=== PATIENT | male | born 1950 | race Hispanic/Latino ===

== ENCOUNTER 2017-01-13 08:40 | Day surgery (SDC) | payer MEDICARE ==
[2015-01-21 13:24] VITALS: PULSE 58
[2017-01-05 10:38] VITALS: BMI 31.0
[2017-01-13] MEDS ORDERED: Flumazenil 0.1 mg/ml Inj (5ml) IVP ONE (12:52)
[2017-01-13] MEDS ORDERED: Metoprolol 1 mg/ml Inj IVP ONE ×2 (12:52→13:17)
[2017-01-13] MEDS ORDERED: Naloxone 0.4 mg/ml Inj (Adult) ONE (12:52)
[2017-01-13] MEDS ORDERED: Midazolam 2 MG/2 ML VIAL ONE (12:52)
[2017-01-13] MEDS ORDERED: Midazolam 2 MG/2 ML VIAL IV ONE ×5 (12:59→13:14)
[2017-01-13] MEDS ORDERED: Sodium Chloride 0.9% 1,000 ML IV SCH (13:45)
--- NOTE | 2017-01-13 13:56 | CARD ---
APPROVED REPORT EKG Measurement Heart [id number] OR 168P-3 [id number] <Conclusion> Sinus rhythm with marked sinus arrhythmia RBBB LAD/LAHB PRWP NSSTW changes Prolonged QTc
[2017-01-13 14:52] VITALS: BP 118/57; PULSE 52; RESP 20; TEMP 97.8; O2SAT 98
--- NOTE | 2017-01-13 19:13 | CARD ---
APPROVED REPORT EXAM: Transesophageal echocardiogram with color flow Doppler and Synchronized Cardioversion. INDICATION Atrial Fibrillation 2D DIMENSIONS Left Atrium (2D)5.0 (1.6-4.0cm) Aortic Valve AoV Peak Edpjyett611.0cm/Jc Peak GR.10mmHg Mitral Valve E/A ratio0.0 TDI E/Lateral E'0.0E/Medial E'0.0 Reason For Test : SURAJ before cardioversion PROCEDURE After obtaining informed consent, patient underwent transesophageal echo in the Echo Lab. Type of Sedation : Conscious Sedation Sedation was administered by . Sedation was achieved with Versed and , Fentanyl 4 mg and 150mcg intravenously. Transesophageal probe was inserted and advanced into esophagus without difficulty. Echo enhancement indication: R/O Septal defect. Echo enhancement agent administered: Agitated Saline The SURAJ was performed without complications. Synchronized Cardioversion attempted: Successful Synchronized Cardioversion acheived with 200 Joules after first attempt(s). Rhythm following Synchronized Cardioversion: Normal Sinus Rhythm Throughout the procedure, the blood pressure, pulse oximetry, cardiac rhythm, and rate were monitored. The patient tolerated the procedure without adverse effects. Recovery from conscious sedation was uneventful and vital signs were stable. LEFT VENTRICLE The left ventricle is normal size. There is mild to moderate concentric left ventricular hypertrophy. The left ventricular function is normal.EF-60-65% There is normal LV segmental wall motion. A fib No left ventricle thrombus noted on this study. There is no ventricular septal defect visualized. There is no left ventricular aneurysm. There is no mass noted in the left ventricle. RIGHT VENTRICLE The right ventricle is mildly dilated. There is normal right ventricular wall thickness. The right ventricular systolic function is normal. ATRIA The left atrium is mildly dilated. The right atrium is moderately dilated. The interatrial septum is intact with no evidence for an atrial septal defect. AORTIC VALVE The aortic valve is normal in structure. There is trace aortic regurgitation. There is no aortic valvular stenosis. There is no aortic valvular vegetation. MITRAL VALVE The mitral valve leaflets are thickened. There is no evidence of mitral valve prolapse. There is no mitral valve stenosis. Mitral regurgitation is moderate. TRICUSPID VALVE The tricuspid valve leaflets display thickening. There is trace tricuspid regurgitation. There is no tricuspid valve prolapse or vegetation. There is no tricuspid valve stenosis. PULMONIC VALVE The pulmonary valve is normal in structure. There is trace pulmonic valvular regurgitation. There is no pulmonic valvular stenosis. GREAT VESSELS The aortic root is normal in size. The ascending aorta is normal in size. The pulmonary artery is normal. The IVC is normal in size and collapses >50% with inspiration. PERICARDIAL EFFUSION There is a trace pericardial effusion. There is no pleural effusion. <Conclusion> The left ventricle is normal size. There is mild to moderate concentric left ventricular hypertrophy. The left ventricular function is normal.EF-60-65%. Plaque in descending aorta. Intact intra atrial septum by color flow and bubble study. Velocity in RAÚL >0.4 m/s 200 Joules Synchronized Cardioversion done, pt converted to NSR. cc;Dr. Payne.
== END 2017-01-13 15:34 | disposition home or self-care (01) ==
LOC: TEE 08:40 → EDSTATUS 10:00 → TEE 15:34
PROVIDERS: ATTEND Internal Medicine Cardiovascular Disease
DX: I48.91 Unspecified atrial fibrillation (principal); I11.0 Hypertensive heart disease with heart failure; I50.9 Heart failure, unspecified; I25.10 Atherosclerotic heart disease of native coronary artery without angina pectoris
CPT/HCPCS: 92960; 93005; 93312; J2250; J3010; J7040

== ENCOUNTER 2017-04-04 13:13 | Inpatient (IN) | payer MEDICARE ==
[2017-04-04 13:14] VITALS: BMI 31.0
[2017-04-04] MEDS ORDERED: Sodium Chloride 0.9% 1,000 ML IV STA (14:14)
[2017-04-04] MEDS ORDERED: Iohexol 240 (50 ml) ONE (14:18)
--- NOTE | 2017-04-04 14:19 | ED PDOC ---
Arrival/HPI - General Chief Complaint: GI Problem Time Seen by Provider: 04/04/17 14:00 Historian: Patient - History of Present Illness Narrative History of Present Illness (Text): 04/04/17 14:10 Blanco Russell is a 66 year old male, whose past medical history includes, COPD and A fib, who presents to the emergency department complaining of constipaiton in which he has bowel movements every 4 days. Patient states that whenever he eats, he feels that his food gets stuck. Patient says he tried drinking prune juice, apple juice, or laxatives which brought some relief but their effects did not last. Patient denies any nausea, vomiting, or any other complaint at this time. Time/Duration: < month Symptom Onset: Gradual Symptom Course: Intermittent Activities at Onset: Rest Context: Home Past Medical History - Provider Review Nursing Documentation Reviewed: Yes - Infectious Disease Hx of Infectious Diseases: None - Tetanus Immunization Tetanus Immunization: Unknown - Cardiac Hx Atrial Fibrillation: Yes Hx Pacemaker: No - Pulmonary Hx Respiratory Disorders: Yes Hx Bronchitis: Yes Hx Chronic Obstructive Pulmonary Disease (COPD): Yes Hx Pneumonia: Yes - Neurological Hx Paralysis: No - HEENT Hx HEENT Disorder: No - Renal Hx Renal Disorder: No - Endocrine/Metabolic Hx Endocrine Disorders: No - Hematological/Oncological Hx Blood Transfusions: No - Musculoskeletal/Rheumatological Hx Musculoskeletal Disorders: Yes (RA) Hx Arthritis: Yes Hx Rheumatoid Arthritis: Yes - Gastrointestinal Hx Gastrointestinal Disorders: No - Genitourinary/Gynecological Hx Genitourinary Disorders: No - Psychiatric Hx Emotional Abuse: No Hx Physical Abuse: No Hx Substance Use: No - Surgical History Other/Comment: 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 SURAJ. R foot surgery - Anesthesia Hx Anesthesia: Yes Hx Anesthesia Reactions: No Hx Malignant Hyperthermia: No - Suicidal Assessment Feels Threatened In Home Enviroment: No Family/Social History - Physician Review Nursing Documentation Reviewed: Yes Family/Social History: No Known Family HX Smoking Status: Heavy Smoker > 10 Cigarettes Daily Hx Alcohol Use: Yes Frequency of alcohol use: Socially Hx Substance Use: No Allergies/Home Meds Allergies/Adverse Reactions: Allergies No Known Allergies Allergy (Verified 01/20/15 15:42) Home Medications: Home Meds Medication Instructions Recorded Confirmed Atenolol [Tenormin] 25 mg PO DAILY 01/21/15 04/04/17 Digoxin 0.125 mg PO DAILY 01/21/15 04/04/17 Ezetimibe [Zetia] 10 mg PO DAILY 01/21/15 04/04/17 Furosemide [Lasix] 40 mg PO DAILY 01/21/15 04/04/17 Isosorbide Mononitrate [Imdur] 30 mg PO DAILY 01/21/15 04/04/17 Rosuvastatin Calcium [Crestor] 20 mg PO DAILY 01/21/15 04/04/17 amLODIPine [Norvasc] 10 mg PO DAILY 01/21/15 04/04/17 ALPRAZolam [Xanax] 0.25 mg PO DAILY PRN 01/31/15 04/04/17 Omeprazole [Prilosec] 40 mg PO DAILY 01/31/15 04/04/17 Potassium Chloride [Klor-Con 10] 10 meq PO DAILY 02/28/15 04/04/17 Aspirin [Aspirin EC] 325 mg PO DAILY 01/05/17 04/04/17 Folic Acid 1 mg PO DAILY 01/05/17 04/04/17 Methotrexate 15 mg PO WED 01/05/17 04/04/17 Multivit-Min/FA/Lycopen/Lutein 1 tab PO DAILY 01/05/17 04/04/17 [Centrum Silver Tablet] traMADol [Ultram] 50 mg PO QID PRN 01/05/17 04/04/17 Clopidogrel [Plavix] 1 tab PO DAILY 04/04/17 04/04/17 Digoxin [Lanoxin] 1 tab PO DAILY 04/04/17 04/04/17 Review of Systems - Physician Review All systems were reviewed & negative as marked: Yes - Review of Systems Constitutional: absent: Fevers, Night Sweats Eyes: absent: Vision Changes ENT: absent: Hearing Changes Respiratory: absent: SOB, Cough Cardiovascular: absent: Chest Pain Gastrointestinal: Constipation (bowel movement every four days). absent: Abdominal Pain Genitourinary Male: absent: Dysuria Musculoskeletal: absent: Arthralgias Skin: absent: Rash Neurological: absent: Headache, Dizziness Endocrine: absent: Diaphoresis Hemo/Lymphatic: absent: Adenopathy Physical Exam Vital Signs Reviewed: Yes Vital Signs Temp Pulse Resp BP Pulse Ox 04/04/17 17:32 64 18 125/64 98 04/04/17 16:16 69 18 128/68 98 04/04/17 15:14 75 18 130/70 98 04/04/17 13:56 97.8 F 77 18 131/68 98 Temperature: Afebrile Blood Pressure: Normal Pulse: Regular Respiratory Rate: Normal Appearance: Positive for: Well-Appearing, Non-Toxic, Comfortable Pain Distress: None Mental Status: Positive for: Alert and Oriented X 3 - Systems Exam Head: Present: Atraumatic, Normocephalic Pupils: Present: PERRL Extroacular Muscles: Present: EOMI Conjunctiva: Present: Normal Mouth: Present: Moist Mucous Membranes Neck: Present: Normal Range of Motion Respiratory/Chest: Present: Clear to Auscultation, Good Air Exchange. No: Respiratory Distress, Accessory Muscle Use Cardiovascular: Present: Regular Rate and Rhythm, Normal S1, S2. No: Murmurs Abdomen: Present: Tenderness (tender upper abdominal area) Back: Present: Normal Inspection Upper Extremity: Present: Normal Inspection. No: Cyanosis, Edema Lower Extremity: Present: Normal Inspection. No: Edema Neurological: Present: GCS=15, CN II-XII Intact, Speech Normal Skin: Present: Warm, Dry, Normal Color. No: Rashes Psychiatric: Present: Alert, Oriented x 3, Normal Insight, Normal Concentration Medical Decision Making - RAD Interpretation Radiology Orders: 04/04/17 14:14 ABD PELVIS PO & IV CONTRAST [CT] Stat - Medication Orders Current Medication Orders: Sodium Chloride (Sodium Chloride 0.9%) 1,000 mls @ 100 mls/hr IV .Q10H STA Stop: 04/05/17 00:13 Last Admin: 04/04/17 15:00 Dose: 100 mls/hr Sodium Chloride (Sodium Chloride 0.9%) 1,000 mls @ 100 mls/hr IV .Q10H OLMAN Discontinued Medications Famotidine (Pepcid) 20 mg IVP STAT STA Stop: 04/04/17 14:15 Last Admin: 04/04/17 15:10 Dose: 20 mg Iohexol (Omnipaque 240 (50 Ml)) Confirm Administered Dose 50 ml .ROUTE .STK-MED ONE Stop: 04/04/17 14:19 Iohexol (Omnipaque 350 100 Ml) Confirm Administered Dose 350 mg .ROUTE .STK-MED ONE Stop: 04/04/17 16:59 ED OBSERVATION Date of observation admission: 04/04/17 Time of observation admission: 14:00 - Observation admission statement Patient is being placed in observation because:: Impression: 66 year old male complaining of constipation in which he has a bowel movement every four days. Differential Diagnosis included but are not limited to: R/o obstruction vs. gastritis vs. constipation - Goals of Observation Goals of observation are:: Plan: -- Abdomen and Pelvis CT with contrast -- Labs -- Pepcid and IV fluids -- Reassess and disposition 8:28:17 - Patient has pancreatitis. CT shows pancreatitis and gallstones. No cholecytitis. I discussed case with Dr. Barroso and will admit to med/surg for pancreatitis. US ordered and Dr. Barroso will f/u. - Scribe Statement The provider has reviewed the documentation as recorded by the Albino Sousa Provider Scribe Attestation: All medical record entries made by the Scribe were at my direction and personally dictated by me. I have reviewed the chart and agree that the record accurately reflects my personal performance of the history, physical exam, medical decision making, and the department course for this patient. I have also personally directed, reviewed, and agree with the discharge instructions and disposition. Disposition/Present on Arrival - Present on Arrival Any Indicators Present on Arrival: No History of DVT/PE: No History of Uncontrolled Diabetes: No Urinary Catheter: No History of Decub. Ulcer: No History Surgical Site Infection Following: None - Disposition Have Diagnosis and Disposition been Completed?: Yes Diagnosis: Pancreatitis Disposition Time: 17:45 Patient Plan: Admission Condition: FAIR
[2017-04-04 15:29] LABS: BASO # 0.05 K/mm3 (0.0-2.0); BASO % 0.3 % (0.0-3.0); EOS # 0.3 (0.0-0.7); EOS % 2.1 % (1.5-5.0); GRAN # 11.21 (1.4-6.5); GRAN % 72.3 % (50.0-68.0); HEMATOCRIT 44.7 % (42.0-52.0); LYMPH # 2.6 (1.2-3.4); LYMPH % 16.5 % (22.0-35.0); MEAN CELL VOLUME 90.1 fl (80.0-105.0); MEAN CORPUSCULAR HEMOGLOBIN 33.1 pg (25.0-35.0); MEAN CORPUSCULAR HGB CONC 36.7 g/dl (31.0-37.0); MEAN PLATELET VOLUME 10.9 fl (7.0-11.0); MONO # 1.4 (0.1-0.6); MONO % 8.8 % (1.0-6.0); RED CELL DISTRIBUTION WIDTH 14.1 % (11.5-14.5); WHITE BLOOD COUNT 15.5 10^3/ul (4.5-11.0)
[2017-04-04 15:36] LABS: INR 1.11 (0.93-1.08); PARTIAL THROMBOPLASTIN TIME 27.1 Seconds (23.7-30.8)
[2017-04-04 16:17] LABS: ALB/GLOB RATIO 1.5 (1.1-1.8); ALKALINE PHOSPHATASE 70 U/L (38-133); ALT/SGPT 50 U/L (7-56); AST/SGOT 41 U/L (15-59); BILIRUBIN,TOTAL 0.9 mg/dL (0.2-1.3); BLOOD UREA NITROGEN 11 mg/dL (7-21); CALCIUM 9.3 mg/dL (8.4-10.5); CARBON DIOXIDE 26 mmol/L (21-33); CHLORIDE 100 mmol/L (98-107); GFR AFRICAN-AMERICAN > 60; GLUCOSE,RANDOM 117 mg/dL (70-110); POTASSIUM 3.6 mmol/L (3.6-5.0); SODIUM 137 mmol/L (132-148); TOTAL PROTEIN 7.4 g/dL (5.8-8.3)
[2017-04-04 16:26] LABS: LIPASE 2531 U/L (23-300)
[2017-04-04] MEDS ORDERED: Iohexol 350 MG/100 ML VIAL ONE (16:58)
[2017-04-04] MEDS ORDERED: Sodium Chloride 0.9% 1,000 ML IV SCH (17:00)
--- NOTE | 2017-04-04 17:35 | CT ---
PROCEDURE: CT Abdomen and Pelvis with contrast HISTORY: abd pain, constipation r/o obstruction COMPARISON: None. TECHNIQUE: Contrast dose: 92 mL of Omnipaque 350. Axial and reformatted coronal and sagittal CT images of the abdomen and pelvis were obtained after IV contrast and oral contrast administration. Radiation dose: Total exam DLP = 749.3 mGy-cm. This CT exam was performed using one or more of the following dose reduction techniques: Automated exposure control, adjustment of the mA and/or kV according to patient size, and/or use of iterative reconstruction technique. FINDINGS: LOWER THORAX: There are small cystic formation seen at the right lower lobe right middle lobe and to a less degree at the left lower lobe has a shape of honey cramping suggestive of mild lung fibrosis likely UIP. LIVER: Unremarkable. No gross lesion or ductal dilatation. GALLBLADDER AND BILE DUCTS: The gallbladder is mildly to moderately distended likely contains small stones and sludge. No evidence of acute cholecystitis. PANCREAS: There are mild inflammatory changes and fat stranding surrounding the pancreatic body and tail suspicious for pancreatitis. There are scattered small foci of calcification in the pancreas suggestive of chronic pancreatitis. The main pancreatic duct is not dilated. SPLEEN: Unremarkable. ADRENALS: Unremarkable. No mass. KIDNEYS AND URETERS: The kidneys enhance symmetrically without evidence of hydronephrosis. There are cystic lesions seen in both kidneys larger and more on the right. VASCULATURE: Unremarkable. No aortic aneurysm. BOWEL: [id number] constipation more prominent at the right colon. O evidence of high-grade bowel obstruction. Scattered colonic diverticulosis are seen without CT evidence of diverticulitis. APPENDIX: There is no evidence of appendicitis. PERITONEUM: Unremarkable. No free fluid. No free air. LYMPH NODES: Unremarkable. No enlarged lymph nodes. BLADDER: Mild urinary bladder wall thickening. REPRODUCTIVE: Moderately enlarged prostate. BONES: No acute fractureMild compression deformity of L1 noted with the age is indeterminate in this exam. Mild osteoarthritic changes. . OTHER FINDINGS: There is moderate-size fat containing left inguinal hernia. The sigmoid colon is slightly protruded inside the right inguinal hernia. IMPRESSION: No evidence of bowel obstruction. Moderate constipation more prominent at the right colon. Fat stranding and inflammatory changes surrounding the pancreas suspicious for pancreatitis. Punctate calcification in the pancreas suggestive of chronic pancreatitis. Distended gallbladder likely contains small stones or sludge without evidence of acute cholecystitis. Mild hepatic steatosis. Age indeterminate mild compression deformity of L1.
--- NOTE | 2017-04-04 18:19 | CP.PCM.HP ---
<Vanna Rodríguez - Last Filed: 04/05/17 00:07> History of Present Illness - History of Present Illness History of Present Illness: CC: Epigastric pain and constipation Patient is a 66 y/o M with PMH of COPD, h/o Afib with h/o SURAJ/cardioversion, CAD with 15 stents, chronic constipation, RA and OA presenting with epigastric pain, and inability to empty his bowel completely for 10 days. Patient states he has been suffering from constipation for few weeks now, has tried prune juice , Colace, and miralax but still feels like food is stuck in his belly. Last time patient had bowel movement was 4 days ago, and the stool was hard. Patient denies radiation of the pain. Patient uses tramadol RA induced LE pain. Patient otherwise denies cp, sob, nausea, vomiting or diarrhea, denies chills, fever, denies dysurea, increased frequency, hematochezia, brbpr, denies dizziness or lightheadedness. Cardiology: Dr Payne. PMH: COPD, h/o Afib with h/o SURAJ/cardioversion, CAD with 15 stents, chronic constipation, RA and OA PSH: PCI, SURAJ, wrist surgery 2nd to RA. FMH: Non contributory Social: smokes cigar for 15 years, smoked tobacco prior to that, denies alcohol or illicit drug use. Lives with . Home meds: please see emr for full list. Present on Admission - Present on Admission Any Indicators Present on Admission: No History of DVT/PE: No History of Uncontrolled Diabetes: No Urinary Catheter: No Decubitus Ulcer Present: No Review of Systems - Review of Systems All systems: reviewed and no additional remarkable complaints except Review of Systems: As per HPI. Past Patient History - Infectious Disease Hx of Infectious Diseases: None - Tetanus Immunizations Tetanus Immunization: Unknown - Past Social History Smoking Status: Heavy Smoker > 10 Cigarettes Daily Cigar Use: Yes (For 15 years. ) Alcohol: None Drugs: Denies Home Situation {Lives}: With Family - CARDIAC Hx Atrial Fibrillation: Yes Hx Pacemaker: No - PULMONARY Hx Respiratory Disorders: Yes Hx Bronchitis: Yes Hx Chronic Obstructive Pulmonary Disease (COPD): Yes Hx Pneumonia: Yes - NEUROLOGICAL Hx Paralysis: No - HEENT Hx HEENT Problems: No - RENAL Hx Chronic Kidney Disease: No - ENDOCRINE/METABOLIC Hx Endocrine Disorders: No - HEMATOLOGICAL/ONCOLOGICAL Hx Blood Transfusions: No - MUSCULOSKELETAL/RHEUMATOLOGICAL Hx Musculoskeletal Disorders: Yes (RA) Hx Arthritis: Yes Hx Rheumatoid Arthritis: Yes - GASTROINTESTINAL Hx Gastrointestinal Disorders: No - GENITOURINARY/GYNECOLOGICAL Hx Genitourinary Disorders: No - PSYCHIATRIC Hx Emotional Abuse: No Hx Physical Abuse: No Hx Substance Use: No - SURGICAL HISTORY Other/Comment: 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 SURAJ. R foot surgery - ANESTHESIA Hx Anesthesia: Yes Hx Anesthesia Reactions: No Hx Malignant Hyperthermia: No Meds Allergies/Adverse Reactions: Allergies Allergy/AdvReac Type Severity Reaction Status Date / Time No Known Allergies Allergy Verified 01/20/15 15:42 Physical Exam - Constitutional Appears: No Acute Distress - Head Exam Head Exam: ATRAUMATIC, NORMAL INSPECTION, NORMOCEPHALIC - Eye Exam Eye Exam: EOMI, Normal appearance, PERRL. absent: Scleral icterus Pupil Exam: NORMAL ACCOMODATION, PERRL - ENT Exam ENT Exam: Mucous Membranes Moist, Normal Exam - Neck Exam Neck exam: Positive for: Normal Inspection. Negative for: Full Rom - Respiratory Exam Respiratory Exam: Clear to Auscultation Bilateral, NORMAL BREATHING PATTERN. absent: Rales, Rhonchi, Wheezes, Respiratory Distress, Stridor - Cardiovascular Exam Cardiovascular Exam: REGULAR RHYTHM, RRR, +S1, +S2. absent: Bradycardia, Tachycardia, Gallop, JVD, Rubs, Systolic Murmur - GI/Abdominal Exam GI & Abdominal Exam: Normal Bowel Sounds, Soft. absent: Distended, Firm, Guarding, Rigid, Tenderness - Extremities Exam Extremities exam: Positive for: normal inspection. Negative for: pedal edema, tenderness - Back Exam Back exam: NORMAL INSPECTION - Neurological Exam Neurological exam: Alert, Oriented x3, Reflexes Normal - Psychiatric Exam Psychiatric exam: Normal Affect, Normal Mood - Skin Skin Exam: Dry, Intact, Normal Color, Warm Results - Vital Signs Recent Vital Signs: Last Vital Signs Temp 97.8 F 04/04/17 13:56 Pulse 64 04/04/17 17:32 Resp 18 04/04/17 17:32 BP 125/64 04/04/17 17:32 Pulse Ox 98 04/04/17 17:32 - Labs Result Diagrams: 04/04/17 15:10 04/04/17 15:40 Labs: Laboratory Results - last 24 hr 04/04/17 04/04/17 04/04/17 15:10 15:10 15:40 WBC 15.5 H D RBC 4.96 Hgb 16.4 Hct 44.7 MCV 90.1 MCH 33.1 MCHC 36.7 RDW 14.1 Plt Count 210 MPV 10.9 Gran % 72.3 H Lymph % (Auto) 16.5 L [place] % (Auto) 8.8 H Eos % (Auto) 2.1 Baso % (Auto) 0.3 Gran # 11.21 H Lymph # 2.6 [place] # 1.4 H Eos # 0.3 Baso # 0.05 PT 12.0 H INR 1.11 H APTT 27.1 Sodium 137 Potassium 3.6 Chloride 100 Carbon Dioxide 26 Anion Gap 15 BUN 11 Creatinine 0.7 Est GFR ( Amer) > 60 Est GFR (Non-Af Amer) > 60 Random Glucose 117 H Calcium 9.3 Total Bilirubin 0.9 AST 41 ALT 50 Alkaline Phosphatase 70 Total Protein 7.4 Albumin 4.4 Globulin 3.0 Albumin/Globulin Ratio 1.5 Lipase 2531 H Assessment & Plan - Assessment and Plan (Free Text) Assessment: 66 y/o M with PMH of COPD, h/o Afib with h/o SURAJ/cardioversion, Anxiety, CAD with 15 stents, chronic constipation, RA and OA presenting with epigastric pain and constipation. Patient was found to have elevated lipase and pancreatitis on CT. Plan: 1) Epigastric pain likely 2nd to pancreatitis induced by cholelithiasis - Consider trygliceridemia - r/o cholangitis, r/o intestinal ischemia - Lipase was 2531 - LRTs are normal. - CT with pancreatitis and stone versus sludge. - Will obtain abdominal u/s to evaluate the biliary system - Surgery consult - NPO except meds. - NS@125 cc/hr. 2) Leukocytosis- with no tachycardia, afebrile, - Likely reactive -Will hold off antibiotics and reevaluate. 2) Chronic constipation - Will consider suppository 3) CAD with stents - will continue with plavix, - Will continue with atenolol - Will continue imdur for stable angina. 4) HLD- Will continue zetia and lipitor 5) HTN- Will continue with Norvasc 6) h/o Afib with h/o SURAJ and cardioversion - will continue with digoxin 7) Rheumatoid arthritis - will continue methotrexate - continue with folic acid. 8) OA- will hold tramadol 2nd to constipation 9) Tobacco abuse- will start nicotine patch 10) Gi prophyalxis: Pepcid, DVT prophylaxis: SCDs. 11) Anxiety- will continue home dose of xanax, prn. Patient see, examined and case discussed with Dr Barroso. - Date & Time Date: 04/05/17 Time: 16:35 <Gracia Barroso MD - Last Filed: 04/05/17 15:11> Results - Vital Signs Recent Vital Signs: Last Vital Signs Temp 97.9 F 04/05/17 09:14 Pulse 88 04/05/17 09:14 Resp 20 04/05/17 09:14 BP 144/80 04/05/17 11:01 Pulse Ox 97 04/05/17 09:14 - Labs Result Diagrams: 04/05/17 06:45 04/05/17 06:45 Labs: Laboratory Results - last 24 hr 04/05/17 04/05/17 04/05/17 06:30 06:45 06:45 WBC 14.4 H RBC 4.70 Hgb 15.1 Hct 41.9 L MCV 89.1 MCH 32.1 MCHC 36.0 RDW 13.8 Plt Count 179 MPV 10.6 Gran % 76.3 H Lymph % (Auto) 12.6 L [place] % (Auto) 8.4 H Eos % (Auto) 2.5 Baso % (Auto) 0.2 Gran # 11.01 H Lymph # 1.8 [place] # 1.2 H Eos # 0.4 Baso # 0.03 Sodium 137 Potassium 3.5 L Chloride 103 Carbon Dioxide 25 Anion Gap 13 BUN 8 Creatinine 0.6 Est GFR ( Amer) > 60 Est GFR (Non-Af Amer) > 60 Random Glucose 114 H Calcium 8.8 Magnesium 1.6 L Triglycerides 161 H Amylase 163 H Lipase 1531 H Attending/Attestation - Attestation I have personally seen and examined this patient.: Yes I have fully participated in the care of the patient.: Yes I have reviewed all pertinent clinical information: Yes Notes (Text): 04/05/17 15:04 Patient was seen and examined . Agreed with resident assessment and plan. 66 Yrs old male with PMH of CAD, SP multiple cardiac stent.AF SP cardioversion, not on any oral anticoagulation,HTN , Hyperlipidemia is admitted with acute Pancreatitis, has poosble gall stone on CT.CBD is normal.We will get right upper quadrant USG.We will also get GI and surgery consult.We will keep patient NPO , will hydrate and monitor.Patient cardiac status is stable at this time.We will continue current medications for CAD. Management plan was discussed in detail with patient Education was provided. 04/05/17 15:08
[2017-04-04] MEDS ORDERED: Digoxin 125 mcg (0.125 mg) Tab PO STA (18:23)
--- NOTE | 2017-04-04 19:04 | US ---
HISTORY: abd pain r/o cholecytitis COMPARISON: CT abdomen and pelvis with contrast performed 04/04/17 TECHNIQUE: Sonographic evaluation of the abdomen. FINDINGS: LIVER: Measures 14.3 cm in sagittal dimension and appears within normal limits of size, shape, and echotexture. No focal hepatic mass identified. The main portal vein appears patent with normal directional flow. No intrahepatic bile duct dilatation. GALLBLADDER: Suspected gallstones demonstrated on CT are not well appreciated on the submitted views. No gallbladder wall thickening. Negative sonographic Lyons's sign as assessed by the facialist. COMMON BILE DUCT: Measures 6 mm. PANCREAS: Not well visualized. RIGHT KIDNEY: Measures 10.9 x 6.0 x 6.2 cm. 1.0 x 0.7 x 1.2 cm right renal cyst. No hydronephrosis or obstructing calculus identified. LEFT KIDNEY: Measures 11.6 x 6.5 x 6.2 cm. 1.3 x 0.7 x 1.1 cm parapelvic cyst. No obstructing calculus or hydronephrosis identified. SPLEEN: Measures approximately 11 cm. AORTA: Limited views appear unremarkable. IVC: Limited views appear unremarkable. OTHER FINDINGS: None. IMPRESSION: Echogenic liver may be seen in setting of hepatic parenchymal disease or fatty infiltration. Bilateral renal cysts. Suspected gallstones demonstrated on CT are not well appreciated on the submitted views. No gallbladder wall thickening. Negative sonographic Lyons's sign as assessed by the facialist.
--- NOTE | 2017-04-04 19:48 | CP.PCM.CON ---
History of Present Illness - History of Present Illness History of Present Illness: General Surgery Dr. Duarte 66 y/o M w/ PMHx of CAD, [place], Afib, HTN, HLD, COPD presents to the ED c/o abd pain and constipation [id number]. Pt states pain started in RUQ/epigastric 10 days ago concurrently w/ constipation. Pt states pain resolves after BM for which pt requires laxatives and stool softeners. Pt admits to taking daily Tramadol for RA pain. Pt reports last BM was 4days ago. Pain non-radiating, diffuse abd pain. PO intake makes pain worse. Pt reports decreased appetite, early satiety, weight loss, and frequent urination. Pt reports improved chronic pitting edema. 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, SURAJ, R foot surgery, R hand surgery SHx: (+) tobacco use, social EtOH, denies drug use FHx: noncontributory Review of Systems - Review of Systems All systems: reviewed and no additional remarkable complaints except (see HPI) Past Patient History - Infectious Disease Hx of Infectious Diseases: None - Tetanus Immunizations Tetanus Immunization: Unknown - Past Social History Smoking Status: Heavy Smoker > 10 Cigarettes Daily - CARDIAC Hx Atrial Fibrillation: Yes Hx Pacemaker: No - PULMONARY Hx Respiratory Disorders: Yes Hx Bronchitis: Yes Hx Chronic Obstructive Pulmonary Disease (COPD): Yes Hx Pneumonia: Yes - NEUROLOGICAL Hx Paralysis: No - HEENT Hx HEENT Problems: No - RENAL Hx Chronic Kidney Disease: No - ENDOCRINE/METABOLIC Hx Endocrine Disorders: No - HEMATOLOGICAL/ONCOLOGICAL Hx Blood Transfusions: No - MUSCULOSKELETAL/RHEUMATOLOGICAL Hx Musculoskeletal Disorders: Yes (RA) Hx Arthritis: Yes Hx Rheumatoid Arthritis: Yes - GASTROINTESTINAL Hx Gastrointestinal Disorders: No - GENITOURINARY/GYNECOLOGICAL Hx Genitourinary Disorders: No - PSYCHIATRIC Hx Emotional Abuse: No Hx Physical Abuse: No Hx Substance Use: No - SURGICAL HISTORY Other/Comment: 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 SURAJ. R foot surgery - ANESTHESIA Hx Anesthesia: Yes Hx Anesthesia Reactions: No Hx Malignant Hyperthermia: No Meds Allergies/Adverse Reactions: Allergies Allergy/AdvReac Type Severity Reaction Status Date / Time No Known Allergies Allergy Verified 01/20/15 15:42 - Medications Medications: Current Medications Alprazolam (Xanax) 0.25 mg PO DAILY PRN; Protocol PRN Reason: Anxiety Stop: 04/11/17 18:10 Amlodipine Besylate (Norvasc) 10 mg PO DAILY [facility] Atenolol (Tenormin) 25 mg PO DAILY [facility] Atorvastatin Calcium (Lipitor) 40 mg PO DIN [facility] Last Admin: 04/04/17 19:31 Dose: Not Given Clopidogrel Bisulfate (Plavix) 75 mg PO DAILY [facility] Digoxin (Lanoxin) 0.125 mg PO 1400 [facility] Ezetimibe (Zetia) 10 mg PO DAILY [facility] Famotidine (Pepcid) 40 mg PO HS [facility] Folic Acid (Folic Acid) 1 mg PO DAILY [facility] Sodium Chloride (Sodium Chloride 0.9%) 1,000 mls @ 100 mls/hr IV .Q10H STA Stop: 04/05/17 00:13 Last Admin: 04/04/17 15:00 Dose: 100 mls/hr Sodium Chloride (Sodium Chloride 0.9%) 1,000 mls @ 150 mls/hr IV .Q6H40M [facility] Isosorbide Mononitrate (Imdur) 30 mg PO DAILY [facility] Physical Exam - Constitutional Appears: Non-toxic, No Acute Distress - Head Exam Head Exam: NORMAL INSPECTION - Eye Exam Eye Exam: Normal appearance. absent: Scleral icterus - ENT Exam ENT Exam: Mucous Membranes Moist - Respiratory Exam Respiratory Exam: NORMAL BREATHING PATTERN. absent: Accessory Muscle Use, Respiratory Distress - Cardiovascular Exam Cardiovascular Exam: absent: Bradycardia, Tachycardia - GI/Abdominal Exam GI & Abdominal Exam: Soft, Tenderness (minimal TTP RUQ). absent: Distended, Guarding, Rebound Additional comments: negative Lyons's sign - Extremities Exam Extremities exam: Positive for: normal inspection - Neurological Exam Neurological exam: Alert, Oriented x3 - Psychiatric Exam Psychiatric exam: Normal Affect, Normal Mood - Skin Skin Exam: Dry, Intact, Normal Color, Warm Results - Vital Signs Recent Vital Signs: Last Vital Signs Temp 97.8 F 04/04/17 13:56 Pulse 64 04/04/17 17:32 Resp 18 04/04/17 17:32 BP 125/64 04/04/17 17:32 Pulse Ox 98 04/04/17 17:32 - Labs Result Diagrams: 04/04/17 15:10 04/04/17 15:40 - Imaging and Cardiology CT scan - abdomen Status: Image reviewed by me, Report reviewed by me US - abdomen Status: Image reviewed by me, Report reviewed by me Assessment & Plan - Assessment and Plan (Free Text) Assessment: 66 y/o M w/ abd pain 2/2 acute vs chronic pancreatitis w/ possible cholelithiasis - IVF @150mls/hr - recommend MRCP - recommend GI consult - pain management - stool softeners - NPO - GI PPx Pt discussed w/ Dr. Gerald Jean DO PGY2
[2017-04-04] MEDS: Sodium Chloride 0.9% 1,000 ML IV SCH (20:03)
[2017-04-05] MEDS: Sodium Chloride 0.9% 1,000 ML IV SCH ×3 (03:17→21:51)
[2017-04-05 07:30] LABS: BASO # 0.03 K/mm3 (0.0-2.0); BASO % 0.2 % (0.0-3.0); EOS # 0.4 (0.0-0.7); EOS % 2.5 % (1.5-5.0); GRAN # 11.01 (1.4-6.5); GRAN % 76.3 % (50.0-68.0); HEMATOCRIT 41.9 % (42.0-52.0); LYMPH # 1.8 (1.2-3.4); LYMPH % 12.6 % (22.0-35.0); MEAN CELL VOLUME 89.1 fl (80.0-105.0); MEAN CORPUSCULAR HEMOGLOBIN 32.1 pg (25.0-35.0); MEAN PLATELET VOLUME 10.6 fl (7.0-11.0); MONO # 1.2 (0.1-0.6); MONO % 8.4 % (1.0-6.0); RED CELL DISTRIBUTION WIDTH 13.8 % (11.5-14.5); WHITE BLOOD COUNT 14.4 10^3/ul (4.5-11.0)
[2017-04-05 07:42] LABS: BLOOD UREA NITROGEN 8 mg/dL (7-21); CALCIUM 8.8 mg/dL (8.4-10.5); CARBON DIOXIDE 25 mmol/L (21-33); CHLORIDE 103 mmol/L (95-110); GFR AFRICAN-AMERICAN > 60; GLUCOSE,RANDOM 114 mg/dL (70-110); LIPASE 1531 U/L (23-300); POTASSIUM 3.5 mmol/L (3.6-5.0); SODIUM 137 mmol/L (132-148)
[2017-04-05] MEDS ORDERED: Gadodiamide 287 MG/ML VIAL (15ML) IV ONE (07:54)
--- NOTE | 2017-04-05 08:32 | CP.PCM.PN ---
Subjective - Date & Time of Evaluation Date of Evaluation: 04/05/17 Time of Evaluation: 08:28 - Subjective Subjective: General Surgery Progress note for DR. Duarte PT S&E at bedside. Patient states he's tolerating pain well. JESUS. PAtient is scheduled for MRCP this morning. Patient finished procedure at 08:20 Patient denies F/C, N/V, Abdominal pain, Diarrhea. Objective - Vital Signs/Intake and Output Vital Signs (last 24 hours): Temp Pulse Resp BP Pulse Ox 98.1 F 60 18 135/74 98 04/04/17 23:00 04/04/17 23:00 04/04/17 23:00 04/04/17 23:00 04/04/17 23:00 - Medications Medications: Current Medications Alprazolam (Xanax) 0.25 mg PO DAILY PRN; Protocol PRN Reason: Anxiety Stop: 04/11/17 18:10 Last Admin: 04/04/17 23:16 Dose: 0.25 mg Amlodipine Besylate (Norvasc) 10 mg PO DAILY [facility] Atenolol (Tenormin) 25 mg PO DAILY [facility] Atorvastatin Calcium (Lipitor) 40 mg PO DIN [facility] Last Admin: 04/04/17 19:31 Dose: Not Given Clopidogrel Bisulfate (Plavix) 75 mg PO DAILY [facility] Digoxin (Lanoxin) 0.125 mg PO 1400 [facility] Docusate Sodium (Colace) 100 mg PO BID [facility] Ezetimibe (Zetia) 10 mg PO DAILY [facility] Famotidine (Pepcid) 40 mg PO HS [facility] Last Admin: 04/04/17 21:50 Dose: 40 mg Folic Acid (Folic Acid) 1 mg PO DAILY [facility] Sodium Chloride (Sodium Chloride 0.9%) 1,000 mls @ 150 mls/hr IV .Q6H40M [facility] Last Admin: 04/05/17 03:17 Dose: 150 mls/hr Potassium Chloride (Potassium Chloride 20 Meq/100 Ml) 20 meq in 100 mls @ 50 mls/hr IVPB ONCE ONE Stop: 04/05/17 10:23 Isosorbide Mononitrate (Imdur) 30 mg PO DAILY [facility] Nicotine (Nicoderm Cq) 1 patch TD DAILY [facility] Polyethylene Glycol (Miralax) 17 gm PO DAILY [facility] - Labs Labs: 04/05/17 06:45 04/05/17 06:45 PT 12.0 Seconds (9.9-11.8) H 04/04/17 15:10 INR 1.11 (0.93-1.08) H 04/04/17 15:10 APTT 27.1 Seconds (23.7-30.8) 04/04/17 15:10 - Constitutional Appears: No Acute Distress - Head Exam Head Exam: NORMAL INSPECTION - Eye Exam Eye Exam: EOMI, Normal appearance - ENT Exam ENT Exam: Mucous Membranes Moist - Neck Exam Neck Exam: Full ROM, Normal Inspection - Respiratory Exam Respiratory Exam: Clear to Ausculation Bilateral, NORMAL BREATHING PATTERN - Cardiovascular Exam Cardiovascular Exam: REGULAR RHYTHM. absent: Bradycardia, Tachycardia - GI/Abdominal Exam GI & Abdominal Exam: Soft, Normal Bowel Sounds. absent: Distended, Firm, Guarding, Rigid, Tenderness, Rebound - Extremities Exam Extremities Exam: Full ROM, Normal Capillary Refill, Normal Inspection. absent : Pedal Edema - Neurological Exam Neurological Exam: Alert, Awake, Normal Gait, Oriented x3 - Psychiatric Exam Psychiatric exam: Flat Affect, Normal Mood - Skin Skin Exam: Dry, Intact, Normal Color, Warm Assessment and Plan - Assessment and Plan (Free Text) Assessment: 66 y/o M w/ abd pain 2/2 acute vs chronic pancreatitis w/ possible cholelithiasis Plan: IVF @150mls/hr f/u MRCP final read f/u GI consult recommendations c/w pain management c/w stool softeners Diet: NPO GI PPx F/u Lipase, F/u lipid panel, elevated TG Pt discussed w/ Dr. Duarte
[2017-04-05 09:20] LABS: MAGNESIUM 1.6 mg/dL (1.7-2.2)
[2017-04-05] MEDS ORDERED: Magnesium Sulfate 1 gm in D5W 1 GM/100 ML BAG IVPB ONE (09:26)
[2017-04-05] MEDS ORDERED: Digoxin 125 mcg (0.125 mg) Tab PO SCH (10:00)
[2017-04-05] MEDS ORDERED: POLYETHYLENE GLYCOL 3350 17 GM/Dose PACKET PO SCH (10:00)
--- NOTE | 2017-04-05 10:25 | MRI ---
PROCEDURE: MRI Abdomen with and without contrast with MRCP imaging HISTORY: Pancreatitis, cholelithiasis COMPARISON: CT of the abdomen 04/04/2017. TECHNIQUE: Multisequence, multiplanar MR images of the abdomen with and without gadolinium contrast enhancement. FINDINGS: LIVER: There is no evidence of intrahepatic ductal dilatation. The hepatic in common duct are normal in caliber. There is a 2 cm gap in the common duct within the pancreas. It is unlikely that this represents a fixed stenosis in the absence of intrahepatic ductal dilatation. The finding could be transient. There is no obvious stone. This finding is seen on image 18 series 8 and image 3 series 1402. There is no evidence of a pancreatic mass. GALLBLADDER: Small stones are layered in the gallbladder fundus. SPLEEN: Unremarkable. PANCREAS: Several small cysts are seen adjacent to the pancreatic duct. This could be related to previous pancreatitis. The CT scan shows calcifications consistent with chronic pancreatitis. Alternatively the findings could be secondary to IPMN, intraductal papillary mucinous neoplasm. ADRENALS: Unremarkable. KIDNEYS: Unremarkable. AORTA: No aneurysm. ASCITES: None. PERITONEUM: Unremarkable. LYMPH NODES: Unremarkable. OTHER FINDINGS: None. IMPRESSION: Multiple small gallstones layered in the gallbladder fundus. No evidence of intrahepatic ductal dilatation. There is a 2 cm segment of nonvisualization of the common duct which could be due to intermittent spasm. A fixed stenosis is unlikely in the absence of intrahepatic dilatation. There are small cysts seen along the pancreatic duct which could be related to previous pancreatitis. IPMN cannot be excluded and followup is recommended
[2017-04-05] MEDS: Digoxin 125 mcg (0.125 mg) Tab PO SCH (13:22)
--- NOTE | 2017-04-05 15:25 | CP.PCM.PN ---
<AprilLeoran - Last Filed: 04/05/17 17:42> Subjective - Date & Time of Evaluation Date of Evaluation: 04/05/17 Time of Evaluation: 09:22 - Subjective Subjective: This is a 66 yr old male who was seen at bedside in no acute distress. The patient rates the pain a 2/10 in severity. The patient reports having a bowel movement this morning that was non-bloody. The patient denies any nausea, vomiting, chest pain, shortness of breath, lightheadedness, dizziness, or any other complaints. Objective - Vital Signs/Intake and Output Vital Signs (last 24 hours): Temp Pulse Resp BP Pulse Ox 97.9 F 88 20 144/80 97 04/05/17 09:14 04/05/17 09:14 04/05/17 09:14 04/05/17 11:01 04/05/17 09:14 - Medications Medications: Current Medications Alprazolam (Xanax) 0.25 mg PO DAILY PRN; Protocol PRN Reason: Anxiety Stop: 04/11/17 18:10 Last Admin: 04/04/17 23:16 Dose: 0.25 mg Amlodipine Besylate (Norvasc) 10 mg PO DAILY [facility] Last Admin: 04/05/17 11:01 Dose: 10 mg Atenolol (Tenormin) 25 mg PO DAILY [facility] Last Admin: 04/05/17 11:01 Dose: 25 mg Atorvastatin Calcium (Lipitor) 40 mg PO DIN [facility] Last Admin: 04/04/17 19:31 Dose: Not Given Clopidogrel Bisulfate (Plavix) 75 mg PO DAILY [facility] Last Admin: 04/05/17 11:01 Dose: 75 mg Digoxin (Lanoxin) 0.125 mg PO 1400 [facility] Last Admin: 04/05/17 13:22 Dose: 0.125 mg Docusate Sodium (Colace) 100 mg PO BID [facility] Last Admin: 04/05/17 12:24 Dose: 100 mg Ezetimibe (Zetia) 10 mg PO DAILY [facility] Last Admin: 04/05/17 11:01 Dose: 10 mg Famotidine (Pepcid) 40 mg PO HS [facility] Last Admin: 04/04/17 21:50 Dose: 40 mg Folic Acid (Folic Acid) 1 mg PO DAILY [facility] Last Admin: 04/05/17 11:01 Dose: 1 mg Sodium Chloride (Sodium Chloride 0.9%) 1,000 mls @ 150 mls/hr IV .Q6H40M [facility] Last Admin: 04/05/17 11:02 Dose: 150 mls/hr Isosorbide Mononitrate (Imdur) 30 mg PO DAILY [facility] Last Admin: 04/05/17 11:01 Dose: 30 mg Nicotine (Nicoderm Cq) 1 patch TD DAILY [facility] Last Admin: 04/05/17 11:01 Dose: 1 patch - Labs Labs: 04/05/17 06:45 04/05/17 06:45 PT 12.0 Seconds (9.9-11.8) H 04/04/17 15:10 INR 1.11 (0.93-1.08) H 04/04/17 15:10 APTT 27.1 Seconds (23.7-30.8) 04/04/17 15:10 - Constitutional Appears: Well, Non-toxic - Head Exam Head Exam: NORMOCEPHALIC - Eye Exam Eye Exam: EOMI, Normal appearance, PERRL Pupil Exam: NORMAL ACCOMODATION, PERRL - ENT Exam ENT Exam: Mucous Membranes Moist, Normal Exam - Neck Exam Neck Exam: Normal Inspection - Respiratory Exam Respiratory Exam: Clear to Ausculation Bilateral, NORMAL BREATHING PATTERN. absent: Wheezes, Respiratory Distress - Cardiovascular Exam Cardiovascular Exam: REGULAR RHYTHM, +S1, +S2. absent: Tachycardia - GI/Abdominal Exam GI & Abdominal Exam: Soft, Normal Bowel Sounds. absent: Distended, Tenderness - Extremities Exam Extremities Exam: Full ROM - Neurological Exam Neurological Exam: Alert, Awake, CN II-XII Intact - Skin Skin Exam: Dry, Intact, Normal Color. absent: Pallor Assessment and Plan (1) Constipation Assessment & Plan: Colace for the constipation. Re-evaluate in the morning. Status: Acute (2) Pancreatitis Assessment & Plan: Surgery consult appreciated. MRCP showed small gall stones on gallbladder fundus, no evidence of intrahepatic ductal dilation, and small cysts along pancreatic duct. Will advance diet to clear liquid as tolerated. Spoke with Dr. Diane from GI and discussed the patient with him. Patient will be monitored for the present time. Will re-draw Lipase level in the morning and re-evaluate. Status: Acute - Assessment and Plan (Free Text) Assessment: CAD - c/w plavix and atenolol HLD -c/w Zetia and lipitor HTN -c/w Norvasc <Chio WINSTON,Gracia - Last Filed: 04/09/17 10:56> Objective - Vital Signs/Intake and Output Vital Signs (last 24 hours): Temp Pulse Resp BP Pulse Ox 97.3 F L 57 L 20 125/73 98 04/06/17 16:00 04/06/17 16:00 04/06/17 16:00 04/06/17 16:00 04/06/17 16:00 - Labs Labs: 04/06/17 06:30 04/06/17 06:30 PT 12.0 Seconds (9.9-11.8) H 04/04/17 15:10 INR 1.11 (0.93-1.08) H 04/04/17 15:10 APTT 27.1 Seconds (23.7-30.8) 04/04/17 15:10 Attending/Attestation - Attestation I have personally seen and examined this patient.: Yes I have fully participated in the care of the patient.: Yes I have reviewed all pertinent clinical information, including history, physical exam and plan: Yes Notes (Text): 04/09/17 10:54 Patient was seen and examined with forensic medical examiner. Agreed with resident assessment and plan. 66 Yrs old male with PMH of CAD, SP multiple cardiac stent., proxysmal AF SP cardioversion, not on any oral anticoagulation,HTN , Hyperlipidemia is admitted with acute Pancreatitis, MRCP questionable Pancreatic defect, will follow up GI recommendation.Patient is tolerating clear liquid diet Management plan was discussed in detail with patient Education was provided.
--- NOTE | 2017-04-05 19:09 | CP.PCM.CON ---
<Rakel Amaro - Last Filed: 04/05/17 18:53> History of Present Illness - History of Present Illness History of Present Illness: Seen and examined at the bedside this afternoon, chart was reviewed Request for GI consult: Gallstone pancreatitis. HPI: This is a 66-year-old male, with a past medical history of COPD, atrial fibrillation, coronary artery disease with 15 stents, and chronic constipation, came to the emergency room complaining of epigastric pain and severe constipation. The patien has not had a bowel movement for 10 days. Patient states that he was taking MiraLAX, Colace as well as prune juice. He did say that he had a bowel movement 4 days ago, the stool was hard, denies any melena or bright red blood. His abdominal pain is in the right upper quadrant. He denies any shortness of breath ,chest pain, nausea, vomiting, fever, or chills. On admission he had a CAT scan of the abdomen and pelvis and IV contrast, this revealed moderate constipation with no evidence of bowel obstruction, inflammation in the pancreas suspicious for pancreatitis as well as calcifications in the pancreas suggestive of chronic pancreatitis, as well as distended containing small stones or sludge without evidence of acute cholecystitis. Patient was sent , revealed common bile duct except millimeters no dilatation, suspected gallston was not appreciated films, no gallbladder wall thickening. He was also sent with and without co and this revealed small gallstones la There is a 2 cm s Again it reveals small cyst along the pancreatic The patient denies alcohol use, he denies having EGD or colonoscopy. Denies weight loss or anorexia. PMH: COPD, atrial fibrillation, coronary artery dis 15 stent, rheumatoid arthritis PSH: SURAJ with cardioversion,multiple cardiac stent, wrist sx secondary to RA Family history: Denies any known family history of cancer Social history: Smokes cigars, used to smoke tobacc Meds: Significant for Plavix, MAR reviewed Allergies: No known allergies ROS: systems reviewed, see HPI Past Patient History - Infectious Disease Hx of Infectious Diseases: None - Tetanus Immunizations Tetanus Immunization: Unknown - Past Social History Smoking Status: Heavy Smoker > 10 Cigarettes Daily - CARDIAC Hx Atrial Fibrillation: Yes Hx Pacemaker: No - PULMONARY Hx Respiratory Disorders: Yes Hx Bronchitis: Yes Hx Chronic Obstructive Pulmonary Disease (COPD): Yes Hx Pneumonia: Yes - NEUROLOGICAL Hx Paralysis: No - HEENT Hx HEENT Problems: No - RENAL Hx Chronic Kidney Disease: No - ENDOCRINE/METABOLIC Hx Endocrine Disorders: No - HEMATOLOGICAL/ONCOLOGICAL Hx Blood Transfusions: No - MUSCULOSKELETAL/RHEUMATOLOGICAL Hx Musculoskeletal Disorders: Yes (RA) Hx Arthritis: Yes Hx Rheumatoid Arthritis: Yes - GASTROINTESTINAL Hx Gastrointestinal Disorders: No - GENITOURINARY/GYNECOLOGICAL Hx Genitourinary Disorders: No - PSYCHIATRIC Hx Emotional Abuse: No Hx Physical Abuse: No Hx Substance Use: No - SURGICAL HISTORY Other/Comment: 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 SURAJ. R foot surgery - ANESTHESIA Hx Anesthesia: Yes Hx Anesthesia Reactions: No Hx Malignant Hyperthermia: No Meds Allergies/Adverse Reactions: Allergies Allergy/AdvReac Type Severity Reaction Status Date / Time No Known Allergies Allergy Verified 01/20/15 15:42 - Medications Medications: Current Medications Alprazolam (Xanax) 0.25 mg PO DAILY PRN; Protocol PRN Reason: Anxiety Stop: 04/11/17 18:10 Last Admin: 04/04/17 23:16 Dose: 0.25 mg Amlodipine Besylate (Norvasc) 10 mg PO DAILY [facility] Last Admin: 04/05/17 11:01 Dose: 10 mg Atenolol (Tenormin) 25 mg PO DAILY [facility] Last Admin: 04/05/17 11:01 Dose: 25 mg Atorvastatin Calcium (Lipitor) 40 mg PO DIN [facility] Last Admin: 04/05/17 17:08 Dose: 40 mg Clopidogrel Bisulfate (Plavix) 75 mg PO DAILY [facility] Last Admin: 04/05/17 11:01 Dose: 75 mg Digoxin (Lanoxin) 0.125 mg PO 1400 [facility] Last Admin: 04/05/17 13:22 Dose: 0.125 mg Docusate Sodium (Colace) 100 mg PO BID [facility] Last Admin: 04/05/17 17:08 Dose: 100 mg Ezetimibe (Zetia) 10 mg PO DAILY [facility] Last Admin: 04/05/17 11:01 Dose: 10 mg Famotidine (Pepcid) 40 mg PO HS [facility] Last Admin: 04/04/17 21:50 Dose: 40 mg Folic Acid (Folic Acid) 1 mg PO DAILY [facility] Last Admin: 04/05/17 11:01 Dose: 1 mg Sodium Chloride (Sodium Chloride 0.9%) 1,000 mls @ 150 mls/hr IV .Q6H40M [facility] Last Admin: 04/05/17 11:02 Dose: 150 mls/hr Isosorbide Mononitrate (Imdur) 30 mg PO DAILY [facility] Last Admin: 04/05/17 11:01 Dose: 30 mg Nicotine (Nicoderm Cq) 1 patch TD DAILY [facility] Last Admin: 04/05/17 11:01 Dose: 1 patch Physical Exam - Constitutional Appears: No Acute Distress - Head Exam Head Exam: NORMOCEPHALIC - Eye Exam Eye Exam: Normal appearance. absent: Scleral icterus - ENT Exam ENT Exam: Mucous Membranes Moist - Neck Exam Neck exam: Positive for: Normal Inspection - Respiratory Exam Respiratory Exam: Clear to Auscultation Bilateral. absent: Respiratory Distress , NORMAL BREATHING PATTERN - Cardiovascular Exam Cardiovascular Exam: +S1, +S2 - GI/Abdominal Exam GI & Abdominal Exam: Normal Bowel Sounds, Soft. absent: Guarding, Organomegaly , Rebound, Tenderness - Extremities Exam Extremities exam: Positive for: pedal pulses present. Negative for: calf tenderness, pedal edema - Neurological Exam Neurological exam: Alert, Oriented x3 - Skin Skin Exam: Dry, Warm Results - Vital Signs Recent Vital Signs: Last Vital Signs Temp 98.4 F 04/05/17 16:00 Pulse 58 L 04/05/17 16:00 Resp 18 04/05/17 16:00 BP 120/74 04/05/17 16:00 Pulse Ox 99 04/05/17 16:00 - Labs Result Diagrams: 04/05/17 06:45 04/05/17 06:45 Labs: Laboratory Results - last 24 hr 04/05/17 04/05/17 04/05/17 06:30 06:45 06:45 WBC 14.4 H RBC 4.70 Hgb 15.1 Hct 41.9 L MCV 89.1 MCH 32.1 MCHC 36.0 RDW 13.8 Plt Count 179 MPV 10.6 Gran % 76.3 H Lymph % (Auto) 12.6 L [place] % (Auto) 8.4 H Eos % (Auto) 2.5 Baso % (Auto) 0.2 Gran # 11.01 H Lymph # 1.8 [place] # 1.2 H Eos # 0.4 Baso # 0.03 Sodium 137 Potassium 3.5 L Chloride 103 Carbon Dioxide 25 Anion Gap 13 BUN 8 Creatinine 0.6 Est GFR ( Amer) > 60 Est GFR (Non-Af Amer) > 60 Random Glucose 114 H Calcium 8.8 Magnesium 1.6 L Triglycerides 161 H Amylase 163 H Lipase 1531 H Assessment & Plan - Assessment and Plan (Free Text) Assessment: Assessment: Abdominal pain may be secondary to gallstone pancreatitis ? Chronic pancreatitis, MRCP/CT scan show pancreatic calcifications and pancreatic cysts,? IPMN Moderate constipation Leukocytosis History of atrial fibrillation Coronary artery disease with history of multiple stents Plan: Nothing by mouth, continue IV fluids for hydration, Continue Pepcid continue colace, add Miralax Bid On Plavix trend lipase Patient would benefit from EUS when optimal for further evaluation of pancreas surgical FU Thank you for this consult and for allowing us to participate in your patient's care, will make further recommendations based upon clinical course. Seen and discussed with Dr. Martino. <Evelin Martino V - Last Filed: 04/05/17 22:58> Meds - Medications Medications: Current Medications Alprazolam (Xanax) 0.25 mg PO DAILY PRN; Protocol PRN Reason: Anxiety Stop: 04/11/17 18:10 Last Admin: 04/04/17 23:16 Dose: 0.25 mg Amlodipine Besylate (Norvasc) 10 mg PO DAILY [facility] Last Admin: 04/05/17 11:01 Dose: 10 mg Atenolol (Tenormin) 25 mg PO DAILY [facility] Last Admin: 04/05/17 11:01 Dose: 25 mg Atorvastatin Calcium (Lipitor) 40 mg PO DIN [facility] Last Admin: 04/05/17 17:08 Dose: 40 mg Clopidogrel Bisulfate (Plavix) 75 mg PO DAILY [facility] Last Admin: 04/05/17 11:01 Dose: 75 mg Digoxin (Lanoxin) 0.125 mg PO 1400 [facility] Last Admin: 04/05/17 13:22 Dose: 0.125 mg Docusate Sodium (Colace) 100 mg PO BID [facility] Last Admin: 04/05/17 17:08 Dose: 100 mg Ezetimibe (Zetia) 10 mg PO DAILY [facility] Last Admin: 04/05/17 11:01 Dose: 10 mg Famotidine (Pepcid) 40 mg PO HS [facility] Last Admin: 04/05/17 21:16 Dose: 40 mg Folic Acid (Folic Acid) 1 mg PO DAILY [facility] Last Admin: 04/05/17 11:01 Dose: 1 mg Sodium Chloride (Sodium Chloride 0.9%) 1,000 mls @ 150 mls/hr IV .Q6H40M [facility] Last Admin: 04/05/17 21:51 Dose: 150 mls/hr Isosorbide Mononitrate (Imdur) 30 mg PO DAILY [facility] Last Admin: 04/05/17 11:01 Dose: 30 mg Nicotine (Nicoderm Cq) 1 patch TD DAILY [facility] Last Admin: 04/05/17 11:01 Dose: 1 patch Polyethylene Glycol (Miralax) 17 gm PO BID [facility] Results - Vital Signs Recent Vital Signs: Last Vital Signs Temp 98.4 F 04/05/17 16:00 Pulse 58 L 04/05/17 16:00 Resp 18 04/05/17 16:00 BP 120/74 04/05/17 16:00 Pulse Ox 99 04/05/17 16:00 - Labs Result Diagrams: 04/05/17 06:45 04/05/17 06:45 Labs: Laboratory Results - last 24 hr 04/05/17 04/05/17 04/05/17 06:30 06:45 06:45 WBC 14.4 H RBC 4.70 Hgb 15.1 Hct 41.9 L MCV 89.1 MCH 32.1 MCHC 36.0 RDW 13.8 Plt Count 179 MPV 10.6 Gran % 76.3 H Lymph % (Auto) 12.6 L [place] % (Auto) 8.4 H Eos % (Auto) 2.5 Baso % (Auto) 0.2 Gran # 11.01 H Lymph # 1.8 [place] # 1.2 H Eos # 0.4 Baso # 0.03 Sodium 137 Potassium 3.5 L Chloride 103 Carbon Dioxide 25 Anion Gap 13 BUN 8 Creatinine 0.6 Est GFR ( Amer) > 60 Est GFR (Non-Af Amer) > 60 Random Glucose 114 H Calcium 8.8 Magnesium 1.6 L Triglycerides 161 H Amylase 163 H Lipase 1531 H Attending/Attestation - Attestation I have personally seen and examined this patient.: Yes I have fully participated in the care of the patient.: Yes I have reviewed all pertinent clinical information: Yes Notes (Text): 04/05/17 22:24 This is an addendum to the GI consult report by Rakel Amaro APN This 66-year-old patient with past medical history of significant coronary artery disease with the multiple stents on Plavix, history of rheumatoid arthritis presented with abdominal pain and constipation. Patient was found to have elevated pancreatic enzymes . Patient had multiple studies done including CT and sonogram and MRI. CT scan showed questionable inflammatory changes in the body and tail area. CT also revealed multiple pancreatic calcifications CT did not reveal any dilated pancreatic duct. However close view of the MRI revealed small cysts in the pancreas. The concerning MR finding is the 2cm discontinuty of the common bile duct in the imaging. Sonogram, MRI and CT all revealed a sludge/small stones in the fundus of the gallbladder The common bile duct however is nondilated and measured only 6 mm . Physical examination his abdomen was soft only minimal tenderness on deep palpation otherwise unremarkable. Pancreatic enzymes showing downward trend Recommendations 1. Start the patient on clear liquid diet 2. Agree with the MiraLAX to treat constipation 3. Patient is on Plavix would benefit from initial diagnostic EUS evaluation particularly to evaluate the common bile duct discontinunity noticed in the MRI imaging. No obvious mass noticed in the pancreas however the sensitivity of endoscopic ultrasound is much higher than MRI in identifying pancreatic lesions 4. Surgical follow-up. I reviewed the surgical follow-up note and I agree with differing cholecystectomy at the present time until the issue of common bile duct is resolved 5. The pancreatic cystic lesions appeared to be small. EUS can be helpful to evaluating this cysts. The main pancreatic duct appears nondilated. Typically in the multicystic pancreatic lesions of IPMN, PD can be prominent. This patient with immunocompromised status because of the methotrexate the IPMN , if it is present could be a real concern.The progression IPMN can be rapid. 6. Other differential diagnosis for elevated pancreatic enzymes could be due to intestinal ischemia, in view of patient has significant atherosclerotic disease coronary artery disease with multiple stents. However CT and MR imaging does not show any bowel thickening and also patient is clinically as inpatient is not typical for ischemia. Thank you very much for allowing us to participate in the care of the patient.The patient was already seen and evaluated by Dr. Rosario. We will discuss with the medical team regarding the continuity of GI followup.
--- NOTE | 2017-04-05 20:19 | CON ---
DATE: 04/05/2017 HISTORY OF PRESENT ILLNESS: I saw the patient this morning. He is a 66-year-old male with past history of COPD, AFib, recent cardioversion, coronary artery disease with multiple stents, and periodic constipation. He related that prior to admission, he had an issue with constipation for roughly about a week and half. He indicates his last bowel movement was several days ago. There is no hematemesis or rectal bleeding. Consult was called for issues related to pancreatitis and gallstone disease. The patient notes at the bedside this morning that the pain is roughly about 3-4/10. His abdomen is not distended and he has no complaints of nausea. PHYSICAL EXAMINATION: VITAL SIGNS: I reviewed this patient's vital signs. HEENT: Noncontributory. LUNGS: Decreased breath sounds at the bases. HEART: Irregular rhythm. ABDOMEN: Soft, no tenderness in the right lower quadrant and left lower quadrant, and also no tenderness in the periumbilical area. There is fullness in the area above the umbilicus on to the upper left. There is some mild fullness also on the area of the left paraumbilical. There is some mild epigastric discomfort. LABORATORY DATA: I reviewed this patient's laboratory data, White count on admission 15.5, normal INR with chemistry noncontributory. Lipase on admission was 25 to 31. Note that the transaminase, alkaline phosphatase, and bilirubin are all within normal limits. Abdominal ultrasound findings indicate that the common bile duct was within normal limits. Gallbladder shows no gallbladder wall thickening or surrounding fluid; however, gallstones suspected. Note that the abdominal pelvic CT scan indicate gallbladder is moderately distended, subcutaneous small stones and sludge. No evidence of acute cholecystitis based on CT criteria. There is mild inflammatory changes without stranding on the pancreatic body and tail. There is also pancreatic calcifications noted. No dilatation of pancreatic duct noted. Note that the CT indicated a moderate amount of stool. Evaluation of the CAT scan images indicate pancreatic calcifications. There does not appear to be significant avulsion of the pancreas. Gallbladder wall seems to be exaggerated. There is an excessive amount of stool noted in the area of the ascending colon extending from cecum through the proximal transverse colon. ASSESSMENT AND PLAN: This is a 66-year-old white male admitted with complaints of abdominal pain, which had decreased after medication, currently at the level of 3-4/10. His lipase level was elevated on admission. There is some moderate x-ray evidence of pancreatitis noted on CT scan including pancreatic stranding. Note that he does not have typical pain at presentation of acute pancreatitis. Discomfort elicited over the pancreas on exam is minimal. Does have evidence of substantial amount of stool in the proximal ascending colon. I think in order to pass this, the patient eventually will need some degree of colon prep for example half of GoLYTELY or something similar. Before this is given, however, the patient will be seen by surgeons and there is apparently a consideration of MRCP and possible cholecystectomy for this patient. Patient will be followed up by his attending physician, Dr. Alonzo this morning. Ben Diane DO, PhD [email or web address]
[2017-04-05] MEDS ORDERED: Docusate-Senna 50 mg-8.6 mg Tab PO SCH (22:00)
[2017-04-06 05:46] VITALS: RESP 20
[2017-04-06 07:00] LABS: BASO # 0.03 K/mm3 (0.0-2.0); BASO % 0.3 % (0.0-3.0); EOS # 0.5 (0.0-0.7); EOS % 5.1 % (1.5-5.0); GRAN # 6.46 (1.4-6.5); GRAN % 65.1 % (50.0-68.0); HEMATOCRIT 42.6 % (42.0-52.0); LYMPH % 20.1 % (22.0-35.0); MEAN CELL VOLUME 90.1 fl (80.0-105.0); MEAN CORPUSCULAR HEMOGLOBIN 31.3 pg (25.0-35.0); MEAN CORPUSCULAR HGB CONC 34.7 g/dl (31.0-37.0); MEAN PLATELET VOLUME 10.7 fl (7.0-11.0); MONO # 0.9 (0.1-0.6); MONO % 9.4 % (1.0-6.0); RED CELL DISTRIBUTION WIDTH 13.8 % (11.5-14.5); WHITE BLOOD COUNT 9.9 10^3/ul (4.5-11.0)
[2017-04-06 07:37] LABS: AMYLASE 113 U/L (35-125); BLOOD UREA NITROGEN 7 mg/dL (7-21); CALCIUM 8.8 mg/dL (8.4-10.5); CARBON DIOXIDE 25 mmol/L (21-33); CHLORIDE 107 mmol/L (98-107); GFR AFRICAN-AMERICAN > 60; GLUCOSE,RANDOM 102 mg/dL (70-110); LIPASE 1071 U/L (23-300); POTASSIUM 3.9 mmol/L (3.6-5.0); SODIUM 141 mmol/L (132-148)
[2017-04-06 08:57] LABS: ALB/GLOB RATIO 1.3 (1.1-1.8); BILIRUBIN,DIRECT 0.4 mg/dL (0.0-0.4); BILIRUBIN,TOTAL 0.9 mg/dL (0.2-1.3)
[2017-04-06] MEDS ORDERED: POLYETHYLENE GLYCOL 3350 17 GM/Dose PACKET PO SCH ×2 (10:00→14:00)
[2017-04-06] MEDS ORDERED: Magnesium Citrate Oral SOL (300 ml) PO ONE (10:36)
[2017-04-06] MEDS: Digoxin 125 mcg (0.125 mg) Tab PO SCH (15:37)
[2017-04-06 15:42] VITALS: PULSE 67
--- NOTE | 2017-04-06 16:35 | CP.PCM.PN ---
Subjective - Date & Time of Evaluation Date of Evaluation: 04/06/17 Time of Evaluation: 10:40 - Subjective Subjective: Seen and examined at the bedside earlier today., The chart was reviewed. Patient denies nausea, vomiting, fever or chills. His abdominal pain has improved and he tolerated the clear liquid diet. He hasn't had any further bowel movements since yesterday which she reports was a formed stool no reports of any bleeding. No acute overnight events reported. Objective - Vital Signs/Intake and Output Vital Signs (last 24 hours): Temp Pulse Resp BP Pulse Ox 98 F 61 20 147/83 96 04/06/17 07:00 04/06/17 07:00 04/06/17 07:00 04/06/17 10:37 04/06/17 07:00 Intake and Output: 04/06/17 04/06/17 06:59 18:59 Intake Total 2640 960 Balance 2640 960 - Medications Medications: Current Medications Alprazolam (Xanax) 0.25 mg PO DAILY PRN; Protocol PRN Reason: Anxiety Stop: 04/11/17 18:10 Last Admin: 04/05/17 22:31 Dose: 0.25 mg Amlodipine Besylate (Norvasc) 10 mg PO DAILY [facility] Last Admin: 04/06/17 10:37 Dose: 10 mg Atenolol (Tenormin) 25 mg PO DAILY [facility] Last Admin: 04/06/17 10:37 Dose: 25 mg Atorvastatin Calcium (Lipitor) 40 mg PO DIN [facility] Last Admin: 04/05/17 17:08 Dose: 40 mg Clopidogrel Bisulfate (Plavix) 75 mg PO DAILY [facility] Last Admin: 04/06/17 10:37 Dose: 75 mg Digoxin (Lanoxin) 0.125 mg PO 1400 [facility] Last Admin: 04/06/17 15:37 Dose: 0.125 mg Docusate Sodium (Colace) 100 mg PO BID [facility] Last Admin: 04/06/17 10:36 Dose: 100 mg Ezetimibe (Zetia) 10 mg PO DAILY [facility] Last Admin: 04/06/17 10:37 Dose: 10 mg Famotidine (Pepcid) 40 mg PO HS [facility] Last Admin: 04/05/17 21:16 Dose: 40 mg Folic Acid (Folic Acid) 1 mg PO DAILY [facility] Last Admin: 04/06/17 10:39 Dose: 1 mg Sodium Chloride (Sodium Chloride 0.9%) 1,000 mls @ 150 mls/hr IV .Q6H40M [facility] Last Admin: 04/05/17 21:51 Dose: 150 mls/hr Isosorbide Mononitrate (Imdur) 30 mg PO DAILY [facility] Last Admin: 04/06/17 10:37 Dose: 30 mg Nicotine (Nicoderm Cq) 1 patch TD DAILY [facility] Last Admin: 04/06/17 10:38 Dose: 1 patch Polyethylene Glycol (Miralax) 17 gm PO TID [facility] Last Admin: 04/06/17 15:23 Dose: Not Given - Labs Labs: 04/06/17 06:30 04/06/17 06:30 PT 12.0 Seconds (9.9-11.8) H 04/04/17 15:10 INR 1.11 (0.93-1.08) H 04/04/17 15:10 APTT 27.1 Seconds (23.7-30.8) 04/04/17 15:10 - Constitutional Appears: No Acute Distress - Head Exam Head Exam: NORMOCEPHALIC - Eye Exam Eye Exam: Normal appearance. absent: Scleral icterus - ENT Exam ENT Exam: Mucous Membranes Moist - Neck Exam Neck Exam: Normal Inspection - Respiratory Exam Respiratory Exam: NORMAL BREATHING PATTERN. absent: Respiratory Distress - Cardiovascular Exam Cardiovascular Exam: +S1, +S2 - GI/Abdominal Exam GI & Abdominal Exam: Soft, Normal Bowel Sounds. absent: Guarding, Tenderness, Organomegaly, Rebound - Extremities Exam Extremities Exam: Normal Capillary Refill. absent: Calf Tenderness, Pedal Edema - Neurological Exam Neurological Exam: Alert, Awake, Oriented x3 - Skin Skin Exam: Dry, Warm Assessment and Plan - Assessment and Plan (Free Text) Assessment: Assessment: Abdominal pain may be secondary to gallstone pancreatitis Abnormal MRCP/CT scan show pancreatic calcifications and pancreatic cysts,? IPMN,the concerning MR finding is the 2cm discontinuty of the common bile duct in the imaging.CPD 6 mm, not dilated Moderate constipation Leukocytosis History of atrial fibrillation Coronary artery disease with history of multiple stents Plan: continue clear liquids and advance as tolerated continue IV fluids for hydration Continue Pepcid continue colace Increase MiraLAX to 3 times a day On Plavix trend lipase discussed with Dr. Chen and patient that would benefit from EUS when optimal for further evaluation of pancreas,can do elective outpatient , patient is currently on Plavix discussed with the medical team patient will need cardiac clearance and will need to stop Plavix but will need cardiac recommendation and must follow up with PCP, Dr. Juan prior to this being arranged. surgical FU Discussed with Dr. Martino.
[2017-04-06 17:04] VITALS: BP 125/73; PULSE 57; TEMP 97.3; O2SAT 98
--- NOTE | 2017-04-06 17:39 | CP.PCM.DIS ---
<AprilLeoran - Last Filed: 04/06/17 18:45> Provider - Provider Date of Admission: 04/04/17 17:38 Attending physician: Gracia Barroso MD Primary care physician: Leandro Alonzo MD Time Spent in preparation of Discharge (in minutes): 60 Diagnosis - Discharge Diagnosis (1) Constipation Status: Acute (2) Pancreatitis Status: Acute Hospital Course - Lab Results Lab Results: Most Recent Lab Values WBC 9.9 10^3/ul (4.5-11.0) D 04/06/17 06:30 RBC 4.73 10^6/uL (3.5-6.1) 04/06/17 06:30 Hgb 14.8 g/dL (14.0-18.0) 04/06/17 06:30 Hct 42.6 % (42.0-52.0) 04/06/17 06:30 MCV 90.1 fl (80.0-105.0) 04/06/17 06:30 MCH 31.3 pg (25.0-35.0) 04/06/17 06:30 MCHC 34.7 g/dl (31.0-37.0) 04/06/17 06:30 RDW 13.8 % (11.5-14.5) 04/06/17 06:30 Plt Count 201 10^3/uL (120.0-450.0) 04/06/17 06:30 MPV 10.7 fl (7.0-11.0) 04/06/17 06:30 Gran % 65.1 % (50.0-68.0) 04/06/17 06:30 Lymph % (Auto) 20.1 % (22.0-35.0) L 04/06/17 06:30 [place] % (Auto) 9.4 % (1.0-6.0) H 04/06/17 06:30 Eos % (Auto) 5.1 % (1.5-5.0) H 04/06/17 06:30 Baso % (Auto) 0.3 % (0.0-3.0) 04/06/17 06:30 Gran # 6.46 (1.4-6.5) 04/06/17 06:30 Lymph # 2.0 (1.2-3.4) 04/06/17 06:30 [place] # 0.9 (0.1-0.6) H 04/06/17 06:30 Eos # 0.5 (0.0-0.7) 04/06/17 06:30 Baso # 0.03 K/mm3 (0.0-2.0) 04/06/17 06:30 PT 12.0 Seconds (9.9-11.8) H 04/04/17 15:10 INR 1.11 (0.93-1.08) H 04/04/17 15:10 APTT 27.1 Seconds (23.7-30.8) 04/04/17 15:10 Sodium 141 mmol/L (132-148) 04/06/17 06:30 Potassium 3.9 mmol/L (3.6-5.0) 04/06/17 06:30 Chloride 107 mmol/L (98-107) 04/06/17 06:30 Carbon Dioxide 25 mmol/L (21-33) 04/06/17 06:30 Anion Gap 13 (10-20) 04/06/17 06:30 BUN 7 mg/dL (7-21) 04/06/17 06:30 Creatinine 0.6 mg/dL (0.5-1.4) 04/06/17 06:30 Est GFR ( Amer) > 60 04/06/17 06:30 Est GFR (Non-Af Amer) > 60 04/06/17 06:30 Random Glucose 102 mg/dL (70-110) 04/06/17 06:30 Calcium 8.8 mg/dL (8.4-10.5) 04/06/17 06:30 Magnesium 1.6 mg/dL (1.7-2.2) L 04/05/17 06:30 Total Bilirubin 0.9 mg/dL (0.2-1.3) 04/06/17 08:23 Direct Bilirubin 0.4 mg/dL (0.0-0.4) 04/06/17 08:23 AST 44 U/L (15-59) 04/06/17 08:23 ALT 44 U/L (7-56) 04/06/17 08:23 Alkaline Phosphatase 68 U/L (38-133) 04/06/17 08:23 Total Protein 7.0 g/dL (5.8-8.3) 04/06/17 08:23 Albumin 4.0 g/dL (3.0-4.8) 04/06/17 08:23 Globulin 3.0 gm/dL 04/06/17 08:23 Albumin/Globulin Ratio 1.3 (1.1-1.8) 04/06/17 08:23 Triglycerides 161 mg/dL (35-160) H 04/05/17 06:45 Amylase 113 U/L (35-125) 04/06/17 06:30 Lipase 1071 U/L (23-300) H 04/06/17 06:30 - Hospital Course Hospital Course: This is a 66 yr old male with epigastric pain and constipation. Patient was found to have elevated lipase and pancreatitis on CT and patient was admitted. On 04/05 he had a MRCP done that showed small gall stones on GB fundus, no evidence of intraehpatic ductal dilation, and small cysts along pancreatic duct. Also seen by surgery who recommended a GI consult and outpatient f/u colonoscopy. Seen by Dr. Diane who recommended to continue NPO, IV fluids, and colace. Patient seen on 04/06 doing better. Spoke with GI and decided before doing an Endoscopy U/S that we discharge him today and let him follow up with his PMD, GI, Inspector Penetrant and Cardiology before further workup. - Date & Time of H&P Date of H&P: 04/04/17 Time of H&P: 18:19 Discharge Exam - Head Exam Head Exam: NORMOCEPHALIC - Eye Exam Eye Exam: EOMI, Normal appearance, PERRL. absent: Periorbital tenderness Pupil Exam: NORMAL ACCOMODATION, PERRL. absent: Miosis - ENT Exam ENT Exam: Mucous Membranes Moist. absent: Mucous Membranes Dry - Respiratory Exam Respiratory Exam: Clear to PA & Lateral, NORMAL BREATHING PATTERN, UNREMARKABLE. absent: Accessory Muscle Use, Chest Wall Tenderness - Cardiovascular Exam Cardiovascular Exam: REGULAR RHYTHM, RRR, +S1, +S2. absent: Rubs - GI/Abdominal Exam GI & Abdominal Exam: Normal Bowel Sounds, Soft, Tenderness (Slight tenderness in the midepigastrium area). absent: Rebound, Rigid - Extremities Exam Extremities exam: normal inspection - Back Exam Back exam: NORMAL INSPECTION. absent: paraspinal tenderness - Neurological Exam Neurological exam: Alert, CN II-XII Intact, Oriented x3 - Psychiatric Exam Psychiatric exam: Normal Affect, Normal Mood - Skin Skin Exam: Dry, Intact, Normal Color Discharge Plan - Follow Up Plan Condition: GOOD Disposition: HOME/ ROUTINE Instructions: Cholecystitis (DC), Pancreatitis (DC), Constipation (DC), Magnetic Resonance Cholangiopancreatography (DC) Additional Instructions: Patient instructed to maintain soft diet for the next 2 to 3 three days and slowly advance as tolerated. Patient instructed to follow up with Cardiology, PMD, and GI within the next week. Patient instructed to return to ED for any new or worsening symptoms. Referrals: Manjeet Delaney MD [Staff Provider] - Leandro Alonzo MD [Primary Care Provider] - Gracia Payne MD [Staff Provider] - <Chio WINSTON,Gracia - Last Filed: 04/09/17 10:59> Provider - Provider Date of Admission: 04/04/17 17:38 Attending physician: Gracia Barroso MD Primary care physician: Leandro Alonzo MD Hospital Course - Lab Results Lab Results: Most Recent Lab Values WBC 9.9 10^3/ul (4.5-11.0) D 04/06/17 06:30 RBC 4.73 10^6/uL (3.5-6.1) 04/06/17 06:30 Hgb 14.8 g/dL (14.0-18.0) 04/06/17 06:30 Hct 42.6 % (42.0-52.0) 04/06/17 06:30 MCV 90.1 fl (80.0-105.0) 04/06/17 06:30 MCH 31.3 pg (25.0-35.0) 04/06/17 06:30 MCHC 34.7 g/dl (31.0-37.0) 04/06/17 06:30 RDW 13.8 % (11.5-14.5) 04/06/17 06:30 Plt Count 201 10^3/uL (120.0-450.0) 04/06/17 06:30 MPV 10.7 fl (7.0-11.0) 04/06/17 06:30 Gran % 65.1 % (50.0-68.0) 04/06/17 06:30 Lymph % (Auto) 20.1 % (22.0-35.0) L 04/06/17 06:30 [place] % (Auto) 9.4 % (1.0-6.0) H 04/06/17 06:30 Eos % (Auto) 5.1 % (1.5-5.0) H 04/06/17 06:30 Baso % (Auto) 0.3 % (0.0-3.0) 04/06/17 06:30 Gran # 6.46 (1.4-6.5) 04/06/17 06:30 Lymph # 2.0 (1.2-3.4) 04/06/17 06:30 [place] # 0.9 (0.1-0.6) H 04/06/17 06:30 Eos # 0.5 (0.0-0.7) 04/06/17 06:30 Baso # 0.03 K/mm3 (0.0-2.0) 04/06/17 06:30 PT 12.0 Seconds (9.9-11.8) H 04/04/17 15:10 INR 1.11 (0.93-1.08) H 04/04/17 15:10 APTT 27.1 Seconds (23.7-30.8) 04/04/17 15:10 Sodium 141 mmol/L (132-148) 04/06/17 06:30 Potassium 3.9 mmol/L (3.6-5.0) 04/06/17 06:30 Chloride 107 mmol/L (98-107) 04/06/17 06:30 Carbon Dioxide 25 mmol/L (21-33) 04/06/17 06:30 Anion Gap 13 (10-20) 04/06/17 06:30 BUN 7 mg/dL (7-21) 04/06/17 06:30 Creatinine 0.6 mg/dL (0.5-1.4) 04/06/17 06:30 Est GFR ( Amer) > 60 04/06/17 06:30 Est GFR (Non-Af Amer) > 60 04/06/17 06:30 Random Glucose 102 mg/dL (70-110) 04/06/17 06:30 Calcium 8.8 mg/dL (8.4-10.5) 04/06/17 06:30 Magnesium 1.6 mg/dL (1.7-2.2) L 04/05/17 06:30 Total Bilirubin 0.9 mg/dL (0.2-1.3) 04/06/17 08:23 Direct Bilirubin 0.4 mg/dL (0.0-0.4) 04/06/17 08:23 AST 44 U/L (15-59) 04/06/17 08:23 ALT 44 U/L (7-56) 04/06/17 08:23 Alkaline Phosphatase 68 U/L (38-133) 04/06/17 08:23 Total Protein 7.0 g/dL (5.8-8.3) 04/06/17 08:23 Albumin 4.0 g/dL (3.0-4.8) 04/06/17 08:23 Globulin 3.0 gm/dL 04/06/17 08:23 Albumin/Globulin Ratio 1.3 (1.1-1.8) 04/06/17 08:23 Triglycerides 161 mg/dL (35-160) H 04/05/17 06:45 Amylase 113 U/L (35-125) 04/06/17 06:30 Lipase 1071 U/L (23-300) H 04/06/17 06:30 Attending/Attestation - Attestation I have personally seen and examined this patient.: Yes I have fully participated in the care of the patient.: Yes I have reviewed all pertinent clinical information, including history, physical exam and plan: Yes Notes (Text): 04/09/17 10:56 Patient was seen and examined with medical authorization specialist. Agreed with resident assessment and plan. 66 Yrs old male with PMH of CAD, SP multiple cardiac stent., proxysmal AF SP cardioversion, not on any oral anticoagulation,HTN , Hyperlipidemia is admitted with acute Pancreatitis, MRCP questionable Pancreatic defect, .Patient case was discussed with GI , who is planning for out patient EUS. Patient is tolerating soft diet.He has been advised to stay on soft diet and advance gradually. Patient case was also discussed with his PCP over the phone. Management plan was discussed in detail with patient Education was provided.
[2017-04-07] MEDS ORDERED: Pantoprazole 40 mg EC Tab PO SCH (10:00)
[2017-04-07] MEDS ORDERED: Multivitamin Therapeutic Tab PO SCH (10:00)
== END 2017-04-06 19:50 | disposition home or self-care (01) | DRG 440 ==
LOC: ED 13:13 → EROBSV 14:15 → OBSVTOIN 17:38 → ERH 17:38 → 5RSO 20:57
PROVIDERS: ADMIT Internal Medicine; ATTEND Internal Medicine
DX: K85.90 Acute pancreatitis without necrosis or infection, unspecified (principal); I48.91 Unspecified atrial fibrillation; J44.9 Chronic obstructive pulmonary disease, unspecified; K80.20 Calculus of gallbladder without cholecystitis without obstruction; I25.10 Atherosclerotic heart disease of native coronary artery without angina pectoris; K59.09 Other constipation; M06.9 Rheumatoid arthritis, unspecified; E78.5 Hyperlipidemia, unspecified; I10 Essential (primary) hypertension; F17.290 Nicotine dependence, other tobacco product, uncomplicated; Z95.5 Presence of coronary angioplasty implant and graft

== ENCOUNTER 2017-05-04 12:47 | Inpatient (IN) | payer MEDICARE ==
[2017-05-04 12:47] VITALS: BMI 31.0
[2017-05-04] MEDS ORDERED: Sodium Chloride 0.9% 1,000 ML IV STA (13:20)
[2017-05-04] MEDS ORDERED: Morphine 4 mg/ml ISec IVP STA ×2 (13:20→17:08)
--- NOTE | 2017-05-04 13:34 | ED PDOC ---
Arrival/HPI - General Chief Complaint: Abdominal Pain Time Seen by Provider: 05/04/17 13:11 Historian: Patient - History of Present Illness Narrative History of Present Illness (Text): 05/04/17 13:15 Blanco Russell is a 66 year old male, whose past medical history includes hypertension, pancreatitis, COPD, and hypercholestrolemia, presents to the emergency department complaining of epigastric abdominal pain since this morning at around 02:00. Patient reports he has felt nauseous and has had three episodes of vomiting. He also includes that the pain radiates to his back. Patient denies any fever, diarrhea, shortness of breath, chest pain, headache, or other complaints. PMD: Dr. Deleon Time/Duration: Other (02:00 this morning ) Symptom Onset: Gradual Symptom Course: Unchanged Associated Symptoms (Text): nausea and vomiting Past Medical History - Provider Review Nursing Documentation Reviewed: Yes - Infectious Disease Hx of Infectious Diseases: None - Tetanus Immunization Tetanus Immunization: Unknown - Reproductive Currently : No - Cardiac Hx Cardiac Disorders: Yes Hx Atrial Fibrillation: Yes Hx Hypertension: Yes Hx Pacemaker: No - Pulmonary Hx Respiratory Disorders: Yes Hx Bronchitis: Yes Hx Chronic Obstructive Pulmonary Disease (COPD): Yes Hx Pneumonia: Yes - Neurological Hx Paralysis: No - HEENT Hx HEENT Disorder: No - Renal Hx Renal Disorder: No - Endocrine/Metabolic Hx Endocrine Disorders: No - Hematological/Oncological Hx Blood Transfusions: No - Musculoskeletal/Rheumatological Hx Musculoskeletal Disorders: Yes (RA) Hx Arthritis: Yes Hx Rheumatoid Arthritis: Yes - Gastrointestinal Hx Gastrointestinal Disorders: Yes Hx Pancreatitis: Yes Other/Comment: gallstones - Genitourinary/Gynecological Hx Genitourinary Disorders: No - Psychiatric Hx Psychophysiologic Disorder: Yes Hx Anxiety: Yes Hx Emotional Abuse: No Hx Physical Abuse: No Hx Substance Use: No - Surgical History Other/Comment: 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 SURAJ. R foot surgery. R hand surgery - Anesthesia Hx Anesthesia: Yes Hx Anesthesia Reactions: No Hx Malignant Hyperthermia: No - Suicidal Assessment Feels Threatened In Home Enviroment: No Family/Social History - Physician Review Nursing Documentation Reviewed: Yes Family/Social History: Unknown Family HX Smoking Status: Heavy Smoker > 10 Cigarettes Daily Hx Alcohol Use: No Hx Substance Use: No Allergies/Home Meds Allergies/Adverse Reactions: Allergies No Known Allergies Allergy (Verified 05/04/17 13:00) Home Medications: Home Meds Medication Instructions Recorded Confirmed Atenolol [Tenormin] 25 mg PO DAILY 01/21/15 05/04/17 Digoxin 0.125 mg PO DAILY 01/21/15 05/04/17 Ezetimibe [Zetia] 10 mg PO DAILY 01/21/15 05/04/17 Furosemide [Lasix] 40 mg PO DAILY 01/21/15 05/04/17 Isosorbide Mononitrate ER [Imdur 30 mg PO DAILY 01/21/15 05/04/17 ER] Rosuvastatin Calcium [Crestor] 20 mg PO DAILY 01/21/15 05/04/17 amLODIPine [Norvasc] 10 mg PO DAILY 01/21/15 05/04/17 ALPRAZolam [Xanax] 0.25 mg PO DAILY PRN 01/31/15 05/04/17 Omeprazole [Prilosec] 40 mg PO DAILY 01/31/15 05/04/17 Potassium Chloride [Klor-Con 10] 10 meq PO DAILY 02/28/15 05/04/17 Aspirin [Aspirin EC] 325 mg PO DAILY 01/05/17 05/04/17 Folic Acid 1 mg PO DAILY 01/05/17 05/04/17 Methotrexate 15 mg PO WED 01/05/17 05/04/17 Multivit-Min/FA/Lycopen/Lutein 1 tab PO DAILY 01/05/17 05/04/17 [Centrum Silver Tablet] traMADol [Ultram] 50 mg PO QID PRN 01/05/17 05/04/17 Clopidogrel [Plavix] 1 tab PO DAILY 04/04/17 05/04/17 Review of Systems - Review of Systems Constitutional: absent: Fevers Respiratory: absent: SOB Cardiovascular: absent: Chest Pain Gastrointestinal: Abdominal Pain (epigastric), Nausea, Vomiting (3 times). absent: Diarrhea, Food Intolerance Genitourinary Male: absent: Dysuria Musculoskeletal: Back Pain Neurological: absent: Headache Physical Exam Vital Signs Reviewed: Yes Vital Signs Temp Pulse Resp BP Pulse Ox 05/04/17 17:23 97.6 F 88 18 160/81 H 95 05/04/17 15:01 79 18 158/80 H 96 05/04/17 13:05 97.5 F L 79 18 127/82 96 Temperature: Afebrile Blood Pressure: Normal Pulse: Regular Respiratory Rate: Normal Appearance: Positive for: Well-Appearing, Non-Toxic, Comfortable Pain Distress: None Mental Status: Positive for: Alert and Oriented X 3 - Systems Exam Head: Present: Atraumatic, Normocephalic Pupils: Present: PERRL Extroacular Muscles: Present: EOMI Conjunctiva: Present: Normal Mouth: Present: Moist Mucous Membranes Respiratory/Chest: Present: Clear to Auscultation, Good Air Exchange. No: Respiratory Distress, Accessory Muscle Use Cardiovascular: Present: Regular Rate and Rhythm, Normal S1, S2. No: Murmurs Abdomen: Present: Tenderness (epigastric tenderness and RUQ tenderness), Normal Bowel Sounds, Other ((+) Lyons's sign ). No: Distention, Peritoneal Signs Back: Present: Normal Inspection Upper Extremity: Present: Normal Inspection. No: Cyanosis, Edema Lower Extremity: Present: Normal Inspection. No: Edema Neurological: Present: GCS=15, CN II-XII Intact, Speech Normal Skin: Present: Warm, Dry, Normal Color. No: Rashes Psychiatric: Present: Alert, Oriented x 3, Normal Insight, Normal Concentration Medical Decision Making ED Course and Treatment: 05/04/17 Impression: 66 year old male with epigastric and RUQ tenderness. Positive (+) for Lyons's sign. Differential Diagnosis included but are not limited to: pancreatitis vs. cholecystitis vs biliary colic Plan: -- Ultrasound -- Labs -- Morphine, Pepcid, Zofran, and Sodium Chloride -- Reassess and disposition Progress Notes: 05/04/17 15:26 Patient's show elevated WBC 19. Treated with Zosyn IV. Continue IVF hydration. Patient had an ultrasound with a positive cholecystitis. I discussed case with Dr. Duarte who had evaluated patient on last admission. He recommended we also get GI Dr. Martino on board. I discussed the case with Dr. Martino who requested and MRCP and he will evaluate patient. I discussed the case with Dr. 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 - Lab Interpretations Lab Results: 05/04/17 13:35 05/04/17 13:35 Lab Results 05/04/17 15:01: pO2 50, VBG pH 7.38, VBG pCO2 42.0, VBG HCO3 24.8, VBG Total CO2 26.1, VBG O2 Sat (Calc) 93.0 H, VBG Base Excess -0.4 L, VBG Potassium 3.4 L , Glucose 191 H, Lactate 2.4 H, FiO2 21.0, Sodium 138.0, Chloride 103.0, Venous Blood Potassium 3.4 L 05/04/17 13:35: Blood Type A POSITIVE, Antibody Screen Negative, BBK History Checked Patient has bt 05/04/17 13:35: Sodium 139, Potassium 3.8, Chloride 99, Carbon Dioxide 26, Anion Gap 18, BUN 11, Creatinine 0.6, Est GFR ( Amer) > 60, Est GFR (Non- Af Amer) > 60, Random Glucose 202 H, Calcium 9.3, Total Bilirubin 1.1, AST 80 H , ALT 100 H, Alkaline Phosphatase 78, Total Protein 7.6, Albumin 4.6, Globulin 3.0, Albumin/Globulin Ratio 1.5, Lipase 70 05/04/17 13:35: PT 12.4 H, INR 1.15 H, APTT 28.5 05/04/17 13:35: WBC 19.9 H D, RBC 4.86, Hgb 15.6, Hct 42.8, MCV 88.1, MCH 32.1, MCHC 36.4, RDW 13.5, Plt Count 188, MPV 10.8, Gran % 91.0 H, Lymph % (Auto) 4.8 L, Adams % (Auto) 4.0, Eos % (Auto) 0.1 L, Baso % (Auto) 0.1, Gran # 18.12 H, Lymph # 1.0 L, Adams # 0.8 H, Eos # 0.0, Baso # 0.02, Neutrophils % (Manual) 95 H , Lymphocytes % (Manual) 3 L, Monocytes % (Manual) 2, Platelet Evaluation Normal I have reviewed the lab results: Yes Interpretation: Abnormal lab values (WBC 19) - RAD Interpretation Radiology Orders: 05/04/17 13:20 ABDOMEN COMPLETE [US] Stat Head Of Ethics And Compliance: Radiologist - Medication Orders Current Medication Orders: Acetaminophen (Tylenol 325mg Tab) 650 mg PO Q6H PRN PRN Reason: Fever >100.4 F Alprazolam (Xanax) 0.25 mg PO DAILY PRN; Protocol PRN Reason: Anxiety Stop: 05/11/17 16:31 Amlodipine Besylate (Norvasc) 10 mg PO DAILY [facility] Last Admin: 05/05/17 09:04 Dose: 10 mg MAR Blood Pressure Document 05/05/17 09:04 TW (Rec: 05/05/17 09:05 TW [id number]) Blood Pressure Blood Pressure (100/60-150/90) 143/76 Atenolol (Tenormin) 25 mg PO DAILY [facility] Last Admin: 05/05/17 09:05 Dose: 25 mg MAR Pulse and Blood Pressure Document 05/05/17 09:05 TW (Rec: 05/05/17 09:05 TW [id number]) Pulse Pulse Rate (60-90) 100 Blood Pressure Blood Pressure (100/60-150/90) 143/76 Digoxin (Lanoxin) 0.125 mg PO 1400 [facility] Last Admin: 05/05/17 14:42 Dose: Famotidine (Pepcid) 20 mg IVP DAILY [facility] Last Admin: 05/05/17 09:05 Dose: 20 mg IVP Administration Document 05/05/17 09:05 TW (Rec: 05/05/17 09:05 TW [id number]) Charges for Administration # of IVP Administrations 1 Heparin Sodium (Porcine) (Heparin) 5,000 units SC Q12 [facility] PRN Reason: Protocol Hydromorphone HCl (Dilaudid) 0.5 mg IVP Q3H PRN PRN Reason: Pain, moderate (4-7) Last Admin: 05/06/17 04:13 Dose: 0.5 mg [facility] Pain Assessment Document 05/06/17 04:13 (Rec: 05/06/17 04:13 [id number] Pain Reassessment Is this a pain reassessment? No Sleep Is patient sleeping during reassessment? No Presence of Pain Presence of Pain Yes Location Pain Location Body Site Abdomen Description Description Intermittent Intensity of Pain at present 7 Acceptable Level of Pain 2 IVP Administration Document 05/06/17 04:13 (Rec: 05/06/17 04:13 [id number]) Charges for Administration # of IVP Administrations 1 Re-Assess: [facility] Pain Assessment Document 05/06/17 05:13 (Rec: 05/06/17 07:59 [id number]) Pain Reassessment Is this a pain reassessment? Yes Sleep Is patient sleeping during reassessment? Yes Meropenem 1g/NS 100mL IVPB (Meropenem 1g/Ns 100ml Ivpb) 1 gm in 100 mls @ 100 mls/hr IVPB Q8 OLMAN PRN Reason: Protocol Stop: 05/12/17 09:31 Last Admin: 05/06/17 05:04 Dose: 100 mls/hr eMAR Start Stop Document 05/06/17 05:04 KP (Rec: 05/06/17 05:04 KP [id number] Intravenous Solution Start Date 05/06/17 Start Time 05:04 Isosorbide Mononitrate (Imdur Er) 30 mg PO DAILY [facility] Last Admin: 05/05/17 09:05 Dose: 30 mg Nicotine (Nicoderm Cq) 1 patch TD DAILY [facility] Last Admin: 05/05/17 18:31 Dose: 1 patch MAR Transdermal Patch Site Document 05/05/17 18:31 TW (Rec: 05/05/17 18:34 TW [id number]) Transdermal Patch Site Transdermal Patch Site Left Outer Upper Arm Re-Assess: MAR Transdermal Patch Removal Document 05/06/17 06:31 KP (Rec: 05/06/17 07:59 KP [id number]) Transdermal Patch Removal Removal of Transdermal Patch done? No Ondansetron HCl (Zofran Inj) 4 mg IVP Q4H PRN PRN Reason: Nausea/Vomiting Ondansetron HCl (Zofran Inj) 4 mg IVP ONCE PRN PRN Reason: Nausea/Vomiting Discontinued Medications Famotidine (Pepcid) 20 mg IVP STAT STA Stop: 05/04/17 13:21 Last Admin: 05/04/17 13:39 Dose: 20 mg IVP Administration Document 05/04/17 13:39 SRE (Rec: 05/04/17 13:39 SRE [id number]) Charges for Administration # of IVP Administrations 1 Hydromorphone HCl (Dilaudid) 0.5 mg IVP Q15M PRN PRN Reason: Pain, moderate (4-7) Stop: 05/05/17 17:52 Sodium Chloride (Sodium Chloride 0.9%) 1,000 mls @ 100 mls/hr IV .Q10H STA Stop: 05/04/17 23:19 Last Admin: 05/04/17 13:41 Dose: 100 mls/hr eMAR Start Stop Document 05/04/17 13:41 SRE (Rec: 05/04/17 13:41 SRE [id number]) Intravenous Solution Start Date 05/04/17 Start Time 13:41 End Date 05/04/17 End time 14:45 Total Infusion Time 64 Piperacillin Sod/Tazobactam Sod (Zosyn 4.5 Gm In Ns 100ml) 4.5 gm in 100 mls @ 200 mls/hr IVPB STAT STA PRN Reason: Protocol Stop: 05/04/17 15:03 Last Admin: 05/04/17 15:00 Dose: 200 mls/hr eMAR Start Stop Document 05/04/17 15:00 AD (Rec: 05/04/17 15:02 AD [id number]) Intravenous Solution Start Date 05/04/17 Start Time 15:01 Metronidazole (Flagyl) 500 mg in 100 mls @ 100 mls/hr IVPB Q8 OLMAN PRN Reason: Protocol Last Admin: 05/05/17 05:33 Dose: 100 mls/hr eMAR Start Stop Document 05/05/17 05:33 SPINNING MACHINE OPERATOR (Rec: 05/05/17 05:33 SPINNING MACHINE OPERATOR [id number]) Intravenous Solution Start Date 05/05/17 Start Time 05:33 End Date 05/05/17 End time 06:33 Total Infusion Time 60 Magnesium Sulfate 2 gm/ Sodium (Chloride) 104 mls @ 102 mls/hr IVPB ONCE ONE Stop: 05/05/17 08:01 Last Admin: 05/05/17 09:05 Dose: 102 mls/hr eMAR Start Stop Document 05/05/17 09:05 TW (Rec: 05/05/17 09:05 TW [id number]) Intravenous Solution Start Date 05/05/17 Start Time 09:05 End Date 05/05/17 Vancomycin HCl (Vancomycin 1gm) 1 gm in 250 mls @ 167 mls/hr IVPB STAT STA PRN Reason: Protocol Stop: 05/05/17 10:59 Last Admin: 05/05/17 11:15 Dose: 167 mls/hr eMAR Start Stop Document 05/05/17 11:15 TW (Rec: 05/05/17 11:15 TW [id number]) Intravenous Solution Start Date 05/05/17 Start Time 11:15 End Date 05/05/17 End time 12:45 Total Infusion Time 90 Lactated Ringer's (Lactated Ringer's) 1,000 mls @ 75 mls/hr IV .[id number] OLMAN Stop: 05/05/17 18:01 Last Admin: 05/05/17 17:17 Dose: Not Given Non-Admin Reason: Patient in OR/Vascular Morphine Sulfate (Morphine) 4 mg IVP STAT STA Stop: 05/04/17 13:21 Last Admin: 05/04/17 13:39 Dose: 4 mg MAR Pain Assessment Document 05/04/17 13:39 SRE (Rec: 05/04/17 13:40 SRE [id number]) Pain Reassessment Is this a pain reassessment? Yes Sleep Is patient sleeping during reassessment? No Presence of Pain Presence of Pain Yes Pain Scale Used Pain Scale Used Numeric Location Pain Location Body Site Abdomen Description Description Constant IVP Administration Document 05/04/17 13:39 SRE (Rec: 05/04/17 13:40 SRE [id number]) Charges for Administration # of IVP Administrations 1 Re-Assess: MAR Pain Assessment Document 05/04/17 14:39 SRE (Rec: 05/04/17 17:11 SRE [id number]) Pain Reassessment Is this a pain reassessment? Yes Sleep Is patient sleeping during reassessment? Yes Pain Scale Used Pain Scale Used Numeric Location Pain Location Body Site Abdomen Morphine Sulfate (Morphine) 4 mg IVP Q4H PRN PRN Reason: Pain, severe (8-10) Last Admin: 05/05/17 09:04 Dose: 4 mg MAR Pain Assessment Document 05/05/17 09:04 TW (Rec: 05/05/17 09:04 TW [id number]) Pain Reassessment Is this a pain reassessment? No Presence of Pain Presence of Pain Yes Pain Scale Used Pain Scale Used Numeric Location Pain Location Body Site Abdomen Description Description Constant Intensity of Pain at present 7 IVP Administration Document 05/05/17 09:04 TW (Rec: 05/05/17 09:04 TW [id number]) Charges for Administration # of IVP Administrations 1 Morphine Sulfate (Morphine) 4 mg IVP STAT STA Stop: 05/04/17 17:09 Last Admin: 05/04/17 17:20 Dose: 4 mg MAR Pain Assessment Document 05/04/17 17:20 SRE (Rec: 05/04/17 17:20 SRE [id number]) Pain Reassessment Is this a pain reassessment? Yes Sleep Is patient sleeping during reassessment? No Presence of Pain Presence of Pain Yes Pain Scale Used Pain Scale Used Numeric Location Pain Location Body Site Abdomen Description Description Intermittent IVP Administration Document 05/04/17 17:20 SRE (Rec: 05/04/17 17:20 SRE [id number]) Charges for Administration # of IVP Administrations 1 Nicotine (Nicoderm Cq) 1 patch TD STAT STA Stop: 05/04/17 17:09 Last Admin: 05/04/17 17:20 Dose: 1 patch MAR Transdermal Patch Site Document 05/04/17 17:20 SRE (Rec: 05/04/17 17:21 SRE [id number]) Transdermal Patch Site Transdermal Patch Site Right Outer Upper Arm Ondansetron HCl (Zofran Inj) 4 mg IVP STAT STA Stop: 05/04/17 13:21 Last Admin: 05/04/17 13:39 Dose: 4 mg IVP Administration Document 05/04/17 13:39 SRE (Rec: 05/04/17 13:39 SRE [id number]) Charges for Administration # of IVP Administrations 1 Pneumococcal Polyvalent Vaccine (Pneumovax 23 Vaccine) 0.5 ml IM .ONCE ONE Stop: 05/04/17 22:34 - Scribe Statement The provider has reviewed the documentation as recorded by the Albino Mcelroy Provider Scribe Attestation: All medical record entries made by the Scribe were at my direction and personally dictated by me. I have reviewed the chart and agree that the record accurately reflects my personal performance of the history, physical exam, medical decision making, and the department course for this patient. I have also personally directed, reviewed, and agree with the discharge instructions and disposition. Disposition/Present on Arrival - Present on Arrival Any Indicators Present on Arrival: No History of DVT/PE: No History of Uncontrolled Diabetes: No Urinary Catheter: No History of Decub. Ulcer: No History Surgical Site Infection Following: None - Disposition Have Diagnosis and Disposition been Completed?: Yes Diagnosis: Cholecystitis Disposition: HOSPITALIZED Disposition Time: 15:26 Patient Plan: Admission Condition: GUARDED
[2017-05-04 13:48] LABS: BASO # 0.02 K/mm3 (0.0-2.0); BASO % 0.1 % (0.0-3.0); EOS % 0.1 % (1.5-5.0); GRAN # 18.12 (1.4-6.5); HEMATOCRIT 42.8 % (42.0-52.0); LYMPH % 4.8 % (22.0-35.0); MEAN CELL VOLUME 88.1 fl (80.0-105.0); MEAN CORPUSCULAR HEMOGLOBIN 32.1 pg (25.0-35.0); MEAN CORPUSCULAR HGB CONC 36.4 g/dl (31.0-37.0); MEAN PLATELET VOLUME 10.8 fl (7.0-11.0); MONO # 0.8 (0.1-0.6); PLATELET COUNT 188 10^3/uL (120.0-450.0); RED CELL DISTRIBUTION WIDTH 13.5 % (11.5-14.5); WHITE BLOOD COUNT 19.9 10^3/ul (4.5-11.0)
[2017-05-04 13:59] LABS: ALB/GLOB RATIO 1.5 (1.1-1.8); ALKALINE PHOSPHATASE 78 U/L (38-126); ALT/SGPT 100 U/L (7-56); AST/SGOT 80 U/L (17-59); BILIRUBIN,TOTAL 1.1 mg/dL (0.2-1.3); BLOOD UREA NITROGEN 11 mg/dL (7-21); CALCIUM 9.3 mg/dL (8.4-10.5); CARBON DIOXIDE 26 mmol/L (21-33); CHLORIDE 99 mmol/L (98-107); GFR AFRICAN-AMERICAN > 60; GLUCOSE,RANDOM 202 mg/dL (70-110); LIPASE 70 U/L (23-300); POTASSIUM 3.8 mmol/L (3.6-5.0); SODIUM 139 mmol/L (132-148); TOTAL PROTEIN 7.6 g/dL (5.8-8.3)
[2017-05-04 14:00] LABS: INR 1.15 (0.93-1.08); PARTIAL THROMBOPLASTIN TIME 28.5 Seconds (23.7-30.8)
[2017-05-04 14:20] LABS: NEUTROPHIL 95 % (50.0-70.0); PLATELET ESTIMATE NORMAL (NORMAL)
[2017-05-04] MEDS ORDERED: Piperacill/Tazo 4.5gm in NS 4.5 GM/100 ML BAG IVPB STA (14:34)
[2017-05-04 15:12] LABS: VENOUS BLOOD GAS BASE EXCESS -0.4 mmol/L (0.0-2.0); VENOUS BLOOD PH 7.38 (7.32-7.43)
--- NOTE | 2017-05-04 15:19 | US ---
HISTORY: RUQ abd pain r/o Choleycytitis COMPARISON: None. TECHNIQUE: Sonographic evaluation of the abdomen. FINDINGS: LIVER: Measures 19.4 x 18.6 cm - -hepatomegaly. . Diffuse increased echogenicity of the liver parenchyma. No mass. No intrahepatic bile duct dilatation. GALLBLADDER: Distended with multiple tiny non shadowing gallstones. And/or sludge balls. Gallbladder wall tiny Rolotansky-Aschoff sinuses - consistent with tiny gallbladder wall diverticuli. These may be associated with gallbladder adenomyomatosis and can be associated with cholecystitis. Asymmetrical gallbladder wall trace edema/trace thickening possible. Based on these images the gallbladder wall thickness appears slightly exaggerated at 4.2 mm. Technologist has referenceda positive sonographic Lyons sign . Patient is apparently also on morphine now COMMON BILE DUCT: Measures 5.7 mm. No stones. No dilatation. PANCREAS: Unremarkable as visualized. No mass. No ductal dilatation. RIGHT KIDNEY: Measures 10.1 x 5.2 x 6.7cm. Normal echogenicity. No calculus, solid mass, or hydronephrosis. . An anterior midpole cortical cyst measuring up to 1.5 cm is noted LEFT KIDNEY: Measures 10.7 x 7.5 x 5.8cm. Normal echogenicity. No calculus, s mass, or hydronephrosis. SPLEEN: Normal in size and contour. No mass. AORTA: No aneurysmal dilatation. IVC: Unremarkable. OTHER FINDINGS: None. IMPRESSION: Distended gallbladder withgallbladder wall tiny Rolotansky-Aschoff sinuses - tiny gallbladder wall diverticuli. Known associations with gallbladder adenomyomatosis systemic can be associated with cholecystitis. Asymmetrical gallbladder wall trace edema/trace thickening possible. Based on these images the gallbladder wall thickness appears slightly exaggerated at 4.2 mm. Technologist has referenceda positive sonographic Lyons sign . Continued close follow-up recommended Non shadowing gallstones versus coalescent sludge balls . No dilated ducts Hepatomegaly with diffuse increased echogenicity- hepatic steatosis most likely. Right renal cyst 1.5 cm. No hydronephrosis
[2017-05-04] MEDS ORDERED: Gadodiamide 287 MG/ML VIAL (20ML) IV ONE (16:13)
--- NOTE | 2017-05-04 16:14 | CP.PCM.CON ---
History of Present Illness - History of Present Illness History of Present Illness: 66M with a PMHx of Atrial Fibrillation, HTN, Rheumatoid Arthritis, Hypercholesterolemia, COPD cholelithiasis, pancreatitis. Patient presented to the ED w/ complaints of RUQ abdominal pain that woke him up at 2 am this morning. He describes this pain as colicky in nature and associated with night sweats, anorexia, nausea and non-bloody, non-bilious vomiting x 3. Denies any fevers or chills, chest pain, shortness of breathing and changes in bowel habits.Patient initially presented to the ED 04/04/17 w/ similar symptoms. 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 Patient was advised to follow up with GI as an outpatient for EUS and FNA. However, patient states he did not get a chance to follow up with GI to set up an appointment for EUS and FNA. PMH: Cholelithiasis, Pancreatitis, Rheumatoid Arthritis, Atrial Fibrillation, HTN, Hypercholesterolemia, COPD PSH: Cardiac stent x 15, Left ACL repair, Left 4th toe amputation Allergies: NKDA Meds: Plavix, ASA, Actemra, Tramadol Review of Systems - Constitutional Constitutional: As Per HPI, Night Sweats. absent: Fever, Headache - Cardiovascular Cardiovascular: absent: Chest Pain - Gastrointestinal Gastrointestinal: Nausea, Vomiting. absent: Change in Bowel Habits, Constipation, Diarrhea - Musculoskeletal Musculoskeletal: Arthralgias Past Patient History - Infectious Disease Hx of Infectious Diseases: None - Tetanus Immunizations Tetanus Immunization: Unknown - Past Social History Smoking Status: Heavy Smoker > 10 Cigarettes Daily - CARDIAC Hx Cardiac Disorders: Yes Hx Atrial Fibrillation: Yes Hx Hypertension: Yes Hx Pacemaker: No - PULMONARY Hx Respiratory Disorders: Yes Hx Bronchitis: Yes Hx Chronic Obstructive Pulmonary Disease (COPD): Yes Hx Pneumonia: Yes - NEUROLOGICAL Hx Paralysis: No - HEENT Hx HEENT Problems: No - RENAL Hx Chronic Kidney Disease: No - ENDOCRINE/METABOLIC Hx Endocrine Disorders: No - HEMATOLOGICAL/ONCOLOGICAL Hx Blood Transfusions: No - MUSCULOSKELETAL/RHEUMATOLOGICAL Hx Musculoskeletal Disorders: Yes (RA) Hx Arthritis: Yes Hx Rheumatoid Arthritis: Yes - GASTROINTESTINAL Hx Gastrointestinal Disorders: Yes Hx Pancreatitis: Yes Other/Comment: gallstones - GENITOURINARY/GYNECOLOGICAL Hx Genitourinary Disorders: No - PSYCHIATRIC Hx Psychophysiologic Disorder: Yes Hx Anxiety: Yes Hx Emotional Abuse: No Hx Physical Abuse: No Hx Substance Use: No - SURGICAL HISTORY Other/Comment: 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 SURAJ. R foot surgery. R hand surgery - ANESTHESIA Hx Anesthesia: Yes Hx Anesthesia Reactions: No Hx Malignant Hyperthermia: No Meds Allergies/Adverse Reactions: Allergies Allergy/AdvReac Type Severity Reaction Status Date / Time No Known Allergies Allergy Verified 05/04/17 13:00 - Medications Medications: Current Medications Sodium Chloride (Sodium Chloride 0.9%) 1,000 mls @ 100 mls/hr IV .Q10H STA Stop: 05/04/17 23:19 Last Admin: 05/04/17 13:41 Dose: 100 mls/hr Physical Exam - Constitutional Appears: Non-toxic, No Acute Distress - Head Exam Head Exam: ATRAUMATIC, NORMOCEPHALIC - Eye Exam Eye Exam: EOMI. absent: Conjunctival injection - Respiratory Exam Respiratory Exam: NORMAL BREATHING PATTERN. absent: Accessory Muscle Use - Cardiovascular Exam Cardiovascular Exam: +S1, +S2 - GI/Abdominal Exam GI & Abdominal Exam: Soft, Tenderness. absent: Distended, Firm, Guarding, Rigid Additional comments: Soft, ND, TTP of RUQ. Positive Lyons's Sign. No rebound tenderness or rigidity. - Neurological Exam Neurological exam: Alert, Oriented x3 - Psychiatric Exam Psychiatric exam: Normal Affect, Normal Mood - Skin Skin Exam: Dry, Normal Color, Warm Results - Vital Signs Recent Vital Signs: Last Vital Signs Temp 97.5 F L 05/04/17 13:05 Pulse 79 05/04/17 15:01 Resp 18 05/04/17 15:01 BP 158/80 H 05/04/17 15:01 Pulse Ox 96 05/04/17 15:01 - Labs Result Diagrams: 05/05/17 06:00 05/04/17 18:20 Assessment & Plan - Assessment and Plan (Free Text) Assessment: 66M with hx of cholelithiasis and pancreatitis presents with acute cholecystitis. Plan: -NPO at [place] -IVF -Abx - F/u MRCP - F/u labs -Awaiting GI recommendations. -No acute surgical intervention at this present time. Will await GI recs on EUS and FNA. - Await cardiac clearance - Pt reports he is on Actemra for RA requiring 5 weeks off medication prior to any surgery, his last dose was 3 weeks ago. -Patient will be taken for surgery for laparoscopic cholecystectomy, his probability of developing infection may be increased due to Actemra, Dr. Sheriff aware, agrees with surgical intervention. Further recs from Dr. Gerald Mosher PGY-2
--- NOTE | 2017-05-04 16:30 | CP.PCM.HP ---
History of Present Illness - History of Present Illness History of Present Illness: Patient is a 66 year old male with past medical hx of HTN, afib with hx of SURAJ/ cardioversion, rheumatoid arthritis, COPD, hypercholesterolemia, recently admitted for pancreatitis presents to the ED for epigastric pain that started this morning. Patient states that epigastric pain radiates to the back, constant in nature and rated it 8/10. Patient took tramadol at home with no relief. Pain is associated with nausea and 3 episodes of vomiting (brownish- yellow). Patient was recently admitted for gallstone pancreatitis. Admits to fevers and chills. Denies headaches, dizziness, cp, palpitations, sob, urinary symptoms, diarrhea, constipation. Patient states that he started IV infusion treatment (Actemra) for rheumatoid arthritis, was advised to complete 5 weeks of treatment before removing gallbladder, reports that currently 3 weeks in. Allergies: NKDA Medications: Please see MAR for medication list Medical Hx: HTN, RA, COPD, Hypercholesterolemia, pancreatitis, Hx of multiple cardiac stents (15), last one placed [address] Arias Surgical Hx: Toe amputation, ACL repair, wrist surgery for RA Social Hx: smokes cigars for past 50 years, social drinker, denies drug use; , at the bedside Family Hx: Mother - heart disease; Father - heart disease Present on Admission - Present on Admission Any Indicators Present on Admission: No Review of Systems - Constitutional Constitutional: Chills, Fever - EENT Eyes: absent: Blurred Vision Ears: absent: Decreased Hearing, Dizziness Nose/Mouth/Throat: absent: Nasal Congestion - Cardiovascular Cardiovascular: absent: Chest Pain, Dyspnea, Palpitations - Respiratory Respiratory: absent: Cough, Dyspnea, Wheezing - Gastrointestinal Gastrointestinal: Abdominal Pain, Nausea, Vomiting. absent: Bloating, Constipation, Diarrhea - Genitourinary Genitourinary: absent: Difficulty Urinating, Dysuria, Urinary Frequency - Musculoskeletal Musculoskeletal: absent: Abnormal Gait, Numbness, Tingling - Neurological Neurological: absent: Dizziness, Numbness, Headaches, Tingling, Weakness - Psychiatric Psychiatric: absent: Anxiety, Depression Past Patient History - Infectious Disease Hx of Infectious Diseases: None - Tetanus Immunizations Tetanus Immunization: Unknown - Past Social History Smoking Status: Heavy Smoker > 10 Cigarettes Daily - CARDIAC Hx Cardiac Disorders: Yes Hx Atrial Fibrillation: Yes Hx Hypertension: Yes Hx Pacemaker: No - PULMONARY Hx Respiratory Disorders: Yes Hx Bronchitis: Yes Hx Chronic Obstructive Pulmonary Disease (COPD): Yes Hx Pneumonia: Yes - NEUROLOGICAL Hx Paralysis: No - HEENT Hx HEENT Problems: No - RENAL Hx Chronic Kidney Disease: No - ENDOCRINE/METABOLIC Hx Endocrine Disorders: No - HEMATOLOGICAL/ONCOLOGICAL Hx Blood Transfusions: No - MUSCULOSKELETAL/RHEUMATOLOGICAL Hx Musculoskeletal Disorders: Yes (RA) Hx Arthritis: Yes Hx Rheumatoid Arthritis: Yes - GASTROINTESTINAL Hx Gastrointestinal Disorders: Yes Hx Pancreatitis: Yes Other/Comment: gallstones - GENITOURINARY/GYNECOLOGICAL Hx Genitourinary Disorders: No - PSYCHIATRIC Hx Psychophysiologic Disorder: Yes Hx Anxiety: Yes Hx Emotional Abuse: No Hx Physical Abuse: No Hx Substance Use: No - SURGICAL HISTORY Other/Comment: 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 SURAJ. R foot surgery. R hand surgery - ANESTHESIA Hx Anesthesia: Yes Hx Anesthesia Reactions: No Hx Malignant Hyperthermia: No Meds Allergies/Adverse Reactions: Allergies Allergy/AdvReac Type Severity Reaction Status Date / Time No Known Allergies Allergy Verified 05/04/17 13:00 Physical Exam - Constitutional Appears: Non-toxic, No Acute Distress - Head Exam Head Exam: ATRAUMATIC, NORMAL INSPECTION - Eye Exam Eye Exam: EOMI, Normal appearance Pupil Exam: NORMAL ACCOMODATION - ENT Exam ENT Exam: Mucous Membranes Moist - Neck Exam Neck exam: Positive for: Full Rom - Respiratory Exam Respiratory Exam: Clear to Auscultation Bilateral, NORMAL BREATHING PATTERN. absent: Rales, Rhonchi, Wheezes - Cardiovascular Exam Cardiovascular Exam: REGULAR RHYTHM, +S1, +S2 - GI/Abdominal Exam GI & Abdominal Exam: Soft, Tenderness. absent: Distended, Firm Additional comments: + [place] - Extremities Exam Extremities exam: Positive for: normal inspection, pedal pulses present. Negative for: calf tenderness, tenderness - Back Exam Back exam: NORMAL INSPECTION - Neurological Exam Neurological exam: Alert, CN II-XII Intact, Oriented x3 - Psychiatric Exam Psychiatric exam: Normal Affect, Normal Mood - Skin Skin Exam: Dry, Normal Color, Warm Results - Vital Signs Recent Vital Signs: Last Vital Signs Temp 97.5 F L 05/04/17 13:05 Pulse 79 05/04/17 15:01 Resp 18 05/04/17 15:01 BP 158/80 H 05/04/17 15:01 Pulse Ox 96 05/04/17 15:01 - Labs Result Diagrams: 05/04/17 13:35 05/04/17 13:35 Labs: Laboratory Results - last 24 hr 05/04/17 05/04/17 05/04/17 13:35 13:35 13:35 WBC 19.9 H D RBC 4.86 Hgb 15.6 Hct 42.8 MCV 88.1 MCH 32.1 MCHC 36.4 RDW 13.5 Plt Count 188 MPV 10.8 Gran % 91.0 H Lymph % (Auto) 4.8 L [place] % (Auto) 4.0 Eos % (Auto) 0.1 L Baso % (Auto) 0.1 Gran # 18.12 H Lymph # 1.0 L [place] # 0.8 H Eos # 0.0 Baso # 0.02 Neutrophils % (Manual) 95 H Lymphocytes % (Manual) 3 L Monocytes % (Manual) 2 Platelet Evaluation Normal PT 12.4 H INR 1.15 H APTT 28.5 pO2 VBG pH VBG pCO2 VBG HCO3 VBG Total CO2 VBG O2 Sat (Calc) VBG Base Excess VBG Potassium Glucose Lactate FiO2 Sodium 139 Potassium 3.8 Chloride 99 Carbon Dioxide 26 Anion Gap 18 BUN 11 Creatinine 0.6 Est GFR ( Amer) > 60 Est GFR (Non-Af Amer) > 60 Random Glucose 202 H Calcium 9.3 Total Bilirubin 1.1 AST 80 H ALT 100 H Alkaline Phosphatase 78 Total Protein 7.6 Albumin 4.6 Globulin 3.0 Albumin/Globulin Ratio 1.5 Lipase 70 Venous Blood Potassium Blood Type Antibody Screen BBK History Checked 05/04/17 05/04/17 13:35 15:01 WBC RBC Hgb Hct MCV MCH MCHC RDW Plt Count MPV Gran % Lymph % (Auto) [place] % (Auto) Eos % (Auto) Baso % (Auto) Gran # Lymph # [place] # Eos # Baso # Neutrophils % (Manual) Lymphocytes % (Manual) Monocytes % (Manual) Platelet Evaluation PT INR APTT pO2 50 VBG pH 7.38 VBG pCO2 42.0 VBG HCO3 24.8 VBG Total CO2 26.1 VBG O2 Sat (Calc) 93.0 H VBG Base Excess -0.4 L VBG Potassium 3.4 L Glucose 191 H Lactate 2.4 H FiO2 21.0 Sodium 138.0 Potassium Chloride 103.0 Carbon Dioxide Anion Gap BUN Creatinine Est GFR ( Amer) Est GFR (Non-Af Amer) Random Glucose Calcium Total Bilirubin AST ALT Alkaline Phosphatase Total Protein Albumin Globulin Albumin/Globulin Ratio Lipase Venous Blood Potassium 3.4 L Blood Type A POSITIVE Antibody Screen Negative BBK History Checked Patient has bt Assessment & Plan - Assessment and Plan (Free Text) Assessment: 66 year old male with past medical history of HTN, rheumatoid arthritis, COPD, hypercholesterolemia, recently admitted for pancreatitis presents to the ED for epigastric pain that started this morning. Abdominal US showed distended gallbladder, multiple gallstones/sludge balls, thickened gallbladder wall, gallbladder diverticuli, no CBD dilation. Plan: 1. Acute Cholecystitis -VSS, afebrile -Leukocytosis WBC 19.9 on admission -Abx: Rocephin 1 gm daily, Flagyl 500mg Q8H -Pain: control Morphine 4mg Q4H prn -Zofran prn nausea -MRCP ordered, f/u results -Diet NPO -IVF hydration -CXR, Blood cx, urine cx, UA ordered -Will hold ASA and plavix at this time -Cardiology consulted for cardiac risk modification for surgery -General surgery on consult, f/u recommendations -GI on consult, f/u recommendations 2. Hypertension -Continue Norvasc and Atenolol -Will hold Lasix 3. Transaminitis -Avoid hepatotoxic agents -Holding crestor -Continue to monitor 4. Hx of Afib; Hx of SURAJ/cardioversion -EKG on admission - NSR with LAFB -Last echo 01/2017 showing EF of 60% -Continue digoxin -Cardiology on consult 5. Hx of Rheumatoid arthritis -On Actmera IV infusion therapy currently -Will hold methotrexate at this time -Continue folic acid 6. Hx of CAD, s/p 15 cardiac stents -Will hold ASA and Plavix -Continue Imdur -Cardiology consulted, f/u recommendations GI/DVT ppx -Pepcid 20mg IV daily -SCDs
[2017-05-04 18:41] LABS: VENOUS BLOOD GAS BASE EXCESS 1.4 mmol/L (0.0-2.0); VENOUS BLOOD PH 7.38 (7.32-7.43)
[2017-05-04 18:51] LABS: ALB/GLOB RATIO 1.4 (1.1-1.8); ALKALINE PHOSPHATASE 68 U/L (38-126); ALT/SGPT 93 U/L (7-56); AST/SGOT 74 U/L (17-59); BILIRUBIN,TOTAL 1.1 mg/dL (0.2-1.3); BLOOD UREA NITROGEN 10 mg/dL (7-21); CALCIUM 9.2 mg/dL (8.4-10.5); CARBON DIOXIDE 25 mmol/L (21-33); CHLORIDE 101 mmol/L (98-107); GFR AFRICAN-AMERICAN > 60; GLUCOSE,RANDOM 155 mg/dL (70-110); MAGNESIUM 1.4 mg/dL (1.7-2.2); PHOSPHOROUS 3.1 mg/dL (2.5-4.5); POTASSIUM 4.2 mmol/L (3.6-5.0); SODIUM 139 mmol/L (132-148); TOTAL PROTEIN 7.7 g/dL (5.8-8.3)
--- NOTE | 2017-05-04 20:29 | MRI ---
EXAM: MR Abdomen Without and With Intravenous Contrast, MRCP Protocol EXAM DATE/TIME: 05/04/2017 3:33 PM CLINICAL HISTORY: 66 years old, male; Pain; Abdominal pain; Acute; Patient HX: ? Gall stone; Additional info: Attention liver pancreas with mrcp R/O cbd lesion TECHNIQUE: Multiplanar magnetic resonance images of the abdomen without and with intravenous contrast using MRCP protocol. CONTRAST: 15 mL of omniscan administered intravenously. COMPARISON: Prior MRCP of 04/05/2017 FINDINGS: BILE DUCTS: Common bile duct appears nondilated. No common bile duct stones are visualized. GALLBLADDER: Appears mildly dilated. Multiple tiny gallstones seen in the gallbladder fundus. There is a small amount of pericholecystic fluid, a new finding. LIVER: No acute abnormality of the liver identified. No focal lesions are seen. PANCREAS: Stable appearance of a tiny, round 5 mm fluid signal intensity/cystic lesion in the pancreatic body, with well-defined margins. Recommend a single follow-up abdominal MRI in 1 year. A limited T2-weighted MRI can be performed for routine follow-up. No CT evidence of acute pancreatitis. No evidence of significant pancreatic ductal dilatation. SPLEEN: No acute abnormality of the spleen identified. KIDNEYS AND URETERS: Multiple fluid signal intensity lesions seen in the kidneys bilaterally, most small in size, most likely representing multiple, bilateral renal cysts. Also suspect small peripelvic cysts in the left kidney. STOMACH AND BOWEL: No evidence of bowel obstruction. INTRAPERITONEAL SPACE: Small amount of free fluid in the right abdomen. This abuts the liver. IMPRESSION: - Gallstones, associated with a small amount of pericholecystic fluid. - Small amount of perihepatic free fluid. - Otherwise, no evidence of significant acute process. No evidence of significant biliary ductal dilatation. - Stable appearance of a 5 mm cystic lesion in the pancreas. See recommendations above. - See above for remaining findings.
[2017-05-04] MEDS: metroNIDAZOLE IV 500 mg/100 ml 500 MG/100 ML BAG IVPB SCH (21:15)
[2017-05-04] MEDS: Morphine 4 mg/ml ISec IVP PRN (21:19)
[2017-05-04] MEDS ORDERED: Pneumococcal 23-Valent Vaccine IM ONE (22:33)
[2017-05-05] MEDS: Morphine 4 mg/ml ISec IVP PRN ×2 (03:00→09:04)
[2017-05-05 03:35] LABS: URINE BILIRUBIN NEGATIVE (NEGATIVE); URINE BLOOD NEGATIVE (NEGATIVE); URINE GLUCOSE (UA) NEGATIVE (NEGATIVE); URINE KETONE TRACE mg/dL (NEGATIVE); URINE LEUKOCYTE ESTERASE NEGATIVE Leu/uL (NEGATIVE); URINE PROTEIN TRACE mg/dL (<30 mg/dL); URINE UROBILINOGEN 0.2 E.U./dL (<1 E.U./dL)
[2017-05-05 03:56] LABS: URINE COLOR YELLOW (YELLOW)
[2017-05-05 03:57] LABS: URINE APPEARANCE CLEAR (CLEAR)
[2017-05-05 04:14] LABS: URINE EPITHELIAL CELLS 0 - 2 /hpf (0-5); URINE RBC 0 - 2 /hpf (0-2); URINE WBC 0 - 2 /hpf (0-6)
[2017-05-05] MEDS: metroNIDAZOLE IV 500 mg/100 ml 500 MG/100 ML BAG IVPB SCH (05:33)
[2017-05-05 06:22] LABS: BASO # 0.01 K/mm3 (0.0-2.0); BASO % 0.1 % (0.0-3.0); EOS % 0.1 % (1.5-5.0); GRAN # 18.51 (1.4-6.5); GRAN % 94.2 % (50.0-68.0); LYMPH # 0.7 (1.2-3.4); LYMPH % 3.6 % (22.0-35.0); MEAN CELL VOLUME 89.7 fl (80.0-105.0); MEAN CORPUSCULAR HEMOGLOBIN 31.5 pg (25.0-35.0); MEAN CORPUSCULAR HGB CONC 35.1 g/dl (31.0-37.0); MEAN PLATELET VOLUME 10.7 fl (7.0-11.0); MONO # 0.4 (0.1-0.6); RED CELL DISTRIBUTION WIDTH 14.2 % (11.5-14.5)
[2017-05-05] MEDS ORDERED: Magnesium Sulfate 2 GM in Sodium Chloride 0.9% 100 ML IVPB ONE (07:00)
[2017-05-05 07:09] LABS: WHITE BLOOD COUNT 19.6 10^3/ul (4.5-11.0)
--- NOTE | 2017-05-05 07:34 | RAD ---
HISTORY: Leukocytosis COMPARISON: Portable chest 01/20/2015. TECHNIQUE: Chest PA and lateral FINDINGS: LUNGS: The reticular markings appears somewhat accentuated. This may reflect chronic underlying interstitial process of acute component is not excluded. No alveolar process identified throughout. PLEURA: No significant pleural effusion identified. No pneumothorax apparent. CARDIOVASCULAR: Normal. OSSEOUS STRUCTURES: No significant abnormalities. VISUALIZED UPPER ABDOMEN: Normal. OTHER FINDINGS: None. IMPRESSION: Questionable chronic interstitial pulmonary changes though underlying acute component is not excluded. No airspace disease appreciated. No pleural effusion bilaterally. Cardiac size appears stable.
--- NOTE | 2017-05-05 08:25 | CARD ---
APPROVED REPORT EKG Measurement Heart [id number] PA [id number] [id number] <Conclusion> Normal sinus rhythm Incomplete right bundle branch block Left anterior fascicular block No change
[2017-05-05] MEDS ORDERED: Vancomycin 1gm in NS 250ml 1 GM/250 ML BAG IVPB STA (09:30)
[2017-05-05] MEDS ORDERED: cefTRIAXone 1 gm 1 GM/100 ML BAG IVPB SCH (10:00)
[2017-05-05] MEDS: Meropenem 1g/NS 100mL IVPB 1 GM/100 ML PIGGYBACK IVPB SCH ×3 (10:22→21:19)
[2017-05-05] MEDS ORDERED: Piperacill/Tazo 4.5gm in NS 4.5 GM/100 ML BAG IVPB STA (11:17)
--- NOTE | 2017-05-05 11:40 | CP.PCM.PN ---
Subjective - Date & Time of Evaluation Date of Evaluation: 05/05/17 Time of Evaluation: 07:00 - Subjective Subjective: Hospitalist Service Progress Note: Patient seen and examined at bedside. Per nursing no acute events overnight. Patient is having more epigatsric/RUQ abdominal pain. Currently NPO for Lap Rachana today. Awaiting cardiac evaluation. Denies fevers, chills, sp, palpitations, cp, sob, urinary symptoms. Objective - Vital Signs/Intake and Output Vital Signs (last 24 hours): Temp Pulse Resp BP Pulse Ox 98 F 100 H 20 143/76 94 L 05/05/17 08:26 05/05/17 09:05 05/05/17 08:26 05/05/17 09:05 05/05/17 08:26 Intake and Output: 05/05/17 05/05/17 06:59 18:59 Intake Total 1200 Balance 1200 - Medications Medications: Current Medications Alprazolam (Xanax) 0.25 mg PO DAILY PRN; Protocol PRN Reason: Anxiety Stop: 05/11/17 16:31 Amlodipine Besylate (Norvasc) 10 mg PO DAILY [facility] Last Admin: 05/05/17 09:04 Dose: 10 mg Atenolol (Tenormin) 25 mg PO DAILY [facility] Last Admin: 05/05/17 09:05 Dose: 25 mg Digoxin (Lanoxin) 0.125 mg PO 1400 [facility] Famotidine (Pepcid) 20 mg IVP DAILY [facility] Last Admin: 05/05/17 09:05 Dose: 20 mg Meropenem 1g/NS 100mL IVPB (Meropenem 1g/Ns 100ml Ivpb) 1 gm in 100 mls @ 100 mls/hr IVPB Q8 [facility] PRN Reason: Protocol Stop: 05/12/17 09:31 Last Admin: 05/05/17 10:22 Dose: 100 mls/hr Isosorbide Mononitrate (Imdur Er) 30 mg PO DAILY [facility] Last Admin: 05/05/17 09:05 Dose: 30 mg Morphine Sulfate (Morphine) 4 mg IVP Q4H PRN PRN Reason: Pain, severe (8-10) Last Admin: 05/05/17 09:04 Dose: 4 mg Ondansetron HCl (Zofran Inj) 4 mg IVP Q4H PRN PRN Reason: Nausea/Vomiting - Labs Labs: 05/05/17 06:00 05/04/17 18:20 PT 12.4 Seconds (9.9-11.8) H 05/04/17 13:35 INR 1.15 (0.93-1.08) H 05/04/17 13:35 APTT 28.5 Seconds (23.7-30.8) 05/04/17 13:35 - Constitutional Appears: Well, Non-toxic - Head Exam Head Exam: ATRAUMATIC, NORMAL INSPECTION - Eye Exam Eye Exam: EOMI, Normal appearance Pupil Exam: NORMAL ACCOMODATION - ENT Exam ENT Exam: Mucous Membranes Moist - Neck Exam Neck Exam: Full ROM - Respiratory Exam Respiratory Exam: Clear to Ausculation Bilateral, NORMAL BREATHING PATTERN. absent: Rales, Rhonchi, Wheezes - Cardiovascular Exam Cardiovascular Exam: REGULAR RHYTHM, +S1, +S2 - GI/Abdominal Exam GI & Abdominal Exam: Guarding, Soft, Tenderness. absent: Rigid Additional comments: +Lyons's +RUQ and epigastric tenderness - Extremities Exam Extremities Exam: Full ROM, Normal Inspection. absent: Calf Tenderness - Back Exam Back Exam: NORMAL INSPECTION - Neurological Exam Neurological Exam: Alert, Awake, Normal Gait, Oriented x3 - Psychiatric Exam Psychiatric exam: Normal Affect, Normal Mood - Skin Skin Exam: Normal Color, Warm Assessment and Plan - Assessment and Plan (Free Text) Assessment: 66 year old male with past medical history of HTN, rheumatoid arthritis, COPD, hypercholesterolemia, recently admitted for pancreatitis presents to the ED for epigastric pain that started this morning. Abdominal US showed distended gallbladder, multiple gallstones/sludge balls, thickened gallbladder wall, gallbladder diverticuli, no CBD dilation. Plan: 1. Acute Cholecystitis -VSS, afebrile -Leukocytosis WBC 19.9 -> 19.6 -Abx: Merrem -Pain: control Morphine 4mg Q4H prn -Zofran prn nausea -Diet NPO for lap cholecystectomy -IVF hydration: Lactated Ringers -F/U Blood cx, urine cx -Cardiology risk stratified the patient- moderate to high risk for surgery -ID on consult f/u recommendations -General surgery on consult, f/u recommendations -GI on consult, f/u recommendations 2. Hypertension -Continue Norvasc and Atenolol -Will hold Lasix 3. Transaminitis -Avoid hepatotoxic agents -Holding crestor -Continue to monitor 4. Hx of Afib; Hx of SURAJ/cardioversion -EKG on admission - NSR with LAFB -Last echo 01/2017 showing EF of 60% -Continue digoxin -Cardiology on consult 5. Hx of Rheumatoid arthritis -On Actmera IV infusion therapy currently -Will hold methotrexate at this time -Continue folic acid 6. Hx of CAD, s/p 15 cardiac stents -Will hold ASA and Plavix -Continue Imdur -Cardiology consulted, f/u recommendations GI/DVT ppx -Pepcid 20mg IV daily -SCDs
--- NOTE | 2017-05-05 13:21 | CP.PCM.PN ---
<Rakel Amaro - Last Filed: 05/05/17 13:21> Subjective - Date & Time of Evaluation Date of Evaluation: 05/05/17 Time of Evaluation: 09:40 - Subjective Subjective: S&E at bedside, abdominal pain still present, 02/14 , on admission, 10. No fever or chills. No N/V , sob or CP. No acute overnight events reported. NPO. Objective - Vital Signs/Intake and Output Vital Signs (last 24 hours): Temp Pulse Resp BP Pulse Ox 99.2 F 85 20 100/53 L 92 L 05/05/17 12:20 05/05/17 12:20 05/05/17 12:20 05/05/17 12:20 05/05/17 12:20 Intake and Output: 05/05/17 05/05/17 06:59 18:59 Intake Total 1200 Balance 1200 - Medications Medications: Current Medications Alprazolam (Xanax) 0.25 mg PO DAILY PRN; Protocol PRN Reason: Anxiety Stop: 05/11/17 16:31 Amlodipine Besylate (Norvasc) 10 mg PO DAILY [facility] Last Admin: 05/05/17 09:04 Dose: 10 mg Atenolol (Tenormin) 25 mg PO DAILY [facility] Last Admin: 05/05/17 09:05 Dose: 25 mg Digoxin (Lanoxin) 0.125 mg PO 1400 [facility] Famotidine (Pepcid) 20 mg IVP DAILY [facility] Last Admin: 05/05/17 09:05 Dose: 20 mg Meropenem 1g/NS 100mL IVPB (Meropenem 1g/Ns 100ml Ivpb) 1 gm in 100 mls @ 100 mls/hr IVPB Q8 [facility] PRN Reason: Protocol Stop: 05/12/17 09:31 Last Admin: 05/05/17 10:22 Dose: 100 mls/hr Isosorbide Mononitrate (Imdur Er) 30 mg PO DAILY [facility] Last Admin: 05/05/17 09:05 Dose: 30 mg Morphine Sulfate (Morphine) 4 mg IVP Q4H PRN PRN Reason: Pain, severe (8-10) Last Admin: 05/05/17 09:04 Dose: 4 mg Ondansetron HCl (Zofran Inj) 4 mg IVP Q4H PRN PRN Reason: Nausea/Vomiting - Labs Labs: 05/05/17 06:00 05/04/17 18:20 PT 12.4 Seconds (9.9-11.8) H 05/04/17 13:35 INR 1.15 (0.93-1.08) H 05/04/17 13:35 APTT 28.5 Seconds (23.7-30.8) 05/04/17 13:35 - Constitutional Appears: No Acute Distress - Eye Exam Eye Exam: Normal appearance. absent: Scleral icterus - ENT Exam ENT Exam: Mucous Membranes Moist - Neck Exam Neck Exam: Normal Inspection - Respiratory Exam Respiratory Exam: Clear to Ausculation Bilateral, NORMAL BREATHING PATTERN. absent: Respiratory Distress - Cardiovascular Exam Cardiovascular Exam: +S1, +S2 - GI/Abdominal Exam GI & Abdominal Exam: Soft, Tenderness (epiagstric/RUQ), Normal Bowel Sounds. absent: Guarding, Organomegaly, Rebound - Extremities Exam Extremities Exam: Normal Capillary Refill. absent: Pedal Edema - Neurological Exam Neurological Exam: Alert, Awake, Oriented x3 - Skin Skin Exam: Dry, Warm Assessment and Plan - Assessment and Plan (Free Text) Assessment: ASSESSMENT: Acute cholecytisits Cholelithiasis Stable 5mm Pancreatic cystic lesion Leukocytosis Elevated LFT CAD w/ multiple stents(15) RA on Actemia treatment COPD PLAN: nothing by mouth, continue IV for hydration Continue Pepcid IV antibiotics as per ID trend LFT DVT prophylaxsis Cardiology FU Detailed discussion with residential collections, Dr. Mosher. From GI point of view recommend cholecystectomy with IOC. MRCP was reviewed, stable appearance of 5 mm cystic lesion in the pancreas, noted to have cholelithiasis with positive pericholecystic fluid. CBD is not dilated and no CBD stones are noted.Pancreatic cyst stable, which can be followed up as outpatient, discuss with surgery resident Nomi recommend to discuss w/ patient's architectural engineer as patient is was receiving Actemia treatment. Spoke to medical team as well. Seen and discussed w/ Dr. Martino. <Evelin Martino V - Last Filed: 05/06/17 00:01> Objective - Vital Signs/Intake and Output Vital Signs (last 24 hours): Temp Pulse Resp BP Pulse Ox 98.1 F 69 18 106/56 L 95 05/05/17 17:36 05/05/17 17:36 05/05/17 17:36 05/05/17 17:36 05/05/17 17:36 Intake and Output: 05/05/17 05/06/17 18:59 06:59 Intake Total 0 240 Balance 0 240 - Medications Medications: Current Medications Acetaminophen (Tylenol 325mg Tab) 650 mg PO Q6H PRN PRN Reason: Fever >100.4 F Alprazolam (Xanax) 0.25 mg PO DAILY PRN; Protocol PRN Reason: Anxiety Stop: 05/11/17 16:31 Amlodipine Besylate (Norvasc) 10 mg PO DAILY [facility] Last Admin: 05/05/17 09:04 Dose: 10 mg Atenolol (Tenormin) 25 mg PO DAILY [facility] Last Admin: 05/05/17 09:05 Dose: 25 mg Digoxin (Lanoxin) 0.125 mg PO 1400 [facility] Last Admin: 05/05/17 14:42 Dose: Not Given Famotidine (Pepcid) 20 mg IVP DAILY [facility] Last Admin: 05/05/17 09:05 Dose: 20 mg Heparin Sodium (Porcine) (Heparin) 5,000 units SC Q12 [facility] PRN Reason: Protocol Hydromorphone HCl (Dilaudid) 0.5 mg IVP Q3H PRN PRN Reason: Pain, moderate (4-7) Last Admin: 05/05/17 22:42 Dose: 0.5 mg Meropenem 1g/NS 100mL IVPB (Meropenem 1g/Ns 100ml Ivpb) 1 gm in 100 mls @ 100 mls/hr IVPB Q8 [facility] PRN Reason: Protocol Stop: 05/12/17 09:31 Last Admin: 05/05/17 21:19 Dose: 100 mls/hr Isosorbide Mononitrate (Imdur Er) 30 mg PO DAILY [facility] Last Admin: 05/05/17 09:05 Dose: 30 mg Nicotine (Nicoderm Cq) 1 patch TD DAILY [facility] Last Admin: 05/05/17 18:31 Dose: 1 patch Ondansetron HCl (Zofran Inj) 4 mg IVP Q4H PRN PRN Reason: Nausea/Vomiting Ondansetron HCl (Zofran Inj) 4 mg IVP ONCE PRN PRN Reason: Nausea/Vomiting - Labs Labs: 05/05/17 06:00 05/04/17 18:20 PT 12.4 Seconds (9.9-11.8) H 05/04/17 13:35 INR 1.15 (0.93-1.08) H 05/04/17 13:35 APTT 28.5 Seconds (23.7-30.8) 05/04/17 13:35 Attending/Attestation - Attestation I have personally seen and examined this patient.: Yes I have fully participated in the care of the patient.: Yes I have reviewed all pertinent clinical information, including history, physical exam and plan: Yes
[2017-05-05] MEDS ORDERED: Midazolam 2 MG/2 ML VIAL ONE (13:34)
[2017-05-05] MEDS ORDERED: Propofol 10 mg/ml Inj (20 ML) ONE ×2 (13:34→16:03)
[2017-05-05] MEDS ORDERED: Succinylcholine 200 mg/10 ml Inj IV ONE (13:34)
[2017-05-05] MEDS ORDERED: Rocuronium 10 mg/ml (5 ml) ONE (13:34)
[2017-05-05] MEDS ORDERED: Bupivacaine 0.5% Inj(30mL) ONE (13:42)
[2017-05-05] MEDS ORDERED: Iohexol 240 (50 ml) ONE (13:42)
[2017-05-05] MEDS ORDERED: Desflurane Inhalation Anesthetic Liq (240 ml) ONE (14:40)
[2017-05-05] MEDS: Digoxin 125 mcg (0.125 mg) Tab PO SCH (14:42)
--- NOTE | 2017-05-05 15:09 | CP.PCM.CON ---
History of Present Illness - History of Present Illness History of Present Illness: 66 year old male with PMH of HTN, atrial fibrillation with history of cardioversion, rheumatoid arthritis, COPD, dyslipidemia, history of pancreatitis , S/P left ACL repair, CAD S/P PCI, S/P left toe amputation came in to [facility] complaining of sudden onset right upper quadrant pain, which was colicky in nature. He was also having night sweats and subjective fever and chills at the time. He was recently in [facility] about a month ago for the same symptoms and MRCP at the time was suspicious. On discharge, he was told to follow up for EUS and biopsy but was not able to. He had some nausea and an episode of vomiting this time, no headache or dizziness, no chest pain, no SOB, no cough or rhinorrhea, no dysphagia, no diarrhea, no dysuria. Infectious Diseases consult is requested to further evaluate and manage. Review of Systems - Review of Systems All systems: reviewed and no additional remarkable complaints except (as per HPI ) Past Patient History - Infectious Disease Hx of Infectious Diseases: None - Tetanus Immunizations Tetanus Immunization: Unknown - Past Social History Smoking Status: cigars - CARDIAC Hx Cardiac Disorders: Yes Hx Cardia Arrhythmia: Yes (afib) Hx Hypercholesterolemia: Yes Hx Hypertension: Yes Hx Pacemaker: No - PULMONARY Hx Respiratory Disorders: Yes Hx Bronchitis: Yes Hx Chronic Obstructive Pulmonary Disease (COPD): Yes Hx Pneumonia: Yes - NEUROLOGICAL Hx Neurological Disorder: No - HEENT Hx HEENT Problems: No - RENAL Hx Chronic Kidney Disease: No - ENDOCRINE/METABOLIC Hx Endocrine Disorders: No - HEMATOLOGICAL/ONCOLOGICAL Hx Blood Disorders: No - MUSCULOSKELETAL/RHEUMATOLOGICAL Hx Musculoskeletal Disorders: Yes (rheumatoid arthritis) Hx Arthritis: Yes (knees) Hx Falls: No Hx Osteoarthritis: Yes (knees) Hx Unsteady Gait: Yes Other/Comment: pt need b/l knee replacements, arthritic nodules, left thumb dislocated - GASTROINTESTINAL Hx Gastrointestinal Disorders: Yes Hx Gall Bladder Disease: Yes (gallstones) Hx Pancreatitis: Yes - GENITOURINARY/GYNECOLOGICAL Hx Genitourinary Disorders: No - PSYCHIATRIC Hx Psychophysiologic Disorder: Yes Hx Anxiety: (pt denies) Hx Emotional Abuse: No Hx Physical Abuse: No - SURGICAL HISTORY Hx Surgeries: Yes - ANESTHESIA Hx Anesthesia: Yes Hx Anesthesia Reactions: No Hx Malignant Hyperthermia: No Meds Allergies/Adverse Reactions: Allergies Allergy/AdvReac Type Severity Reaction Status Date / Time No Known Allergies Allergy Verified 05/04/17 13:00 - Medications Medications: Current Medications Alprazolam (Xanax) 0.25 mg PO DAILY PRN; Protocol PRN Reason: Anxiety Stop: 05/11/17 16:31 Amlodipine Besylate (Norvasc) 10 mg PO DAILY [facility] Last Admin: 05/05/17 09:04 Dose: 10 mg Atenolol (Tenormin) 25 mg PO DAILY [facility] Last Admin: 05/05/17 09:05 Dose: 25 mg Digoxin (Lanoxin) 0.125 mg PO 1400 [facility] Famotidine (Pepcid) 20 mg IVP DAILY [facility] Last Admin: 05/05/17 09:05 Dose: 20 mg Metronidazole (Flagyl) 500 mg in 100 mls @ 100 mls/hr IVPB Q8 [facility] PRN Reason: Protocol Last Admin: 05/05/17 05:33 Dose: 100 mls/hr Ceftriaxone Sodium (Rocephin 1 Gram Ivpb) 1 gm in 100 mls @ 100 mls/hr IVPB DAILY [facility] PRN Reason: Protocol Isosorbide Mononitrate (Imdur Er) 30 mg PO DAILY [facility] Last Admin: 05/05/17 09:05 Dose: 30 mg Morphine Sulfate (Morphine) 4 mg IVP Q4H PRN PRN Reason: Pain, severe (8-10) Last Admin: 05/05/17 09:04 Dose: 4 mg Ondansetron HCl (Zofran Inj) 4 mg IVP Q4H PRN PRN Reason: Nausea/Vomiting Physical Exam - Constitutional Appears: Non-toxic, No Acute Distress - Head Exam Head Exam: NORMAL INSPECTION - ENT Exam ENT Exam: Mucous Membranes Moist - Neck Exam Neck exam: Negative for: Lymphadenopathy, Meningismus - Respiratory Exam Respiratory Exam: Decreased Breath Sounds - Cardiovascular Exam Cardiovascular Exam: +S1, +S2 - GI/Abdominal Exam GI & Abdominal Exam: Soft. absent: Tenderness Results - Vital Signs Recent Vital Signs: Last Vital Signs Temp 98 F 05/05/17 08:26 Pulse 100 H 05/05/17 09:05 Resp 20 05/05/17 08:26 BP 143/76 05/05/17 09:05 Pulse Ox 94 L 05/05/17 08:26 - Labs Result Diagrams: 05/05/17 06:00 05/04/17 18:20 Labs: Laboratory Results - last 24 hr 05/04/17 05/04/17 05/04/17 18:20 18:20 18:20 WBC RBC Hgb Hct MCV MCH MCHC RDW Plt Count MPV Gran % Lymph % (Auto) Charlton % (Auto) Eos % (Auto) Baso % (Auto) Gran # Lymph # Charlton # Eos # Baso # pO2 26 L VBG pH 7.38 VBG pCO2 46.0 VBG HCO3 27.2 VBG Total CO2 28.6 H VBG O2 Sat (Calc) 57.7 VBG Base Excess 1.4 VBG Potassium 3.9 Sodium 139 136.0 Chloride 101 102.0 Glucose 158 H Lactate 3.0 H FiO2 21.0 Potassium 4.2 Carbon Dioxide 25 Anion Gap 17 BUN 10 Creatinine 0.6 Est GFR ( Amer) > 60 Est GFR (Non-Af Amer) > 60 Random Glucose 155 H Calcium 9.2 Phosphorus 3.1 Magnesium 1.4 L Total Bilirubin 1.1 AST 74 H ALT 93 H Alkaline Phosphatase 68 Total Protein 7.7 Albumin 4.5 Globulin 3.2 Albumin/Globulin Ratio 1.4 Venous Blood Potassium 3.9 Urine Color Urine Appearance Urine pH Ur Specific Boyce Urine Protein Urine Glucose (UA) Urine Ketones Urine Blood Urine Nitrate Urine Bilirubin Urine Urobilinogen Ur Leukocyte Esterase Urine RBC Urine WBC Ur Epithelial Cells Hepatitis A IgM Ab Negative Hep Bs Antigen Negative Hep B Core IgM Ab Negative Hepatitis C Antibody Negative 05/05/17 05/05/17 03:06 06:00 WBC 19.6 H RBC 4.57 Hgb 14.4 Hct 41.0 L MCV 89.7 MCH 31.5 MCHC 35.1 RDW 14.2 Plt Count 158 MPV 10.7 Gran % 94.2 H Lymph % (Auto) 3.6 L Charlton % (Auto) 2.0 Eos % (Auto) 0.1 L Baso % (Auto) 0.1 Gran # 18.51 H Lymph # 0.7 L Charlton # 0.4 Eos # 0.0 Baso # 0.01 pO2 VBG pH VBG pCO2 VBG HCO3 VBG Total CO2 VBG O2 Sat (Calc) VBG Base Excess VBG Potassium Sodium Chloride Glucose Lactate FiO2 Potassium Carbon Dioxide Anion Gap BUN Creatinine Est GFR ( Amer) Est GFR (Non-Af Amer) Random Glucose Calcium Phosphorus Magnesium Total Bilirubin AST ALT Alkaline Phosphatase Total Protein Albumin Globulin Albumin/Globulin Ratio Venous Blood Potassium Urine Color Yellow Urine Appearance Clear Urine pH 6.0 Ur Specific Boyce 1.025 Urine Protein Trace H Urine Glucose (UA) Negative Urine Ketones Trace H Urine Blood Negative Urine Nitrate Negative Urine Bilirubin Negative Urine Urobilinogen 0.2 Ur Leukocyte Esterase Negative Urine RBC 0 - 2 Urine WBC 0 - 2 Ur Epithelial Cells 0 - 2 Hepatitis A IgM Ab Hep Bs Antigen Hep B Core IgM Ab Hepatitis C Antibody Assessment & Plan - Assessment and Plan (Free Text) Plan: Assessment Consider sepsis due to acute cholecystitis HTN atrial fibrillation with history of cardioversion rheumatoid arthritis COPD dyslipidemia history of pancreatitis S/P left ACL repair CAD S/P PCI S/P left toe amputation Plan Started patient on a dose of IV Vancomycin and Merrem pending blood cx, OR cx and pathology follow up results of the planned surgery will monitor clinically
[2017-05-05] MEDS ORDERED: HYDROmorphone 0.5 mg/0.5 ml ISec IVP PRN (15:52)
[2017-05-05] MEDS ORDERED: Lactated Ringer's 1,000 ML IV SCH (16:00)
[2017-05-05] MEDS ORDERED: Neostigmine Methylsulfate 3mg/3ml Syringe IV ONE (16:09)
--- NOTE | 2017-05-05 16:35 | PCM.SURG1 ---
Surgeon's Initial Post Op Note - Surgeon's Notes Surgeon: Dr. Duarte Parachute Marker: Dr. Ferrari PGY-4, Dr. Mosher PGY-2, Dr. Orosco PGY-1 Type of Anesthesia: General Endo Pre-Operative Diagnosis: acute cholecystitis Operative Findings: acute cholecystitis Post-Operative Diagnosis: same Operation Performed: laparoscopic cholecystectomy Specimen/Specimens Removed: gallbladder Estimated Blood Loss: EBL {In ML}: 50 Blood Products Given: N/A Drains Used: Raghavendra Post-Op Condition: Good Date of Surgery/Procedure: 05/05/17 Time of Surgery/Procedure: 16:34
[2017-05-05] MEDS: HYDROmorphone 0.5 mg/0.5 ml ISec IVP PRN ×2 (18:04→22:42)
[2017-05-06] MEDS: HYDROmorphone 0.5 mg/0.5 ml ISec IVP PRN ×3 (04:13→19:51)
[2017-05-06] MEDS: Meropenem 1g/NS 100mL IVPB 1 GM/100 ML PIGGYBACK IVPB SCH ×3 (05:04→21:29)
[2017-05-06 06:29] LABS: MEAN CELL VOLUME 90.5 fl (80.0-105.0); MEAN CORPUSCULAR HEMOGLOBIN 31.1 pg (25.0-35.0); MEAN CORPUSCULAR HGB CONC 34.3 g/dl (31.0-37.0); RED CELL DISTRIBUTION WIDTH 14.7 % (11.5-14.5); WHITE BLOOD COUNT 20.6 10^3/ul (4.5-11.0)
[2017-05-06 06:57] LABS: ALB/GLOB RATIO 1.3 (1.1-1.8); ALKALINE PHOSPHATASE 120 U/L (38-126); ALT/SGPT 266 U/L (7-56); AST/SGOT 240 U/L (17-59); BILIRUBIN,TOTAL 3.1 mg/dL (0.2-1.3); BLOOD UREA NITROGEN 19 mg/dL (7-21); CALCIUM 8.5 mg/dL (8.4-10.5); CARBON DIOXIDE 25 mmol/L (21-33); CHLORIDE 104 mmol/L (98-107); GFR AFRICAN-AMERICAN > 60; GLUCOSE,RANDOM 145 mg/dL (70-110); MAGNESIUM 1.9 mg/dL (1.7-2.2); PHOSPHOROUS 1.8 mg/dL (2.5-4.5); POTASSIUM 3.8 mmol/L (3.6-5.0); SODIUM 139 mmol/L (132-148); TOTAL PROTEIN 6.2 g/dL (5.8-8.3)
--- NOTE | 2017-05-06 08:02 | CONS ---
DATE: 05/05/2017 REASON FOR CONSULTATION: Follow up preop evaluation, risk stratification for cholecystectomy, possible acute cholecystitis. BRIEF CLINICAL HISTORY: This is a 66-year-old male with past medical history significant for rheumatoid arthritis, COPD, hypercholesterolemia, AFib, status post SURAJ cardioversion, history of coronary artery disease, status post PTCA 2 years ago, multiple stents, last stent 2 years ago, admitted with abdominal pain and they are going to OR for possible cholecystectomy. He denies any chest pain, shortness of breath, any palpitation. HISTORY OF PRESENT ILLNESS: Significant for coronary artery disease, history of multiple stents, last stent 2 years ago, history of hyperlipidemia, hypertension, and rheumatoid arthritis. History of most recent intervention 02/21/2017, for PTCA of RCA. At that time, the cardiac catheterization revealed patent previous site, successful PTCA of proximal and mid RCA for in-stent restenosis . Recommendation with complete cessation of smoking and complete compliance with the medication, dated 03/03/2015. Previous cardiac workup as follows; most recent cardiac catheterization on 03/03/2015, showed right dominant system, left mid essential for significant disease, LAD has a 50% mid in-stent stenosis, mid circumflex totally occluded after having a large OM #1 and patent stent in OM #1. Right coronary artery with 80-90% stenosis where the PTCA was done dated 03/03/2015. Most recent echocardiography done on 01/13/2017, that showed ejection fraction 55%, plaque in the descending aorta, where the patient underwent SURAJ cardioversion, [id number] concentric LVH, intact intraatrial septum, 200 synchronized cardioversion done. The patient converted to normal sinus. [id number] mitral regurgitation noted, trace tricuspid regurgitation, dated 01/13/2017. PAST SURGICAL HISTORY: Significant for toe amputation, anterior cruciate ligament repair, wrist surgery of the right arm. SOCIAL HISTORY: Smoked cigar 50 years ago. Socially, he drinks. He denies any history of substance abuse. REVIEW OF SYSTEMS: As per HPI. PHYSICAL EXAMINATION: As follows; VITAL SIGNS: Temperature afebrile, heart rate 100, blood pressure 143/76. HEENT: PERRLA. Intact. NECK: Supple. No carotid bruit. No thyromegaly. CHEST: Clear to auscultation. HEART: S1 and S2 regular. ABDOMEN: Soft. EXTREMITIES: Clubbing and cyanosis negative. LABORATORY DATA: EKG shows normal sinus and incomplete right bundle-branch block. IMPRESSION: Acute cholecystitis and needs to go to the OR, history of coronary artery disease with multiple stents, last stent 02/11/2015. He is status post transesophageal echocardiography cardioversion in February, since the patient is in normal sinus. History of rheumatoid arthritis, obesity, multiple stents, admitted with acute cholecystitis, going to go to the operating room. The patient with [id number] risk because of underlying comorbidity, but no evidence of acute ischemia, no evidence of acute arrhythmia or congestive heart failure, so no absolute contraindication for surgery. The patient okay to go for the transesophageal echocardiography in [id number] risk. We will hold aspirin and Plavix. Once surgery is done, after 24 to 48 hours, if stable, we will restart aspirin and Plavix. For now continue preoperative digoxin or beta-adali. We will follow with you. CURRENT MEDICATIONS: The patient taking at home, aspirin, Crestor, digoxin, Lasix, methotrexate, Plavix, atenolol, and tramadol. We will follow with you. Thank you Dr. Ramos for providing me the opportunity in taking care of the patient, Blanco Russell. Gracia Arias MD [email or web address]
--- NOTE | 2017-05-06 08:44 | CP.PCM.PN ---
Subjective - Date & Time of Evaluation Date of Evaluation: 05/06/17 Time of Evaluation: 08:40 - Subjective Subjective: PGY1 Note for Dr. Duarte HPI: Patient seen and examined at bedside. Doing well. Complaining of mild pain around incision sites/drain site. No episodes of N/V/D. Denies fever. Wants to go home. Objective - Vital Signs/Intake and Output Vital Signs (last 24 hours): Temp Pulse Resp BP Pulse Ox 98.2 F 80 20 118/72 98 05/06/17 07:43 05/06/17 07:43 05/06/17 07:43 05/06/17 07:43 05/06/17 07:43 Intake and Output: 05/06/17 05/06/17 06:59 18:59 Intake Total 480 Balance 480 - Medications Medications: Current Medications Acetaminophen (Tylenol 325mg Tab) 650 mg PO Q6H PRN PRN Reason: Fever >100.4 F Alprazolam (Xanax) 0.25 mg PO DAILY PRN; Protocol PRN Reason: Anxiety Stop: 05/11/17 16:31 Amlodipine Besylate (Norvasc) 10 mg PO DAILY [facility] Last Admin: 05/05/17 09:04 Dose: 10 mg Atenolol (Tenormin) 25 mg PO DAILY [facility] Last Admin: 05/05/17 09:05 Dose: 25 mg Digoxin (Lanoxin) 0.125 mg PO 1400 [facility] Last Admin: 05/05/17 14:42 Dose: Not Given Famotidine (Pepcid) 20 mg IVP DAILY [facility] Last Admin: 05/05/17 09:05 Dose: 20 mg Heparin Sodium (Porcine) (Heparin) 5,000 units SC Q12 [facility] PRN Reason: Protocol Hydromorphone HCl (Dilaudid) 0.5 mg IVP Q3H PRN PRN Reason: Pain, moderate (4-7) Last Admin: 05/06/17 04:13 Dose: 0.5 mg Meropenem 1g/NS 100mL IVPB (Meropenem 1g/Ns 100ml Ivpb) 1 gm in 100 mls @ 100 mls/hr IVPB Q8 [facility] PRN Reason: Protocol Stop: 05/12/17 09:31 Last Admin: 05/06/17 05:04 Dose: 100 mls/hr Isosorbide Mononitrate (Imdur Er) 30 mg PO DAILY [facility] Last Admin: 05/05/17 09:05 Dose: 30 mg Nicotine (Nicoderm Cq) 1 patch TD DAILY [facility] Last Admin: 05/05/17 18:31 Dose: 1 patch Ondansetron HCl (Zofran Inj) 4 mg IVP Q4H PRN PRN Reason: Nausea/Vomiting Ondansetron HCl (Zofran Inj) 4 mg IVP ONCE PRN PRN Reason: Nausea/Vomiting - Labs Labs: 05/06/17 06:00 05/06/17 06:00 PT 12.4 Seconds (9.9-11.8) H 05/04/17 13:35 INR 1.15 (0.93-1.08) H 05/04/17 13:35 APTT 28.5 Seconds (23.7-30.8) 05/04/17 13:35 - Constitutional Appears: Well, Non-toxic, No Acute Distress - Head Exam Head Exam: ATRAUMATIC, NORMAL INSPECTION, NORMOCEPHALIC - Eye Exam Eye Exam: EOMI - ENT Exam ENT Exam: Mucous Membranes Moist - Respiratory Exam Respiratory Exam: Clear to Ausculation Bilateral, NORMAL BREATHING PATTERN - Cardiovascular Exam Cardiovascular Exam: REGULAR RHYTHM - GI/Abdominal Exam GI & Abdominal Exam: Soft, Tenderness (mild tenderness around sincision sites. Incision C/D/I. 100 serosanginous fluid JERRI drain output over night. 20ml out this morning. ), Normal Bowel Sounds. absent: Distended - Extremities Exam Extremities Exam: absent: Joint Swelling, Tenderness - Back Exam Back Exam: absent: CVA tenderness (L), CVA tenderness (R) - Neurological Exam Neurological Exam: Alert, Awake, Oriented x3 - Psychiatric Exam Psychiatric exam: Normal Affect, Normal Mood - Skin Skin Exam: Dry, Intact, Normal Color, Warm Assessment and Plan - Assessment and Plan (Free Text) Assessment: 66 Y/o POD#1 Lap dustin for acute cholecystitis Plan: * Monitor drain output * Pain control: Dilaudid 0.5 IV Q3 * Abx: Merem 1 IV Q8 * Heart Healthy Diet Danyel Orosco DO PGY1
--- NOTE | 2017-05-06 11:35 | PN ---
DATE: 05/06/2017 LOCATION: The patient is in room 570, bed 2. REASON FOR CONSULTATION: Followup with coronary artery disease, status post cholecystectomy, atrial fibrillation status post SURAJ cardioversion to sinus rhythm. SUBJECTIVE: The patient sitting in bed without any chest pain, shortness of breath, or palpitation. The patient is complaining of pain in the site of surgery. He still has drain. PHYSICAL EXAMINATION: VITAL SIGNS: Blood pressure 118/72, respirations 20, pulse of 80, and temperature 98.2. HEENT: Head is normocephalic. Eyes; pupils are normal. Conjunctivae normal. Nose and throat normal. NECK: JVP low. Carotid equal. THORAX: AP diameter normal. LUNGS: Clear. CARDIOVASCULAR: S1 and S2. ABDOMEN: Abdominal surgery as mentioned. Still has drain. PERIPHERY: No clubbing. No cyanosis. LABORATORY DATA: WBC 20.6, hemoglobin 12.7, hematocrit 37.0, and platelet 129. Sodium 139, potassium 3.8, BUN 19, creatinine 0.7, random glucose 145, phosphorus 1.8, and magnesium 1.9. AST 240, ALT 266, and alkaline phosphatase 120. DIAGNOSES: Status post cholecystectomy, history of coronary artery disease, the patient had multiple stents in the past, last stent was 2 years prior, but latest stent was 02/21/2017. This patient had percutaneous transluminal coronary angioplasty of right coronary artery, also at that time the patient previous successful percutaneous transluminal coronary angioplasty of proximal right coronary artery for in-stent restenosis was done, hypercholesterolemia, chronic obstructive pulmonary disease, rheumatoid arthritis, status post cholecystectomy, status post atrial fibrillation, and transesophageal echocardiography cardioversion to sinus rhythm. PLAN: The patient will have heparin 5000 units subcutaneous q.12 hours, isosorbide mononitrate 30 daily, digoxin 0.125 daily, meropenem 1 g IV q.8 hours, amlodipine 10 mg daily, and atenolol 25 mg daily. Clinically, cardiac status is stable. We will continue present . Gracia Payne MD
--- NOTE | 2017-05-06 12:15 | CP.PCM.PN ---
Subjective - Date & Time of Evaluation Date of Evaluation: 05/06/17 Time of Evaluation: 11:20 - Subjective Subjective: Tolerated cholecystectomy yesterday, doing well, not much abdominal pain, no fevers, not in distress. Objective - Vital Signs/Intake and Output Vital Signs (last 24 hours): Temp Pulse Resp BP Pulse Ox 98.2 F 80 20 118/72 98 05/06/17 07:43 05/06/17 07:43 05/06/17 07:43 05/06/17 07:43 05/06/17 07:43 Intake and Output: 05/06/17 05/06/17 06:59 18:59 Intake Total 480 Balance 480 - Medications Medications: Current Medications Acetaminophen (Tylenol 325mg Tab) 650 mg PO Q6H PRN PRN Reason: Fever >100.4 F Alprazolam (Xanax) 0.25 mg PO DAILY PRN; Protocol PRN Reason: Anxiety Stop: 05/11/17 16:31 Amlodipine Besylate (Norvasc) 10 mg PO DAILY [facility] Last Admin: 05/05/17 09:04 Dose: 10 mg Atenolol (Tenormin) 25 mg PO DAILY [facility] Last Admin: 05/05/17 09:05 Dose: 25 mg Digoxin (Lanoxin) 0.125 mg PO 1400 [facility] Last Admin: 05/05/17 14:42 Dose: Not Given Famotidine (Pepcid) 20 mg IVP DAILY [facility] Last Admin: 05/05/17 09:05 Dose: 20 mg Heparin Sodium (Porcine) (Heparin) 5,000 units SC Q12 [facility] PRN Reason: Protocol Hydromorphone HCl (Dilaudid) 0.5 mg IVP Q3H PRN PRN Reason: Pain, moderate (4-7) Last Admin: 05/06/17 04:13 Dose: 0.5 mg Meropenem 1g/NS 100mL IVPB (Meropenem 1g/Ns 100ml Ivpb) 1 gm in 100 mls @ 100 mls/hr IVPB Q8 [facility] PRN Reason: Protocol Stop: 05/12/17 09:31 Last Admin: 05/06/17 05:04 Dose: 100 mls/hr Isosorbide Mononitrate (Imdur Er) 30 mg PO DAILY [facility] Last Admin: 05/05/17 09:05 Dose: 30 mg Nicotine (Nicoderm Cq) 1 patch TD DAILY [facility] Last Admin: 05/05/17 18:31 Dose: 1 patch Ondansetron HCl (Zofran Inj) 4 mg IVP Q4H PRN PRN Reason: Nausea/Vomiting Ondansetron HCl (Zofran Inj) 4 mg IVP ONCE PRN PRN Reason: Nausea/Vomiting - Labs Labs: 05/06/17 06:00 05/06/17 06:00 PT 12.4 Seconds (9.9-11.8) H 05/04/17 13:35 INR 1.15 (0.93-1.08) H 05/04/17 13:35 APTT 28.5 Seconds (23.7-30.8) 05/04/17 13:35 - Constitutional Appears: Non-toxic, No Acute Distress - Head Exam Head Exam: NORMAL INSPECTION - ENT Exam ENT Exam: Mucous Membranes Moist - Neck Exam Neck Exam: absent: Meningismus - Respiratory Exam Respiratory Exam: Decreased Breath Sounds - Cardiovascular Exam Cardiovascular Exam: +S1, +S2 - GI/Abdominal Exam GI & Abdominal Exam: Soft. absent: Tenderness Assessment and Plan - Assessment and Plan (Free Text) Plan: Assessment Consider sepsis due to acute cholecystitis, S/P laparoscopic cholecystectomy POD #1 HTN atrial fibrillation with history of cardioversion rheumatoid arthritis COPD dyslipidemia history of pancreatitis S/P left ACL repair CAD S/P PCI S/P left toe amputation Plan continue Merrem pending blood cx, OR cx and pathology follow up results of the planned surgery will continue to monitor clinically and trend fever curve
--- NOTE | 2017-05-06 12:57 | CP.PCM.PN ---
<Rakel Amaro - Last Filed: 05/06/17 13:03> Subjective - Date & Time of Evaluation Date of Evaluation: 05/06/17 Time of Evaluation: 09:40 - Subjective Subjective: S&E at bedside, earlier today, s/p lap dustin w/ IOC, patient decrease abdominal pain, 12/15, No N/V, sob or CP. No BM but belching. No fever or chills, no acute overnight events. Objective - Vital Signs/Intake and Output Vital Signs (last 24 hours): Temp Pulse Resp BP Pulse Ox 98.2 F 80 20 118/72 98 05/06/17 07:43 05/06/17 07:43 05/06/17 07:43 05/06/17 07:43 05/06/17 07:43 Intake and Output: 05/06/17 05/06/17 06:59 18:59 Intake Total 480 Balance 480 - Medications Medications: Current Medications Acetaminophen (Tylenol 325mg Tab) 650 mg PO Q6H PRN PRN Reason: Fever >100.4 F Alprazolam (Xanax) 0.25 mg PO DAILY PRN; Protocol PRN Reason: Anxiety Stop: 05/11/17 16:31 Amlodipine Besylate (Norvasc) 10 mg PO DAILY [facility] Last Admin: 05/05/17 09:04 Dose: 10 mg Atenolol (Tenormin) 25 mg PO DAILY [facility] Last Admin: 05/05/17 09:05 Dose: 25 mg Digoxin (Lanoxin) 0.125 mg PO 1400 [facility] Last Admin: 05/05/17 14:42 Dose: Not Given Famotidine (Pepcid) 20 mg IVP DAILY [facility] Last Admin: 05/05/17 09:05 Dose: 20 mg Heparin Sodium (Porcine) (Heparin) 5,000 units SC Q12 [facility] PRN Reason: Protocol Last Admin: 05/06/17 10:49 Dose: 5,000 units Hydromorphone HCl (Dilaudid) 0.5 mg IVP Q3H PRN PRN Reason: Pain, moderate (4-7) Last Admin: 05/06/17 04:13 Dose: 0.5 mg Meropenem 1g/NS 100mL IVPB (Meropenem 1g/Ns 100ml Ivpb) 1 gm in 100 mls @ 100 mls/hr IVPB Q8 [facility] PRN Reason: Protocol Stop: 05/12/17 09:31 Last Admin: 05/06/17 05:04 Dose: 100 mls/hr Isosorbide Mononitrate (Imdur Er) 30 mg PO DAILY [facility] Last Admin: 05/05/17 09:05 Dose: 30 mg Nicotine (Nicoderm Cq) 1 patch TD DAILY [facility] Last Admin: 05/06/17 10:51 Dose: 1 patch Ondansetron HCl (Zofran Inj) 4 mg IVP Q4H PRN PRN Reason: Nausea/Vomiting Ondansetron HCl (Zofran Inj) 4 mg IVP ONCE PRN PRN Reason: Nausea/Vomiting - Labs Labs: 05/06/17 06:00 05/06/17 06:00 PT 12.4 Seconds (9.9-11.8) H 05/04/17 13:35 INR 1.15 (0.93-1.08) H 05/04/17 13:35 APTT 28.5 Seconds (23.7-30.8) 05/04/17 13:35 - Constitutional Appears: No Acute Distress - Eye Exam Eye Exam: Scleral icterus - ENT Exam ENT Exam: Mucous Membranes Moist - Neck Exam Neck Exam: Normal Inspection - Respiratory Exam Respiratory Exam: NORMAL BREATHING PATTERN. absent: Respiratory Distress - Cardiovascular Exam Cardiovascular Exam: +S1, +S2 - GI/Abdominal Exam GI & Abdominal Exam: Soft, Tenderness, Normal Bowel Sounds. absent: Guarding, Rebound Additional comments: lap sites w/ clear glue, dry and intact, JERRI drain w/ serosanguenous. - Extremities Exam Extremities Exam: Normal Capillary Refill, Pedal Edema (trace). absent: Calf Tenderness - Neurological Exam Neurological Exam: Alert, Awake, Oriented x3 - Skin Skin Exam: Dry, Warm Assessment and Plan - Assessment and Plan (Free Text) Assessment: ASSESSMENT: Acute cholecytisits, s/p lap cholecystitis w/attempted IOC, found to have gangernous gallbladder POD #1 Cholelithiasis Stable 5mm Pancreatic cystic lesion Leukocytosis Elevated LFT, increase today,differential, congestion, medication induced CAD w/ multiple stents(15) RA on Actemia treatment COPD PLAN: change diet to clear liquid Continue Pepcid IV antibiotics as per ID, on Merpenum trend LFT, check ggtp, direct bilirubin DVT prophylaxsis Cardiology, surgical FU Seen and discussed w/ Dr. Martino. <Evelin Martino V - Last Filed: 05/06/17 23:47> Objective - Vital Signs/Intake and Output Vital Signs (last 24 hours): Temp Pulse Resp BP Pulse Ox 97.5 F L 89 18 124/72 96 05/06/17 16:00 05/06/17 16:00 05/06/17 16:00 05/06/17 16:00 05/06/17 16:00 Intake and Output: 05/06/17 05/07/17 18:59 06:59 Intake Total 300 Balance 300 - Medications Medications: Current Medications Acetaminophen (Tylenol 325mg Tab) 650 mg PO Q6H PRN PRN Reason: Fever >100.4 F Alprazolam (Xanax) 0.25 mg PO DAILY PRN; Protocol PRN Reason: Anxiety Stop: 05/11/17 16:31 Amlodipine Besylate (Norvasc) 10 mg PO DAILY [facility] Last Admin: 05/05/17 09:04 Dose: 10 mg Atenolol (Tenormin) 25 mg PO DAILY [facility] Last Admin: 05/05/17 09:05 Dose: 25 mg Digoxin (Lanoxin) 0.125 mg PO 1400 [facility] Last Admin: 05/06/17 14:20 Dose: 0.125 mg Famotidine (Pepcid) 20 mg PO 1000 [facility] Heparin Sodium (Porcine) (Heparin) 5,000 units SC Q12 [facility] PRN Reason: Protocol Last Admin: 05/06/17 21:30 Dose: 5,000 units Hydromorphone HCl (Dilaudid) 0.5 mg IVP Q3H PRN PRN Reason: Pain, moderate (4-7) Last Admin: 05/06/17 19:51 Dose: 0.5 mg Meropenem 1g/NS 100mL IVPB (Meropenem 1g/Ns 100ml Ivpb) 1 gm in 100 mls @ 100 mls/hr IVPB Q8 [facility] PRN Reason: Protocol Stop: 05/12/17 09:31 Last Admin: 05/06/17 21:29 Dose: 100 mls/hr Isosorbide Mononitrate (Imdur Er) 30 mg PO DAILY [facility] Last Admin: 05/05/17 09:05 Dose: 30 mg Nicotine (Nicoderm Cq) 1 patch TD DAILY [facility] Last Admin: 05/06/17 10:51 Dose: 1 patch Ondansetron HCl (Zofran Inj) 4 mg IVP Q4H PRN PRN Reason: Nausea/Vomiting Ondansetron HCl (Zofran Inj) 4 mg IVP ONCE PRN PRN Reason: Nausea/Vomiting - Labs Labs: 05/06/17 06:00 05/06/17 13:39 PT 12.4 Seconds (9.9-11.8) H 05/04/17 13:35 INR 1.15 (0.93-1.08) H 05/04/17 13:35 APTT 28.5 Seconds (23.7-30.8) 05/04/17 13:35 Attending/Attestation - Attestation I have personally seen and examined this patient.: Yes I have fully participated in the care of the patient.: Yes I have reviewed all pertinent clinical information, including history, physical exam and plan: Yes Notes (Text): p 05/06/17 23:46
[2017-05-06 14:00] LABS: ALB/GLOB RATIO 1.3 (1.1-1.8); ALKALINE PHOSPHATASE 110 U/L (38-126); ALT/SGPT 232 U/L (7-56); AST/SGOT 166 U/L (17-59); BILIRUBIN,DIRECT 1.1 mg/dL (0.0-0.4); BILIRUBIN,TOTAL 1.9 mg/dL (0.2-1.3); BLOOD UREA NITROGEN 21 mg/dL (7-21); CALCIUM 8.7 mg/dL (8.4-10.5); CARBON DIOXIDE 28 mmol/L (21-33); CHLORIDE 101 mmol/L (98-107); GFR AFRICAN-AMERICAN > 60; GLUCOSE,RANDOM 171 mg/dL (70-110); POTASSIUM 3.5 mmol/L (3.6-5.0); SODIUM 137 mmol/L (132-148)
[2017-05-06] MEDS: Digoxin 125 mcg (0.125 mg) Tab PO SCH (14:20)
--- NOTE | 2017-05-06 16:05 | CP.PCM.PN ---
Subjective - Date & Time of Evaluation Date of Evaluation: 05/06/17 Time of Evaluation: 08:05 - Subjective Subjective: Hospitalist Service Progress Note: Patient seen and examined at bedside. Per nursing no acute events overnight. Patient is doing well, having some pain at drain site. Ambulating. ISS at the bedside. Denies passing flatus or BM. Denies headaches, dizziness, cp, palpitations, sob, urinary symptoms. Objective - Vital Signs/Intake and Output Vital Signs (last 24 hours): Temp Pulse Resp BP Pulse Ox 98.2 F 80 20 118/72 98 05/06/17 07:43 05/06/17 07:43 05/06/17 07:43 05/06/17 07:43 05/06/17 07:43 Intake and Output: 05/06/17 05/06/17 06:59 18:59 Intake Total 480 Balance 480 - Medications Medications: Current Medications Acetaminophen (Tylenol 325mg Tab) 650 mg PO Q6H PRN PRN Reason: Fever >100.4 F Alprazolam (Xanax) 0.25 mg PO DAILY PRN; Protocol PRN Reason: Anxiety Stop: 05/11/17 16:31 Amlodipine Besylate (Norvasc) 10 mg PO DAILY [facility] Last Admin: 05/05/17 09:04 Dose: 10 mg Atenolol (Tenormin) 25 mg PO DAILY [facility] Last Admin: 05/05/17 09:05 Dose: 25 mg Digoxin (Lanoxin) 0.125 mg PO 1400 [facility] Last Admin: 05/06/17 14:20 Dose: 0.125 mg Famotidine (Pepcid) 20 mg IVP DAILY [facility] Last Admin: 05/05/17 09:05 Dose: 20 mg Heparin Sodium (Porcine) (Heparin) 5,000 units SC Q12 [facility] PRN Reason: Protocol Last Admin: 05/06/17 10:49 Dose: 5,000 units Hydromorphone HCl (Dilaudid) 0.5 mg IVP Q3H PRN PRN Reason: Pain, moderate (4-7) Last Admin: 05/06/17 14:26 Dose: 0.5 mg Meropenem 1g/NS 100mL IVPB (Meropenem 1g/Ns 100ml Ivpb) 1 gm in 100 mls @ 100 mls/hr IVPB Q8 [facility] PRN Reason: Protocol Stop: 05/12/17 09:31 Last Admin: 05/06/17 14:19 Dose: 100 mls/hr Isosorbide Mononitrate (Imdur Er) 30 mg PO DAILY [facility] Last Admin: 05/05/17 09:05 Dose: 30 mg Nicotine (Nicoderm Cq) 1 patch TD DAILY [facility] Last Admin: 05/06/17 10:51 Dose: 1 patch Ondansetron HCl (Zofran Inj) 4 mg IVP Q4H PRN PRN Reason: Nausea/Vomiting Ondansetron HCl (Zofran Inj) 4 mg IVP ONCE PRN PRN Reason: Nausea/Vomiting - Labs Labs: 05/06/17 06:00 05/06/17 13:39 PT 12.4 Seconds (9.9-11.8) H 05/04/17 13:35 INR 1.15 (0.93-1.08) H 05/04/17 13:35 APTT 28.5 Seconds (23.7-30.8) 05/04/17 13:35 - Constitutional Appears: Non-toxic, No Acute Distress - Head Exam Head Exam: ATRAUMATIC, NORMAL INSPECTION - Eye Exam Eye Exam: EOMI, Scleral icterus Pupil Exam: PERRL - ENT Exam ENT Exam: Mucous Membranes Moist - Neck Exam Neck Exam: Full ROM - Respiratory Exam Respiratory Exam: Clear to Ausculation Bilateral, NORMAL BREATHING PATTERN. absent: Rales, Rhonchi, Wheezes - Cardiovascular Exam Cardiovascular Exam: REGULAR RHYTHM, +S1, +S2 - GI/Abdominal Exam GI & Abdominal Exam: Soft, Tenderness. absent: Guarding Additional comments: +JERRI drain with serosanguinous fluid - Extremities Exam Extremities Exam: Full ROM, Normal Inspection. absent: Calf Tenderness - Back Exam Back Exam: NORMAL INSPECTION - Neurological Exam Neurological Exam: Alert, Awake, Normal Gait, Oriented x3 - Psychiatric Exam Psychiatric exam: Normal Affect, Normal Mood - Skin Skin Exam: Normal Color, Warm Assessment and Plan - Assessment and Plan (Free Text) Assessment: 66 year old male with past medical history of HTN, rheumatoid arthritis, COPD, hypercholesterolemia, recently admitted for pancreatitis presents to the ED for epigastric pain that started this morning. Abdominal US showed distended gallbladder, multiple gallstones/sludge balls, thickened gallbladder wall, gallbladder diverticuli, no CBD dilation. S/P Laparoscopic Cholecystectomy POD#1 Plan: 1. Acute Cholecystitis -VSS, afebrile -Leukocytosis WBC 20.6 -Abx: Merrem (day 2) -Pain control prn, Zofran prn nausea -Advance diet as tolerated -F/U OR cx and pathology -Encourage ambulation and ISS -ID on consult f/u recommendations -General surgery on consult, f/u recommendations -GI on consult, f/u recommendations 2. Hypertension -Continue Norvasc and Atenolol -Will hold Lasix 3. Transaminitis -LFTs and T bili increased likely 2/2 post surgical, will continue to monitor -Avoid hepatotoxic agents -Holding crestor -Continue to monitor 4. Hx of Afib; Hx of SURAJ/cardioversion -EKG on admission - NSR with LAFB -Last echo 01/2017 showing EF of 60% -Continue digoxin -Cardiology on consult 5. Hx of Rheumatoid arthritis -On Actmera IV infusion therapy currently -Will hold methotrexate at this time -Continue folic acid 6. Hx of CAD, s/p 15 cardiac stents -Will hold ASA and Plavix -Continue Imdur -Cardiology consulted, f/u recommendations GI/DVT ppx -Pepcid 20mg PO daily -SCDs
[2017-05-06] MEDS ORDERED: Potassium Chloride 20 mEq ER Tab PO ONE (16:09)
[2017-05-07] MEDS: Meropenem 1g/NS 100mL IVPB 1 GM/100 ML PIGGYBACK IVPB SCH ×3 (06:24→22:29)
[2017-05-07] MEDS: HYDROmorphone 0.5 mg/0.5 ml ISec IVP PRN ×3 (06:28→22:34)
[2017-05-07 08:40] LABS: MEAN CELL VOLUME 90.7 fl (80.0-105.0); MEAN CORPUSCULAR HEMOGLOBIN 31.4 pg (25.0-35.0); MEAN CORPUSCULAR HGB CONC 34.6 g/dl (31.0-37.0); MEAN PLATELET VOLUME 11.4 fl (7.0-11.0); RED CELL DISTRIBUTION WIDTH 14.4 % (11.5-14.5)
--- NOTE | 2017-05-07 09:08 | CP.PCM.PN ---
Subjective - Date & Time of Evaluation Date of Evaluation: 05/07/17 Time of Evaluation: 09:01 - Subjective Subjective: General Surgery Progress Note for Dr. Duarte Patient seen and examined at bedside. Patient resting in bed comfortably. Patient reports pain at incision and drain site. He is tolerating clear liquid diet. Patient has no other complaints at this time. Elisa drain 75 cc of output overnight. Objective - Vital Signs/Intake and Output Vital Signs (last 24 hours): Temp Pulse Resp BP Pulse Ox 97.4 F L 80 20 149/84 96 05/07/17 08:00 05/07/17 08:00 05/07/17 08:00 05/07/17 08:00 05/07/17 08:00 Intake and Output: 05/07/17 05/07/17 06:59 18:59 Intake Total 840 Output Total 165 Balance 675 - Medications Medications: Current Medications Acetaminophen (Tylenol 325mg Tab) 650 mg PO Q6H PRN PRN Reason: Fever >100.4 F Alprazolam (Xanax) 0.25 mg PO DAILY PRN; Protocol PRN Reason: Anxiety Stop: 05/11/17 16:31 Amlodipine Besylate (Norvasc) 10 mg PO DAILY [facility] Last Admin: 05/05/17 09:04 Dose: 10 mg Atenolol (Tenormin) 25 mg PO DAILY [facility] Last Admin: 05/05/17 09:05 Dose: 25 mg Digoxin (Lanoxin) 0.125 mg PO 1400 [facility] Last Admin: 05/06/17 14:20 Dose: 0.125 mg Famotidine (Pepcid) 20 mg PO 1000 [facility] Heparin Sodium (Porcine) (Heparin) 5,000 units SC Q12 [facility] PRN Reason: Protocol Last Admin: 05/06/17 21:30 Dose: 5,000 units Hydromorphone HCl (Dilaudid) 0.5 mg IVP Q3H PRN PRN Reason: Pain, moderate (4-7) Last Admin: 05/07/17 06:28 Dose: 0.5 mg Meropenem 1g/NS 100mL IVPB (Meropenem 1g/Ns 100ml Ivpb) 1 gm in 100 mls @ 100 mls/hr IVPB Q8 [facility] PRN Reason: Protocol Stop: 05/12/17 09:31 Last Admin: 05/07/17 06:24 Dose: 100 mls/hr Isosorbide Mononitrate (Imdur Er) 30 mg PO DAILY [facility] Last Admin: 05/05/17 09:05 Dose: 30 mg Nicotine (Nicoderm Cq) 1 patch TD DAILY [facility] Last Admin: 05/06/17 10:51 Dose: 1 patch Ondansetron HCl (Zofran Inj) 4 mg IVP Q4H PRN PRN Reason: Nausea/Vomiting Ondansetron HCl (Zofran Inj) 4 mg IVP ONCE PRN PRN Reason: Nausea/Vomiting Tramadol HCl (Ultram) 25 mg PO TID PRN PRN Reason: Pain, moderate (4-7) - Labs Labs: 05/07/17 08:20 05/06/17 13:39 PT 12.4 Seconds (9.9-11.8) H 05/04/17 13:35 INR 1.15 (0.93-1.08) H 05/04/17 13:35 APTT 28.5 Seconds (23.7-30.8) 05/04/17 13:35 - Constitutional Appears: No Acute Distress - Head Exam Head Exam: ATRAUMATIC, NORMOCEPHALIC - Eye Exam Eye Exam: Normal appearance - ENT Exam ENT Exam: Mucous Membranes Moist - Respiratory Exam Respiratory Exam: NORMAL BREATHING PATTERN - Cardiovascular Exam Cardiovascular Exam: REGULAR RHYTHM - GI/Abdominal Exam GI & Abdominal Exam: Soft, Tenderness (incision sites). absent: Distended, Firm , Guarding, Rigid, Rebound Additional comments: 75 cc of serosanginous output from elisa drain dressings clean, dry and intact - Neurological Exam Neurological Exam: Alert, Awake, Oriented x3 - Psychiatric Exam Psychiatric exam: Normal Affect, Normal Mood - Skin Skin Exam: Dry, Intact, Normal Color, Warm Assessment and Plan - Assessment and Plan (Free Text) Plan: 66 M s/p laparoscopic cholecystectomy POD#2 for acute cholecystitis -Monitor drain output -ADAT -Monitor LFTs -Continue IV antibiotics -Analgesics -Will DW Dr. Gerald Larkin PGY1
[2017-05-07 10:22] LABS: ALB/GLOB RATIO 1.3 (1.1-1.8); ALKALINE PHOSPHATASE 147 U/L (38-126); ALT/SGPT 188 U/L (7-56); AST/SGOT 102 U/L (17-59); BILIRUBIN,DIRECT 0.9 mg/dL (0.0-0.4); BILIRUBIN,TOTAL 1.6 mg/dL (0.2-1.3); BLOOD UREA NITROGEN 13 mg/dL (7-21); CALCIUM 8.6 mg/dL (8.4-10.5); CARBON DIOXIDE 25 mmol/L (21-33); CHLORIDE 102 mmol/L (98-107); GFR AFRICAN-AMERICAN > 60; GLUCOSE,RANDOM 148 mg/dL (70-110); MAGNESIUM 1.6 mg/dL (1.7-2.2); POTASSIUM 3.3 mmol/L (3.6-5.0); SODIUM 137 mmol/L (132-148); TOTAL PROTEIN 6.2 g/dL (5.8-8.3)
[2017-05-07] MEDS ORDERED: Magnesium Oxide 400 mg Tab UD PO STA (10:38)
[2017-05-07] MEDS ORDERED: Potassium Chloride 20 mEq ER Tab PO STA (10:38)
[2017-05-07] MEDS: Digoxin 125 mcg (0.125 mg) Tab PO SCH (13:49)
[2017-05-07 13:56] VITALS: PULSE 80
[2017-05-07] MEDS ORDERED: Potassium & Sodium Phosphate PO SCH (14:00)
--- NOTE | 2017-05-07 15:04 | CP.PCM.PN ---
Subjective - Date & Time of Evaluation Date of Evaluation: 05/07/17 Time of Evaluation: 15:01 - Subjective Subjective: Medicine Progress Note: Pt seen and examined at bedside. Pt denies any acute overnight events. Pt states denies BM, but is passing flatus. Pt is OOB and ambulating. Pt tolerating diet. Pt denies CP, SOB, n/v/d, chills, fevers, abdominal pain, dysuria, fatigue, and dizziness. Objective - Vital Signs/Intake and Output Vital Signs (last 24 hours): Temp Pulse Resp BP Pulse Ox 97.4 F L 80 20 149/84 96 05/07/17 08:00 05/07/17 09:20 05/07/17 08:00 05/07/17 09:20 05/07/17 08:00 Intake and Output: 05/07/17 05/07/17 06:59 18:59 Intake Total 840 400 Output Total 165 90 Balance 675 310 - Medications Medications: Current Medications Acetaminophen (Tylenol 325mg Tab) 650 mg PO Q6H PRN PRN Reason: Fever >100.4 F Alprazolam (Xanax) 0.25 mg PO DAILY PRN; Protocol PRN Reason: Anxiety Stop: 05/11/17 16:31 Amlodipine Besylate (Norvasc) 10 mg PO DAILY [facility] Last Admin: 05/07/17 09:19 Dose: 10 mg Atenolol (Tenormin) 25 mg PO DAILY [facility] Last Admin: 05/07/17 09:20 Dose: 25 mg Digoxin (Lanoxin) 0.125 mg PO 1400 [facility] Last Admin: 05/07/17 13:49 Dose: 0.125 mg Famotidine (Pepcid) 20 mg PO 1000 [facility] Last Admin: 05/07/17 09:20 Dose: 20 mg Heparin Sodium (Porcine) (Heparin) 5,000 units SC Q12 [facility] PRN Reason: Protocol Last Admin: 05/07/17 09:19 Dose: 5,000 units Hydromorphone HCl (Dilaudid) 0.5 mg IVP Q3H PRN PRN Reason: Pain, moderate (4-7) Last Admin: 05/07/17 06:28 Dose: 0.5 mg Meropenem 1g/NS 100mL IVPB (Meropenem 1g/Ns 100ml Ivpb) 1 gm in 100 mls @ 100 mls/hr IVPB Q8 [facility] PRN Reason: Protocol Stop: 05/12/17 09:31 Last Admin: 05/07/17 13:49 Dose: 100 mls/hr Isosorbide Mononitrate (Imdur Er) 30 mg PO DAILY [facility] Last Admin: 05/07/17 09:19 Dose: 30 mg Nicotine (Nicoderm Cq) 1 patch TD DAILY [facility] Last Admin: 05/07/17 09:20 Dose: 1 patch Ondansetron HCl (Zofran Inj) 4 mg IVP Q4H PRN PRN Reason: Nausea/Vomiting Ondansetron HCl (Zofran Inj) 4 mg IVP ONCE PRN PRN Reason: Nausea/Vomiting Potassium Phos/Sodium Phos (Neutra-Phos) 1 pkt PO TID [facility] Stop: 05/07/17 23:59 Tramadol HCl (Ultram) 25 mg PO TID PRN PRN Reason: Pain, moderate (4-7) - Labs Labs: 05/07/17 08:20 05/07/17 08:20 PT 12.4 Seconds (9.9-11.8) H 05/04/17 13:35 INR 1.15 (0.93-1.08) H 05/04/17 13:35 APTT 28.5 Seconds (23.7-30.8) 05/04/17 13:35 - Constitutional Appears: No Acute Distress - Head Exam Head Exam: ATRAUMATIC, NORMOCEPHALIC - Eye Exam Eye Exam: EOMI, PERRL - ENT Exam ENT Exam: Mucous Membranes Moist - Neck Exam Neck Exam: Full ROM. absent: Lymphadenopathy, Tenderness, Thyromegaly - Respiratory Exam Respiratory Exam: Clear to Ausculation Bilateral. absent: Rales, Rhonchi, Wheezes - Cardiovascular Exam Cardiovascular Exam: RRR. absent: Diastolic murmur, Gallop, Rubs, Murmur - GI/Abdominal Exam GI & Abdominal Exam: Soft. absent: Distended, Tenderness, Mass, Rebound Additional comments: JERRI drain RLQ draining serosanguineous fluid, incision sites clean dry and intact consistent with laparoscopic cholecystectomy - Extremities Exam Extremities Exam: Normal Inspection - Neurological Exam Neurological Exam: Alert, Awake, Oriented x3 - Psychiatric Exam Psychiatric exam: Normal Affect, Normal Mood - Skin Skin Exam: Dry, Intact, Normal Color, Warm Assessment and Plan - Assessment and Plan (Free Text) Assessment: 66 year old male with past medical history of HTN, rheumatoid arthritis, COPD, hypercholesterolemia, recently admitted for pancreatitis presents to the ED for epigastric pain that started this morning. Abdominal US showed distended gallbladder, multiple gallstones/sludge balls, thickened gallbladder wall, gallbladder diverticuli, no CBD dilation. S/P Laparoscopic Cholecystectomy POD#2 Plan: 1. Acute Cholecystitis -VSS, afebrile -Leukocytosis WBC 14 -Abx: Merrem (day 3) -Pain control prn, Zofran prn nausea -Currently tolerating heart healthy diet -F/U OR cx and pathology -Encourage ambulation and ISS -ID on consult f/u recommendations -General surgery on consult, f/u recommendations -GI on consult, f/u recommendations Cont IV abx, monitor LFT's, possible dc on tuesday 2. Hypertension -Continue Norvasc and Atenolol -Will hold Lasix 3. Transaminitis -LFTs and T bili increased likely 2/2 post surgical, improved today, will continue to monitor -Avoid hepatotoxic agents -Holding crestor -Continue to monitor 4. Hx of Afib; Hx of SURAJ/cardioversion -EKG on admission - NSR with LAFB -Last echo 01/2017 showing EF of 60% -Continue digoxin -Cardiology on consult 5. Hx of Rheumatoid arthritis -On Actmera IV infusion therapy currently -Will hold methotrexate at this time -Continue folic acid 6. Hx of CAD, s/p 15 cardiac stents -Will hold ASA and Plavix -Continue Imdur -Cardiology consulted, f/u recommendations GI/DVT ppx -Pepcid 20mg PO daily -SCDs Pt discussed in detail with attending. Bill Gay, PGY1
--- NOTE | 2017-05-07 17:20 | PN ---
DATE: 05/07/2017 SUBJECTIVE: The patient is in bed, in no acute distress, nontoxic. PHYSICAL EXAMINATION VITAL SIGNS: Temperature is 97, blood pressure is 140/80, respiratory rate of 20, heart rate of 89. HEENT: Unremarkable. NECK: Supple. LUNGS: Decreased breath sounds. HEART: Normal S1 and S2. ABDOMEN: Soft, nontender. LABORATORY DATA: Reveals a white count of 14,000, hemoglobin of 13, platelets of 138, BUN of 13, creatinine of 0.5. LFTs are noted and urinalysis is noted. Serology is negative. Microbiology reveals the blood cultures are negative, urine cultures are negative and the bile cultures are pending. Review of medications reveals the patient to be on meropenem. ASSESSMENT AND PLAN: A 66-year-old male with sepsis due to acute cholecystitis and status post laparoscopic cholecystectomy post procedure day #2. History of hypertension, atrial fibrillation, dyslipidemia, history of pancreatitis with improving leukocytosis, currently on meropenem. We will follow with you. Azael Lara MD
--- NOTE | 2017-05-08 04:28 | CP.PCM.PN ---
Subjective - Date & Time of Evaluation Date of Evaluation: 05/08/17 Time of Evaluation: 04:24 - Subjective Subjective: PGY1 Note for Dr. Duarte HPI: Patient seen and examined at bedside. Doing well with no complaints at this time. Tolerating diet without difficulty. +flatus, +BM. Denies Chest pain, SOB, Fever, Chills, Nausea, Vomiting, Diarrhea. Objective - Vital Signs/Intake and Output Vital Signs (last 24 hours): Temp Pulse Resp BP Pulse Ox 98.5 F 66 18 125/75 97 05/08/17 00:00 05/08/17 00:00 05/08/17 00:00 05/08/17 00:00 05/08/17 00:00 Intake and Output: 05/07/17 05/08/17 18:59 06:59 Intake Total 400 Output Total 90 Balance 310 - Medications Medications: Current Medications Acetaminophen (Tylenol 325mg Tab) 650 mg PO Q6H PRN PRN Reason: Fever >100.4 F Alprazolam (Xanax) 0.25 mg PO DAILY PRN; Protocol PRN Reason: Anxiety Stop: 05/11/17 16:31 Amlodipine Besylate (Norvasc) 10 mg PO DAILY [facility] Last Admin: 05/07/17 09:19 Dose: 10 mg Atenolol (Tenormin) 25 mg PO DAILY [facility] Last Admin: 05/07/17 09:20 Dose: 25 mg Digoxin (Lanoxin) 0.125 mg PO 1400 [facility] Last Admin: 05/07/17 13:49 Dose: 0.125 mg Famotidine (Pepcid) 20 mg PO 1000 [facility] Last Admin: 05/07/17 09:20 Dose: 20 mg Heparin Sodium (Porcine) (Heparin) 5,000 units SC Q12 [facility] PRN Reason: Protocol Last Admin: 05/07/17 22:29 Dose: 5,000 units Hydromorphone HCl (Dilaudid) 0.5 mg IVP Q3H PRN PRN Reason: Pain, moderate (4-7) Last Admin: 05/07/17 22:34 Dose: 0.5 mg Meropenem 1g/NS 100mL IVPB (Meropenem 1g/Ns 100ml Ivpb) 1 gm in 100 mls @ 100 mls/hr IVPB Q8 [facility] PRN Reason: Protocol Stop: 05/12/17 09:31 Last Admin: 05/07/17 22:29 Dose: 100 mls/hr Isosorbide Mononitrate (Imdur Er) 30 mg PO DAILY [facility] Last Admin: 05/07/17 09:19 Dose: 30 mg Nicotine (Nicoderm Cq) 1 patch TD DAILY [facility] Last Admin: 05/07/17 09:20 Dose: 1 patch Ondansetron HCl (Zofran Inj) 4 mg IVP Q4H PRN PRN Reason: Nausea/Vomiting Ondansetron HCl (Zofran Inj) 4 mg IVP ONCE PRN PRN Reason: Nausea/Vomiting Tramadol HCl (Ultram) 25 mg PO TID PRN PRN Reason: Pain, moderate (4-7) - Labs Labs: 05/07/17 08:20 05/07/17 08:20 PT 12.4 Seconds (9.9-11.8) H 05/04/17 13:35 INR 1.15 (0.93-1.08) H 05/04/17 13:35 APTT 28.5 Seconds (23.7-30.8) 05/04/17 13:35 - Constitutional Appears: Well, Non-toxic, No Acute Distress - Head Exam Head Exam: ATRAUMATIC, NORMAL INSPECTION, NORMOCEPHALIC - Eye Exam Eye Exam: EOMI - ENT Exam ENT Exam: Mucous Membranes Moist - Respiratory Exam Respiratory Exam: Clear to Ausculation Bilateral, NORMAL BREATHING PATTERN - Cardiovascular Exam Cardiovascular Exam: REGULAR RHYTHM - GI/Abdominal Exam GI & Abdominal Exam: Soft, Tenderness (mild tenderness around incision sites. Dressing C/D/I), Normal Bowel Sounds. absent: Distended - Extremities Exam Extremities Exam: absent: Joint Swelling, Tenderness - Back Exam Back Exam: absent: CVA tenderness (L), CVA tenderness (R) - Neurological Exam Neurological Exam: Alert, Awake, Oriented x3 - Psychiatric Exam Psychiatric exam: Normal Affect, Normal Mood - Skin Skin Exam: Dry, Intact, Normal Color, Warm Assessment and Plan - Assessment and Plan (Free Text) Assessment: 66 y/o WM POD 3 S/p Lap dustin Plan: * Patient doing well, tolerating diet * Ok for D/c from surgical standpoint * Follow up in Dr. Duarte's office in 7-10 days
[2017-05-08] MEDS: Meropenem 1g/NS 100mL IVPB 1 GM/100 ML PIGGYBACK IVPB SCH ×3 (06:16→21:05)
[2017-05-08] MEDS: HYDROmorphone 0.5 mg/0.5 ml ISec IVP PRN ×3 (06:20→21:05)
[2017-05-08 07:23] LABS: ALB/GLOB RATIO 1.3 (1.1-1.8); BILIRUBIN,DIRECT 0.6 mg/dL (0.0-0.4); BILIRUBIN,TOTAL 1.2 mg/dL (0.2-1.3); TOTAL PROTEIN 6.1 g/dL (5.8-8.3)
[2017-05-08 08:55] LABS: BLOOD UREA NITROGEN 14 mg/dL (7-21); CALCIUM 8.9 mg/dL (8.4-10.5); CARBON DIOXIDE 26 mmol/L (21-33); CHLORIDE 101 mmol/L (98-107); GFR AFRICAN-AMERICAN > 60; GLUCOSE,RANDOM 166 mg/dL (70-110); SODIUM 135 mmol/L (132-148)
[2017-05-08 09:00] LABS: HEMATOCRIT 38.8 % (42.0-52.0); MEAN CELL VOLUME 90.9 fl (80.0-105.0); MEAN CORPUSCULAR HEMOGLOBIN 30.9 pg (25.0-35.0); MEAN PLATELET VOLUME 11.3 fl (7.0-11.0); RED CELL DISTRIBUTION WIDTH 14.6 % (11.5-14.5); WHITE BLOOD COUNT 13.1 10^3/ul (4.5-11.0)
[2017-05-08] MEDS: Digoxin 125 mcg (0.125 mg) Tab PO SCH (13:36)
--- NOTE | 2017-05-08 13:58 | CP.PCM.DIS ---
Provider - Provider Date of Admission: 05/04/17 15:26 Attending physician: Eunice Ramos MD Primary care physician: Leandro Alonzo MD Consults: GI: Gunner Surg: Duarte Cardio: Hugo ID: [email or web address] Time Spent in preparation of Discharge (in minutes): 45 Hospital Course - Lab Results Lab Results: Micro Results 05/04/17 18:20 Blood Blood Culture - Preliminary NO GROWTH AFTER 3 DAYS 05/04/17 18:00 Blood Blood Culture - Preliminary NO GROWTH AFTER 3 DAYS 05/05/17 15:02 Bile Gram Stain - Final 05/05/17 03:06 Urine Urine Culture - Final No Growth (<1,000 CFU/ML) Most Recent Lab Values WBC 13.1 10^3/ul (4.5-11.0) H 05/08/17 08:20 RBC 4.27 10^6/uL (3.5-6.1) 05/08/17 08:20 Hgb 13.2 g/dL (14.0-18.0) L 05/08/17 08:20 Hct 38.8 % (42.0-52.0) L 05/08/17 08:20 MCV 90.9 fl (80.0-105.0) 05/08/17 08:20 MCH 30.9 pg (25.0-35.0) 05/08/17 08:20 MCHC 34.0 g/dl (31.0-37.0) 05/08/17 08:20 RDW 14.6 % (11.5-14.5) H 05/08/17 08:20 Plt Count 159 10^3/uL (120.0-450.0) 05/08/17 08:20 MPV 11.3 fl (7.0-11.0) H 05/08/17 08:20 Gran % 94.2 % (50.0-68.0) H 05/05/17 06:00 Lymph % (Auto) 3.6 % (22.0-35.0) L 05/05/17 06:00 [place] % (Auto) 2.0 % (1.0-6.0) 05/05/17 06:00 Eos % (Auto) 0.1 % (1.5-5.0) L 05/05/17 06:00 Baso % (Auto) 0.1 % (0.0-3.0) 05/05/17 06:00 Gran # 18.51 (1.4-6.5) H 05/05/17 06:00 Lymph # 0.7 (1.2-3.4) L 05/05/17 06:00 [place] # 0.4 (0.1-0.6) 05/05/17 06:00 Eos # 0.0 (0.0-0.7) 05/05/17 06:00 Baso # 0.01 K/mm3 (0.0-2.0) 05/05/17 06:00 Neutrophils % (Manual) 95 % (50.0-70.0) H 05/04/17 13:35 Lymphocytes % (Manual) 3 % (22.0-35.0) L 05/04/17 13:35 Monocytes % (Manual) 2 % (1.0-6.0) 05/04/17 13:35 Platelet Evaluation Normal (NORMAL) 05/04/17 13:35 PT 12.4 Seconds (9.9-11.8) H 05/04/17 13:35 INR 1.15 (0.93-1.08) H 05/04/17 13:35 APTT 28.5 Seconds (23.7-30.8) 05/04/17 13:35 pO2 26 mm/Hg (30-55) L 05/04/17 18:20 VBG pH 7.38 (7.32-7.43) 05/04/17 18:20 VBG pCO2 46.0 (40-60) 05/04/17 18:20 VBG HCO3 27.2 mmol/l (21-28) 05/04/17 18:20 VBG Total CO2 28.6 mmol.L (22-28) H 05/04/17 18:20 VBG O2 Sat (Calc) 57.7 % (40-65) 05/04/17 18:20 VBG Base Excess 1.4 mmol/L (0.0-2.0) 05/04/17 18:20 VBG Potassium 3.9 mmol/L (3.6-5.2) 05/04/17 18:20 Sodium 136.0 mmol/L (132-148) 05/04/17 18:20 Chloride 102.0 mmol/L (98-107) 05/04/17 18:20 Glucose 158 mg/dl (75-110) H 05/04/17 18:20 Lactate 3.0 mmol/L (0.7-2.1) H 05/04/17 18:20 FiO2 21.0 % 05/04/17 18:20 Sodium 135 mmol/L (132-148) 05/08/17 08:46 Potassium 4.0 mmol/L (3.6-5.0) 05/08/17 08:46 Chloride 101 mmol/L (98-107) 05/08/17 08:46 Carbon Dioxide 26 mmol/L (21-33) 05/08/17 08:46 Anion Gap 12 (10-20) 05/08/17 08:46 BUN 14 mg/dL (7-21) 05/08/17 08:46 Creatinine 0.6 mg/dL (0.5-1.4) 05/08/17 08:46 Est GFR ( Amer) > 60 05/08/17 08:46 Est GFR (Non-Af Amer) > 60 05/08/17 08:46 Random Glucose 166 mg/dL (70-110) H 05/08/17 08:46 Calcium 8.9 mg/dL (8.4-10.5) 05/08/17 08:46 Phosphorus 2.0 mg/dL (2.5-4.5) L 05/07/17 08:20 Magnesium 1.6 mg/dL (1.7-2.2) L 05/07/17 08:20 Total Bilirubin 1.2 mg/dL (0.2-1.3) 05/08/17 06:00 Direct Bilirubin 0.6 mg/dL (0.0-0.4) H 05/08/17 06:00 GGT 753 U/L (8-78) H 05/06/17 13:39 AST 65 U/L (17-59) H D 05/08/17 06:00 ALT 140 U/L (7-56) H 05/08/17 06:00 Alkaline Phosphatase 131 U/L (38-126) H 05/08/17 06:00 Total Protein 6.1 g/dL (5.8-8.3) 05/08/17 06:00 Albumin 3.4 g/dL (3.0-4.8) 05/08/17 06:00 Globulin 2.7 gm/dL 05/08/17 06:00 Albumin/Globulin Ratio 1.3 (1.1-1.8) 05/08/17 06:00 Lipase 70 U/L (23-300) 05/04/17 13:35 Venous Blood Potassium 3.9 mmol/L (3.6-5.2) 05/04/17 18:20 Urine Color Yellow (YELLOW) 05/05/17 03:06 Urine Appearance Clear (CLEAR) 05/05/17 03:06 Urine pH 6.0 (4.7-8.0) 05/05/17 03:06 Ur Specific [place] 1.025 (1.005-1.035) 05/05/17 03:06 Urine Protein Trace mg/dL (<30 mg/dL) H 05/05/17 03:06 Urine Glucose (UA) Negative mg/dL (NEGATIVE) 05/05/17 03:06 Urine Ketones Trace mg/dL (NEGATIVE) H 05/05/17 03:06 Urine Blood Negative (NEGATIVE) 05/05/17 03:06 Urine Nitrate Negative (NEGATIVE) 05/05/17 03:06 Urine Bilirubin Negative (NEGATIVE) 05/05/17 03:06 Urine Urobilinogen 0.2 E.U./dL (<1 E.U./dL) 05/05/17 03:06 Ur Leukocyte Esterase Negative Barbi/uL (NEGATIVE) 05/05/17 03:06 Urine RBC 0 - 2 /hpf (0-2) 05/05/17 03:06 Urine WBC 0 - 2 /hpf (0-6) 05/05/17 03:06 Ur Epithelial Cells 0 - 2 /hpf (0-5) 05/05/17 03:06 Hepatitis A IgM Ab Negative (NEGATIVE) 05/04/17 18:20 Hep Bs Antigen Negative (NEGATIVE) 05/04/17 18:20 Hep B Core IgM Ab Negative (NEGATIVE) 05/04/17 18:20 Hepatitis C Antibody Negative (NEGATIVE) 05/04/17 18:20 Blood Type A POSITIVE 05/04/17 13:35 Antibody Screen Negative 05/04/17 13:35 BBK History Checked Patient has bt 05/04/17 13:35 - Hospital Course Hospital Course: 66 year old male with past medical hx of HTN, afib with hx of SURAJ/cardioversion , rheumatoid arthritis, COPD, hypercholesterolemia, recently admitted for pancreatitis presents to the ED for epigastric pain that started this morning. Patient stated that epigastric pain radiated to the back, constant in nature and rated it 8/10. Patient took tramadol at home with no relief. Pain is associated with nausea and 3 episodes of vomiting (brownish-yellow). Patient was recently admitted for gallstone pancreatitis. Admits to fevers and chills. Denies headaches, dizziness, cp, palpitations, sob, urinary symptoms, diarrhea, constipation. Patient states that he started IV infusion treatment (Actemra) for rheumatoid arthritis, was advised to complete 5 weeks of treatment before removing gallbladder, reports that currently 3 weeks in. In the ED, labs and imaging were obtained. Labs were significant for leukocytosis, elevated LFTs, and elevated bilirubin. Abdominal US showed distended gallbladder with tiny Rolotansky-Aschoff sinuses and diverticuli that could be associated with cholecystitis, gallstones, and sludge. MRCP showed gallstones, pericholecystic fluid, perihepatic fluid, and cystic pancreatic lesion. CXR was relatively negative. Pt was admitted for evaluation and treatment of acute cholecystitis. GI was consulted, who recommedned cholecystectomy with IOC. ID was consulted for IV abx recommendations. Surgery was consulted for cholecystectomy with IOC. Cardiology was consulted for cardiac clearance. On 05/05/17, pt went for cholecystectomy. Surgery was successful, GB was sent to pathology, and Raghavendra drain was placed. Post-operatively patient was continued on IV abx, with a daily decrease in WBC and LFTs. Pt was continued on his home medications for HTN , a-fib, rheumatoid arthritis, and CAD. On post op day 2, Raghavendra drain was removed as serosanguineous fluid was minimal. Today, patient was seen and examined at bedside. Pt states that pain is being well controlled. Pt has not had BM, but reports passing flatus. Pt tolerates diet well. Pt is OOB and ambulating well. Since WBC and LFT's were downtrending and patient was clinically stable, the decision was made to discharge the patient. Pt was given PO Augmentin for 7 days as well as pain medication as needed. Pt was instructed to resume his home medications and to follow up as an outpatient. Discharge Exam - Head Exam Head Exam: ATRAUMATIC, NORMAL INSPECTION, NORMOCEPHALIC - Eye Exam Eye Exam: EOMI, PERRL - ENT Exam ENT Exam: Mucous Membranes Moist - Neck Exam Neck exam: Full Rom - Respiratory Exam Respiratory Exam: Clear to PA & Lateral. absent: Rales, Rhonchi, Wheezes, Respiratory Distress - Cardiovascular Exam Cardiovascular Exam: RRR, +S1, +S2. absent: Diastolic murmur, Gallop, Rubs, Systolic Murmur - GI/Abdominal Exam GI & Abdominal Exam: Soft. absent: Distended, Guarding, Rebound, Rigid, Tenderness Additional comments: Raghavendra drain removed. Incisions clean, dry, and intact. - Extremities Exam Extremities exam: normal inspection - Neurological Exam Neurological exam: Alert, Oriented x3 - Psychiatric Exam Psychiatric exam: Normal Affect, Normal Mood - Skin Skin Exam: Dry, Intact, Normal Color, Warm Discharge Plan - Discharge Medications Prescriptions: Amoxicillin/Clavulanate [Augmentin 875 MG-125 MG] 1 tab PO BID #7 tab - Follow Up Plan Condition: GUARDED Disposition: HOME/ ROUTINE Instructions: Cholecystitis (DC), Cholecystitis (GEN) Additional Instructions: 1. Follow up with PMD within 1 week 2. Follow up with surgery within 1 week 3. Follow up with GI within 1 week for colonoscopy and EUS 4. Complete course of oral antibiotics 5. Resume medications as prescribed 6. Return to ED if symptoms worsen Referrals: Leandro Alonzo MD [Primary Care Provider] - Sotero Duarte MD [Staff Provider] - Evelin Martino MD [Medical Doctor] - Gracia Arias MD [Staff Provider] - Azael Lara MD [Staff Provider] -
--- NOTE | 2017-05-08 14:36 | PN ---
DATE: 05/08/2017 SUBJECTIVE: The patient is in bed, in no acute distress, nontoxic. PHYSICAL EXAMINATION: VITAL SIGNS: Temperature is 97, blood pressure is 120/80, respiratory rate of 18. HEENT: Unremarkable. NECK: Supple. LUNGS: Decreased breath sounds. HEART: Normal S1 and S2. ABDOMEN: Soft. LABORATORY DATA: Reveals a white count of 13,000, hemoglobin of 13, and platelets of 159. Chemistries reveals a BUN of 14 and creatinine of 0.6. Urinalysis is noted and serology is negative. Microbiology reveals the blood cultures are negative. Bile cultures are pending. ASSESSMENT AND PLAN: This is a [id number], who was seen earlier today in [facility], bed 2, doing well, had gas, initially admitted with sepsis due to acute cholecystitis, status post laparoscopic cholecystectomy, post-procedure day #3 in a patient with history of hypertension, atrial fibrillation, dyslipidemia, history of pancreatitis, currently on meropenem, white count improving. We will check on the pathology, which is pending. Azael Lara MD
[2017-05-08 18:50] VITALS: BP 129/86; PULSE 77; RESP 20; TEMP 97.8; O2SAT 96
== END 2017-05-08 22:33 | disposition home or self-care (01) | DRG 419 ==
LOC: ED 12:47 → ERH 15:26 → 5RSO 17:48
PROVIDERS: ADMIT Internal Medicine; ATTEND Hospitalist
PROC: 0FT44ZZ Resection of Gallbladder, Percutaneous Endoscopic Approach (ICD-10-PCS; principal; 2017-05-05 13:30)
DX: K80.00 Calculus of gallbladder with acute cholecystitis without obstruction (principal); I48.91 Unspecified atrial fibrillation; J44.9 Chronic obstructive pulmonary disease, unspecified; I10 Essential (primary) hypertension; E78.00 Pure hypercholesterolemia, unspecified; M06.9 Rheumatoid arthritis, unspecified; I25.10 Atherosclerotic heart disease of native coronary artery without angina pectoris; F17.290 Nicotine dependence, other tobacco product, uncomplicated; Z79.82 Long term (current) use of aspirin; Z79.02 Long term (current) use of antithrombotics/antiplatelets; Z95.5 Presence of coronary angioplasty implant and graft; Z89.422 Acquired absence of other left toe(s)

== ENCOUNTER 2017-07-22 07:26 | Day surgery (SDC) | payer MEDICARE ==
[2017-07-22 08:09] LABS: BASO # 0.04 K/mm3 (0.0-2.0); BASO % 0.2 % (0.0-3.0); EOS # 0.2 (0.0-0.7); EOS % 1.2 % (1.5-5.0); GRAN # 11.89 (1.4-6.5); GRAN % 72.9 % (50.0-68.0); HEMATOCRIT 39.2 % (42.0-52.0); LYMPH # 2.7 (1.2-3.4); LYMPH % 16.8 % (22.0-35.0); MEAN CELL VOLUME 91.6 fl (80.0-105.0); MEAN CORPUSCULAR HEMOGLOBIN 31.5 pg (25.0-35.0); MEAN CORPUSCULAR HGB CONC 34.4 g/dl (31.0-37.0); MONO # 1.5 (0.1-0.6); MONO % 8.9 % (1.0-6.0); RED CELL DISTRIBUTION WIDTH 13.9 % (11.5-14.5); WHITE BLOOD COUNT 16.3 10^3/ul (4.5-11.0)
[2017-07-22 08:20] LABS: ALB/GLOB RATIO 1.1 (1.1-1.8); ALKALINE PHOSPHATASE 90 U/L (38-126); ALT/SGPT 48 U/L (7-56); AMYLASE 34 U/L (35-125); AST/SGOT 32 U/L (17-59); BILIRUBIN,TOTAL 1.1 mg/dL (0.2-1.3); BLOOD UREA NITROGEN 15 mg/dL (7-21); CALCIUM 9.4 mg/dL (8.4-10.5); CARBON DIOXIDE 24 mmol/L (21-33); CHLORIDE 100 mmol/L (98-107); GFR AFRICAN-AMERICAN > 60; GLUCOSE,RANDOM 140 mg/dL (70-110); LIPASE 32 U/L (23-300); POTASSIUM 3.9 mmol/L (3.6-5.0); SODIUM 136 mmol/L (132-148)
[2017-07-22 08:23] LABS: INR 1.36 (0.93-1.08)
[2017-07-22] MEDS ORDERED: Lidocaine 1% Inj (20ml) ONE ×2 (09:05→10:17)
[2017-07-22] MEDS ORDERED: Midazolam 2 MG/2 ML VIAL ONE (09:05)
[2017-07-22] MEDS ORDERED: Etomidate 20 mg/10ml Inj IV ONE ×2 (09:05→10:06)
[2017-07-22] MEDS ORDERED: Propofol 10 mg/ml Inj (20 ML) ONE ×2 (09:06→10:22)
[2017-07-22] MEDS ORDERED: ePHEDrine 50 mg/ml Inj ONE (09:48)
[2017-07-22] MEDS ORDERED: Sodium Chloride 0.9% 1,000 ML IV SCH (11:30)
[2017-07-22 14:03] VITALS: BP 91/37; PULSE 68; RESP 16; TEMP 97.5; O2SAT 99
== END 2017-07-22 13:08 | disposition home or self-care (01) ==
LOC: ENDO 07:26
PROVIDERS: ATTEND Internal Medicine Gastroenterology
DX: K86.2 Cyst of pancreas (principal); K31.7 Polyp of stomach and duodenum; K44.9 Diaphragmatic hernia without obstruction or gangrene; K86.1 Other chronic pancreatitis; K21.9 Gastro-esophageal reflux disease without esophagitis; K83.8 Other specified diseases of biliary tract; K57.30 Diverticulosis of large intestine without perforation or abscess without bleeding; K64.8 Other hemorrhoids; D12.0 Benign neoplasm of cecum; D12.2 Benign neoplasm of ascending colon; D12.4 Benign neoplasm of descending colon
CPT/HCPCS: 36415; 43239; 43259; 45385; 80053; 82150; 82977; 83690; 85025; 85610; 85730; 88305; 88312; 88342; J2250; J2405; J2704; J3010; J7040 ×2

== ENCOUNTER 2017-09-05 21:07 | Inpatient (IN) | payer MEDICARE ==
[2017-09-05 21:08] VITALS: BMI 31.0
--- NOTE | 2017-09-05 22:26 | ED PDOC ---
Arrival/HPI - General Chief Complaint: Fever Time Seen by Provider: 09/05/17 21:36 Historian: Patient, EMS - History of Present Illness Narrative History of Present Illness (Text): 09/05/17 22:26 Blanco Russell is a 67 year old male, whose past medical history includes hypertension, rheumatoid arthritis, COPD, hyperlipidemia, pancreatitis, CAD with multiple coronary stents, and cholecystectomy, who presents to the Emergency department for generalized weakness and chills. Patient states tonight while at work he began feeling weak with associated subjective fever and chills. Patient was given Tylenol and EMS was notified. Patient nottes while en route to the hospital he had 3 episodes of vomiting and felt diaphoretic. Patient denies any shortness of breath, diarrhea, urinary symptoms , back pain, neck pain, headache, dizziness, or any other complaints. Time/Duration: Other (tonight) Symptom Onset: Gradual Symptom Course: Unchanged Activities at Onset: Light Context: Work Past Medical History - Provider Review Nursing Documentation Reviewed: Yes - Infectious Disease Hx of Infectious Diseases: None - Tetanus Immunization Tetanus Immunization: Unknown - Cardiac Hx Cardiac Disorders: Yes Hx Cardiac Arrhythmia: Yes (afib) Hx Hypertension: Yes Hx Pacemaker: No - Pulmonary Hx Respiratory Disorders: Yes Hx Bronchitis: Yes Hx Chronic Obstructive Pulmonary Disease (COPD): Yes Hx Pneumonia: Yes - Neurological Hx Neurological Disorder: No - HEENT Hx HEENT Disorder: No - Renal Hx Renal Disorder: No - Endocrine/Metabolic Hx Endocrine Disorders: No - Hematological/Oncological Hx Blood Disorders: No - Musculoskeletal/Rheumatological Hx Musculoskeletal Disorders: Yes (RA) Hx Arthritis: Yes - Gastrointestinal Hx Gastrointestinal Disorders: Yes Hx Gall Bladder Disease: Yes (gallstones) Hx Pancreatitis: Yes - Genitourinary/Gynecological Hx Genitourinary Disorders: No - Psychiatric Hx Anxiety: Yes Hx Substance Use: No - Surgical History Other/Comment: 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 SURAJ. R foot surgery. R hand surgery - Anesthesia Hx Anesthesia: Yes Hx Anesthesia Reactions: No Hx Malignant Hyperthermia: No - Suicidal Assessment Feels Threatened In Home Enviroment: No Family/Social History - Physician Review Nursing Documentation Reviewed: Yes Family/Social History: Unknown Family HX Smoking Status: Heavy Smoker > 10 Cigarettes Daily Hx Alcohol Use: No Hx Substance Use: No Allergies/Home Meds Allergies/Adverse Reactions: Allergies No Known Allergies Allergy (Verified 05/04/17 13:00) Home Medications: Home Meds Medication Instructions Recorded Confirmed Atenolol [Tenormin] 25 mg PO DAILY 01/21/15 09/05/17 Digoxin 0.125 mg PO DAILY 01/21/15 09/05/17 Ezetimibe [Zetia] 10 mg PO DAILY 01/21/15 09/05/17 Furosemide [Lasix] 40 mg PO DAILY 01/21/15 09/05/17 Isosorbide Mononitrate ER [Imdur 30 mg PO DAILY 01/21/15 09/05/17 ER] Rosuvastatin Calcium [Crestor] 20 mg PO DAILY 01/21/15 09/05/17 amLODIPine [Norvasc] 10 mg PO DAILY 01/21/15 09/05/17 ALPRAZolam [Xanax] 0.25 mg PO DAILY PRN 01/31/15 09/05/17 Omeprazole [Prilosec] 40 mg PO DAILY 01/31/15 09/05/17 Potassium Chloride [Klor-Con 10] 10 meq PO DAILY 02/28/15 09/05/17 Aspirin [Aspirin EC] 81 mg PO DAILY 01/05/17 09/06/17 Folic Acid 1 mg PO DAILY 01/05/17 09/05/17 Methotrexate 15 mg PO WED 01/05/17 09/05/17 Multivit-Min/FA/Lycopen/Lutein 1 tab PO DAILY 01/05/17 09/05/17 [Centrum Silver Tablet] traMADol [Ultram] 50 mg PO QID PRN 01/05/17 09/05/17 metFORMIN [glucOPHAGE] 500 mg PO DAILY 06/17/17 09/05/17 Apixaban [Eliquis] 5 mg PO BID 09/06/17 09/06/17 Review of Systems - Physician Review All systems were reviewed & negative as marked: Yes - Review of Systems Constitutional: Fevers (+subjective fever), Other (+generalized weakness) Eyes: Normal ENT: Normal Respiratory: Normal. absent: SOB, Cough Cardiovascular: Normal. absent: Chest Pain Gastrointestinal: Vomiting Genitourinary Male: Normal. absent: Dysuria, Frequency, Hematuria, Urinary Output Changes Musculoskeletal: Normal. absent: Back Pain, Neck Pain Skin: Normal Neurological: Normal. absent: Headache, Dizziness Endocrine: Diaphoresis Hemo/Lymphatic: Normal Psychiatric: Normal Physical Exam Vital Signs Reviewed: Yes Vital Signs Temp Pulse Resp BP Pulse Ox 09/06/17 00:18 97.3 F L 75 23 95/61 L 94 L 09/05/17 23:43 97.5 F L 77 20 107/61 94 L 09/05/17 21:28 97.5 F L 82 18 125/52 L 94 L Temperature: Afebrile Blood Pressure: Normal Pulse: Regular Respiratory Rate: Normal Appearance: Positive for: Well-Appearing, Non-Toxic, Comfortable Pain Distress: None Mental Status: Positive for: Alert and Oriented X 3 Finger Stick Blood Glucose: 127 - Systems Exam Head: Present: Atraumatic, Normocephalic Pupils: Present: PERRL Extroacular Muscles: Present: EOMI Conjunctiva: Present: Normal Mouth: Present: Moist Mucous Membranes Neck: Present: Normal Range of Motion Respiratory/Chest: Present: Clear to Auscultation, Good Air Exchange. No: Respiratory Distress, Accessory Muscle Use Cardiovascular: Present: Regular Rate and Rhythm, Normal S1, S2. No: Murmurs Abdomen: Present: Normal Bowel Sounds. No: Tenderness, Distention, Peritoneal Signs Back: Present: Normal Inspection Upper Extremity: Present: Normal Inspection. No: Cyanosis, Edema Lower Extremity: Present: Normal Inspection. No: Edema Neurological: Present: GCS=15, CN II-XII Intact, Speech Normal Skin: Present: Warm, Dry, Normal Color. No: Rashes Psychiatric: Present: Alert, Oriented x 3, Normal Insight, Normal Concentration Medical Decision Making ED Course and Treatment: 09/05/17 22:26 Impression: 67 year old male complaining of generalized weakness, subjective fever, chills , vomiting, and diaphoresis tonight. Plan: -- EKG -- Chest X-ray -- Labs, VBG, blood cultures -- Urinalysis, urine cultures -- IV fluids -- Reassess and disposition Prior Visits: Notes and results from previous visits were reviewed. Progress Notes: Reviewed EKG, NSR at 81. PAC. Incomplete RBBB. Non-specific ST/T wave changes. 09/05/17 22:56 Pt states he is now experiencing chest pain radiating to his left arm. Repeat EKG performed, NSR at 70 bpm. Incomplete RBBB. LAHB. Non-specific ST/T wave changes. Unchanged from EKG performed earlier. 09/05/17 23:15 Chest X-ray reviewed, slightly increased interstitial markings. 09/06/17 00:06 Case discussed with medical staff coordinator semiconductor packages leak tester, who is aware and agrees with plan. 09/06/17 00:[address] Jimenez, who is aware and agrees with plan. Accepts pt in to hospital for further evaluation. Pt will go to Telemetry observation for chest pain, UTI, and sepsis. - Lab Interpretations Lab Results: 09/05/17 21:45 09/05/17 21:45 Lab Results 09/05/17 23:05: pO2 45, VBG pH 7.46 H, VBG pCO2 33.0 L, VBG HCO3 23.5, VBG Total CO2 24.5, VBG O2 Sat (Calc) 90.7 H, VBG Base Excess 0.3, VBG Potassium 3.5 L, Glucose 148 H, Lactate 4.3 H*, FiO2 21.0, Sodium 139.0, Chloride 102.0, Venous Blood Potassium 3.5 L 09/05/17 23:00: Urine Color Yellow, Urine Appearance Sl cloudy, Urine pH 6.0, Ur Specific [place] 1.025, Urine Protein Trace H, Urine Glucose (UA) Negative, Urine Ketones Negative, Urine Blood Negative, Urine Nitrate Positive H, Urine Bilirubin Negative, Urine Urobilinogen 0.2, Ur Leukocyte Esterase Small H, Urine RBC 0 - 2, Urine WBC 10 - 15, Ur Epithelial Cells 0 - 2, Urine Bacteria Many 09/05/17 21:45: WBC 9.8 D, RBC 4.51, Hgb 13.7 L, Hct 41.1 L, MCV 91.1, MCH 30.4 , MCHC 33.3, RDW 14.4, Plt Count 243, MPV 10.3 09/05/17 21:45: Sodium 137, Potassium 3.9, Chloride 102, Carbon Dioxide 20 L, Anion Gap 20, BUN 16, Creatinine 1.0, Est GFR ( Amer) > 60, Est GFR (Non- Af Amer) > 60, Random Glucose 121 H, Calcium 9.9, Total Bilirubin 0.5, AST 82 H D, ALT 74 H, Alkaline Phosphatase 119, Lactate Dehydrogenase 816 H, Total Creatine Kinase 71, Troponin I 0.01 D, Total Protein 7.5, Albumin 4.1, Globulin 3.4, Albumin/Globulin Ratio 1.2, Lipase 48 09/05/17 21:45: PT 17.1 H, INR 1.49 H, APTT 29.9 - RAD Interpretation Radiology Orders: 09/05/17 22:26 CHEST PORTABLE [RAD] Stat - EKG Interpretation Interpreted by ED Physician: Yes Type: 12 lead EKG - Medication Orders Current Medication Orders: Atorvastatin Calcium (Lipitor) 80 mg PO DIN OLMAN Digoxin (Lanoxin) 0.125 mg PO 1400 OLMAN Folic Acid (Folic Acid) 1 mg PO DAILY OLMAN Sodium Chloride (Sodium Chloride 0.9%) 1,000 mls @ 150 mls/hr IV .Q6H40M OLMAN Last Admin: 09/05/17 23:03 Dose: 150 mls/hr eMAR Start Stop Document 09/05/17 23:03 SF (Rec: 09/05/17 23:03 SF [id number]) Intravenous Solution Start Date 09/05/17 Start Time 23:03 Nitroglycerin/Dextrose (Nitroglycerin 50 Mg/250 Ml D5w) 50 mg in 250 mls @ 6 mls/hr IV .Q24H PRN; Protocol; 20 MCG/MIN PRN Reason: Titrate per protocol Sodium Chloride (Sodium Chloride 0.9%) 500 mls @ 500 mls/hr IV .Q1H STA Stop: 09/06/17 00:50 Last Admin: 09/05/17 23:56 Dose: 500 mls/hr eMAR Start Stop Document 09/05/17 23:56 ERENDIRA (Rec: 09/05/17 23:57 [place]ENDIRA [facility] [id number] Intravenous Solution Start Date 09/05/17 Start Time 23:56 Sodium Chloride (Sodium Chloride 0.9%) 1,000 mls @ 999 mls/hr IV .Q1H1M STA Stop: 09/06/17 00:52 Ceftriaxone Sodium (Rocephin 1 Gram Ivpb) 1 gm in 100 mls @ 200 mls/hr IV ONCE STA PRN Reason: Protocol Stop: 09/06/17 00:50 Nitroglycerin (Nitro-Bid 2% Oint) 1 ea TOP ONCE STA Stop: 09/06/17 00:42 Ondansetron HCl (Zofran Inj) 4 mg IVP Q6H PRN PRN Reason: Nausea/Vomiting Pantoprazole Sodium (Protonix Ec Tab) 40 mg PO ACB OLMAN - Scribe Statement The provider has reviewed the documentation as recorded by the Scribe Jess Miller All medical record entries made by the Scribe were at my direction and personally dictated by me. I have reviewed the chart and agree that the record accurately reflects my personal performance of the history, physical exam, medical decision making, and the department course for this patient. I have also personally directed, reviewed, and agree with the discharge instructions and disposition. Disposition/Present on Arrival - Present on Arrival Any Indicators Present on Arrival: No History of DVT/PE: No History of Uncontrolled Diabetes: No Urinary Catheter: No History of Decub. Ulcer: No History Surgical Site Infection Following: None - Disposition Have Diagnosis and Disposition been Completed?: Yes Diagnosis: Chest pain, UTI (urinary tract infection), Sepsis Disposition: HOSPITALIZED Disposition Time: 00:45 Patient Plan: Observation Condition: STABLE Discharge Instructions (ExitCare): Chest Pain (ED), Sepsis (ED) Referrals: Irina Omer, [Primary Care Provider] - Follow up with primary Forms: [employer] (Turkish)
[2017-09-05] MEDS ORDERED: Sodium Chloride 0.9% 1,000 ML IV SCH (22:30)
[2017-09-05 22:36] LABS: HEMOGLOBIN 13.7 g/dL (14.0-18.0); MEAN CELL VOLUME 91.1 fl (80.0-105.0); MEAN CORPUSCULAR HEMOGLOBIN 30.4 pg (25.0-35.0); MEAN CORPUSCULAR HGB CONC 33.3 g/dl (31.0-37.0); MEAN PLATELET VOLUME 10.3 fl (7.0-11.0); RBC 4.51 10^6/uL (3.5-6.1); RED CELL DISTRIBUTION WIDTH 14.4 % (11.5-14.5); WHITE BLOOD COUNT 9.8 10^3/ul (4.5-11.0)
[2017-09-05 22:47] LABS: INR 1.49 (0.93-1.08); PARTIAL THROMBOPLASTIN TIME 29.9 Seconds (25.1-36.5); PROTHROMBIN TIME 17.1 SECONDS (9.4-12.5)
[2017-09-05 23:00] LABS: ALB/GLOB RATIO 1.2 (1.1-1.8); ALBUMIN 4.1 g/dL (3.0-4.8); ALT/SGPT 74 U/L (7-56); AST/SGOT 82 U/L (17-59); BLOOD UREA NITROGEN 16 mg/dL (7-21); CALCIUM 9.9 mg/dL (8.4-10.5); GFR AFRICAN-AMERICAN > 60; GFR NON-AFRICAN AMERICAN > 60; LIPASE 48 U/L (23-300)
[2017-09-05 23:08] LABS: TROPONIN I 0.01 ng/mL
[2017-09-05 23:25] LABS: VENOUS BLOOD GAS BASE EXCESS 0.3 mmol/L (0.0-2.0); VENOUS BLOOD GAS PO2 45 mm/Hg (30-55); VENOUS BLOOD PH 7.46 (7.32-7.43)
[2017-09-05 23:36] LABS: URINE BILIRUBIN NEGATIVE (NEGATIVE); URINE BLOOD NEGATIVE (NEGATIVE); URINE GLUCOSE (UA) NEGATIVE (NEGATIVE); URINE LEUKOCYTE ESTERASE SMALL Leu/uL (NEGATIVE); URINE NITRATE POSITIVE (NEGATIVE); URINE PROTEIN TRACE mg/dL (<30 mg/dL); URINE UROBILINOGEN 0.2 E.U./dL (<1 E.U./dL)
[2017-09-05] MEDS ORDERED: Nitroglycerin 50mg in D5W 50 MG/250 ML BOTTLE IV PRN (23:48)
[2017-09-05 23:49] LABS: URINE APPEARANCE SL CLOUDY (CLEAR); URINE COLOR YELLOW (YELLOW)
[2017-09-05] MEDS: Sodium Chloride 0.9% 500 ML IV STA (23:56)
[2017-09-05 23:57] LABS: URINE BACTERIA MANY (NEG); URINE EPITHELIAL CELLS 0 - 2 /hpf (0-5); URINE RBC 0 - 2 /hpf (0-2)
[2017-09-06] MEDS: cefTRIAXone 1 gm 1 GM/100 ML BAG IV STA ×3 (00:42→03:58)
--- NOTE | 2017-09-06 00:53 | CP.PCM.HP ---
History of Present Illness - History of Present Illness History of Present Illness: H&P for HospitalistBilly PGY2 This is a 67yo male with PMH of CAD s/p 15 stents, COPD, GERD, NIDDM, rheumatoid arthritis who came to ED for chills and vomiting x 1 day. Patient reports he was at work when he suddenly began to feel "severe chills". He says that he usually feels this way when he is getting a cold. He took 2 Tylenol and he did not feel better so he decided to come to the ED. On the way to the hospital he became nauseous and vomited 5x. The emesis was described as non- bilious and non-bloody. The nausea has now resolved after that episode. While being evaluated in the ED, patient reports having some chest pain that is located on the L chest and radiates to his arm. EKG showed sinus rhythm with PACs and troponin was 0.01. He was also noted to be hypotensive with elevated lactate. Code sepsis was called. CXR was negative and patient was found to have UTI. He denies shortness of breath, fever, numbness/tingling, dysuria/hematuria , headache, vision changes or dizziness. Past medical history: CAD s/p 15 stents, COPD, GERD, NIDDM, rheumatoid arthritis Past surgical history: multiple PCI, cholecystectomy, Toe amputation, ACL repair Home meds: As per MAR Allergies: NKDA Social history: Smokes 1 pack of cigars x 50yrs, denies EtOH or drug use. 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 Payne/Hugo Present on Admission - Present on Admission Any Indicators Present on Admission: No Review of Systems - Review of Systems All systems: reviewed and no additional remarkable complaints except Review of Systems: 12 Point ROS reviewed as per HPI. Positive for chest pain, nausea, and chills. Past Patient History - Infectious Disease Hx of Infectious Diseases: None - Tetanus Immunizations Tetanus Immunization: Unknown - Past Social History Smoking Status: Heavy Smoker > 10 Cigarettes Daily Alcohol: None Drugs: Denies - CARDIAC Hx Cardiac Disorders: Yes Hx Cardia Arrhythmia: Yes (afib) Hx Hypertension: Yes Hx Pacemaker: No - PULMONARY Hx Respiratory Disorders: Yes Hx Bronchitis: Yes Hx Chronic Obstructive Pulmonary Disease (COPD): Yes Hx Pneumonia: Yes - NEUROLOGICAL Hx Neurological Disorder: No - HEENT Hx HEENT Problems: No - RENAL Hx Chronic Kidney Disease: No - ENDOCRINE/METABOLIC Hx Endocrine Disorders: No - HEMATOLOGICAL/ONCOLOGICAL Hx Blood Disorders: No - MUSCULOSKELETAL/RHEUMATOLOGICAL Hx Musculoskeletal Disorders: Yes (RA) Hx Arthritis: Yes - GASTROINTESTINAL Hx Gastrointestinal Disorders: Yes Hx Gall Bladder Disease: Yes (gallstones) Hx Pancreatitis: Yes - GENITOURINARY/GYNECOLOGICAL Hx Genitourinary Disorders: No - PSYCHIATRIC Hx Anxiety: Yes Hx Substance Use: No - SURGICAL HISTORY Other/Comment: 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 SURAJ. R foot surgery. R hand surgery - ANESTHESIA Hx Anesthesia: Yes Hx Anesthesia Reactions: No Hx Malignant Hyperthermia: No Meds Allergies/Adverse Reactions: Allergies Allergy/AdvReac Type Severity Reaction Status Date / Time No Known Allergies Allergy Verified 05/04/17 13:00 Physical Exam - Constitutional Appears: No Acute Distress - Head Exam Head Exam: ATRAUMATIC, NORMAL INSPECTION, NORMOCEPHALIC - Eye Exam Eye Exam: Normal appearance, PERRL Pupil Exam: NORMAL ACCOMODATION, PERRL - ENT Exam ENT Exam: Mucous Membranes Dry - Respiratory Exam Respiratory Exam: Clear to Auscultation Bilateral, NORMAL BREATHING PATTERN. absent: Rhonchi, Wheezes, Respiratory Distress, Stridor - Cardiovascular Exam Cardiovascular Exam: REGULAR RHYTHM, +S1, +S2. absent: Gallop, Rubs, Systolic Murmur - GI/Abdominal Exam GI & Abdominal Exam: Normal Bowel Sounds, Soft. absent: Firm, Mass, Tenderness - Extremities Exam Extremities exam: Positive for: normal inspection. Negative for: calf tenderness, pedal edema - Neurological Exam Neurological exam: Alert, CN II-XII Intact, Oriented x3 - Psychiatric Exam Psychiatric exam: Normal Affect, Normal Mood - Skin Skin Exam: Dry, Intact, Normal Color, Warm Results - Vital Signs Recent Vital Signs: Last Vital Signs Temp 97.3 F L 09/06/17 00:18 Pulse 75 09/06/17 00:18 Resp 23 09/06/17 00:18 BP 95/61 L 09/06/17 00:18 Pulse Ox 94 L 09/06/17 00:18 - Labs Result Diagrams: 09/05/17 21:45 09/05/17 21:45 Labs: Laboratory Results - last 24 hr 0109/05/17 09/05/17 21:45 21:45 21:45 WBC 9.8 D RBC 4.51 Hgb 13.7 L Hct 41.1 L MCV 91.1 MCH 30.4 MCHC 33.3 RDW 14.4 Plt Count 243 MPV 10.3 PT 17.1 H INR 1.49 H APTT 29.9 pO2 VBG pH VBG pCO2 VBG HCO3 VBG Total CO2 VBG O2 Sat (Calc) VBG Base Excess VBG Potassium Glucose Lactate FiO2 Sodium 137 Potassium 3.9 Chloride 102 Carbon Dioxide 20 L Anion Gap 20 BUN 16 Creatinine 1.0 Est GFR ( Amer) > 60 Est GFR (Non-Af Amer) > 60 Random Glucose 121 H Calcium 9.9 Total Bilirubin 0.5 AST 82 H D ALT 74 H Alkaline Phosphatase 119 Lactate Dehydrogenase 816 H Total Creatine Kinase 71 Troponin I 0.01 D Total Protein 7.5 Albumin 4.1 Globulin 3.4 Albumin/Globulin Ratio 1.2 Lipase 48 Venous Blood Potassium Urine Color Urine Appearance Urine pH Ur Specific [place] Urine Protein Urine Glucose (UA) Urine Ketones Urine Blood Urine Nitrate Urine Bilirubin Urine Urobilinogen Ur Leukocyte Esterase Urine RBC Urine WBC Ur Epithelial Cells Urine Bacteria 09/05/17 09/05/17 23:00 23:05 WBC RBC Hgb Hct MCV MCH MCHC RDW Plt Count MPV PT INR APTT pO2 45 VBG pH 7.46 H VBG pCO2 33.0 L VBG HCO3 23.5 VBG Total CO2 24.5 VBG O2 Sat (Calc) 90.7 H VBG Base Excess 0.3 VBG Potassium 3.5 L Glucose 148 H Lactate 4.3 H* FiO2 21.0 Sodium 139.0 Potassium Chloride 102.0 Carbon Dioxide Anion Gap BUN Creatinine Est GFR ( Amer) Est GFR (Non-Af Amer) Random Glucose Calcium Total Bilirubin AST ALT Alkaline Phosphatase Lactate Dehydrogenase Total Creatine Kinase Troponin I Total Protein Albumin Globulin Albumin/Globulin Ratio Lipase Venous Blood Potassium 3.5 L Urine Color Yellow Urine Appearance Sl cloudy Urine pH 6.0 Ur Specific [place] 1.025 Urine Protein Trace H Urine Glucose (UA) Negative Urine Ketones Negative Urine Blood Negative Urine Nitrate Positive H Urine Bilirubin Negative Urine Urobilinogen 0.2 Ur Leukocyte Esterase Small H Urine RBC 0 - 2 Urine WBC 10 - 15 Ur Epithelial Cells 0 - 2 Urine Bacteria Many Assessment & Plan - Assessment and Plan (Free Text) Assessment: This is a 67yo male with PMH of CAD s/p 15 stents, COPD, GERD, NIDDM, rheumatoid arthritis who was found to have UTI and lactic acidosis. Code sepsis called. Patient also complaining of chest pain r/o ACS. Plan: 1. Chest pain r/o ACS - Hx of CAD, HTN - EKG showed sinus rhythm - Trop 0.01 will trend - Cardio consulted - Will hold BP meds for hypotension - Continue home meds: Digoxin, ASA, Eliquis, Zetia, Crestor - Will check Dig level 2. Sepsis - secondary to UTI r/o influenza - Afebrile, no leukocytosis, but slightly tachycardic and hypotensive - Lactate: 4.3- will check serum lactate and rapid flu - U/A positive for UTI - Urine culture pending, septic work up pending - Rocephin - IV fluids 3. Hx of DM - Hold Metformin - ISS, BGM ACHS 4. Hx of HTN - Hypotensive on admission - Hold BP meds for now- reevaluate in AM GI ppx: Protonix DVT ppx: SCDs, pt also on eliquis Case seen, discussed and reviewed with attending. Billy Li PGY2 - Date & Time Date: 09/06/17 Time: 01:05
[2017-09-06] MEDS: Nitroglycerin 2% Ointment Foilpak UD TOP STA ×2 (01:27→03:58)
[2017-09-06] MEDS: Sodium Chloride 0.9% 500 ML IV STA ×2 (01:35→03:59)
[2017-09-06] MEDS: Sodium Chloride 0.9% 1,000 ML IV STA ×2 (01:35→03:59)
[2017-09-06] MEDS: Sodium Chloride 0.9% 1,000 ML IV SCH ×2 (01:40→03:59)
[2017-09-06 07:23] LABS: VENOUS BLOOD GAS BASE EXCESS -4.9 mmol/L (0.0-2.0); VENOUS BLOOD GAS PO2 25 mm/Hg (30-55); VENOUS BLOOD PH 7.33 (7.32-7.43)
[2017-09-06] MEDS ORDERED: Pantoprazole 40 mg EC Tab PO SCH (07:30)
[2017-09-06] MEDS: Insulin Reg-MEDIUM-Coverage SC SCH ×5 (08:18→22:36)
--- NOTE | 2017-09-06 08:39 | RAD ---
HISTORY: fever COMPARISON: 05/04/2017 FINDINGS: LUNGS: No active pulmonary disease. PLEURA: No significant pleural effusion identified, no pneumothorax apparent. CARDIOVASCULAR: Normal. OSSEOUS STRUCTURES: No significant abnormalities. VISUALIZED UPPER ABDOMEN: Normal. OTHER FINDINGS: None. IMPRESSION: No active disease.
[2017-09-06 08:58] LABS: BASO # 0.01 K/mm3 (0.0-2.0); GRAN # 24.55 (1.4-6.5); GRAN % 94.4 % (50.0-68.0); HEMOGLOBIN 12.2 g/dL (14.0-18.0); LYMPH # 0.8 (1.2-3.4); LYMPH % 3.1 % (22.0-35.0); MEAN CORPUSCULAR HEMOGLOBIN 30.3 pg (25.0-35.0); MEAN PLATELET VOLUME 10.8 fl (7.0-11.0); MONO # 0.7 (0.1-0.6); MONO % 2.5 % (1.0-6.0); PLATELET COUNT 209 10^3/uL (120.0-450.0); RBC 4.02 10^6/uL (3.5-6.1); RED CELL DISTRIBUTION WIDTH 14.8 % (11.5-14.5)
[2017-09-06 09:10] LABS: LDL CHOLESTEROL 69 mg/dL (0-129)
[2017-09-06 09:15] LABS: ALB/GLOB RATIO 1.2 (1.1-1.8); ALBUMIN 3.6 g/dL (3.0-4.8); ALT/SGPT 126 U/L (7-56); AST/SGOT 628 U/L (17-59); BLOOD UREA NITROGEN 22 mg/dL (7-21); CALCIUM 8.7 mg/dL (8.4-10.5); GFR AFRICAN-AMERICAN > 60; GFR NON-AFRICAN AMERICAN > 60; HDL CHOLESTEROL 31 mg/dL (29-60)
[2017-09-06 10:45] LABS: VENOUS BLOOD GAS BASE EXCESS -8.5 mmol/L (0.0-2.0); VENOUS BLOOD GAS PO2 31 mm/Hg (30-55); VENOUS BLOOD PH 7.25 (7.32-7.43)
--- NOTE | 2017-09-06 10:57 | CARD ---
APPROVED REPORT EKG Measurement Heart [id number] <Conclusion> Poor data quality, interpretation may be adversely affected Sinus rhythm with short [place] Incomplete right bundle branch block Left anterior fascicular block Minimal voltage criteria for LVH, may be normal variant Possible Anterior infarct, age undetermined Abnormal ECG
[2017-09-06] MEDS ORDERED: SODIUM CHLORIDE 0.9% IV STA (11:47)
--- NOTE | 2017-09-06 11:50 | CON ---
DATE: 09/06/2017 CONSULT SERVICE: Cardiology. REASON FOR CONSULTATION AND FOLLOWUP: Cardiac evaluation, history of coronary artery disease, admitted with fever, chills, sepsis, and chest pain. BRIEF CLINICAL HISTORY: This is a 67-year-old male with past medical history significant for rheumatoid arthritis, history of coronary artery, status post multiple stents, COPD, non-insulin dependent diabetes, rheumatoid arthritis, history of atrial fibrillation status post SURAJ, cardioversion reverted back to AFib, on Eliquis and aspirin, came in with complaint of fever, chills yesterday. The patient was on the truck at work, started feeling fever and chills around 6:15, then it got an hour to get better, then again around 8 o'clock, the patient had bout of fever and chills. He called his boss to give some Tylenol and Motrin, though the patient was turned on hitting on the truck, but the boss called the ambulance and brought here. While the patient on way to here, he had a 5 episodes of vomiting and then hip and wrist pain and some chest discomfort. Denies any pain in jaw. Denies any radiation of the pain. PAST MEDICAL HISTORY: Significant for coronary artery disease, history of multiple stents, history of AFib status post SURAJ cardioversion failed, diabetes, hypertension, hyperlipidemia, history of rheumatoid arthritis. PAST SURGICAL HISTORY: Significant for multiple PTCA, history of cholecystectomy 2 months ago, history of amputation, history of ACL repair. PREVIOUS CARDIAC WORKUP: As follows: Most recently, the patient had a cardiac catheterization on 03/03/2015 that shows dominant right coronary artery, left main essentially free of significant disease. LAD has a 50% in-stent stenosis, mid circumflex totally occluded after giving a large patent OM1 branch, right coronary artery 80% to 90% stenosis with PTCA was done dated 03/03/2015. Most recent echocardiography on 01/13/2017 shows ejection fraction 55%, plaque in the descending aorta with the patient's ejection fraction 55%. At that time, SURAJ cardioversion was done, [id number] concentric LVH, [id number] mitral regurgitation noted. Trace tricuspid regurgitation noted dated 02/02/2017. As mentioned, past surgical history significant for toe amputation, anterior cruciate ligament repair, wrist surgery of the hand. SOCIAL HISTORY: Smoked cigars 50 years ago. Socially, he drinks. He denies any history of substance abuse. CURRENT MEDICATIONS: The patient is taking at home tramadol, Glucophage, amlodipine, lovastatin, Prilosec, multivitamin, methotrexate, isosorbide dinitrate, folic acid, digoxin, atenolol, aspirin, Apixaban. REVIEW OF SYSTEMS: As per HPI. PHYSICAL EXAMINATION: VITAL SIGNS: Temperature afebrile, heart rate 72, blood pressure 96/67. HEENT: PERRLA. Extraocular muscles intact. NECK: Supple. No carotid bruits. No thyromegaly. CHEST: Clear to auscultation. HEART: S1 and S2. Regular. ABDOMEN: Soft. EXTREMITIES: Clubbing and cyanosis negative. LABORATORY DATA: Blood workup as follows; WBC 9.8, hemoglobin 13.1, hematocrit 41.1 and platelet count 243. Chemistry shows sodium 130, potassium 4.1, chloride 102, carbon dioxide 19, anion gap of 20, BUN 22, creatinine 1.2, troponin 0.1. EKG shows normal sinus , short MS interval, incomplete right bundle left anterior hemiblock, rate of 70. IMPRESSION: Sepsis, diabetes, hypertension, hyperlipidemia, coronary artery disease status post multiple stents last stent in right coronary artery on 02/2015, possible urinary tract infection because the patient's urine is positive for nitrite. RECOMMENDATIONS: Broad-spectrum antibiotics. Follow up serial CPK, troponin. If the troponin is positive, we will consider cardiac catheterization. We will start add on second troponin. Further recommendation after cardiac catheterization. The patient is on Eliquis. Depending upon troponin, if the troponin trend up or positive, we will consider cardiac cath, discussed with the patient. We will follow with you. Continue IV fluid. Thank you for providing us the opportunity in taking care of the patient, Blanco Russell. Gracia Arias MD
[2017-09-06 11:51] LABS: BAND 5 % (0-2); LYMPHOCYTE 3 % (22.0-35.0); MONOCYTE 1 % (1.0-6.0); NEUTROPHIL 91 % (50.0-70.0); PLATELET ESTIMATE NORMAL (NORMAL)
[2017-09-06] MEDS: Vancomycin 1gm in NS 250ml 1 GM/250 ML BAG IVPB SCH (11:51)
[2017-09-06 11:58] LABS: CK MB% 3.7 % (2.5-3.0)
[2017-09-06] MEDS ORDERED: Piperacill/Tazo 4.5gm in NS 4.5 GM/100 ML BAG IVPB SCH (12:00)
[2017-09-06] MEDS ORDERED: Digoxin 125 mcg (0.125 mg) Tab PO SCH (14:00)
--- NOTE | 2017-09-06 16:10 | CT ---
PROCEDURE: CT Chest, Abdomen and Pelvis without intravenous contrast HISTORY: chest pain wbc 26k COMPARISON: 06/16/2017 ct TECHNIQUE: Radiation dose: Total exam DLP = 1474 mGy-cm. This CT exam was performed using one or more of the following dose reduction techniques: Automated exposure control, adjustment of the mA and/or kV according to patient size, and/or use of iterative reconstruction technique. FINDINGS: CT CHEST WITHOUT CONTRAST: LUNGS: New alveolar and interstitial infiltrates are seen in both lower lobes as well as the right upper lobe. This is superimposed upon chronic emphysematous changes MEDIASTINUM: Unremarkable. Normal caliber aorta and pulmonary arterial trunk. Normal size heart. The coronary artery stents are seen LYMPH NODES: Mildly enlarged mediastinal lymph nodes are seen. These are unchanged PLEURA: Unremarkable. No pneumothorax. No pleural fluid. BONES: Unremarkable. OTHER FINDINGS: None. CT ABDOMEN AND PELVIS: LIVER: Unremarkable. No gross lesion or ductal dilatation. GALLBLADDER AND BILE DUCTS: Unremarkable. PANCREAS: Calcifications are seen in the body and tail of the pancreas SPLEEN: Unremarkable. ADRENALS: Unremarkable. No mass. KIDNEYS AND URETERS: Unremarkable. No hydronephrosis. No solid mass. VASCULATURE: Unremarkable. No aortic aneurysm. BOWEL: There is a 5 cm diameter left inguinal hernia that contains a portion of the sigmoid colon. There is no obstruction APPENDIX: Normal appendix. PERITONEUM: Unremarkable. No free fluid. No free air. LYMPH NODES: Unremarkable. No enlarged lymph nodes. BLADDER: Unremarkable. REPRODUCTIVE: Unremarkable. BONES: Multilevel disc degeneration is seen in the upper lumbar and lower thoracic spine OTHER FINDINGS: None. IMPRESSION: New alveolar and interstitial infiltrates are seen in both lower lobes as well as the right upper lobe. This is superimposed upon chronic emphysematous changes There is a 5 cm diameter left inguinal hernia that contains a portion of the sigmoid colon. There is no obstruction
[2017-09-06] MEDS: Meropenem IV 1 gm in NS 50 ML IVPB SCH (16:47)
[2017-09-06] MEDS: Heparin25000 units/250ml 1/2NS 25,000 UNITS/250 ML BAG IV SCH (18:14)
[2017-09-06] MEDS: Albuterol-Ipratrop 3 mg / 0.5 (3 ml) UD IH PRN (20:42)
--- NOTE | 2017-09-06 23:15 | CP.PCM.CON ---
Past Patient History - Infectious Disease Hx of Infectious Diseases: None - Tetanus Immunizations Tetanus Immunization: Unknown - Past Social History Smoking Status: Heavy Smoker > 10 Cigarettes Daily - CARDIAC Hx Cardiac Disorders: Yes Hx Cardia Arrhythmia: Yes (afib) Hx Hypercholesterolemia: Yes Hx Hypertension: Yes - PULMONARY Hx Respiratory Disorders: Yes Hx Bronchitis: Yes Hx Chronic Obstructive Pulmonary Disease (COPD): Yes Hx Pneumonia: Yes - NEUROLOGICAL Hx Neurological Disorder: No - HEENT Hx HEENT Problems: Yes (wears glasses) - RENAL Hx Chronic Kidney Disease: No - ENDOCRINE/METABOLIC Hx Endocrine Disorders: No - HEMATOLOGICAL/ONCOLOGICAL Hx Blood Disorders: No - INTEGUMENTARY Hx Dermatological Problems: No - MUSCULOSKELETAL/RHEUMATOLOGICAL Hx Musculoskeletal Disorders: Yes Hx Arthritis: Yes (RA) Hx Falls: No Hx Unsteady Gait: No - GASTROINTESTINAL Hx Gastrointestinal Disorders: Yes Hx Gall Bladder Disease: Yes (gallstones) Hx Pancreatitis: Yes - GENITOURINARY/GYNECOLOGICAL Hx Genitourinary Disorders: No - PSYCHIATRIC Hx Psychophysiologic Disorder: Yes Hx Anxiety: Yes Hx Substance Use: No - SURGICAL HISTORY Hx Surgeries: Yes (right hand knucle replacement) Hx Amputation: Yes (left 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) Hx Cholecystectomy: Yes Hx Coronary Stent: Yes (x 15) Other/Comment: Bilateral knees: ACL repair - ANESTHESIA Hx Anesthesia: Yes Hx Anesthesia Reactions: No Hx Malignant Hyperthermia: No Meds Allergies/Adverse Reactions: Allergies Allergy/AdvReac Type Severity Reaction Status Date / Time No Known Allergies Allergy Verified 05/04/17 13:00 - Medications Medications: Current Medications Albuterol/Ipratropium (Duoneb 3 Mg/0.5 Mg (3 Ml) Ud) 3 ml IH Q2H PRN PRN Reason: Shortness of Breath Last Admin: 09/06/17 20:42 Dose: 3 ml Aspirin (Aspirin Chewable) 81 mg PO DAILY [facility] Last Admin: 09/06/17 09:55 Dose: 81 mg Digoxin (Lanoxin) 0.125 mg PO 1400 [facility] Last Admin: 09/06/17 13:01 Dose: 0.125 mg Ezetimibe (Zetia) 10 mg PO DAILY [facility] Last Admin: 09/06/17 09:55 Dose: 10 mg Folic Acid (Folic Acid) 1 mg PO DAILY [facility] Last Admin: 09/06/17 09:55 Dose: 1 mg Vancomycin HCl (Vancomycin 1gm) 1 gm in 250 mls @ 167 mls/hr IVPB Q12H [facility]MAN PRN Reason: Protocol Last Admin: 09/06/17 11:51 Dose: 167 mls/hr Meropenem (Merrem Iv 1 Gm Premix) 50 mls @ 100 mls/hr IVPB Q8 [facility] PRN Reason: Protocol Stop: 09/15/17 14:01 Last Admin: 09/06/17 16:47 Dose: 100 mls/hr Heparin Sodium/Sodium Chloride (Heparin 41963 Units/250ml 1/2 Normal Saline) 25 ,000 units in 250 mls @ 11.485 mls/hr IV .[id number] OLMAN; 12 UNITS/KG/HR PRN Reason: Protocol Last Admin: 09/06/17 18:14 Dose: 12 units/kg/hr, 11.485 mls/hr Insulin Human Regular (Humulin R Med) 0 units SC ACHS [facility]MAN PRN Reason: Protocol Last Admin: 09/06/17 22:36 Dose: Not Given Nicotine (Nicoderm Cq) 1 patch TD DAILY [facility] Last Admin: 09/06/17 09:55 Dose: 1 patch Ondansetron HCl (Zofran Inj) 4 mg IVP Q6H PRN PRN Reason: Nausea/Vomiting Pantoprazole Sodium (Protonix Ec Tab) 40 mg PO ACB [facility] Last Admin: 09/06/17 08:18 Dose: 40 mg Results - Vital Signs Recent Vital Signs: Last Vital Signs Temp 98 F 09/06/17 18:00 Pulse 75 09/06/17 18:00 Resp 22 09/06/17 18:00 BP 148/73 09/06/17 21:30 Pulse Ox 91 L 09/06/17 14:40 - Labs Result Diagrams: 09/06/17 06:45 09/06/17 08:30 Labs: Laboratory Results - last 24 hr 09/06/17 09/06/17 09/06/17 01:50 02:40 06:45 WBC RBC Hgb Hct MCV MCH MCHC RDW Plt Count MPV Gran % Lymph % (Auto) [place] % (Auto) Eos % (Auto) Baso % (Auto) Gran # Lymph # [place] # Eos # Baso # Neutrophils % (Manual) Band Neutrophils % Lymphocytes % (Manual) Monocytes % (Manual) Platelet Evaluation pO2 VBG pH VBG pCO2 VBG HCO3 VBG Total CO2 VBG O2 Sat (Calc) VBG Base Excess VBG Potassium Sodium Chloride Glucose Lactate FiO2 Potassium Carbon Dioxide Anion Gap BUN Creatinine Est GFR ( Amer) Est GFR (Non-Af Amer) POC Glucose (mg/dL) Random Glucose Hemoglobin A1c Lactic Acid 5.3 H* Calcium Total Bilirubin AST ALT Alkaline Phosphatase Lactate Dehydrogenase 2467 H Total Creatine Kinase 5482 H CK-MB (CK-2) 205.0 H CK-MB (CK-2) % 3.7 H Troponin I 159.00 H* D Total Protein Albumin Globulin Albumin/Globulin Ratio NT-Pro-B Natriuret Pep Triglycerides Cholesterol LDL Cholesterol Direct HDL Cholesterol TSH 3rd Generation Procalcitonin Venous Blood Potassium Influenza Typ A,B (EIA) Negative for flu a/b 09/06/17 09/06/17 09/06/17 06:45 06:45 06:45 WBC 26.0 H* D RBC 4.02 Hgb 12.2 L Hct 37.0 L MCV 92.0 MCH 30.3 MCHC 33.0 RDW 14.8 H Plt Count 209 MPV 10.8 Gran % 94.4 H Lymph % (Auto) 3.1 L [place] % (Auto) 2.5 Eos % (Auto) 0.0 L Baso % (Auto) 0.0 Gran # 24.55 H Lymph # 0.8 L [place] # 0.7 H Eos # 0.0 Baso # 0.01 Neutrophils % (Manual) 91 H Band Neutrophils % 5 H Lymphocytes % (Manual) 3 L Monocytes % (Manual) 1 Platelet Evaluation Normal pO2 25 L VBG pH 7.33 VBG pCO2 39.0 L VBG HCO3 20.6 L VBG Total CO2 21.8 L VBG O2 Sat (Calc) 58.2 VBG Base Excess -4.9 L VBG Potassium 4.4 Sodium 137.0 Chloride 102.0 Glucose 203 H Lactate 5.6 H* FiO2 21.0 Potassium Carbon Dioxide Anion Gap BUN Creatinine Est GFR ( Amer) Est GFR (Non-Af Amer) POC Glucose (mg/dL) Random Glucose Hemoglobin A1c 6.9 H Lactic Acid Calcium Total Bilirubin AST ALT Alkaline Phosphatase Lactate Dehydrogenase Total Creatine Kinase CK-MB (CK-2) CK-MB (CK-2) % Troponin I Total Protein Albumin Globulin Albumin/Globulin Ratio NT-Pro-B Natriuret Pep Triglycerides Cholesterol LDL Cholesterol Direct HDL Cholesterol TSH 3rd Generation Procalcitonin Venous Blood Potassium 4.4 Influenza Typ A,B (EIA) 09/06/17 09/06/17 09/06/17 06:45 07:52 08:30 WBC RBC Hgb Hct MCV MCH MCHC RDW Plt Count MPV Gran % Lymph % (Auto) [place] % (Auto) Eos % (Auto) Baso % (Auto) Gran # Lymph # [place] # Eos # Baso # Neutrophils % (Manual) Band Neutrophils % Lymphocytes % (Manual) Monocytes % (Manual) Platelet Evaluation pO2 VBG pH VBG pCO2 VBG HCO3 VBG Total CO2 VBG O2 Sat (Calc) VBG Base Excess VBG Potassium Sodium 138 Chloride 102 Glucose Lactate FiO2 Potassium 4.1 Carbon Dioxide 19 L Anion Gap 20 BUN 22 H Creatinine 1.2 Est GFR ( Amer) > 60 Est GFR (Non-Af Amer) > 60 POC Glucose (mg/dL) 182 H Random Glucose 213 H Hemoglobin A1c Lactic Acid Calcium 8.7 Total Bilirubin 0.5 AST 628 H D ALT 126 H Alkaline Phosphatase 59 Lactate Dehydrogenase Total Creatine Kinase CK-MB (CK-2) CK-MB (CK-2) % Troponin I Total Protein 6.6 Albumin 3.6 Globulin 3.0 Albumin/Globulin Ratio 1.2 NT-Pro-B Natriuret Pep Triglycerides 143 Cholesterol 124 L LDL Cholesterol Direct 69 HDL Cholesterol 31 TSH 3rd Generation 1.15 Procalcitonin Venous Blood Potassium Influenza Typ A,B (EIA) 09/06/17 09/06/17 09/06/17 08:30 10:40 11:30 WBC RBC Hgb Hct MCV MCH MCHC RDW Plt Count MPV Gran % Lymph % (Auto) [place] % (Auto) Eos % (Auto) Baso % (Auto) Gran # Lymph # [place] # Eos # Baso # Neutrophils % (Manual) Band Neutrophils % Lymphocytes % (Manual) Monocytes % (Manual) Platelet Evaluation pO2 31 VBG pH 7.25 L VBG pCO2 42.0 VBG HCO3 18.4 L VBG Total CO2 19.7 L VBG O2 Sat (Calc) 62.7 VBG Base Excess -8.5 L VBG Potassium 5.0 Sodium 137.0 Chloride 100.0 Glucose 260 H Lactate 6.7 H* FiO2 21.0 Potassium Carbon Dioxide Anion Gap BUN Creatinine Est GFR ( Amer) Est GFR (Non-Af Amer) POC Glucose (mg/dL) Random Glucose Hemoglobin A1c Lactic Acid Calcium Total Bilirubin AST ALT Alkaline Phosphatase Lactate Dehydrogenase 3375 H Total Creatine Kinase 6588 H CK-MB (CK-2) 261.0 H CK-MB (CK-2) % 4.0 H Troponin I 182.00 H* Total Protein Albumin Globulin Albumin/Globulin Ratio NT-Pro-B Natriuret Pep 2600 H Triglycerides Cholesterol LDL Cholesterol Direct HDL Cholesterol TSH 3rd Generation Procalcitonin Venous Blood Potassium 5.0 Influenza Typ A,B (EIA) 09/06/17 09/06/17 09/06/17 12:08 12:10 16:05 WBC RBC Hgb Hct MCV MCH MCHC RDW Plt Count MPV Gran % Lymph % (Auto) [place] % (Auto) Eos % (Auto) Baso % (Auto) Gran # Lymph # [place] # Eos # Baso # Neutrophils % (Manual) Band Neutrophils % Lymphocytes % (Manual) Monocytes % (Manual) Platelet Evaluation pO2 VBG pH VBG pCO2 VBG HCO3 VBG Total CO2 VBG O2 Sat (Calc) VBG Base Excess VBG Potassium Sodium Chloride Glucose Lactate FiO2 Potassium Carbon Dioxide Anion Gap BUN Creatinine Est GFR ( Amer) Est GFR (Non-Af Amer) POC Glucose (mg/dL) 196 H 155 H Random Glucose Hemoglobin A1c Lactic Acid Calcium Total Bilirubin AST ALT Alkaline Phosphatase Lactate Dehydrogenase Total Creatine Kinase CK-MB (CK-2) CK-MB (CK-2) % Troponin I Total Protein Albumin Globulin Albumin/Globulin Ratio NT-Pro-B Natriuret Pep Triglycerides Cholesterol LDL Cholesterol Direct HDL Cholesterol TSH 3rd Generation Procalcitonin 49.80 H Venous Blood Potassium Influenza Typ A,B (EIA) 09/06/17 09/06/17 20:26 21:19 WBC RBC Hgb Hct MCV MCH MCHC RDW Plt Count MPV Gran % Lymph % (Auto) [place] % (Auto) Eos % (Auto) Baso % (Auto) Gran # Lymph # [place] # Eos # Baso # Neutrophils % (Manual) Band Neutrophils % Lymphocytes % (Manual) Monocytes % (Manual) Platelet Evaluation pO2 VBG pH VBG pCO2 VBG HCO3 VBG Total CO2 VBG O2 Sat (Calc) VBG Base Excess VBG Potassium Sodium Chloride Glucose Lactate FiO2 Potassium Carbon Dioxide Anion Gap BUN Creatinine Est GFR ( Amer) Est GFR (Non-Af Amer) POC Glucose (mg/dL) 184 H 201 H Random Glucose Hemoglobin A1c Lactic Acid Calcium Total Bilirubin AST ALT Alkaline Phosphatase Lactate Dehydrogenase Total Creatine Kinase CK-MB (CK-2) CK-MB (CK-2) % Troponin I Total Protein Albumin Globulin Albumin/Globulin Ratio NT-Pro-B Natriuret Pep Triglycerides Cholesterol LDL Cholesterol Direct HDL Cholesterol TSH 3rd Generation Procalcitonin Venous Blood Potassium Influenza Typ A,B (EIA)
[2017-09-07] MEDS: Meropenem IV 1 gm in NS 50 ML IVPB SCH ×4 (00:07→22:51)
--- NOTE | 2017-09-07 00:21 | CON ---
DATE: 09/06/2017 Patient was seen in room 373, bed 3. CHIEF COMPLAINT: Fevers and chills times several days. HISTORY OF PRESENT ILLNESS: This is a 67-year-old male with history of obesity with a BMI of 31, who has a history of hypertension, atrial fibrillation resulting in a cardioversion in the past, history of pancreatitis resulting in a laparoscopic cholecystectomy in 04/2017, history of dyslipidemia, rheumatoid arthritis, chronic obstructive lung disease, coronary artery disease, history of colonoscopy, polypectomy with a tubular adenoma. On this admission, the patient is admitted with fevers, chills and chest pain. The chest pain is in epigastric area. He denies any abdominal pain, diarrhea, or constipation. He states that he did not have chest pain when he came in. He developed the chest pain in the hospital. The reason for coming to the hospital was the fevers and the chills, which have not subsided. PAST MEDICAL HISTORY: Significant for hypertension, atrial fibrillation, cardioversion, rheumatoid arthritis, chronic obstructive lung disease and tubular adenoma, obesity, dyslipidemia, and pancreatitis. PAST SURGICAL HISTORY: Significant for left ACL repair. The patient had a cardiac cath with stent placement PCI. The patient had a left toe amputation and a laparoscopic cholecystectomy in 04/2017. ALLERGIES: THE PATIENT HAS NO KNOWN ALLERGIES TO ANY ANTIBIOTICS. REVIEW OF SYSTEMS: Reveals no diarrhea or constipation. No dysuria or frequency. No headaches. No blurred vision. No neck pain or joint pain. No rash. MEDICATIONS: At home include the patient to be on Eliquis, tramadol, metformin, amlodipine, rosuvastatin, omeprazole, methotrexate, isosorbide, furosemide, folic, Zetia, digoxin, and atenolol. PHYSICAL EXAMINATION GENERAL: On exam, the patient is in bed, in no acute distress with a temperature of 97, respiratory rate; the patient was breathing up to 26 to 28, its down to 20, and the patient's heart rate was up to 82 and blood pressure 97/59. HEENT: Unremarkable. NECK: Supple. LUNGS: Decreased breath sounds. HEART: Normal S1 and S2. ABDOMEN: Soft and nontender. No organomegaly. No rebound. No guarding. LABORATORY DATA: Reveals a white count of 9.8, this morning it is 26,000, hemoglobin of 12 with platelets 209 and patient has a 94% granulocytosis, 5% bandemia, coagulation is noted, and blood gases are reviewed. Chemistries reveals a BUN of 22, creatinine of 1.2. AST is 628, ALT of 126. The patient has an LDH of 3,375. Totals creatine kinase is 6,000 and patient's troponin is 182. Cholesterol is elevated. Urinalysis reveals 10 to 15 wbc's, many bacteria, positive nitrites, and toxicology is noted. Serology for influenza is negative. The patient had a chest x-ray, which revealed to be negative and an EKG with a QTc of 406, with a left anterior fascicular block. ASSESSMENT: This is a 67-year-old male with hypertension, atrial fibrillation with cardioversion, history of pancreatitis resulting in a laparoscopic cholecystectomy in 04/2017, history of obesity with BMI of 31, coronary artery disease, the patient had cardiac cath and percutaneous coronary intervention, and history of rheumatoid arthritis, chronic obstructive lung disease. He had a colonoscopy with a polypectomy. Pathology showed tubular adenoma. Now with fevers and chills, dyspnea and leukocytosis 26,000. Positive urinalysis. 1. Sepsis with urine as a source, must rule out underlying prostate disease. The chest pain has not been explained at this point. As per Cardiology, we will order a CAT scan of the chest to rule out infiltrates. If the chest x-rays is negative, we will treat the patient with vancomycin, meropenem, and p.o. doxycycline. Pending panculture results. CAT scan of the abdomen and pelvic, CAT scan of the chest, and we will follow closely with you. We will also check on a procalcitonin in addition to pancultures. We will follow with you. Azael Lara MD
--- NOTE | 2017-09-07 00:58 | CP.PCM.PN ---
Subjective - Date & Time of Evaluation Date of Evaluation: 09/07/17 Time of Evaluation: 21:10 - Subjective Subjective: Called from nurser, patient was desaturating to the 80s on 6 litters nasal cannulla. Went evaluate patient. Patient is a 67 y/o with pmh including afib, CAD with 15 stents who initially presented with chest pain, now with upward trending trop , rhabdomyolisis, pulm infiltration and emphysematous changes on CT chest in respiratory distress. Patient had borderline hypotention earlier today, was giving a litter of IVF bolus. Patient became short of breath after. Currently patient c/o sob, worst when he tries to lie down. Denies cp. Reviewed wood grainer note, patient going for cardiac cath. On antibiotics Currently SBP of 115. No wheezing on auscultation, + rales at the bases after nebulizer treatment. Plan: Will give 20 mg IVP of Lasix Strict I&O Will place on bipap Will consider ICU eval if hypoxia doesn't improve with bipap. Objective - Vital Signs/Intake and Output Vital Signs (last 24 hours): Temp Pulse Resp BP Pulse Ox 98 F 87 22 148/73 91 L 09/06/17 18:00 09/06/17 23:16 09/06/17 18:00 09/06/17 21:30 09/06/17 14:40 Intake and Output: 09/06/17 09/07/17 18:59 06:59 Intake Total 960 1650 Balance 960 1650 - Medications Medications: Current Medications Albuterol/Ipratropium (Duoneb 3 Mg/0.5 Mg (3 Ml) Ud) 3 ml IH Q2H PRN PRN Reason: Shortness of Breath Last Admin: 09/06/17 20:42 Dose: 3 ml Aspirin (Aspirin Chewable) 81 mg PO DAILY [facility] Last Admin: 09/06/17 09:55 Dose: 81 mg Digoxin (Lanoxin) 0.125 mg PO 1400 [facility] Last Admin: 09/06/17 13:01 Dose: 0.125 mg Ezetimibe (Zetia) 10 mg PO DAILY [facility] Last Admin: 09/06/17 09:55 Dose: 10 mg Folic Acid (Folic Acid) 1 mg PO DAILY [facility] Last Admin: 09/06/17 09:55 Dose: 1 mg Vancomycin HCl (Vancomycin 1gm) 1 gm in 250 mls @ 167 mls/hr IVPB Q12H [facility] PRN Reason: Protocol Last Admin: 09/06/17 11:51 Dose: 167 mls/hr Meropenem (Merrem Iv 1 Gm Premix) 50 mls @ 100 mls/hr IVPB Q8 [facility] PRN Reason: Protocol Stop: 09/15/17 14:01 Last Admin: 09/07/17 00:07 Dose: 100 mls/hr Heparin Sodium/Sodium Chloride (Heparin 06083 Units/250ml 1/2 Normal Saline) 25 ,000 units in 250 mls @ 11.485 mls/hr IV .[id number] [facility]MAN; 12 UNITS/KG/HR PRN Reason: Protocol Last Admin: 09/06/17 18:14 Dose: 12 units/kg/hr, 11.485 mls/hr Insulin Human Regular (Humulin R Med) 0 units SC ACHS [facility] PRN Reason: Protocol Last Admin: 09/06/17 22:36 Dose: Not Given Nicotine (Nicoderm Cq) 1 patch TD DAILY [facility] Last Admin: 09/06/17 09:55 Dose: 1 patch Ondansetron HCl (Zofran Inj) 4 mg IVP Q6H PRN PRN Reason: Nausea/Vomiting Pantoprazole Sodium (Protonix Ec Tab) 40 mg PO ACB [facility] Last Admin: 09/06/17 08:18 Dose: 40 mg - Labs Labs: 09/06/17 06:45 09/06/17 08:30 PT 17.1 SECONDS (9.4-12.5) H 09/05/17 21:45 INR 1.49 (0.93-1.08) H 09/05/17 21:45 APTT 29.9 Seconds (25.1-36.5) 09/05/17 21:45
[2017-09-07] MEDS: Albuterol-Ipratrop 3 mg / 0.5 (3 ml) UD IH SCH ×4 (01:10→20:16)
[2017-09-07] MEDS: Vancomycin 1gm in NS 250ml 1 GM/250 ML BAG IVPB SCH ×3 (01:31→23:40)
--- NOTE | 2017-09-07 04:21 | CP.PCM.CON ---
History of Present Illness - History of Present Illness History of Present Illness: ICU consult note for Dr Jimenez Reason for consult: Respiratory ditress. Patient is a 67 y/o make with PMHx of CAD s/p 15 stents, COPD and NIDDM who initially presented with substernal chest pain, was found to have upward trending troponin, with rhadomyolisis. Patient also had CT chest revealing pulmonary infiltration and emphysematous changes. Overnight patient became short of breath, up on evaluating patient, he appeared hypoxic, thus patient was giving 20 mg ivp of Lasix and was placed on bipap. Patient's saturation initially improved from 70s to 96% on the bipap. However, this morning SPANISH TRANSLATOR was called due to tachypnea RR in the 40s, and drop in oxygen saturation despite on bipap. ICU is called to evaluate. Past medical history: CAD s/p 15 stents, COPD, GERD, NIDDM, rheumatoid arthritis , Afib s/p DC cardioversion in january 2017. Past surgical history: multiple PCI, cholecystectomy, Toe amputation, ACL repair Home meds: As per MAR Allergies: NKDA Social history: Smokes 1 pack of cigars x 50yrs, denies EtOH or drug use. 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 [employer] Family History: Mother - heart disease; Father - heart disease Review of Systems - Review of Systems Systems not reviewed;Unavailable: Respiratory Distress Past Patient History - Infectious Disease Hx of Infectious Diseases: None - Tetanus Immunizations Tetanus Immunization: Unknown - Past Social History Smoking Status: Heavy Smoker > 10 Cigarettes Daily Alcohol: None Drugs: Denies Home Situation {Lives}: With Family - CARDIAC Hx Cardiac Disorders: Yes Hx Cardia Arrhythmia: Yes (afib) Hx Hypercholesterolemia: Yes Hx Hypertension: Yes - PULMONARY Hx Respiratory Disorders: Yes Hx Bronchitis: Yes Hx Chronic Obstructive Pulmonary Disease (COPD): Yes Hx Pneumonia: Yes - NEUROLOGICAL Hx Neurological Disorder: No - HEENT Hx HEENT Problems: Yes (wears glasses) - RENAL Hx Chronic Kidney Disease: No - ENDOCRINE/METABOLIC Hx Endocrine Disorders: No - HEMATOLOGICAL/ONCOLOGICAL Hx Blood Disorders: No - INTEGUMENTARY Hx Dermatological Problems: No - MUSCULOSKELETAL/RHEUMATOLOGICAL Hx Musculoskeletal Disorders: Yes Hx Arthritis: Yes (RA) Hx Falls: No Hx Unsteady Gait: No - GASTROINTESTINAL Hx Gastrointestinal Disorders: Yes Hx Gall Bladder Disease: Yes (gallstones) Hx Pancreatitis: Yes - GENITOURINARY/GYNECOLOGICAL Hx Genitourinary Disorders: No - PSYCHIATRIC Hx Psychophysiologic Disorder: Yes Hx Anxiety: Yes Hx Substance Use: No - SURGICAL HISTORY Hx Surgeries: Yes (right hand knucle replacement) Hx Amputation: Yes (left 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) Hx Cholecystectomy: Yes Hx Coronary Stent: Yes (x 15) Other/Comment: Bilateral knees: ACL repair - ANESTHESIA Hx Anesthesia: Yes Hx Anesthesia Reactions: No Hx Malignant Hyperthermia: No Meds Allergies/Adverse Reactions: Allergies Allergy/AdvReac Type Severity Reaction Status Date / Time No Known Allergies Allergy Verified 05/04/17 13:00 - Medications Medications: Current Medications Albuterol/Ipratropium (Duoneb 3 Mg/0.5 Mg (3 Ml) Ud) 3 ml IH Q2H PRN PRN Reason: Shortness of Breath Last Admin: 09/06/17 20:42 Dose: 3 ml Albuterol/Ipratropium (Duoneb 3 Mg/0.5 Mg (3 Ml) Ud) 3 ml IH [id number] [facility] Last Admin: 09/07/17 01:10 Dose: 3 ml Aspirin (Aspirin Chewable) 81 mg PO DAILY [facility] Last Admin: 09/06/17 09:55 Dose: 81 mg Digoxin (Lanoxin) 0.125 mg PO 1400 [facility] Last Admin: 09/06/17 13:01 Dose: 0.125 mg Ezetimibe (Zetia) 10 mg PO DAILY [facility] Last Admin: 09/06/17 09:55 Dose: 10 mg Folic Acid (Folic Acid) 1 mg PO DAILY [facility] Last Admin: 09/06/17 09:55 Dose: 1 mg Vancomycin HCl (Vancomycin 1gm) 1 gm in 250 mls @ 167 mls/hr IVPB Q12H [facility] PRN Reason: Protocol Last Admin: 09/07/17 01:31 Dose: 167 mls/hr Meropenem (Merrem Iv 1 Gm Premix) 50 mls @ 100 mls/hr IVPB Q8 [facility] PRN Reason: Protocol Stop: 09/15/17 14:01 Last Admin: 09/07/17 00:07 Dose: 100 mls/hr Heparin Sodium/Sodium Chloride (Heparin 05515 Units/250ml 1/2 Normal Saline) 25 ,000 units in 250 mls @ 11.485 mls/hr IV .[id number] [facility]; 12 UNITS/KG/HR PRN Reason: Protocol Last Admin: 09/06/17 18:14 Dose: 12 units/kg/hr, 11.485 mls/hr Insulin Human Regular (Humulin R Med) 0 units SC ACHS [facility] PRN Reason: Protocol Last Admin: 09/06/17 22:36 Dose: Not Given Nicotine (Nicoderm Cq) 1 patch TD DAILY [facility] Last Admin: 09/06/17 09:55 Dose: 1 patch Ondansetron HCl (Zofran Inj) 4 mg IVP Q6H PRN PRN Reason: Nausea/Vomiting Pantoprazole Sodium (Protonix Ec Tab) 40 mg PO ACB [facility] Last Admin: 09/06/17 08:18 Dose: 40 mg Physical Exam - Constitutional Appears: No Acute Distress, Older Than Stated Age, Chronically Ill - Head Exam Head Exam: ATRAUMATIC, NORMAL INSPECTION, NORMOCEPHALIC - Eye Exam Eye Exam: Normal appearance - ENT Exam ENT Exam: Mucous Membranes Moist - Neck Exam Neck exam: Positive for: Normal Inspection - Respiratory Exam Respiratory Exam: Decreased Breath Sounds (at the lower lobes.), Rales, Wheezes , Respiratory Distress. absent: Accessory Muscle Use, Chest Wall Tenderness, Prolonged Expiratory Phase, Rhonchi, Stridor - Cardiovascular Exam Cardiovascular Exam: Tachycardia, RRR, +S1, +S2. absent: Diastolic murmur, Gallop, JVD, Rubs - GI/Abdominal Exam GI & Abdominal Exam: Normal Bowel Sounds, Soft. absent: Distended, Firm, Guarding, Rigid, Tenderness - Extremities Exam Extremities exam: Positive for: normal inspection. Negative for: pedal edema - Back Exam Back exam: NORMAL INSPECTION - Neurological Exam Neurological exam: Alert - Psychiatric Exam Psychiatric exam: Normal Affect, Normal Mood - Skin Skin Exam: Dry, Intact, Warm Results - Vital Signs Recent Vital Signs: Last Vital Signs Temp 98 F 09/06/17 18:00 Pulse 87 09/06/17 23:16 Resp 22 09/06/17 18:00 BP 148/73 09/06/17 21:30 Pulse Ox 91 L 09/06/17 14:40 - Labs Result Diagrams: 09/06/17 06:45 09/06/17 08:30 Labs: Laboratory Results - last 24 hr 09/06/17 09/06/17 09/06/17 06:45 06:45 06:45 WBC 26.0 H* D RBC 4.02 Hgb 12.2 L Hct 37.0 L MCV 92.0 MCH 30.3 MCHC 33.0 RDW 14.8 H Plt Count 209 MPV 10.8 Gran % 94.4 H Lymph % (Auto) 3.1 L [place] % (Auto) 2.5 Eos % (Auto) 0.0 L Baso % (Auto) 0.0 Gran # 24.55 H Lymph # 0.8 L [place] # 0.7 H Eos # 0.0 Baso # 0.01 Neutrophils % (Manual) 91 H Band Neutrophils % 5 H Lymphocytes % (Manual) 3 L Monocytes % (Manual) 1 Platelet Evaluation Normal APTT pO2 25 L VBG pH 7.33 VBG pCO2 39.0 L VBG HCO3 20.6 L VBG Total CO2 21.8 L VBG O2 Sat (Calc) 58.2 VBG Base Excess -4.9 L VBG Potassium 4.4 Sodium 137.0 Chloride 102.0 Glucose 203 H Lactate 5.6 H* FiO2 21.0 Potassium Carbon Dioxide Anion Gap BUN Creatinine Est GFR ( Amer) Est GFR (Non-Af Amer) POC Glucose (mg/dL) Random Glucose Hemoglobin A1c Calcium Total Bilirubin AST ALT Alkaline Phosphatase Lactate Dehydrogenase 2467 H Total Creatine Kinase 5482 H CK-MB (CK-2) 205.0 H CK-MB (CK-2) % 3.7 H Troponin I 159.00 H* D Total Protein Albumin Globulin Albumin/Globulin Ratio NT-Pro-B Natriuret Pep Triglycerides Cholesterol LDL Cholesterol Direct HDL Cholesterol TSH 3rd Generation Procalcitonin Venous Blood Potassium 4.4 09/06/17 09/06/17 09/06/17 06:45 06:45 07:52 WBC RBC Hgb Hct MCV MCH MCHC RDW Plt Count MPV Gran % Lymph % (Auto) [place] % (Auto) Eos % (Auto) Baso % (Auto) Gran # Lymph # [place] # Eos # Baso # Neutrophils % (Manual) Band Neutrophils % Lymphocytes % (Manual) Monocytes % (Manual) Platelet Evaluation APTT pO2 VBG pH VBG pCO2 VBG HCO3 VBG Total CO2 VBG O2 Sat (Calc) VBG Base Excess VBG Potassium Sodium Chloride Glucose Lactate FiO2 Potassium Carbon Dioxide Anion Gap BUN Creatinine Est GFR ( Amer) Est GFR (Non-Af Amer) POC Glucose (mg/dL) 182 H Random Glucose Hemoglobin A1c 6.9 H Calcium Total Bilirubin AST ALT Alkaline Phosphatase Lactate Dehydrogenase Total Creatine Kinase CK-MB (CK-2) CK-MB (CK-2) % Troponin I Total Protein Albumin Globulin Albumin/Globulin Ratio NT-Pro-B Natriuret Pep Triglycerides Cholesterol LDL Cholesterol Direct HDL Cholesterol TSH 3rd Generation 1.15 Procalcitonin Venous Blood Potassium 09/06/17 09/06/17 09/06/17 08:30 08:30 10:40 WBC RBC Hgb Hct MCV MCH MCHC RDW Plt Count MPV Gran % Lymph % (Auto) [place] % (Auto) Eos % (Auto) Baso % (Auto) Gran # Lymph # [place] # Eos # Baso # Neutrophils % (Manual) Band Neutrophils % Lymphocytes % (Manual) Monocytes % (Manual) Platelet Evaluation APTT pO2 31 VBG pH 7.25 L VBG pCO2 42.0 VBG HCO3 18.4 L VBG Total CO2 19.7 L VBG O2 Sat (Calc) 62.7 VBG Base Excess -8.5 L VBG Potassium 5.0 Sodium 138 137.0 Chloride 102 100.0 Glucose 260 H Lactate 6.7 H* FiO2 21.0 Potassium 4.1 Carbon Dioxide 19 L Anion Gap 20 BUN 22 H Creatinine 1.2 Est GFR ( Amer) > 60 Est GFR (Non-Af Amer) > 60 POC Glucose (mg/dL) Random Glucose 213 H Hemoglobin A1c Calcium 8.7 Total Bilirubin 0.5 AST 628 H D ALT 126 H Alkaline Phosphatase 59 Lactate Dehydrogenase Total Creatine Kinase CK-MB (CK-2) CK-MB (CK-2) % Troponin I Total Protein 6.6 Albumin 3.6 Globulin 3.0 Albumin/Globulin Ratio 1.2 NT-Pro-B Natriuret Pep 2600 H Triglycerides 143 Cholesterol 124 L LDL Cholesterol Direct 69 HDL Cholesterol 31 TSH 3rd Generation Procalcitonin Venous Blood Potassium 5.0 09/06/17 09/06/17 09/06/17 11:30 12:08 12:10 WBC RBC Hgb Hct MCV MCH MCHC RDW Plt Count MPV Gran % Lymph % (Auto) [place] % (Auto) Eos % (Auto) Baso % (Auto) Gran # Lymph # [place] # Eos # Baso # Neutrophils % (Manual) Band Neutrophils % Lymphocytes % (Manual) Monocytes % (Manual) Platelet Evaluation APTT pO2 VBG pH VBG pCO2 VBG HCO3 VBG Total CO2 VBG O2 Sat (Calc) VBG Base Excess VBG Potassium Sodium Chloride Glucose Lactate FiO2 Potassium Carbon Dioxide Anion Gap BUN Creatinine Est GFR ( Amer) Est GFR (Non-Af Amer) POC Glucose (mg/dL) 196 H Random Glucose Hemoglobin A1c Calcium Total Bilirubin AST ALT Alkaline Phosphatase Lactate Dehydrogenase 3375 H Total Creatine Kinase 6588 H CK-MB (CK-2) 261.0 H CK-MB (CK-2) % 4.0 H Troponin I 182.00 H* Total Protein Albumin Globulin Albumin/Globulin Ratio NT-Pro-B Natriuret Pep Triglycerides Cholesterol LDL Cholesterol Direct HDL Cholesterol TSH 3rd Generation Procalcitonin 49.80 H Venous Blood Potassium 09/06/17 09/06/17 09/06/17 16:05 20:26 21:19 WBC RBC Hgb Hct MCV MCH MCHC RDW Plt Count MPV Gran % Lymph % (Auto) [place] % (Auto) Eos % (Auto) Baso % (Auto) Gran # Lymph # [place] # Eos # Baso # Neutrophils % (Manual) Band Neutrophils % Lymphocytes % (Manual) Monocytes % (Manual) Platelet Evaluation APTT pO2 VBG pH VBG pCO2 VBG HCO3 VBG Total CO2 VBG O2 Sat (Calc) VBG Base Excess VBG Potassium Sodium Chloride Glucose Lactate FiO2 Potassium Carbon Dioxide Anion Gap BUN Creatinine Est GFR ( Amer) Est GFR (Non-Af Amer) POC Glucose (mg/dL) 155 H 184 H 201 H Random Glucose Hemoglobin A1c Calcium Total Bilirubin AST ALT Alkaline Phosphatase Lactate Dehydrogenase Total Creatine Kinase CK-MB (CK-2) CK-MB (CK-2) % Troponin I Total Protein Albumin Globulin Albumin/Globulin Ratio NT-Pro-B Natriuret Pep Triglycerides Cholesterol LDL Cholesterol Direct HDL Cholesterol TSH 3rd Generation Procalcitonin Venous Blood Potassium 09/07/17 00:20 WBC RBC Hgb Hct MCV MCH MCHC RDW Plt Count MPV Gran % Lymph % (Auto) [place] % (Auto) Eos % (Auto) Baso % (Auto) Gran # Lymph # [place] # Eos # Baso # Neutrophils % (Manual) Band Neutrophils % Lymphocytes % (Manual) Monocytes % (Manual) Platelet Evaluation APTT 63.5 H pO2 VBG pH VBG pCO2 VBG HCO3 VBG Total CO2 VBG O2 Sat (Calc) VBG Base Excess VBG Potassium Sodium Chloride Glucose Lactate FiO2 Potassium Carbon Dioxide Anion Gap BUN Creatinine Est GFR ( Amer) Est GFR (Non-Af Amer) POC Glucose (mg/dL) Random Glucose Hemoglobin A1c Calcium Total Bilirubin AST ALT Alkaline Phosphatase Lactate Dehydrogenase Total Creatine Kinase CK-MB (CK-2) CK-MB (CK-2) % Troponin I Total Protein Albumin Globulin Albumin/Globulin Ratio NT-Pro-B Natriuret Pep Triglycerides Cholesterol LDL Cholesterol Direct HDL Cholesterol TSH 3rd Generation Procalcitonin Venous Blood Potassium Assessment & Plan - Assessment and Plan (Free Text) Assessment: Patient is a 67 y/o with pmh significant for CAD s/p 15 stents, copd admitted with chest pain r/o ACS, and was found to have NSTEMI with upward trending trop , along with respiratory distress likely due to worsening in cardiac ischemia versus chf exacerbation and pneumonia. Patient is also septic with blood cultures growing gram negative lauren. Patient to be transferred to ICU for monitoring and management of respiratory distress. Plan: Neuro: Patient is a&ox3, able to express himself , at baseline. Pulm: Hypoxemic respiratory failure likely due to Pneumonia superimposed with acute decompensated CHF - Will obtain ABG with shock panel - Patient to be intubated and sedated - Aim of O2 sat above 94%. - Conservative fluid management - on standing and prn duoneb treatment - Keep head of bed elevation above 45 degrees. - On antibiotics for pneumonia stat dose 40 mg ivp Lasix Cardio: NSTEMI- with worsening upward tren on troponin - Cardiology following, possible cardiac cath today - beta adali on hold due to transient labile hypotention - Will consider resuming beta adali - On heparin drip - Will give Lasix as BP tolerates - Pending repeat cardiac echo - Continue with asa - Continue to trend troponin - crestor on hold due to rhabdo, continue with zetia. - Patient had labile hypotension sbp in the 90s earlier today, BP improved now. Will monitor and keep MAP above 65. ID- Sepsis likely due to bacteremia superimposed with pneumonia - + leukocytosis, + tachycardia and tachypnea. - blood cultures growing gram negative lauren, pending - will continue t trend lactic acid - Continue on merrem and vancomycin - ID following Renal: Rhamdomyolisis- patient had fluid bolus earlier this morning but became short or breath. - fluid hydration on hold - will trend cpk - strict I&Os. Endo: NIDDM- insulin sliding scale to maintain glucose between 140-160. GI: NPO due to respiratory distress. ppi for prophylaxis. Heme: mild anemia, no signs of bleeding, will continue to monitor h/h. DVT prophylaxis: on heparin drip for NSTEMI. Patient seen, examined and case discussed with Dr Jimenez. - Date & Time Date: 09/07/17 Time: 04:15
[2017-09-07] MEDS: Albuterol-Ipratrop 3 mg / 0.5 (3 ml) UD IH PRN (04:25)
--- NOTE | 2017-09-07 04:37 | PCM.RRT ---
FLATBED STITCHER Nurse Assessment - Situation Date: 09/07/17 Time FLATBED STITCHER was called: 04:10 FLATBED STITCHER Responder Arrival Time: 04:14 FLATBED STITCHER Location:: [address] [place] [address] Room Number: [id number] FLATBED STITCHER Reason for Call: Respiratory Distress, O2 Saturation below 90% FLATBED STITCHER Called By: RN - IV IV Inserted during FLATBED STITCHER?: No - Respiratory Oxygen Delivery Method: BiPAP @% Received Nebulizer Treatments:: Yes (Xopenex) Was the Patient Ventilated with Bag/Mask 100% O2?: No Secretions Suctioned?: No Was the Patient Intubated?: No Was the Patient Placed on a Ventilator?: No - Medication Medications Administered During FLATBED STITCHER: Lasix 40mg IVP - Diagnostic Test Ordered EKG: No Chest X-Ray: No CT Scan: No CPR started during FLATBED STITCHER?: No - Vital Signs Vital Sign: Rapid Response Vital Sign Blood Pressure 121/80 Pulse Rate 109 Respiratory Rate 43 Oxygen Saturation 89 - Time FLATBED STITCHER Ended Time FLATBED STITCHER Ended: 04:25 - Vital Signs at end of FLATBED STITCHER Vital Signs at end of FLATBED STITCHER: Rapid Response End Vital Sign Blood Pressure 110/74 Pulse Rate 109 Respiratory Rate 25 Temperature 100.8 F O2 Sat by Pulse Oximetry 95 - Respiratory Oxygen Delivery Method: BiPAP @% - Head Head Exam: ATRAUMATIC, NORMAL INSPECTION, NORMOCEPHALIC - Eyes Eye Exam: Normal appearance - Respiratory Exam Respiratory Exam: Rales Additional comments: Tachypnic - Cardiovascular Exam Cardiovascular Exam: Tachycardia, +S1, +S2 - GI/Abdominal Exam GI & Abdominal Exam: Soft - Neurological Exam Neurological Exam: Alert, Awake, Oriented x3 Plan - Assessment of Findings&Treatment Plan Patient is a 67 y/o make with PMHx of CAD s/p 15 stents, COPD and NIDDM who initially presented with substernal chest pain, was found to have upward trending troponin, with rhadomyolisis. Patient also had CT chest revealing pulmonary infiltration and emphysematous changes. Rapid Response was called due to patients respiratory rate being in the 40s and low oxygen saturation in the 70s despite being on BIPAP. Patient was receiving breathing treatment, his vitals were obtained BP was 121/80, Pulse was 109 and RR was 43. Physical exam was performed and patient had crackles in the lung bases. 40mg IV lasix was administered. Patients saturation improved to 95% ICU and respiratory rate was in the upper 30s. ICU was notified and called to evaluate.
[2017-09-07] MEDS ORDERED: Etomidate 20 mg/10ml Inj IV ONE (05:13)
[2017-09-07] MEDS ORDERED: Propofol 10 mg/ml 1,000 MG/100 ML VIAL ONE (05:30)
[2017-09-07] MEDS: Propofol 10 mg/ml 1,000 MG/100 ML VIAL IV PRN ×5 (05:30→23:48)
--- NOTE | 2017-09-07 05:31 | PCM.PROC ---
Procedures Attestation:: I certify that I have explained the specified Operation(s) or Procedure(s), risks, benefits and reasonable alternatives to the Patient and/or other person responsible. The opportunity was given to ask questions and all questions answered - Intubation Time Out Performed: Yes Sedative: Etomidate (20 mg) Laryngoscope: Heri ET Tube Size: 8.0 ET Tube Uncuffed: Yes ET Tube Secured Locarion: Lips ET Tube Placement Confirmation: Visualized Passing Through Cords, Breath Sounds Equal Bilaterally, No Breath Sounds Over Epigastrum, Confirmation w/Capnometry Patient Tolerated Procedure: Well Procedure Immediate Complications: None
[2017-09-07] MEDS ORDERED: Amikacin 500 mg/2ml Inj IV ONE (06:48)
[2017-09-07 07:01] LABS: ARTERIAL BLOOD GAS HCO3 13.6 mmol/L (21-28); ARTERIAL BLOOD GAS O2 SAT 88.6 % (95-98); ARTERIAL BLOOD GAS PCO2 40 mm/Hg (35-45); ARTERIAL BLOOD GAS TCO2 14.8 mmol.L (22-28)
[2017-09-07 07:03] LABS: ARTERIAL BLOOD GAS PH 7.14 (7.35-7.45)
[2017-09-07 07:24] LABS: BASO # 0.02 K/mm3 (0.0-2.0); BASO % 0.1 % (0.0-3.0); GRAN # 24.98 (1.4-6.5); GRAN % 93.9 % (50.0-68.0); HEMOGLOBIN 13.9 g/dL (14.0-18.0); LYMPH # 0.9 (1.2-3.4); LYMPH % 3.2 % (22.0-35.0); MEAN CELL VOLUME 93.8 fl (80.0-105.0); MEAN CORPUSCULAR HEMOGLOBIN 30.7 pg (25.0-35.0); MEAN CORPUSCULAR HGB CONC 32.7 g/dl (31.0-37.0); MEAN PLATELET VOLUME 11.2 fl (7.0-11.0); MONO # 0.7 (0.1-0.6); MONO % 2.8 % (1.0-6.0); RBC 4.53 10^6/uL (3.5-6.1); RED CELL DISTRIBUTION WIDTH 15.3 % (11.5-14.5)
[2017-09-07 07:49] LABS: WHITE BLOOD COUNT 26.6 10^3/ul (4.5-11.0)
[2017-09-07 07:57] LABS: ALB/GLOB RATIO 1.1 (1.1-1.8); ALBUMIN 3.8 g/dL (3.0-4.8); CALCIUM 9.1 mg/dL (8.4-10.5); MAGNESIUM 1.7 mg/dL (1.7-2.2)
[2017-09-07 08:00] LABS: CK MB% 2.6 % (2.5-3.0); CK-MB 61.4 ng/mL (0.0-3.6)
[2017-09-07] MEDS ORDERED: Tmp-Smz 16 mg-80 mg/ml Inj IVPB SCH ×2 (08:15→08:36)
[2017-09-07] MEDS: Insulin Reg-MEDIUM-Coverage SC SCH ×4 (08:20→23:41)
[2017-09-07] MEDS ORDERED: Cisatracurium Besylate 100 MG in Sodium Chloride 0.9% 250 ML IV PRN (09:14)
[2017-09-07] MEDS ORDERED: NOREPINEPHRINE BIT/0.9 % NACL 4 MG/250 ML BAG IV ONE (10:03)
[2017-09-07 10:07] LABS: ARTERIAL BLOOD GAS HCO3 17.3 mmol/L (21-28); ARTERIAL BLOOD GAS O2 SAT 87.7 % (95-98); ARTERIAL BLOOD GAS PCO2 61 mm/Hg (35-45); ARTERIAL BLOOD GAS TCO2 19.2 mmol.L (22-28)
[2017-09-07 10:12] LABS: ARTERIAL BLOOD GAS PH 7.06 (7.35-7.45)
[2017-09-07] MEDS ORDERED: Sodium Chloride 0.9% 1,000 ML IV STA ×2 (10:13→11:00)
--- NOTE | 2017-09-07 10:17 | RAD ---
HISTORY: ET tube placement COMPARISON: 09/05/2017 FINDINGS: The endotracheal tube terminates 2.5 cm proximal to the geetha. LUNGS: There is dense consolidation in the right mid lung and lower lobe. There is also confluent airspace disease in the lingula and left lower lobe. PLEURA: No significant pleural effusion identified, no pneumothorax apparent. CARDIOVASCULAR: Normal. OSSEOUS STRUCTURES: No significant abnormalities. VISUALIZED UPPER ABDOMEN: Normal. OTHER FINDINGS: None. IMPRESSION: Endotracheal tube terminates 2.5 cm proximal to the geetha. Multifocal consolidation in the lungs, worse in the right mid lung and lower lobe which may represent multifocal pneumonia or pulmonary edema. Clinical correlation and follow-up is advised.
--- NOTE | 2017-09-07 10:19 | RAD ---
HISTORY: eval for ARDS COMPARISON: 09/07/2017 at 5:29 a.m. FINDINGS: Endotracheal tube terminates 5.5 cm proximal to the geetha. LUNGS: There is no significant interval change in consolidative changes in both lungs with relative sparing of the upper lobes, worse in the right lower lobe. PLEURA: No significant pleural effusion identified, no pneumothorax apparent. CARDIOVASCULAR: Normal. OSSEOUS STRUCTURES: No significant abnormalities. VISUALIZED UPPER ABDOMEN: Normal. OTHER FINDINGS: None. IMPRESSION: No change in multifocal consolidation versus pulmonary edema, worse in the right lower lobe.
--- NOTE | 2017-09-07 10:48 | PCM.PROC ---
Procedures Attestation:: I certify that I have explained the specified Operation(s) or Procedure(s), risks, benefits and reasonable alternatives to the Patient and/or other person responsible. The opportunity was given to ask questions and all questions answered - Central Line Placement Right Femoral Triple Lumen Catheter Aseptic technique was employed throughout the procedure: Hand Hygiene done prior to procedure, Full sterile barriers (mask, hair cover, sterile gown, sterile gloves), Full body sterile drape, Chloraprep Antiseptic: 2 minute prep for Femoral Pt. Placed on Pulse Ox Monitor: Yes Central Line Prep: Chlorhexidine-Alcohol Combination Ultrasound Used for Placement: Yes Central Line Lumen Inserted: triple Central Line Length: 16 cm Post Procedure: Sutured in Place, Good Blood Return, All Ports Aspirated, Flushed, Capped, Sterile Dressing Applied Secured by: Securement device Post procedure dressing: Gauze, Clear vapor permeable, Chlorhexidine disc ( Biopatch) Patient Tolerated Procedure: Well Immediate Complications: None
--- NOTE | 2017-09-07 10:52 | PCM.PROC ---
Procedures Attestation:: I certify that I have explained the specified Operation(s) or Procedure(s), risks, benefits and reasonable alternatives to the Patient and/or other person responsible. The opportunity was given to ask questions and all questions answered - Arterial Line Right Axillary Aseptic technique was employed throughout the procedure: Hand Hygiene done prior to procedure, Full sterile barriers (mask, hair cover, sterile gown, sterile gloves), Full body sterile drape, Chloraprep Antiseptic: 30 second prep for IJ or SC sites Time Out Performed: Yes Pt. placed on Pulse Ox Monitor: Yes Central Line Prep: Chlorhexidine-Alcohol Combination Local Anesthesia Used: Lidocaine 1% Ultrasound Used for Placement: Yes Technique Used: Guide Wire Technique Secured by: Suture Post procedure dressing: Clear vapor permeable Immediate Complications: none
--- NOTE | 2017-09-07 10:57 | CP.PCM.PN ---
<Spring Li - Last Filed: 09/07/17 10:54> Subjective - Date & Time of Evaluation Date of Evaluation: 09/07/17 Time of Evaluation: 10:54 - Subjective Subjective: ICU Progress Note for Billy Crawley PGY2 Patient seen and examined at bedside. He is intubated and sedated. ROS could not be obtained. Patient was noted to be in hypoxic respiratory failure overnight. He was intubated and transferred to ICU. Family was notified of the overnight events. Objective - Vital Signs/Intake and Output Vital Signs (last 24 hours): Temp Pulse Resp BP Pulse Ox 98.7 F 77 30 H 112/59 L 89 L 09/07/17 06:00 09/07/17 08:40 09/07/17 07:58 09/07/17 07:35 09/07/17 08:40 Intake and Output: 09/07/17 09/07/17 06:59 18:59 Intake Total 1847 55 Output Total 10 Balance 1837 55 - Medications Medications: Current Medications Albuterol/Ipratropium (Duoneb 3 Mg/0.5 Mg (3 Ml) Ud) 3 ml IH Q2H PRN PRN Reason: Shortness of Breath Last Admin: 09/07/17 04:25 Dose: 3 ml Albuterol/Ipratropium (Duoneb 3 Mg/0.5 Mg (3 Ml) Ud) 3 ml IH [id number] OLMAN Last Admin: 09/07/17 07:42 Dose: 3 ml Hydrocortisone Sodium Succinate (Solu-Cortef) 50 mg IVP Q8 OLMAN Vancomycin HCl (Vancomycin 1gm) 1 gm in 250 mls @ 167 mls/hr IVPB Q12H OLMAN PRN Reason: Protocol Last Admin: 09/07/17 01:31 Dose: 167 mls/hr Meropenem (Merrem Iv 1 Gm Premix) 50 mls @ 100 mls/hr IVPB Q8 OLMAN PRN Reason: Protocol Stop: 09/15/17 14:01 Last Admin: 09/07/17 06:36 Dose: 100 mls/hr Heparin Sodium/Sodium Chloride (Heparin 88554 Units/250ml 1/2 Normal Saline) 25 ,000 units in 250 mls @ 11.485 mls/hr IV .[id number] OLMAN; 12 UNITS/KG/HR PRN Reason: Protocol Last Admin: 09/06/17 18:14 Dose: 12 units/kg/hr, 11.485 mls/hr Propofol (Diprivan) 1,000 mg in 100 mls @ 2.871 mls/hr IV .Q24H PRN; Protocol; 5 MCG/KG/MIN PRN Reason: TITRATE PER MD ORDER Last Admin: 09/07/17 09:02 Dose: 40 mcg/kg/min, 22.97 mls/hr Azithromycin (Zithromax 500mg In Ns) 500 mg in 250 mls @ 167 mls/hr IVPB DAILY OLMAN PRN Reason: Protocol Trimethoprim/Sulfamethoxazole (485 mg/ Dextrose) 500 mls @ 250 mls/hr IVPB Q8 OLMAN Cisatracurium Besylate 200 mg/ (Sodium Chloride) 270 mls @ 7.91 mls/hr IV .Q24H PRN; Protocol; 1 MCG/KG/MIN PRN Reason: TITRATE PER MD ORDER Sodium Chloride (Sodium Chloride 0.9%) 1,000 mls @ 999 mls/hr IV .Q1H1M STA Stop: 09/07/17 11:13 NOREPINEPHRINE BIT/0.9 % NACL (Levophed 4 Mg/ 250 Ml Ns Premixed) 4 mg in 250 mls @ 15 mls/hr IV .[id number] PRN; Protocol; 4 MCG/MIN PRN Reason: TITRATE PER MD ORDER Vasopressin 20 units/ Sodium (Chloride) 101 mls @ 9.09 mls/hr IV .Q11H7M OLMAN; 0.03 U/MIN PRN Reason: Protocol Insulin Human Regular (Humulin R Med) 0 units SC ACHS OLMAN PRN Reason: Protocol Last Admin: 09/07/17 08:20 Dose: Not Given Pantoprazole Sodium (Protonix Inj) 40 mg IVP DAILY [facility] Last Admin: 09/07/17 09:32 Dose: 40 mg - Labs Labs: 09/07/17 06:35 09/07/17 06:35 PT 17.1 SECONDS (9.4-12.5) H 09/05/17 21:45 INR 1.49 (0.93-1.08) H 09/05/17 21:45 APTT 58.5 Seconds (25.1-36.5) H 09/07/17 06:35 - Constitutional Appears: Chronically Ill - Head Exam Head Exam: ATRAUMATIC, NORMAL INSPECTION, NORMOCEPHALIC - Eye Exam Eye Exam: PERRL Pupil Exam: PERRL - ENT Exam ENT Exam: Mucous Membranes Moist - Neck Exam Neck Exam: Full ROM - Respiratory Exam Respiratory Exam: Accessory Muscle Use, Decreased Breath Sounds (on RLL). absent: Rales, Rhonchi, Wheezes - Cardiovascular Exam Cardiovascular Exam: REGULAR RHYTHM, +S1, +S2. absent: Gallop, Rubs, Murmur - GI/Abdominal Exam GI & Abdominal Exam: Soft, Normal Bowel Sounds. absent: Rigid, Tenderness, Mass , Rebound - Extremities Exam Extremities Exam: Normal Inspection. absent: Calf Tenderness, Pedal Edema - Neurological Exam Neurological Exam: CN II-XII Intact - Skin Skin Exam: Dry, Warm Assessment and Plan - Assessment and Plan (Free Text) Assessment: This is 67 yr old male with PMH with CAD s/p 15 stents, COPD, rheumatoid arthritis found to be in hypoxic respiratory distress, ARDS, NSTEMI, community acquired pneumonia and septic shock secondary to urosepsis with positive blood cultures. Plan: Neuro: Intubated, Sedated on Propofol Maintain normothermia CV: NSTEMI, Hypotensive Troponin at 180 trending down to 115 Pt on Heparin drip Cardio on consult- unstable for cardiac cath at this time Pt on Levophed and Vasopressin Maintain MAP >65 Echo stat ordered Monitor I&O Pulm: Hypoxic Resp failure, Community acquired pneumonia, ARDS Low tidal vol ventilation, high PEEP Flolan Duonebs Paralytics to improve ventilation Protective Vent strategy HOB elevated, aspiration precaution Solucortef 50q8 GI: NPO Transaminitis- can be secondary to rhabdo Hold hepatotoxic agents GI prophylaxis Heme: Hgb stable- no overt signs of bleeding Nephro: EMMA, poor urine output Can be secondary to rhabdo Nephro consulted Monitor I&O Contintue to monitor electrolytes and replace as needed Maintain euvolemia ID: Urosepsis, Community Acquired pneumonia Blood culture and urine culture + for G- lauren Pt has hx of RA- will cover for PCP pneumonia ID on consult Continue Merrem, Zithomax, Bactrim, and Vanco Legionella and step pneumo pending Rapid flu negative Endo: Hx of DM ISS Maintain euglycemia GI ppx: Protonix DVT ppx: Heparin drip Case seen, discussed reviewed with attending. Billy Li PGY2 <Mack Hart - Last Filed: 09/07/17 17:09> Objective - Vital Signs/Intake and Output Vital Signs (last 24 hours): Temp Pulse Resp BP Pulse Ox 98 F 78 30 H 117/63 96 09/07/17 12:00 09/07/17 16:30 09/07/17 07:58 09/07/17 11:58 09/07/17 16:30 Intake and Output: 09/07/17 09/07/17 06:59 18:59 Intake Total 1847 405 Output Total 10 Balance 1837 405 - Medications Medications: Current Medications Albuterol/Ipratropium (Duoneb 3 Mg/0.5 Mg (3 Ml) Ud) 3 ml IH Q2H PRN PRN Reason: Shortness of Breath Last Admin: 09/07/17 04:25 Dose: 3 ml Albuterol/Ipratropium (Duoneb 3 Mg/0.5 Mg (3 Ml) Ud) 3 ml IH [id number] OLMAN Last Admin: 09/07/17 14:16 Dose: 3 ml Hydrocortisone Sodium Succinate (Solu-Cortef) 50 mg IVP Q8 OLMAN Last Admin: 09/07/17 14:21 Dose: 50 mg Vancomycin HCl (Vancomycin 1gm) 1 gm in 250 mls @ 167 mls/hr IVPB Q12H OLMAN PRN Reason: Protocol Last Admin: 09/07/17 11:34 Dose: 167 mls/hr Meropenem (Merrem Iv 1 Gm Premix) 50 mls @ 100 mls/hr IVPB Q8 OLMAN PRN Reason: Protocol Stop: 09/15/17 14:01 Last Admin: 09/07/17 14:21 Dose: 100 mls/hr Heparin Sodium/Sodium Chloride (Heparin 52576 Units/250ml 1/2 Normal Saline) 25 ,000 units in 250 mls @ 11.485 mls/hr IV .[id number] OLMAN; 12 UNITS/KG/HR PRN Reason: Protocol Last Admin: 09/06/17 18:14 Dose: 12 units/kg/hr, 11.485 mls/hr Propofol (Diprivan) 1,000 mg in 100 mls @ 2.871 mls/hr IV .Q24H PRN; Protocol; 5 MCG/KG/MIN PRN Reason: TITRATE PER MD ORDER Last Admin: 09/07/17 15:19 Dose: 35 mcg/kg/min, 20.099 mls/hr Azithromycin (Zithromax 500mg In Ns) 500 mg in 250 mls @ 167 mls/hr IVPB DAILY OLMAN PRN Reason: Protocol Last Admin: 09/07/17 11:26 Dose: 167 mls/hr Cisatracurium Besylate 200 mg/ (Sodium Chloride) 270 mls @ 7.91 mls/hr IV .Q24H PRN; Protocol; 1 MCG/KG/MIN PRN Reason: TITRATE PER MD ORDER Last Titration: 09/07/17 11:46 Dose: 2 mcg/kg/min, 15.82 mls/hr NOREPINEPHRINE BIT/0.9 % NACL (Levophed 4 Mg/ 250 Ml Ns Premixed) 4 mg in 250 mls @ 15 mls/hr IV .[id number] PRN; Protocol; 4 MCG/MIN PRN Reason: TITRATE PER MD ORDER Last Admin: 09/07/17 15:18 Dose: 20 mcg/min, 75 mls/hr Vasopressin 20 units/ Sodium (Chloride) 101 mls @ 9.09 mls/hr IV .Q11H7M OLMAN; 0.03 U/MIN PRN Reason: Protocol Last Admin: 09/07/17 11:58 Dose: 9.09 mls/hr EPOPROSTENOL 1.5 mg/ (Miscellaneous) 50 mls @ 7 mls/hr INH .Q7H9M OLMAN PRN Reason: Protocol Dobutamine HCl/Dextrose (Dobutamine/Dextrose 5% 500mg/250ml) 500 mg in 250 mls @ 7.327 mls/hr IV .Q24H PRN; Protocol; 2.5 MCG/KG/MIN PRN Reason: TITRATE PER PROTOCOL Last Admin: 09/07/17 12:18 Dose: 2.5 mcg/kg/min, 7.327 mls/hr Sodium Bicarbonate 75 meq/ (Sodium Chloride) 1,075 mls @ 75 mls/hr IV .[id number] ONE Stop: 09/08/17 04:21 Insulin Human Regular (Humulin R Med) 0 units SC ACHS OLMAN PRN Reason: Protocol Last Admin: 09/07/17 16:52 Dose: 7 units Pantoprazole Sodium (Protonix Inj) 40 mg IVP DAILY [facility] Last Admin: 09/07/17 09:32 Dose: 40 mg - Labs Labs: 09/07/17 06:35 09/07/17 06:35 PT 17.1 SECONDS (9.4-12.5) H 09/05/17 21:45 INR 1.49 (0.93-1.08) H 09/05/17 21:45 APTT 55.3 Seconds (25.1-36.5) H 09/07/17 12:30 Assessment and Plan - Assessment and Plan (Free Text) Plan: Patient seen and examined with resident, agree with note with following additions/exceptions: Patient is 67yo male with PMHx of CAD with 15 stents, RA on MTX, HTN, presented with NSTEMI, and gram negative bacteremia, subsequently went into respiratory failure, ARDS, septic/cardiogenic shock, requiring vasopressors. Pt was intubated, sedated, paralyzed, placed on low tidal vol (6cc/PBW). Currently intubated, sedated, paralyzed with Nimbex, on Levophed, and Vasopressin, Dobutamine. Bedside EF 20-25% on ECHO. Central line arterial line placed.Cardiology following. ABG with improvement in metabolic and resp acidosis , P/F ratio improving. Renal consulted, will place shiley for possible HD. Respiratory failure ARDS PNA RA on MTX NSTEMI Septic Shock Cardiogenic Shock Renal Failure Recommend: - cont with ventilatory support, low tidal vol ventilation, goal plateau<30, frequent ABG monitoring - cont with Nimbex for 24-48hours - IV steroids - Cont with broad spectrum antibiocs, Vanco, Merrem, Azithro, and Atovaqoune to cover for possible PCP - follow up repeat Blood culture, Procal - follow up ID - cont with Vasopressor Support, Levophed, Vasopressin, Dobutamine - place shiley cather for possible HD - ASA, Plavix, Statin, heparin drip - Follow up ECHO official results - Follow up Cardiology - FS control - GI ppx - DVT ppx patient at high risk for morbidity and mortality critical care time 70 minutes
--- NOTE | 2017-09-07 11:06 | CP.PCM.PN ---
<Michell Mcelroy - Last Filed: 09/07/17 12:50> Subjective - Date & Time of Evaluation Date of Evaluation: 09/07/17 Time of Evaluation: 11:00 - Subjective Subjective: Patient seen and examined at bedside. Patient's respiratory distress worsened overnight. Patient was placed on nasal canula and BiPAP as well as given 80 mg total of lasix overnight without improvement so patient was transferred to the ICU and intubated. Patient sedated on propofol drip and ROS unattainable. Objective - Vital Signs/Intake and Output Vital Signs (last 24 hours): Temp Pulse Resp BP Pulse Ox 98.7 F 77 30 H 112/59 L 89 L 09/07/17 06:00 09/07/17 08:40 09/07/17 07:58 09/07/17 07:35 09/07/17 08:40 Intake and Output: 09/07/17 09/07/17 06:59 18:59 Intake Total 1847 55 Output Total 10 Balance 1837 55 - Medications Medications: Current Medications Albuterol/Ipratropium (Duoneb 3 Mg/0.5 Mg (3 Ml) Ud) 3 ml IH Q2H PRN PRN Reason: Shortness of Breath Last Admin: 09/07/17 04:25 Dose: 3 ml Albuterol/Ipratropium (Duoneb 3 Mg/0.5 Mg (3 Ml) Ud) 3 ml IH [id number] OLMAN Last Admin: 09/07/17 07:42 Dose: 3 ml Hydrocortisone Sodium Succinate (Solu-Cortef) 50 mg IVP Q8 OLMAN Vancomycin HCl (Vancomycin 1gm) 1 gm in 250 mls @ 167 mls/hr IVPB Q12H OLMAN PRN Reason: Protocol Last Admin: 09/07/17 01:31 Dose: 167 mls/hr Meropenem (Merrem Iv 1 Gm Premix) 50 mls @ 100 mls/hr IVPB Q8 OLMAN PRN Reason: Protocol Stop: 09/15/17 14:01 Last Admin: 09/07/17 06:36 Dose: 100 mls/hr Heparin Sodium/Sodium Chloride (Heparin 01798 Units/250ml 1/2 Normal Saline) 25 ,000 units in 250 mls @ 11.485 mls/hr IV .[id number] OLMAN; 12 UNITS/KG/HR PRN Reason: Protocol Last Admin: 09/06/17 18:14 Dose: 12 units/kg/hr, 11.485 mls/hr Propofol (Diprivan) 1,000 mg in 100 mls @ 2.871 mls/hr IV .Q24H PRN; Protocol; 5 MCG/KG/MIN PRN Reason: TITRATE PER MD ORDER Last Admin: 09/07/17 09:02 Dose: 40 mcg/kg/min, 22.97 mls/hr Azithromycin (Zithromax 500mg In Ns) 500 mg in 250 mls @ 167 mls/hr IVPB DAILY OLMAN PRN Reason: Protocol Trimethoprim/Sulfamethoxazole (485 mg/ Dextrose) 500 mls @ 250 mls/hr IVPB Q8 OLMAN Cisatracurium Besylate 200 mg/ (Sodium Chloride) 270 mls @ 7.91 mls/hr IV .Q24H PRN; Protocol; 1 MCG/KG/MIN PRN Reason: TITRATE PER MD ORDER Sodium Chloride (Sodium Chloride 0.9%) 1,000 mls @ 999 mls/hr IV .Q1H1M STA Stop: 09/07/17 11:13 NOREPINEPHRINE BIT/0.9 % NACL (Levophed 4 Mg/ 250 Ml Ns Premixed) 4 mg in 250 mls @ 15 mls/hr IV .[id number] PRN; Protocol; 4 MCG/MIN PRN Reason: TITRATE PER MD ORDER Vasopressin 20 units/ Sodium (Chloride) 101 mls @ 9.09 mls/hr IV .Q11H7M OLMAN; 0.03 U/MIN PRN Reason: Protocol Insulin Human Regular (Humulin R Med) 0 units SC ACHS OLMAN PRN Reason: Protocol Last Admin: 09/07/17 08:20 Dose: Not Given Pantoprazole Sodium (Protonix Inj) 40 mg IVP DAILY [facility] Last Admin: 09/07/17 09:32 Dose: 40 mg - Labs Labs: 09/07/17 06:35 09/07/17 06:35 PT 17.1 SECONDS (9.4-12.5) H 09/05/17 21:45 INR 1.49 (0.93-1.08) H 09/05/17 21:45 APTT 58.5 Seconds (25.1-36.5) H 09/07/17 06:35 - Constitutional Appears: Other (intubated and sedated ) - Head Exam Head Exam: ATRAUMATIC, NORMAL INSPECTION, NORMOCEPHALIC - Eye Exam Eye Exam: PERRL (sluggish ) - Respiratory Exam Respiratory Exam: Clear to Ausculation Bilateral Additional comments: mechanically ventilated - Cardiovascular Exam Cardiovascular Exam: RRR, +S1, +S2 - GI/Abdominal Exam GI & Abdominal Exam: Soft, Normal Bowel Sounds. absent: Distended - Extremities Exam Extremities Exam: Normal Inspection - Neurological Exam Additional comments: sedated - Skin Skin Exam: Dry, Intact, Normal Color, Warm Assessment and Plan - Assessment and Plan (Free Text) Assessment: 67yo male with PMH of CAD s/p 15 stents, COPD, GERD, NIDDM, rheumatoid arthritis who presented with substernal chest pain and was found to have elevated troponins with rhabdomyolysis, UTI, sepsis, possible pneumonia per CT scan. Patient was transferred to ICU on 09/07/17 for respiratory distress with metabolic acidosis. Plan: NSTEMI * troponin elevated * Cardiology (Dr. Arias) following, recs appreciated * Cardiac cath possibly today * Echo pending * ASA * heparin drip * lasix as BP tolerates * zetia * holding Beta blockers 2/2 hypotension * holding crestor 2/2 rhabdo Respiratory failure * pneumonia vs acute decompensated CHF vs. history of COPD * intubated and sedated on propofol drip * CT chest: New alveolar and interstitial infiltrates are seen in both lower lobes as well as the right upper lobe. This is superimposed upon chronic emphysematous changes * ABG showing metabolic acidosis * f/u legionella, strep pneumo, MRSA * duonebs OLMAN and PRN * lasix prn * Vanc, azithromycin, meropenem UTI * leukoctosis * UA showing elevated leuk esterase and nitrate * blood cultures showing GNR * urine culture showing GNR * abx Gram negative sepsis * leukoctosis * lactate elevated * blood cultures positive for gram neg lauren * Urine cultures positive for gram neg lauren * ID consulted, recs appreciated * abx Left inguinal hernia * CT abd/pel:There is a 5 cm diameter left inguinal hernia that contains a portion of the sigmoid colon. There is no obstruction * not causing problems at this time Hypotension * Improving with gentle fluids with care not to fluid overload * Maintain MAP above 60 * holding beta adali for now Rhabdo * gentle hydration Immunocompromised 2/2 RA * Bactrim for PCP ppx PPX * GI protonix * DVT heparin drip <Susan Poole - Last Filed: 09/07/17 16:56> Objective - Vital Signs/Intake and Output Vital Signs (last 24 hours): Temp Pulse Resp BP Pulse Ox 98 F 78 30 H 117/63 96 09/07/17 12:00 09/07/17 16:30 09/07/17 07:58 09/07/17 11:58 09/07/17 16:30 Intake and Output: 09/07/17 09/07/17 06:59 18:59 Intake Total 1847 405 Output Total 10 Balance 1837 405 - Medications Medications: Current Medications Albuterol/Ipratropium (Duoneb 3 Mg/0.5 Mg (3 Ml) Ud) 3 ml IH Q2H PRN PRN Reason: Shortness of Breath Last Admin: 09/07/17 04:25 Dose: 3 ml Albuterol/Ipratropium (Duoneb 3 Mg/0.5 Mg (3 Ml) Ud) 3 ml IH [id number] OLMAN Last Admin: 09/07/17 14:16 Dose: 3 ml Hydrocortisone Sodium Succinate (Solu-Cortef) 50 mg IVP Q8 OLMAN Last Admin: 09/07/17 14:21 Dose: 50 mg Vancomycin HCl (Vancomycin 1gm) 1 gm in 250 mls @ 167 mls/hr IVPB Q12H OLMAN PRN Reason: Protocol Last Admin: 09/07/17 11:34 Dose: 167 mls/hr Meropenem (Merrem Iv 1 Gm Premix) 50 mls @ 100 mls/hr IVPB Q8 OLMAN PRN Reason: Protocol Stop: 09/15/17 14:01 Last Admin: 09/07/17 14:21 Dose: 100 mls/hr Heparin Sodium/Sodium Chloride (Heparin 43860 Units/250ml 1/2 Normal Saline) 25 ,000 units in 250 mls @ 11.485 mls/hr IV .[id number] OLMAN; 12 UNITS/KG/HR PRN Reason: Protocol Last Admin: 09/06/17 18:14 Dose: 12 units/kg/hr, 11.485 mls/hr Propofol (Diprivan) 1,000 mg in 100 mls @ 2.871 mls/hr IV .Q24H PRN; Protocol; 5 MCG/KG/MIN PRN Reason: TITRATE PER MD ORDER Last Admin: 09/07/17 15:19 Dose: 35 mcg/kg/min, 20.099 mls/hr Azithromycin (Zithromax 500mg In Ns) 500 mg in 250 mls @ 167 mls/hr IVPB DAILY OLMAN PRN Reason: Protocol Last Admin: 09/07/17 11:26 Dose: 167 mls/hr Cisatracurium Besylate 200 mg/ (Sodium Chloride) 270 mls @ 7.91 mls/hr IV .Q24H PRN; Protocol; 1 MCG/KG/MIN PRN Reason: TITRATE PER MD ORDER Last Titration: 09/07/17 11:46 Dose: 2 mcg/kg/min, 15.82 mls/hr NOREPINEPHRINE BIT/0.9 % NACL (Levophed 4 Mg/ 250 Ml Ns Premixed) 4 mg in 250 mls @ 15 mls/hr IV .[id number] PRN; Protocol; 4 MCG/MIN PRN Reason: TITRATE PER MD ORDER Last Admin: 09/07/17 15:18 Dose: 20 mcg/min, 75 mls/hr Vasopressin 20 units/ Sodium (Chloride) 101 mls @ 9.09 mls/hr IV .Q11H7M OLMAN; 0.03 U/MIN PRN Reason: Protocol Last Admin: 09/07/17 11:58 Dose: 9.09 mls/hr EPOPROSTENOL 1.5 mg/ (Miscellaneous) 50 mls @ 7 mls/hr INH .Q7H9M OLMAN PRN Reason: Protocol Dobutamine HCl/Dextrose (Dobutamine/Dextrose 5% 500mg/250ml) 500 mg in 250 mls @ 7.327 mls/hr IV .Q24H PRN; Protocol; 2.5 MCG/KG/MIN PRN Reason: TITRATE PER PROTOCOL Last Admin: 09/07/17 12:18 Dose: 2.5 mcg/kg/min, 7.327 mls/hr Sodium Bicarbonate 75 meq/ (Sodium Chloride) 1,075 mls @ 75 mls/hr IV .[id number] ONE Stop: 09/08/17 04:21 Insulin Human Regular (Humulin R Med) 0 units SC ACHS OLMAN PRN Reason: Protocol Last Admin: 09/07/17 12:32 Dose: Not Given Pantoprazole Sodium (Protonix Inj) 40 mg IVP DAILY OLMAN Last Admin: 09/07/17 09:32 Dose: 40 mg - Labs Labs: 09/07/17 06:35 09/07/17 06:35 PT 17.1 SECONDS (9.4-12.5) H 09/05/17 21:45 INR 1.49 (0.93-1.08) H 09/05/17 21:45 APTT 55.3 Seconds (25.1-36.5) H 09/07/17 12:30 Attending/Attestation - Attestation I have personally seen and examined this patient.: Yes I have fully participated in the care of the patient.: Yes I have reviewed all pertinent clinical information, including history, physical exam and plan: Yes Notes (Text): 09/07/17 16:52 67 year old male with past medical history of CAD s/p stents, COPD, diabetes and RA who presented with complaint of chest pain and chills. He was found to have NSTEMI, rhabdomyolysis, pneumonia, possibly UTI and elevated LFTs. He was intubated for hypoxic respiratory distress overnight. Continue with aspirin and heparin drip. Statin is on hold due to elevated LFTs. BB is on hold due to hypotension. He is on bicarb drip for metabolic acidosis. Continue with iv antibiotics as per ID. GNRs noted in blood cultures. Will follow up with cardiology and nephrology recommendations. Susan Poole MD Hospitalist.
[2017-09-07] MEDS ORDERED: PREMIXED INH SCH (11:15)
[2017-09-07] MEDS ORDERED: EPOPROSTENOL INH SCH (11:15)
[2017-09-07] MEDS: DEXTROSE 5% IVPB SCH ×2 (11:22→15:14)
[2017-09-07] MEDS: WATER IVPB SCH ×2 (11:22→15:14)
[2017-09-07] MEDS: TRIMETHOPRIM IVPB SCH ×2 (11:22→15:14)
[2017-09-07] MEDS: SULFAMETHOXAZOLE IVPB SCH ×2 (11:22→15:14)
[2017-09-07] MEDS: NOREPINEPHRINE BIT/0.9 % NACL 4 MG/250 ML BAG IV PRN ×3 (11:24→18:13)
[2017-09-07] MEDS: Cisatracurium Besylate 200 MG in Sodium Chloride 0.9% 250 ML IV PRN (11:25)
[2017-09-07] MEDS: Azithromycin 500MG/NS 250ml 500 MG/250 ML BAG IVPB SCH (11:26)
[2017-09-07 12:12] LABS: ARTERIAL BLOOD GAS O2 SAT 93.3 % (95-98); ARTERIAL BLOOD GAS PCO2 78 mm/Hg (35-45); ARTERIAL BLOOD GAS TCO2 18.4 mmol.L (22-28)
[2017-09-07 12:13] LABS: ARTERIAL BLOOD GAS PH 6.92 (7.35-7.45)
[2017-09-07] MEDS: DOBUTamine 500mg/250ml D5W 500 MG/250 ML BAG IV PRN (12:18)
--- NOTE | 2017-09-07 12:57 | CARD ---
APPROVED REPORT EKG Measurement Heart [id number] <Conclusion> Normal sinus rhythm Right bundle branch block ST-T Changes.
--- NOTE | 2017-09-07 12:57 | PN ---
DATE: 09/07/2017 REASON FOR CONSULTATION: Cardiac evaluation, history of coronary artery disease, admitted with fever, chills, sepsis, chest pain, non-ST segment myocardial infarction, pneumonia, septic shock, Gram negative sepsis. 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 PHYSICAL EXAMINATION: GENERAL: Intubated getting A-line now, on vent. Possible ARDS, going to ARDS, sepsis septic shock. VITAL SIGNS: As follows; temperature 99, heart rate 77, blood pressure 112/59. HEENT: PERRLA. Extraocular muscles intact. NECK: Supple. No carotid bruits or thyromegaly. CHEST: Clear to auscultation. Decreased air entry at the bases. HEART: S1 and S2 regular. ABDOMEN: Soft. EXTREMITIES: Clubbing and cyanosis negative. LABORATORY DATA: Blood cultures growing Gram negative lauren. Blood work up as follows; WBC 26.6, hemoglobin 13.1, hematocrit 42.5, platelet count 257. Chemistry shows sodium 138, potassium 4.7, chloride 90, carbon dioxide 23, anion gap of 23, BUN 35, creatinine 1.6, troponin 1.15. CPK 2374, procalcitonin 49.8. Blood culture showing Gram negative rods. CT chest possible right lower lobe pneumonia. IMPRESSION: Sepsis, septic shock, right lower lobe pneumonia, urinary tract infection, Gram negative sepsis, non-ST segment myocardial infarction, rheumatoid arthritis, immunocompromised, respiratory failure, history of coronary artery disease, history of multiple stent, chest x-ray consistent with right lower lobe pneumonia and pictures showed acute respiratory distress syndrome type, history of atrial fibrillation status post SURAJ cardioversion, was on Eliquis. Last catheterization and stent in right coronary artery 03/01/2015, rule out in stent restenosis. RECOMMENDATION: Continue vent management. 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 Continue heparin. Continue beta adali as blood pressure is tolerated. Continue vent management. If patient is hypotensive consider Levophed. 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 We will discuss with the family. We will follow with you and assess day by day. When the patient's shock symptoms improve, consider cardiac catheterization, but not a candidate to go . We will discuss with the . As mentioned, once the patient stabilizes and the sepsis is controlled, we will consider cardiac catheterization. Further recommendation upon the hospital course. We will follow with you. Overall, patient's condition is critical. Gracia Arias MD
--- NOTE | 2017-09-07 13:15 | CARD ---
APPROVED REPORT EKG Measurement Heart [id number] <Conclusion> Normal sinus rhythm Low voltage QRS Right bundle branch block Left anterior fascicular block Cannot rule out Anteroseptal infarct, age undetermined Abnormal ECG
[2017-09-07 13:45] LABS: ARTERIAL BLOOD GAS HCO3 15.3 mmol/L (21-28); ARTERIAL BLOOD GAS HEMOGLOBIN 12.6 g/dL (11.7-17.4); ARTERIAL BLOOD GAS O2 CAPACITY 17.3 mL/dl (16-24); ARTERIAL BLOOD GAS O2 CONTENT 16.3 ML/dl (15-23); ARTERIAL BLOOD GAS O2 SAT 94.1 % (95-98); ARTERIAL BLOOD GAS PCO2 54 mm/Hg (35-45)
[2017-09-07 13:47] LABS: ARTERIAL BLOOD GAS PH 7.06 (7.35-7.45)
[2017-09-07 16:08] LABS: ARTERIAL BLOOD GAS HCO3 13.7 mmol/L (21-28); ARTERIAL BLOOD GAS HEMOGLOBIN 12.6 g/dL (11.7-17.4); ARTERIAL BLOOD GAS O2 CAPACITY 17.3 mL/dl (16-24); ARTERIAL BLOOD GAS O2 CONTENT 17.2 ML/dl (15-23); ARTERIAL BLOOD GAS O2 SAT 99.3 % (95-98); ARTERIAL BLOOD GAS PCO2 44 mm/Hg (35-45); ARTERIAL BLOOD GAS TCO2 15.1 mmol.L (22-28)
[2017-09-07] MEDS ORDERED: Sodium Bicarbonate (8.4%) 50 Meq Syringe IVP ONE ×2 (16:12→16:47)
--- NOTE | 2017-09-07 16:55 | CP.PCM.CON ---
History of Present Illness - History of Present Illness History of Present Illness: Initial Nephrology Consultation: Assessment: critical oligoanuric Acute Kidney Injury (N17.9) likely due to shock (sepsis + cardiogenic) combined respi and metabolic acidosis with lactic acidosis with acute hypoxic hypercapnic respi failure acute CHF with cardiogenic shock with acute MS UTI with sepsis and shock DM, HTN, CAD s/p stent, COPD with emphysema and active smoker Plan likely will need renal replacement therapy once hemodynamically stable. he is unstable to tolerated dialysis at this time. No ACEI/ARB due to EMMA Monitor Input/Output, daily weights and renal function with basic metabolic panel consider alternative to bactrim as GFR likely <10 lower IVF (bicarb drip) to 75 ml/hr . can give IVP sodium bicarb 50 meq as needed to keep pH ~ 7.20 and above IV lasix 40-80 mg as needed if allowed by BP. Dose meds/antibiotics for reduced GFR <10. Avoid fleets enema/magnesium based laxatives. Avoid nephrotoxins/NSAIDs/ iodinated contrast (unless needed emergently) Glycemic control Further work up/management as per primary team overall prognosis guarded. Thanks for allowing me to participate in care of your patient. Will follow patient with you. Please call if any Qs. d/w team and Dr Hema Driscoll Office: [phone] Chief Complaint; unable reason for consult: EMMA HPI: Pt is a 67 M with hx of diabetes Mellitus ( years), hypertension (years), CAD s/p stent, COPD with emphysema, active smoker initially presented with complaints of nausea/vomitting but had UTI sepsis and shock complicated by Acute MS and cardiogenic shock, pneumonia and pulmonary edema, respi failure renal consult for EMMA No recent iodinated contrast exposure. had obvious episodes of low BP. ROS: unable Physical Examination: General Appearance: ill appearing, orally intubated. on 3 pressors. levophed vaso and dobutamine. O2 sat 95% on 100% FiO2 and PEEP 10 Vitals reviewed and noted as below Head; Atraumatic, normocephalic ENT: orally intubated EYES: Sclera is anicteric. Neck; supple no lymphadenopathy, no thyromegaly or bruit Lungs: Increased respiratory rate/effort. Breath sounds bilateral decreased at bases anteriorly. he is mechanically ventilated Heart: Increased rate. s1s2 normal. No rub or gallop. Extremities: no edema. No varicose veins Neurological: Patient is sedated Skin: Warm and dry. Normal turgor. No rash. Palpitation: Normal elasticity for age Abdomen: Abdomen is soft. Bowel sounds +. There is no abdominal tenderness, no guarding/rigidity no organomegaly Psych: unable MSK: no joint tenderness or swelling. Digits and nails normal, no deformity : kidney or bladder not palpable. has berumen Labs/imaging reviewed. Past medical history, past surgical history, family history, social history, allergy reviewed and noted as below Family hx: no hx of CKD. Rest non-contributory Past Patient History - Infectious Disease Hx of Infectious Diseases: None - Tetanus Immunizations Tetanus Immunization: Unknown - Past Social History Smoking Status: Heavy Smoker > 10 Cigarettes Daily Alcohol: None Drugs: Denies Home Situation {Lives}: With Family - CARDIAC Hx Cardiac Disorders: Yes Hx Cardia Arrhythmia: Yes (afib) Hx Hypercholesterolemia: Yes Hx Hypertension: Yes - PULMONARY Hx Respiratory Disorders: Yes Hx Bronchitis: Yes Hx Chronic Obstructive Pulmonary Disease (COPD): Yes Hx Pneumonia: Yes - NEUROLOGICAL Hx Neurological Disorder: No - HEENT Hx HEENT Problems: Yes (wears glasses) - RENAL Hx Chronic Kidney Disease: No - ENDOCRINE/METABOLIC Hx Endocrine Disorders: No - HEMATOLOGICAL/ONCOLOGICAL Hx Blood Disorders: No - INTEGUMENTARY Hx Dermatological Problems: No - MUSCULOSKELETAL/RHEUMATOLOGICAL Hx Musculoskeletal Disorders: Yes Hx Arthritis: Yes (RA) Hx Falls: No Hx Unsteady Gait: No - GASTROINTESTINAL Hx Gastrointestinal Disorders: Yes Hx Gall Bladder Disease: Yes (gallstones) Hx Pancreatitis: Yes - GENITOURINARY/GYNECOLOGICAL Hx Genitourinary Disorders: No - PSYCHIATRIC Hx Psychophysiologic Disorder: Yes Hx Anxiety: Yes Hx Substance Use: No - SURGICAL HISTORY Hx Surgeries: Yes (right hand knucle replacement) Hx Amputation: Yes (left 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) Hx Cholecystectomy: Yes Hx Coronary Stent: Yes (x 15) Other/Comment: Bilateral knees: ACL repair - ANESTHESIA Hx Anesthesia: Yes Hx Anesthesia Reactions: No Hx Malignant Hyperthermia: No Meds Allergies/Adverse Reactions: Allergies Allergy/AdvReac Type Severity Reaction Status Date / Time No Known Allergies Allergy Verified 05/04/17 13:00 - Medications Medications: Current Medications Albuterol/Ipratropium (Duoneb 3 Mg/0.5 Mg (3 Ml) Ud) 3 ml IH Q2H PRN PRN Reason: Shortness of Breath Last Admin: 09/07/17 04:25 Dose: 3 ml Albuterol/Ipratropium (Duoneb 3 Mg/0.5 Mg (3 Ml) Ud) 3 ml IH [id number] OLMAN Last Admin: 09/07/17 14:16 Dose: 3 ml Hydrocortisone Sodium Succinate (Solu-Cortef) 50 mg IVP Q8 OLMAN Last Admin: 09/07/17 14:21 Dose: 50 mg Vancomycin HCl (Vancomycin 1gm) 1 gm in 250 mls @ 167 mls/hr IVPB Q12H OLMAN PRN Reason: Protocol Last Admin: 09/07/17 11:34 Dose: 167 mls/hr Meropenem (Merrem Iv 1 Gm Premix) 50 mls @ 100 mls/hr IVPB Q8 OLMAN PRN Reason: Protocol Stop: 09/15/17 14:01 Last Admin: 09/07/17 14:21 Dose: 100 mls/hr Heparin Sodium/Sodium Chloride (Heparin 09378 Units/250ml 1/2 Normal Saline) 25 ,000 units in 250 mls @ 11.485 mls/hr IV .[id number] OLMAN; 12 UNITS/KG/HR PRN Reason: Protocol Last Admin: 09/06/17 18:14 Dose: 12 units/kg/hr, 11.485 mls/hr Propofol (Diprivan) 1,000 mg in 100 mls @ 2.871 mls/hr IV .Q24H PRN; Protocol; 5 MCG/KG/MIN PRN Reason: TITRATE PER MD ORDER Last Admin: 09/07/17 15:19 Dose: 35 mcg/kg/min, 20.099 mls/hr Azithromycin (Zithromax 500mg In Ns) 500 mg in 250 mls @ 167 mls/hr IVPB DAILY OLMAN PRN Reason: Protocol Last Admin: 09/07/17 11:26 Dose: 167 mls/hr Cisatracurium Besylate 200 mg/ (Sodium Chloride) 270 mls @ 7.91 mls/hr IV .Q24H PRN; Protocol; 1 MCG/KG/MIN PRN Reason: TITRATE PER MD ORDER Last Titration: 09/07/17 11:46 Dose: 2 mcg/kg/min, 15.82 mls/hr NOREPINEPHRINE BIT/0.9 % NACL (Levophed 4 Mg/ 250 Ml Ns Premixed) 4 mg in 250 mls @ 15 mls/hr IV .[id number] PRN; Protocol; 4 MCG/MIN PRN Reason: TITRATE PER MD ORDER Last Admin: 09/07/17 15:18 Dose: 20 mcg/min, 75 mls/hr Vasopressin 20 units/ Sodium (Chloride) 101 mls @ 9.09 mls/hr IV .[id number] OLMAN; 0.03 U/MIN PRN Reason: Protocol Last Admin: 09/07/17 11:58 Dose: 9.09 mls/hr EPOPROSTENOL 1.5 mg/ (Miscellaneous) 50 mls @ 7 mls/hr INH .Q7H9M OLMAN PRN Reason: Protocol Dobutamine HCl/Dextrose (Dobutamine/Dextrose 5% 500mg/250ml) 500 mg in 250 mls @ 7.327 mls/hr IV .Q24H PRN; Protocol; 2.5 MCG/KG/MIN PRN Reason: TITRATE PER PROTOCOL Last Admin: 09/07/17 12:18 Dose: 2.5 mcg/kg/min, 7.327 mls/hr Sodium Bicarbonate 75 meq/ (Sodium Chloride) 1,075 mls @ 75 mls/hr IV .[id number] ONE Stop: 09/08/17 04:21 Insulin Human Regular (Humulin R Med) 0 units SC ACHS OLMAN PRN Reason: Protocol Last Admin: 09/07/17 12:32 Dose: Not Given Pantoprazole Sodium (Protonix Inj) 40 mg IVP DAILY [facility] Last Admin: 09/07/17 09:32 Dose: 40 mg Results - Vital Signs Recent Vital Signs: Last Vital Signs Temp 98 F 09/07/17 12:00 Pulse 78 09/07/17 16:30 Resp 30 H 09/07/17 07:58 BP 117/63 09/07/17 11:58 Pulse Ox 96 09/07/17 16:30 - Labs Result Diagrams: 09/07/17 06:35 09/07/17 06:35 Labs: Laboratory Results - last 24 hr 09/06/17 09/06/17 09/07/17 20:26 21:19 00:20 WBC RBC Hgb Hct MCV MCH MCHC RDW Plt Count MPV Gran % Lymph % (Auto) Lane % (Auto) Eos % (Auto) Baso % (Auto) Gran # Lymph # (Auto) Lane # (Auto) Eos # (Auto) Baso # (Auto) APTT 63.5 H pCO2 pO2 HCO3 ABG pH ABG Total CO2 ABG O2 Saturation ABG O2 Content ABG Base Excess ABG Hemoglobin ABG Carboxyhemoglobin POC ABG HHb (Measured) ABG Methemoglobin ABG O2 Capacity ABG Potassium Hgb O2 Saturation Glucose Lactate Mechanical Rate FiO2 Tidal Volume PEEP Sodium Potassium Chloride Carbon Dioxide Anion Gap BUN Creatinine Est GFR ( Amer) Est GFR (Non-Af Amer) POC Glucose (mg/dL) 184 H 201 H Random Glucose Calcium Phosphorus Magnesium Total Bilirubin AST ALT Alkaline Phosphatase Lactate Dehydrogenase Total Creatine Kinase CK-MB (CK-2) CK-MB (CK-2) % Troponin I Total Protein Albumin Globulin Albumin/Globulin Ratio Arterial Blood Potassium Ur L.pneumophila Ag 09/07/17 09/07/17 09/07/17 06:35 06:35 06:35 WBC 26.6 H* RBC 4.53 Hgb 13.9 L Hct 42.5 MCV 93.8 MCH 30.7 MCHC 32.7 RDW 15.3 H Plt Count 257 MPV 11.2 H Gran % 93.9 H Lymph % (Auto) 3.[address] % (Auto) 2.8 Eos % (Auto) 0.0 L Baso % (Auto) 0.1 Gran # 24.98 H Lymph # (Auto) 0.[address] # (Auto) 0.7 H Eos # (Auto) 0.0 Baso # (Auto) 0.02 APTT 58.5 H pCO2 pO2 HCO3 ABG pH ABG Total CO2 ABG O2 Saturation ABG O2 Content ABG Base Excess ABG Hemoglobin ABG Carboxyhemoglobin POC ABG HHb (Measured) ABG Methemoglobin ABG O2 Capacity ABG Potassium Hgb O2 Saturation Glucose Lactate Mechanical Rate FiO2 Tidal Volume PEEP Sodium 138 Potassium 4.7 Chloride 102 Carbon Dioxide 19 L Anion Gap 23 H BUN 35 H Creatinine 1.6 H Est GFR ( Amer) 52 Est GFR (Non-Af Amer) 43 POC Glucose (mg/dL) Random Glucose 301 H* D Calcium 9.1 Phosphorus 7.3 H Magnesium 1.7 Total Bilirubin 0.7 AST 415 H D ALT 131 H Alkaline Phosphatase 80 Lactate Dehydrogenase 3924 H Total Creatine Kinase 2374 H CK-MB (CK-2) 61.4 H CK-MB (CK-2) % 2.6 Troponin I 115.00 H* D Total Protein 7.3 Albumin 3.8 Globulin 3.5 Albumin/Globulin Ratio 1.1 Arterial Blood Potassium Ur L.pneumophila Ag 09/07/17 09/07/17 09/07/17 06:50 07:35 09:00 WBC RBC Hgb Hct MCV MCH MCHC RDW Plt Count MPV Gran % Lymph % (Auto) Lane % (Auto) Eos % (Auto) Baso % (Auto) Gran # Lymph # (Auto) Lane # (Auto) Eos # (Auto) Baso # (Auto) APTT pCO2 40 pO2 58.0 L HCO3 13.6 L ABG pH 7.14 L* ABG Total CO2 14.8 L ABG O2 Saturation 88.6 L ABG O2 Content ABG Base Excess -14.8 L ABG Hemoglobin ABG Carboxyhemoglobin POC ABG HHb (Measured) ABG Methemoglobin ABG O2 Capacity ABG Potassium 3.7 Hgb O2 Saturation Glucose 241 H Lactate 5.0 H* Mechanical Rate FiO2 100.0 Tidal Volume PEEP Sodium 140.0 Potassium Chloride 107.0 Carbon Dioxide Anion Gap BUN Creatinine Est GFR ( Amer) Est GFR (Non-Af Amer) POC Glucose (mg/dL) 208 H Random Glucose Calcium Phosphorus Magnesium Total Bilirubin AST ALT Alkaline Phosphatase Lactate Dehydrogenase Total Creatine Kinase CK-MB (CK-2) CK-MB (CK-2) % Troponin I Total Protein Albumin Globulin Albumin/Globulin Ratio Arterial Blood Potassium 3.7 Ur L.pneumophila Ag Negative 09/07/17 09/07/17 09/07/17 09:55 12:05 12:30 WBC RBC Hgb Hct MCV MCH MCHC RDW Plt Count MPV Gran % Lymph % (Auto) Lane % (Auto) Eos % (Auto) Baso % (Auto) Gran # Lymph # (Auto) Lane # (Auto) Eos # (Auto) Baso # (Auto) APTT 55.3 H pCO2 61 H 78 H* pO2 57.0 L 76.0 L HCO3 17.3 L 16.0 L ABG pH 7.06 L* 6.92 L* ABG Total CO2 19.2 L 18.4 L ABG O2 Saturation 87.7 L 93.3 L ABG O2 Content ABG Base Excess -13.5 L -17.7 L ABG Hemoglobin ABG Carboxyhemoglobin POC ABG HHb (Measured) ABG Methemoglobin ABG O2 Capacity ABG Potassium 5.5 H 5.0 Hgb O2 Saturation Glucose 260 H 297 H Lactate 5.4 H* 5.2 H* Mechanical Rate 30 FiO2 100.0 100.0 Tidal Volume 400 300 PEEP 20 20 Sodium 132.0 135.0 Potassium Chloride 106.0 104.0 Carbon Dioxide Anion Gap BUN Creatinine Est GFR ( Amer) Est GFR (Non-Af Amer) POC Glucose (mg/dL) Random Glucose Calcium Phosphorus Magnesium Total Bilirubin AST ALT Alkaline Phosphatase Lactate Dehydrogenase Total Creatine Kinase CK-MB (CK-2) CK-MB (CK-2) % Troponin I Total Protein Albumin Globulin Albumin/Globulin Ratio Arterial Blood Potassium 5.5 H 5.0 Ur L.pneumophila Ag 09/07/17 09/07/17 09/07/17 12:30 13:30 16:00 WBC RBC Hgb Hct MCV MCH MCHC RDW Plt Count MPV Gran % Lymph % (Auto) Lane % (Auto) Eos % (Auto) Baso % (Auto) Gran # Lymph # (Auto) Lane # (Auto) Eos # (Auto) Baso # (Auto) APTT pCO2 54 H 44 pO2 71.0 L 102.0 H HCO3 15.3 L 13.7 L ABG pH 7.06 L* 7.10 L* ABG Total CO2 17.0 L 15.1 L ABG O2 Saturation 94.1 L 99.3 H ABG O2 Content 16.3 17.2 ABG Base Excess -15.0 L -15.5 L ABG Hemoglobin 12.6 12.6 ABG Carboxyhemoglobin 1.8 H 1.8 H POC ABG HHb (Measured) 5.7 H 0.7 ABG Methemoglobin 0.8 1.2 ABG O2 Capacity 17.3 17.3 ABG Potassium Hgb O2 Saturation 91.7 L 96.3 Glucose Lactate Mechanical Rate FiO2 100.0 100.0 Tidal Volume PEEP Sodium Potassium Chloride Carbon Dioxide Anion Gap BUN Creatinine Est GFR ( Amer) Est GFR (Non-Af Amer) POC Glucose (mg/dL) 291 H Random Glucose Calcium Phosphorus Magnesium Total Bilirubin AST ALT Alkaline Phosphatase Lactate Dehydrogenase Total Creatine Kinase CK-MB (CK-2) CK-MB (CK-2) % Troponin I Total Protein Albumin Globulin Albumin/Globulin Ratio Arterial Blood Potassium Ur L.pneumophila Ag 09/07/17 16:26 WBC RBC Hgb Hct MCV MCH MCHC RDW Plt Count MPV Gran % Lymph % (Auto) Lane % (Auto) Eos % (Auto) Baso % (Auto) Gran # Lymph # (Auto) Lane # (Auto) Eos # (Auto) Baso # (Auto) APTT pCO2 pO2 HCO3 ABG pH ABG Total CO2 ABG O2 Saturation ABG O2 Content ABG Base Excess ABG Hemoglobin ABG Carboxyhemoglobin POC ABG HHb (Measured) ABG Methemoglobin ABG O2 Capacity ABG Potassium Hgb O2 Saturation Glucose Lactate Mechanical Rate FiO2 Tidal Volume PEEP Sodium Potassium Chloride Carbon Dioxide Anion Gap BUN Creatinine Est GFR ( Amer) Est GFR (Non-Af Amer) POC Glucose (mg/dL) 320 H Random Glucose Calcium Phosphorus Magnesium Total Bilirubin AST ALT Alkaline Phosphatase Lactate Dehydrogenase Total Creatine Kinase CK-MB (CK-2) CK-MB (CK-2) % Troponin I Total Protein Albumin Globulin Albumin/Globulin Ratio Arterial Blood Potassium Ur L.pneumophila Ag
[2017-09-07] MEDS: Heparin25000 units/250ml 1/2NS 25,000 UNITS/250 ML BAG IV SCH (18:12)
--- NOTE | 2017-09-07 18:23 | PCM.PROC ---
Procedures Attestation:: I certify that I have explained the specified Operation(s) or Procedure(s), risks, benefits and reasonable alternatives to the Patient and/or other person responsible. The opportunity was given to ask questions and all questions answered - Central Line Placement Left Femoral Hemodialysis Access Aseptic technique was employed throughout the procedure: Hand Hygiene done prior to procedure, Full sterile barriers (mask, hair cover, sterile gown, sterile gloves), Full body sterile drape, Chloraprep Antiseptic: 2 minute prep for Femoral CVP Time Out Performed: Yes Pt. Placed on Pulse Ox Monitor: Yes Central Line Prep: Chlorhexidine-Alcohol Combination Ultrasound Used for Placement: Yes Central Line Lumen Inserted: triple Central Line Length: 20 cm Post Procedure: Sutured in Place, Good Blood Return, All Ports Aspirated, Flushed, Capped, Sterile Dressing Applied Secured by: Suture Post procedure dressing: Gauze, Clear vapor permeable, Chlorhexidine disc ( Biopatch) Post Procedure X-Ray: No Patient Tolerated Procedure: Well Immediate Complications: None
--- NOTE | 2017-09-07 18:29 | CARD ---
APPROVED REPORT EXAM: Two-dimensional and M-mode echocardiogram with Doppler and color Doppler. INDICATION Chest Pain 2D DIMENSIONS IVSd1.4 (0.7-1.1cm)LVDd5.4 (3.9-5.9cm) PWd1.3 (0.7-1.1cm)LVDs4.7 (2.5-4.0cm) FS (%) 12.5 %LVEF (%)26.7 (>50%) M-Mode DIMENSIONS Aortic Root3.12 (2.2-3.7cm)Aortic Cusp Exc.1.58 (1.5-2.0cm) Aortic Valve AoV Peak Iremfexa001.0cm/Jc Peak GR.5mmHg Mitral Valve MV E Gryvblvp077.2cm/sMV DECEL [id number] A Wvxbltnt65.6cm/s E/A ratio1.9 TDI E/Lateral E'0.0E/Medial E'0.0 Tricuspid Valve TR Peak Pqxepwbl560fa/sTR Peak Gr.34mmHg LEFT VENTRICLE The Left Ventricle is borderline dilated. There is mild concentric left ventricular hypertrophy. The systolic function is moderately impaired.EF-25-30% Regional wall motion abnormalities noted, C/w CAD There is moderate global hypokinesis of the left ventricle. Transmitral Doppler flow pattern is Grade II-pseudonormal filling dynamics. No left ventricle thrombus noted on this study. There is no ventricular septal defect visualized. There is no left ventricular aneurysm. There is no mass noted in the left ventricle. RIGHT VENTRICLE The right ventricle is moderately dilated. There is normal right ventricular wall thickness. Systolic function is moderately reduced. ATRIA The left atrium is mildly dilated. The right atrium size is normal. The interatrial septum is intact with no evidence for an atrial septal defect. AORTIC VALVE The aortic valve is calcified and displays decreased opening. There is trace aortic regurgitation. There is no aortic valvular stenosis. There is no aortic valvular vegetation. MITRAL VALVE The mitral valve is thickened but opens well. Mitral annular calcification is mild to moderate. Mitral regurgitation is mild to moderate. There is no mitral valve stenosis. There is no evidence of mitral valve prolapse. TRICUSPID VALVE The tricuspid valve leaflets are thickened , but open well. There is mild tricuspid regurgitation.RVSP_34 mmof hg. There is no tricuspid valve stenosis. There is no tricuspid valve prolapse or vegetation. PULMONIC VALVE The pulmonary valve is normal in structure. There is trace pulmonic valvular regurgitation. There is no pulmonic valvular stenosis. GREAT VESSELS The aortic root is normal in size. The ascending aorta is normal in size. The pulmonary artery is normal. The IVC is dilated. PERICARDIAL EFFUSION There is no pleural effusion. There is no pericardial effusion. <Conclusion> The Left Ventricle is borderline dilated. There is mild concentric left ventricular hypertrophy. The systolic function is moderately impaired.EF-25-30% Regional wall motion abnormalities noted, C/w CAD There is moderate global hypokinesis of the left ventricle. There is trace aortic regurgitation. Mitral regurgitation is mild to moderate. There is mild tricuspid regurgitation.RVSP_34 mmof hg. The IVC is dilated. There is no pericardial effusion. No Vegetation noted.
--- NOTE | 2017-09-07 22:38 | PN ---
DATE: 09/07/2017 SUBJECTIVE: The patient is in bed, in no acute distress. OBJECTIVE: VITAL SIGNS: Temperature is 98.0, blood pressure is 120/70, and respiratory rate is 16. HEENT: Unremarkable. NECK: Supple. LUNGS: Have decreased breath sounds. HEART: Normal S1 and S2. ABDOMEN: Soft and nontender. LABORATORY DATA: Reveals the patient's white count of 26,000 and hemoglobin of 13. The patient's BUN of 35 and creatinine is 1.6. LFTs are elevated. Alk phos is normal. Procalcitonin is 49. Urinalysis is noted. Toxicology is noted. Serology is negative. Microbiology is a Gram-negative lauren in the blood and Gram-negative lauren in the urine. ASSESSMENT AND PLAN: This is a 67-year-old male who is seen early this morning in [facility], bed 5, intubated, on a ventilator, and currently with septic shock with Gram-negative lauren bacteremia secondary to Gram-negative lauren in the urine, respiratory failure, intubated on a ventilator and currently on meropenem. A dose of amikacin was given earlier today and awaiting for identification and sensitivity. The patient is on pressors with septic shock and the patient with a history of hypertension, atrial fibrillation, cardioversion, rheumatoid arthritis, chronic obstructive lung disease, tubular adenoma, obesity, dyslipidemia, pancreatitis, and must rule out underlying prostate disease. We will make further recommendations pending identification and sensitivity of the Gram-negative lauren. Prognosis is poor in this patient with Gram-negative lauren, septic shock. Azael Lara MD
[2017-09-08] MEDS: Albuterol-Ipratrop 3 mg / 0.5 (3 ml) UD IH SCH ×4 (03:39→20:00)
[2017-09-08] MEDS: Propofol 10 mg/ml 1,000 MG/100 ML VIAL IV PRN ×5 (03:53→21:52)
[2017-09-08] MEDS: Meropenem IV 1 gm in NS 50 ML IVPB SCH ×3 (05:50→21:18)
[2017-09-08 06:43] LABS: ARTERIAL BLOOD GAS HCO3 20.1 mmol/L (21-28); ARTERIAL BLOOD GAS O2 SAT 99.5 % (95-98); ARTERIAL BLOOD GAS PCO2 39 mm/Hg (35-45); ARTERIAL BLOOD GAS PH 7.32 (7.35-7.45); ARTERIAL BLOOD GAS TCO2 21.3 mmol.L (22-28)
[2017-09-08 06:56] LABS: GRAN # 11.2 (1.4-6.5); GRAN % 87.9 % (50.0-68.0); HEMOGLOBIN 11.3 g/dL (14.0-18.0); LYMPH # 1.1 (1.2-3.4); LYMPH % 8.3 % (22.0-35.0); MEAN CELL VOLUME 92.4 fl (80.0-105.0); MEAN CORPUSCULAR HEMOGLOBIN 29.7 pg (25.0-35.0); MEAN CORPUSCULAR HGB CONC 32.1 g/dl (31.0-37.0); MEAN PLATELET VOLUME 11.8 fl (7.0-11.0); MONO # 0.5 (0.1-0.6); MONO % 3.8 % (1.0-6.0); RBC 3.81 10^6/uL (3.5-6.1); WHITE BLOOD COUNT 12.8 10^3/ul (4.5-11.0)
[2017-09-08] MEDS: Insulin Reg-MEDIUM-Coverage SC SCH (08:04)
[2017-09-08] MEDS: Cisatracurium Besylate 200 MG in Sodium Chloride 0.9% 250 ML IV PRN (08:10)
[2017-09-08 08:15] LABS: CK MB% 1.4 % (2.5-3.0); TROPONIN I 51.7 ng/mL
--- NOTE | 2017-09-08 08:23 | RAD ---
HISTORY: intubated COMPARISON: 09/07/2017 FINDINGS: LUNGS: Extensive bilateral opacity predominantly in the lower half of each lung, unchanged. PLEURA: No significant pleural effusion identified, no pneumothorax apparent. CARDIOVASCULAR: ET tube unchanged. New NG tube extends beneath the left hemidiaphragm. The tip of the NG tube is not visualized on this examination. OSSEOUS STRUCTURES: No significant abnormalities. VISUALIZED UPPER ABDOMEN: Normal. OTHER FINDINGS: None. IMPRESSION: Extensive bilateral pulmonary infiltrates unchanged. New NG tube. ET tube unchanged.
[2017-09-08 08:26] LABS: CALCIUM 7.7 mg/dL (8.4-10.5)
--- NOTE | 2017-09-08 09:00 | CP.PCM.PN ---
<Michell Mcelroy - Last Filed: 09/08/17 14:04> Subjective - Date & Time of Evaluation Date of Evaluation: 09/08/17 Time of Evaluation: 08:57 - Subjective Subjective: Patient seen and examined at bedside. No acute events overnight per ICU resident. Fem dialysis catheter was placed for little urine output overnight. Patient unstable for cardiac cath but echo was ordered overnight. ROS unattainable at this time. Objective - Vital Signs/Intake and Output Vital Signs (last 24 hours): Temp Pulse Resp BP Pulse Ox 98.6 F 93 H 35 H 116/59 L 93 L 09/08/17 08:00 09/08/17 06:00 09/08/17 07:22 09/08/17 08:56 09/08/17 07:22 Intake and Output: 09/08/17 09/08/17 06:59 18:59 Intake Total 435 1847 Output Total 700 Balance 435 1147 - Medications Medications: Current Medications Albuterol/Ipratropium (Duoneb 3 Mg/0.5 Mg (3 Ml) Ud) 3 ml IH Q2H PRN PRN Reason: Shortness of Breath Last Admin: 09/07/17 04:25 Dose: 3 ml Albuterol/Ipratropium (Duoneb 3 Mg/0.5 Mg (3 Ml) Ud) 3 ml IH [id number] [facility] Last Admin: 09/08/17 07:13 Dose: 3 ml Hydrocortisone Sodium Succinate (Solu-Cortef) 50 mg IVP Q8 [facility] Last Admin: 09/08/17 05:50 Dose: 50 mg Meropenem (Merrem Iv 1 Gm Premix) 50 mls @ 100 mls/hr IVPB Q8 [facility] PRN Reason: Protocol Stop: 09/15/17 14:01 Last Admin: 09/08/17 05:50 Dose: 100 mls/hr Heparin Sodium/Sodium Chloride (Heparin 77496 Units/250ml 1/2 Normal Saline) 25 ,000 units in 250 mls @ 11.485 mls/hr IV .[id number] [facility]MAN; 12 UNITS/KG/HR PRN Reason: Protocol Last Admin: 09/07/17 18:12 Dose: 12 units/kg/hr, 11.485 mls/hr Propofol (Diprivan) 1,000 mg in 100 mls @ 2.871 mls/hr IV .Q24H PRN; Protocol; 5 MCG/KG/MIN PRN Reason: TITRATE PER MD ORDER Last Admin: 09/08/17 08:17 Dose: 50 mcg/kg/min, 28.712 mls/hr Azithromycin (Zithromax 500mg In Ns) 500 mg in 250 mls @ 167 mls/hr IVPB DAILY [facility] PRN Reason: Protocol Last Admin: 09/07/17 11:26 Dose: 167 mls/hr Cisatracurium Besylate 200 mg/ (Sodium Chloride) 270 mls @ 7.91 mls/hr IV .Q24H PRN; Protocol; 1 MCG/KG/MIN PRN Reason: TITRATE PER MD ORDER Last Titration: 09/08/17 08:20 Dose: 1.4 mcg/kg/min, 11.07 mls/hr NOREPINEPHRINE BIT/0.9 % NACL (Levophed 4 Mg/ 250 Ml Ns Premixed) 4 mg in 250 mls @ 15 mls/hr IV .[id number] PRN; Protocol; 4 MCG/MIN PRN Reason: TITRATE PER MD ORDER Last Titration: 09/08/17 05:00 Dose: 0 mcg/min, 0 mls/hr Vasopressin 20 units/ Sodium (Chloride) 101 mls @ 9.09 mls/hr IV .Q11H7M [facility]MAN; 0.03 U/MIN PRN Reason: Protocol Last Admin: 09/08/17 08:10 Dose: 9.09 mls/hr EPOPROSTENOL 1.5 mg/ (Miscellaneous) 50 mls @ 7 mls/hr INH .Q7H9M [facility] PRN Reason: Protocol Dobutamine HCl/Dextrose (Dobutamine/Dextrose 5% 500mg/250ml) 500 mg in 250 mls @ 7.327 mls/hr IV .Q24H PRN; Protocol; 2.5 MCG/KG/MIN PRN Reason: TITRATE PER PROTOCOL Last Admin: 09/07/17 12:18 Dose: 2.5 mcg/kg/min, 7.327 mls/hr Insulin Human Regular (Humulin R Med) 0 units SC ACHS [facility] PRN Reason: Protocol Last Admin: 09/08/17 08:04 Dose: 3 units Pantoprazole Sodium (Protonix Inj) 40 mg IVP DAILY [facility] Last Admin: 09/07/17 09:32 Dose: 40 mg - Labs Labs: 09/08/17 06:40 09/08/17 06:40 PT 17.1 SECONDS (9.4-12.5) H 09/05/17 21:45 INR 1.49 (0.93-1.08) H 09/05/17 21:45 APTT 49.3 Seconds (25.1-36.5) H 09/08/17 06:40 - Additional Findings Additional findings: - Constitutional Appears: Other (intubated and sedated ) - Head Exam Head Exam: ATRAUMATIC, NORMAL INSPECTION, NORMOCEPHALIC - Eye Exam Eye Exam: PERRL (sluggish ) - Respiratory Exam Respiratory Exam: Clear to Ausculation Bilateral Additional comments: mechanically ventilated - Cardiovascular Exam Cardiovascular Exam: RRR, +S1, +S2 - GI/Abdominal Exam GI & Abdominal Exam: Soft, Normal Bowel Sounds. absent: Distended - Extremities Exam Extremities Exam: Normal Inspection - Neurological Exam Additional comments: sedated - Skin Skin Exam: Dry, Intact, Normal Color, Warm Assessment and Plan - Assessment and Plan (Free Text) Assessment: 67yo male with PMH of CAD s/p 15 stents, COPD, GERD, NIDDM, rheumatoid arthritis who presented with substernal chest pain and was found to have elevated troponins with rhabdomyolysis, UTI, sepsis, possible pneumonia per CT scan. Patient was transferred to ICU on 09/07/17 for respiratory distress with metabolic acidosis. Plan: NSTEMI * troponin elevated * Cardiology (Dr. Arias) following, recs appreciated * Cardiac cath possibly today * Echo pending * ASA * heparin drip * lasix as BP tolerates * zetia * holding Beta blockers 2/2 hypotension * holding crestor 2/2 rhabdo and elevated LFTs Respiratory failure * pneumonia vs acute decompensated CHF vs. history of COPD * intubated and sedated on propofol drip * CT chest: New alveolar and interstitial infiltrates are seen in both lower lobes as well as the right upper lobe. This is superimposed upon chronic emphysematous changes * ABG showing metabolic acidosis * f/u strep pneumo, MRSA * flu negative * legionella negative * duonebs OLMAN and PRN * lasix prn * Vanc, azithromycin, meropenem EMMA * Dialysis catheter place for dialysis today * will monitor * bicarb drip for metabolic acidosis UTI * leukoctosis * UA showing elevated leuk esterase and nitrate * blood cultures showing GNR * urine culture showing GNR * abx Gram negative sepsis * leukoctosis * lactate elevated * blood cultures positive for gram neg lauren * Urine cultures positive for gram neg lauren * ID consulted, recs appreciated * abx Left inguinal hernia * CT abd/pel:There is a 5 cm diameter left inguinal hernia that contains a portion of the sigmoid colon. There is no obstruction * not causing problems at this time Hypotension * Improving with gentle fluids with care not to fluid overload * Maintain MAP above 60 * holding beta adali for now Rhabdo * gentle hydration Immunocompromised 2/ RA * Bactrim for PCP ppx discontinued due to renal impairment PPX * GI protonix * DVT heparin drip <Susan Poole - Last Filed: 09/08/17 15:56> Objective - Vital Signs/Intake and Output Vital Signs (last 24 hours): Temp Pulse Resp BP Pulse Ox 98 F 108 H 35 H 100/57 L 93 L 09/08/17 11:54 09/08/17 14:00 09/08/17 10:09 09/08/17 15:20 09/08/17 11:40 Intake and Output: 09/08/17 09/08/17 06:59 18:59 Intake Total 435 2155 Output Total 700 Balance 435 1455 - Medications Medications: Current Medications Albuterol/Ipratropium (Duoneb 3 Mg/0.5 Mg (3 Ml) Ud) 3 ml IH Q2H PRN PRN Reason: Shortness of Breath Last Admin: 09/07/17 04:25 Dose: 3 ml Albuterol/Ipratropium (Duoneb 3 Mg/0.5 Mg (3 Ml) Ud) 3 ml IH [id number] [facility] Last Admin: 09/08/17 13:18 Dose: 3 ml Aspirin (Aspirin Chewable) 81 mg PO DAILY [facility] Last Admin: 09/08/17 11:13 Dose: 81 mg Hydrocortisone Sodium Succinate (Solu-Cortef) 50 mg IVP Q8 [facility] Last Admin: 09/08/17 15:18 Dose: 50 mg Meropenem (Merrem Iv 1 Gm Premix) 50 mls @ 100 mls/hr IVPB Q8 [facility] PRN Reason: Protocol Stop: 02/08/18 14:01 Last Admin: 09/08/17 15:17 Dose: 100 mls/hr Heparin Sodium/Sodium Chloride (Heparin 12657 Units/250ml 1/2 Normal Saline) 25 ,000 units in 250 mls @ 11.485 mls/hr IV .[id number] [facility]MAN; 12 UNITS/KG/HR PRN Reason: Protocol Last Titration: 09/08/17 11:31 Dose: 14 units/kg/hr, 13.399 mls/hr Propofol (Diprivan) 1,000 mg in 100 mls @ 2.871 mls/hr IV .Q24H PRN; Protocol; 5 MCG/KG/MIN PRN Reason: TITRATE PER MD ORDER Last Admin: 09/08/17 15:21 Dose: 50 mcg/kg/min, 28.712 mls/hr Azithromycin (Zithromax 500mg In Ns) 500 mg in 250 mls @ 167 mls/hr IVPB DAILY [facility] PRN Reason: Protocol Last Admin: 09/08/17 09:46 Dose: 167 mls/hr Cisatracurium Besylate 200 mg/ (Sodium Chloride) 270 mls @ 7.91 mls/hr IV .Q24H PRN; Protocol; 1 MCG/KG/MIN PRN Reason: TITRATE PER MD ORDER Last Titration: 09/08/17 08:20 Dose: 1.4 mcg/kg/min, 11.07 mls/hr NOREPINEPHRINE BIT/0.9 % NACL (Levophed 4 Mg/ 250 Ml Ns Premixed) 4 mg in 250 mls @ 15 mls/hr IV .[id number] PRN; Protocol; 4 MCG/MIN PRN Reason: TITRATE PER MD ORDER Last Titration: 09/08/17 05:00 Dose: 0 mcg/min, 0 mls/hr Vasopressin 20 units/ Sodium (Chloride) 101 mls @ 9.09 mls/hr IV .Q11H7M [facility]MAN; 0.03 U/MIN PRN Reason: Protocol Last Admin: 09/08/17 08:10 Dose: 9.09 mls/hr EPOPROSTENOL 1.5 mg/ (Miscellaneous) 50 mls @ 7 mls/hr INH .Q7H9M [facility] PRN Reason: Protocol Dobutamine HCl/Dextrose (Dobutamine/Dextrose 5% 500mg/250ml) 500 mg in 250 mls @ 7.327 mls/hr IV .Q24H PRN; Protocol; 2.5 MCG/KG/MIN PRN Reason: TITRATE PER PROTOCOL Last Admin: 09/07/17 12:18 Dose: 2.5 mcg/kg/min, 7.327 mls/hr Insulin Human Regular 100 (units/ Sodium Chloride) 100 mls @ 1 mls/hr IV .Q24H PRN; Protocol PRN Reason: TITRATE PER MD ORDER Last Titration: 09/08/17 14:14 Dose: 3 ml/hr, 3 mls/hr Midodrine (Proamatine) 7.5 mg PO TID [facility] Last Admin: 09/08/17 13:48 Dose: 7.5 mg Pantoprazole Sodium (Protonix Inj) 40 mg IVP DAILY [facility] Last Admin: 09/08/17 09:46 Dose: 40 mg Ticagrelor (Brilinta) 90 mg PO BID [facility] - Labs Labs: 09/08/17 06:40 09/08/17 06:40 PT 17.1 SECONDS (9.4-12.5) H 09/05/17 21:45 INR 1.49 (0.93-1.08) H 09/05/17 21:45 APTT 39.5 Seconds (25.1-36.5) H 09/08/17 10:06 Attending/Attestation - Attestation I have personally seen and examined this patient.: Yes I have fully participated in the care of the patient.: Yes I have reviewed all pertinent clinical information, including history, physical exam and plan: Yes Notes (Text): 09/08/17 15:46 67 year old male with past medical history of CAD s/p stents, COPD, diabetes and RA who presented with complaint of chest pain and chills. He was found to have NSTEMI, rhabdomyolysis, pneumonia, E coli bacteremia/UTI and elevated LFTs. Continue with aspirin, brilinta and heparin drip. Echocardiogram was reviewed. Consider cardiac cath when stable as per cardiology. Statin is on hold due to elevated LFTs. BB is on hold due to hypotension. He is on dobutamine and levophed. He is on bicarb drip for metabolic acidosis. Case was discussed with nephrology ; will monitor with lasix trial vs dialysis. Continue with iv antibiotics as per ID. He is currently on azithromycin and meropenem. Susan Poole MD Hospitalist.
[2017-09-08 09:17] LABS: ARTERIAL BLOOD GAS HCO3 21.6 mmol/L (21-28); ARTERIAL BLOOD GAS O2 SAT 97.2 % (95-98); ARTERIAL BLOOD GAS PCO2 46 mm/Hg (35-45); ARTERIAL BLOOD GAS PH 7.28 (7.35-7.45)
[2017-09-08] MEDS: Azithromycin 500MG/NS 250ml 500 MG/250 ML BAG IVPB SCH (09:46)
[2017-09-08] MEDS ORDERED: EPOPROSTENOL 1.5 MG VIAL INH SCH (10:00)
[2017-09-08] MEDS ORDERED: EPOPROSTENOL 1.5 MG VIAL IV SCH (10:00)
[2017-09-08] MEDS ORDERED: Insulin Regular 100 UNITS in Sodium Chloride 0.9% 99 ML IV PRN (10:33)
--- NOTE | 2017-09-08 10:49 | CP.PCM.PN ---
Subjective - Date & Time of Evaluation Date of Evaluation: 09/08/17 Time of Evaluation: 10:30 - Subjective Subjective: Continues to be on the ventilator, sedated, no fevers. Objective - Vital Signs/Intake and Output Vital Signs (last 24 hours): Temp Pulse Resp BP Pulse Ox 98 F 93 H 35 H 116/58 L 93 L 09/08/17 04:00 09/08/17 06:00 09/08/17 07:22 09/08/17 08:10 09/08/17 07:22 Intake and Output: 09/08/17 09/08/17 06:59 18:59 Intake Total 435 1847 Output Total 700 Balance 435 1147 - Medications Medications: Current Medications Albuterol/Ipratropium (Duoneb 3 Mg/0.5 Mg (3 Ml) Ud) 3 ml IH Q2H PRN PRN Reason: Shortness of Breath Last Admin: 09/07/17 04:25 Dose: 3 ml Albuterol/Ipratropium (Duoneb 3 Mg/0.5 Mg (3 Ml) Ud) 3 ml IH [id number] [facility] Last Admin: 09/08/17 07:13 Dose: 3 ml Hydrocortisone Sodium Succinate (Solu-Cortef) 50 mg IVP Q8 [facility] Last Admin: 09/08/17 05:50 Dose: 50 mg Meropenem (Merrem Iv 1 Gm Premix) 50 mls @ 100 mls/hr IVPB Q8 [facility] PRN Reason: Protocol Stop: 09/15/17 14:01 Last Admin: 09/08/17 05:50 Dose: 100 mls/hr Heparin Sodium/Sodium Chloride (Heparin 41421 Units/250ml 1/2 Normal Saline) 25 ,000 units in 250 mls @ 11.485 mls/hr IV .[id number] [facility]; 12 UNITS/KG/HR PRN Reason: Protocol Last Admin: 09/07/17 18:12 Dose: 12 units/kg/hr, 11.485 mls/hr Propofol (Diprivan) 1,000 mg in 100 mls @ 2.871 mls/hr IV .Q24H PRN; Protocol; 5 MCG/KG/MIN PRN Reason: TITRATE PER MD ORDER Last Admin: 09/08/17 08:17 Dose: 50 mcg/kg/min, 28.712 mls/hr Azithromycin (Zithromax 500mg In Ns) 500 mg in 250 mls @ 167 mls/hr IVPB DAILY [facility] PRN Reason: Protocol Last Admin: 09/07/17 11:26 Dose: 167 mls/hr Cisatracurium Besylate 200 mg/ (Sodium Chloride) 270 mls @ 7.91 mls/hr IV .Q24H PRN; Protocol; 1 MCG/KG/MIN PRN Reason: TITRATE PER MD ORDER Last Titration: 09/08/17 08:20 Dose: 1.4 mcg/kg/min, 11.07 mls/hr NOREPINEPHRINE BIT/0.9 % NACL (Levophed 4 Mg/ 250 Ml Ns Premixed) 4 mg in 250 mls @ 15 mls/hr IV .[id number] PRN; Protocol; 4 MCG/MIN PRN Reason: TITRATE PER MD ORDER Last Titration: 09/08/17 05:00 Dose: 0 mcg/min, 0 mls/hr Vasopressin 20 units/ Sodium (Chloride) 101 mls @ 9.09 mls/hr IV .Q11H7M [facility]MAN; 0.03 U/MIN PRN Reason: Protocol Last Admin: 09/08/17 08:10 Dose: 9.09 mls/hr EPOPROSTENOL 1.5 mg/ (Miscellaneous) 50 mls @ 7 mls/hr INH .Q7H9M [facility] PRN Reason: Protocol Dobutamine HCl/Dextrose (Dobutamine/Dextrose 5% 500mg/250ml) 500 mg in 250 mls @ 7.327 mls/hr IV .Q24H PRN; Protocol; 2.5 MCG/KG/MIN PRN Reason: TITRATE PER PROTOCOL Last Admin: 09/07/17 12:18 Dose: 2.5 mcg/kg/min, 7.327 mls/hr Insulin Human Regular (Humulin R Med) 0 units SC ACHS [facility] PRN Reason: Protocol Last Admin: 09/08/17 08:04 Dose: 3 units Pantoprazole Sodium (Protonix Inj) 40 mg IVP DAILY [facility] Last Admin: 09/07/17 09:32 Dose: 40 mg - Labs Labs: 09/08/17 06:40 09/08/17 06:40 PT 17.1 SECONDS (9.4-12.5) H 09/05/17 21:45 INR 1.49 (0.93-1.08) H 09/05/17 21:45 APTT 49.3 Seconds (25.1-36.5) H 09/08/17 06:40 - Constitutional Appears: Other (intubated and sedated) - ENT Exam Additional comments: ET tube in place - Respiratory Exam Respiratory Exam: Decreased Breath Sounds - Cardiovascular Exam Cardiovascular Exam: +S1, +S2 - GI/Abdominal Exam GI & Abdominal Exam: Soft. absent: Tenderness - Extremities Exam Additional comments: left groin Shiley catheter in place, right groin TLC in place, right upper arm arterial line in place Assessment and Plan - Assessment and Plan (Free Text) Plan: Assessment Septic shock with VDRF and renal failure due to gram negative bacilli bacteremia , consider urine as the source, on top of possible myocardial infarction history of acute cholecystitis, S/P laparoscopic cholecystectomy HTN atrial fibrillation with history of cardioversion rheumatoid arthritis COPD dyslipidemia history of pancreatitis S/P left ACL repair CAD S/P PCI S/P left toe amputation Plan continue Merrem day 2 and has been given a dose of IV Vancomycin and amikacin pending final blood cx results, OR cx and pathology will continue to monitor clinically and trend fever curve
--- NOTE | 2017-09-08 12:56 | PN ---
DATE: 09/08/2017 SUBJECTIVE: The patient is seen at bedside. He is sedated with propofol 45 mcg/kg per minute. He is on neuromuscular blockade with Nimbex at 1.5 mcg/kg per minute. He is on dobutamine 2.5 mcg/kg/min, Heparin drip. He is on volume control ventilation with following setting, 420/35/18/70%, his plateau pressure 27-29. The patient is off of pressors. PHYSICAL EXAMINATION: VITAL SIGNS: Blood pressure 114/59 with mean arterial pressure of 77, end-tidal CO2 on the monitor at 26, oxygen saturation 94%, heart rate 91. Heparin drip and dobutamine 2.5 per minute. ENT: Head and neck atraumatic. LUNGS: Clear to auscultation bilaterally. HEART: Regular rate and rhythm. S1, S2 normal. ABDOMEN: Soft, nontender, nondistended. MUSCULOSKELETAL: Trace bilateral pedal and ankle edema. NEUROLOGICAL: The patient is not moving as he is sedated and NMB-ed. SKIN: Moist. PSYCHIATRIC: The patient is sedated and NMB-ed. DATA: Sodium 138, potassium 4.7, chloride 102, carbon dioxide 19, BUN 35, creatinine 1.6, glucose 301. WBC 12.8, down from 26.6; hemoglobin 11.3; platelet count 162,000. Chest x-ray showed bilateral infiltrates with the right more than the left. MEDICATIONS: DuoNeb p.r.n. and every 6 hours, Amikacin, Nimbex, dobutamine, Lasix once, heparin drip, hydrocortisone 50 mg IV q. 8, meropenem, Protonix, propofol drip, vancomycin, azithromycin. ASSESSMENT AND PLAN: This is 67-year-old gentleman who presented with hypoxemic respiratory failure secondary to severe cardiogenic pulmonary edema superimposed on underlying rheumatoid arthritis related interstitial lung disease. 1. Neuro: The patient is sedated with propofol and he is on Nimbex for neuromuscular blockade, BIS 51. His dynamic compliance substantially improved. If he is able to maintain and improve his gas exchange parameters, neuromuscular blockade will be weaned off later on with subsequent weaning down of his sedation. Then, we will be able to assess his mental status and proceed with daily sedation vacation. 2. Pulmonary: We will continue with protective lung ventilation strategy with strict 6 mL/kg of predicted body weight. We will utilize higher PEEP to FiO2 ratio. We will aggressively taper down FiO2. Stress index now is 0.97. We will maintain plateau pressure less than 30 cm of water. We will continue with conservative fluid and oxygen management. We will try to diurese him and if unsuccessful, dialysis will be utilized. The patient is off of pressors. The patient is on small dose of steroids as well. We will continue with head of bed elevated more than 35 degrees. Oral hygiene and VAP bundle. 3. Cardiovascular: The patient is in cardiogenic shock, which however substantially improved. He is on dobutamine 2.5 mcg/kg per minute. The patient has substantial troponin leak up to 115. Due to high level of cardiac enzymes, possibility of primary coronary event is likely; however, as the patient has positive blood culture for Gram-negative rods, it is likely that it is superimposed on septic cardiomyopathy as well. We will continue with preload reduction with Lasix, ionotropic support with dobutamine and pre and afterload reduction with positive pressure ventilation. The patient is on heparin drip for therapeutic anticoagulation. We will avoid beta-blockers at present time until cardiogenic shock resolves, however, we will touch base with cardiology service about dual antiplatelet therapy. Will hold on statins as LFTs are elevated 4. Gastrointestinal: The patient is n.p.o.; however, we will consider early trophic enteral nutrition to avoid GI bacterial translocation, provided that now patient is off of pressors and septic shock appear to be resolved. Besides, conservative fluid management may improve GI tract edema and make patient tolerate enteral nutrition better. We will continue with head of bed elevated at >35 degrees and GI prophylaxis. Transaminitis most likely is due to "shock liver"-->will follow, hold statins 5. Infectious Disease: The patient is on meropenem, azithromycin and vancomycin. Septic workup revealed gram-negative lauren bacteremia as well as gram-negative rods in the urine. We will trend procalcitonin level and we will repeat blood culture to ascertain resolution of bacteremia. CVL will be removed, midline will be placed. If renal function would improve as well, HD catheter will be removed next. leukocytosis is trending down. ID service is on board. 6. Renal: The patient made about 500 mL of urine overnight, which is improvement compared with night prior (150 mL of urine on that night). We will follow up creatinine and urine output with a goal to have more than 0.5 mL/kg per hour. If unable to produce urine with diuresis, dialysis will be considered. The patient essentially improved. We will monitor and correct electrolytes abnormalities. 7. Endocrine: We will continue with small-dose steroids. We will continue to maintain blood glucose within 140 to 180 range according to N[employer] trial. Addendum: Fi02 down to 60%-->if gas exchange holds-->will work PEEP down next. ph 7.28-->will tolerate permissive hypercapnia (pc02 46). 40 mg IV Lasix was given in am, almost 100 cc/hr urine output over 7 hrs. Nephro recommended additional 80 mg lasix. and hold HD for now. Will repeat CMP ccm time 40 min Kwasi Lee MD [email or web address]
--- NOTE | 2017-09-08 14:19 | CP.PCM.PN ---
Subjective - Date & Time of Evaluation Date of Evaluation: 09/08/17 Time of Evaluation: 14:16 - Subjective Subjective: Follow up Nephrology Consultation: Assessment: critical Acute Kidney Injury (N17.9) likely due to shock (sepsis + cardiogenic) combined respi and metabolic acidosis with lactic acidosis with acute hypoxic hypercapnic respi failure acute CHF with cardiogenic shock with acute FL UTI with sepsis and shock DM, HTN, CAD s/p stent, COPD with emphysema and active smoker Plan UOP @ 80 ml/hr now, off levo/vasopressin. maintaining O2 sat 98%. will suggest another dose of lasix 80 mg IVP will consider renal replacement therapy if no response to lasix challenge and if remains hemodynamically stable. No ACEI/ARB due to EMMA Monitor Input/Output, daily weights and renal function with basic metabolic panel consider alternative to bactrim as he has EMMA Dose meds/antibiotics for reduced GFR. Avoid fleets enema/magnesium based laxatives. Avoid nephrotoxins/NSAIDs/ iodinated contrast (unless needed emergently) Glycemic control Further work up/management as per primary team overall prognosis guarded. Thanks for allowing me to participate in care of your patient. Will follow patient with you. Please call if any Qs. d/w team and Hema Driscoll Office: [phone] Chief Complaint; unable reason for consult: EMMA HPI: Pt is a 67 M with hx of diabetes Mellitus ( years), hypertension (years), CAD s/p stent, COPD with emphysema, active smoker initially presented with complaints of nausea/vomitting but had UTI sepsis and shock complicated by Acute FL and cardiogenic shock, pneumonia and pulmonary edema, respi failure renal consult for EMMA No recent iodinated contrast exposure. had obvious episodes of low BP. ROS: unable Physical Examination: General Appearance: ill appearing, orally intubated. on dobutamine. O2 sat 95% on 70% FiO2 and PEEP 18 Vitals reviewed and noted as below Head; Atraumatic, normocephalic ENT: orally intubated EYES: Sclera is anicteric. Neck; supple no lymphadenopathy, no thyromegaly or bruit Lungs: Increased respiratory rate/effort. Breath sounds bilateral decreased at bases anteriorly. he is mechanically ventilated Heart: Increased rate. s1s2 normal. No rub or gallop. Extremities: no edema. No varicose veins Neurological: Patient is sedated Skin: Warm and dry. Normal turgor. No rash. Palpitation: Normal elasticity for age Abdomen: Abdomen is soft. Bowel sounds +. There is no abdominal tenderness, no guarding/rigidity no organomegaly Psych: unable MSK: no joint tenderness or swelling. Digits and nails normal, no deformity : kidney or bladder not palpable. has berumen Labs/imaging reviewed. Past medical history, past surgical history, family history, social history, allergy reviewed and noted as below Family hx: no hx of CKD. Rest non-contributory Objective - Vital Signs/Intake and Output Vital Signs (last 24 hours): Temp Pulse Resp BP Pulse Ox 98 F 108 H 35 H 98/56 L 93 L 09/08/17 11:54 09/08/17 14:00 09/08/17 10:09 09/08/17 11:08 09/08/17 11:40 Intake and Output: 09/08/17 09/08/17 06:59 18:59 Intake Total 435 2055 Output Total 700 Balance 435 1355 - Medications Medications: Current Medications Albuterol/Ipratropium (Duoneb 3 Mg/0.5 Mg (3 Ml) Ud) 3 ml IH Q2H PRN PRN Reason: Shortness of Breath Last Admin: 09/07/17 04:25 Dose: 3 ml Albuterol/Ipratropium (Duoneb 3 Mg/0.5 Mg (3 Ml) Ud) 3 ml IH [id number] [facility] [place] Last Admin: 09/08/17 13:18 Dose: 3 ml Aspirin (Aspirin Chewable) 81 mg PO DAILY [facility] [place] Last Admin: 09/08/17 11:13 Dose: 81 mg Furosemide (Lasix) 80 mg IVP ONCE ONE Stop: 09/09/17 13:45 Hydrocortisone Sodium Succinate (Solu-Cortef) 50 mg IVP Q8 [facility] [place] Last Admin: 09/08/17 05:50 Dose: 50 mg Meropenem (Merrem Iv 1 Gm Premix) 50 mls @ 100 mls/hr IVPB Q8 [facility] PRN Reason: Protocol Stop: 09/15/17 14:01 Last Admin: 09/08/17 05:50 Dose: 100 mls/hr Heparin Sodium/Sodium Chloride (Heparin 18636 Units/250ml 1/2 Normal Saline) 25 ,000 units in 250 mls @ 11.485 mls/hr IV .[id number] [facility]; 12 UNITS/KG/HR PRN Reason: Protocol Last Titration: 09/08/17 11:31 Dose: 14 units/kg/hr, 13.399 mls/hr Propofol (Diprivan) 1,000 mg in 100 mls @ 2.871 mls/hr IV .Q24H PRN; Protocol; 5 MCG/KG/MIN PRN Reason: TITRATE PER MD ORDER Last Admin: 09/08/17 10:56 Dose: 50 mcg/kg/min, 28.712 mls/hr Azithromycin (Zithromax 500mg In Ns) 500 mg in 250 mls @ 167 mls/hr IVPB DAILY [facility] PRN Reason: Protocol Last Admin: 09/08/17 09:46 Dose: 167 mls/hr Cisatracurium Besylate 200 mg/ (Sodium Chloride) 270 mls @ 7.91 mls/hr IV .Q24H PRN; Protocol; 1 MCG/KG/MIN PRN Reason: TITRATE PER MD ORDER Last Titration: 09/08/17 08:20 Dose: 1.4 mcg/kg/min, 11.07 mls/hr NOREPINEPHRINE BIT/0.9 % NACL (Levophed 4 Mg/ 250 Ml Ns Premixed) 4 mg in 250 mls @ 15 mls/hr IV .[id number] PRN; Protocol; 4 MCG/MIN PRN Reason: TITRATE PER MD ORDER Last Titration: 09/08/17 05:00 Dose: 0 mcg/min, 0 mls/hr Vasopressin 20 units/ Sodium (Chloride) 101 mls @ 9.09 mls/hr IV .[id number] [facility]MAN; 0.03 U/MIN PRN Reason: Protocol Last Admin: 09/08/17 08:10 Dose: 9.09 mls/hr EPOPROSTENOL 1.5 mg/ (Miscellaneous) 50 mls @ 7 mls/hr INH .Q7H9M [facility] PRN Reason: Protocol Dobutamine HCl/Dextrose (Dobutamine/Dextrose 5% 500mg/250ml) 500 mg in 250 mls @ 7.327 mls/hr IV .Q24H PRN; Protocol; 2.5 MCG/KG/MIN PRN Reason: TITRATE PER PROTOCOL Last Admin: 09/07/17 12:18 Dose: 2.5 mcg/kg/min, 7.327 mls/hr Insulin Human Regular 100 (units/ Sodium Chloride) 100 mls @ 1 mls/hr IV .Q24H PRN; Protocol PRN Reason: TITRATE PER MD ORDER Last Titration: 09/08/17 14:14 Dose: 3 ml/hr, 3 mls/hr Midodrine (Proamatine) 7.5 mg PO TID [facility] [place] Last Admin: 09/08/17 13:48 Dose: 7.5 mg Pantoprazole Sodium (Protonix Inj) 40 mg IVP DAILY [facility] Last Admin: 09/08/17 09:46 Dose: 40 mg Ticagrelor (Brilinta) 90 mg PO BID [facility] - Labs Labs: 09/08/17 06:40 09/08/17 06:40 PT 17.1 SECONDS (9.4-12.5) H 09/05/17 21:45 INR 1.49 (0.93-1.08) H 09/05/17 21:45 APTT 39.5 Seconds (25.1-36.5) H 09/08/17 10:06
--- NOTE | 2017-09-08 14:46 | PN ---
DATE: 09/08/2017 REASON FOR CONSULTATION: Followup cardiac evaluation, non-ST segment myocardial infarction, Gram-negative sepsis, septic shock as well as significant MS, respiratory failure, intubated, hypotension requiring multiple vasopressors. SUBJECTIVE: The patient appears a little better than yesterday, off Levophed, but still on vasopressin and Dobutrex and sedation and heparin. OBJECTIVE: GENERAL: Being sedated, not bucking the vent. VITAL SIGNS: Temperature afebrile, heart rate 92, blood pressure 116/50. HEENT: PERRLA. Extraocular muscles intact. NECK: Supple. No carotid bruits or thyromegaly. CHEST: Clear to auscultation. HEART: S1 and S2 regular. ABDOMEN: Soft. EXTREMITIES: Clubbing and cyanosis negative. LABORATORY DATA: WBC 12.8, hemoglobin , hematocrit 35.2, platelet count 162. Sodium 130, potassium 4.7, chloride 104, carbon dioxide 22, anion gap of 17, BUN 52, creatinine 2.4. CPK 14,000, troponin trending down to 5.7. Blood culture getting Gram negative rods in blood as well as urine. IMPRESSION: Gram negative sepsis, source could be the urinary tract infection because same organisms growing in the blood as well as urine. Right lower lobe pneumonia, respiratory failure, intubated, lactic acidosis, septic shock by non-ST segment myocardial infarction, element of cardiogenic shock as well. Coronary artery disease, status post percutaneous transluminal coronary angioplasty, immunocompromised history of rheumatoid arthritis. RECOMMENDATION: Broad-spectrum antibiotic, cover Gram-negative and Gram-positive. Continue heparin, troponin trend down, wean off Levophed as tolerated. Continue vasopressin, continue Dobutrex, continue heparin. Yesterday, the patient had an echocardiography done that showed ejection fraction 25%-30%, regional wall motion consistent with coronary artery disease. Moderate global hypokinesis of the left ventricle. Trace aortic regurgitation, [id number] mitral regurgitation, mild tricuspid regurgitation. Rhabdomyolysis. Possible the patient may need dialysis, CVVH to remove the fluid as the urine output is significantly decreased and BUN and creatinine is going up. Close monitor. Further recommendations per hospital course. We will start Brilinta through the NG tube, load with 180 mg and then followed by 90 mg daily. Once the patient stabilizes, extubated, consider cardiac catheterization with sepsis controlled and extubated. Not on beta-adali because of severe shock, blood pressure, on vasopressor, Levophed . Once the vasopressor , we will start beta-adali. Overall, the patient's condition is critical. 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 Gracia Arias MD
--- NOTE | 2017-09-08 15:57 | RAD ---
HISTORY: s/p picc COMPARISON: Earlier same day FINDINGS: LUNGS: Bilateral infiltrates unchanged. Endotracheal and nasogastric tube unchanged PLEURA: No significant pleural effusion identified, no pneumothorax apparent. CARDIOVASCULAR: Normal. OSSEOUS STRUCTURES: No significant abnormalities. VISUALIZED UPPER ABDOMEN: Normal. OTHER FINDINGS: None. IMPRESSION: Left-sided PICC line in satisfactory position near the junction of the SVC and right atrium
[2017-09-08 17:01] LABS: MAGNESIUM 1.9 mg/dL (1.7-2.2)
[2017-09-08 17:06] LABS: CALCIUM 7.6 mg/dL (8.4-10.5)
[2017-09-08] MEDS: Heparin25000 units/250ml 1/2NS 25,000 UNITS/250 ML BAG IV SCH (19:53)
[2017-09-08] MEDS: DOBUTamine 500mg/250ml D5W 500 MG/250 ML BAG IV PRN (19:54)
[2017-09-09] MEDS: Albuterol-Ipratrop 3 mg / 0.5 (3 ml) UD IH SCH ×4 (02:00→19:35)
[2017-09-09] MEDS: Propofol 10 mg/ml 1,000 MG/100 ML VIAL IV PRN ×2 (02:00→05:55)
[2017-09-09 04:49] LABS: BASO # 0.01 K/mm3 (0.0-2.0); BASO % 0.1 % (0.0-3.0); GRAN # 12.01 (1.4-6.5); GRAN % 87.6 % (50.0-68.0); HEMOGLOBIN 10.9 g/dL (14.0-18.0); LYMPH # 0.8 (1.2-3.4); LYMPH % 5.7 % (22.0-35.0); MEAN CELL VOLUME 91.7 fl (80.0-105.0); MEAN CORPUSCULAR HEMOGLOBIN 30.3 pg (25.0-35.0); MEAN PLATELET VOLUME 11.2 fl (7.0-11.0); MONO # 0.9 (0.1-0.6); MONO % 6.6 % (1.0-6.0); RBC 3.6 10^6/uL (3.5-6.1); WHITE BLOOD COUNT 13.7 10^3/ul (4.5-11.0)
[2017-09-09 05:23] LABS: ALBUMIN 3.1 g/dL (3.0-4.8); CALCIUM 8.2 mg/dL (8.4-10.5)
[2017-09-09 05:50] LABS: ARTERIAL BLOOD GAS HCO3 24.2 mmol/L (21-28); ARTERIAL BLOOD GAS PCO2 47 mm/Hg (35-45); ARTERIAL BLOOD GAS PH 7.32 (7.35-7.45); ARTERIAL BLOOD GAS TCO2 25.6 mmol.L (22-28)
[2017-09-09] MEDS: Meropenem IV 1 gm in NS 50 ML IVPB SCH (05:55)
[2017-09-09] MEDS: Fentanyl 1000mcg/100ml NS 1,000 MCG/100 ML BAG IV PRN (07:55)
--- NOTE | 2017-09-09 09:11 | CP.PCM.PN ---
<Michell Mcelroy - Last Filed: 09/09/17 12:44> Subjective - Date & Time of Evaluation Date of Evaluation: 09/09/17 Time of Evaluation: 09:07 - Subjective Subjective: Patient seen and examined at bedside. No acute events overnight per nursing. FiO2 reduced. ROS unattainable at this time. Objective - Vital Signs/Intake and Output Vital Signs (last 24 hours): Temp Pulse Resp BP Pulse Ox 98.9 F 102 H 35 H 105/62 95 09/09/17 00:00 09/08/17 19:54 09/08/17 10:09 09/09/17 08:13 09/08/17 18:20 Intake and Output: 09/09/17 09/09/17 06:59 18:59 Intake Total 1892 130 Output Total 700 Balance 1192 130 - Medications Medications: Current Medications Albuterol/Ipratropium (Duoneb 3 Mg/0.5 Mg (3 Ml) Ud) 3 ml IH Q2H PRN PRN Reason: Shortness of Breath Last Admin: 09/07/17 04:25 Dose: 3 ml Albuterol/Ipratropium (Duoneb 3 Mg/0.5 Mg (3 Ml) Ud) 3 ml IH [id number] [facility] Last Admin: 09/09/17 02:00 Dose: 3 ml Aspirin (Aspirin Chewable) 81 mg PO DAILY [facility] Last Admin: 09/08/17 11:13 Dose: 81 mg Hydrocortisone Sodium Succinate (Solu-Cortef) 50 mg IVP Q12H [facility] Meropenem (Merrem Iv 1 Gm Premix) 50 mls @ 100 mls/hr IVPB Q8 [facility] PRN Reason: Protocol Stop: 09/15/17 14:01 Last Admin: 09/09/17 05:55 Dose: 100 mls/hr Heparin Sodium/Sodium Chloride (Heparin 54841 Units/250ml 1/2 Normal Saline) 25 ,000 units in 250 mls @ 11.485 mls/hr IV .[id number] [facility]; 12 UNITS/KG/HR PRN Reason: Protocol Last Titration: 09/09/17 00:21 Dose: 16 units/kg/hr, 15.313 mls/hr Propofol (Diprivan) 1,000 mg in 100 mls @ 2.871 mls/hr IV .Q24H PRN; Protocol; 5 MCG/KG/MIN PRN Reason: TITRATE PER MD ORDER Last Titration: 09/09/17 07:38 Dose: 20 mcg/kg/min, 11.485 mls/hr Azithromycin (Zithromax 500mg In Ns) 500 mg in 250 mls @ 167 mls/hr IVPB DAILY [facility] PRN Reason: Protocol Last Admin: 09/08/17 09:46 Dose: 167 mls/hr Dobutamine HCl/Dextrose (Dobutamine/Dextrose 5% 500mg/250ml) 500 mg in 250 mls @ 7.327 mls/hr IV .Q24H PRN; Protocol; 2.5 MCG/KG/MIN PRN Reason: TITRATE PER PROTOCOL Last Titration: 09/09/17 08:30 Dose: 5 mcg/kg/min, 14.654 mls/hr Fentanyl Citrate (Fentanyl Citrate/Sodium Chloride 1 Mg/100 Ml) 1,000 mcg in 100 mls @ 5 mls/hr IV .Q20H PRN; Protocol; 50 MCG/HR PRN Reason: TITRATE PER MD ORDER Last Admin: 09/09/17 07:55 Dose: 50 mcg/hr, 5 mls/hr Dexmedetomidine HCl (Precedex 4 Mcg/Ml (100 Ml)) 400 mcg in 100 mls @ 5.107 mls /hr IV .[id number] PRN; Protocol; 0.2 MCG/KG/HR PRN Reason: Agitation Insulin Human Regular (Humulin R High) 0 units SC Q4H [facility] PRN Reason: Protocol Lorazepam (Ativan) 2 mg IVP Q4H PRN PRN Reason: Agitation Last Admin: 09/09/17 08:02 Dose: 2 mg Midodrine (Proamatine) 7.5 mg PO TID [facility] Last Admin: 09/08/17 17:32 Dose: 7.5 mg Pantoprazole Sodium (Protonix Inj) 40 mg IVP DAILY [facility] Last Admin: 09/08/17 09:46 Dose: 40 mg Ticagrelor (Brilinta) 90 mg PO BID [facility] Last Admin: 09/08/17 21:16 Dose: 90 mg - Labs Labs: 09/09/17 04:35 09/09/17 04:35 PT 17.1 SECONDS (9.4-12.5) H 09/05/17 21:45 INR 1.49 (0.93-1.08) H 09/05/17 21:45 APTT 67.6 Seconds (25.1-36.5) H 09/09/17 04:35 - Additional Findings Additional findings: - Constitutional Appears: Other (intubated and sedated ) - Head Exam Head Exam: ATRAUMATIC, NORMAL INSPECTION, NORMOCEPHALIC - Respiratory Exam Respiratory Exam: Clear to Ausculation Bilateral Additional comments: mechanically ventilated - Cardiovascular Exam Cardiovascular Exam: RRR, +S1, +S2 - GI/Abdominal Exam GI & Abdominal Exam: Soft, Normal Bowel Sounds. absent: Distended - Extremities Exam Extremities Exam: Normal Inspection - Neurological Exam Additional comments: sedated Assessment and Plan - Assessment and Plan (Free Text) Assessment: 67yo male with PMH of CAD s/p 15 stents, COPD, GERD, NIDDM, rheumatoid arthritis who presented with substernal chest pain and was found to have elevated troponins with rhabdomyolysis, UTI, sepsis, possible pneumonia per CT scan. Patient was transferred to ICU on 09/07/17 for respiratory distress with metabolic acidosis. Plan: NSTEMI * troponin elevated * Cardiology (Dr. Arias) following, recs appreciated * Unstable for Cardiac cath * Echo: dilated LV, EF 25-30%, hypokinesis of LV, trace AR, mild/mod MR, mild TR, dilated IVC * ASA * heparin drip * brilinta 90 mg PO BID * holding Beta blockers 2/2 hypotension * holding crestor 2/2 rhabdo and elevated LFTs Respiratory failure * pneumonia vs acute decompensated CHF vs. history of COPD * intubated and sedated on precedex * on pressors - dombutamine * fentanyl drip * CT chest: New alveolar and interstitial infiltrates are seen in both lower lobes as well as the right upper lobe. This is superimposed upon chronic emphysematous changes * ABG showing metabolic acidosis * f/u strep pneumo * negative for MRSA * flu negative * legionella negative * duonebs [facility]MAN and PRN * solumedrol 50 mg IV Q8 * lasix prn * azithromycin, meropenem EMMA * Dialysis catheter place however lasix improving urine output so dialysis not needed at this time * will monitor * bicarb drip discontinued as ABG improving UTI * leukoctosis * UA showing elevated leuk esterase and nitrate * blood cultures showing E. coli * urine culture showing E. coli * abx as above E. coli bacteremia * leukoctosis * lactate elevated * blood and urine cultures positive for E. coli * ID consulted, recs appreciated * abx as above Left inguinal hernia * CT abd/pel:There is a 5 cm diameter left inguinal hernia that contains a portion of the sigmoid colon. There is no obstruction * not causing problems at this time Hypotension * Improving * Maintain MAP above 60 * holding beta adali for now Rhabdo * CK elevated but improving * will continue to monitor Immunocompromised 2/2 RA * Bactrim for PCP ppx discontinued due to renal impairment PPX * GI protonix * DVT heparin drip <Susan Poole - Last Filed: 09/09/17 15:38> Objective - Vital Signs/Intake and Output Vital Signs (last 24 hours): Temp Pulse Resp BP Pulse Ox 99.7 F H 98 H 36 H 81/55 L 94 L 09/09/17 14:50 09/09/17 14:50 09/09/17 12:26 09/09/17 15:00 09/09/17 15:30 Intake and Output: 09/09/17 09/09/17 06:59 18:59 Intake Total 1892 343 Output Total 700 Balance 1192 343 - Medications Medications: Current Medications Albuterol/Ipratropium (Duoneb 3 Mg/0.5 Mg (3 Ml) Ud) 3 ml IH Q2H PRN PRN Reason: Shortness of Breath Last Admin: 09/07/17 04:25 Dose: 3 ml Albuterol/Ipratropium (Duoneb 3 Mg/0.5 Mg (3 Ml) Ud) 3 ml IH [id number] [facility] Last Admin: 09/09/17 13:24 Dose: 3 ml Aspirin (Aspirin Chewable) 81 mg PO DAILY [facility] Last Admin: 09/09/17 09:30 Dose: 81 mg Haloperidol Lactate (Haldol) 2 mg IVP Q2H PRN; Protocol PRN Reason: Agitation Hydrocortisone Sodium Succinate (Solu-Cortef) 50 mg IVP Q12H [facility] Last Admin: 09/09/17 09:19 Dose: Not Given Heparin Sodium/Sodium Chloride (Heparin 76159 Units/250ml 1/2 Normal Saline) 25 ,000 units in 250 mls @ 11.485 mls/hr IV .[id number] [facility]; 12 UNITS/KG/HR PRN Reason: Protocol Last Titration: 09/09/17 10:47 Dose: 0 units/kg/hr, 0 mls/hr Azithromycin (Zithromax 500mg In Ns) 500 mg in 250 mls @ 167 mls/hr IVPB DAILY [facility] PRN Reason: Protocol Last Admin: 09/09/17 09:31 Dose: 167 mls/hr Dobutamine HCl/Dextrose (Dobutamine/Dextrose 5% 500mg/250ml) 500 mg in 250 mls @ 7.327 mls/hr IV .Q24H PRN; Protocol; 2.5 MCG/KG/MIN PRN Reason: TITRATE PER PROTOCOL Last Titration: 09/09/17 08:30 Dose: 5 mcg/kg/min, 14.654 mls/hr Fentanyl Citrate (Fentanyl Citrate/Sodium Chloride 1 Mg/100 Ml) 1,000 mcg in 100 mls @ 5 mls/hr IV .Q20H PRN; Protocol; 50 MCG/HR PRN Reason: TITRATE PER MD ORDER Last Titration: 09/09/17 12:16 Dose: 0 mcg/hr, 0 mls/hr Dexmedetomidine HCl (Precedex 4 Mcg/Ml (100 Ml)) 400 mcg in 100 mls @ 5.107 mls /hr IV .[id number] PRN; Protocol; 0.2 MCG/KG/HR PRN Reason: Agitation Last Titration: 09/09/17 12:15 Dose: 0.8 mcg/kg/hr, 20.43 mls/hr Meropenem/Sodium Chloride (Meropenem 1g/Ns 100ml Ivpb) 1 gm in 100 mls @ 100 mls/hr IVPB Q12 [facility] PRN Reason: Protocol Stop: 09/15/17 14:01 Insulin Human Regular (Humulin R High) 0 units SC Q4H [facility] PRN Reason: Protocol Last Admin: 09/09/17 13:27 Dose: 2 units Lorazepam (Ativan) 2 mg IVP Q4H PRN PRN Reason: Agitation Last Admin: 09/09/17 13:04 Dose: 2 mg Midodrine (Proamatine) 10 mg PO TID [facility] Pantoprazole Sodium (Protonix Inj) 40 mg IVP DAILY [facility] Last Admin: 09/09/17 09:30 Dose: 40 mg Ticagrelor (Brilinta) 90 mg PO BID [facility] Last Admin: 09/09/17 09:30 Dose: 90 mg - Labs Labs: 09/09/17 04:35 09/09/17 04:35 PT 17.1 SECONDS (9.4-12.5) H 09/05/17 21:45 INR 1.49 (0.93-1.08) H 09/05/17 21:45 APTT 41.2 Seconds (25.1-36.5) H 09/09/17 10:30 Attending/Attestation - Attestation I have personally seen and examined this patient.: Yes I have fully participated in the care of the patient.: Yes I have reviewed all pertinent clinical information, including history, physical exam and plan: Yes Notes (Text): 09/09/17 15:35 67 year old male with past medical history of CAD s/p stents, COPD, diabetes and RA who presented with complaint of chest pain and chills. He was found to have NSTEMI, rhabdomyolysis, pneumonia, E coli bacteremia/UTI and elevated LFTs. Continue with aspirin, brilinta and heparin drip. Echocardiogram was reviewed. Consider cardiac cath when stable as per cardiology. Statin is on hold due to elevated LFTs. BB is on hold due to hypotension. Wean off pressors as tolerated. Continue with weaning trials and tapering of iv steroids as per mohs surgeon/general dermatologist. Metabolic acidosis has improved after bicarb drip. Case was discussed with nephrology today. Continue with lasix trials. Continue with iv antibiotics as per ID. He is currently on azithromycin and meropenem. Susan Poole MD Hospitalist.
[2017-09-09] MEDS: Dexmedetomidine 400mcg/100mL 400 MCG/100 ML BOTTLE IV PRN ×2 (09:15→20:34)
[2017-09-09] MEDS: Insulin Reg-HIGH-Coverage SC SCH ×5 (09:29→23:46)
[2017-09-09] MEDS: Azithromycin 500MG/NS 250ml 500 MG/250 ML BAG IVPB SCH (09:31)
--- NOTE | 2017-09-09 09:51 | CP.PCM.PN ---
Subjective - Date & Time of Evaluation Date of Evaluation: 09/09/17 Time of Evaluation: 09:47 - Subjective Subjective: Follow up Nephrology Consultation: Assessment: critical Acute Kidney Injury (N17.9) likely due to shock (sepsis + cardiogenic) combined respi and metabolic acidosis with lactic acidosis with acute hypoxic hypercapnic respi failure acute CHF with cardiogenic shock with acute [place] UTI with sepsis and shock DM, HTN, CAD s/p stent, COPD with emphysema and active smoker Plan Renal function seems to be plateauing today UOP > 2 L overnight w/ lasix - s/p a dose this am discussed w/ primary team to see if we can reduce the input - 5 L yesterday - double concentrate drips if possible reassess I/o this afternoon can give another dose of lasix lytes are otherwise stable will continue to monitor closely with you S: seen and examined remains critically ill on vent Physical Examination: General Appearance: ill appearing, orally intubated. on dobutamine. on 60 FiO2 Vitals reviewed and noted as below Head; Atraumatic, normocephalic ENT: orally intubated EYES: Sclera is anicteric. Neck; supple no lymphadenopathy, no thyromegaly or bruit Lungs: Increased respiratory rate/effort. mechanical bs and dec at bases Heart: Increased rate. s1s2 normal. No rub or gallop. Extremities: no edema. No varicose veins Neurological: Patient is sedated Skin: Warm and dry. Normal turgor. No rash. Palpitation: Normal elasticity for age Abdomen: Abdomen is soft. Bowel sounds +. There is no abdominal tenderness, no guarding/rigidity no organomegaly Psych: unable MSK: no joint tenderness or swelling. Digits and nails normal, no deformity : kidney or bladder not palpable. has berumen imaging reviewed Objective - Vital Signs/Intake and Output Vital Signs (last 24 hours): Temp Pulse Resp BP Pulse Ox 98.9 F 102 H 35 H 105/62 95 09/09/17 00:00 09/08/17 19:54 09/08/17 10:09 09/09/17 08:13 09/08/17 18:20 Intake and Output: 09/09/17 09/09/17 06:59 18:59 Intake Total 1892 135 Output Total 700 Balance 1192 135 - Medications Medications: Current Medications Albuterol/Ipratropium (Duoneb 3 Mg/0.5 Mg (3 Ml) Ud) 3 ml IH Q2H PRN PRN Reason: Shortness of Breath Last Admin: 09/07/17 04:25 Dose: 3 ml Albuterol/Ipratropium (Duoneb 3 Mg/0.5 Mg (3 Ml) Ud) 3 ml IH [id number] [facility] Last Admin: 09/09/17 02:00 Dose: 3 ml Aspirin (Aspirin Chewable) 81 mg PO DAILY [facility] Last Admin: 09/09/17 09:30 Dose: 81 mg Hydrocortisone Sodium Succinate (Solu-Cortef) 50 mg IVP Q12H [facility] Last Admin: 09/09/17 09:19 Dose: Not Given Meropenem (Merrem Iv 1 Gm Premix) 50 mls @ 100 mls/hr IVPB Q8 [facility] PRN Reason: Protocol Stop: 09/15/17 14:01 Last Admin: 09/09/17 05:55 Dose: 100 mls/hr Heparin Sodium/Sodium Chloride (Heparin 58870 Units/250ml 1/2 Normal Saline) 25 ,000 units in 250 mls @ 11.485 mls/hr IV .[id number] [facility]; 12 UNITS/KG/HR PRN Reason: Protocol Last Titration: 09/09/17 00:21 Dose: 16 units/kg/hr, 15.313 mls/hr Propofol (Diprivan) 1,000 mg in 100 mls @ 2.871 mls/hr IV .Q24H PRN; Protocol; 5 MCG/KG/MIN PRN Reason: TITRATE PER MD ORDER Last Titration: 09/09/17 07:38 Dose: 20 mcg/kg/min, 11.485 mls/hr Azithromycin (Zithromax 500mg In Ns) 500 mg in 250 mls @ 167 mls/hr IVPB DAILY [facility] PRN Reason: Protocol Last Admin: 09/09/17 09:31 Dose: 167 mls/hr Dobutamine HCl/Dextrose (Dobutamine/Dextrose 5% 500mg/250ml) 500 mg in 250 mls @ 7.327 mls/hr IV .Q24H PRN; Protocol; 2.5 MCG/KG/MIN PRN Reason: TITRATE PER PROTOCOL Last Titration: 09/09/17 08:30 Dose: 5 mcg/kg/min, 14.654 mls/hr Fentanyl Citrate (Fentanyl Citrate/Sodium Chloride 1 Mg/100 Ml) 1,000 mcg in 100 mls @ 5 mls/hr IV .Q20H PRN; Protocol; 50 MCG/HR PRN Reason: TITRATE PER MD ORDER Last Titration: 09/09/17 09:08 Dose: 70 mcg/hr, 7 mls/hr Dexmedetomidine HCl (Precedex 4 Mcg/Ml (100 Ml)) 400 mcg in 100 mls @ 5.107 mls /hr IV .[id number] PRN; Protocol; 0.2 MCG/KG/HR PRN Reason: Agitation Last Admin: 09/09/17 09:15 Dose: 0.2 mcg/kg/hr, 5.107 mls/hr Insulin Human Regular (Humulin R High) 0 units SC Q4H [facility] PRN Reason: Protocol Last Admin: 09/09/17 09:29 Dose: 4 units Lorazepam (Ativan) 2 mg IVP Q4H PRN PRN Reason: Agitation Last Admin: 09/09/17 08:02 Dose: 2 mg Midodrine (Proamatine) 7.5 mg PO TID [facility] Last Admin: 09/09/17 09:30 Dose: 7.5 mg Pantoprazole Sodium (Protonix Inj) 40 mg IVP DAILY [facility] Last Admin: 09/09/17 09:30 Dose: 40 mg Ticagrelor (Brilinta) 90 mg PO BID [facility] Last Admin: 09/09/17 09:30 Dose: 90 mg - Labs Labs: 09/09/17 04:35 09/09/17 04:35 PT 17.1 SECONDS (9.4-12.5) H 09/05/17 21:45 INR 1.49 (0.93-1.08) H 09/05/17 21:45 APTT 67.6 Seconds (25.1-36.5) H 09/09/17 04:35
[2017-09-09] MEDS ORDERED: Meropenem 1g/NS 100mL IVPB 1 GM/100 ML PIGGYBACK IVPB SCH (10:18)
--- NOTE | 2017-09-09 11:00 | CP.PCM.PN ---
Subjective - Date & Time of Evaluation Date of Evaluation: 09/09/17 Time of Evaluation: 10:20 - Subjective Subjective: Still intubated but now only on Dobutamine, Levophed and Vasopressin have been discontinued, no fevers overnight. Objective - Vital Signs/Intake and Output Vital Signs (last 24 hours): Temp Pulse Resp BP Pulse Ox 98.9 F 102 H 35 H 95/59 L 95 09/09/17 00:00 09/08/17 19:54 09/08/17 10:09 09/09/17 06:00 09/08/17 18:20 Intake and Output: 09/09/17 09/09/17 06:59 18:59 Intake Total 1892 Output Total 700 Balance 1192 - Medications Medications: Current Medications Albuterol/Ipratropium (Duoneb 3 Mg/0.5 Mg (3 Ml) Ud) 3 ml IH Q2H PRN PRN Reason: Shortness of Breath Last Admin: 09/07/17 04:25 Dose: 3 ml Albuterol/Ipratropium (Duoneb 3 Mg/0.5 Mg (3 Ml) Ud) 3 ml IH [id number] [facility] Last Admin: 09/09/17 02:00 Dose: 3 ml Aspirin (Aspirin Chewable) 81 mg PO DAILY [facility] Last Admin: 09/08/17 11:13 Dose: 81 mg Hydrocortisone Sodium Succinate (Solu-Cortef) 50 mg IVP Q8 OLMAN Last Admin: 09/09/17 05:55 Dose: 50 mg Meropenem (Merrem Iv 1 Gm Premix) 50 mls @ 100 mls/hr IVPB Q8 OLMAN PRN Reason: Protocol Stop: 09/15/17 14:01 Last Admin: 09/09/17 05:55 Dose: 100 mls/hr Heparin Sodium/Sodium Chloride (Heparin 53958 Units/250ml 1/2 Normal Saline) 25 ,000 units in 250 mls @ 11.485 mls/hr IV .[id number] OLMAN; 12 UNITS/KG/HR PRN Reason: Protocol Last Titration: 09/09/17 00:21 Dose: 16 units/kg/hr, 15.313 mls/hr Propofol (Diprivan) 1,000 mg in 100 mls @ 2.871 mls/hr IV .Q24H PRN; Protocol; 5 MCG/KG/MIN PRN Reason: TITRATE PER MD ORDER Last Admin: 09/09/17 05:55 Dose: 45 mcg/kg/min, 25.841 mls/hr Azithromycin (Zithromax 500mg In Ns) 500 mg in 250 mls @ 167 mls/hr IVPB DAILY [facility]MAN PRN Reason: Protocol Last Admin: 09/08/17 09:46 Dose: 167 mls/hr Cisatracurium Besylate 200 mg/ (Sodium Chloride) 270 mls @ 7.91 mls/hr IV .Q24H PRN; Protocol; 1 MCG/KG/MIN PRN Reason: TITRATE PER MD ORDER Last Titration: 09/09/17 03:49 Dose: 1 mcg/kg/min, 7.91 mls/hr NOREPINEPHRINE BIT/0.9 % NACL (Levophed 4 Mg/ 250 Ml Ns Premixed) 4 mg in 250 mls @ 15 mls/hr IV .[id number] PRN; Protocol; 4 MCG/MIN PRN Reason: TITRATE PER MD ORDER Last Titration: 09/08/17 05:00 Dose: 0 mcg/min, 0 mls/hr Vasopressin 20 units/ Sodium (Chloride) 101 mls @ 9.09 mls/hr IV .Q11H7M OLMAN; 0.03 U/MIN PRN Reason: Protocol Last Admin: 09/08/17 08:10 Dose: 9.09 mls/hr EPOPROSTENOL 1.5 mg/ (Miscellaneous) 50 mls @ 7 mls/hr INH .Q7H9M OLMAN PRN Reason: Protocol Dobutamine HCl/Dextrose (Dobutamine/Dextrose 5% 500mg/250ml) 500 mg in 250 mls @ 7.327 mls/hr IV .Q24H PRN; Protocol; 2.5 MCG/KG/MIN PRN Reason: TITRATE PER PROTOCOL Last Admin: 09/08/17 19:54 Dose: 2.5 mcg/kg/min, 7.327 mls/hr Insulin Human Regular 100 (units/ Sodium Chloride) 100 mls @ 1 mls/hr IV .Q24H PRN; Protocol PRN Reason: TITRATE PER MD ORDER Last Titration: 09/08/17 20:45 Dose: 2 ml/hr, 2 mls/hr Midodrine (Proamatine) 7.5 mg PO TID OLMAN Last Admin: 09/08/17 17:32 Dose: 7.5 mg Pantoprazole Sodium (Protonix Inj) 40 mg IVP DAILY [facility] Last Admin: 09/08/17 09:46 Dose: 40 mg Ticagrelor (Brilinta) 90 mg PO BID [facility] Last Admin: 09/08/17 21:16 Dose: 90 mg - Labs Labs: 09/09/17 04:35 09/09/17 04:35 PT 17.1 SECONDS (9.4-12.5) H 09/05/17 21:45 INR 1.49 (0.93-1.08) H 09/05/17 21:45 APTT 67.6 Seconds (25.1-36.5) H 09/09/17 04:35 - Constitutional Appears: Other (intubated, sedated) - Head Exam Head Exam: NORMAL INSPECTION - ENT Exam Additional comments: ET tube in place - Neck Exam Neck Exam: absent: Meningismus - Respiratory Exam Respiratory Exam: Decreased Breath Sounds - Cardiovascular Exam Cardiovascular Exam: +S1, +S2 - GI/Abdominal Exam GI & Abdominal Exam: Soft. absent: Tenderness - Extremities Exam Additional comments: left arm central venous catheter in place and intact, left groin Shiley catheter in place Assessment and Plan - Assessment and Plan (Free Text) Plan: Assessment severe sepsis S/P shock with VDRF and renal failure due to E. coli bacteremia, consider urine as the source, on top of possible myocardial infarction and possible pneumonia. slowly improving history of acute cholecystitis, S/P laparoscopic cholecystectomy HTN atrial fibrillation with history of cardioversion rheumatoid arthritis COPD dyslipidemia history of pancreatitis S/P left ACL repair CAD S/P PCI S/P left toe amputation Plan continue Merrem day 3 and Zithromax (for pneumonia); MRSA nares is negative; urine Legionella Ag is negative; rapid flu test is negative will continue to monitor clinically
--- NOTE | 2017-09-09 11:29 | RAD ---
HISTORY: intubated COMPARISON: 09/08/2017 FINDINGS: LUNGS: No change in bilateral infiltrates right greater than left. Findings are most consistent with pneumonia. The pulmonary edema is possible PLEURA: No significant pleural effusion identified, no pneumothorax apparent. CARDIOVASCULAR: Normal. OSSEOUS STRUCTURES: No significant abnormalities. VISUALIZED UPPER ABDOMEN: Normal. OTHER FINDINGS: Central lines unchanged IMPRESSION: No change in bilateral infiltrates right greater than left. Findings are most consistent with pneumonia. The pulmonary edema is possible
--- NOTE | 2017-09-09 13:25 | PN ---
DATE: 09/09/2017 SUBJECTIVE: Patient is seen and examined at bedside. He is comfortable. His sedation regimen was switched from propofol to fentanyl 50 mcg per hour and Ativan p.r.n. Precedex will be considered next when switched to PSV. Neuromuscular blockade was stopped. Patient completely woke up and was able to follow commands. At present time, patient is on pressure support 10/13 with FiO2 of 50%. Rapid shallow breathing index is 40 to 50. Respiratory rate 24, tidal volume varies between 600 and 700. Patient is very comfortable. Oxygen saturation is 95%. Heart rate 98, blood pressure 102/60, temperature 99.7. Patient is on enteral feeds 20 mL per hour and he tolerated it well without residual overnight. Patient is on heparin for therapeutic anticoagulation for NSTEMI and atrial fibrillation. Patient is on dobutamine 2.5 mcg/kg per minute. Patient just received a dose of Lasix. Overnight, his urine output was 700 mL; however, his overall fluid balance is positive and we will continue with diuresis. PHYSICAL EXAMINATION: ENT: Head and neck atraumatic. LUNGS: Decreased breath sounds bilaterally with a few crackles bibasilarly. HEART: Regular rate and rhythm. S1, S2 normal. ABDOMEN: Soft, nontender, nondistended. MUSCULOSKELETAL: Trace bilateral pedal and ankle edema. NEUROLOGIC: During sedation vacation, patient was able to move all extremities spontaneously and on commands. SKIN: Moist. PSYCHIATRIC: Patient was alert, awake and able to follow commands. LABORATORY DATA: WBC 13.7 (patient had central line removed and midline placed yesterday). Dialysis catheter presents in left femoral groin area. Appears to be clean without signs of infection. Hemoglobin 10.9, platelet count 116,000. Sodium 139, potassium 4.4, chloride 104, carbon dioxide 25, BUN 65, creatinine 2.8, glucose 198 (insulin drip was stopped, switched to high protocol Regular insulin sliding scale with Accu-Chek every 4 hours). AST 140, ALT 306. LFTs are trending down. Total bilirubin 0.5. Chest x-ray showed bibasilar infiltrate with right lower lobe consolidation, more prominent than in the left side, appears to be unchanged or may be slightly better. MEDICATIONS: DuoNebs p.r.n. and every 6 hours on standing basis, aspirin, dobutamine, Lasix x1, heparin drip, hydrocortisone (tapered down to 50 mg IV q. 12), Regular insulin sliding scale high protocol with Accu-Chek every 4 hours, Ativan p.r.n., meropenem, midodrine 7.5 mg. p.o. t.i.d., Brilinta, azithromycin. ASSESSMENT AND PLAN: This is a 67-year-old gentleman with history of rheumatoid arthritis and rheumatoid arthritis-related interstitial lung disease who presented with cardiogenic and septic shock with multiorgan system failure including acute kidney injury, respiratory failure, septic cardiomyopathy, shock liver, septic encephalopathy. Patient was intubated. At the present time, he showed some signs of improvement. 1. Neurologic: Neuromuscular blockade was stopped. The patient fully awoke during sedation vacation and was able to follow commands. However, of course, was somewhat lethargic. Sedation regimen was switched from Propofol to Fentanyl drip+Ativan PRN and then to Precedex once patient switched to PSV. As patient was moving all extremities and appeared to be able to follow commands, no need for CAT scan of the head at present time. 2. Pulmonary: Patient tolerates pressure support 10/13 well. FiO2 is substantially decreased from 60% to 50%, PEEP was weaned down to 13 prior to switching to pressure support with EPAP 13 and IPAP 10. We will continue with conservative fluid and oxygen management. We will repeat ABG later on today to follow up on acid base status, CO2 level. Patient's oxygen saturation is 95% on above setting. We will continue with head of bed elevated at >35 degrees, oral hygiene, VAP bundle. Patient is on meropenem and azithromycin to cover for potential pathogens. Patient received one dose of Lasix and we will monitor urine output with a goal of more than 0.5 mL/kg per hour. 3. Cardiovascular: Patient has cardiogenic and distributive shock. In terms of cardiogenic shock, patient is on dobutamine 2.5 mcg/kg per hour. Levophed and vasopressin was weaned off yesterday. Patient received Lasix for preload reduction. Ventilatory support would provide after and preload reduction as well. If hemodynamics allows, we might start hydralazine and isosorbide mononitrate for afterload reduction in the setting of severe left ventricular systolic dysfunction. Meanwhile Precedex provides after-load reduction I discussed case with Dr. Arias who will be considering angiography early next week. In terms of the distributive shock, patient was weaned off of pressors as his hemodynamics improved 4. Infectious Disease: Patient has E-coli bacteremia, which also grows in the urine. Patient is on meropenem. Blood cultures were repeated to ascertain resolution of bacteremia. Femoral central line was removed. Midline was placed. Procalcitonin two days ago was 49.80. We will be following procalcitonin as well. Discussed with Dr. Sanders (covering for Dr. Driscoll)-->will remove femoral HD catheter as well. 5. Gastrointestinal: Patient tolerates enteral nutrition well. No residual. He is on gastrointestinal prophylaxis. Head of bed elevated to >35 degrees. 6. Renal: The patient makes good urine. His creatinine plateaued at 2.8. I think, at the present time, we can hold on dialysis. Nephrology service followup appreciated. We will continue to maintain mean arterial pressure more than 65, maintain euglycemia for additional nephro-protective effect. We will try to maintain euvolemia. We will try to strike a balance between conservative fluid management to optimize respiratory status and maintaining intravascular euvolemia to avoid renal hyporperfusion. We will try to avoid nephrotoxic medication, but not at expense of treating underlying disease. Most likely acute kidney injury related to acute tubular necrosis in the setting of septic and cardiogenic shock. 7. Endocrine: We will start tapering down stress dose steroids down to 50 mg IV q. 12 for now. We will maintain blood glucose within 140 to 180 range according to NICE-[employer]GAR trial. His blood glucose was well controlled and we will switch from insulin drip to high protocol every 4 hours coverage. We will continue with deep venous thrombosis and gastrointestinal prophylaxis. Addendum: Patient is on PSV 10/10 and fi02 50%-->increased fi02 to 55% to maintain p02 above 60. Patient is on Precedex 0.6 mcg/kg/hr. Ativan PRN, Vt 500- 800, RR 25-27. Responded to Lasix well, but BP due to precedex is borderline--> will hold lasix at present time. ?Joao-Stockes respiration? at times--> increased dobutamine to 5 mcg/kg/min ccm time 40 min Kwasi Lee MD [facility]
[2017-09-09 14:13] LABS: ARTERIAL BLOOD GAS HCO3 22.6 mmol/L (21-28); ARTERIAL BLOOD GAS HEMOGLOBIN 9.7 g/dL (11.7-17.4); ARTERIAL BLOOD GAS O2 CAPACITY 13.3 mL/dl (16-24); ARTERIAL BLOOD GAS O2 CONTENT 12.6 ML/dl (15-23); ARTERIAL BLOOD GAS O2 SAT 94.6 % (95-98); ARTERIAL BLOOD GAS PCO2 29 mm/Hg (35-45); ARTERIAL BLOOD GAS TCO2 23.5 mmol.L (22-28)
--- NOTE | 2017-09-09 14:39 | PN ---
DATE: 09/09/2017 REASON FOR CONSULTATION: Followup cardiac evaluation, non-ST segment myocardial infarction, Gram-negative sepsis, septic shock, intubated, respiratory failure, hypotension requiring multiple vasopressors. SUBJECTIVE: The patient is responding to the verbal stimuli, still being intubated, off vasopressors. PHYSICAL EXAMINATION: GENERAL: Still being intubated, but responds to the verbal stimuli. VITAL SIGNS: Temperature afebrile, heart rate 105, blood pressure 105/60. HEENT: PERRLA. Extraocular muscles intact. NECK: Supple. No carotid bruit or thyromegaly. CHEST: Clear to auscultation. HEART: S1 and S2, regular. ABDOMEN: Soft. EXTREMITIES: Clubbing and cyanosis negative. LABORATORY DATA: WBC 13.3, hemoglobin 10.9, hematocrit 33.0, platelet count 160. Chemistry shows sodium 139, potassium 4.0, chloride 104, carbon dioxide 25, anion gap of 16, BUN 65, creatinine 2.8. IMPRESSION: Acute non-ST segment myocardial infarction, Gram-negative sepsis, hypotension, intubated, chronic atrial fibrillation, rheumatoid arthritis, acute kidney injury. RECOMMENDATIONS: Continue Dobutrex. Continue heparin for AFib as well as for non-ST segment myocardial infarction. Rhabdomyolysis, monitor electrolytes. Try to wean off the vent as tolerated. Continue NG feeding. Continue aspirin. Continue Brilinta . Monitor I's and O's. Overall, the patient's condition is critical. Long-term prognosis is guarded. Once the patient get extubated, consider cardiac catheterization if renal functions remain stable. We will follow with you. We will add on CPK, troponin tomorrow. Gracia Arias MD
[2017-09-09 20:20] LABS: ARTERIAL BLOOD GAS HCO3 24.3 mmol/L (21-28); ARTERIAL BLOOD GAS O2 SAT 95.3 % (95-98); ARTERIAL BLOOD GAS PCO2 35 mm/Hg (35-45); ARTERIAL BLOOD GAS PH 7.45 (7.35-7.45); ARTERIAL BLOOD GAS TCO2 25.4 mmol.L (22-28)
[2017-09-09 20:21] LABS: GRAN # 9.52 (1.4-6.5); GRAN % 83.5 % (50.0-68.0); HEMOGLOBIN 9.8 g/dL (14.0-18.0); LYMPH # 0.9 (1.2-3.4); LYMPH % 7.5 % (22.0-35.0); MEAN CELL VOLUME 90.8 fl (80.0-105.0); MEAN PLATELET VOLUME 10.8 fl (7.0-11.0); RBC 3.27 10^6/uL (3.5-6.1); WHITE BLOOD COUNT 11.4 10^3/ul (4.5-11.0)
[2017-09-09] MEDS: Heparin25000 units/250ml 1/2NS 25,000 UNITS/250 ML BAG IV SCH (20:32)
[2017-09-09] MEDS: Meropenem 1g/NS 100mL IVPB 1 GM/100 ML PIGGYBACK IVPB SCH (21:07)
[2017-09-09] MEDS: DOBUTamine 500mg/250ml D5W 500 MG/250 ML BAG IV PRN (21:08)
[2017-09-10] MEDS: Dexmedetomidine 400mcg/100mL 400 MCG/100 ML BOTTLE IV PRN ×4 (00:32→18:42)
[2017-09-10] MEDS: Fentanyl 1000mcg/100ml NS 1,000 MCG/100 ML BAG IV PRN ×2 (00:38→21:39)
[2017-09-10] MEDS: Albuterol-Ipratrop 3 mg / 0.5 (3 ml) UD IH SCH ×4 (02:20→20:35)
[2017-09-10 05:26] LABS: ARTERIAL BLOOD GAS O2 SAT 95.8 % (95-98); ARTERIAL BLOOD GAS PCO2 32 mm/Hg (35-45)
[2017-09-10] MEDS: Insulin Reg-HIGH-Coverage SC SCH ×5 (05:31→20:00)
[2017-09-10 05:48] LABS: HEMOGLOBIN 10.1 g/dL (14.0-18.0); MEAN CELL VOLUME 90.5 fl (80.0-105.0); MEAN CORPUSCULAR HEMOGLOBIN 29.9 pg (25.0-35.0); MEAN PLATELET VOLUME 11.8 fl (7.0-11.0); RBC 3.38 10^6/uL (3.5-6.1); RED CELL DISTRIBUTION WIDTH 15.2 % (11.5-14.5); WHITE BLOOD COUNT 10.9 10^3/ul (4.5-11.0)
[2017-09-10 05:55] LABS: ALB/GLOB RATIO 1.1 (1.1-1.8); ALBUMIN 3.1 g/dL (3.0-4.8); CALCIUM 8.8 mg/dL (8.4-10.5); MAGNESIUM 2.6 mg/dL (1.7-2.2)
[2017-09-10 06:02] LABS: TROPONIN I 45.9 ng/mL
[2017-09-10 06:09] LABS: CK-MB 2.3 ng/mL (0.0-3.6)
--- NOTE | 2017-09-10 07:24 | CP.PCM.PN ---
<Bernadette Gutierrez - Last Filed: 09/10/17 16:24> Subjective - Date & Time of Evaluation Date of Evaluation: 09/10/17 Time of Evaluation: 08:00 - Subjective Subjective: PGY2 Medicine note for Dr. Poole Patient seen and examined at bedside. Patient was placed back on PRVC yesterday which was continued overnight. Also restarted on precedex and fentanyl for sedation, and dobutamine and midodrine. Patient spiked temp overnight with Tmax 102F- pancultured and CXR was done. This morning patient was on vent (80, 14, 420, 22). ABG this AM showed respiratory alkalosis with pH 7.5. Left femoral shiley was removed yesterday as no need for HD as per nephro. ROS unobtainable. Objective - Vital Signs/Intake and Output Vital Signs (last 24 hours): Temp Pulse Resp BP Pulse Ox 100.8 F H 80 31 H 132/63 94 L 09/10/17 06:50 09/10/17 06:50 09/10/17 07:09 09/10/17 06:47 09/10/17 07:09 Intake and Output: 09/10/17 09/10/17 06:59 18:59 Intake Total 1671 Output Total 600 Balance 1071 - Medications Medications: Current Medications Albuterol/Ipratropium (Duoneb 3 Mg/0.5 Mg (3 Ml) Ud) 3 ml IH Q2H PRN PRN Reason: Shortness of Breath Last Admin: 09/07/17 04:25 Dose: 3 ml Albuterol/Ipratropium (Duoneb 3 Mg/0.5 Mg (3 Ml) Ud) 3 ml IH [id number] [facility] Last Admin: 09/10/17 07:00 Dose: 3 ml Aspirin (Aspirin Chewable) 81 mg PO DAILY [facility] Last Admin: 09/09/17 09:30 Dose: 81 mg Haloperidol Lactate (Haldol) 2 mg IVP Q2H PRN; Protocol PRN Reason: Agitation Hydrocortisone Sodium Succinate (Solu-Cortef) 50 mg IVP Q12H [facility] Last Admin: 09/09/17 20:45 Dose: 50 mg Heparin Sodium/Sodium Chloride (Heparin 83546 Units/250ml 1/2 Normal Saline) 25 ,000 units in 250 mls @ 11.485 mls/hr IV .[id number] [facility]; 12 UNITS/KG/HR PRN Reason: Protocol Last Admin: 09/09/17 20:32 Dose: 18 units/kg/hr, 17.227 mls/hr Azithromycin (Zithromax 500mg In Ns) 500 mg in 250 mls @ 167 mls/hr IVPB DAILY [facility] PRN Reason: Protocol Last Admin: 09/09/17 09:31 Dose: 167 mls/hr Dobutamine HCl/Dextrose (Dobutamine/Dextrose 5% 500mg/250ml) 500 mg in 250 mls @ 7.327 mls/hr IV .Q24H PRN; Protocol; 2.5 MCG/KG/MIN PRN Reason: TITRATE PER PROTOCOL Last Admin: 09/09/17 21:08 Dose: 5 mcg/kg/min, 14.654 mls/hr Fentanyl Citrate (Fentanyl Citrate/Sodium Chloride 1 Mg/100 Ml) 1,000 mcg in 100 mls @ 5 mls/hr IV .Q20H PRN; Protocol; 50 MCG/HR PRN Reason: TITRATE PER MD ORDER Last Admin: 09/10/17 00:38 Dose: 100 mcg/hr, 10 mls/hr Dexmedetomidine HCl (Precedex 4 Mcg/Ml (100 Ml)) 400 mcg in 100 mls @ 5.107 mls /hr IV .[id number] PRN; Protocol; 0.2 MCG/KG/HR PRN Reason: Agitation Last Admin: 09/10/17 03:47 Dose: 1.2 mcg/kg/hr, 30.645 mls/hr Meropenem/Sodium Chloride (Meropenem 1g/Ns 100ml Ivpb) 1 gm in 100 mls @ 100 mls/hr IVPB Q12 [facility] PRN Reason: Protocol Stop: 09/15/17 14:01 Last Admin: 09/09/17 21:07 Dose: 100 mls/hr Insulin Human Regular (Humulin R High) 0 units SC Q4H [facility] PRN Reason: Protocol Last Admin: 09/10/17 05:31 Dose: 4 units Lorazepam (Ativan) 2 mg IVP Q4H PRN PRN Reason: Agitation Last Admin: 09/09/17 18:28 Dose: 2 mg Midodrine (Proamatine) 10 mg PO TID [facility] Last Admin: 09/09/17 17:59 Dose: 10 mg Pantoprazole Sodium (Protonix Inj) 40 mg IVP DAILY [facility] Last Admin: 09/09/17 09:30 Dose: 40 mg Ticagrelor (Brilinta) 90 mg PO BID [facility] Last Admin: 09/09/17 17:58 Dose: 90 mg - Labs Labs: 09/10/17 05:00 09/10/17 05:00 PT 17.1 SECONDS (9.4-12.5) H 09/05/17 21:45 INR 1.49 (0.93-1.08) H 09/05/17 21:45 APTT 64.5 Seconds (25.1-36.5) H 09/10/17 05:00 - Constitutional Appears: Chronically Ill - Head Exam Head Exam: ATRAUMATIC, NORMAL INSPECTION, NORMOCEPHALIC - Eye Exam Eye Exam: Normal appearance. absent: Conjunctival injection, Scleral icterus - ENT Exam Additional comments: ET tube in place - Respiratory Exam Additional comments: intubated on vent - Cardiovascular Exam Cardiovascular Exam: REGULAR RHYTHM, RRR, +S1, +S2. absent: Murmur - GI/Abdominal Exam GI & Abdominal Exam: Soft, Normal Bowel Sounds. absent: Distended, Firm, Guarding, Tenderness - Extremities Exam Extremities Exam: Normal Inspection - Neurological Exam Additional comments: sedated - Skin Skin Exam: Dry, Intact Assessment and Plan - Assessment and Plan (Free Text) Assessment: This is 67 yr old male with PMH with CAD s/p 15 stents, COPD, rheumatoid arthritis found to be in hypoxic respiratory distress, ARDS, NSTEMI, community acquired pneumonia and septic shock secondary to urosepsis with positive blood cultures. Plan: NSTEMI * troponin elevated * Cardiology (Dr. Arias) following, recs appreciated * Unstable for Cardiac cath * Echo: dilated LV, EF 25-30%, hypokinesis of LV, trace AR, mild/mod MR, mild TR, dilated IVC * ASA * heparin drip * brilinta 90 mg PO BID * holding Beta blockers 2/2 hypotension * holding crestor 2/2 rhabdo and elevated LFTs Respiratory failure * pneumonia vs acute decompensated CHF vs. history of COPD * intubated and sedated on precedex, diprivan * on dombutamine and midodrine * fentanyl drip * CT chest: New alveolar and interstitial infiltrates are seen in both lower lobes as well as the right upper lobe. This is superimposed upon chronic emphysematous changes * ABG showing respiratory alkalosis * negative for MRSA * flu negative * legionella negative * duonebs OLMAN and PRN * solumedrol 50 mg IV Q12 * lasix prn * azithromycin, meropenem EMMA * Lasix prn * will monitor UTI * leukoctosis * UA showing elevated leuk esterase and nitrate * blood cultures showing E. coli * urine culture showing E. coli * abx as above * repeat cultured and repeat procalcitonin in light of spiking temps E. coli bacteremia * repeat culture and repeat procalcitonin in light of spiking temps * leukoctosis * lactate elevated * blood and urine cultures positive for E. coli * ID consulted, recs appreciated * abx as above Left inguinal hernia * CT abd/pel:There is a 5 cm diameter left inguinal hernia that contains a portion of the sigmoid colon. There is no obstruction * not causing problems at this time Hypotension * dobutamine gtt and midodrine * Maintain MAP above 65 * holding beta adali for now Immunocompromised 2/2 RA * Bactrim for PCP ppx discontinued due to renal impairment PPX * GI protonix * DVT heparin drip Discussed with Dr. Virgilio Gutierrez PGY2 <Susan Poole - Last Filed: 09/10/17 21:24> Objective - Vital Signs/Intake and Output Vital Signs (last 24 hours): Temp Pulse Resp BP Pulse Ox 101.8 F H 88 31 H 122/66 98 09/10/17 15:29 09/10/17 18:00 09/10/17 07:09 09/10/17 18:40 09/10/17 12:00 Intake and Output: 09/10/17 09/11/17 18:59 06:59 Intake Total 2712 Output Total 1000 Balance 1712 - Medications Medications: Current Medications Albuterol/Ipratropium (Duoneb 3 Mg/0.5 Mg (3 Ml) Ud) 3 ml IH Q2H PRN PRN Reason: Shortness of Breath Last Admin: 09/07/17 04:25 Dose: 3 ml Albuterol/Ipratropium (Duoneb 3 Mg/0.5 Mg (3 Ml) Ud) 3 ml IH [id number] [facility] Last Admin: 09/10/17 20:35 Dose: 3 ml Aspirin (Aspirin Chewable) 81 mg PO DAILY [facility] Last Admin: 09/10/17 09:19 Dose: 81 mg Haloperidol Lactate (Haldol) 2 mg IVP Q2H PRN; Protocol PRN Reason: Agitation Hydrocortisone Sodium Succinate (Solu-Cortef) 50 mg IVP Q12H [facility] Last Admin: 09/10/17 08:58 Dose: 50 mg Heparin Sodium/Sodium Chloride (Heparin 62727 Units/250ml 1/2 Normal Saline) 25 ,000 units in 250 mls @ 11.485 mls/hr IV .[id number] [facility]; 12 UNITS/KG/HR PRN Reason: Protocol Last Admin: 09/10/17 10:00 Dose: 18 units/kg/hr, 17.227 mls/hr Dobutamine HCl/Dextrose (Dobutamine/Dextrose 5% 500mg/250ml) 500 mg in 250 mls @ 7.327 mls/hr IV .Q24H PRN; Protocol; 2.5 MCG/KG/MIN PRN Reason: TITRATE PER PROTOCOL Last Admin: 09/10/17 16:09 Dose: 5 mcg/kg/min, 14.654 mls/hr Fentanyl Citrate (Fentanyl Citrate/Sodium Chloride 1 Mg/100 Ml) 1,000 mcg in 100 mls @ 5 mls/hr IV .Q20H PRN; Protocol; 50 MCG/HR PRN Reason: TITRATE PER MD ORDER Last Admin: 09/10/17 00:38 Dose: 100 mcg/hr, 10 mls/hr Dexmedetomidine HCl (Precedex 4 Mcg/Ml (100 Ml)) 400 mcg in 100 mls @ 5.107 mls /hr IV .[id number] PRN; Protocol; 0.2 MCG/KG/HR PRN Reason: Agitation Last Admin: 09/10/17 18:42 Dose: 1.2 mcg/kg/hr, 30.645 mls/hr Meropenem/Sodium Chloride (Meropenem 1g/Ns 100ml Ivpb) 1 gm in 100 mls @ 100 mls/hr IVPB Q12 [facility] PRN Reason: Protocol Stop: 09/15/17 14:01 Last Admin: 09/10/17 09:20 Dose: 100 mls/hr Propofol (Diprivan) 1,000 mg in 100 mls @ 3.13 mls/hr IV .Q24H PRN; Protocol; 5 MCG/KG/MIN PRN Reason: TITRATE PER MD ORDER Last Admin: 09/10/17 18:44 Dose: 31.95 mcg/kg/min, 20 mls/hr Doxycycline Hyclate 100 mg/ (Sodium Chloride) 100 mls @ 100 mls/hr IVPB Q12 [facility] PRN Reason: Protocol Stop: 09/19/17 22:01 Ibuprofen (Motrin Oral Susp) 600 mg PO Q6H PRN PRN Reason: Fever >100.4 F Last Admin: 09/10/17 18:13 Dose: 600 mg Insulin Human Regular (Humulin R High) 0 units SC Q4H [facility] PRN Reason: Protocol Last Admin: 09/10/17 16:30 Dose: 2 units Lorazepam (Ativan) 2 mg IVP Q4H PRN PRN Reason: Agitation Last Admin: 09/09/17 18:28 Dose: 2 mg Midodrine (Proamatine) 10 mg PO TID [facility] Last Admin: 09/10/17 18:01 Dose: 10 mg Pantoprazole Sodium (Protonix Inj) 40 mg IVP DAILY [facility] Last Admin: 09/10/17 09:18 Dose: 40 mg Ticagrelor (Brilinta) 90 mg PO BID [facility] Last Admin: 09/10/17 18:01 Dose: 90 mg - Labs Labs: 09/10/17 05:00 09/10/17 05:00 PT 17.1 SECONDS (9.4-12.5) H 09/05/17 21:45 INR 1.49 (0.93-1.08) H 09/05/17 21:45 APTT 64.5 Seconds (25.1-36.5) H 09/10/17 05:00 Attending/Attestation - Attestation I have personally seen and examined this patient.: Yes I have fully participated in the care of the patient.: Yes I have reviewed all pertinent clinical information, including history, physical exam and plan: Yes Notes (Text): 09/10/17 21:22 67 year old male with past medical history of CAD s/p stents, COPD, diabetes and RA who presented with complaint of chest pain and chills. He was found to have NSTEMI, rhabdomyolysis, pneumonia, E coli bacteremia/UTI and elevated LFTs. Continue with aspirin, brilinta and heparin drip. Echocardiogram was reviewed. Consider cardiac cath when stable as per cardiology. Statin is on hold due to elevated LFTs. BB is on hold due to hypotension. Wean off pressors as tolerated. Continue with weaning trials and tapering of iv steroids as per yeast pumper. Metabolic acidosis has improved after bicarb drip. Renal function also slightly improved. Nephrology is following. Continue with iv antibiotics as per ID. He is currently on azithromycin and meropenem. Although he continues to have fever, his procalcitonin and leukocytosis are improving. Susan Poole MD Hospitalist.
--- NOTE | 2017-09-10 08:45 | RAD ---
HISTORY: evaluate for new infiltrate COMPARISON: 09/09/2017 earlier study FINDINGS: LUNGS: There is some improvement in the bilateral alveolar infiltrates. PLEURA: No significant pleural effusion identified, no pneumothorax apparent. CARDIOVASCULAR: Normal. OSSEOUS STRUCTURES: No significant abnormalities. VISUALIZED UPPER ABDOMEN: Normal. OTHER FINDINGS: Central lines and tubes are unchanged IMPRESSION: Some improvement in bilateral alveolar infiltrates
--- NOTE | 2017-09-10 09:07 | RAD ---
HISTORY: intubated COMPARISON: 09/09/2017 FINDINGS: LUNGS: No change in bilateral alveolar infiltrates. Central lines and tubes unchanged PLEURA: No significant pleural effusion identified, no pneumothorax apparent. CARDIOVASCULAR: Normal. OSSEOUS STRUCTURES: No significant abnormalities. VISUALIZED UPPER ABDOMEN: Normal. OTHER FINDINGS: None. IMPRESSION: No change in bilateral alveolar infiltrates. Central lines and tubes unchanged
[2017-09-10] MEDS: Azithromycin 500MG/NS 250ml 500 MG/250 ML BAG IVPB SCH (09:19)
[2017-09-10] MEDS: Meropenem 1g/NS 100mL IVPB 1 GM/100 ML PIGGYBACK IVPB SCH ×2 (09:20→21:47)
--- NOTE | 2017-09-10 09:41 | PN ---
DATE: 09/10/2017 HEARING AID CONSULTANT NOTE SUBJECTIVE: Patient is sedated on the ventilator with an FiO2 of 60%. The patient is getting IV heparin as well as dobutamine and fentanyl. Hemodynamically at this time, he is stable. He does have an NG tube in place. Patient is being followed by ID. It was noted that he had a temperature last night, but white count is decreasing and initial diagnosis is E. coli in the urine and blood. PHYSICAL EXAMINATION: VITAL SIGNS: His temperature is 100.8, his pulse is 80, BP is 145/68, respiratory rate is 18. HEENT: Head is atraumatic, normocephalic. Eyes reactive to light. Ear, nose and throat seemed to be within normal limits. NECK: Supple. No JVD. No thyroid enlargement, no lymph nodes. HEART: Has regular rate and rhythm. Normal S1, S2. LUNGS: Reveal mild rhonchi at the bases. ABDOMEN: Soft. Decreased bowel sounds. GENITALIA AND RECTAL: Deferred. MUSCULOSKELETAL: No joint deformities. EXTREMITIES: Reveal 1 to 2+ lower extremity edema. NEUROLOGIC: The patient is sedated on the ventilator. LABORATORY DATA: As far as his laboratories, the patient's white count is 10.9, hemoglobin is 10.1, his hematocrit is 30.6 with platelets of 165,000. Arterial blood gas reveals a pH of 7.50, pCO2 of 32, pO2 of 65. Patient's sodium is 145, potassium 3.9, chloride 108, CO2 of 26 with a BUN of 83, creatinine of 2.4 and glucose of 214. Patient's troponin is 45.9. As far as his chest x-ray, it is pending, but yesterday's x-ray shows bilateral lower lobe infiltrative processes. IMPRESSION: As far as impression, this patient has sepsis that is positive for Escherichia coli in the blood and in the urine. He has bilateral pneumonia with acute respiratory distress syndrome and acute myocardial infarction. Patient has respiratory failure, on the ventilator with an FiO2 of 60%. He has anemia as well as renal insufficiency. PLAN: As far as our plan, we will continue with ventilator support and decrease the FiO2 as tolerated. Patient will be put on Diprivan for sedation. Continue with the dobutamine and heparin IV. He is being followed by Infectious Disease and is on DuoNeb for appropriate bronchodilatation and he is on meropenem for antibiotics as well as Zithromax. Patient is getting Solu-Cortef and Protonix and we will continue to follow closely and treat aggressively along with the other consultants and the primary care doctor. Devan Wilkinson MD
[2017-09-10] MEDS: Heparin25000 units/250ml 1/2NS 25,000 UNITS/250 ML BAG IV SCH (10:00)
[2017-09-10 11:33] LABS: ARTERIAL BLOOD GAS HCO3 24.2 mmol/L (21-28); ARTERIAL BLOOD GAS O2 SAT 94.7 % (95-98); ARTERIAL BLOOD GAS PCO2 31 mm/Hg (35-45); ARTERIAL BLOOD GAS TCO2 25.2 mmol.L (22-28)
--- NOTE | 2017-09-10 12:42 | PN ---
DATE: REASON FOR CONSULTATION AND FOLLOWUP: Cardiac evaluation; non-ST segment myocardial infarction; Gram-negative sepsis; septic shock; intubated; respiratory failure; febrile; hypotension requiring multiple vasopressors. SUBJECTIVE: Patient remains on vent, running fever of 100.3, on sedation and muscles relaxant, 5 mcg of Dobutrex. PHYSICAL EXAMINATION: As follows; GENERAL: Not responding to verbal stimuli on sedation. VITAL SIGNS: Temperature now 100.1, earlier was ; heart rate 90; blood pressure 100/70. HEENT: PERRLA, intact. NECK: Supple. No carotid bruit. No thyromegaly. CHEST: Clear to auscultation. HEART: S1, S2, regular. ABDOMEN: Soft. EXTREMITIES: Clubbing and cyanosis negative. LABORATORY DATA: Blood workup as follows: WBC 10.9, hemoglobin 10.1, hematocrit 30.6, platelet count 165,000. Chemistry shows sodium 145, potassium 3.9, chloride 108, carbon dioxide 26, anion gap of 15, BUN 83, creatinine 2.4. Troponin trending down to 45.9. IMPRESSION: Sepsis, septic shock; Gram negative sepsis, bacteremia; Escherichia coli in the blood, Escherichia coli in the urine, possible source is urinary tract infection; right lower lobe pneumonia; respiratory failure; septic shock; non-ST segment myocardial infarction; significant decrease in left ventricular function, ejection fraction 25-30%; renal insufficiency; acute kidney injury on chronic renal insufficiency; rhabdomyolysis, CPK came down to 381; history of rheumatoid arthritis; history of atrial fibrillation, on Eliquis at home. RECOMMENDATIONS: Continue heparin for atrial fibrillation as well as for non-ST segment myocardial infarction. Continue aspirin. Continue Brilinta. Continue Dobutrex. Vent management. Broad-spectrum antibiotic. Once the patient is extubated, I will consider cardiac catheterization coronary anatomy. We will follow with you. Overall, patient's condition is critical. Long-term prognosis is guarded. Monitor I's and O's and try to keep negative fluid balance. Gracia Arias MD
[2017-09-10] MEDS: Propofol 10 mg/ml 1,000 MG/100 ML VIAL IV PRN ×3 (13:34→23:50)
[2017-09-10] MEDS ORDERED: Vancomycin 1gm in NS 250ml 1 GM/250 ML BAG IVPB STA (13:56)
[2017-09-10] MEDS: DOBUTamine 500mg/250ml D5W 500 MG/250 ML BAG IV PRN (16:09)
--- NOTE | 2017-09-10 19:27 | PN ---
DATE: 09/10/2017 LOCATION: The patient is in the ICU 128, bed 5. SUBJECTIVE: The patient remains intubated, on a ventilator, in poor condition. He was seen early this morning. PHYSICAL EXAMINATION: VITAL SIGNS: He had a temperature of 102, pulse of 84, blood pressure is 140/70, respiratory rate on the ventilator. HEENT: Reveals ET tube is in place. NECK: Supple. LUNGS: Decreased breath sounds. HEART: Normal S1 and S2. ABDOMEN: Soft, nontender. No rebound. LABORATORY DATA: Reveals a white count of 10,900, hemoglobin of 10, platelets of 165. Coagulation is noted. BUN of 83, creatinine of 2.3. LFTs are elevated. Alkaline phosphatase is 52. Troponin is noted to be 45. Microbiology reveals repeat blood cultures are negative from yesterday. The patient's chest x-ray from the 09/08/2017 is reviewed and patient's chest x-ray from today is reviewed. No change in bilateral alveolar infiltrates. ASSESSMENT AND PLAN: A 67-year-old male who was admitted with severe sepsis, septic shock with Escherichia coli bacteremia secondary to Escherichia coli in the urine and persistent fevers and acute kidney injury on top of chronic kidney injury, complicated with non-ST elevation myocardial infarction and healthcare associated pneumonia. We will continue the meropenem, give a dose of vancomycin. We will start the patient on doxycycline. We will check for a serum culture. Overall, prognosis is poor. Azael Lara MD
[2017-09-10] MEDS ORDERED: Dextrose 50% SYRINGE Inj (50 ml) IVP ONE (23:56)
[2017-09-11] MEDS: Albuterol-Ipratrop 3 mg / 0.5 (3 ml) UD IH SCH ×4 (02:36→20:15)
[2017-09-11] MEDS: Dexmedetomidine 400mcg/100mL 400 MCG/100 ML BOTTLE IV PRN ×3 (03:14→21:44)
[2017-09-11] MEDS: Insulin Reg-HIGH-Coverage SC SCH ×6 (04:00→20:00)
[2017-09-11] MEDS: Propofol 10 mg/ml 1,000 MG/100 ML VIAL IV PRN ×4 (05:40→23:20)
[2017-09-11 06:34] LABS: HEMOGLOBIN 9.7 g/dL (14.0-18.0); MEAN CELL VOLUME 92.9 fl (80.0-105.0); MEAN CORPUSCULAR HEMOGLOBIN 29.9 pg (25.0-35.0); MEAN CORPUSCULAR HGB CONC 32.2 g/dl (31.0-37.0); RBC 3.24 10^6/uL (3.5-6.1); RED CELL DISTRIBUTION WIDTH 15.6 % (11.5-14.5); WHITE BLOOD COUNT 11.8 10^3/ul (4.5-11.0)
[2017-09-11 06:38] LABS: ARTERIAL BLOOD GAS HCO3 24.8 mmol/L (21-28); ARTERIAL BLOOD GAS O2 SAT 82.1 % (95-98); ARTERIAL BLOOD GAS PCO2 41 mm/Hg (35-45); ARTERIAL BLOOD GAS PH 7.39 (7.35-7.45); ARTERIAL BLOOD GAS TCO2 26.1 mmol.L (22-28)
[2017-09-11 06:50] LABS: ALB/GLOB RATIO 1.1 (1.1-1.8); ALBUMIN 3.2 g/dL (3.0-4.8); CALCIUM 8.6 mg/dL (8.4-10.5)
[2017-09-11] MEDS: Fentanyl 1000mcg/100ml NS 1,000 MCG/100 ML BAG IV PRN ×2 (06:59→15:58)
--- NOTE | 2017-09-11 07:41 | CP.PCM.PN ---
<Bernadette Gutierrez - Last Filed: 09/11/17 15:05> Subjective - Date & Time of Evaluation Date of Evaluation: 09/11/17 Time of Evaluation: 13:00 - Subjective Subjective: PGY2 Medicine note for Dr. Poole Patient seen and examined at bedside. Patient was febrile overnight and had cooling blanket on. Intubated sedated on vent (22, 420, 16, 100). Patient was started on levophed this afternoon as Bp was low. Tolerating feeds. ROS unobtainable. Objective - Vital Signs/Intake and Output Vital Signs (last 24 hours): Temp Pulse Resp BP Pulse Ox 101.5 F H 100 H 30 H 130/71 91 L 09/11/17 05:30 09/11/17 05:57 09/11/17 07:18 09/11/17 04:46 09/11/17 07:18 Intake and Output: 09/11/17 09/11/17 06:59 18:59 Intake Total 400 Balance 400 - Medications Medications: Current Medications Albuterol/Ipratropium (Duoneb 3 Mg/0.5 Mg (3 Ml) Ud) 3 ml IH Q2H PRN PRN Reason: Shortness of Breath Last Admin: 09/07/17 04:25 Dose: 3 ml Albuterol/Ipratropium (Duoneb 3 Mg/0.5 Mg (3 Ml) Ud) 3 ml IH [id number] [facility] Last Admin: 09/11/17 07:10 Dose: 3 ml Aspirin (Aspirin Chewable) 81 mg PO DAILY [facility] Last Admin: 09/10/17 09:19 Dose: 81 mg Haloperidol Lactate (Haldol) 2 mg IVP Q2H PRN; Protocol PRN Reason: Agitation Hydrocortisone Sodium Succinate (Solu-Cortef) 50 mg IVP Q12H [facility] Last Admin: 09/10/17 20:00 Dose: 50 mg Heparin Sodium/Sodium Chloride (Heparin 66983 Units/250ml 1/2 Normal Saline) 25 ,000 units in 250 mls @ 11.485 mls/hr IV .[id number] OLMAN; 12 UNITS/KG/HR PRN Reason: Protocol Last Titration: 09/11/17 00:33 Dose: 19.22 units/kg/hr, 18.4 mls/hr Dobutamine HCl/Dextrose (Dobutamine/Dextrose 5% 500mg/250ml) 500 mg in 250 mls @ 7.327 mls/hr IV .Q24H PRN; Protocol; 2.5 MCG/KG/MIN PRN Reason: TITRATE PER PROTOCOL Last Admin: 09/10/17 16:09 Dose: 5 mcg/kg/min, 14.654 mls/hr Fentanyl Citrate (Fentanyl Citrate/Sodium Chloride 1 Mg/100 Ml) 1,000 mcg in 100 mls @ 5 mls/hr IV .Q20H PRN; Protocol; 50 MCG/HR PRN Reason: TITRATE PER MD ORDER Last Admin: 09/11/17 06:59 Dose: 100 mcg/hr, 10 mls/hr Dexmedetomidine HCl (Precedex 4 Mcg/Ml (100 Ml)) 400 mcg in 100 mls @ 5.107 mls /hr IV .[id number] PRN; Protocol; 0.2 MCG/KG/HR PRN Reason: Agitation Last Admin: 09/11/17 03:14 Dose: 0.5 mcg/kg/hr, 12.769 mls/hr Meropenem/Sodium Chloride (Meropenem 1g/Ns 100ml Ivpb) 1 gm in 100 mls @ 100 mls/hr IVPB Q12 [facility] PRN Reason: Protocol Stop: 09/15/17 14:01 Last Admin: 09/10/17 21:47 Dose: 100 mls/hr Propofol (Diprivan) 1,000 mg in 100 mls @ 3.13 mls/hr IV .Q24H PRN; Protocol; 5 MCG/KG/MIN PRN Reason: TITRATE PER MD ORDER Last Admin: 09/11/17 05:40 Dose: 31.95 mcg/kg/min, 20 mls/hr Doxycycline Hyclate 100 mg/ (Sodium Chloride) 100 mls @ 100 mls/hr IVPB Q12 [facility]MAN PRN Reason: Protocol Stop: 09/19/17 22:01 Last Admin: 09/10/17 21:49 Dose: 100 mls/hr Ibuprofen (Motrin Oral Susp) 600 mg PO Q6H PRN PRN Reason: Fever >100.4 F Last Admin: 09/11/17 06:00 Dose: 600 mg Insulin Human Regular (Humulin R High) 0 units SC Q4H [facility]MAN PRN Reason: Protocol Last Admin: 09/11/17 04:00 Dose: Not Given Lorazepam (Ativan) 2 mg IVP Q4H PRN PRN Reason: Agitation Last Admin: 09/09/17 18:28 Dose: 2 mg Midodrine (Proamatine) 10 mg PO TID [facility] Last Admin: 09/10/17 18:01 Dose: 10 mg Pantoprazole Sodium (Protonix Inj) 40 mg IVP DAILY [facility] Last Admin: 09/10/17 09:18 Dose: 40 mg Ticagrelor (Brilinta) 90 mg PO BID [facility] Last Admin: 09/10/17 18:01 Dose: 90 mg - Labs Labs: 09/11/17 06:00 09/11/17 06:00 PT 17.1 SECONDS (9.4-12.5) H 09/05/17 21:45 INR 1.49 (0.93-1.08) H 09/05/17 21:45 APTT 67.0 Seconds (25.1-36.5) H 09/11/17 06:00 - Constitutional Appears: Chronically Ill - Head Exam Head Exam: NORMAL INSPECTION, NORMOCEPHALIC - Eye Exam Eye Exam: Normal appearance. absent: Conjunctival injection, Scleral icterus - ENT Exam Additional comments: ET tube in place - Respiratory Exam Additional comments: Intubated on vent - Cardiovascular Exam Cardiovascular Exam: REGULAR RHYTHM, RRR, +S1, +S2. absent: Murmur - GI/Abdominal Exam GI & Abdominal Exam: Soft, Normal Bowel Sounds. absent: Firm, Guarding, Rigid, Tenderness - Extremities Exam Extremities Exam: Normal Inspection - Neurological Exam Additional comments: sedated - Psychiatric Exam Additional comments: sedated - Skin Skin Exam: Dry, Intact Assessment and Plan - Assessment and Plan (Free Text) Assessment: 67 yr old male with PMH with CAD s/p 15 stents, COPD, rheumatoid arthritis found to be in hypoxic respiratory distress, ARDS, NSTEMI, community acquired pneumonia and septic shock secondary to urosepsis with positive blood cultures. Plan: NSTEMI * troponin elevated * Cardiology (Dr. Arias) following, recs appreciated * Unstable for Cardiac cath * Echo: dilated LV, EF 25-30%, hypokinesis of LV, trace AR, mild/mod MR, mild TR, dilated IVC * ASA * heparin drip * brilinta 90 mg PO BID * holding Beta blockers 2/2 hypotension * holding crestor 2/2 rhabdo and elevated LFTs Respiratory failure * pneumonia vs acute decompensated CHF vs. history of COPD * intubated and sedated on precedex, diprivan * on dombutamine and midodrine * fentanyl drip * CT chest: New alveolar and interstitial infiltrates are seen in both lower lobes as well as the right upper lobe. This is superimposed upon chronic emphysematous changes * ABG showing respiratory alkalosis * negative for MRSA * flu negative * legionella negative * duonebs OLMAN and PRN * solumedrol 50 mg IV Q12 * lasix prn * doxycycline, meropenem EMMA * Lasix prn * will monitor UTI * Repeat blood and urine prelim negative * UA showing elevated leuk esterase and nitrate * blood cultures showing E. coli * urine culture showing E. coli * abx as above * repeat cultured and repeat procalcitonin in light of spiking temps E. coli bacteremia * repeat culture and repeat procalcitonin in light of spiking temps * leukoctosis 11.8 * Procalcitonin trending down 14.38 * blood and urine cultures positive for E. coli * Repeat blood and urine prelim negative * Sputum: + yeast * ID consulted, recs appreciated * abx as above Left inguinal hernia * CT abd/pel:There is a 5 cm diameter left inguinal hernia that contains a portion of the sigmoid colon. There is no obstruction * not causing problems at this time Hypotension * dobutamine gtt, levophed gtt and midodrine * Maintain MAP above 65 * holding beta adali for now Immunocompromised 2/2 RA * Bactrim for PCP ppx discontinued due to renal impairment PPX * GI protonix * DVT heparin drip Discussed with Dr. Virgilio Gutierrez PGY2 <Susan Poole - Last Filed: 09/11/17 15:20> Objective - Vital Signs/Intake and Output Vital Signs (last 24 hours): Temp Pulse Resp BP Pulse Ox 97 F L 97 H 30 H 113/69 97 09/11/17 12:00 09/11/17 14:00 09/11/17 07:18 09/11/17 14:08 09/11/17 08:20 Intake and Output: 09/11/17 09/11/17 06:59 18:59 Intake Total 400 2188 Output Total 1000 Balance 400 1188 - Medications Medications: Current Medications Albuterol/Ipratropium (Duoneb 3 Mg/0.5 Mg (3 Ml) Ud) 3 ml IH Q2H PRN PRN Reason: Shortness of Breath Last Admin: 09/07/17 04:25 Dose: 3 ml Albuterol/Ipratropium (Duoneb 3 Mg/0.5 Mg (3 Ml) Ud) 3 ml IH [id number] [facility] Last Admin: 09/11/17 13:27 Dose: 3 ml Aspirin (Aspirin Chewable) 81 mg PO DAILY [facility] Last Admin: 09/11/17 09:09 Dose: 81 mg Furosemide (Lasix) 20 mg IVP DAILY [facility] Last Admin: 09/11/17 09:07 Dose: 20 mg Haloperidol Lactate (Haldol) 2 mg IVP Q2H PRN; Protocol PRN Reason: Agitation Hydrocortisone Sodium Succinate (Solu-Cortef) 50 mg IVP Q12H [facility] Last Admin: 09/11/17 08:00 Dose: 50 mg Heparin Sodium/Sodium Chloride (Heparin 62481 Units/250ml 1/2 Normal Saline) 25 ,000 units in 250 mls @ 11.485 mls/hr IV .[id number] OLMAN; 12 UNITS/KG/HR PRN Reason: Protocol Last Admin: 09/11/17 13:54 Dose: 19.22 units/kg/hr, 18.4 mls/hr Dobutamine HCl/Dextrose (Dobutamine/Dextrose 5% 500mg/250ml) 500 mg in 250 mls @ 7.327 mls/hr IV .Q24H PRN; Protocol; 2.5 MCG/KG/MIN PRN Reason: TITRATE PER PROTOCOL Last Admin: 09/11/17 12:55 Dose: 5 mcg/kg/min, 14.654 mls/hr Fentanyl Citrate (Fentanyl Citrate/Sodium Chloride 1 Mg/100 Ml) 1,000 mcg in 100 mls @ 5 mls/hr IV .Q20H PRN; Protocol; 50 MCG/HR PRN Reason: TITRATE PER MD ORDER Last Admin: 09/11/17 06:59 Dose: 100 mcg/hr, 10 mls/hr Dexmedetomidine HCl (Precedex 4 Mcg/Ml (100 Ml)) 400 mcg in 100 mls @ 5.107 mls /hr IV .[id number] PRN; Protocol; 0.2 MCG/KG/HR PRN Reason: Agitation Last Admin: 09/11/17 10:52 Dose: 0.5 mcg/kg/hr, 12.769 mls/hr Meropenem/Sodium Chloride (Meropenem 1g/Ns 100ml Ivpb) 1 gm in 100 mls @ 100 mls/hr IVPB Q12 [facility]MAN PRN Reason: Protocol Stop: 09/15/17 14:01 Last Admin: 09/11/17 09:07 Dose: 100 mls/hr Propofol (Diprivan) 1,000 mg in 100 mls @ 3.13 mls/hr IV .Q24H PRN; Protocol; 5 MCG/KG/MIN PRN Reason: TITRATE PER MD ORDER Last Admin: 09/11/17 10:59 Dose: 31.95 mcg/kg/min, 20 mls/hr Doxycycline Hyclate 100 mg/ (Sodium Chloride) 100 mls @ 100 mls/hr IVPB Q12 [facility]MAN PRN Reason: Protocol Stop: 09/19/17 22:01 Last Admin: 09/11/17 09:17 Dose: 100 mls/hr NOREPINEPHRINE BIT/0.9 % NACL (Levophed 4 Mg/ 250 Ml Ns Premixed) 4 mg in 250 mls @ 15 mls/hr IV .[id number] PRN; Protocol; 4 MCG/MIN PRN Reason: TITRATE PER MD ORDER Ibuprofen (Motrin Oral Susp) 600 mg PO Q6H PRN PRN Reason: Fever >100.4 F Last Admin: 09/11/17 06:00 Dose: 600 mg Insulin Human Regular (Humulin R High) 0 units SC Q4H [facility]MAN PRN Reason: Protocol Last Admin: 09/11/17 12:57 Dose: 4 units Lorazepam (Ativan) 2 mg IVP Q4H PRN PRN Reason: Agitation Last Admin: 09/09/17 18:28 Dose: 2 mg Midodrine (Proamatine) 10 mg PO TID [facility] Last Admin: 09/11/17 13:53 Dose: 10 mg Pantoprazole Sodium (Protonix Inj) 40 mg IVP DAILY [facility] Last Admin: 09/11/17 09:08 Dose: 40 mg Ticagrelor (Brilinta) 90 mg PO BID [facility] Last Admin: 09/11/17 09:09 Dose: 90 mg - Labs Labs: 09/11/17 06:00 09/11/17 13:00 PT 17.1 SECONDS (9.4-12.5) H 09/05/17 21:45 INR 1.49 (0.93-1.08) H 09/05/17 21:45 APTT 67.0 Seconds (25.1-36.5) H 09/11/17 06:00 Attending/Attestation - Attestation I have personally seen and examined this patient.: Yes I have fully participated in the care of the patient.: Yes I have reviewed all pertinent clinical information, including history, physical exam and plan: Yes Notes (Text): 09/11/17 15:16 67 year old male with past medical history of CAD s/p stents, COPD, diabetes and RA who presented with complaint of chest pain and chills. He was found to have NSTEMI, rhabdomyolysis, pneumonia, E coli bacteremia/UTI and elevated LFTs. Continue with aspirin, brilinta and heparin drip. Echocardiogram was reviewed. Consider cardiac cath when stable as per cardiology. Statin is on hold due to elevated LFTs. BB is on hold due to hypotension. He is on dobutamine and restarted on levophed today. 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 Metabolic acidosis has improved after bicarb drip. Renal function also slightly improved. Nephrology is following. Continue with intermittent lasix. Continue with iv antibiotics as per ID. He is currently on doxycycline and meropenem. Although he continues to have fever, his procalcitonin and leukocytosis have overall improved. Prognosis is guarded. Susan Poole MD Hospitalist.
[2017-09-11 07:57] LABS: ARTERIAL BLOOD GAS HCO3 25.4 mmol/L (21-28); ARTERIAL BLOOD GAS HEMOGLOBIN 9.4 g/dL (11.7-17.4); ARTERIAL BLOOD GAS O2 CAPACITY 12.9 mL/dl (16-24); ARTERIAL BLOOD GAS O2 CONTENT 11.1 ML/dl (15-23); ARTERIAL BLOOD GAS O2 SAT 86.3 % (95-98); ARTERIAL BLOOD GAS PCO2 41 mm/Hg (35-45); ARTERIAL BLOOD GAS TCO2 26.7 mmol.L (22-28)
[2017-09-11] MEDS: Meropenem 1g/NS 100mL IVPB 1 GM/100 ML PIGGYBACK IVPB SCH ×2 (09:07→21:43)
--- NOTE | 2017-09-11 09:14 | RAD ---
HISTORY: f/u COMPARISON: 09/10/2017 FINDINGS: LUNGS: There is a significant increase in the bilateral alveolar infiltrates most consistent with pulmonary edema PLEURA: No significant pleural effusion identified, no pneumothorax apparent. CARDIOVASCULAR: Moderate cardiomegaly OSSEOUS STRUCTURES: No significant abnormalities. VISUALIZED UPPER ABDOMEN: Normal. OTHER FINDINGS: Central lines and tubes unchanged IMPRESSION: Increasing pulmonary edema
--- NOTE | 2017-09-11 10:25 | CP.PCM.PN ---
Subjective - Date & Time of Evaluation Date of Evaluation: 09/10/17 Time of Evaluation: 19:00 - Subjective Subjective: Follow up Nephrology Consultation: Assessment: critical Acute Kidney Injury (N17.9) sec to ATN from sepsis syndrome/cardiogenic shock combined respi and metabolic acidosis with lactic acidosis with acute hypoxic hypercapneic respi failure acute CHF with cardiogenic shock with acute NH UTI with sepsis and shock DM, HTN, CAD s/p stent, COPD with emphysema and active smoker Plan Renal function seems to be plateauing today with good urine output off pressors, only on dobutamine for inotrope support can use lasix for diuresis no hd needs lytes are otherwise stable S: seen and examined remains critically ill on vent Physical Examination: General Appearance: ill appearing, orally intubated Head; Atraumatic, normocephalic ENT: orally intubated EYES: Sclera is anicteric. Neck; supple no lymphadenopathy, no thyromegaly or bruit Lungs: Increased respiratory rate/effort. mechanical bs and dec at bases Heart: Increased rate. s1s2 normal. No rub or gallop. Extremities: no edema. No varicose veins Neurological: Patient is sedated Skin: Warm and dry Abdomen: Abdomen is soft. Bowel sounds +. Psych: unable MSK: no joint tenderness or swelling Objective - Vital Signs/Intake and Output Vital Signs (last 24 hours): Temp Pulse Resp BP Pulse Ox 99.1 F 96 H 30 H 106/68 97 09/11/17 08:20 09/11/17 08:20 09/11/17 07:18 09/11/17 09:07 09/11/17 08:20 Intake and Output: 09/11/17 09/11/17 06:59 18:59 Intake Total 400 1488 Output Total 1000 Balance 400 488 - Medications Medications: Current Medications Albuterol/Ipratropium (Duoneb 3 Mg/0.5 Mg (3 Ml) Ud) 3 ml IH Q2H PRN PRN Reason: Shortness of Breath Last Admin: 09/07/17 04:25 Dose: 3 ml Albuterol/Ipratropium (Duoneb 3 Mg/0.5 Mg (3 Ml) Ud) 3 ml IH [id number] OLMAN Last Admin: 09/11/17 07:10 Dose: 3 ml Aspirin (Aspirin Chewable) 81 mg PO DAILY [facility] Last Admin: 09/11/17 09:09 Dose: 81 mg Furosemide (Lasix) 20 mg IVP DAILY [facility] Last Admin: 09/11/17 09:07 Dose: 20 mg Haloperidol Lactate (Haldol) 2 mg IVP Q2H PRN; Protocol PRN Reason: Agitation Hydrocortisone Sodium Succinate (Solu-Cortef) 50 mg IVP Q12H [facility] Last Admin: 09/11/17 08:00 Dose: 50 mg Heparin Sodium/Sodium Chloride (Heparin 38623 Units/250ml 1/2 Normal Saline) 25 ,000 units in 250 mls @ 11.485 mls/hr IV .[id number] OLMAN; 12 UNITS/KG/HR PRN Reason: Protocol Last Titration: 09/11/17 00:33 Dose: 19.22 units/kg/hr, 18.4 mls/hr Dobutamine HCl/Dextrose (Dobutamine/Dextrose 5% 500mg/250ml) 500 mg in 250 mls @ 7.327 mls/hr IV .Q24H PRN; Protocol; 2.5 MCG/KG/MIN PRN Reason: TITRATE PER PROTOCOL Last Admin: 09/10/17 16:09 Dose: 5 mcg/kg/min, 14.654 mls/hr Fentanyl Citrate (Fentanyl Citrate/Sodium Chloride 1 Mg/100 Ml) 1,000 mcg in 100 mls @ 5 mls/hr IV .Q20H PRN; Protocol; 50 MCG/HR PRN Reason: TITRATE PER MD ORDER Last Admin: 09/11/17 06:59 Dose: 100 mcg/hr, 10 mls/hr Dexmedetomidine HCl (Precedex 4 Mcg/Ml (100 Ml)) 400 mcg in 100 mls @ 5.107 mls /hr IV .[id number] PRN; Protocol; 0.2 MCG/KG/HR PRN Reason: Agitation Last Admin: 09/11/17 03:14 Dose: 0.5 mcg/kg/hr, 12.769 mls/hr Meropenem/Sodium Chloride (Meropenem 1g/Ns 100ml Ivpb) 1 gm in 100 mls @ 100 mls/hr IVPB Q12 [facility]MAN PRN Reason: Protocol Stop: 09/15/17 14:01 Last Admin: 09/11/17 09:07 Dose: 100 mls/hr Propofol (Diprivan) 1,000 mg in 100 mls @ 3.13 mls/hr IV .Q24H PRN; Protocol; 5 MCG/KG/MIN PRN Reason: TITRATE PER MD ORDER Last Admin: 09/11/17 05:40 Dose: 31.95 mcg/kg/min, 20 mls/hr Doxycycline Hyclate 100 mg/ (Sodium Chloride) 100 mls @ 100 mls/hr IVPB Q12 [facility]MAN PRN Reason: Protocol Stop: 09/19/17 22:01 Last Admin: 09/10/17 21:49 Dose: 100 mls/hr Ibuprofen (Motrin Oral Susp) 600 mg PO Q6H PRN PRN Reason: Fever >100.4 F Last Admin: 09/11/17 06:00 Dose: 600 mg Insulin Human Regular (Humulin R High) 0 units SC Q4H [facility]MAN PRN Reason: Protocol Last Admin: 09/11/17 04:00 Dose: Not Given Lorazepam (Ativan) 2 mg IVP Q4H PRN PRN Reason: Agitation Last Admin: 09/09/17 18:28 Dose: 2 mg Midodrine (Proamatine) 10 mg PO TID [facility] Last Admin: 09/11/17 09:09 Dose: 10 mg Pantoprazole Sodium (Protonix Inj) 40 mg IVP DAILY [facility] Last Admin: 09/11/17 09:08 Dose: 40 mg Ticagrelor (Brilinta) 90 mg PO BID [facility] Last Admin: 09/11/17 09:09 Dose: 90 mg - Labs Labs: 09/11/17 06:00 09/11/17 06:00 PT 17.1 SECONDS (9.4-12.5) H 09/05/17 21:45 INR 1.49 (0.93-1.08) H 09/05/17 21:45 APTT 67.0 Seconds (25.1-36.5) H 09/11/17 06:00
[2017-09-11 10:31] LABS: ARTERIAL BLOOD GAS HEMOGLOBIN 10.1 g/dL (11.7-17.4); ARTERIAL BLOOD GAS O2 CAPACITY 13.8 mL/dl (16-24); ARTERIAL BLOOD GAS O2 CONTENT 13.1 ML/dl (15-23); ARTERIAL BLOOD GAS O2 SAT 94.9 % (95-98); ARTERIAL BLOOD GAS PCO2 45 mm/Hg (35-45); ARTERIAL BLOOD GAS PH 7.37 (7.35-7.45); ARTERIAL BLOOD GAS TCO2 27.4 mmol.L (22-28)
--- NOTE | 2017-09-11 11:18 | PN ---
DATE: 09/11/2017 SNOW REMOVER NOTE SUBJECTIVE: Patient is resting on with the ventilator, is getting oxygen support with FiO2 of 100% at this time. The patient is still on dobutamine and heparin IV and we will administer Lasix this morning to continue diuresis. The patient is on propofol for sedation. PHYSICAL EXAMINATION: VITAL SIGNS: His temperature is 99.1, pulse is 96, respirations are 22, and BP is 120/72. SKIN: Warm and dry. HEENT: Head atraumatic, normocephalic. Eyes reactive to light. Ear, nose and throat seemed to be within normal limits. NECK: Supple. No JVD. No thyroid enlargement, no lymph nodes. HEART: Has regular rate and rhythm. Normal S1, S2. LUNGS: Reveal mild rhonchi bilaterally. ABDOMEN: Soft. Decreased bowel sounds. GENITALIA AND RECTAL: Deferred. MUSCULOSKELETAL: No joint deformities. EXTREMITIES: Reveal trace lower extremity edema. NEUROLOGIC: Patient is sedated on the ventilator. LABORATORY DATA: As far as laboratories are concerned, his white count is 11.8, hemoglobin is 9.7, hematocrit 30.1 with platelets of 167,000. Arterial blood gas reveals a pH of 7.40, pCO2 of 41, pO2 of 49, but on his monitor O2 sat, he is satting at 94%. This is on 80% FiO2. His sodium is 150, potassium 4.4, chloride 112, CO2 of 25 with a BUN of 94, creatinine of 2.1 and a glucose of 205. Chest x-ray reveals bilateral infiltrates as an unofficial reading. IMPRESSION: As far as my impression, this patient has sepsis positive for Escherichia coli in the blood and the urine. He has bilateral pneumonia with acute respiratory distress syndrome and acute myocardial infarction. The patient has respiratory failure, on the ventilator with a FiO2 at this time of 100%. The patient has anemia and renal insufficiency as well. PLAN: As far as our plan, we will continue with ventilator support and try and decrease the FiO2 as tolerated. The patient will get Lasix for diuresis. He is on Diprivan as well as dobutamine and IV heparin. He is getting DuoNeb as well as meropenem and Zithromax. The patient is getting Solu-Cortef, Protonix and we will follow closely and treat aggressively along with the other consultants and the primary care doctor. Devan Wilkinson MD [facility] # [id number]
--- NOTE | 2017-09-11 11:52 | PN ---
DATE: SUBJECTIVE: The patient is in bed, in no acute distress, remains intubated on ventilator, continues to have fever. PHYSICAL EXAMINATION VITAL SIGNS: Temperature is 100.6; blood pressure is 120/70; respiratory rate, on the vent; heart rate is 98. HEENT: Examination is unremarkable. His ET tube is in place. NECK: Supple. LUNGS: Decreased breath sounds. HEART: Normal S1 and S2. ABDOMEN: Soft. DATA: Laboratory examination reveals a white count of 11,800, hemoglobin of 9, platelets of 167,000. BUN of 94, creatinine 2.1, and the patient's procalcitonin is down to 14.3 from 41. Urinalysis is noted, 10 to 15 wbc's, influenza is negative. Urine for legionella antigen is negative. Microbiology reveals initial blood cultures grew E. coli at admission with E. coli in the urine and repeat blood cultures are negative, MRSA is not detected. Review of orders reveals the patient to be on dobutamine, doxycycline, meropenem and intermittent vancomycin. Chest x-ray from this morning is pending. Yesterday's chest x-ray is reviewed. No change in bilateral alveolar infiltrates. ASSESSMENT AND PLAN: This is a 67-year-old male, seen earlier today in [facility], bed 5, who was admitted with septic shock with Escherichia coli bacteremia secondary to Escherichia coli in urine, must rule out underlying prostate disease associated with acute kidney injury on top of chronic kidney injury complicated with non-ST elevation myocardial infarction, healthcare-associated pneumonia, elevated procalcitonin although it is in face of renal failure, currently on intermittent IV vancomycin, meropenem, and doxycycline, day #3 of the antibiotics. Repeat cultures negative. We will check on PSA also. Azael Lara MD
[2017-09-11] MEDS ORDERED: NOREPINEPHRINE BIT/0.9 % NACL 4 MG/250 ML BAG IV PRN (12:48)
[2017-09-11] MEDS: DOBUTamine 500mg/250ml D5W 500 MG/250 ML BAG IV PRN (12:55)
[2017-09-11 13:29] LABS: CALCIUM 8.5 mg/dL (8.4-10.5)
[2017-09-11] MEDS: Heparin25000 units/250ml 1/2NS 25,000 UNITS/250 ML BAG IV SCH (13:54)
--- NOTE | 2017-09-11 16:45 | CP.PCM.PN ---
Subjective - Date & Time of Evaluation Date of Evaluation: 09/11/17 Time of Evaluation: 16:45 - Subjective Subjective: Follow up Nephrology Consultation: Assessment: critical Acute Kidney Injury (N17.9) sec to ATN from sepsis syndrome/cardiogenic shock combined respi and metabolic acidosis with lactic acidosis with acute hypoxic hypercapneic respi failure acute CHF with cardiogenic shock with acute PA UTI with sepsis and shock DM, HTN, CAD s/p stent, COPD with emphysema and active smoker Plan Renal function seems to be plateauing today with good urine output off pressors agree with lasix for diuresis no hd needs lytes are otherwise stable avoid NSAIDS as may hamper renal recovery process S: seen and examined remains critically ill on vent Physical Examination: General Appearance: ill appearing, orally intubated Head; Atraumatic, normocephalic ENT: orally intubated EYES: Sclera is anicteric. Neck; supple no lymphadenopathy, no thyromegaly or bruit Lungs: Increased respiratory rate/effort. mechanical bs and dec at bases Heart: Increased rate. s1s2 normal. No rub or gallop. Extremities: no edema. No varicose veins Neurological: Patient is sedated Skin: Warm and dry Abdomen: Abdomen is soft. Bowel sounds +. Psych: unable MSK: no joint tenderness or swelling Objective - Vital Signs/Intake and Output Vital Signs (last 24 hours): Temp Pulse Resp BP Pulse Ox 97 F L 97 H 30 H 113/69 97 09/11/17 12:00 09/11/17 14:00 09/11/17 07:18 09/11/17 14:08 09/11/17 08:20 Intake and Output: 09/11/17 09/11/17 06:59 18:59 Intake Total 400 2388 Output Total 1000 Balance 400 1388 - Medications Medications: Current Medications Albuterol/Ipratropium (Duoneb 3 Mg/0.5 Mg (3 Ml) Ud) 3 ml IH Q2H PRN PRN Reason: Shortness of Breath Last Admin: 09/07/17 04:25 Dose: 3 ml Albuterol/Ipratropium (Duoneb 3 Mg/0.5 Mg (3 Ml) Ud) 3 ml IH [id number] [facility] Last Admin: 09/11/17 13:27 Dose: 3 ml Aspirin (Aspirin Chewable) 81 mg PO DAILY [facility] Last Admin: 09/11/17 09:09 Dose: 81 mg Furosemide (Lasix) 20 mg IVP DAILY [facility] Last Admin: 09/11/17 09:07 Dose: 20 mg Haloperidol Lactate (Haldol) 2 mg IVP Q2H PRN; Protocol PRN Reason: Agitation Hydrocortisone Sodium Succinate (Solu-Cortef) 50 mg IVP Q12H [facility] Last Admin: 09/11/17 08:00 Dose: 50 mg Heparin Sodium/Sodium Chloride (Heparin 00011 Units/250ml 1/2 Normal Saline) 25 ,000 units in 250 mls @ 11.485 mls/hr IV .[id number] [facility]MAN; 12 UNITS/KG/HR PRN Reason: Protocol Last Admin: 09/11/17 13:54 Dose: 19.22 units/kg/hr, 18.4 mls/hr Dobutamine HCl/Dextrose (Dobutamine/Dextrose 5% 500mg/250ml) 500 mg in 250 mls @ 7.327 mls/hr IV .Q24H PRN; Protocol; 2.5 MCG/KG/MIN PRN Reason: TITRATE PER PROTOCOL Last Admin: 09/11/17 12:55 Dose: 5 mcg/kg/min, 14.654 mls/hr Fentanyl Citrate (Fentanyl Citrate/Sodium Chloride 1 Mg/100 Ml) 1,000 mcg in 100 mls @ 5 mls/hr IV .Q20H PRN; Protocol; 50 MCG/HR PRN Reason: TITRATE PER MD ORDER Last Admin: 09/11/17 15:58 Dose: 100 mcg/hr, 10 mls/hr Dexmedetomidine HCl (Precedex 4 Mcg/Ml (100 Ml)) 400 mcg in 100 mls @ 5.107 mls /hr IV .[id number] PRN; Protocol; 0.2 MCG/KG/HR PRN Reason: Agitation Last Admin: 09/11/17 10:52 Dose: 0.5 mcg/kg/hr, 12.769 mls/hr Meropenem/Sodium Chloride (Meropenem 1g/Ns 100ml Ivpb) 1 gm in 100 mls @ 100 mls/hr IVPB Q12 [facility] PRN Reason: Protocol Stop: 09/15/17 14:01 Last Admin: 09/11/17 09:07 Dose: 100 mls/hr Propofol (Diprivan) 1,000 mg in 100 mls @ 3.13 mls/hr IV .Q24H PRN; Protocol; 5 MCG/KG/MIN PRN Reason: TITRATE PER MD ORDER Last Admin: 09/11/17 15:55 Dose: 31.95 mcg/kg/min, 20 mls/hr Doxycycline Hyclate 100 mg/ (Sodium Chloride) 100 mls @ 100 mls/hr IVPB Q12 [facility] PRN Reason: Protocol Stop: 09/19/17 22:01 Last Admin: 09/11/17 09:17 Dose: 100 mls/hr NOREPINEPHRINE BIT/0.9 % NACL (Levophed 4 Mg/ 250 Ml Ns Premixed) 4 mg in 250 mls @ 15 mls/hr IV .[id number] PRN; Protocol; 4 MCG/MIN PRN Reason: TITRATE PER MD ORDER Ibuprofen (Motrin Oral Susp) 600 mg PO Q6H PRN PRN Reason: Fever >100.4 F Last Admin: 09/11/17 06:00 Dose: 600 mg Insulin Human Regular (Humulin R High) 0 units SC Q4H [facility]MAN PRN Reason: Protocol Last Admin: 09/11/17 15:26 Dose: 4 units Lorazepam (Ativan) 2 mg IVP Q4H PRN PRN Reason: Agitation Last Admin: 09/09/17 18:28 Dose: 2 mg Midodrine (Proamatine) 10 mg PO TID [facility] Last Admin: 09/11/17 13:53 Dose: 10 mg Pantoprazole Sodium (Protonix Inj) 40 mg IVP DAILY [facility] Last Admin: 09/11/17 09:08 Dose: 40 mg Ticagrelor (Brilinta) 90 mg PO BID [facility] Last Admin: 09/11/17 09:09 Dose: 90 mg - Labs Labs: 09/11/17 06:00 09/11/17 13:00 PT 17.1 SECONDS (9.4-12.5) H 09/05/17 21:45 INR 1.49 (0.93-1.08) H 09/05/17 21:45 APTT 67.0 Seconds (25.1-36.5) H 09/11/17 06:00
--- NOTE | 2017-09-11 19:08 | PN ---
DATE: 09/11/2017 REASON FOR CONSULTATION AND FOLLOWUP: Cardiac evaluation, non-ST segment myocardial infarction, gram-negative sepsis, septic shock, intubated, respiratory failure, febrile, hypotension, requiring multiple vasopressors. SUBJECTIVE: Patient still remains on the vent, on PEEP of 16 still, oxygen saturation is low, possible shunting the oxygen, not well oxygenated. PHYSICAL EXAMINATION VITAL SIGNS: Temperature 101.3, heart rate 97, blood pressure 120/72. HEENT: PERRLA. Extraocular muscles intact. NECK: Supple. No carotid bruit or thyromegaly. CHEST: Clear to auscultation. HEART: S1 and S2 regular. ABDOMEN: Soft. EXTREMITIES: Clubbing and cyanosis, negative. LABORATORY DATA: Blood workup as follows: WBC 11.8, hemoglobin 9.7, hematocrit 30.1, platelet count 167. Chemistry showed sodium 150, potassium 4.4, chloride 112, carbon dioxide 29, anion gap of 17, BUN 94, creatinine 2.1. IMPRESSION: Fever, sepsis, acute kidney injury on chronic renal insufficiency, hypernatremia, anion gap 17, acidosis, respiratory failure, hypoxemia, shunting of the AA gradient, respiratory failure, on heparin for non-ST segment myocardial infarction, as well as atrial fibrillation; on sedation, 2.5 mcg of Dobutrex. RECOMMENDATIONS: Continue broad-spectrum antibiotic, gentle diuretics, increase diuresis so oxygenation can be improved. We will give 40 of Lasix. We will give free fluids through the NG tube. Overall, patient's condition is critical. Long-term prognosis is guarded. We will follow with you. We will give 40 of Lasix to improve oxygenation. A chest x-ray, officially read as increasing pulmonary edema. We will review the films that is consistent with right lower lobe pneumonia and fluffy infiltrate, bilateral lower base and right upper base, getting the picture of ARDS. Thank you, , for providing us the opportunity in taking care of the patient, Blanco Russell. Gracia Arias MD
[2017-09-12] MEDS: Insulin Reg-HIGH-Coverage SC SCH
[2017-09-12] MEDS: Albuterol-Ipratrop 3 mg / 0.5 (3 ml) UD IH SCH ×4 (01:15→20:37)
[2017-09-12] MEDS: Fentanyl 1000mcg/100ml NS 1,000 MCG/100 ML BAG IV PRN ×3 (02:00→21:31)
[2017-09-12] MEDS: Heparin25000 units/250ml 1/2NS 25,000 UNITS/250 ML BAG IV SCH (03:30)
[2017-09-12] MEDS: Dexmedetomidine 400mcg/100mL 400 MCG/100 ML BOTTLE IV PRN (05:17)
[2017-09-12] MEDS: Propofol 10 mg/ml 1,000 MG/100 ML VIAL IV PRN ×4 (05:22→23:47)
[2017-09-12 06:34] LABS: ARTERIAL BLOOD GAS HCO3 28.7 mmol/L (21-28); ARTERIAL BLOOD GAS O2 SAT 94.4 % (95-98); ARTERIAL BLOOD GAS PCO2 64 mm/Hg (35-45); ARTERIAL BLOOD GAS PH 7.26 (7.35-7.45); ARTERIAL BLOOD GAS TCO2 30.7 mmol.L (22-28)
[2017-09-12] MEDS: DOBUTamine 500mg/250ml D5W 500 MG/250 ML BAG IV PRN (07:00)
[2017-09-12 07:06] LABS: HEMOGLOBIN 9.3 g/dL (14.0-18.0); MEAN CELL VOLUME 98.7 fl (80.0-105.0); MEAN CORPUSCULAR HGB CONC 30.4 g/dl (31.0-37.0); RBC 3.1 10^6/uL (3.5-6.1); RED CELL DISTRIBUTION WIDTH 16.5 % (11.5-14.5); WHITE BLOOD COUNT 13.7 10^3/ul (4.5-11.0)
[2017-09-12 07:35] LABS: ALBUMIN 3.1 g/dL (3.0-4.8); CALCIUM 8.6 mg/dL (8.4-10.5); MAGNESIUM 2.9 mg/dL (1.7-2.2)
[2017-09-12] MEDS ORDERED: Insulin Regular 1 UNITS/0.01 ML ML SC STA (07:46)
[2017-09-12] MEDS ORDERED: Dextrose 50% SYRINGE Inj (50 ml) IVP ONE (07:46)
[2017-09-12] MEDS ORDERED: Sod Polystyrene Sulf 15 gm/60 ml Susp PR STA (07:51)
[2017-09-12] MEDS ORDERED: Insulin Regular 100 UNITS in Sodium Chloride 0.9% 99 ML IV PRN ×2 (07:56→08:11)
--- NOTE | 2017-09-12 10:20 | CP.PCM.PN ---
Subjective - Date & Time of Evaluation Date of Evaluation: 09/12/17 Time of Evaluation: 10:00 - Subjective Subjective: Patient noted to be on 100 % FiO2 with increased pulmonary edema as seen on CXR. Not on pressors, still on the ventilator and sedated. Objective - Vital Signs/Intake and Output Vital Signs (last 24 hours): Temp Pulse Resp BP Pulse Ox 98.8 F 93 H 30 H 121/68 100 09/12/17 08:20 09/12/17 08:20 09/11/17 07:18 09/12/17 07:46 09/12/17 08:20 Intake and Output: 09/12/17 09/12/17 06:59 18:59 Intake Total 710 2040 Output Total 650 Balance 710 1390 - Medications Medications: Current Medications Albuterol/Ipratropium (Duoneb 3 Mg/0.5 Mg (3 Ml) Ud) 3 ml IH Q2H PRN PRN Reason: Shortness of Breath Last Admin: 09/07/17 04:25 Dose: 3 ml Albuterol/Ipratropium (Duoneb 3 Mg/0.5 Mg (3 Ml) Ud) 3 ml IH [id number] [facility] Last Admin: 09/12/17 07:53 Dose: 3 ml Aspirin (Aspirin Chewable) 81 mg PO DAILY [facility] Last Admin: 09/11/17 09:09 Dose: 81 mg Furosemide (Lasix) 20 mg IVP DAILY [facility] Last Admin: 09/11/17 09:07 Dose: 20 mg Haloperidol Lactate (Haldol) 2 mg IVP Q2H PRN; Protocol PRN Reason: Agitation Hydrocortisone Sodium Succinate (Solu-Cortef) 50 mg IVP Q12H [facility] Last Admin: 09/12/17 08:00 Dose: 50 mg Heparin Sodium/Sodium Chloride (Heparin 08143 Units/250ml 1/2 Normal Saline) 25 ,000 units in 250 mls @ 11.485 mls/hr IV .[id number] [facility]; 12 UNITS/KG/HR PRN Reason: Protocol Last Admin: 09/12/17 03:30 Dose: 19.22 units/kg/hr, 18.395 mls/hr Dobutamine HCl/Dextrose (Dobutamine/Dextrose 5% 500mg/250ml) 500 mg in 250 mls @ 7.327 mls/hr IV .Q24H PRN; Protocol; 2.5 MCG/KG/MIN PRN Reason: TITRATE PER PROTOCOL Last Admin: 09/11/17 12:55 Dose: 5 mcg/kg/min, 14.654 mls/hr Fentanyl Citrate (Fentanyl Citrate/Sodium Chloride 1 Mg/100 Ml) 1,000 mcg in 100 mls @ 5 mls/hr IV .Q20H PRN; Protocol; 50 MCG/HR PRN Reason: TITRATE PER MD ORDER Last Admin: 09/12/17 02:00 Dose: 100 mcg/hr, 10 mls/hr Dexmedetomidine HCl (Precedex 4 Mcg/Ml (100 Ml)) 400 mcg in 100 mls @ 5.107 mls /hr IV .[id number] PRN; Protocol; 0.2 MCG/KG/HR PRN Reason: Agitation Last Admin: 09/12/17 05:17 Dose: 0.5 mcg/kg/hr, 12.769 mls/hr Meropenem/Sodium Chloride (Meropenem 1g/Ns 100ml Ivpb) 1 gm in 100 mls @ 100 mls/hr IVPB Q12 [facility] PRN Reason: Protocol Stop: 09/15/17 14:01 Last Admin: 09/11/17 21:43 Dose: 100 mls/hr Propofol (Diprivan) 1,000 mg in 100 mls @ 3.13 mls/hr IV .Q24H PRN; Protocol; 5 MCG/KG/MIN PRN Reason: TITRATE PER MD ORDER Last Admin: 09/12/17 05:22 Dose: 15.97 mcg/kg/min, 10 mls/hr Doxycycline Hyclate 100 mg/ (Sodium Chloride) 100 mls @ 100 mls/hr IVPB Q12 [facility] PRN Reason: Protocol Stop: 09/19/17 22:01 Last Admin: 09/12/17 09:44 Dose: 100 mls/hr NOREPINEPHRINE BIT/0.9 % NACL (Levophed 4 Mg/ 250 Ml Ns Premixed) 4 mg in 250 mls @ 15 mls/hr IV .[id number] PRN; Protocol; 4 MCG/MIN PRN Reason: TITRATE PER MD ORDER Insulin Human Regular 100 (units/ Sodium Chloride) 100 mls @ 0.5 mls/hr IV .Q24H PRN; Protocol; 0.5 UNITS/HR PRN Reason: TITRATE PER MD ORDER Last Admin: 09/12/17 09:32 Dose: 4 units/hr, 4 mls/hr Ibuprofen (Motrin Oral Susp) 600 mg PO Q6H PRN PRN Reason: Fever >100.4 F Last Admin: 09/11/17 06:00 Dose: 600 mg Insulin Human Regular (Humulin R High) 0 units SC Q4H [facility] PRN Reason: Protocol Last Admin: 09/12/17 00:00 Dose: Not Given Lorazepam (Ativan) 2 mg IVP Q4H PRN PRN Reason: Agitation Last Admin: 09/09/17 18:28 Dose: 2 mg Midodrine (Proamatine) 10 mg PO TID [facility] Last Admin: 09/11/17 17:55 Dose: 10 mg Pantoprazole Sodium (Protonix Inj) 40 mg IVP DAILY [facility] Last Admin: 09/11/17 09:08 Dose: 40 mg Ticagrelor (Brilinta) 90 mg PO BID [facility] Last Admin: 09/11/17 17:54 Dose: 90 mg - Labs Labs: 09/12/17 06:45 09/12/17 06:45 PT 17.1 SECONDS (9.4-12.5) H 09/05/17 21:45 INR 1.49 (0.93-1.08) H 09/05/17 21:45 APTT 91.3 Seconds (25.1-36.5) H 09/12/17 06:45 - Constitutional Appears: Other (intubated and sedated) - Head Exam Head Exam: NORMAL INSPECTION - ENT Exam Additional comments: ET tube in place - Respiratory Exam Respiratory Exam: Decreased Breath Sounds, Rales (difuse) - Cardiovascular Exam Cardiovascular Exam: +S1, +S2 - GI/Abdominal Exam GI & Abdominal Exam: Soft. absent: Tenderness Assessment and Plan - Assessment and Plan (Free Text) Plan: Assessment severe sepsis S/P shock with VDRF and renal failure due to E. coli bacteremia, consider urine as the source, on top of possible myocardial infarction and possible pneumonia, now also with increasing pulmonary edema history of acute cholecystitis, S/P laparoscopic cholecystectomy HTN atrial fibrillation with history of cardioversion rheumatoid arthritis COPD dyslipidemia history of pancreatitis S/P left ACL repair CAD S/P PCI S/P left toe amputation Plan continue Merrem day 4 and Doxycycline (for pneumonia); MRSA nares is negative; urine Legionella Ag is negative; rapid flu test is negative; has been given a dose of IV vanco as well will continue to monitor clinically
--- NOTE | 2017-09-12 10:25 | CP.PCM.PN ---
<Spring Li - Last Filed: 09/12/17 10:22> Subjective - Date & Time of Evaluation Date of Evaluation: 09/12/17 Time of Evaluation: 10:22 - Subjective Subjective: ICU Progress Note for Billy Crawley PGY2 Patient seen and examined at bedside. As per nursing staff, there were no acute overnight events. Patient is intubated and sedated. ROS could not be obtained. Objective - Vital Signs/Intake and Output Vital Signs (last 24 hours): Temp Pulse Resp BP Pulse Ox 99.1 F 95 H 34 H 132/61 100 09/12/17 09:50 09/12/17 09:50 09/12/17 09:05 09/12/17 10:14 09/12/17 09:50 Intake and Output: 09/12/17 09/12/17 06:59 18:59 Intake Total 710 2060 Output Total 650 Balance 710 1410 - Medications Medications: Current Medications Albuterol/Ipratropium (Duoneb 3 Mg/0.5 Mg (3 Ml) Ud) 3 ml IH Q2H PRN PRN Reason: Shortness of Breath Last Admin: 09/07/17 04:25 Dose: 3 ml Albuterol/Ipratropium (Duoneb 3 Mg/0.5 Mg (3 Ml) Ud) 3 ml IH [id number] [facility] Last Admin: 09/12/17 07:53 Dose: 3 ml Aspirin (Aspirin Chewable) 81 mg PO DAILY [facility] Last Admin: 09/11/17 09:09 Dose: 81 mg Furosemide (Lasix) 60 mg IVP Q12 [facility] Hydrocortisone Sodium Succinate (Solu-Cortef) 50 mg IVP Q12H [facility] Last Admin: 09/12/17 08:00 Dose: 50 mg Heparin Sodium/Sodium Chloride (Heparin 67814 Units/250ml 1/2 Normal Saline) 25 ,000 units in 250 mls @ 11.485 mls/hr IV .[id number] [facility]; 12 UNITS/KG/HR PRN Reason: Protocol Last Admin: 09/12/17 03:30 Dose: 19.22 units/kg/hr, 18.395 mls/hr Dobutamine HCl/Dextrose (Dobutamine/Dextrose 5% 500mg/250ml) 500 mg in 250 mls @ 7.327 mls/hr IV .Q24H PRN; Protocol; 2.5 MCG/KG/MIN PRN Reason: TITRATE PER PROTOCOL Last Admin: 09/11/17 12:55 Dose: 5 mcg/kg/min, 14.654 mls/hr Fentanyl Citrate (Fentanyl Citrate/Sodium Chloride 1 Mg/100 Ml) 1,000 mcg in 100 mls @ 5 mls/hr IV .Q20H PRN; Protocol; 50 MCG/HR PRN Reason: TITRATE PER MD ORDER Last Admin: 09/12/17 02:00 Dose: 100 mcg/hr, 10 mls/hr Meropenem/Sodium Chloride (Meropenem 1g/Ns 100ml Ivpb) 1 gm in 100 mls @ 100 mls/hr IVPB Q12 [facility] PRN Reason: Protocol Stop: 09/15/17 14:01 Last Admin: 09/11/17 21:43 Dose: 100 mls/hr Propofol (Diprivan) 1,000 mg in 100 mls @ 3.13 mls/hr IV .Q24H PRN; Protocol; 5 MCG/KG/MIN PRN Reason: TITRATE PER MD ORDER Last Admin: 09/12/17 05:22 Dose: 15.97 mcg/kg/min, 10 mls/hr Doxycycline Hyclate 100 mg/ (Sodium Chloride) 100 mls @ 100 mls/hr IVPB Q12 [facility] PRN Reason: Protocol Stop: 09/19/17 22:01 Last Admin: 09/12/17 09:44 Dose: 100 mls/hr NOREPINEPHRINE BIT/0.9 % NACL (Levophed 4 Mg/ 250 Ml Ns Premixed) 4 mg in 250 mls @ 15 mls/hr IV .[id number] PRN; Protocol; 4 MCG/MIN PRN Reason: TITRATE PER MD ORDER Insulin Human Regular 100 (units/ Sodium Chloride) 100 mls @ 0.5 mls/hr IV .Q24H PRN; Protocol; 0.5 UNITS/HR PRN Reason: TITRATE PER MD ORDER Last Admin: 09/12/17 09:32 Dose: 4 units/hr, 4 mls/hr Ibuprofen (Motrin Oral Susp) 600 mg PO Q6H PRN PRN Reason: Fever >100.4 F Last Admin: 09/11/17 06:00 Dose: 600 mg Lorazepam (Ativan) 2 mg IVP Q4H PRN PRN Reason: Agitation Last Admin: 09/09/17 18:28 Dose: 2 mg Midodrine (Proamatine) 10 mg PO TID [facility] Last Admin: 09/11/17 17:55 Dose: 10 mg Pantoprazole Sodium (Protonix Inj) 40 mg IVP DAILY [facility] Last Admin: 09/11/17 09:08 Dose: 40 mg Ticagrelor (Brilinta) 90 mg PO BID [facility] Last Admin: 09/11/17 17:54 Dose: 90 mg - Labs Labs: 09/12/17 06:45 09/12/17 06:45 PT 17.1 SECONDS (9.4-12.5) H 09/05/17 21:45 INR 1.49 (0.93-1.08) H 09/05/17 21:45 APTT 91.3 Seconds (25.1-36.5) H 09/12/17 06:45 - Constitutional Appears: No Acute Distress, Chronically Ill - Head Exam Head Exam: ATRAUMATIC, NORMAL INSPECTION, NORMOCEPHALIC - Eye Exam Eye Exam: PERRL Pupil Exam: PERRL - ENT Exam ENT Exam: Mucous Membranes Moist Additional comments: some dried blood in oropharynx - Neck Exam Neck Exam: Full ROM - Respiratory Exam Respiratory Exam: Decreased Breath Sounds (bilaterally ), Rales (at bases), NORMAL BREATHING PATTERN. absent: Rhonchi, Wheezes - Cardiovascular Exam Cardiovascular Exam: Irregular Rhythm, +S1, +S2. absent: Gallop, Rubs, Murmur - GI/Abdominal Exam GI & Abdominal Exam: Soft, Normal Bowel Sounds. absent: Rigid, Tenderness, Mass , Rebound - Extremities Exam Extremities Exam: Pedal Edema - Neurological Exam Neurological Exam: CN II-XII Intact - Skin Skin Exam: Dry, Warm Assessment and Plan - Assessment and Plan (Free Text) Assessment: This is 67 yr old male with PMH with CAD s/p 15 stents, COPD, rheumatoid arthritis found to be in hypoxic respiratory distress, ARDS, NSTEMI, community acquired pneumonia and septic shock secondary to urosepsis with positive blood cultures. Now found to have pulmonary edema as well as MEMA. Plan: Neuro: Intubated, Sedated on Propofol with Fentanyl Precedex was d/c Maintain normothermia CV: NSTEMI, w/ a.fib (rate controlled) CXR showed pulmonary edema Lasix increased to 60q12 Continue Dobutamine and Midodrine Cardio on consult- continue Heparin drip, ASA and Brillinta Maintain MAP >65 Echo showed EF 65% Monitor I&O Pulm: Hypoxic Resp failure, Community acquired pneumonia, ARDS (improved), Pulm vasc congestion on CXR On Volume control- will titrate to maintain spO2>92% Duonebs Protective Vent strategy HOB elevated, aspiration precaution Solucortef 50q12 GI: Feeds switched to Nepro with free water flushes Transaminitis improved Heme: Hgb stable- no overt signs of bleeding Will continue to monitor CBC Nephro: EMMA with hyperkalemia and elevated BUN K: 6.1 Will start pt on insulin drip, and give her kayexalate and Calcium gluconate Increased lasix to 60q12 for pulm vasc congestion Nephro consulted- recs appreciated Monitor I&O Contintue to monitor electrolytes and replace as needed Maintain euvolemia ID: Urosepsis, Community Acquired pneumonia Blood culture and urine culture + for G- lauren ID on consult- recs appreciated Procal trending down Continue Merrem and Doxy Flu, Legionella and step pneumo negative Endo: Hx of DM On insulin drip for hyperkalemia BGM q1h Maintain euglycemia (140-180) GI ppx: Protonix DVT ppx: Heparin drip Case seen, discussed reviewed with attending. Billy Li PGY2 <Mack Hart - Last Filed: 09/12/17 12:27> Objective - Vital Signs/Intake and Output Vital Signs (last 24 hours): Temp Pulse Resp BP Pulse Ox 99.3 F 104 H 12 130/68 100 09/12/17 11:50 09/12/17 11:50 09/12/17 10:10 09/12/17 11:46 09/12/17 11:50 Intake and Output: 09/12/17 09/12/17 06:59 18:59 Intake Total 710 2413 Output Total 650 Balance 710 9813 - Medications Medications: Current Medications Albuterol/Ipratropium (Duoneb 3 Mg/0.5 Mg (3 Ml) Ud) 3 ml IH Q2H PRN PRN Reason: Shortness of Breath Last Admin: 09/07/17 04:25 Dose: 3 ml Albuterol/Ipratropium (Duoneb 3 Mg/0.5 Mg (3 Ml) Ud) 3 ml IH [id number] [facility] Last Admin: 09/12/17 07:53 Dose: 3 ml Aspirin (Aspirin Chewable) 81 mg PO DAILY [facility] Last Admin: 09/12/17 10:29 Dose: 81 mg Furosemide (Lasix) 60 mg IVP Q12 [facility] Hydrocortisone Sodium Succinate (Solu-Cortef) 50 mg IVP Q12H [facility] Last Admin: 09/12/17 08:00 Dose: 50 mg Heparin Sodium/Sodium Chloride (Heparin 64991 Units/250ml 1/2 Normal Saline) 25 ,000 units in 250 mls @ 11.485 mls/hr IV .[id number] [facility]; 12 UNITS/KG/HR PRN Reason: Protocol Last Admin: 09/12/17 03:30 Dose: 19.22 units/kg/hr, 18.395 mls/hr Dobutamine HCl/Dextrose (Dobutamine/Dextrose 5% 500mg/250ml) 500 mg in 250 mls @ 7.327 mls/hr IV .Q24H PRN; Protocol; 2.5 MCG/KG/MIN PRN Reason: TITRATE PER PROTOCOL Last Admin: 09/12/17 07:00 Dose: 5 mcg/kg/min, 14.654 mls/hr Fentanyl Citrate (Fentanyl Citrate/Sodium Chloride 1 Mg/100 Ml) 1,000 mcg in 100 mls @ 5 mls/hr IV .Q20H PRN; Protocol; 50 MCG/HR PRN Reason: TITRATE PER MD ORDER Last Admin: 09/12/17 11:48 Dose: 100 mcg/hr, 10 mls/hr Meropenem/Sodium Chloride (Meropenem 1g/Ns 100ml Ivpb) 1 gm in 100 mls @ 100 mls/hr IVPB Q12 [facility] PRN Reason: Protocol Stop: 09/15/17 14:01 Last Admin: 09/12/17 10:27 Dose: 100 mls/hr Propofol (Diprivan) 1,000 mg in 100 mls @ 3.13 mls/hr IV .Q24H PRN; Protocol; 5 MCG/KG/MIN PRN Reason: TITRATE PER MD ORDER Last Admin: 09/12/17 05:22 Dose: 15.97 mcg/kg/min, 10 mls/hr Doxycycline Hyclate 100 mg/ (Sodium Chloride) 100 mls @ 100 mls/hr IVPB Q12 [facility] PRN Reason: Protocol Stop: 09/19/17 22:01 Last Admin: 09/12/17 09:44 Dose: 100 mls/hr Insulin Human Regular 100 (units/ Sodium Chloride) 100 mls @ 0.5 mls/hr IV .Q24H PRN; Protocol; 0.5 UNITS/HR PRN Reason: TITRATE PER MD ORDER Last Titration: 09/12/17 10:31 Dose: 2 units/hr, 2 mls/hr Midodrine (Proamatine) 10 mg PO TID [facility] Last Admin: 09/12/17 10:28 Dose: 10 mg Pantoprazole Sodium (Protonix Inj) 40 mg IVP DAILY [facility] Last Admin: 09/12/17 10:28 Dose: 40 mg Ticagrelor (Brilinta) 90 mg PO BID [facility] Last Admin: 09/12/17 10:29 Dose: 90 mg Vitamin A (Vitamin A & D Oint Ud Foilpak) 1 ea TOP Q8 PRN PRN Reason: Dry skin - Labs Labs: 09/12/17 06:45 09/12/17 06:45 PT 17.1 SECONDS (9.4-12.5) H 09/05/17 21:45 INR 1.49 (0.93-1.08) H 09/05/17 21:45 APTT 91.3 Seconds (25.1-36.5) H 09/12/17 06:45 Assessment and Plan - Assessment and Plan (Free Text) Plan: Patient seen and examined with resident, agree with note with following additions/exceptions: Patient is 67yo male with PMHx of CAD with 15 stents, RA on MTX, HTN, presented with NSTEMI, and gram negative bacteremia, subsequently went into respiratory failure, ARDS, septic/cardiogenic shock, requiring vasopressors. Pt was intubated, sedated, paralyzed, placed on low tidal vol (6cc/PBW). Currently intubated, sedated, off Levophed/Vasopressin, on Dobutamine. Bedside EF 20-25% on ECHO. CXR with bilateral alevaolar infiltrates likely combination of PNA with PUlm edema. patient being adequately diuresed, good UOP. Still requiring high FiO2/PEEP, difficult to wean down, and off ventilator. May require Trach/PEG. Respiratory failure ARDS PNA RA on MTX NSTEMI Septic Shock, resolved Cardiogenic Shock, resolved Renal Failure Recommend: - cont with ventilatory support, low tidal vol ventilation, goal plateau<30, frequent ABG monitoring - taper IV steroids - IV diuresis, Lasix - Cont with broad spectrum antibiocs, as per ID - follow up repeat Blood culture, Procal - follow up ID - cont with Dobutamine - ASA, Plavix, Statin, heparin drip - Follow up ECHO official results - Follow up Cardiology - monitor UOP, follow up Nephro - FS control - GI ppx - DVT ppx patient at high risk for morbidity and mortality critical care time 40 minutes
[2017-09-12] MEDS: Meropenem 1g/NS 100mL IVPB 1 GM/100 ML PIGGYBACK IVPB SCH ×2 (10:27→21:33)
--- NOTE | 2017-09-12 10:41 | RAD ---
HISTORY: f/u COMPARISON: 09/11/2017 FINDINGS: LUNGS: There is slight improvement in the bilateral alveolar infiltrates. Central tubes unchanged PLEURA: No significant pleural effusion identified, no pneumothorax apparent. CARDIOVASCULAR: Normal. OSSEOUS STRUCTURES: No significant abnormalities. VISUALIZED UPPER ABDOMEN: Normal. OTHER FINDINGS: None. IMPRESSION: There is slight improvement in the bilateral alveolar infiltrates. Central tubes unchanged
--- NOTE | 2017-09-12 11:50 | CP.PCM.PN ---
Subjective - Date & Time of Evaluation Date of Evaluation: 09/12/17 Time of Evaluation: 11:50 - Subjective Subjective: Follow up Nephrology Consultation: please call us if any qs or concerns at Assessment: critical Acute Kidney Injury (N17.9) sec to ATN from sepsis syndrome/cardiogenic shock hyperkalemia hypernatremia azotemia combined respi and metabolic acidosis with lactic acidosis with acute hypoxic hypercapneic respi failure acute CHF with cardiogenic shock with acute WA Urosepsis DM, HTN, CAD s/p stent, COPD with emphysema and active smoker Plan non oliguric denisse, monitor I&Os azotemia sec to steroids and Tube feeds, agree with lasix for diuresis, should help with electrolytes hyperkalemia: medical management TF: discuss with gambreler helper for renal Tube feeds hypernatremia: can increase free water per tube;salt free water has minimal effect on volume overload. d/w primary icu team. S: seen and examined remains critically ill on vent Physical Examination: General Appearance: ill appearing, orally intubated Head; Atraumatic, normocephalic ENT: orally intubated EYES: Sclera is anicteric. Neck; supple no lymphadenopathy, no thyromegaly or bruit Lungs: Increased respiratory rate/effort. mechanical bs and dec at bases Heart: Increased rate. s1s2 normal. No rub or gallop. Extremities: no edema. No varicose veins Neurological: Patient is sedated Skin: Warm and dry Abdomen: Abdomen is soft. Bowel sounds +. Psych: unable MSK: no joint tenderness or swelling Objective - Vital Signs/Intake and Output Vital Signs (last 24 hours): Temp Pulse Resp BP Pulse Ox 99.1 F 95 H 34 H 132/61 100 09/12/17 09:50 09/12/17 09:50 09/12/17 09:05 09/12/17 10:14 09/12/17 09:50 Intake and Output: 09/12/17 09/12/17 06:59 18:59 Intake Total 710 2063 Output Total 650 Balance 710 1413 - Medications Medications: Current Medications Albuterol/Ipratropium (Duoneb 3 Mg/0.5 Mg (3 Ml) Ud) 3 ml IH Q2H PRN PRN Reason: Shortness of Breath Last Admin: 09/07/17 04:25 Dose: 3 ml Albuterol/Ipratropium (Duoneb 3 Mg/0.5 Mg (3 Ml) Ud) 3 ml IH [id number] [facility] Last Admin: 09/12/17 07:53 Dose: 3 ml Aspirin (Aspirin Chewable) 81 mg PO DAILY [facility] Last Admin: 09/12/17 10:29 Dose: 81 mg Furosemide (Lasix) 60 mg IVP Q12 [facility] Hydrocortisone Sodium Succinate (Solu-Cortef) 50 mg IVP Q12H [facility] Last Admin: 09/12/17 08:00 Dose: 50 mg Heparin Sodium/Sodium Chloride (Heparin 94653 Units/250ml 1/2 Normal Saline) 25 ,000 units in 250 mls @ 11.485 mls/hr IV .[id number] OLMAN; 12 UNITS/KG/HR PRN Reason: Protocol Last Admin: 09/12/17 03:30 Dose: 19.22 units/kg/hr, 18.395 mls/hr Dobutamine HCl/Dextrose (Dobutamine/Dextrose 5% 500mg/250ml) 500 mg in 250 mls @ 7.327 mls/hr IV .Q24H PRN; Protocol; 2.5 MCG/KG/MIN PRN Reason: TITRATE PER PROTOCOL Last Admin: 09/11/17 12:55 Dose: 5 mcg/kg/min, 14.654 mls/hr Fentanyl Citrate (Fentanyl Citrate/Sodium Chloride 1 Mg/100 Ml) 1,000 mcg in 100 mls @ 5 mls/hr IV .Q20H PRN; Protocol; 50 MCG/HR PRN Reason: TITRATE PER MD ORDER Last Admin: 09/12/17 02:00 Dose: 100 mcg/hr, 10 mls/hr Meropenem/Sodium Chloride (Meropenem 1g/Ns 100ml Ivpb) 1 gm in 100 mls @ 100 mls/hr IVPB Q12 [facility] PRN Reason: Protocol Stop: 09/15/17 14:01 Last Admin: 09/12/17 10:27 Dose: 100 mls/hr Propofol (Diprivan) 1,000 mg in 100 mls @ 3.13 mls/hr IV .Q24H PRN; Protocol; 5 MCG/KG/MIN PRN Reason: TITRATE PER MD ORDER Last Admin: 09/12/17 05:22 Dose: 15.97 mcg/kg/min, 10 mls/hr Doxycycline Hyclate 100 mg/ (Sodium Chloride) 100 mls @ 100 mls/hr IVPB Q12 [facility] PRN Reason: Protocol Stop: 09/19/17 22:01 Last Admin: 09/12/17 09:44 Dose: 100 mls/hr Insulin Human Regular 100 (units/ Sodium Chloride) 100 mls @ 0.5 mls/hr IV .Q24H PRN; Protocol; 0.5 UNITS/HR PRN Reason: TITRATE PER MD ORDER Last Titration: 09/12/17 10:31 Dose: 2 units/hr, 2 mls/hr Midodrine (Proamatine) 10 mg PO TID [facility] Last Admin: 09/12/17 10:28 Dose: 10 mg Pantoprazole Sodium (Protonix Inj) 40 mg IVP DAILY [facility] Last Admin: 09/12/17 10:28 Dose: 40 mg Ticagrelor (Brilinta) 90 mg PO BID [facility] Last Admin: 09/12/17 10:29 Dose: 90 mg Vitamin A (Vitamin A & D Oint Ud Foilpak) 1 ea TOP Q8 PRN PRN Reason: Dry skin - Labs Labs: 09/12/17 06:45 09/12/17 06:45 PT 17.1 SECONDS (9.4-12.5) H 09/05/17 21:45 INR 1.49 (0.93-1.08) H 09/05/17 21:45 APTT 91.3 Seconds (25.1-36.5) H 09/12/17 06:45
[2017-09-12 12:56] LABS: ARTERIAL BLOOD GAS HCO3 24.6 mmol/L (21-28); ARTERIAL BLOOD GAS HEMOGLOBIN 8.3 g/dL (11.7-17.4); ARTERIAL BLOOD GAS O2 CAPACITY 11.8 mL/dl (16-24); ARTERIAL BLOOD GAS O2 CONTENT 11.9 ML/dl (15-23); ARTERIAL BLOOD GAS O2 SAT 100.5 % (95-98); ARTERIAL BLOOD GAS PCO2 56 mm/Hg (35-45); ARTERIAL BLOOD GAS PH 7.25 (7.35-7.45); ARTERIAL BLOOD GAS TCO2 26.3 mmol.L (22-28)
[2017-09-12 14:07] LABS: CALCIUM 8.7 mg/dL (8.4-10.5)
[2017-09-12] MEDS ORDERED: Sod Polystyrene Sulf 15 gm/60 ml Susp PO ONE (14:18)
--- NOTE | 2017-09-12 15:20 | CP.PCM.PN ---
<Ana Interiano - Last Filed: 09/12/17 15:12> Subjective - Date & Time of Evaluation Date of Evaluation: 09/12/17 Time of Evaluation: 15:12 - Subjective Subjective: Ana Interiano, PGY1, Medicine Progress Note for Dr Barroso: Patient seen and examined at bedside. Pt febrile overnight, 101.8 F at 9 PM. Started cooling blanket. Pt remains sedated on propofol, fentanyl and precedex, does not respond to stimulation or opens eyes. ROS unobtainable as pt is intubated and sedated. Objective - Vital Signs/Intake and Output Vital Signs (last 24 hours): Temp Pulse Resp BP Pulse Ox 99.9 F H 104 H 12 125/65 100 09/12/17 13:50 09/12/17 13:50 09/12/17 10:10 09/12/17 13:46 09/12/17 13:50 Intake and Output: 09/12/17 09/12/17 06:59 18:59 Intake Total 710 2698 Output Total 650 Balance 710 2048 - Medications Medications: Current Medications Albuterol/Ipratropium (Duoneb 3 Mg/0.5 Mg (3 Ml) Ud) 3 ml IH Q2H PRN PRN Reason: Shortness of Breath Last Admin: 09/07/17 04:25 Dose: 3 ml Albuterol/Ipratropium (Duoneb 3 Mg/0.5 Mg (3 Ml) Ud) 3 ml IH [id number] [facility] Last Admin: 09/12/17 13:12 Dose: 3 ml Aspirin (Aspirin Chewable) 81 mg PO DAILY [facility] Last Admin: 09/12/17 10:29 Dose: 81 mg Furosemide (Lasix) 60 mg IVP Q12 [facility] Hydrocortisone Sodium Succinate (Solu-Cortef) 50 mg IVP Q12H [facility] Last Admin: 09/12/17 08:00 Dose: 50 mg Heparin Sodium/Sodium Chloride (Heparin 63094 Units/250ml 1/2 Normal Saline) 25 ,000 units in 250 mls @ 11.485 mls/hr IV .[id number] [facility]MAN; 12 UNITS/KG/HR PRN Reason: Protocol Last Titration: 09/12/17 12:52 Dose: 17.22 units/kg/hr, 16.481 mls/hr Dobutamine HCl/Dextrose (Dobutamine/Dextrose 5% 500mg/250ml) 500 mg in 250 mls @ 7.327 mls/hr IV .Q24H PRN; Protocol; 2.5 MCG/KG/MIN PRN Reason: TITRATE PER PROTOCOL Last Admin: 09/12/17 07:00 Dose: 5 mcg/kg/min, 14.654 mls/hr Fentanyl Citrate (Fentanyl Citrate/Sodium Chloride 1 Mg/100 Ml) 1,000 mcg in 100 mls @ 5 mls/hr IV .Q20H PRN; Protocol; 50 MCG/HR PRN Reason: TITRATE PER MD ORDER Last Admin: 09/12/17 11:48 Dose: 100 mcg/hr, 10 mls/hr Meropenem/Sodium Chloride (Meropenem 1g/Ns 100ml Ivpb) 1 gm in 100 mls @ 100 mls/hr IVPB Q12 [facility] PRN Reason: Protocol Stop: 09/15/17 14:01 Last Admin: 09/12/17 10:27 Dose: 100 mls/hr Propofol (Diprivan) 1,000 mg in 100 mls @ 3.13 mls/hr IV .Q24H PRN; Protocol; 5 MCG/KG/MIN PRN Reason: TITRATE PER MD ORDER Last Admin: 09/12/17 13:09 Dose: 15.97 mcg/kg/min, 10 mls/hr Doxycycline Hyclate 100 mg/ (Sodium Chloride) 100 mls @ 100 mls/hr IVPB Q12 [facility] PRN Reason: Protocol Stop: 09/19/17 22:01 Last Admin: 09/12/17 09:44 Dose: 100 mls/hr Insulin Human Regular 100 (units/ Sodium Chloride) 100 mls @ 0.5 mls/hr IV .Q24H PRN; Protocol; 0.5 UNITS/HR PRN Reason: TITRATE PER MD ORDER Last Titration: 09/12/17 13:50 Dose: 2 units/hr, 2 mls/hr Calcium Gluconate 1,000 mg/ (Dextrose) 110 mls @ 110 mls/hr IVPB ONCE ONE Stop: 09/12/17 15:18 Midodrine (Proamatine) 10 mg PO TID [facility] Last Admin: 09/12/17 10:28 Dose: 10 mg Pantoprazole Sodium (Protonix Inj) 40 mg IVP DAILY [facility] Last Admin: 09/12/17 10:28 Dose: 40 mg Ticagrelor (Brilinta) 90 mg PO BID [facility] Last Admin: 09/12/17 10:29 Dose: 90 mg Vitamin A (Vitamin A & D Oint Ud Foilpak) 1 ea TOP Q8 PRN PRN Reason: Dry skin - Labs Labs: 09/12/17 06:45 09/12/17 13:00 PT 17.1 SECONDS (9.4-12.5) H 09/05/17 21:45 INR 1.49 (0.93-1.08) H 09/05/17 21:45 APTT 87.1 Seconds (25.1-36.5) H 09/12/17 13:00 - Additional Findings Additional findings: - Constitutional Appears: Chronically Ill, remains intubated - Head Exam Head Exam: NORMAL INSPECTION, NORMOCEPHALIC - Eye Exam Eye Exam: Normal appearance. absent: Conjunctival injection, Scleral icterus - ENT Exam Additional comments: ET tube in place - Respiratory Exam Additional comments: Intubated on vent - Cardiovascular Exam Cardiovascular Exam: REGULAR RHYTHM, RRR, +S1, +S2. absent: Murmur - GI/Abdominal Exam GI & Abdominal Exam: Soft, Normal Bowel Sounds. absent: Firm, Guarding, Rigid, Tenderness - Extremities Exam Extremities Exam: Normal Inspection - Neurological Exam Additional comments: sedated - Psychiatric Exam Additional comments: sedated - Skin Skin Exam: Dry, Intact Assessment and Plan - Assessment and Plan (Free Text) Assessment: 67 yr old male with PMH with CAD s/p 15 stents, COPD, rheumatoid arthritis found to be in hypoxic respiratory distress, ARDS, NSTEMI, community acquired pneumonia and septic shock secondary to urosepsis with positive blood cultures. Pt hyperkalemic today, started insulin drip, given calcium gluconate and kayexalate. As per Nephro, switched tube feeds from glucerna to nepro: NSTEMI * troponin elevated * Cardiology (Dr. Arias) following, recs appreciated * Unstable for Cardiac cath * Echo: dilated LV, EF 25-30%, hypokinesis of LV, trace AR, mild/mod MR, mild TR, dilated IVC * ASA * heparin drip * brilinta 90 mg PO BID * holding Beta blockers 2/2 hypotension * holding crestor 2/2 rhabdo and elevated LFTs Respiratory failure * pneumonia vs acute decompensated CHF vs. history of COPD * intubated and sedated on precedex, diprivan * on dombutamine and midodrine * fentanyl drip * CT chest: New alveolar and interstitial infiltrates are seen in both lower lobes as well as the right upper lobe. This is superimposed upon chronic emphysematous changes * ABG showing respiratory alkalosis * negative for MRSA * flu negative * legionella negative * duonebs OLMAN and PRN * solumedrol 50 mg IV Q12 * lasix prn * doxycycline, meropenem Hyperkalemia: - K 6.1. EKG shows no changes. - Started insulin drip. Given calcium gluconate, kayexalate. - Will repeat bmp. Cont to monitor. EMMA * Lasix prn * will monitor * nephro on board. appreciate recs UTI * Repeat blood and urine prelim negative * UA showing elevated leuk esterase and nitrate * blood cultures showing E. coli * urine culture showing E. coli * abx as above * repeat cultured and repeat procalcitonin in light of spiking temps E. coli bacteremia * repeat culture and repeat procalcitonin in light of spiking temps * leukoctosis 11.8 * Procalcitonin trending down 14.38 * blood and urine cultures positive for E. coli * Repeat blood and urine prelim negative * Sputum: + yeast * ID consulted, recs appreciated * abx as above Left inguinal hernia * CT abd/pel:There is a 5 cm diameter left inguinal hernia that contains a portion of the sigmoid colon. There is no obstruction * not causing problems at this time Hypotension * dobutamine gtt, levophed gtt and midodrine * Maintain MAP above 65 * holding beta adali for now Immunocompromised 2/2 RA * Bactrim for PCP ppx discontinued due to renal impairment PPX * GI protonix * DVT heparin drip Discussed with Dr. Barroso. <Gracia Barroso - Last Filed: 09/15/17 12:19> Objective - Vital Signs/Intake and Output Vital Signs (last 24 hours): Temp Pulse Resp BP Pulse Ox 99 F 99 H 32 H 130/72 96 09/15/17 04:00 09/15/17 05:49 09/15/17 08:41 09/15/17 09:46 09/15/17 08:41 Intake and Output: 02/08/18 02/08/18 06:59 18:59 Intake Total 2980 545.0 Output Total 1700 Balance 1280 545.0 - Medications Medications: Current Medications Albuterol/Ipratropium (Duoneb 3 Mg/0.5 Mg (3 Ml) Ud) 3 ml IH Q2H PRN PRN Reason: Shortness of Breath Last Admin: 09/07/17 04:25 Dose: 3 ml Albuterol/Ipratropium (Duoneb 3 Mg/0.5 Mg (3 Ml) Ud) 3 ml IH [id number] [facility] Last Admin: 09/15/17 08:35 Dose: 3 ml Artificial Tears (Artificial Tears Opht Oint) 0 gm OU Q12 [facility] Last Admin: 09/15/17 09:53 Dose: 1 gm Aspirin (Aspirin Chewable) 81 mg PO DAILY [facility] Last Admin: 09/15/17 09:52 Dose: 81 mg Atorvastatin Calcium (Lipitor) 40 mg PO DIN [facility] Last Admin: 09/14/17 18:43 Dose: 40 mg Calcium Acetate (Phoslo) 1,334 mg PO WM [facility] Last Admin: 09/15/17 08:18 Dose: 1,334 mg Enoxaparin Sodium (Lovenox) 100 mg SC Q24H [facility] PRN Reason: Protocol Last Admin: 09/15/17 09:46 Dose: 100 mg Furosemide (Lasix) 40 mg IVP DAILY [facility] Last Admin: 09/15/17 09:46 Dose: 40 mg Dobutamine HCl/Dextrose (Dobutamine/Dextrose 5% 500mg/250ml) 500 mg in 250 mls @ 7.327 mls/hr IV .Q24H PRN; Protocol; 2.5 MCG/KG/MIN PRN Reason: TITRATE PER PROTOCOL Last Admin: 09/15/17 10:59 Dose: 5 mcg/kg/min, 14.654 mls/hr Meropenem/Sodium Chloride (Meropenem 1g/Ns 100ml Ivpb) 1 gm in 100 mls @ 100 mls/hr IVPB Q12 [facility] PRN Reason: Protocol Stop: 09/15/17 14:01 Last Admin: 09/15/17 09:47 Dose: 100 mls/hr Insulin Human Regular 100 (units/ Sodium Chloride) 100 mls @ 0.5 mls/hr IV .Q24H PRN; Protocol; 0.5 UNITS/HR PRN Reason: TITRATE PER MD ORDER Last Titration: 09/15/17 10:00 Dose: 2 units/hr, 2 mls/hr Dexmedetomidine HCl (Precedex 4 Mcg/Ml (100 Ml)) 400 mcg in 100 mls @ 4.853 mls /hr IV .[id number] PRN; Protocol; 0.2 MCG/KG/HR PRN Reason: Agitation Last Admin: 09/15/17 07:47 Dose: 0.2 mcg/kg/hr, 4.853 mls/hr Linezolid (Zyvox 600mg/300ml D5w) 600 mg in 300 mls @ 200 mls/hr IVPB Q12 [facility] PRN Reason: Protocol Stop: 09/21/17 10:01 Last Admin: 09/15/17 09:51 Dose: 200 mls/hr Propofol (Diprivan) 1,000 mg in 100 mls @ 2.912 mls/hr IV .Q24H PRN; Protocol; 5 MCG/KG/MIN PRN Reason: TITRATE PER MD ORDER Last Admin: 09/15/17 08:52 Dose: 40 mcg/kg/min, 23.297 mls/hr Dextrose (Dextrose 5% In Water 1000 Ml) 1,000 mls @ 60 mls/hr IV .[id number] [facility] Last Admin: 09/14/17 19:00 Dose: 60 mls/hr Micafungin Sodium 100 mg/ (Dextrose) 100 mls @ 100 mls/hr IV DAILY [facility] PRN Reason: Protocol Stop: 09/22/17 10:01 Doxycycline Hyclate 100 mg/ (Dextrose) 100 mls @ 100 mls/hr IVPB Q12 [facility] PRN Reason: Protocol Stop: 09/19/17 22:01 Midodrine (Proamatine) 10 mg PO TID [facility] Last Admin: 09/14/17 18:44 Dose: 10 mg Nicotine (Nicoderm Cq) 1 patch TD DAILY [facility] Pantoprazole Sodium (Protonix Inj) 40 mg IVP BID [facility] Last Admin: 09/15/17 09:51 Dose: 40 mg Ticagrelor (Brilinta) 90 mg PO BID [facility] Last Admin: 09/12/17 10:29 Dose: 90 mg Vitamin A (Vitamin A & D Oint Ud Foilpak) 1 ea TOP Q8 PRN PRN Reason: Dry skin - Labs Labs: 09/15/17 05:00 09/15/17 05:00 PT 15.3 SECONDS (9.4-12.5) H 09/14/17 16:20 INR 1.33 (0.93-1.08) H 09/14/17 16:20 APTT 45.1 Seconds (25.1-36.5) H 09/15/17 08:15 Attending/Attestation - Attestation I have personally seen and examined this patient.: Yes I have fully participated in the care of the patient.: Yes I have reviewed all pertinent clinical information, including history, physical exam and plan: Yes Notes (Text): 09/15/17 12:14 Patient was seen and examined with medical transcription. Agreed with resident assessment and plan. 67 yrs old male with PMHx of CAD,SP Multiple cardiac stents,CHF with systolic dysfunction. Rheumatoid arthiristis and HTN was admitted with , NSTEMI, and gram negative bacteremia, subsequently went into respiratory failure, ARDS, septic/cardiogenic shock, requiring vasopressors Currently intubated, sedated, off Levophed on Dobutamine. Patient is hypoxic requiring high FIO2 .CXR with bilateral alevaolar infiltrates likely combination of PNA with Pulmonary edema which is significantly better than yesterday, after diuresis. Sepsis on IV antibiotics as per ID for Pneumonia and Ecoli Bacteremia Renal failure, Creatinin is unchanged, had good urine out but still, Hypernatremic, on free water via NG, Nephrology is following. Hyperkalemia , SP treatment, will follow up LABS. Management plan was discussed with family. Prognosis is guarded. 09/15/17 12:15 09/15/17 12:18
[2017-09-12] MEDS: Heparin25000 units/250ml 1/2NS 25,000 UNITS/250 ML BAG IV PRN (16:05)
--- NOTE | 2017-09-12 16:33 | PN ---
DATE: 09/12/2017 REASON FOR THE CONSULTATION: Followup, cardiac evaluation, non-ST segment elevation myocardial infarction, Gram-negative sepsis, septic shock, intubated, respiratory failure, hypotension, multiorgan dysfunction requiring vasopressors. SUBJECTIVE: The patient remains on vent, mild bleeding, had a bleed from the trauma. OBJECTIVE: GENERAL: Not in apparent distress, sedated, intubated. VITAL SIGNS: Temperature afebrile, heart rate 119, blood pressure 130/68. HEENT: PERRLA. Extraocular muscles intact. NECK: Supple. No carotid bruit or thyromegaly. CHEST: Clear to auscultation. HEART: S1 and S2, regular. ABDOMEN: Soft. EXTREMITIES: Clubbing and cyanosis negative. LABORATORY DATA: Blood workup as follows: WBC 19%, hemoglobin 9.3, hematocrit 30.6, platelet count 174. Chemistry shows sodium 149, potassium 4.6, chloride 109, carbon dioxide , anion gap of 20. BUN 118, creatinine 2.2. Total protein 6, albumin 3.1. IMPRESSION: Hypernatremia, hyperkalemia, Gram-negative sepsis, non-ST segment elevation myocardial infarction, coronary artery disease, cardiomyopathy ischemic, respiratory failure, intubated, hypoxemia, increased A-a gradient, rule out early acute respiratory distress syndrome. RECOMMENDATIONS: Continue broad-spectrum antibiotics, keep negative fluid balance, free fluid through the NG tube for hypernatremia, p.r.n. Lasix. Continue broad spectrum antibiotic, Dobutrex increased to 5. Monitor I's and O's. I will give 40 of Lasix to keep negative fluid balance. Overall, patient's condition is critical. Long-term prognosis is guarded. We will follow with you. I discussed with the son yesterday in length. If the patient continues to bleed, we will hold it for ticagrelor and I will continue aspirin, continue heparin for now. When the patient is extubated, consider cardiac catheterization, though prognosis is extremely guarded. We will follow with you. We will treat hyperkalemia with Kayexalate. We will repeat the lab in the morning. Gracia Arias MD [facility] # [phone]
[2017-09-12 17:18] LABS: ARTERIAL BLOOD GAS HCO3 23.7 mmol/L (21-28); ARTERIAL BLOOD GAS HEMOGLOBIN 8.6 g/dL (11.7-17.4); ARTERIAL BLOOD GAS O2 CAPACITY 11.9 mL/dl (16-24); ARTERIAL BLOOD GAS O2 CONTENT 11.5 ML/dl (15-23); ARTERIAL BLOOD GAS O2 SAT 96.9 % (95-98); ARTERIAL BLOOD GAS PCO2 46 mm/Hg (35-45); ARTERIAL BLOOD GAS PH 7.32 (7.35-7.45); ARTERIAL BLOOD GAS TCO2 25.1 mmol.L (22-28)
--- NOTE | 2017-09-12 17:57 | CARD ---
APPROVED REPORT EKG Measurement Heart [id number] <Conclusion> Atrial fibrillation Left axis deviation Right bundle branch block Anteroseptal infarct, age undetermined T wave abnormality, consider lateral ischemia or digitalis effect Abnormal ECG
[2017-09-12 19:11] LABS: BLOOD UREA NITROGEN > 120 mg/dL (7-21); CALCIUM 8.9 mg/dL (8.4-10.5); GFR AFRICAN-AMERICAN 33; GFR NON-AFRICAN AMERICAN 27
[2017-09-12] MEDS: Mineral Oil/Petrolatum Opht Oint(3.5 gm) OU SCH (21:33)
[2017-09-13] MEDS: Albuterol-Ipratrop 3 mg / 0.5 (3 ml) UD IH SCH ×4 (03:46→20:03)
[2017-09-13] MEDS: DOBUTamine 500mg/250ml D5W 500 MG/250 ML BAG IV PRN ×2 (03:59→23:18)
[2017-09-13] MEDS: Propofol 10 mg/ml 1,000 MG/100 ML VIAL IV PRN ×4 (04:00→22:36)
[2017-09-13] MEDS: Fentanyl 1000mcg/100ml NS 1,000 MCG/100 ML BAG IV PRN (05:19)
[2017-09-13 05:39] LABS: ARTERIAL BLOOD GAS HCO3 25.9 mmol/L (21-28); ARTERIAL BLOOD GAS HEMOGLOBIN 8.5 g/dL (11.7-17.4); ARTERIAL BLOOD GAS O2 CAPACITY 11.7 mL/dl (16-24); ARTERIAL BLOOD GAS O2 CONTENT 11.6 ML/dl (15-23); ARTERIAL BLOOD GAS O2 SAT 99.2 % (95-98); ARTERIAL BLOOD GAS PCO2 47 mm/Hg (35-45); ARTERIAL BLOOD GAS PH 7.35 (7.35-7.45); ARTERIAL BLOOD GAS TCO2 27.3 mmol.L (22-28)
[2017-09-13 06:56] LABS: HEMOGLOBIN 8.8 g/dL (14.0-18.0); MEAN CELL VOLUME 97.3 fl (80.0-105.0); MEAN CORPUSCULAR HEMOGLOBIN 30.1 pg (25.0-35.0); MEAN PLATELET VOLUME 11.9 fl (7.0-11.0); RBC 2.92 10^6/uL (3.5-6.1); RED CELL DISTRIBUTION WIDTH 16.6 % (11.5-14.5); WHITE BLOOD COUNT 13.7 10^3/ul (4.5-11.0)
[2017-09-13 07:50] LABS: ALBUMIN 2.9 g/dL (3.0-4.8); CALCIUM 8.7 mg/dL (8.4-10.5); MAGNESIUM 2.7 mg/dL (1.7-2.2)
[2017-09-13] MEDS: Heparin25000 units/250ml 1/2NS 25,000 UNITS/250 ML BAG IV PRN (08:47)
--- NOTE | 2017-09-13 08:47 | RAD ---
HISTORY: intubated, pulm edema COMPARISON: 09/12/2017 at 5:26 a.m. FINDINGS: LUNGS: Extensive bilateral opacities, minimally improved from prior examination. Predominantly in the left mid and lower and right mid lung. Upper lobes appear spared. PLEURA: No significant pleural effusion identified, no pneumothorax apparent. CARDIOVASCULAR: Normal heart size. ET tube, NG tube and left PICC catheter are all grossly unchanged. OSSEOUS STRUCTURES: No significant abnormalities. VISUALIZED UPPER ABDOMEN: Normal. OTHER FINDINGS: None. IMPRESSION: Extensive bilateral infiltrates slightly improved.
[2017-09-13] MEDS: Meropenem 1g/NS 100mL IVPB 1 GM/100 ML PIGGYBACK IVPB SCH ×2 (09:06→22:33)
[2017-09-13] MEDS: Mineral Oil/Petrolatum Opht Oint(3.5 gm) OU SCH ×2 (10:00→22:00)
--- NOTE | 2017-09-13 10:00 | CP.PCM.PN ---
<Spring Li - Last Filed: 09/13/17 09:57> Subjective - Date & Time of Evaluation Date of Evaluation: 09/13/17 Time of Evaluation: 09:57 - Subjective Subjective: ICU Progress Note for Billy Crawley PGY2 Patient seen and examined at bedside. There were no acute overnight events. Patient is sedated and intubated, but arousable. ROS could not be obtained. Objective - Vital Signs/Intake and Output Vital Signs (last 24 hours): Temp Pulse Resp BP Pulse Ox 99.9 F H 112 H 12 88/50 L 100 09/12/17 19:00 09/13/17 03:59 09/12/17 10:10 09/13/17 03:59 09/12/17 19:00 Intake and Output: 09/13/17 09/13/17 06:59 18:59 Intake Total 692 250 Balance 692 250 - Medications Medications: Current Medications Albuterol/Ipratropium (Duoneb 3 Mg/0.5 Mg (3 Ml) Ud) 3 ml IH Q2H PRN PRN Reason: Shortness of Breath Last Admin: 09/07/17 04:25 Dose: 3 ml Albuterol/Ipratropium (Duoneb 3 Mg/0.5 Mg (3 Ml) Ud) 3 ml IH [id number] [facility] Last Admin: 09/13/17 08:08 Dose: 3 ml Artificial Tears (Artificial Tears Opht Oint) 0 gm OU Q12 [facility] Last Admin: 09/12/17 21:33 Dose: 3.5 gm Aspirin (Aspirin Chewable) 81 mg PO DAILY [facility] Last Admin: 09/13/17 09:07 Dose: 81 mg Atorvastatin Calcium (Lipitor) 40 mg PO DIN [facility] Furosemide (Lasix) 60 mg IVP Q8 [facility] Dobutamine HCl/Dextrose (Dobutamine/Dextrose 5% 500mg/250ml) 500 mg in 250 mls @ 7.327 mls/hr IV .Q24H PRN; Protocol; 2.5 MCG/KG/MIN PRN Reason: TITRATE PER PROTOCOL Last Admin: 09/13/17 03:59 Dose: 5 mcg/kg/min, 14.654 mls/hr Meropenem/Sodium Chloride (Meropenem 1g/Ns 100ml Ivpb) 1 gm in 100 mls @ 100 mls/hr IVPB Q12 [facility] PRN Reason: Protocol Stop: 09/15/17 14:01 Last Admin: 09/13/17 09:06 Dose: 100 mls/hr Propofol (Diprivan) 1,000 mg in 100 mls @ 3.13 mls/hr IV .Q24H PRN; Protocol; 5 MCG/KG/MIN PRN Reason: TITRATE PER MD ORDER Last Admin: 09/13/17 04:00 Dose: 35 mcg/kg/min, 21.908 mls/hr Doxycycline Hyclate 100 mg/ (Sodium Chloride) 100 mls @ 100 mls/hr IVPB Q12 [facility] PRN Reason: Protocol Stop: 09/19/17 22:01 Last Admin: 09/13/17 09:07 Dose: 100 mls/hr Heparin Sodium/Sodium Chloride (Heparin 80542 Units/250ml 1/2 Normal Saline) 25 ,000 units in 250 mls @ 11.485 mls/hr IV .[id number] PRN; Protocol; 12 UNITS/KG/HR PRN Reason: PER MD'S ORDER Last Admin: 09/13/17 08:47 Dose: 17.22 units/kg/hr, 16.481 mls/hr Insulin Human Regular 100 (units/ Sodium Chloride) 100 mls @ 0.5 mls/hr IV .Q24H PRN; Protocol; 0.5 UNITS/HR PRN Reason: TITRATE PER MD ORDER Midodrine (Proamatine) 10 mg PO TID [facility] Last Admin: 09/13/17 09:07 Dose: 10 mg Pantoprazole Sodium (Protonix Inj) 40 mg IVP DAILY [facility] Last Admin: 09/13/17 09:07 Dose: 40 mg Ticagrelor (Brilinta) 90 mg PO BID [facility] Last Admin: 09/12/17 10:29 Dose: 90 mg Vitamin A (Vitamin A & D Oint Ud Foilpak) 1 ea TOP Q8 PRN PRN Reason: Dry skin - Labs Labs: 09/13/17 05:30 09/13/17 05:30 PT 17.1 SECONDS (9.4-12.5) H 09/05/17 21:45 INR 1.49 (0.93-1.08) H 09/05/17 21:45 APTT 63.5 Seconds (25.1-36.5) H 09/13/17 05:30 - Constitutional Appears: No Acute Distress - Head Exam Head Exam: ATRAUMATIC, NORMAL INSPECTION, NORMOCEPHALIC - Eye Exam Eye Exam: Normal appearance, PERRL Pupil Exam: NORMAL ACCOMODATION, PERRL - ENT Exam ENT Exam: Mucous Membranes Moist - Neck Exam Neck Exam: Full ROM - Respiratory Exam Respiratory Exam: Decreased Breath Sounds (at bases), NORMAL BREATHING PATTERN. absent: Rales, Rhonchi, Wheezes - Cardiovascular Exam Cardiovascular Exam: Tachycardia, REGULAR RHYTHM, +S1, +S2. absent: Gallop, Rubs, Murmur - GI/Abdominal Exam GI & Abdominal Exam: Soft, Normal Bowel Sounds. absent: Rigid, Tenderness, Mass , Rebound - Extremities Exam Extremities Exam: Pedal Edema (+ 3 bilaterally ) - Neurological Exam Neurological Exam: CN II-XII Intact - Skin Skin Exam: Dry, Warm Assessment and Plan - Assessment and Plan (Free Text) Assessment: This is 67 yr old male with PMH with CAD s/p 15 stents, COPD, rheumatoid arthritis found to be in hypoxic respiratory distress, ARDS, NSTEMI, community acquired pneumonia and septic shock secondary to urosepsis with positive blood cultures. Patient is noted to have pulmonary edema as well as EMMA. Plan: Neuro: Intubated, Sedated on Propofol Fentanyl d/c today Maintain normothermia CV: NSTEMI with history of a.fib (rate controlled) CXR showed pulmonary edema which has been improving, but still congested Increased Lasix to 60q8 Continue Dobutamine and Midodrine Cardio on consult- Heparin drip, ASA. No plan for cath at this time. Pt started on Lipitor Brillinta on hold for anemia Maintain MAP >65 Monitor I&O Pulm: Hypoxic Resp failure, Community acquired pneumonia, ARDS (improved) Pulm vasc congestion on CXR (improving)- will increase diuresis Intubated- decreased Fio2 to 60% ABG improving will titrate to maintain spO2>92% Protective Vent strategy HOB elevated, aspiration precaution GI: Transaminitis resolved Feeds switched to Nepro with free water flushes Heme: Anemia- Hgb stable Brillinta on hold as per Cardio Will continue to monitor CBC Nephro: EMMA improving, hyperkalemia resolved (K: 4.7) Elevated BUN and hypernatremia secondary to Lasix Will continue free water flushes with feeds Nephro consulted- recs appreciated Monitor I&O Contintue to monitor electrolytes and replace as needed Maintain euvolemia ID: Urosepsis, Community Acquired pneumonia Blood culture and urine culture + for G- lauren, Cultures all now negative ID on consult- recs appreciated Procal trending down Continue Merrem and Doxy Flu, Legionella and step pneumo negative Endo: Hx of DM Continue Insulin drip BGM q1h Maintain euglycemia (140-180) GI ppx: Protonix DVT ppx: Heparin drip Case seen, discussed reviewed with attending. Billy Li PGY2 <Mack Hart - Last Filed: 09/13/17 11:16> Objective - Vital Signs/Intake and Output Vital Signs (last 24 hours): Temp Pulse Resp BP Pulse Ox 99.9 F H 112 H 30 H 88/50 L 91 L 09/12/17 19:00 09/13/17 03:59 09/13/17 08:08 09/13/17 03:59 09/13/17 08:08 Intake and Output: 09/13/17 09/13/17 06:59 18:59 Intake Total 692 250 Balance 692 250 - Medications Medications: Current Medications Albuterol/Ipratropium (Duoneb 3 Mg/0.5 Mg (3 Ml) Ud) 3 ml IH Q2H PRN PRN Reason: Shortness of Breath Last Admin: 09/07/17 04:25 Dose: 3 ml Albuterol/Ipratropium (Duoneb 3 Mg/0.5 Mg (3 Ml) Ud) 3 ml IH [id number] [facility] Last Admin: 09/13/17 08:08 Dose: 3 ml Artificial Tears (Artificial Tears Opht Oint) 0 gm OU Q12 [facility] Last Admin: 09/12/17 21:33 Dose: 3.5 gm Aspirin (Aspirin Chewable) 81 mg PO DAILY [facility] Last Admin: 09/13/17 09:07 Dose: 81 mg Atorvastatin Calcium (Lipitor) 40 mg PO DIN [facility] Furosemide (Lasix) 60 mg IVP Q8 [facility] Dobutamine HCl/Dextrose (Dobutamine/Dextrose 5% 500mg/250ml) 500 mg in 250 mls @ 7.327 mls/hr IV .Q24H PRN; Protocol; 2.5 MCG/KG/MIN PRN Reason: TITRATE PER PROTOCOL Last Admin: 09/13/17 03:59 Dose: 5 mcg/kg/min, 14.654 mls/hr Meropenem/Sodium Chloride (Meropenem 1g/Ns 100ml Ivpb) 1 gm in 100 mls @ 100 mls/hr IVPB Q12 [facility] PRN Reason: Protocol Stop: 09/15/17 14:01 Last Admin: 09/13/17 09:06 Dose: 100 mls/hr Propofol (Diprivan) 1,000 mg in 100 mls @ 3.13 mls/hr IV .Q24H PRN; Protocol; 5 MCG/KG/MIN PRN Reason: TITRATE PER MD ORDER Last Admin: 09/13/17 04:00 Dose: 35 mcg/kg/min, 21.908 mls/hr Doxycycline Hyclate 100 mg/ (Sodium Chloride) 100 mls @ 100 mls/hr IVPB Q12 [facility] PRN Reason: Protocol Stop: 09/19/17 22:01 Last Admin: 09/13/17 09:07 Dose: 100 mls/hr Heparin Sodium/Sodium Chloride (Heparin 36593 Units/250ml 1/2 Normal Saline) 25 ,000 units in 250 mls @ 11.485 mls/hr IV .[id number] PRN; Protocol; 12 UNITS/KG/HR PRN Reason: PER MD'S ORDER Last Admin: 09/13/17 08:47 Dose: 17.22 units/kg/hr, 16.481 mls/hr Insulin Human Regular 100 (units/ Sodium Chloride) 100 mls @ 0.5 mls/hr IV .Q24H PRN; Protocol; 0.5 UNITS/HR PRN Reason: TITRATE PER MD ORDER Midodrine (Proamatine) 10 mg PO TID [facility] Last Admin: 09/13/17 09:07 Dose: 10 mg Pantoprazole Sodium (Protonix Inj) 40 mg IVP DAILY [facility] Last Admin: 09/13/17 09:07 Dose: 40 mg Ticagrelor (Brilinta) 90 mg PO BID [facility] Last Admin: 09/12/17 10:29 Dose: 90 mg Vitamin A (Vitamin A & D Oint Ud Foilpak) 1 ea TOP Q8 PRN PRN Reason: Dry skin - Labs Labs: 09/13/17 05:30 09/13/17 05:30 PT 17.1 SECONDS (9.4-12.5) H 09/05/17 21:45 INR 1.49 (0.93-1.08) H 09/05/17 21:45 APTT 63.5 Seconds (25.1-36.5) H 09/13/17 05:30 Assessment and Plan - Assessment and Plan (Free Text) Plan: Patient seen and examined with resident, agree with note with following additions/exceptions: Patient is 67yo male with PMHx of CAD with 15 stents, RA on MTX, HTN, presented with NSTEMI, and gram negative bacteremia, subsequently went into respiratory failure, ARDS, septic/cardiogenic shock, requiring vasopressors. Pt was intubated, sedated, paralyzed, placed on low tidal vol (6cc/PBW). Currently intubated, sedated, off Levophed/Vasopressin/Paralytics, on Dobutamine. ECHO with EF 25%. CXR with bilateral alevaolar infiltrates likely combination of PNA with Pulm edema which is significantly better than yesterday, after diuresis. FiO2/PEEP requirements are downtrending, currently on FiO2 60%, PEEP 12, sat 92- 94%, ABG with improving P/F ratio. Clinically improving, slowly. Respiratory failure ARDS PNA Cardiogenic Pulm edema RA on MTX NSTEMI Septic Shock, resolved Cardiogenic Shock, resolved Renal Failure Recommend: - cont with ventilatory support, low tidal vol ventilation, goal plateau<30, ABG monitoring, titrate Fio2 down, then PEEP - taper IV steroids - IV diuresis, Lasix, monitor UOP, monitor electrolytes - Cont with broad spectrum antibiocs, as per ID - follow up repeat Blood culture, Procal - follow up ID - cont with Dobutamine - ASA, Plavix, Statin, heparin drip - Follow up Cardiology, ?plan for cath in future - FS control - GI ppx - DVT ppx - Feeds patient at high risk for morbidity and mortality critical care time 35 minutes
--- NOTE | 2017-09-13 10:10 | CP.PCM.PN ---
Subjective - Date & Time of Evaluation Date of Evaluation: 09/13/17 Time of Evaluation: 09:40 - Subjective Subjective: Continues to be on the ventilator, no fevers overnight, oxygenation is better, not on pressors. Objective - Vital Signs/Intake and Output Vital Signs (last 24 hours): Temp Pulse Resp BP Pulse Ox 99.9 F H 112 H 12 88/50 L 100 09/12/17 19:00 09/13/17 03:59 09/12/17 10:10 09/13/17 03:59 09/12/17 19:00 Intake and Output: 09/12/17 09/13/17 18:59 06:59 Intake Total 4949 692 Output Total 1850 Balance 3099 692 - Medications Medications: Current Medications Albuterol/Ipratropium (Duoneb 3 Mg/0.5 Mg (3 Ml) Ud) 3 ml IH Q2H PRN PRN Reason: Shortness of Breath Last Admin: 09/07/17 04:25 Dose: 3 ml Albuterol/Ipratropium (Duoneb 3 Mg/0.5 Mg (3 Ml) Ud) 3 ml IH [id number] [facility] Last Admin: 09/13/17 03:46 Dose: 3 ml Artificial Tears (Artificial Tears Opht Oint) 0 gm OU Q12 [facility] [place] Last Admin: 09/12/17 21:33 Dose: 3.5 gm Aspirin (Aspirin Chewable) 81 mg PO DAILY [facility] [place] Last Admin: 09/12/17 10:29 Dose: 81 mg Furosemide (Lasix) 60 mg IVP Q12 [facility] [place] Dobutamine HCl/Dextrose (Dobutamine/Dextrose 5% 500mg/250ml) 500 mg in 250 mls @ 7.327 mls/hr IV .Q24H PRN; Protocol; 2.5 MCG/KG/MIN PRN Reason: TITRATE PER PROTOCOL Last Admin: 09/13/17 03:59 Dose: 5 mcg/kg/min, 14.654 mls/hr Fentanyl Citrate (Fentanyl Citrate/Sodium Chloride 1 Mg/100 Ml) 1,000 mcg in 100 mls @ 5 mls/hr IV .Q20H PRN; Protocol; 50 MCG/HR PRN Reason: TITRATE PER MD ORDER Last Admin: 09/13/17 05:19 Dose: 100 mcg/hr, 10 mls/hr Meropenem/Sodium Chloride (Meropenem 1g/Ns 100ml Ivpb) 1 gm in 100 mls @ 100 mls/hr IVPB Q12 [facility] PRN Reason: Protocol Stop: 09/15/17 14:01 Last Admin: 09/12/17 21:33 Dose: 100 mls/hr Propofol (Diprivan) 1,000 mg in 100 mls @ 3.13 mls/hr IV .Q24H PRN; Protocol; 5 MCG/KG/MIN PRN Reason: TITRATE PER MD ORDER Last Admin: 09/13/17 04:00 Dose: 35 mcg/kg/min, 21.908 mls/hr Doxycycline Hyclate 100 mg/ (Sodium Chloride) 100 mls @ 100 mls/hr IVPB Q12 [facility] PRN Reason: Protocol Stop: 09/19/17 22:01 Last Admin: 09/12/17 21:48 Dose: 100 mls/hr Insulin Human Regular 100 (units/ Sodium Chloride) 100 mls @ 0.5 mls/hr IV .Q24H PRN; Protocol; 0.5 UNITS/HR PRN Reason: TITRATE PER MD ORDER Last Titration: 09/12/17 21:17 Dose: 3 units/hr, 3 mls/hr Heparin Sodium/Sodium Chloride (Heparin 27028 Units/250ml 1/2 Normal Saline) 25 ,000 units in 250 mls @ 11.485 mls/hr IV .[id number] PRN; Protocol; 12 UNITS/KG/HR PRN Reason: PER MD'S ORDER Last Admin: 09/12/17 16:05 Dose: 17.22 units/kg/hr, 16.481 mls/hr Midodrine (Proamatine) 10 mg PO TID [facility] Last Admin: 09/12/17 19:58 Dose: 10 mg Pantoprazole Sodium (Protonix Inj) 40 mg IVP DAILY [facility] [place] Last Admin: 09/12/17 10:28 Dose: 40 mg Ticagrelor (Brilinta) 90 mg PO BID [facility] [place] Last Admin: 09/12/17 10:29 Dose: 90 mg Vitamin A (Vitamin A & D Oint Ud Foilpak) 1 ea TOP Q8 PRN PRN Reason: Dry skin - Labs Labs: 09/12/17 06:45 09/12/17 18:00 PT 17.1 SECONDS (9.4-12.5) H 09/05/17 21:45 INR 1.49 (0.93-1.08) H 09/05/17 21:45 APTT 62.4 Seconds (25.1-36.5) H 09/13/17 00:30 - Constitutional Appears: Other (intubated, sedated) - Head Exam Head Exam: NORMAL INSPECTION - ENT Exam Additional comments: ET tube in place - Respiratory Exam Respiratory Exam: Decreased Breath Sounds - Cardiovascular Exam Cardiovascular Exam: +S1, +S2 - GI/Abdominal Exam GI & Abdominal Exam: Soft. absent: Tenderness Assessment and Plan - Assessment and Plan (Free Text) Plan: Assessment severe sepsis S/P shock with VDRF and renal failure due to E. coli bacteremia, consider urine as the source, on top of possible myocardial infarction and possible pneumonia, now also with pulmonary edema, slowly decreasing history of acute cholecystitis, S/P laparoscopic cholecystectomy HTN atrial fibrillation with history of cardioversion rheumatoid arthritis COPD dyslipidemia history of pancreatitis S/P left ACL repair CAD S/P PCI S/P left toe amputation Plan continue Merrem day 5 and Doxycycline (for pneumonia); MRSA nares is negative; urine Legionella Ag is negative; rapid flu test is negative; has been given a dose of IV vanco as well will continue to monitor clinically
--- NOTE | 2017-09-13 13:33 | CP.PCM.PN ---
<Ana Interiano - Last Filed: 09/13/17 13:28> Subjective - Date & Time of Evaluation Date of Evaluation: 09/13/17 Time of Evaluation: 13:28 - Subjective Subjective: Ana Interiano, PGY1, Medicine Progress Note for Dr Barroso: Patient seen and examined at bedside. Pt febrile yesterday with Tmax 100.6F at 5 PM. Still remains sedated on IV drips. Pt is requiring less FiO2 on ventilation, from 100% yesterday to 60% this morning. Does not respond to verbal , painful stimuli (likely from sedation). As per sedation, pt moving extremities when off sedation. ROS unobtainable as pt is intubated and sedated. Objective - Vital Signs/Intake and Output Vital Signs (last 24 hours): Temp Pulse Resp BP Pulse Ox 99.9 F H 112 H 30 H 88/50 L 91 L 09/12/17 19:00 09/13/17 03:59 09/13/17 08:08 09/13/17 03:59 09/13/17 08:08 Intake and Output: 09/13/17 09/13/17 06:59 18:59 Intake Total 692 280 Balance 692 280 - Medications Medications: Current Medications Albuterol/Ipratropium (Duoneb 3 Mg/0.5 Mg (3 Ml) Ud) 3 ml IH Q2H PRN PRN Reason: Shortness of Breath Last Admin: 09/07/17 04:25 Dose: 3 ml Albuterol/Ipratropium (Duoneb 3 Mg/0.5 Mg (3 Ml) Ud) 3 ml IH [id number] [facility] Last Admin: 09/13/17 13:27 Dose: 3 ml Artificial Tears (Artificial Tears Opht Oint) 0 gm OU Q12 [facility] Last Admin: 09/12/17 21:33 Dose: 3.5 gm Aspirin (Aspirin Chewable) 81 mg PO DAILY [facility] Last Admin: 09/13/17 09:07 Dose: 81 mg Atorvastatin Calcium (Lipitor) 40 mg PO DIN [facility] Furosemide (Lasix) 60 mg IVP Q8 [facility] Dobutamine HCl/Dextrose (Dobutamine/Dextrose 5% 500mg/250ml) 500 mg in 250 mls @ 7.327 mls/hr IV .Q24H PRN; Protocol; 2.5 MCG/KG/MIN PRN Reason: TITRATE PER PROTOCOL Last Admin: 09/13/17 03:59 Dose: 5 mcg/kg/min, 14.654 mls/hr Meropenem/Sodium Chloride (Meropenem 1g/Ns 100ml Ivpb) 1 gm in 100 mls @ 100 mls/hr IVPB Q12 [facility] PRN Reason: Protocol Stop: 09/15/17 14:01 Last Admin: 09/13/17 09:06 Dose: 100 mls/hr Propofol (Diprivan) 1,000 mg in 100 mls @ 3.13 mls/hr IV .Q24H PRN; Protocol; 5 MCG/KG/MIN PRN Reason: TITRATE PER MD ORDER Last Titration: 09/13/17 11:57 Dose: 40 mcg/kg/min, 25.038 mls/hr Doxycycline Hyclate 100 mg/ (Sodium Chloride) 100 mls @ 100 mls/hr IVPB Q12 [facility] PRN Reason: Protocol Stop: 09/19/17 22:01 Last Admin: 09/13/17 09:07 Dose: 100 mls/hr Heparin Sodium/Sodium Chloride (Heparin 54586 Units/250ml 1/2 Normal Saline) 25 ,000 units in 250 mls @ 11.485 mls/hr IV .[id number] PRN; Protocol; 12 UNITS/KG/HR PRN Reason: PER MD'S ORDER Last Admin: 09/13/17 08:47 Dose: 17.22 units/kg/hr, 16.481 mls/hr Insulin Human Regular 100 (units/ Sodium Chloride) 100 mls @ 0.5 mls/hr IV .Q24H PRN; Protocol; 0.5 UNITS/HR PRN Reason: TITRATE PER MD ORDER Midodrine (Proamatine) 10 mg PO TID [facility] Last Admin: 09/13/17 09:07 Dose: 10 mg Pantoprazole Sodium (Protonix Inj) 40 mg IVP DAILY [facility] Last Admin: 09/13/17 09:07 Dose: 40 mg Ticagrelor (Brilinta) 90 mg PO BID [facility] Last Admin: 09/12/17 10:29 Dose: 90 mg Vitamin A (Vitamin A & D Oint Ud Foilpak) 1 ea TOP Q8 PRN PRN Reason: Dry skin - Labs Labs: 09/13/17 05:30 09/13/17 05:30 PT 17.1 SECONDS (9.4-12.5) H 09/05/17 21:45 INR 1.49 (0.93-1.08) H 09/05/17 21:45 APTT 63.5 Seconds (25.1-36.5) H 09/13/17 05:30 - Additional Findings Additional findings: - Constitutional Appears: Chronically Ill, remains intubated - Head Exam Head Exam: NORMAL INSPECTION, NORMOCEPHALIC - Eye Exam Eye Exam: Normal appearance. absent: Conjunctival injection, Scleral icterus - ENT Exam Additional comments: ET tube in place - Respiratory Exam Additional comments: Intubated on vent - Cardiovascular Exam Cardiovascular Exam: REGULAR RHYTHM, RRR, +S1, +S2. absent: Murmur - GI/Abdominal Exam GI & Abdominal Exam: Soft, Normal Bowel Sounds. absent: Firm, Guarding, Rigid, Tenderness - Extremities Exam Extremities Exam: Normal Inspection - Neurological Exam Additional comments: sedated - Psychiatric Exam Additional comments: sedated - Skin Skin Exam: Dry, Intact Assessment and Plan - Assessment and Plan (Free Text) Assessment: 67 yr old male with PMH with CAD s/p 15 stents, COPD, rheumatoid arthritis found to be in hypoxic respiratory distress, ARDS, NSTEMI, community acquired pneumonia and septic shock secondary to urosepsis with positive blood cultures. Pt's hyperkalemia has resolved today. Requiring less FiO2 on ventilator: NSTEMI * troponin elevated * Cardiology (Dr. Arias) following, recs appreciated * Unstable for Cardiac cath * Echo: dilated LV, EF 25-30%, hypokinesis of LV, trace AR, mild/mod MR, mild TR, dilated IVC * ASA * heparin drip * Hold brilinta due to anemia, per Cardio * holding Beta blockers 2/2 hypotension * holding crestor 2/2 rhabdo and elevated LFTs Respiratory failure * pneumonia vs acute decompensated CHF vs. history of COPD * intubated and sedated on propofol * on dobutamine drip, midodrine * CT chest: New alveolar and interstitial infiltrates are seen in both lower lobes as well as the right upper lobe. This is superimposed upon chronic emphysematous changes * ABG showing respiratory alkalosis * negative for MRSA * flu negative * legionella negative * duonebs [facility] and PRN * solumedrol 50 mg IV Q12 * lasix 60 IV q 8h * doxycycline, meropenem Hyperkalemia: - resolved - Cont to monitor EMMA * Lasix prn * will monitor * nephro on board. appreciate recs UTI * Repeat blood and urine prelim negative * UA showing elevated leuk esterase and nitrate * blood cultures showing E. coli * urine culture showing E. coli * abx as above * repeat cultured and repeat procalcitonin in light of spiking temps E. coli bacteremia * repeat culture and repeat procalcitonin in light of spiking temps * leukoctosis 11.8 * Procalcitonin trending down 14.38 * blood and urine cultures positive for E. coli * Repeat blood and urine prelim negative * Sputum: + yeast * ID consulted, recs appreciated * abx as above Left inguinal hernia * CT abd/pel:There is a 5 cm diameter left inguinal hernia that contains a portion of the sigmoid colon. There is no obstruction * not causing problems at this time Hypotension * dobutamine gtt, and midodrine * Maintain MAP above 65 * holding beta adali for now Immunocompromised 2/2 RA * Bactrim for PCP ppx discontinued due to renal impairment PPX * GI protonix * DVT heparin drip Discussed with Dr. Barroso. <Gracia Barroso - Last Filed: 09/15/17 12:24> Objective - Vital Signs/Intake and Output Vital Signs (last 24 hours): Temp Pulse Resp BP Pulse Ox 99 F 99 H 32 H 130/72 96 09/15/17 04:00 09/15/17 05:49 09/15/17 08:41 09/15/17 09:46 09/15/17 08:41 Intake and Output: 09/15/17 09/15/17 06:59 18:59 Intake Total 2980 545.0 Output Total 1700 Balance 1280 545.0 - Medications Medications: Current Medications Albuterol/Ipratropium (Duoneb 3 Mg/0.5 Mg (3 Ml) Ud) 3 ml IH Q2H PRN PRN Reason: Shortness of Breath Last Admin: 09/07/17 04:25 Dose: 3 ml Albuterol/Ipratropium (Duoneb 3 Mg/0.5 Mg (3 Ml) Ud) 3 ml IH [id number] [facility] Last Admin: 09/15/17 08:35 Dose: 3 ml Artificial Tears (Artificial Tears Opht Oint) 0 gm OU Q12 [facility] Last Admin: 09/15/17 09:53 Dose: 1 gm Aspirin (Aspirin Chewable) 81 mg PO DAILY [facility] Last Admin: 09/15/17 09:52 Dose: 81 mg Atorvastatin Calcium (Lipitor) 40 mg PO DIN [facility] Last Admin: 09/14/17 18:43 Dose: 40 mg Calcium Acetate (Phoslo) 1,334 mg PO WM [facility] Last Admin: 09/15/17 08:18 Dose: 1,334 mg Enoxaparin Sodium (Lovenox) 100 mg SC Q24H [facility] PRN Reason: Protocol Last Admin: 09/15/17 09:46 Dose: 100 mg Furosemide (Lasix) 40 mg IVP DAILY [facility] Last Admin: 09/15/17 09:46 Dose: 40 mg Dobutamine HCl/Dextrose (Dobutamine/Dextrose 5% 500mg/250ml) 500 mg in 250 mls @ 7.327 mls/hr IV .Q24H PRN; Protocol; 2.5 MCG/KG/MIN PRN Reason: TITRATE PER PROTOCOL Last Admin: 09/15/17 10:59 Dose: 5 mcg/kg/min, 14.654 mls/hr Meropenem/Sodium Chloride (Meropenem 1g/Ns 100ml Ivpb) 1 gm in 100 mls @ 100 mls/hr IVPB Q12 [facility] PRN Reason: Protocol Stop: 09/15/17 14:01 Last Admin: 09/15/17 09:47 Dose: 100 mls/hr Insulin Human Regular 100 (units/ Sodium Chloride) 100 mls @ 0.5 mls/hr IV .Q24H PRN; Protocol; 0.5 UNITS/HR PRN Reason: TITRATE PER MD ORDER Last Titration: 09/15/17 10:00 Dose: 2 units/hr, 2 mls/hr Dexmedetomidine HCl (Precedex 4 Mcg/Ml (100 Ml)) 400 mcg in 100 mls @ 4.853 mls /hr IV .[id number] PRN; Protocol; 0.2 MCG/KG/HR PRN Reason: Agitation Last Admin: 09/15/17 07:47 Dose: 0.2 mcg/kg/hr, 4.853 mls/hr Linezolid (Zyvox 600mg/300ml D5w) 600 mg in 300 mls @ 200 mls/hr IVPB Q12 [facility] PRN Reason: Protocol Stop: 09/21/17 10:01 Last Admin: 09/15/17 09:51 Dose: 200 mls/hr Propofol (Diprivan) 1,000 mg in 100 mls @ 2.912 mls/hr IV .Q24H PRN; Protocol; 5 MCG/KG/MIN PRN Reason: TITRATE PER MD ORDER Last Admin: 09/15/17 08:52 Dose: 40 mcg/kg/min, 23.297 mls/hr Dextrose (Dextrose 5% In Water 1000 Ml) 1,000 mls @ 60 mls/hr IV .[id number] [facility] Last Admin: 09/14/17 19:00 Dose: 60 mls/hr Micafungin Sodium 100 mg/ (Dextrose) 100 mls @ 100 mls/hr IV DAILY [facility] PRN Reason: Protocol Stop: 09/22/17 10:01 Doxycycline Hyclate 100 mg/ (Dextrose) 100 mls @ 100 mls/hr IVPB Q12 [facility] PRN Reason: Protocol Stop: 09/19/17 22:01 Midodrine (Proamatine) 10 mg PO TID [facility] Last Admin: 09/14/17 18:44 Dose: 10 mg Nicotine (Nicoderm Cq) 1 patch TD DAILY [facility] Pantoprazole Sodium (Protonix Inj) 40 mg IVP BID [facility] Last Admin: 09/15/17 09:51 Dose: 40 mg Ticagrelor (Brilinta) 90 mg PO BID [facility] Last Admin: 09/12/17 10:29 Dose: 90 mg Vitamin A (Vitamin A & D Oint Ud Foilpak) 1 ea TOP Q8 PRN PRN Reason: Dry skin - Labs Labs: 09/15/17 05:00 09/15/17 05:00 PT 15.3 SECONDS (9.4-12.5) H 09/14/17 16:20 INR 1.33 (0.93-1.08) H 09/14/17 16:20 APTT 45.1 Seconds (25.1-36.5) H 09/15/17 08:15 Attending/Attestation - Attestation I have personally seen and examined this patient.: Yes I have fully participated in the care of the patient.: Yes I have reviewed all pertinent clinical information, including history, physical exam and plan: Yes Notes (Text): 09/15/17 12:20 Patient was seen and examined with medical assistant dermatology. Agreed with resident assessment and plan. 67 yrs old male with PMHx of CAD,SP Multiple cardiac stents,CHF with systolic dysfunction. Rheumatoid arthiristis and HTN was admitted with , NSTEMI, and gram negative bacteremia, subsequently went into respiratory failure, ARDS, septic/cardiogenic shock, requiring vasopressors Patient is intubated, sedated, off Levophed on Dobutamine. Patient is hypoxic requiring high FIO2 .Chest X rays showed bilateral alevaolar infiltrates likely combination of PNA with Pulmonary edema .Hypoxia is relatively better, now on FIO 2 of 60% Sepsis on IV antibiotics as per ID for Pneumonia and Ecoli Bacteremia.Repeat blood cultures are negative. Renal failure, Creatinin is unchanged, had good urine out put, we will monitor BUN and creatinin with diuresis. Hypernatremic, on free water v Hyperkalemia ,resolved. Management plan was discussed with family. Prognosis is guarded.
--- NOTE | 2017-09-13 14:26 | CP.PCM.PN ---
Subjective - Date & Time of Evaluation Date of Evaluation: 09/13/17 Time of Evaluation: 14:23 - Subjective Subjective: Follow up Nephrology Consultation: please call us if any qs or concerns at Assessment: critical Acute Kidney Injury (N17.9) sec to ATN from sepsis syndrome/cardiogenic shock hyperkalemia hypernatremia azotemia combined respi and metabolic acidosis with lactic acidosis with acute hypoxic hypercapneic respi failure acute CHF with cardiogenic shock with acute HI Urosepsis DM, HTN, CAD s/p stent, COPD with emphysema and active smoker Plan non oliguric denisse, monitor I&Os azotemia sec to steroids and Tube feeds, monitor for now agree with lasix for diuresis hyperkalemia is improved TF: discuss with oil pumper for renal Tube feeds hypernatremia: cotninue free water per tube, salt free water has minimal effect on volume overload. d/w primary icu team. S: seen and examined remains critically ill on vent Physical Examination: General Appearance: ill appearing, orally intubated Head; Atraumatic, normocephalic ENT: orally intubated EYES: Sclera is anicteric. Neck; supple no lymphadenopathy, no thyromegaly or bruit Lungs: Increased respiratory rate/effort. mechanical bs and dec at bases Heart: Increased rate. s1s2 normal. No rub or gallop. Extremities: no edema. No varicose veins Neurological: Patient is sedated Skin: Warm and dry Abdomen: Abdomen is soft. Bowel sounds +. Psych: unable MSK: no joint tenderness or swelling Objective - Vital Signs/Intake and Output Vital Signs (last 24 hours): Temp Pulse Resp BP Pulse Ox 99.9 F H 112 H 30 H 88/50 L 91 L 09/12/17 19:00 09/13/17 03:59 09/13/17 08:08 09/13/17 03:59 09/13/17 08:08 Intake and Output: 09/13/17 09/13/17 06:59 18:59 Intake Total 692 280 Balance 692 280 - Medications Medications: Current Medications Albuterol/Ipratropium (Duoneb 3 Mg/0.5 Mg (3 Ml) Ud) 3 ml IH Q2H PRN PRN Reason: Shortness of Breath Last Admin: 09/07/17 04:25 Dose: 3 ml Albuterol/Ipratropium (Duoneb 3 Mg/0.5 Mg (3 Ml) Ud) 3 ml IH [id number] [facility] Last Admin: 09/13/17 13:27 Dose: 3 ml Artificial Tears (Artificial Tears Opht Oint) 0 gm OU Q12 [facility] Last Admin: 09/12/17 21:33 Dose: 3.5 gm Aspirin (Aspirin Chewable) 81 mg PO DAILY [facility] Last Admin: 09/13/17 09:07 Dose: 81 mg Atorvastatin Calcium (Lipitor) 40 mg PO DIN [facility] Furosemide (Lasix) 60 mg IVP Q8 [facility] Dobutamine HCl/Dextrose (Dobutamine/Dextrose 5% 500mg/250ml) 500 mg in 250 mls @ 7.327 mls/hr IV .Q24H PRN; Protocol; 2.5 MCG/KG/MIN PRN Reason: TITRATE PER PROTOCOL Last Admin: 09/13/17 03:59 Dose: 5 mcg/kg/min, 14.654 mls/hr Meropenem/Sodium Chloride (Meropenem 1g/Ns 100ml Ivpb) 1 gm in 100 mls @ 100 mls/hr IVPB Q12 [facility] PRN Reason: Protocol Stop: 09/15/17 14:01 Last Admin: 09/13/17 09:06 Dose: 100 mls/hr Propofol (Diprivan) 1,000 mg in 100 mls @ 3.13 mls/hr IV .Q24H PRN; Protocol; 5 MCG/KG/MIN PRN Reason: TITRATE PER MD ORDER Last Titration: 09/13/17 11:57 Dose: 40 mcg/kg/min, 25.038 mls/hr Doxycycline Hyclate 100 mg/ (Sodium Chloride) 100 mls @ 100 mls/hr IVPB Q12 [facility] PRN Reason: Protocol Stop: 09/19/17 22:01 Last Admin: 09/13/17 09:07 Dose: 100 mls/hr Heparin Sodium/Sodium Chloride (Heparin 66732 Units/250ml 1/2 Normal Saline) 25 ,000 units in 250 mls @ 11.485 mls/hr IV .[id number] PRN; Protocol; 12 UNITS/KG/HR PRN Reason: PER MD'S ORDER Last Admin: 09/13/17 08:47 Dose: 17.22 units/kg/hr, 16.481 mls/hr Insulin Human Regular 100 (units/ Sodium Chloride) 100 mls @ 0.5 mls/hr IV .Q24H PRN; Protocol; 0.5 UNITS/HR PRN Reason: TITRATE PER MD ORDER Midodrine (Proamatine) 10 mg PO TID [facility] Last Admin: 09/13/17 09:07 Dose: 10 mg Pantoprazole Sodium (Protonix Inj) 40 mg IVP DAILY [facility] Last Admin: 09/13/17 09:07 Dose: 40 mg Ticagrelor (Brilinta) 90 mg PO BID [facility] Last Admin: 09/12/17 10:29 Dose: 90 mg Vitamin A (Vitamin A & D Oint Ud Foilpak) 1 ea TOP Q8 PRN PRN Reason: Dry skin - Labs Labs: 09/13/17 05:30 09/13/17 05:30 PT 17.1 SECONDS (9.4-12.5) H 09/05/17 21:45 INR 1.49 (0.93-1.08) H 09/05/17 21:45 APTT 63.5 Seconds (25.1-36.5) H 09/13/17 05:30
--- NOTE | 2017-09-13 15:54 | PN ---
DATE: 09/13/2017 REASON FOR CONSULTATION AND FOLLOWUP: Cardiac evaluation, [id number] myocardial infarction, Gram-negative sepsis, septic shock, intubated, respiratory failure, hypotension, multiorgan dysfunction requiring vasopressors. SUBJECTIVE: Still being remained intubated on Dobutrex, heparin, insulin drip as well as sedated, on vent. PHYSICAL EXAMINATION: VITAL SIGNS: Temperature 100, low-grade fever; heart rate 107; blood pressure 114/66. HEENT: PERRLA. Extraocular muscles intact. NECK: Supple. No carotid bruits or thyromegaly. CHEST: Clear to auscultation. HEART: S1, S2, regular. ABDOMEN: Soft. EXTREMITIES: Clubbing and cyanosis negative. LABORATORY DATA: Blood workup as follows: WBC 13.7, hemoglobin , hematocrit 28.4, platelet count 195. Chemistry showed sodium 151, potassium 4.7, chloride 111, carbon dioxide 27, anion gap of 18, BUN , creatinine 2.2, magnesium 2.7. IMPRESSION: Acute kidney injury, creatinine clearance 30 mL an hour, hypernatremia, protein-calorie malnutrition, which was not admission on admission, anemia, Gram-negative sepsis, leukocytosis, pneumonia, urinary tract infection, rheumatoid arthritis, immunocompromised, coronary artery disease, [id number] myocardial infarction, rhabdomyolysis, respiratory failure requiring high oxygen. Last blood gas shows pCO2 of 47, pO2 of 92. RECOMMENDATIONS: Monitor I's and O's, gentle diuretics p.r.n., keep negative fluid balance for increased oxygen, increase free fluid through the NG tube, increased to 450 because of hypernatremia, continue heparin, continue low-dose , continue insulin drip. Wean off the vent as tolerated. Continue sedation vent is required, Brilinta discontinued. Further recommendations per hospital course. We will follow with you. Prolonged intubation is expected. Consider tracheostomy. We will increase free fluid to 400 mL q. 6. Thank you, Dr. Poole, for providing us the opportunity in taking care of the patient, Blanco Russell. We will give Kayexalate 15 g for hyperkalemia if today is 4.7. Gracia Arias MD [facility] # [id number]
[2017-09-13] MEDS: Insulin Regular 100 UNITS in Sodium Chloride 0.9% 99 ML IV PRN (19:00)
[2017-09-14] MEDS: Albuterol-Ipratrop 3 mg / 0.5 (3 ml) UD IH SCH ×4 (01:31→20:36)
[2017-09-14] MEDS: Heparin25000 units/250ml 1/2NS 25,000 UNITS/250 ML BAG IV PRN ×2 (01:37→20:14)
[2017-09-14] MEDS: Propofol 10 mg/ml 1,000 MG/100 ML VIAL IV PRN ×3 (02:04→22:55)
[2017-09-14 05:33] LABS: ARTERIAL BLOOD GAS HCO3 29.9 mmol/L (21-28); ARTERIAL BLOOD GAS HEMOGLOBIN 9.6 g/dL (11.7-17.4); ARTERIAL BLOOD GAS O2 CAPACITY 13.1 mL/dl (16-24); ARTERIAL BLOOD GAS O2 CONTENT 12.8 ML/dl (15-23); ARTERIAL BLOOD GAS O2 SAT 97.6 % (95-98); ARTERIAL BLOOD GAS PCO2 58 mm/Hg (35-45); ARTERIAL BLOOD GAS PH 7.32 (7.35-7.45); ARTERIAL BLOOD GAS TCO2 31.7 mmol.L (22-28)
[2017-09-14 06:34] LABS: HEMOGLOBIN 8.2 g/dL (14.0-18.0); MEAN CELL VOLUME 97.4 fl (80.0-105.0); MEAN CORPUSCULAR HGB CONC 30.8 g/dl (31.0-37.0); MEAN PLATELET VOLUME 11.4 fl (7.0-11.0); RBC 2.73 10^6/uL (3.5-6.1); WHITE BLOOD COUNT 17.1 10^3/ul (4.5-11.0)
[2017-09-14 07:22] LABS: CALCIUM 8.6 mg/dL (8.4-10.5); MAGNESIUM 2.6 mg/dL (1.7-2.2)
[2017-09-14] MEDS ORDERED: Micafungin 100 MG in Sodium Chloride 0.9% 100 ML IV ONE (07:45)
[2017-09-14] MEDS: Dexmedetomidine 400mcg/100mL 400 MCG/100 ML BOTTLE IV PRN ×5 (08:33→20:31)
--- NOTE | 2017-09-14 10:08 | RAD ---
HISTORY: intubated, pulm edema COMPARISON: 09/13/2017 FINDINGS: LUNGS: No change in pulmonary edema. PLEURA: No significant pleural effusion identified, no pneumothorax apparent. CARDIOVASCULAR: Normal. OSSEOUS STRUCTURES: No significant abnormalities. VISUALIZED UPPER ABDOMEN: Normal. OTHER FINDINGS: Endotracheal and nasogastric tube in satisfactory position IMPRESSION: No change in pulmonary edema
[2017-09-14] MEDS ORDERED: Vancomycin 1gm in NS 250ml 1 GM/250 ML BAG IVPB STA (10:13)
--- NOTE | 2017-09-14 10:15 | CP.PCM.PN ---
Subjective - Date & Time of Evaluation Date of Evaluation: 09/14/17 Time of Evaluation: 09:50 - Subjective Subjective: Continues to be on the ventilator, has low grade fevers overnight, still needing 60% FiO2 and still on high PEEP. Objective - Vital Signs/Intake and Output Vital Signs (last 24 hours): Temp Pulse Resp BP Pulse Ox 99.8 F H 120 H 30 H 131/73 95 09/14/17 04:00 09/14/17 06:50 09/13/17 08:08 09/14/17 06:46 09/14/17 06:50 Intake and Output: 09/14/17 09/14/17 06:59 18:59 Intake Total 1978 Output Total 1200 Balance 778 - Medications Medications: Current Medications Albuterol/Ipratropium (Duoneb 3 Mg/0.5 Mg (3 Ml) Ud) 3 ml IH Q2H PRN PRN Reason: Shortness of Breath Last Admin: 09/07/17 04:25 Dose: 3 ml Albuterol/Ipratropium (Duoneb 3 Mg/0.5 Mg (3 Ml) Ud) 3 ml IH [id number] [facility] Last Admin: 09/14/17 08:07 Dose: 3 ml Artificial Tears (Artificial Tears Opht Oint) 0 gm OU Q12 [facility] Last Admin: 09/13/17 22:00 Dose: 1 gm Aspirin (Aspirin Chewable) 81 mg PO DAILY [facility] Last Admin: 09/13/17 09:07 Dose: 81 mg Atorvastatin Calcium (Lipitor) 40 mg PO DIN [facility] Last Admin: 09/13/17 16:32 Dose: 40 mg Furosemide (Lasix) 40 mg IVP DAILY [facility] Dobutamine HCl/Dextrose (Dobutamine/Dextrose 5% 500mg/250ml) 500 mg in 250 mls @ 7.327 mls/hr IV .Q24H PRN; Protocol; 2.5 MCG/KG/MIN PRN Reason: TITRATE PER PROTOCOL Last Admin: 09/13/17 23:18 Dose: 5 mcg/kg/min, 14.654 mls/hr Meropenem/Sodium Chloride (Meropenem 1g/Ns 100ml Ivpb) 1 gm in 100 mls @ 100 mls/hr IVPB Q12 [facility] PRN Reason: Protocol Stop: 09/15/17 14:01 Last Admin: 09/13/17 22:33 Dose: 100 mls/hr Propofol (Diprivan) 1,000 mg in 100 mls @ 3.13 mls/hr IV .Q24H PRN; Protocol; 5 MCG/KG/MIN PRN Reason: TITRATE PER MD ORDER Last Admin: 09/14/17 06:07 Dose: 40 mcg/kg/min, 25.038 mls/hr Doxycycline Hyclate 100 mg/ (Sodium Chloride) 100 mls @ 100 mls/hr IVPB Q12 [facility] PRN Reason: Protocol Stop: 09/19/17 22:01 Last Admin: 09/13/17 22:31 Dose: 100 mls/hr Heparin Sodium/Sodium Chloride (Heparin 19746 Units/250ml 1/2 Normal Saline) 25 ,000 units in 250 mls @ 11.485 mls/hr IV .[id number] PRN; Protocol; 12 UNITS/KG/HR PRN Reason: PER MD'S ORDER Last Admin: 09/14/17 01:37 Dose: 17.22 units/kg/hr, 16.481 mls/hr Insulin Human Regular 100 (units/ Sodium Chloride) 100 mls @ 0.5 mls/hr IV .Q24H PRN; Protocol; 0.5 UNITS/HR PRN Reason: TITRATE PER MD ORDER Last Titration: 09/14/17 03:00 Dose: 3 units/hr, 3 mls/hr Micafungin Sodium 100 mg/ (Sodium Chloride) 100 mls @ 100 mls/hr IV ONCE ONE Stop: 09/14/17 08:44 Last Admin: 09/14/17 08:25 Dose: 100 mls/hr Dexmedetomidine HCl (Precedex 4 Mcg/Ml (100 Ml)) 400 mcg in 100 mls @ 4.853 mls /hr IV .[id number] PRN; Protocol; 0.2 MCG/KG/HR PRN Reason: Agitation Last Admin: 09/14/17 08:33 Dose: 0.2 mcg/kg/hr, 4.853 mls/hr Midodrine (Proamatine) 10 mg PO TID [facility] Last Admin: 09/13/17 18:11 Dose: 10 mg Pantoprazole Sodium (Protonix Inj) 40 mg IVP DAILY [facility] Last Admin: 09/13/17 09:07 Dose: 40 mg Ticagrelor (Brilinta) 90 mg PO BID [facility] Last Admin: 09/12/17 10:29 Dose: 90 mg Vitamin A (Vitamin A & D Oint Ud Foilpak) 1 ea TOP Q8 PRN PRN Reason: Dry skin - Labs Labs: 09/14/17 06:10 09/14/17 06:10 PT 17.1 SECONDS (9.4-12.5) H 09/05/17 21:45 INR 1.49 (0.93-1.08) H 09/05/17 21:45 APTT 69.7 Seconds (25.1-36.5) H 09/14/17 06:10 - Constitutional Appears: Other (intubated, sedated) - ENT Exam Additional comments: ET tube in place - Respiratory Exam Respiratory Exam: Decreased Breath Sounds - Cardiovascular Exam Cardiovascular Exam: +S1, +S2 - GI/Abdominal Exam GI & Abdominal Exam: Soft. absent: Tenderness - Extremities Exam Additional comments: right arm arterial line in place, left arm PICC in place Assessment and Plan - Assessment and Plan (Free Text) Plan: Assessment severe sepsis S/P shock with VDRF and renal failure due to E. coli bacteremia, consider urine as the source, on top of possible myocardial infarction and possible pneumonia, now also with pulmonary edema, slowly decreasing - new onset fever R/O line-related bacteremia, R/O worsening pneumonia history of acute cholecystitis, S/P laparoscopic cholecystectomy HTN atrial fibrillation with history of cardioversion rheumatoid arthritis COPD dyslipidemia history of pancreatitis S/P left ACL repair CAD S/P PCI S/P left toe amputation Plan continue Merrem day 5 and Doxycycline (for pneumonia); MRSA nares is negative; urine Legionella Ag is negative; rapid flu test is negative; will give a dose of IV vanco as well and start Zyvox and patient has been started on Mycamine - will repeat blood cx from the central line, follow up Fungitell and Galactomannan tests, get sputum cx will continue to monitor clinically
--- NOTE | 2017-09-14 10:21 | CP.PCM.PN ---
Subjective - Date & Time of Evaluation Date of Evaluation: 09/14/17 Time of Evaluation: 10:17 - Subjective Subjective: Follow up Nephrology Consultation: please call us if any qs or concerns at [phone] Assessment: critical Acute Kidney Injury (N17.9) sec to ATN from sepsis syndrome/cardiogenic shock hyperkalemia hypernatremia azotemia combined respi and metabolic acidosis with lactic acidosis with acute hypoxic hypercapneic respi failure acute CHF with cardiogenic shock with acute IA Urosepsis DM, HTN, CAD s/p stent, COPD with emphysema and active smoker Plan Azotemia continues to worsen - t'fs were held this am, last dose of IV steroids yesterday. Na still up Continue free water flush. Recc check na again this afternoon - if na not improving start d5w at 60 cc/hr. Cr is mildly improved k is stable lasix already given this am, none is ordered for rest of the day would consider holding completely for 24-48 hours will start d/w primary icu team. S: seen and examined remains critically ill on vent Physical Examination: General Appearance: ill appearing, orally intubated Head; Atraumatic, normocephalic ENT: orally intubated EYES: Sclera is anicteric. Neck; supple no lymphadenopathy, no thyromegaly or bruit Lungs: Increased respiratory rate/effort. mechanical bs and dec at bases Heart: Increased rate. s1s2 normal. No rub or gallop. Extremities: no edema. No varicose veins Neurological: Patient is sedated Skin: Warm and dry Abdomen: Abdomen is soft. Bowel sounds +. Psych: unable MSK: no joint tenderness or swelling Objective - Vital Signs/Intake and Output Vital Signs (last 24 hours): Temp Pulse Resp BP Pulse Ox 99.8 F H 120 H 39 H 131/73 95 09/14/17 04:00 09/14/17 06:50 09/14/17 08:07 09/14/17 06:46 09/14/17 08:07 Intake and Output: 09/14/17 09/14/17 06:59 18:59 Intake Total 1978 Output Total 1200 Balance 778 - Medications Medications: Current Medications Albuterol/Ipratropium (Duoneb 3 Mg/0.5 Mg (3 Ml) Ud) 3 ml IH Q2H PRN PRN Reason: Shortness of Breath Last Admin: 09/07/17 04:25 Dose: 3 ml Albuterol/Ipratropium (Duoneb 3 Mg/0.5 Mg (3 Ml) Ud) 3 ml IH [id number] [facility] Last Admin: 09/14/17 08:07 Dose: 3 ml Artificial Tears (Artificial Tears Opht Oint) 0 gm OU Q12 [facility] Last Admin: 09/13/17 22:00 Dose: 1 gm Aspirin (Aspirin Chewable) 81 mg PO DAILY [facility] Last Admin: 09/13/17 09:07 Dose: 81 mg Atorvastatin Calcium (Lipitor) 40 mg PO DIN [facility] Last Admin: 09/13/17 16:32 Dose: 40 mg Furosemide (Lasix) 40 mg IVP DAILY [facility] Dobutamine HCl/Dextrose (Dobutamine/Dextrose 5% 500mg/250ml) 500 mg in 250 mls @ 7.327 mls/hr IV .Q24H PRN; Protocol; 2.5 MCG/KG/MIN PRN Reason: TITRATE PER PROTOCOL Last Admin: 09/13/17 23:18 Dose: 5 mcg/kg/min, 14.654 mls/hr Meropenem/Sodium Chloride (Meropenem 1g/Ns 100ml Ivpb) 1 gm in 100 mls @ 100 mls/hr IVPB Q12 [facility] PRN Reason: Protocol Stop: 09/15/17 14:01 Last Admin: 09/13/17 22:33 Dose: 100 mls/hr Propofol (Diprivan) 1,000 mg in 100 mls @ 3.13 mls/hr IV .Q24H PRN; Protocol; 5 MCG/KG/MIN PRN Reason: TITRATE PER MD ORDER Last Admin: 09/14/17 06:07 Dose: 40 mcg/kg/min, 25.038 mls/hr Doxycycline Hyclate 100 mg/ (Sodium Chloride) 100 mls @ 100 mls/hr IVPB Q12 [facility] PRN Reason: Protocol Stop: 09/19/17 22:01 Last Admin: 09/13/17 22:31 Dose: 100 mls/hr Heparin Sodium/Sodium Chloride (Heparin 31913 Units/250ml 1/2 Normal Saline) 25 ,000 units in 250 mls @ 11.485 mls/hr IV .[id number] PRN; Protocol; 12 UNITS/KG/HR PRN Reason: PER MD'S ORDER Last Admin: 09/14/17 01:37 Dose: 17.22 units/kg/hr, 16.481 mls/hr Insulin Human Regular 100 (units/ Sodium Chloride) 100 mls @ 0.5 mls/hr IV .Q24H PRN; Protocol; 0.5 UNITS/HR PRN Reason: TITRATE PER MD ORDER Last Titration: 09/14/17 03:00 Dose: 3 units/hr, 3 mls/hr Dexmedetomidine HCl (Precedex 4 Mcg/Ml (100 Ml)) 400 mcg in 100 mls @ 4.853 mls /hr IV .[id number] PRN; Protocol; 0.2 MCG/KG/HR PRN Reason: Agitation Last Admin: 09/14/17 08:33 Dose: 0.2 mcg/kg/hr, 4.853 mls/hr Linezolid (Zyvox 600mg/300ml D5w) 600 mg in 300 mls @ 200 mls/hr IVPB Q12 [facility] PRN Reason: Protocol Stop: 09/21/17 10:01 Vancomycin HCl (Vancomycin 1gm) 1 gm in 250 mls @ 167 mls/hr IVPB STAT STA PRN Reason: Protocol Stop: 09/14/17 11:42 Midodrine (Proamatine) 10 mg PO TID [facility] Last Admin: 09/13/17 18:11 Dose: 10 mg Pantoprazole Sodium (Protonix Inj) 40 mg IVP DAILY [facility] Last Admin: 09/13/17 09:07 Dose: 40 mg Ticagrelor (Brilinta) 90 mg PO BID [facility] Last Admin: 09/12/17 10:29 Dose: 90 mg Vitamin A (Vitamin A & D Oint Ud Foilpak) 1 ea TOP Q8 PRN PRN Reason: Dry skin - Labs Labs: 09/14/17 06:10 09/14/17 06:10 PT 17.1 SECONDS (9.4-12.5) H 09/05/17 21:45 INR 1.49 (0.93-1.08) H 09/05/17 21:45 APTT 69.7 Seconds (25.1-36.5) H 09/14/17 06:10
[2017-09-14] MEDS: Meropenem 1g/NS 100mL IVPB 1 GM/100 ML PIGGYBACK IVPB SCH ×2 (10:41→21:28)
[2017-09-14] MEDS: Linezolid 600 mg in D5W 300 ml 600 MG/300 ML BAG IVPB SCH ×2 (10:42→21:28)
[2017-09-14] MEDS: Mineral Oil/Petrolatum Opht Oint(3.5 gm) OU SCH ×2 (10:55→23:00)
[2017-09-14 11:15] LABS: ARTERIAL BLOOD GAS HCO3 29.2 mmol/L (21-28); ARTERIAL BLOOD GAS HEMOGLOBIN 7.9 g/dL (11.7-17.4); ARTERIAL BLOOD GAS O2 CAPACITY 10.9 mL/dl (16-24); ARTERIAL BLOOD GAS O2 CONTENT 10.7 ML/dl (15-23); ARTERIAL BLOOD GAS O2 SAT 98.3 % (95-98); ARTERIAL BLOOD GAS PCO2 46 mm/Hg (35-45); ARTERIAL BLOOD GAS PH 7.41 (7.35-7.45); ARTERIAL BLOOD GAS TCO2 30.6 mmol.L (22-28)
[2017-09-14 12:38] LABS: BLOOD UREA NITROGEN > 120 mg/dL (7-21); CALCIUM 8.3 mg/dL (8.4-10.5); GFR AFRICAN-AMERICAN 46; GFR NON-AFRICAN AMERICAN 38
--- NOTE | 2017-09-14 13:31 | PN ---
DATE: 09/14/2017 SUBJECTIVE: The patient is seen and examined at bedside. He is on PRVC 400/28/12/60%. On that setting, his end-tidal CO2 is 40, heart rate is 117, oxygen saturation 95%, blood pressure 110/64. Propofol drip was just stopped for daily sedation vacation. The patient was tolerating enteral feeds well; however, it was held due to elevation of BUN. Free water flushes increased to 400 every 3 hours (Lasix dose decreased). The patient is on dobutamine 5 mcg/kg per minute, heparin, insulin drip. Accu-Chek will be continued for every 1 hour and insulin drip will be held if BG start to wander to lower territory. The patient has low-grade fever~100; however, he is on cooling blanket. PHYSICAL EXAMINATION: HEENT: Head and neck atraumatic. LUNGS: Decreased breath sounds bilaterally. HEART: Regular rate and rhythm. S1, S2 distant. ABDOMEN: Soft, nontender and nondistended. MUSCULOSKELETAL: Trace bilateral pedal and ankle edema. NEURO: The patient was observed moving all extremities spontaneously. SKIN: Moist. PSYCH: The patient is still under residual effect of sedation. LABORATORY DATA: WBC 17.1 (jumped from 15.7; mycofungin was ordered as patient has sputum positive for yeast as well), hemoglobin 8.2, platelet count 208. Sodium 155 (free water flushes increased to 400 mL every 3 hours), potassium 4.4, chloride 113, carbon dioxide 29, BUN 130 (feeds were stopped, free water flushes increased, Lasix dose decreased from 60 mg IV q.8 to 40 mg IV q.12), glucose 215 (the patient is on insulin drip), AST 42, ALT 63, total bilirubin 0.6. INR 69.7. ABG today is 7.32/58/78 on 60% FiO2. Influenza negative. Urine for Legionella and streptococcal antigens are negative. Procalcitonin went down to 4.89 from 14.38 as of yesterday. MEDICATIONS: DuoNeb every 6 hours, aspirin, Lipitor, dobutamine, doxycycline, Lasix 40 mg IV daily, heparin drip, regular insulin drip. Meropenem, micafungin 100 mg, and Brilinta. Chest x-ray showed some improvement in right lower lobe infiltrate. ASSESSMENT AND PLAN: This is a 67-year-old gentleman with hypoxemic respiratory failure secondary to cardiogenic and noncardiogenic pulmonary edema in the setting of cardiogenic and distributive shock, now substantially improved. 1. Neurology: Sedation was stopped for daily sedation vacation. We will assess his level of wakefulness. The patient is moving all extremities spontaneously. If will not wake up soon, we will proceed with EEG to rule out nonconvulsive status. 2. Pulmonary: We will continue with protective lung ventilation strategy including 6 mL per predicted body weight tidal volume as well as maintain plateau pressure less than 30. The patient was switched from volume control to PRVC. PEEP was weaned down from 14 to 12. FiO2 of 60%. We will continue with conservative fluid and oxygen management. Maintaining conservative fluid management may be a little bit challenging in light of substantial rising of BUN (which may necessitate holding Lasix). The patient had positive sputum for yeast and spike in leukocytosis as well as low-grade fever. The patient is on broad-spectrum antibiotics and Infectious Disease service is following him. However, I will add mycofungin and order one 3-D-Glucan and galactomannan. We will continue with head of bed elevated at 135 degrees, oral hygiene, VAP bundle. 3. Cardiovascular: The patient is on dobutamine 5 mcg/kg/minute. He does have severe left ventricular systolic dysfunction. He diuresed pretty well over the last couple of days and his chest x-ray appears to improve. We will continue with dobutamine for ionotropic support. We will continue with Lasix for preload reduction. If hemodynamics allows, we will consider hydralazine/isosorbide dinitrate for afterload reduction as well. Cardiology Service is following the patient as well. Timing of proceeding with coronary angiography will be deferred to Cardiology Service. The patient is on aspirin, Brilinta and heparin drips as well as statins. 4. Gastrointestinal: The patient tolerated feeding well. In attempt to contain the patient's rise in BUN, we will stop feeding at present time. We will continue with gastrointestinal prophylaxis. 5. Infectious Disease: The patient had gram-negative bacteremia resolved. He continued to be on meropenem and doxycycline. In light of combination of leukocytosis, low-grade fever and sputum positive for yeast, I will start empirically micafungin, pending Infectious Disease followup. I will order one 3-Y-ukou-Glucan as well as galactomannan. ID also started zyvox and gave one dose of vanco. 6. Endocrine: As we stopped feeds, we will monitor blood glucose every 1 hour and we will consider stopping insulin drip if blood glucose start getting closer to 180. We will maintain blood glucose within 140-180 range according to NICE-SUGAR trial. 7. Renal: The patient makes very good urine, even though remains positive fluid balance pickard. Last night, he made 1200 mL of urine. Unfortunately, BUN rises substantially up to 130. We will touch base with renal service about this. Meanwhile, we will increase free water flushes, stop feeds and decrease dose of Lasix. We will continue to maintain mean arterial pressure more than 65 and continue with euvolemia, euglycemia for additional nephro-protective effect. We will try to avoid nephrotoxic medication, but not at expense of treating underlying disease. Addendum: appeared to respond to verbal stimuli, but very agitated-->precedex started with improvement in comfort and respiratory status. ccm time 40 min Kwasi Lee MD ZACHARY
--- NOTE | 2017-09-14 14:44 | CP.PCM.PN ---
<Ana Interiano - Last Filed: 09/14/17 14:39> Subjective - Date & Time of Evaluation Date of Evaluation: 09/14/17 Time of Evaluation: 14:39 - Subjective Subjective: Ana Interiano, PGY1, Medicine Progress Note for Dr Barroso: Patient seen and examined at bedside. Pt febrile overnight at midnight, 100.2 F. Discontinued propofol and fentanyl. Still on Precedex drip. On heparin and dobutamine drips as well. Pt opening eyes spontaneously, moving extremities, nonpurposeful movements, does not obey commands. ROS unobtainable as pt is intubated and sedated. Objective - Vital Signs/Intake and Output Vital Signs (last 24 hours): Temp Pulse Resp BP Pulse Ox 99.8 F H 120 H 39 H 101/84 95 09/14/17 04:00 09/14/17 06:50 09/14/17 08:07 09/14/17 10:40 09/14/17 08:07 Intake and Output: 09/14/17 09/14/17 06:59 18:59 Intake Total 1978 100 Output Total 1200 Balance 778 100 - Medications Medications: Current Medications Albuterol/Ipratropium (Duoneb 3 Mg/0.5 Mg (3 Ml) Ud) 3 ml IH Q2H PRN PRN Reason: Shortness of Breath Last Admin: 09/07/17 04:25 Dose: 3 ml Albuterol/Ipratropium (Duoneb 3 Mg/0.5 Mg (3 Ml) Ud) 3 ml IH [id number] [facility] Last Admin: 09/14/17 14:09 Dose: 3 ml Artificial Tears (Artificial Tears Opht Oint) 0 gm OU Q12 [facility] Last Admin: 09/14/17 10:55 Dose: 1 gm Aspirin (Aspirin Chewable) 81 mg PO DAILY [facility] Last Admin: 09/14/17 10:40 Dose: 81 mg Atorvastatin Calcium (Lipitor) 40 mg PO DIN [facility] Last Admin: 09/13/17 16:32 Dose: 40 mg Calcium Acetate (Phoslo) 1,334 mg PO WM [facility] Furosemide (Lasix) 40 mg IVP DAILY [facility] Last Admin: 09/14/17 10:40 Dose: 40 mg Dobutamine HCl/Dextrose (Dobutamine/Dextrose 5% 500mg/250ml) 500 mg in 250 mls @ 7.327 mls/hr IV .Q24H PRN; Protocol; 2.5 MCG/KG/MIN PRN Reason: TITRATE PER PROTOCOL Last Admin: 09/13/17 23:18 Dose: 5 mcg/kg/min, 14.654 mls/hr Meropenem/Sodium Chloride (Meropenem 1g/Ns 100ml Ivpb) 1 gm in 100 mls @ 100 mls/hr IVPB Q12 [facility] PRN Reason: Protocol Stop: 09/15/17 14:01 Last Admin: 09/14/17 10:41 Dose: 100 mls/hr Propofol (Diprivan) 1,000 mg in 100 mls @ 3.13 mls/hr IV .Q24H PRN; Protocol; 5 MCG/KG/MIN PRN Reason: TITRATE PER MD ORDER Last Admin: 09/14/17 06:07 Dose: 40 mcg/kg/min, 25.038 mls/hr Doxycycline Hyclate 100 mg/ (Sodium Chloride) 100 mls @ 100 mls/hr IVPB Q12 [facility] PRN Reason: Protocol Stop: 09/19/17 22:01 Last Admin: 09/14/17 10:43 Dose: 100 mls/hr Heparin Sodium/Sodium Chloride (Heparin 54125 Units/250ml 1/2 Normal Saline) 25 ,000 units in 250 mls @ 11.485 mls/hr IV .[id number] PRN; Protocol; 12 UNITS/KG/HR PRN Reason: PER MD'S ORDER Last Admin: 09/14/17 01:37 Dose: 17.22 units/kg/hr, 16.481 mls/hr Insulin Human Regular 100 (units/ Sodium Chloride) 100 mls @ 0.5 mls/hr IV .Q24H PRN; Protocol; 0.5 UNITS/HR PRN Reason: TITRATE PER MD ORDER Last Titration: 09/14/17 03:00 Dose: 3 units/hr, 3 mls/hr Dexmedetomidine HCl (Precedex 4 Mcg/Ml (100 Ml)) 400 mcg in 100 mls @ 4.853 mls /hr IV .[id number] PRN; Protocol; 0.2 MCG/KG/HR PRN Reason: Agitation Last Admin: 09/14/17 12:20 Dose: 0.2 mcg/kg/hr, 4.853 mls/hr Linezolid (Zyvox 600mg/300ml D5w) 600 mg in 300 mls @ 200 mls/hr IVPB Q12 [facility] PRN Reason: Protocol Stop: 09/21/17 10:01 Last Admin: 09/14/17 10:42 Dose: 200 mls/hr Midodrine (Proamatine) 10 mg PO TID [facility] Last Admin: 09/14/17 10:44 Dose: 10 mg Pantoprazole Sodium (Protonix Inj) 40 mg IVP BID [facility] Ticagrelor (Brilinta) 90 mg PO BID [facility] Last Admin: 09/12/17 10:29 Dose: 90 mg Vitamin A (Vitamin A & D Oint Ud Foilpak) 1 ea TOP Q8 PRN PRN Reason: Dry skin - Labs Labs: 09/14/17 06:10 09/14/17 11:30 PT 17.1 SECONDS (9.4-12.5) H 09/05/17 21:45 INR 1.49 (0.93-1.08) H 09/05/17 21:45 APTT 69.7 Seconds (25.1-36.5) H 09/14/17 06:10 - Additional Findings Additional findings: - Constitutional Appears: Chronically Ill, remains intubated - Head Exam Head Exam: NORMAL INSPECTION, NORMOCEPHALIC - Eye Exam Eye Exam: Normal appearance. absent: Conjunctival injection, Scleral icterus - ENT Exam Additional comments: ET tube in place. + blood seen around nasal and oral areas. - Respiratory Exam Additional comments: Intubated on vent PRVC TV 400, PEEP 12, RR 28, 60% FiO2 - Cardiovascular Exam Cardiovascular Exam: afib - irregular. absent: Murmur - GI/Abdominal Exam GI & Abdominal Exam: Soft, Normal Bowel Sounds. absent: Firm, Guarding, Rigid, Tenderness - Extremities Exam Extremities Exam: Normal Inspection - Neurological Exam Additional comments: opens eyes spontaneously, moving extremities, nonpurposeful movements, does not obey commands - Psychiatric Exam Additional comments: intubated - Skin Skin Exam: Dry, Intact Assessment and Plan - Assessment and Plan (Free Text) Assessment: 67 yr old male with PMH with CAD s/p 15 stents, COPD, rheumatoid arthritis found to be in hypoxic respiratory distress, ARDS, NSTEMI, community acquired pneumonia and septic shock secondary to urosepsis with positive blood cultures. Pt has worsening hypernatremia, rising BUN, worsening leukocytosis and anemia ( 8.2 today), still remains febrile overnight: Hypernatremia: - Na 155 - Increased free water flushes 400 ml q 3 hours per ICU team - F/u BMP in afternoon NSTEMI - troponin elevated - Cardiology (Dr. Arias) following, recs appreciated * Unstable for Cardiac cath * Echo: dilated LV, EF 25-30%, hypokinesis of LV, trace AR, mild/mod MR, mild TR, dilated IVC - ASA - heparin drip - Hold brilinta due to anemia, per Cardio - holding Beta blockers 2/2 hypotension - holding crestor 2/2 rhabdo and elevated LFTs Respiratory failure - pneumonia vs acute decompensated CHF vs. history of COPD - intubated and sedated on precedex. Discontinued fentanyl and propofol - on dobutamine drip, midodrine - CT chest: New alveolar and interstitial infiltrates are seen in both lower lobes as well as the right upper lobe. This is superimposed upon chronic emphysematous changes - ABG showing respiratory alkalosis - negative for MRSA - flu negative - legionella negative - duonebs [facility] and PRN - solumedrol 50 mg IV Q12 - lasix 60 IV q 8h - Zyvox, meropenem, Mycamine, Hyperkalemia: - resolved - Cont to monitor EMMA - Lasix prn - will monitor - nephro on board. appreciate recs UTI - Repeat blood and urine culture negative - UA showing elevated leuk esterase and nitrate - blood cultures showing E. coli - urine culture showing E. coli - abx as above - repeat cultured and repeat procalcitonin in light of spiking temps E. coli bacteremia - blood and urine cultures positive for E. coli - Repeat blood and urine prelim negative - Sputum: + yeast - ID consulted, recs appreciated - abx as above Left inguinal hernia - CT abd/pel:There is a 5 cm diameter left inguinal hernia that contains a portion of the sigmoid colon. There is no obstruction - not causing problems at this time Hypotension - dobutamine gtt, and midodrine - Maintain MAP above 65 - holding beta adali for now Immunocompromised 2/2 RA - Bactrim for PCP ppx discontinued due to renal impairment PPX * GI protonix * DVT heparin drip Discussed with Dr. Barroso. <Gracia Barroso - Last Filed: 09/15/17 12:27> Objective - Vital Signs/Intake and Output Vital Signs (last 24 hours): Temp Pulse Resp BP Pulse Ox 99 F 99 H 32 H 130/72 96 09/15/17 04:00 09/15/17 05:49 09/15/17 08:41 09/15/17 09:46 09/15/17 08:41 Intake and Output: 09/15/17 09/15/17 06:59 18:59 Intake Total 2980 545.0 Output Total 1700 Balance 1280 545.0 - Medications Medications: Current Medications Albuterol/Ipratropium (Duoneb 3 Mg/0.5 Mg (3 Ml) Ud) 3 ml IH Q2H PRN PRN Reason: Shortness of Breath Last Admin: 09/07/17 04:25 Dose: 3 ml Albuterol/Ipratropium (Duoneb 3 Mg/0.5 Mg (3 Ml) Ud) 3 ml IH [id number] [facility] Last Admin: 09/15/17 08:35 Dose: 3 ml Artificial Tears (Artificial Tears Opht Oint) 0 gm OU Q12 [facility] Last Admin: 09/15/17 09:53 Dose: 1 gm Aspirin (Aspirin Chewable) 81 mg PO DAILY [facility] Last Admin: 09/15/17 09:52 Dose: 81 mg Atorvastatin Calcium (Lipitor) 40 mg PO DIN [facility] Last Admin: 09/14/17 18:43 Dose: 40 mg Calcium Acetate (Phoslo) 1,334 mg PO WM [facility] Last Admin: 09/15/17 08:18 Dose: 1,334 mg Enoxaparin Sodium (Lovenox) 100 mg SC Q24H [facility] PRN Reason: Protocol Last Admin: 09/15/17 09:46 Dose: 100 mg Furosemide (Lasix) 40 mg IVP DAILY [facility] Last Admin: 09/15/17 09:46 Dose: 40 mg Dobutamine HCl/Dextrose (Dobutamine/Dextrose 5% 500mg/250ml) 500 mg in 250 mls @ 7.327 mls/hr IV .Q24H PRN; Protocol; 2.5 MCG/KG/MIN PRN Reason: TITRATE PER PROTOCOL Last Admin: 09/15/17 10:59 Dose: 5 mcg/kg/min, 14.654 mls/hr Meropenem/Sodium Chloride (Meropenem 1g/Ns 100ml Ivpb) 1 gm in 100 mls @ 100 mls/hr IVPB Q12 [facility] PRN Reason: Protocol Stop: 09/15/17 14:01 Last Admin: 09/15/17 09:47 Dose: 100 mls/hr Insulin Human Regular 100 (units/ Sodium Chloride) 100 mls @ 0.5 mls/hr IV .Q24H PRN; Protocol; 0.5 UNITS/HR PRN Reason: TITRATE PER MD ORDER Last Titration: 09/15/17 10:00 Dose: 2 units/hr, 2 mls/hr Dexmedetomidine HCl (Precedex 4 Mcg/Ml (100 Ml)) 400 mcg in 100 mls @ 4.853 mls /hr IV .[id number] PRN; Protocol; 0.2 MCG/KG/HR PRN Reason: Agitation Last Admin: 09/15/17 07:47 Dose: 0.2 mcg/kg/hr, 4.853 mls/hr Linezolid (Zyvox 600mg/300ml D5w) 600 mg in 300 mls @ 200 mls/hr IVPB Q12 [facility] PRN Reason: Protocol Stop: 09/21/17 10:01 Last Admin: 09/15/17 09:51 Dose: 200 mls/hr Propofol (Diprivan) 1,000 mg in 100 mls @ 2.912 mls/hr IV .Q24H PRN; Protocol; 5 MCG/KG/MIN PRN Reason: TITRATE PER MD ORDER Last Admin: 09/15/17 08:52 Dose: 40 mcg/kg/min, 23.297 mls/hr Dextrose (Dextrose 5% In Water 1000 Ml) 1,000 mls @ 60 mls/hr IV .[id number] [facility] Last Admin: 09/14/17 19:00 Dose: 60 mls/hr Micafungin Sodium 100 mg/ (Dextrose) 100 mls @ 100 mls/hr IV DAILY [facility] PRN Reason: Protocol Stop: 09/22/17 10:01 Doxycycline Hyclate 100 mg/ (Dextrose) 100 mls @ 100 mls/hr IVPB Q12 [facility] PRN Reason: Protocol Stop: 09/19/17 22:01 Midodrine (Proamatine) 10 mg PO TID [facility] Last Admin: 09/14/17 18:44 Dose: 10 mg Nicotine (Nicoderm Cq) 1 patch TD DAILY [facility] Pantoprazole Sodium (Protonix Inj) 40 mg IVP BID [facility] Last Admin: 09/15/17 09:51 Dose: 40 mg Ticagrelor (Brilinta) 90 mg PO BID [facility] Last Admin: 09/12/17 10:29 Dose: 90 mg Vitamin A (Vitamin A & D Oint Ud Foilpak) 1 ea TOP Q8 PRN PRN Reason: Dry skin - Labs Labs: 09/15/17 05:00 09/15/17 05:00 PT 15.3 SECONDS (9.4-12.5) H 09/14/17 16:20 INR 1.33 (0.93-1.08) H 09/14/17 16:20 APTT 45.1 Seconds (25.1-36.5) H 09/15/17 08:15 Attending/Attestation - Attestation I have personally seen and examined this patient.: Yes I have fully participated in the care of the patient.: Yes I have reviewed all pertinent clinical information, including history, physical exam and plan: Yes Notes (Text): 09/15/17 12:25 Patient was seen and examined with nuclear medical technologist. Agreed with resident assessment and plan. 67 yrs old male with PMHx of CAD,SP Multiple cardiac stents,CHF with systolic dysfunction. Rheumatoid arthiristis and HTN was admitted with , NSTEMI, and gram negative bacteremia, went into respiratory failure, ARDS, septic/ cardiogenic shock, requiring vasopressors Patient is intubated, sedated, off Levophed on Dobutamine for CHF. Patient is still hypoxic requiring high FIO2 .Chest X rays showed bilateral alevaolar infiltrates likely combination of PNA with Pulmonary edema, on FIO 2 of 60% .Critical care team is managing respiratory failure. Sepsis on IV antibiotics as per ID for Pneumonia and Ecoli Bacteremia.Repeat blood cultures are negative. Renal failure, Creatinin is unchanged, had good urine out put, we will monitor BUN and creatinin with diuresis. Hypernatremic, on free water v Anemia, will monitor hemoglobin . Management plan was discussed with family. Prognosis is guarded.
--- NOTE | 2017-09-14 15:13 | PN ---
DATE: 09/14/2017 REASON FOR CONSULTATION AND FOLLOWUP: Cardiac evaluation, [id number]-[id number]-elevation myocardial infarction, Gram-negative sepsis, septic shock, intubated, respiratory failure, and multiorgan dysfunction requiring vasopressors. SUBJECTIVE: The patient remains still intubated, on high oxygen, on vent, on Dobutrex and heparin as well as insulin drip as well as sedated, on vent. OBJECTIVE: VITAL SIGNS: Heart rate 107, atrial fibrillation; blood pressure 131/73. PERRLA. Extraocular muscles intact. NECK: Supple. No carotid bruit or thyromegaly. CHEST: Clear to auscultation. HEART: S1 and S2, regular. ABDOMEN: Soft. EXTREMITIES: Clubbing and cyanosis negative. LABORATORY DATA: Blood workup as follows: WBC , hemoglobin , hematocrit 26.6, platelet count 208. Chemistry shows sodium 155, potassium 4.4, chloride 113, carbon dioxide 29, anion gap of 18, BUN 130, creatinine 2.1. Telemetry shows atrial fibrillation with moderate to high rate. Chest x-ray shows right lower lobe infiltrate. IMPRESSION: Respiratory failure, Gram-negative sepsis, cardiomyopathy, coronary artery disease, hgu-UK-umensiy-elevation myocardial infarction, rhabdomyolysis, acute kidney injury, multiorgan dysfunction, protein-calorie malnutrition, hypernatremia, immunocompromised, rheumatoid arthritis, rule out Rogelio syndrome, hypoxemia requiring high oxygen and PEEP, monitor input and output, increase free fluid to 400 mL an hour. We will continue Dobutrex, heparin for atrial fibrillation cak-JG-zaxwukm-elevation myocardial infarction, requiring high oxygen, increase free fluid through the nasogastric tube for hypernatremia, continue heparin drip for both atrial fibrillation and khx-XJ-feimxuv-elevation myocardial infarction, continue Dobutrex, monitor vent as tolerated, continue sedation. Discussed in length with Dr. Lee. The patient is not weanable from the vent and consideration for trach would be early, so we will give a day or two. If the patient fails, then consider tracheostomy to prevent tracheal stenosis. At this point, cardiac catheterization is not planned since the patient is completely extubated, then we can consider multiorgan dysfunction during the cardiac catheterization. We will be more detrimental and we will put in more spinal slope and we will destabilize the patient rather than improving. Interim, continue aspirin. Brilinta, I will discontinue because of the bleeding from the gums, but continue heparin for now. Once the definite plan is made the patient's tracheostomy, then we can switch over to Coumadin. Overall, the patient's condition is critical. Long-term prognosis is guarded. We will follow with you and discuss in length with Dr. Lee. Gracia Arias MD
[2017-09-14 16:50] LABS: INR 1.33 (0.93-1.08); PARTIAL THROMBOPLASTIN TIME 46.2 Seconds (25.1-36.5); PROTHROMBIN TIME 15.3 SECONDS (9.4-12.5)
[2017-09-14 17:02] LABS: ALBUMIN 2.9 g/dL (3.0-4.8); CALCIUM 8.4 mg/dL (8.4-10.5)
[2017-09-14] MEDS: DOBUTamine 500mg/250ml D5W 500 MG/250 ML BAG IV PRN (18:08)
[2017-09-15] MEDS: Albuterol-Ipratrop 3 mg / 0.5 (3 ml) UD IH SCH ×4 (01:32→21:04)
[2017-09-15] MEDS: Dexmedetomidine 400mcg/100mL 400 MCG/100 ML BOTTLE IV PRN ×5 (01:53→21:25)
[2017-09-15 05:42] LABS: ARTERIAL BLOOD GAS HCO3 31.3 mmol/L (21-28); ARTERIAL BLOOD GAS HEMOGLOBIN 7.7 g/dL (11.7-17.4); ARTERIAL BLOOD GAS O2 CAPACITY 10.5 mL/dl (16-24); ARTERIAL BLOOD GAS O2 CONTENT 10.4 ML/dl (15-23); ARTERIAL BLOOD GAS O2 SAT 98.8 % (95-98); ARTERIAL BLOOD GAS PCO2 43 mm/Hg (35-45); ARTERIAL BLOOD GAS PH 7.47 (7.35-7.45); ARTERIAL BLOOD GAS TCO2 32.6 mmol.L (22-28)
[2017-09-15] MEDS: Propofol 10 mg/ml 1,000 MG/100 ML VIAL IV PRN ×2 (05:52→08:52)
[2017-09-15 05:54] LABS: BASO # 0.02 K/mm3 (0.0-2.0); BASO % 0.1 % (0.0-3.0); EOS # 0.3 (0.0-0.7); EOS % 1.6 % (1.5-5.0); GRAN # 13.5 (1.4-6.5); GRAN % 81.8 % (50.0-68.0); LYMPH # 1.9 (1.2-3.4); LYMPH % 11.5 % (22.0-35.0); MEAN CORPUSCULAR HEMOGLOBIN 30.2 pg (25.0-35.0); MEAN CORPUSCULAR HGB CONC 31.1 g/dl (31.0-37.0); MEAN PLATELET VOLUME 11.7 fl (7.0-11.0); MONO # 0.8 (0.1-0.6); RBC 2.65 10^6/uL (3.5-6.1); RED CELL DISTRIBUTION WIDTH 16.8 % (11.5-14.5); WHITE BLOOD COUNT 16.5 10^3/ul (4.5-11.0)
[2017-09-15 07:25] LABS: ALBUMIN 2.8 g/dL (3.0-4.8)
--- NOTE | 2017-09-15 08:45 | RAD ---
HISTORY: intubated, pulm edema COMPARISON: 09/14/2017 FINDINGS: LUNGS: Extensive mid right lung infiltrate, slightly worsened. Left infrahilar infiltrate also persistent. Coarse interstitial markings at both lung bases. No pneumothorax. PLEURA: No pleural effusion. CARDIOVASCULAR: ET tube, NG tube and left PICC catheter are all unchanged. OSSEOUS STRUCTURES: No significant abnormalities. VISUALIZED UPPER ABDOMEN: Normal. OTHER FINDINGS: None. IMPRESSION: Extensive bilateral pulmonary infiltrate. Possible pneumonia. Lines and tubes unchanged.
[2017-09-15] MEDS: Insulin Regular 100 UNITS in Sodium Chloride 0.9% 99 ML IV PRN (08:59)
[2017-09-15 09:18] LABS: ARTERIAL BLOOD GAS HCO3 30.5 mmol/L (21-28); ARTERIAL BLOOD GAS HEMOGLOBIN 12.3 g/dL (11.7-17.4); ARTERIAL BLOOD GAS O2 CAPACITY 16.8 mL/dl (16-24); ARTERIAL BLOOD GAS O2 CONTENT 15.7 ML/dl (15-23); ARTERIAL BLOOD GAS O2 SAT 93.7 % (95-98); ARTERIAL BLOOD GAS PCO2 40 mm/Hg (35-45); ARTERIAL BLOOD GAS PH 7.49 (7.35-7.45); ARTERIAL BLOOD GAS TCO2 31.7 mmol.L (22-28)
[2017-09-15] MEDS: Enoxaparin 100 mg Syringe SC SCH (09:46)
[2017-09-15] MEDS: Meropenem 1g/NS 100mL IVPB 1 GM/100 ML PIGGYBACK IVPB SCH (09:47)
[2017-09-15] MEDS: Linezolid 600 mg in D5W 300 ml 600 MG/300 ML BAG IVPB SCH ×2 (09:51→21:25)
--- NOTE | 2017-09-15 09:52 | CP.PCM.PN ---
Subjective - Date & Time of Evaluation Date of Evaluation: 09/15/17 Time of Evaluation: 09:25 - Subjective Subjective: Continues to be on the ventilator, no fevers overnight, no diarrhea. Objective - Vital Signs/Intake and Output Vital Signs (last 24 hours): Temp Pulse Resp BP Pulse Ox 99 F 99 H 39 H 120/70 97 09/15/17 04:00 09/15/17 05:49 09/14/17 08:07 09/15/17 04:46 09/15/17 05:30 Intake and Output: 09/14/17 09/15/17 18:59 06:59 Intake Total 3000 2980 Output Total 2000 1700 Balance 1000 1280 - Medications Medications: Current Medications Albuterol/Ipratropium (Duoneb 3 Mg/0.5 Mg (3 Ml) Ud) 3 ml IH Q2H PRN PRN Reason: Shortness of Breath Last Admin: 09/07/17 04:25 Dose: 3 ml Albuterol/Ipratropium (Duoneb 3 Mg/0.5 Mg (3 Ml) Ud) 3 ml IH [id number] [facility] Last Admin: 09/15/17 01:32 Dose: 3 ml Artificial Tears (Artificial Tears Opht Oint) 0 gm OU Q12 [facility] Last Admin: 09/14/17 23:00 Dose: 1 gm Aspirin (Aspirin Chewable) 81 mg PO DAILY [facility] Last Admin: 09/14/17 10:40 Dose: 81 mg Atorvastatin Calcium (Lipitor) 40 mg PO DIN [facility] Last Admin: 09/14/17 18:43 Dose: 40 mg Calcium Acetate (Phoslo) 1,334 mg PO WM [facility] Last Admin: 09/14/17 18:43 Dose: 1,334 mg Furosemide (Lasix) 40 mg IVP DAILY [facility] Last Admin: 09/14/17 10:40 Dose: 40 mg Dobutamine HCl/Dextrose (Dobutamine/Dextrose 5% 500mg/250ml) 500 mg in 250 mls @ 7.327 mls/hr IV .Q24H PRN; Protocol; 2.5 MCG/KG/MIN PRN Reason: TITRATE PER PROTOCOL Last Admin: 09/14/17 18:08 Dose: 5 mcg/kg/min, 14.654 mls/hr Meropenem/Sodium Chloride (Meropenem 1g/Ns 100ml Ivpb) 1 gm in 100 mls @ 100 mls/hr IVPB Q12 [facility] PRN Reason: Protocol Stop: 09/15/17 14:01 Last Admin: 09/14/17 21:28 Dose: 100 mls/hr Doxycycline Hyclate 100 mg/ (Sodium Chloride) 100 mls @ 100 mls/hr IVPB Q12 [facility] PRN Reason: Protocol Stop: 09/19/17 22:01 Last Admin: 09/14/17 22:41 Dose: 100 mls/hr Heparin Sodium/Sodium Chloride (Heparin 10983 Units/250ml 1/2 Normal Saline) 25 ,000 units in 250 mls @ 11.485 mls/hr IV .[id number] PRN; Protocol; 12 UNITS/KG/HR PRN Reason: PER MD'S ORDER Last Titration: 09/15/17 03:01 Dose: 16 units/kg/hr, 15.313 mls/hr Insulin Human Regular 100 (units/ Sodium Chloride) 100 mls @ 0.5 mls/hr IV .Q24H PRN; Protocol; 0.5 UNITS/HR PRN Reason: TITRATE PER MD ORDER Last Titration: 09/15/17 05:47 Dose: 2 units/hr, 2 mls/hr Dexmedetomidine HCl (Precedex 4 Mcg/Ml (100 Ml)) 400 mcg in 100 mls @ 4.853 mls /hr IV .[id number] PRN; Protocol; 0.2 MCG/KG/HR PRN Reason: Agitation Last Admin: 09/15/17 01:53 Dose: 0.2 mcg/kg/hr, 4.853 mls/hr Linezolid (Zyvox 600mg/300ml D5w) 600 mg in 300 mls @ 200 mls/hr IVPB Q12 [facility] PRN Reason: Protocol Stop: 09/21/17 10:01 Last Admin: 09/14/17 21:28 Dose: 200 mls/hr Propofol (Diprivan) 1,000 mg in 100 mls @ 2.912 mls/hr IV .Q24H PRN; Protocol; 5 MCG/KG/MIN PRN Reason: TITRATE PER MD ORDER Last Admin: 09/15/17 05:52 Dose: 30 mcg/kg/min, 17.472 mls/hr Dextrose (Dextrose 5% In Water 1000 Ml) 1,000 mls @ 60 mls/hr IV .[id number] [facility] Last Admin: 09/14/17 19:00 Dose: 60 mls/hr Micafungin Sodium 100 mg/ (Sodium Chloride) 100 mls @ 100 mls/hr IV DAILY [facility] PRN Reason: Protocol Stop: 09/22/17 10:01 Midodrine (Proamatine) 10 mg PO TID [facility] Last Admin: 09/14/17 18:44 Dose: 10 mg Pantoprazole Sodium (Protonix Inj) 40 mg IVP BID [facility] Last Admin: 09/14/17 18:43 Dose: 40 mg Ticagrelor (Brilinta) 90 mg PO BID [facility] Last Admin: 09/12/17 10:29 Dose: 90 mg Vitamin A (Vitamin A & D Oint Ud Foilpak) 1 ea TOP Q8 PRN PRN Reason: Dry skin - Labs Labs: 09/15/17 05:00 09/14/17 16:20 PT 15.3 SECONDS (9.4-12.5) H 09/14/17 16:20 INR 1.33 (0.93-1.08) H 09/14/17 16:20 APTT 106.8 Seconds (25.1-36.5) H* 09/15/17 02:10 - Constitutional Appears: Other (intubated and sedated) - Head Exam Head Exam: NORMAL INSPECTION - ENT Exam Additional comments: ET tube in place - Respiratory Exam Respiratory Exam: Decreased Breath Sounds - Cardiovascular Exam Cardiovascular Exam: +S1, +S2 - GI/Abdominal Exam GI & Abdominal Exam: Soft. absent: Tenderness - Extremities Exam Additional comments: left arm PICC line in place, intact and clean, right arm arterial line has been removed Assessment and Plan - Assessment and Plan (Free Text) Plan: Assessment severe sepsis S/P shock with VDRF and renal failure due to E. coli bacteremia, consider urine as the source, on top of possible myocardial infarction and possible pneumonia, now also with pulmonary edema, slowly decreasing - new onset fever R/O line-related bacteremia, R/O worsening pneumonia history of acute cholecystitis, S/P laparoscopic cholecystectomy HTN atrial fibrillation with history of cardioversion rheumatoid arthritis COPD dyslipidemia history of pancreatitis S/P left ACL repair CAD S/P PCI S/P left toe amputation Plan continue Merrem day 6 and Doxycycline (for pneumonia); MRSA nares is negative; urine Legionella Ag is negative; rapid flu test is negative; given a dose of IV vanco and continue Zyvox (day 2) and Mycamine day 2 - will follow up repeat blood cx from the central line, follow up Fungitell and Galactomannan tests, follow up sputum cx will continue to monitor clinically overall prognosis is guarded at best
[2017-09-15] MEDS: Mineral Oil/Petrolatum Opht Oint(3.5 gm) OU SCH ×2 (09:53→22:00)
[2017-09-15] MEDS ORDERED: Micafungin 100 MG in Sodium Chloride 0.9% 100 ML IV SCH (10:00)
[2017-09-15] MEDS ORDERED: Morphine 5 MG/ML SYRINGE IVP STA (10:42)
[2017-09-15] MEDS: DOBUTamine 500mg/250ml D5W 500 MG/250 ML BAG IV PRN (10:59)
--- NOTE | 2017-09-15 12:20 | CP.PCM.PN ---
<Spring Li - Last Filed: 09/15/17 12:15> Subjective - Date & Time of Evaluation Date of Evaluation: 09/15/17 Time of Evaluation: 12:15 - Subjective Subjective: ICU Progress Note for Billy Benavides PGY2 Patient seen and examined at bedside. There were no acute overnight events as per nursing. A-line was removed yesterday. Patient is intubated and sedated, but arousable. ROS could not be obtained. Objective - Vital Signs/Intake and Output Vital Signs (last 24 hours): Temp Pulse Resp BP Pulse Ox 99 F 99 H 32 H 130/72 96 09/15/17 04:00 09/15/17 05:49 09/15/17 08:41 09/15/17 09:46 09/15/17 08:41 Intake and Output: 09/15/17 09/15/17 06:59 18:59 Intake Total 2980 545.0 Output Total 1700 Balance 1280 545.0 - Medications Medications: Current Medications Albuterol/Ipratropium (Duoneb 3 Mg/0.5 Mg (3 Ml) Ud) 3 ml IH Q2H PRN PRN Reason: Shortness of Breath Last Admin: 09/07/17 04:25 Dose: 3 ml Albuterol/Ipratropium (Duoneb 3 Mg/0.5 Mg (3 Ml) Ud) 3 ml IH [id number] [facility] Last Admin: 09/15/17 08:35 Dose: 3 ml Artificial Tears (Artificial Tears Opht Oint) 0 gm OU Q12 [facility] Last Admin: 09/15/17 09:53 Dose: 1 gm Aspirin (Aspirin Chewable) 81 mg PO DAILY [facility] Last Admin: 09/15/17 09:52 Dose: 81 mg Atorvastatin Calcium (Lipitor) 40 mg PO DIN [facility] Last Admin: 09/14/17 18:43 Dose: 40 mg Calcium Acetate (Phoslo) 1,334 mg PO WM [facility] Last Admin: 09/15/17 08:18 Dose: 1,334 mg Enoxaparin Sodium (Lovenox) 100 mg SC Q24H [facility] PRN Reason: Protocol Last Admin: 09/15/17 09:46 Dose: 100 mg Furosemide (Lasix) 40 mg IVP DAILY [facility] Last Admin: 09/15/17 09:46 Dose: 40 mg Dobutamine HCl/Dextrose (Dobutamine/Dextrose 5% 500mg/250ml) 500 mg in 250 mls @ 7.327 mls/hr IV .Q24H PRN; Protocol; 2.5 MCG/KG/MIN PRN Reason: TITRATE PER PROTOCOL Last Admin: 09/15/17 10:59 Dose: 5 mcg/kg/min, 14.654 mls/hr Meropenem/Sodium Chloride (Meropenem 1g/Ns 100ml Ivpb) 1 gm in 100 mls @ 100 mls/hr IVPB Q12 [facility] PRN Reason: Protocol Stop: 09/15/17 14:01 Last Admin: 09/15/17 09:47 Dose: 100 mls/hr Insulin Human Regular 100 (units/ Sodium Chloride) 100 mls @ 0.5 mls/hr IV .Q24H PRN; Protocol; 0.5 UNITS/HR PRN Reason: TITRATE PER MD ORDER Last Titration: 09/15/17 10:00 Dose: 2 units/hr, 2 mls/hr Dexmedetomidine HCl (Precedex 4 Mcg/Ml (100 Ml)) 400 mcg in 100 mls @ 4.853 mls /hr IV .[id number] PRN; Protocol; 0.2 MCG/KG/HR PRN Reason: Agitation Last Admin: 09/15/17 07:47 Dose: 0.2 mcg/kg/hr, 4.853 mls/hr Linezolid (Zyvox 600mg/300ml D5w) 600 mg in 300 mls @ 200 mls/hr IVPB Q12 [facility] PRN Reason: Protocol Stop: 09/21/17 10:01 Last Admin: 09/15/17 09:51 Dose: 200 mls/hr Propofol (Diprivan) 1,000 mg in 100 mls @ 2.912 mls/hr IV .Q24H PRN; Protocol; 5 MCG/KG/MIN PRN Reason: TITRATE PER MD ORDER Last Admin: 09/15/17 08:52 Dose: 40 mcg/kg/min, 23.297 mls/hr Dextrose (Dextrose 5% In Water 1000 Ml) 1,000 mls @ 60 mls/hr IV .[id number] [facility] Last Admin: 09/14/17 19:00 Dose: 60 mls/hr Micafungin Sodium 100 mg/ (Dextrose) 100 mls @ 100 mls/hr IV DAILY [facility] PRN Reason: Protocol Stop: 09/22/17 10:01 Doxycycline Hyclate 100 mg/ (Dextrose) 100 mls @ 100 mls/hr IVPB Q12 [facility] PRN Reason: Protocol Stop: 09/19/17 22:01 Midodrine (Proamatine) 10 mg PO TID [facility] Last Admin: 09/14/17 18:44 Dose: 10 mg Nicotine (Nicoderm Cq) 1 patch TD DAILY [facility] Pantoprazole Sodium (Protonix Inj) 40 mg IVP BID [facility] Last Admin: 09/15/17 09:51 Dose: 40 mg Ticagrelor (Brilinta) 90 mg PO BID [facility] Last Admin: 09/12/17 10:29 Dose: 90 mg Vitamin A (Vitamin A & D Oint Ud Foilpak) 1 ea TOP Q8 PRN PRN Reason: Dry skin - Labs Labs: 09/15/17 05:00 09/15/17 05:00 PT 15.3 SECONDS (9.4-12.5) H 09/14/17 16:20 INR 1.33 (0.93-1.08) H 09/14/17 16:20 APTT 45.1 Seconds (25.1-36.5) H 09/15/17 08:15 - Constitutional Appears: No Acute Distress, Chronically Ill - Head Exam Head Exam: ATRAUMATIC, NORMAL INSPECTION, NORMOCEPHALIC - ENT Exam ENT Exam: Mucous Membranes Moist - Neck Exam Neck Exam: Full ROM - Respiratory Exam Respiratory Exam: Decreased Breath Sounds (at bases), Rhonchi, NORMAL BREATHING PATTERN - Cardiovascular Exam Cardiovascular Exam: Irregular Rhythm, +S1. absent: Gallop, Rubs, Murmur - GI/Abdominal Exam GI & Abdominal Exam: Soft, Normal Bowel Sounds. absent: Rigid, Tenderness, Mass , Rebound - Extremities Exam Extremities Exam: Pedal Edema Additional comments: + 3 bilaterally - Neurological Exam Neurological Exam: CN II-XII Intact - Skin Skin Exam: Dry, Warm Assessment and Plan - Assessment and Plan (Free Text) Assessment: This is 67 yr old male with PMH with CAD s/p 15 stents, COPD, rheumatoid arthritis found to be in hypoxic respiratory distress, ARDS, NSTEMI, community acquired pneumonia and septic shock secondary to urosepsis with positive blood cultures. Patient is noted to have pulmonary edema as well as EMMA (improved). Plan: Neuro: Intubated, Sedated on Propofol and Precedex Will do daily sedation vacation Maintain normothermia CV: NSTEMI with history of a.fib (rate controlled) CXR showed pulmonary edema (worsening) Lasix 40IVP Continue Dobutamine and Midodrine Cardio on consult-recs appreciated Lipitor, ASA Heparin d/c and started on Lovenox Brillinta d/c Maintain MAP >65 Monitor I&O Pulm: Hypoxic Resp failure, Community acquired pneumonia Pulm vasc congestion on CXR - not improving Intubated on PRVC- will wean as tolerated Lasix 40 IVP, monitor I&O will titrate to maintain spO2>92% Protective Vent strategy HOB elevated, aspiration precaution Duoneb GI: Feeds on hold for now for fluid overload Heme: Anemia- Hgb stable on Lovenox, ASA Will continue to monitor CBC Nephro: Hypernatremia on D5W@60, will attempt to change any medication with NS to D5 EMMA resolved Nephro consulted- recs appreciated Monitor I&O Contintue to monitor electrolytes and replace as needed Maintain euvolemia ID: Urosepsis, Community Acquired pneumonia Blood culture and urine culture + for G- lauren, Cultures all now negative Yeast in trach Repeat PCT ID on consult- recs appreciated Procal trending down Continue Merrem, Zyvox, Doxy and Micofungin Endo: Hx of DM Continue Insulin drip, also on D5W for hypernatremia BGM q1h Maintain euglycemia (140-180) GI ppx: Protonix DVT ppx: Lovenox Case seen, discussed reviewed with attending. Billy Li PGY2 <Kwasi Lee - Last Filed: 09/16/17 18:24> Objective - Vital Signs/Intake and Output Vital Signs (last 24 hours): Temp Pulse Resp BP Pulse Ox 100 F H 108 H 30 H 133/69 96 09/16/17 04:00 09/16/17 13:50 09/16/17 08:07 09/16/17 13:46 09/16/17 13:50 Intake and Output: 09/16/17 09/16/17 06:59 18:59 Intake Total 2755 222 Output Total 900 Balance 1855 222 - Medications Medications: Current Medications Albuterol/Ipratropium (Duoneb 3 Mg/0.5 Mg (3 Ml) Ud) 3 ml IH Q2H PRN PRN Reason: Shortness of Breath Last Admin: 09/07/17 04:25 Dose: 3 ml Albuterol/Ipratropium (Duoneb 3 Mg/0.5 Mg (3 Ml) Ud) 3 ml IH [id number] [facility] Last Admin: 09/16/17 13:47 Dose: 3 ml Artificial Tears (Artificial Tears Opht Oint) 0 gm OU Q12 [facility] Last Admin: 09/16/17 10:05 Dose: 1 gm Aspirin (Aspirin Chewable) 81 mg PO DAILY [facility] Last Admin: 09/16/17 10:05 Dose: 81 mg Bacitracin (Bacitracin) 0 gm TOP BID [facility] Calcium Acetate (Phoslo) 1,334 mg PO WM [facility] Last Admin: 09/16/17 17:29 Dose: 1,334 mg Enoxaparin Sodium (Lovenox) 100 mg SC Q24H [facility] PRN Reason: Protocol Last Admin: 09/16/17 10:01 Dose: 100 mg Furosemide (Lasix) 40 mg IVP Q12 [facility] Last Admin: 09/16/17 09:59 Dose: 40 mg Dobutamine HCl/Dextrose (Dobutamine/Dextrose 5% 500mg/250ml) 500 mg in 250 mls @ 7.327 mls/hr IV .Q24H PRN; Protocol; 2.5 MCG/KG/MIN PRN Reason: TITRATE PER PROTOCOL Last Admin: 09/16/17 05:22 Dose: 5 mcg/kg/min, 14.654 mls/hr Insulin Human Regular 100 (units/ Sodium Chloride) 100 mls @ 0.5 mls/hr IV .Q24H PRN; Protocol; 0.5 UNITS/HR PRN Reason: TITRATE PER MD ORDER Last Titration: 09/16/17 10:15 Dose: 1.5 units/hr, 1.5 mls/hr Dexmedetomidine HCl (Precedex 4 Mcg/Ml (100 Ml)) 400 mcg in 100 mls @ 4.853 mls /hr IV .[id number] PRN; Protocol; 0.2 MCG/KG/HR PRN Reason: Agitation Last Admin: 09/16/17 17:30 Dose: 1.2 mcg/kg/hr, 29.121 mls/hr Linezolid (Zyvox 600mg/300ml D5w) 600 mg in 300 mls @ 200 mls/hr IVPB Q12 [facility] PRN Reason: Protocol Stop: 09/21/17 10:01 Last Admin: 09/16/17 10:04 Dose: 200 mls/hr Propofol (Diprivan) 1,000 mg in 100 mls @ 2.912 mls/hr IV .Q24H PRN; Protocol; 5 MCG/KG/MIN PRN Reason: TITRATE PER MD ORDER Last Admin: 09/15/17 08:52 Dose: 40 mcg/kg/min, 23.297 mls/hr Dextrose (Dextrose 5% In Water 1000 Ml) 1,000 mls @ 60 mls/hr IV .[id number] [facility] Last Admin: 09/16/17 04:50 Dose: 60 mls/hr Micafungin Sodium 100 mg/ (Dextrose) 100 mls @ 100 mls/hr IV DAILY [facility] PRN Reason: Protocol Stop: 09/22/17 10:01 Last Admin: 09/16/17 10:01 Dose: 100 mls/hr Doxycycline Hyclate 100 mg/ (Dextrose) 100 mls @ 100 mls/hr IVPB Q12 [facility] PRN Reason: Protocol Stop: 09/19/17 22:01 Last Admin: 09/16/17 10:02 Dose: 100 mls/hr Meropenem 1 gm/ Sodium (Chloride) 100 mls @ 100 mls/hr IVPB Q12 [facility] PRN Reason: Protocol Stop: 09/23/17 10:16 Last Admin: 09/16/17 10:18 Dose: 100 mls/hr Morphine Sulfate (Morphine) 4 mg IVP Q6H PRN PRN Reason: Agitation Last Admin: 09/16/17 16:13 Dose: 4 mg Nicotine (Nicoderm Cq) 1 patch TD DAILY [facility] Last Admin: 09/16/17 10:23 Dose: 1 patch Pantoprazole Sodium (Protonix Inj) 40 mg IVP BID [facility] Last Admin: 09/16/17 10:00 Dose: 40 mg Ticagrelor (Brilinta) 90 mg PO BID [facility] Last Admin: 09/12/17 10:29 Dose: 90 mg Vitamin A (Vitamin A & D Oint Ud Foilpak) 1 ea TOP Q8 PRN PRN Reason: Dry skin Last Admin: 09/16/17 10:02 Dose: 1 ea - Labs Labs: 09/16/17 06:41 09/16/17 06:41 PT 15.3 SECONDS (9.4-12.5) H 09/14/17 16:20 INR 1.33 (0.93-1.08) H 09/14/17 16:20 APTT 45.1 Seconds (25.1-36.5) H 09/15/17 08:15 Attending/Attestation - Attestation I have personally seen and examined this patient.: Yes I have fully participated in the care of the patient.: Yes I have reviewed all pertinent clinical information, including history, physical exam and plan: Yes Notes (Text): 09/16/17 18:[address] Lee's note
--- NOTE | 2017-09-15 13:16 | CP.PCM.PN ---
<Ana Interiano - Last Filed: 09/15/17 13:13> Subjective - Date & Time of Evaluation Date of Evaluation: 09/15/17 Time of Evaluation: 13:13 - Subjective Subjective: Ana Interiano, PGY1, Medicine Progress Note for Dr Barroso: Patient seen and examined at bedside. No acute events overnight. Pt started on propofol. Remains intubated and sedated. Restarted tube feeds. Heparin drip held overnight, instead started on Lovenox. No fevers overnight. ROS unobtainable as pt is intubated and sedated. Objective - Vital Signs/Intake and Output Vital Signs (last 24 hours): Temp Pulse Resp BP Pulse Ox 99 F 99 H 32 H 130/72 96 09/15/17 04:00 09/15/17 05:49 09/15/17 08:41 09/15/17 09:46 09/15/17 08:41 Intake and Output: 09/15/17 09/15/17 06:59 18:59 Intake Total 2980 570.0 Output Total 1700 Balance 1280 570.0 - Medications Medications: Current Medications Albuterol/Ipratropium (Duoneb 3 Mg/0.5 Mg (3 Ml) Ud) 3 ml IH Q2H PRN PRN Reason: Shortness of Breath Last Admin: 09/07/17 04:25 Dose: 3 ml Albuterol/Ipratropium (Duoneb 3 Mg/0.5 Mg (3 Ml) Ud) 3 ml IH [id number] [facility] Last Admin: 09/15/17 08:35 Dose: 3 ml Artificial Tears (Artificial Tears Opht Oint) 0 gm OU Q12 [facility] Last Admin: 09/15/17 09:53 Dose: 1 gm Aspirin (Aspirin Chewable) 81 mg PO DAILY [facility] Last Admin: 09/15/17 09:52 Dose: 81 mg Atorvastatin Calcium (Lipitor) 40 mg PO DIN [facility] Last Admin: 09/14/17 18:43 Dose: 40 mg Calcium Acetate (Phoslo) 1,334 mg PO WM [facility] Last Admin: 09/15/17 08:18 Dose: 1,334 mg Enoxaparin Sodium (Lovenox) 100 mg SC Q24H OLMAN PRN Reason: Protocol Last Admin: 09/15/17 09:46 Dose: 100 mg Dobutamine HCl/Dextrose (Dobutamine/Dextrose 5% 500mg/250ml) 500 mg in 250 mls @ 7.327 mls/hr IV .Q24H PRN; Protocol; 2.5 MCG/KG/MIN PRN Reason: TITRATE PER PROTOCOL Last Admin: 09/15/17 10:59 Dose: 5 mcg/kg/min, 14.654 mls/hr Meropenem/Sodium Chloride (Meropenem 1g/Ns 100ml Ivpb) 1 gm in 100 mls @ 100 mls/hr IVPB Q12 OLMAN PRN Reason: Protocol Stop: 09/15/17 14:01 Last Admin: 09/15/17 09:47 Dose: 100 mls/hr Insulin Human Regular 100 (units/ Sodium Chloride) 100 mls @ 0.5 mls/hr IV .Q24H PRN; Protocol; 0.5 UNITS/HR PRN Reason: TITRATE PER MD ORDER Last Titration: 09/15/17 10:00 Dose: 2 units/hr, 2 mls/hr Dexmedetomidine HCl (Precedex 4 Mcg/Ml (100 Ml)) 400 mcg in 100 mls @ 4.853 mls /hr IV .[id number] PRN; Protocol; 0.2 MCG/KG/HR PRN Reason: Agitation Last Titration: 09/15/17 12:00 Dose: 0.6 mcg/kg/hr, 14.56 mls/hr Linezolid (Zyvox 600mg/300ml D5w) 600 mg in 300 mls @ 200 mls/hr IVPB Q12 OLMAN PRN Reason: Protocol Stop: 09/21/17 10:01 Last Admin: 09/15/17 09:51 Dose: 200 mls/hr Propofol (Diprivan) 1,000 mg in 100 mls @ 2.912 mls/hr IV .Q24H PRN; Protocol; 5 MCG/KG/MIN PRN Reason: TITRATE PER MD ORDER Last Admin: 09/15/17 08:52 Dose: 40 mcg/kg/min, 23.297 mls/hr Dextrose (Dextrose 5% In Water 1000 Ml) 1,000 mls @ 60 mls/hr IV .[id number] [facility] Last Admin: 09/14/17 19:00 Dose: 60 mls/hr Micafungin Sodium 100 mg/ (Dextrose) 100 mls @ 100 mls/hr IV DAILY OLMAN PRN Reason: Protocol Stop: 09/22/17 10:01 Doxycycline Hyclate 100 mg/ (Dextrose) 100 mls @ 100 mls/hr IVPB Q12 OLMAN PRN Reason: Protocol Stop: 09/19/17 22:01 Lorazepam (Ativan) 2 mg IVP Q6H PRN; Protocol PRN Reason: Anxiety Last Admin: 09/15/17 12:40 Dose: 2 mg Midodrine (Proamatine) 10 mg PO TID [facility] Last Admin: 09/14/17 18:44 Dose: 10 mg Nicotine (Nicoderm Cq) 1 patch TD DAILY [facility] Pantoprazole Sodium (Protonix Inj) 40 mg IVP BID [facility] Last Admin: 09/15/17 09:51 Dose: 40 mg Ticagrelor (Brilinta) 90 mg PO BID [facility] Last Admin: 09/12/17 10:29 Dose: 90 mg Vitamin A (Vitamin A & D Oint Ud Foilpak) 1 ea TOP Q8 PRN PRN Reason: Dry skin - Labs Labs: 09/15/17 05:00 09/15/17 05:00 PT 15.3 SECONDS (9.4-12.5) H 09/14/17 16:20 INR 1.33 (0.93-1.08) H 09/14/17 16:20 APTT 45.1 Seconds (25.1-36.5) H 09/15/17 08:15 - Additional Findings Additional findings: - Constitutional Appears: Chronically Ill, remains intubated - Head Exam Head Exam: NORMAL INSPECTION, NORMOCEPHALIC - Eye Exam Eye Exam: Normal appearance. absent: Conjunctival injection, Scleral icterus - ENT Exam Additional comments: ET tube in place. + blood seen around nasal and oral areas. - Respiratory Exam Additional comments: Intubated on vent PRVC TV 400, PEEP 12, RR 28, 60% FiO2 - Cardiovascular Exam Cardiovascular Exam: afib - irregular. absent: Murmur - GI/Abdominal Exam GI & Abdominal Exam: Soft, Normal Bowel Sounds. absent: Firm, Guarding, Rigid, Tenderness - Extremities Exam Extremities Exam: Normal Inspection - Neurological Exam Additional comments: remains sedated on propofol - Psychiatric Exam Additional comments: intubated - Skin Skin Exam: Dry, Intact Assessment and Plan - Assessment and Plan (Free Text) Assessment: This is 67 yr old male with PMH with CAD s/p 15 stents, COPD, rheumatoid arthritis found to be in hypoxic respiratory distress, ARDS, NSTEMI, community acquired pneumonia and septic shock secondary to urosepsis with positive blood cultures. Patient is noted to have pulmonary edema as well as EMMA (improved). 67 yr old male with PMH with CAD s/p 15 stents, COPD, rheumatoid arthritis found to be in hypoxic respiratory distress, ARDS, NSTEMI, community acquired pneumonia and septic shock secondary to urosepsis with positive blood cultures. Today, pt's hypernatremia continues despite more free water and after starting D5W. BUN/Cr mildly improving: Hypernatremia: - Na 157 today - Increased free water flushes 400 ml q 3 hours per ICU team. C/w D5W at 60 ml/ hr per Nephro. NSTEMI - troponin elevated - Cardiology (Dr. Arias) following, recs appreciated * Unstable for Cardiac cath * Echo: dilated LV, EF 25-30%, hypokinesis of LV, trace AR, mild/mod MR, mild TR, dilated IVC - ASA - heparin drip held. Started Lovenox - Hold brilinta due to anemia, per Cardio - holding Beta blockers 2/2 hypotension - holding crestor 2/2 rhabdo and elevated LFTs Respiratory failure - pneumonia vs acute decompensated CHF vs. history of COPD - intubated and sedated on precedex. Discontinued fentanyl and propofol - on dobutamine drip, midodrine - CT chest: New alveolar and interstitial infiltrates are seen in both lower lobes as well as the right upper lobe. This is superimposed upon chronic emphysematous changes - ABG showing respiratory alkalosis - negative for MRSA - flu negative - legionella negative - duonebs OLMAN and PRN - solumedrol 50 mg IV Q12 - lasix 60 IV q 8h - Merrem and Doxy D6; Zyvox D2, Mycamine, Hypokalemia: - K 3.5, will replete - Cont to monitor EMMA - Lasix prn - will monitor - nephro on board. appreciate recs UTI - Repeat blood and urine culture negative - UA showing elevated leuk esterase and nitrate - blood cultures showing E. coli - urine culture showing E. coli - abx as above - repeat cultured and repeat procalcitonin in light of spiking temps E. coli bacteremia - blood and urine cultures positive for E. coli - Repeat blood and urine prelim negative - Sputum: + yeast - ID consulted, recs appreciated - abx as above Left inguinal hernia - CT abd/pel:There is a 5 cm diameter left inguinal hernia that contains a portion of the sigmoid colon. There is no obstruction - not causing problems at this time Hypotension - dobutamine gtt, and midodrine - Maintain MAP above 65 - holding beta adali for now Immunocompromised 2/2 RA - Bactrim for PCP ppx discontinued due to renal impairment PPX * GI protonix * DVT heparin drip Discussed with Dr. Barroso. <Gracia Barroso - Last Filed: 09/17/17 11:06> Objective - Vital Signs/Intake and Output Vital Signs (last 24 hours): Temp Pulse Resp BP Pulse Ox 99.8 F H 91 H 31 H 128/62 98 09/17/17 04:00 09/17/17 06:10 09/17/17 08:07 09/17/17 09:41 09/17/17 08:07 Intake and Output: 09/17/17 09/17/17 06:59 18:59 Intake Total 2421.5 1.5 Output Total 2650 Balance -228.5 1.5 - Medications Medications: Current Medications Albuterol/Ipratropium (Duoneb 3 Mg/0.5 Mg (3 Ml) Ud) 3 ml IH Q2H PRN PRN Reason: Shortness of Breath Last Admin: 09/07/17 04:25 Dose: 3 ml Albuterol/Ipratropium (Duoneb 3 Mg/0.5 Mg (3 Ml) Ud) 3 ml IH [id number] [facility] Last Admin: 09/17/17 08:07 Dose: 3 ml Artificial Tears (Artificial Tears Opht Oint) 0 gm OU Q12 PRN PRN Reason: Dry eyes Aspirin (Aspirin Chewable) 81 mg PO DAILY [facility] Last Admin: 09/17/17 09:42 Dose: 81 mg Bacitracin (Bacitracin) 0 gm TOP BID [facility] Last Admin: 09/17/17 10:13 Dose: 1 applic Calcium Acetate (Phoslo) 1,334 mg PO WM [facility] Last Admin: 09/17/17 09:44 Dose: Not Given Enoxaparin Sodium (Lovenox) 100 mg SC Q24H OLMAN PRN Reason: Protocol Last Admin: 09/17/17 09:41 Dose: 100 mg Furosemide (Lasix) 40 mg IVP Q12 OLMAN Last Admin: 09/17/17 09:41 Dose: 40 mg Dobutamine HCl/Dextrose (Dobutamine/Dextrose 5% 500mg/250ml) 500 mg in 250 mls @ 7.327 mls/hr IV .Q24H PRN; Protocol; 2.5 MCG/KG/MIN PRN Reason: TITRATE PER PROTOCOL Last Admin: 09/16/17 05:22 Dose: 5 mcg/kg/min, 14.654 mls/hr Dexmedetomidine HCl (Precedex 4 Mcg/Ml (100 Ml)) 400 mcg in 100 mls @ 4.853 mls /hr IV .[id number] PRN; Protocol; 0.2 MCG/KG/HR PRN Reason: Agitation Last Admin: 09/17/17 05:32 Dose: 1.2 mcg/kg/hr, 29.121 mls/hr Linezolid (Zyvox 600mg/300ml D5w) 600 mg in 300 mls @ 200 mls/hr IVPB Q12 OLMAN PRN Reason: Protocol Stop: 09/21/17 10:01 Last Admin: 09/17/17 09:41 Dose: 200 mls/hr Propofol (Diprivan) 1,000 mg in 100 mls @ 2.912 mls/hr IV .Q24H PRN; Protocol; 5 MCG/KG/MIN PRN Reason: TITRATE PER MD ORDER Last Admin: 09/17/17 09:45 Dose: 40 mcg/kg/min, 23.297 mls/hr Dextrose (Dextrose 5% In Water 1000 Ml) 1,000 mls @ 60 mls/hr IV .[id number] OLMAN Last Admin: 09/17/17 06:03 Dose: 60 mls/hr Micafungin Sodium 100 mg/ (Dextrose) 100 mls @ 100 mls/hr IV DAILY OLMAN PRN Reason: Protocol Stop: 09/22/17 10:01 Last Admin: 09/17/17 09:43 Dose: 100 mls/hr Doxycycline Hyclate 100 mg/ (Dextrose) 100 mls @ 100 mls/hr IVPB Q12 OLMAN PRN Reason: Protocol Stop: 09/19/17 22:01 Last Admin: 09/17/17 09:43 Dose: 100 mls/hr Meropenem 1 gm/ Dextrose 100 mls @ 100 mls/hr IVPB Q12 OLMAN PRN Reason: Protocol Stop: 09/23/17 10:16 Last Admin: 09/17/17 09:43 Dose: 100 mls/hr Insulin Human Regular (Humulin R High) 0 units SC Q4H OLMAN PRN Reason: Protocol Morphine Sulfate (Morphine) 4 mg IVP Q6H PRN PRN Reason: Agitation Last Admin: 09/17/17 06:00 Dose: 4 mg Nicotine (Nicoderm Cq) 1 patch TD DAILY [facility] Last Admin: 09/17/17 09:48 Dose: 1 patch Pantoprazole Sodium (Protonix Inj) 40 mg IVP BID [facility] Last Admin: 09/17/17 09:42 Dose: 40 mg Ticagrelor (Brilinta) 90 mg PO BID [facility] Last Admin: 09/12/17 10:29 Dose: 90 mg Vitamin A (Vitamin A & D Oint Ud Foilpak) 1 ea TOP Q8 PRN PRN Reason: Dry skin Last Admin: 09/16/17 10:02 Dose: 1 ea - Labs Labs: 09/17/17 05:00 09/17/17 05:00 PT 15.3 SECONDS (9.4-12.5) H 09/14/17 16:20 INR 1.33 (0.93-1.08) H 09/14/17 16:20 APTT 45.1 Seconds (25.1-36.5) H 09/15/17 08:15 Attending/Attestation - Attestation I have personally seen and examined this patient.: Yes I have fully participated in the care of the patient.: Yes I have reviewed all pertinent clinical information, including history, physical exam and plan: Yes Notes (Text): 09/17/17 11:04 Patient was seen and examined with medical office asst. 67 yrs old male with PMHx of CAD,SP Multiple cardiac stents,CHF with systolic dysfunction. Rheumatoid arthiristis and HTN was admitted with , NSTEMI, and gram negative bacteremia, went into respiratory failure, ARDS, septic/ cardiogenic shock, requiring vasopressors, also has AF Patient is intubated, sedated, off Levophed on Dobutamine for CHF. Patient is still hypoxic requiring high FIO2 .Chest X rays showed bilateral alevaolar infiltrates likely combination of Pneumonia with Pulmonary edema, patient is still very hypoxic on high FIO2 Critical care team is managing respiratory failure. Sepsis on IV antibiotics as per ID for Pneumonia and Ecoli Bacteremia.Repeat blood cultures are negative.Patient is still having low grade fever.Sputum cultures showed yeast, started on antifungal by ID. Renal failure, Creatinin is unchanged, had good urine out put, we will monitor BUN and creatinin with diuresis. Hypernatremic, on free water via NGT Anemia,Hemoglobin is stable, on anticoagulation for AF , will monitor hemoglobin . Prognosis is guarded.
--- NOTE | 2017-09-15 14:47 | CP.PCM.PN ---
Subjective - Date & Time of Evaluation Date of Evaluation: 09/15/17 Time of Evaluation: 14:47 - Subjective Subjective: Follow up Nephrology Consultation: please call us if any qs or concerns at Assessment: critical Acute Kidney Injury (N17.9) sec to ATN from sepsis syndrome/cardiogenic shock hyperkalemia hypernatremia azotemia combined respi and metabolic acidosis with lactic acidosis with acute hypoxic hypercapneic respi failure acute CHF with cardiogenic shock with acute VA Urosepsis DM, HTN, CAD s/p stent, COPD with emphysema and active smoker Plan Azotemia stablising today bt hypernatremia persisting continue freewater flushes and d 5 gtt Cr is mildly improved k is stable continue to hold diuretics S: seen and examined remains critically ill on vent Physical Examination: General Appearance: ill appearing, orally intubated Head; Atraumatic, normocephalic ENT: orally intubated EYES: Sclera is anicteric. Neck; supple Lungs: mechanical bs and dec at bases Heart: Increased rate. s1s2 normal. No rub or gallop. Extremities: no edema. No varicose veins Neurological: Patient is sedated Skin: Warm and dry Abdomen: Abdomen is soft. Bowel sounds +. Psych: unable Objective - Vital Signs/Intake and Output Vital Signs (last 24 hours): Temp Pulse Resp BP Pulse Ox 99 F 112 H 32 H 125/72 98 09/15/17 04:00 09/15/17 13:10 09/15/17 08:41 09/15/17 12:46 09/15/17 13:10 Intake and Output: 09/15/17 09/15/17 06:59 18:59 Intake Total 2980 645.0 Output Total 1700 Balance 1280 645.0 - Medications Medications: Current Medications Albuterol/Ipratropium (Duoneb 3 Mg/0.5 Mg (3 Ml) Ud) 3 ml IH Q2H PRN PRN Reason: Shortness of Breath Last Admin: 09/07/17 04:25 Dose: 3 ml Albuterol/Ipratropium (Duoneb 3 Mg/0.5 Mg (3 Ml) Ud) 3 ml IH [id number] OLMAN Last Admin: 09/15/17 13:31 Dose: 3 ml Artificial Tears (Artificial Tears Opht Oint) 0 gm OU Q12 OLMAN Last Admin: 09/15/17 09:53 Dose: 1 gm Aspirin (Aspirin Chewable) 81 mg PO DAILY [facility] Last Admin: 09/15/17 09:52 Dose: 81 mg Atorvastatin Calcium (Lipitor) 40 mg PO DIN [facility] Last Admin: 09/14/17 18:43 Dose: 40 mg Calcium Acetate (Phoslo) 1,334 mg PO WM [facility] Last Admin: 09/15/17 08:18 Dose: 1,334 mg Enoxaparin Sodium (Lovenox) 100 mg SC Q24H OLMAN PRN Reason: Protocol Last Admin: 09/15/17 09:46 Dose: 100 mg Dobutamine HCl/Dextrose (Dobutamine/Dextrose 5% 500mg/250ml) 500 mg in 250 mls @ 7.327 mls/hr IV .Q24H PRN; Protocol; 2.5 MCG/KG/MIN PRN Reason: TITRATE PER PROTOCOL Last Admin: 09/15/17 10:59 Dose: 5 mcg/kg/min, 14.654 mls/hr Insulin Human Regular 100 (units/ Sodium Chloride) 100 mls @ 0.5 mls/hr IV .Q24H PRN; Protocol; 0.5 UNITS/HR PRN Reason: TITRATE PER MD ORDER Last Titration: 09/15/17 10:00 Dose: 2 units/hr, 2 mls/hr Dexmedetomidine HCl (Precedex 4 Mcg/Ml (100 Ml)) 400 mcg in 100 mls @ 4.853 mls /hr IV .[id number] PRN; Protocol; 0.2 MCG/KG/HR PRN Reason: Agitation Last Admin: 09/15/17 13:09 Dose: 0.6 mcg/kg/hr, 14.56 mls/hr Linezolid (Zyvox 600mg/300ml D5w) 600 mg in 300 mls @ 200 mls/hr IVPB Q12 OLMAN PRN Reason: Protocol Stop: 09/21/17 10:01 Last Admin: 09/15/17 09:51 Dose: 200 mls/hr Propofol (Diprivan) 1,000 mg in 100 mls @ 2.912 mls/hr IV .Q24H PRN; Protocol; 5 MCG/KG/MIN PRN Reason: TITRATE PER MD ORDER Last Admin: 09/15/17 08:52 Dose: 40 mcg/kg/min, 23.297 mls/hr Dextrose (Dextrose 5% In Water 1000 Ml) 1,000 mls @ 60 mls/hr IV .[id number] [facility] Last Admin: 09/14/17 19:00 Dose: 60 mls/hr Micafungin Sodium 100 mg/ (Dextrose) 100 mls @ 100 mls/hr IV DAILY OLMAN PRN Reason: Protocol Stop: 09/22/17 10:01 Doxycycline Hyclate 100 mg/ (Dextrose) 100 mls @ 100 mls/hr IVPB Q12 OLMAN PRN Reason: Protocol Stop: 09/19/17 22:01 Potassium Chloride (Potassium Chloride 20 Meq/100 Ml) 20 meq in 100 mls @ 50 mls/hr IVPB ONCE ONE Stop: 09/15/17 15:21 Lorazepam (Ativan) 2 mg IVP Q3H PRN; Protocol PRN Reason: Anxiety Midodrine (Proamatine) 10 mg PO TID [facility] Last Admin: 09/14/17 18:44 Dose: 10 mg Nicotine (Nicoderm Cq) 1 patch TD DAILY [facility] Last Admin: 09/15/17 13:11 Dose: 1 patch Pantoprazole Sodium (Protonix Inj) 40 mg IVP BID [facility] Last Admin: 09/15/17 09:51 Dose: 40 mg Ticagrelor (Brilinta) 90 mg PO BID [facility] Last Admin: 09/12/17 10:29 Dose: 90 mg Vitamin A (Vitamin A & D Oint Ud Foilpak) 1 ea TOP Q8 PRN PRN Reason: Dry skin - Labs Labs: 09/15/17 05:00 09/15/17 05:00 PT 15.3 SECONDS (9.4-12.5) H 09/14/17 16:20 INR 1.33 (0.93-1.08) H 09/14/17 16:20 APTT 45.1 Seconds (25.1-36.5) H 09/15/17 08:15
[2017-09-15] MEDS ORDERED: Morphine 4 mg/ml ISec IVP PRN (17:12)
[2017-09-15] MEDS ORDERED: Morphine 5 MG/ML SYRINGE IVP PRN (17:49)
[2017-09-15] MEDS: Morphine 5 MG/ML SYRINGE IVP PRN (18:02)
--- NOTE | 2017-09-15 18:51 | PN ---
DATE: 09/15/2017 SUBJECTIVE: The patient is seen and examined at bedside. He is comfortable. He is on PRVC. He tolerated pressure support trial for about 20 minutes; however, became agitated and had to be put back on PRVC. His current setting is 400/28/10/50%; on that setting, his O2 saturation is 98, end-tidal CO2 on the monitor is 38, blood pressure 125/72, heart rate 103, respiratory rate 13. His temperature is 100.6. He is on dobutamine 5 mcg/kg per minute. He is on insulin 2 units per hour. He is on Precedex 0.60 mcg/kg per hour. The patient received one dose of 5 mg IV morphine (the patient has history of rheumatoid arthritis and has some chronic pain). The patient was also started on nicotine patch because he is active/avid smoker and nicotine withdrawal may play some role in his agitation as well. At present time, the patient is comfortable. His urine output over last night was reportedly 3600. Chest x-ray look a little bit worse on the right, lower lobe infiltrate. PHYSICAL EXAMINAION ENT: Head and neck atraumatic. LUNGS: Decreased breath sounds bilaterally with some crackles bibasilarly. HEART: Irregular rate and rhythm. S1, S2 distant. ABDOMEN: Soft, nontender, nondistended. The patient is not on enteral feeds due to significant elevation of BUN which, however, is trending down at present time. MUSCULOSKELETAL: Trace bilateral pedal and ankle edema. NEUROLOGICAL: The patient was able to move upper and lower extremities during sedation vacation earlier today. SKIN: Moist. PSYCHIATRIC: The patient was able to follow commands during sedation vacation. LABORATORY DATA WBC 16.5 down from 17.1, hemoglobin 8, platelet count 216,000. Sodium 157, potassium 3.5, chloride 114, carbon dioxide 29, BUN 112 down from 120, creatinine 1.5 down from 1.9, glucose 158, AST 37, ALT 54. Procalcitonin 4.89 MEDICATIONS: DuoNeb p.r.n. and DuoNeb every 6 hours, aspirin, Lipitor, PhosLo, Precedex, D5 60 mL/hour, dobutamine, doxycycline, Lovenox 100 mg subcu q. 24, Lasix 40 mg IV daily, insulin drip, Ativan p.r.n., meropenem, micafungin, midodrine 10 mg p.o. t.i.d., nicotine patch, Protonix, Brilinta, Zyvox. ASSESSMENT AND PLAN: This is a 67-year-old gentleman with history of rheumatoid arthritis related interstitial lung disease who presented with cardiogenic and non-cardiogenic pulmonary edema resulting in hypoxemic respiratory failure secondary to non-STEMI and septic shock respectively. At present time, the patient showed signs of improvement in his gas exchange parameters and renal function. However, he still remains intubated and requires sedation. Neurological: The patient is on Precedex 0.6 mcg/kg per hour. He is on morphine p.r.n. Reportedly, the patient has a problem with chronic pain and we hope that control of his pain with morphine p.r.n. would improve his comfort level. The patient is also active smoker and we will start nicotine patch to see if that will help with agitation during sedation vacation and weaning trials. The patient is following commands and moving upper and lower extremities during sedation vacation and that is encouraging. Pulmonary: The patient's chest x-ray looks slightly worse than yesterday; however, it may lag behind clinical picture. We will continue with striking balance between conservative fluid management to optimize respiratory status and euvolemia to avoid renal hypoperfusion. At present time, we slowed down on diuresis to correct sodium and BUN. We will continue with protective lung ventilation strategy with tidal volume of 60 mL per predicted body weight and plateau pressure less than 30. We will continue with head of bed elevated more than 35 degrees. Oral hygiene and VAP bundle. Despite slight worsening of the chest imaging, the patient did tolerate some pressure support trial earlier today for short period of time. His FiO2 went down to 50% and PEEP down to 10 cm of water from 12 cm of water. Cardiovascular: The patient has been recovering from cardiogenic shock and we will continue with dobutamine 5 mcg/kg per minute. We will continue with gentle diuresis with Lasix. If hemodynamics allow, we will attempt at stopping midodrine and proceed with p.o. hydralazine and isosorbide mononitrate for afterload reduction. Meanwhile, afterload reduction is provided with Precedex and to some degree, positive pressure ventilation. We will continue with dual antiplatelet therapy, therapeutic anticoagulation and statins. The patient does have severe left ventricular systolic dysfunction. Cardiology is following the patient; however, no plan for PCI at present time. Gastrointestinal: We will continue with head of bed elevated more than 35 degrees. Once BUN stabilizes, we will restart enteral nutrition which the patient tolerated in the past well. We will continue with GI prophylaxis. Infectious Disease: The patient does have low grade fever. Micafungin and linezolid was added yesterday to doxycycline and meropenem. His white cell count is trending down and he maintains clinical stability. His repeat blood culture was negative suggesting clearance of bacteremia. 1,2-xlip-E-Glucan as well as galactomannan were ordered and results are pending. Urine for Legionella and streptococcal antigens are negative. Influenza serology is negative as well. Endocrine: We will continue to maintain blood glucose within 140 to 180 range according to NICE-SUGAR trial. The patient is on insulin drip. Steroids are on hold due to substantial elevation in BUN (that was discussed with Nephrology service as well). Renal: The patient's kidney function continued to improve. He is making good urine despite remaining slightly positive fluid balance pickard. His creatinine went down to 1.5 from 1.9. We will continue to maintain euvolemia and euglycemia for additional nephro-protective effect. We will continue to maintain mean arterial pressure more than 65. His BUN also is trending down. I will continue with GI prophylaxis. Increase free water flushes , holding lasix-->to correct Na. Holding feeds until BUN below 90, avoid hypoglycemia ccm time 40 min Kwasi Lee MD [email or web address]
--- NOTE | 2017-09-15 19:30 | PN ---
DATE: 09/15/2017 REASON FOR CONSULTATION AND FOLLOWUP: Cardiac evaluation, [id number] elevation myocardial infarction, gram-negative sepsis, septic shock, intubated, respiratory failure, multiorgan dysfunction requiring vasopressors. SUBJECTIVE: The patient remains still intubated, on high oxygen on vent, on Dobutrex as well as heparin and insulin drip, sedated and vented. PHYSICAL EXAMINATION: As follows: VITAL SIGNS: Temperature afebrile, heart rate 112, blood pressure 130/80. HEENT: PERRLA. EOMs intact. NECK: Supple. No carotid bruit or thyromegaly. CHEST: Clear to auscultation. HEART: S1, S2 irregular. ABDOMEN: Soft. EXTREMITIES: Clubbing and cyanosis negative. LABORATORY DATA: WBC 16.5, hemoglobin 8, hematocrit 25.7 and platelet count 216. Chemistry shows sodium 157, potassium 3.5, chloride 114, carbon dioxide 29, anion gap of 17, BUN , creatinine is 1.5, total protein 5.0, albumin 2.8. 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 RECOMMENDATIONS: Increase free fluid, continue antibiotics. We will discontinue heparin and change to Lovenox 1 mg/kg q. 24 according to renal adjusted dose, creatinine clearance 50 mL. For atrial fibrillation, continue gentle Dobutrex, try to keep negative fluid balance, increase free fluid to 400 mL q. 6, try to wean off the ventilator as tolerated. If prolonged intubation is required, consider tracheostomy. Discussed with Dr. Lee, discussed with Dr. Ramos. Overall patient's condition is critical. Long-term prognosis is guarded. We will follow with you. Thank you, for providing us the opportunity in taking care of patient, Blanco Russell. Gracia Arias MD
[2017-09-15] MEDS: DEXTROSE 5% IVPB SCH (22:00)
[2017-09-15] MEDS: DOXYCYCLINE HYCLATE IVPB SCH (22:00)
[2017-09-15] MEDS: WATER IVPB SCH (22:00)
[2017-09-16 03:35] LABS: ARTERIAL BLOOD GAS HCO3 32.7 mmol/L (21-28); ARTERIAL BLOOD GAS HEMOGLOBIN 10.3 g/dL (11.7-17.4); ARTERIAL BLOOD GAS O2 CAPACITY 14.1 mL/dl (16-24); ARTERIAL BLOOD GAS O2 CONTENT 13.2 ML/dl (15-23); ARTERIAL BLOOD GAS O2 SAT 93.9 % (95-98); ARTERIAL BLOOD GAS PCO2 54 mm/Hg (35-45); ARTERIAL BLOOD GAS PH 7.39 (7.35-7.45); ARTERIAL BLOOD GAS TCO2 34.4 mmol.L (22-28)
[2017-09-16] MEDS: Dexmedetomidine 400mcg/100mL 400 MCG/100 ML BOTTLE IV PRN ×4 (05:05→20:47)
[2017-09-16] MEDS: DOBUTamine 500mg/250ml D5W 500 MG/250 ML BAG IV PRN (05:22)
[2017-09-16] MEDS: Albuterol-Ipratrop 3 mg / 0.5 (3 ml) UD IH SCH ×3 (07:02→21:00)
[2017-09-16 07:05] LABS: BASO # 0.02 K/mm3 (0.0-2.0); BASO % 0.1 % (0.0-3.0); EOS # 0.1 (0.0-0.7); EOS % 0.8 % (1.5-5.0); GRAN # 13.2 (1.4-6.5); GRAN % 82.8 % (50.0-68.0); HEMOGLOBIN 8.1 g/dL (14.0-18.0); LYMPH # 1.6 (1.2-3.4); LYMPH % 10.3 % (22.0-35.0); MEAN CELL VOLUME 98.5 fl (80.0-105.0); MEAN CORPUSCULAR HEMOGLOBIN 29.9 pg (25.0-35.0); MEAN CORPUSCULAR HGB CONC 30.3 g/dl (31.0-37.0); RBC 2.71 10^6/uL (3.5-6.1); RED CELL DISTRIBUTION WIDTH 17.1 % (11.5-14.5); WHITE BLOOD COUNT 15.9 10^3/ul (4.5-11.0)
[2017-09-16 07:58] LABS: ALBUMIN 2.9 g/dL (3.0-4.8); CALCIUM 9.2 mg/dL (8.4-10.5)
--- NOTE | 2017-09-16 09:53 | CP.PCM.PN ---
Subjective - Date & Time of Evaluation Date of Evaluation: 09/16/17 Time of Evaluation: 09:50 - Subjective Subjective: Follow up Nephrology Consultation: please call us if any qs or concerns at [phone] Assessment: critical Acute Kidney Injury (N17.9) sec to ATN from sepsis syndrome/cardiogenic shock hyperkalemia hypernatremia alkalemia azotemia combined respi and metabolic acidosis with lactic acidosis with acute hypoxic hypercapneic respi failure acute CHF with cardiogenic shock with acute RI Urosepsis DM, HTN, CAD s/p stent, COPD with emphysema and active smoker Plan Azotemia improved continue free water flushes diuretics restarted today - hco3 elevated and na elevated - hco3 partly elevated from hypercapnia but also likely from met alkalois from intravascular volume depletion. If cr/bun further worsened by tomorrow am please hold diuretics again. Could consider albumin with lasix to see if help mobilize. cont phoslo, recheck phos remains critically ill discussed w/ icu team S: seen and examined remains critically ill on vent Physical Examination: General Appearance: ill appearing, orally intubated Head; Atraumatic, normocephalic ENT: orally intubated EYES: Sclera is anicteric. Neck; supple Lungs: mechanical bs and dec at bases R > L Heart: Increased rate. s1s2 normal. No rub or gallop. Extremities: no edema. No varicose veins Neurological: Patient is sedated Skin: Warm and dry Abdomen: Abdomen is soft. Bowel sounds +. Psych: unable cxr: reviewed Objective - Vital Signs/Intake and Output Vital Signs (last 24 hours): Temp Pulse Resp BP Pulse Ox 100 F H 103 H 30 H 134/67 96 09/16/17 04:00 09/16/17 05:30 09/16/17 08:07 09/16/17 04:46 09/16/17 08:07 Intake and Output: 09/16/17 09/16/17 06:59 18:59 Intake Total 2755 100 Output Total 900 Balance 1855 100 - Medications Medications: Current Medications Albuterol/Ipratropium (Duoneb 3 Mg/0.5 Mg (3 Ml) Ud) 3 ml IH Q2H PRN PRN Reason: Shortness of Breath Last Admin: 09/07/17 04:25 Dose: 3 ml Albuterol/Ipratropium (Duoneb 3 Mg/0.5 Mg (3 Ml) Ud) 3 ml IH [id number] [facility] Last Admin: 09/16/17 07:02 Dose: 3 ml Artificial Tears (Artificial Tears Opht Oint) 0 gm OU Q12 [facility] Last Admin: 09/15/17 22:00 Dose: 1 gm Aspirin (Aspirin Chewable) 81 mg PO DAILY [facility] Last Admin: 09/15/17 09:52 Dose: 81 mg Calcium Acetate (Phoslo) 1,334 mg PO WM [facility] Last Admin: 09/16/17 07:50 Dose: 1,334 mg Enoxaparin Sodium (Lovenox) 100 mg SC Q24H [facility] PRN Reason: Protocol Last Admin: 09/15/17 09:46 Dose: 100 mg Furosemide (Lasix) 40 mg IVP Q12 [facility] Dobutamine HCl/Dextrose (Dobutamine/Dextrose 5% 500mg/250ml) 500 mg in 250 mls @ 7.327 mls/hr IV .Q24H PRN; Protocol; 2.5 MCG/KG/MIN PRN Reason: TITRATE PER PROTOCOL Last Admin: 09/16/17 05:22 Dose: 5 mcg/kg/min, 14.654 mls/hr Insulin Human Regular 100 (units/ Sodium Chloride) 100 mls @ 0.5 mls/hr IV .Q24H PRN; Protocol; 0.5 UNITS/HR PRN Reason: TITRATE PER MD ORDER Last Titration: 09/16/17 05:09 Dose: 1 units/hr, 1 mls/hr Dexmedetomidine HCl (Precedex 4 Mcg/Ml (100 Ml)) 400 mcg in 100 mls @ 4.853 mls /hr IV .[id number] PRN; Protocol; 0.2 MCG/KG/HR PRN Reason: Agitation Last Admin: 09/16/17 08:44 Dose: 1.2 mcg/kg/hr, 29.121 mls/hr Linezolid (Zyvox 600mg/300ml D5w) 600 mg in 300 mls @ 200 mls/hr IVPB Q12 [facility] PRN Reason: Protocol Stop: 09/21/17 10:01 Last Admin: 09/15/17 21:25 Dose: 200 mls/hr Propofol (Diprivan) 1,000 mg in 100 mls @ 2.912 mls/hr IV .Q24H PRN; Protocol; 5 MCG/KG/MIN PRN Reason: TITRATE PER MD ORDER Last Admin: 09/15/17 08:52 Dose: 40 mcg/kg/min, 23.297 mls/hr Dextrose (Dextrose 5% In Water 1000 Ml) 1,000 mls @ 60 mls/hr IV .[id number] [facility] Last Admin: 09/16/17 04:50 Dose: 60 mls/hr Micafungin Sodium 100 mg/ (Dextrose) 100 mls @ 100 mls/hr IV DAILY [facility] PRN Reason: Protocol Stop: 09/22/17 10:01 Doxycycline Hyclate 100 mg/ (Dextrose) 100 mls @ 100 mls/hr IVPB Q12 [facility] PRN Reason: Protocol Stop: 09/19/17 22:01 Last Admin: 09/15/17 22:00 Dose: 100 mls/hr Morphine Sulfate (Morphine) 4 mg IVP Q6H PRN PRN Reason: Agitation Last Admin: 09/15/17 18:02 Dose: 4 mg Nicotine (Nicoderm Cq) 1 patch TD DAILY [facility] Last Admin: 09/15/17 13:11 Dose: 1 patch Pantoprazole Sodium (Protonix Inj) 40 mg IVP BID [facility] Last Admin: 09/15/17 19:00 Dose: 40 mg Ticagrelor (Brilinta) 90 mg PO BID [facility] Last Admin: 09/12/17 10:29 Dose: 90 mg Vitamin A (Vitamin A & D Oint Ud Foilpak) 1 ea TOP Q8 PRN PRN Reason: Dry skin - Labs Labs: 09/16/17 06:41 09/16/17 06:41 PT 15.3 SECONDS (9.4-12.5) H 09/14/17 16:20 INR 1.33 (0.93-1.08) H 09/14/17 16:20 APTT 45.1 Seconds (25.1-36.5) H 09/15/17 08:15
[2017-09-16] MEDS: Micafungin 100 MG in Dextrose 5% In Water 100 ML IV SCH (10:01)
[2017-09-16] MEDS: Enoxaparin 100 mg Syringe SC SCH (10:01)
[2017-09-16] MEDS: DOXYCYCLINE HYCLATE IVPB SCH ×2 (10:02→21:48)
[2017-09-16] MEDS: Vitamins A & D Oint UD Foilpak TOP PRN (10:02)
[2017-09-16] MEDS: DEXTROSE 5% IVPB SCH ×2 (10:02→21:48)
[2017-09-16] MEDS: WATER IVPB SCH ×2 (10:02→21:48)
[2017-09-16] MEDS: Linezolid 600 mg in D5W 300 ml 600 MG/300 ML BAG IVPB SCH ×2 (10:04→21:27)
[2017-09-16] MEDS: Mineral Oil/Petrolatum Opht Oint(3.5 gm) OU SCH ×2 (10:05→22:12)
--- NOTE | 2017-09-16 10:05 | CP.PCM.PN ---
Subjective - Date & Time of Evaluation Date of Evaluation: 09/16/17 Time of Evaluation: 09:40 - Subjective Subjective: Still having low grade temperatures, still on the ventilator but FiO2 down to 50 % from 60%. Objective - Vital Signs/Intake and Output Vital Signs (last 24 hours): Temp Pulse Resp BP Pulse Ox 100 F H 103 H 32 H 134/67 97 09/16/17 04:00 09/16/17 05:30 09/15/17 08:41 09/16/17 04:46 09/16/17 05:30 Intake and Output: 09/15/17 09/16/17 18:59 06:59 Intake Total 3841.0 2755 Output Total 1100 900 Balance 2741.0 1855 - Medications Medications: Current Medications Albuterol/Ipratropium (Duoneb 3 Mg/0.5 Mg (3 Ml) Ud) 3 ml IH Q2H PRN PRN Reason: Shortness of Breath Last Admin: 09/07/17 04:25 Dose: 3 ml Albuterol/Ipratropium (Duoneb 3 Mg/0.5 Mg (3 Ml) Ud) 3 ml IH [id number] [facility] Last Admin: 09/15/17 21:04 Dose: 3 ml Artificial Tears (Artificial Tears Opht Oint) 0 gm OU Q12 [facility] Last Admin: 09/15/17 22:00 Dose: 1 gm Aspirin (Aspirin Chewable) 81 mg PO DAILY [facility] Last Admin: 09/15/17 09:52 Dose: 81 mg Atorvastatin Calcium (Lipitor) 40 mg PO DIN [facility] Last Admin: 09/15/17 18:04 Dose: 40 mg Calcium Acetate (Phoslo) 1,334 mg PO WM [facility] Last Admin: 09/15/17 17:48 Dose: 1,334 mg Enoxaparin Sodium (Lovenox) 100 mg SC Q24H [facility] PRN Reason: Protocol Last Admin: 09/15/17 09:46 Dose: 100 mg Dobutamine HCl/Dextrose (Dobutamine/Dextrose 5% 500mg/250ml) 500 mg in 250 mls @ 7.327 mls/hr IV .Q24H PRN; Protocol; 2.5 MCG/KG/MIN PRN Reason: TITRATE PER PROTOCOL Last Admin: 09/16/17 05:22 Dose: 5 mcg/kg/min, 14.654 mls/hr Insulin Human Regular 100 (units/ Sodium Chloride) 100 mls @ 0.5 mls/hr IV .Q24H PRN; Protocol; 0.5 UNITS/HR PRN Reason: TITRATE PER MD ORDER Last Titration: 09/16/17 05:09 Dose: 1 units/hr, 1 mls/hr Dexmedetomidine HCl (Precedex 4 Mcg/Ml (100 Ml)) 400 mcg in 100 mls @ 4.853 mls /hr IV .[id number] PRN; Protocol; 0.2 MCG/KG/HR PRN Reason: Agitation Last Admin: 09/16/17 05:05 Dose: 0.8 mcg/kg/hr, 19.414 mls/hr Linezolid (Zyvox 600mg/300ml D5w) 600 mg in 300 mls @ 200 mls/hr IVPB Q12 [facility] PRN Reason: Protocol Stop: 09/21/17 10:01 Last Admin: 09/15/17 21:25 Dose: 200 mls/hr Propofol (Diprivan) 1,000 mg in 100 mls @ 2.912 mls/hr IV .Q24H PRN; Protocol; 5 MCG/KG/MIN PRN Reason: TITRATE PER MD ORDER Last Admin: 09/15/17 08:52 Dose: 40 mcg/kg/min, 23.297 mls/hr Dextrose (Dextrose 5% In Water 1000 Ml) 1,000 mls @ 60 mls/hr IV .[id number] [facility] Last Admin: 09/16/17 04:50 Dose: 60 mls/hr Micafungin Sodium 100 mg/ (Dextrose) 100 mls @ 100 mls/hr IV DAILY [facility] PRN Reason: Protocol Stop: 09/22/17 10:01 Doxycycline Hyclate 100 mg/ (Dextrose) 100 mls @ 100 mls/hr IVPB Q12 [facility] PRN Reason: Protocol Stop: 09/19/17 22:01 Last Admin: 09/15/17 22:00 Dose: 100 mls/hr Midodrine (Proamatine) 10 mg PO TID [facility] Last Admin: 09/15/17 17:48 Dose: 10 mg Morphine Sulfate (Morphine) 4 mg IVP Q6H PRN PRN Reason: Agitation Last Admin: 09/15/17 18:02 Dose: 4 mg Nicotine (Nicoderm Cq) 1 patch TD DAILY [facility] Last Admin: 09/15/17 13:11 Dose: 1 patch Pantoprazole Sodium (Protonix Inj) 40 mg IVP BID [facility] Last Admin: 09/15/17 19:00 Dose: 40 mg Ticagrelor (Brilinta) 90 mg PO BID [facility] Last Admin: 09/12/17 10:29 Dose: 90 mg Vitamin A (Vitamin A & D Oint Ud Foilpak) 1 ea TOP Q8 PRN PRN Reason: Dry skin - Labs Labs: 09/15/17 05:00 09/15/17 05:00 PT 15.3 SECONDS (9.4-12.5) H 09/14/17 16:20 INR 1.33 (0.93-1.08) H 09/14/17 16:20 APTT 45.1 Seconds (25.1-36.5) H 09/15/17 08:15 - Constitutional Appears: Chronically Ill, Other (intubated) - Head Exam Head Exam: NORMAL INSPECTION - ENT Exam Additional comments: Et tube in place - Respiratory Exam Respiratory Exam: Decreased Breath Sounds - Cardiovascular Exam Cardiovascular Exam: +S1, +S2 - GI/Abdominal Exam GI & Abdominal Exam: Soft. absent: Tenderness - Extremities Exam Additional comments: left arm PICC line in place Assessment and Plan - Assessment and Plan (Free Text) Plan: Assessment severe sepsis S/P shock with VDRF and renal failure due to E. coli bacteremia, consider urine as the source, on top of possible myocardial infarction and possible pneumonia, now also with pulmonary edema, slowly decreasing - new onset fever R/O worsening pneumonia history of acute cholecystitis, S/P laparoscopic cholecystectomy HTN atrial fibrillation with history of cardioversion rheumatoid arthritis COPD dyslipidemia history of pancreatitis S/P left ACL repair CAD S/P PCI S/P left toe amputation Plan continue Merrem day 7 and Doxycycline (for pneumonia) and continue Zyvox (day 3 ) and added Mycamine day 3 as well since he is on chronic immunosuppression for his rheumatoid arthritis; MRSA nares is negative; urine Legionella Ag is negative; rapid flu test is negative; repeat blood cx from the central line are negative, follow up Fungitell and Galactomannan tests, follow up sputum cx will continue to monitor clinically overall prognosis is guarded at best
[2017-09-16] MEDS: Meropenem 1 GM in Sodium Chloride 0.9% 100 ML IVPB SCH ×2 (10:18→21:46)
--- NOTE | 2017-09-16 10:25 | CP.PCM.PN ---
<Spring Li - Last Filed: 09/16/17 10:22> Subjective - Date & Time of Evaluation Date of Evaluation: 09/16/17 Time of Evaluation: 10:23 - Subjective Subjective: ICU Progress Note for Billy Benavides PGY2 Patient seen and examined at bedside. As per nursing staff, there were no acute events. Patient is intubated, on sedation. He is arousable and following commands. Objective - Vital Signs/Intake and Output Vital Signs (last 24 hours): Temp Pulse Resp BP Pulse Ox 100 F H 103 H 30 H 139/78 96 09/16/17 04:00 09/16/17 05:30 09/16/17 08:07 09/16/17 09:59 09/16/17 08:07 Intake and Output: 09/16/17 09/16/17 06:59 18:59 Intake Total 2755 122 Output Total 900 Balance 1855 122 - Medications Medications: Current Medications Albuterol/Ipratropium (Duoneb 3 Mg/0.5 Mg (3 Ml) Ud) 3 ml IH Q2H PRN PRN Reason: Shortness of Breath Last Admin: 09/07/17 04:25 Dose: 3 ml Albuterol/Ipratropium (Duoneb 3 Mg/0.5 Mg (3 Ml) Ud) 3 ml IH [id number] [facility] Last Admin: 09/16/17 07:02 Dose: 3 ml Artificial Tears (Artificial Tears Opht Oint) 0 gm OU Q12 [facility] Last Admin: 09/16/17 10:05 Dose: 1 gm Aspirin (Aspirin Chewable) 81 mg PO DAILY [facility] Last Admin: 09/16/17 10:05 Dose: 81 mg Calcium Acetate (Phoslo) 1,334 mg PO WM [facility] Last Admin: 09/16/17 07:50 Dose: 1,334 mg Enoxaparin Sodium (Lovenox) 100 mg SC Q24H [facility] PRN Reason: Protocol Last Admin: 09/16/17 10:01 Dose: 100 mg Furosemide (Lasix) 40 mg IVP Q12 [facility] Last Admin: 09/16/17 09:59 Dose: 40 mg Dobutamine HCl/Dextrose (Dobutamine/Dextrose 5% 500mg/250ml) 500 mg in 250 mls @ 7.327 mls/hr IV .Q24H PRN; Protocol; 2.5 MCG/KG/MIN PRN Reason: TITRATE PER PROTOCOL Last Admin: 09/16/17 05:22 Dose: 5 mcg/kg/min, 14.654 mls/hr Insulin Human Regular 100 (units/ Sodium Chloride) 100 mls @ 0.5 mls/hr IV .Q24H PRN; Protocol; 0.5 UNITS/HR PRN Reason: TITRATE PER MD ORDER Last Titration: 09/16/17 10:15 Dose: 1.5 units/hr, 1.5 mls/hr Dexmedetomidine HCl (Precedex 4 Mcg/Ml (100 Ml)) 400 mcg in 100 mls @ 4.853 mls /hr IV .[id number] PRN; Protocol; 0.2 MCG/KG/HR PRN Reason: Agitation Last Admin: 09/16/17 08:44 Dose: 1.2 mcg/kg/hr, 29.121 mls/hr Linezolid (Zyvox 600mg/300ml D5w) 600 mg in 300 mls @ 200 mls/hr IVPB Q12 [facility] PRN Reason: Protocol Stop: 09/21/17 10:01 Last Admin: 09/16/17 10:04 Dose: 200 mls/hr Propofol (Diprivan) 1,000 mg in 100 mls @ 2.912 mls/hr IV .Q24H PRN; Protocol; 5 MCG/KG/MIN PRN Reason: TITRATE PER MD ORDER Last Admin: 09/15/17 08:52 Dose: 40 mcg/kg/min, 23.297 mls/hr Dextrose (Dextrose 5% In Water 1000 Ml) 1,000 mls @ 60 mls/hr IV .[id number] [facility] Last Admin: 09/16/17 04:50 Dose: 60 mls/hr Micafungin Sodium 100 mg/ (Dextrose) 100 mls @ 100 mls/hr IV DAILY [facility] PRN Reason: Protocol Stop: 09/22/17 10:01 Last Admin: 09/16/17 10:01 Dose: 100 mls/hr Doxycycline Hyclate 100 mg/ (Dextrose) 100 mls @ 100 mls/hr IVPB Q12 [facility] PRN Reason: Protocol Stop: 09/19/17 22:01 Last Admin: 09/16/17 10:02 Dose: 100 mls/hr Meropenem 1 gm/ Sodium (Chloride) 100 mls @ 100 mls/hr IVPB Q12 [facility] PRN Reason: Protocol Stop: 09/23/17 10:16 Morphine Sulfate (Morphine) 4 mg IVP Q6H PRN PRN Reason: Agitation Last Admin: 09/15/17 18:02 Dose: 4 mg Nicotine (Nicoderm Cq) 1 patch TD DAILY [facility] Last Admin: 09/15/17 13:11 Dose: 1 patch Pantoprazole Sodium (Protonix Inj) 40 mg IVP BID [facility] Last Admin: 09/16/17 10:00 Dose: 40 mg Ticagrelor (Brilinta) 90 mg PO BID [facility] Last Admin: 09/12/17 10:29 Dose: 90 mg Vitamin A (Vitamin A & D Oint Ud Foilpak) 1 ea TOP Q8 PRN PRN Reason: Dry skin Last Admin: 09/16/17 10:02 Dose: 1 ea - Labs Labs: 09/16/17 06:41 09/16/17 06:41 PT 15.3 SECONDS (9.4-12.5) H 09/14/17 16:20 INR 1.33 (0.93-1.08) H 09/14/17 16:20 APTT 45.1 Seconds (25.1-36.5) H 09/15/17 08:15 - Constitutional Appears: No Acute Distress, Chronically Ill - Head Exam Head Exam: ATRAUMATIC, NORMAL INSPECTION, NORMOCEPHALIC - Eye Exam Eye Exam: Normal appearance, PERRL Pupil Exam: NORMAL ACCOMODATION, PERRL - ENT Exam ENT Exam: Mucous Membranes Moist - Neck Exam Neck Exam: Full ROM - Respiratory Exam Respiratory Exam: Rhonchi (bilaterally ), NORMAL BREATHING PATTERN. absent: Rales, Respiratory Distress - Cardiovascular Exam Cardiovascular Exam: Tachycardia, REGULAR RHYTHM, +S1, +S2. absent: Gallop, Rubs, Murmur - GI/Abdominal Exam GI & Abdominal Exam: Soft, Normal Bowel Sounds. absent: Rigid, Tenderness, Mass , Rebound - Extremities Exam Extremities Exam: Pedal Edema - Neurological Exam Neurological Exam: Alert, Awake, CN II-XII Intact - Skin Skin Exam: Dry, Warm Assessment and Plan - Assessment and Plan (Free Text) Assessment: This is 67 yr old male with PMH with CAD s/p 15 stents, COPD, rheumatoid arthritis found to be in hypoxic respiratory distress, ARDS, NSTEMI, community acquired pneumonia and septic shock secondary to urosepsis with positive blood cultures. Patient is noted to have pulmonary edema as well as EMMA (improved). Plan: Neuro: Intubated, Sedated Precedex Morphine prn Will do daily sedation vacation Maintain normothermia CV: NSTEMI with history of a.fib (rate controlled) CXR showed pulmonary edema Lasix 40 increased to q12 Continue Dobutamine and Midodrine, ASA, Lipitor Cardio on consult-recs appreciated Maintain MAP >65 Monitor I&O Pulm: Hypoxic Resp failure, Community acquired pneumonia Pulm vasc congestion on CXR - will increase lasix Intubated on PRVC- will wean as tolerated Titrate to maintain spO2>92% Protective Vent strategy- HOB elevated, aspiration precaution Duoneb, Nicotine patch GI: Tube feeds Heme: Anemia- Hgb stable on Lovenox, ASA Will continue to monitor CBC Nephro: Cr increased (1.8 from 1.5) Hypernatremia-improving on D5W@60, will attempt to change any medication with NS to D5 Nephro consulted- recs appreciated Monitor I&O Contintue to monitor electrolytes and replace as needed Maintain euvolemia Continue Phoslo ID: Urosepsis, Community Acquired pneumonia Blood culture and urine culture + for G- lauren, Cultures all now negative Yeast in trach Repeat PCT 1.92 (trending down from 4.9) ID on consult- recs appreciated Continue Merrem, Zyvox, Doxy and Micofungin Endo: Hx of DM Continue Insulin drip, also on D5W for hypernatremia BGM q1h Maintain euglycemia (140-180) GI ppx: Protonix DVT ppx: Lovenox Case seen, discussed reviewed with attending. Billy Li PGY2 <Kwasi Lee - Last Filed: 09/16/17 18:38> Objective - Vital Signs/Intake and Output Vital Signs (last 24 hours): Temp Pulse Resp BP Pulse Ox 100 F H 108 H 30 H 133/69 96 09/16/17 04:00 09/16/17 13:50 09/16/17 08:07 09/16/17 13:46 09/16/17 13:50 Intake and Output: 09/16/17 09/16/17 06:59 18:59 Intake Total 2755 224 Output Total 900 Balance 1855 224 - Medications Medications: Current Medications Albuterol/Ipratropium (Duoneb 3 Mg/0.5 Mg (3 Ml) Ud) 3 ml IH Q2H PRN PRN Reason: Shortness of Breath Last Admin: 09/07/17 04:25 Dose: 3 ml Albuterol/Ipratropium (Duoneb 3 Mg/0.5 Mg (3 Ml) Ud) 3 ml IH [id number] [facility] Last Admin: 09/16/17 13:47 Dose: 3 ml Artificial Tears (Artificial Tears Opht Oint) 0 gm OU Q12 [facility] Last Admin: 09/16/17 10:05 Dose: 1 gm Aspirin (Aspirin Chewable) 81 mg PO DAILY [facility] Last Admin: 09/16/17 10:05 Dose: 81 mg Bacitracin (Bacitracin) 0 gm TOP BID [facility] Calcium Acetate (Phoslo) 1,334 mg PO WM [facility] Last Admin: 09/16/17 17:29 Dose: 1,334 mg Enoxaparin Sodium (Lovenox) 100 mg SC Q24H [facility] PRN Reason: Protocol Last Admin: 09/16/17 10:01 Dose: 100 mg Furosemide (Lasix) 40 mg IVP Q12 [facility] Last Admin: 09/16/17 09:59 Dose: 40 mg Dobutamine HCl/Dextrose (Dobutamine/Dextrose 5% 500mg/250ml) 500 mg in 250 mls @ 7.327 mls/hr IV .Q24H PRN; Protocol; 2.5 MCG/KG/MIN PRN Reason: TITRATE PER PROTOCOL Last Admin: 09/16/17 05:22 Dose: 5 mcg/kg/min, 14.654 mls/hr Insulin Human Regular 100 (units/ Sodium Chloride) 100 mls @ 0.5 mls/hr IV .Q24H PRN; Protocol; 0.5 UNITS/HR PRN Reason: TITRATE PER MD ORDER Last Titration: 09/16/17 15:00 Dose: 2 units/hr, 2 mls/hr Dexmedetomidine HCl (Precedex 4 Mcg/Ml (100 Ml)) 400 mcg in 100 mls @ 4.853 mls /hr IV .[id number] PRN; Protocol; 0.2 MCG/KG/HR PRN Reason: Agitation Last Admin: 09/16/17 17:30 Dose: 1.2 mcg/kg/hr, 29.121 mls/hr Linezolid (Zyvox 600mg/300ml D5w) 600 mg in 300 mls @ 200 mls/hr IVPB Q12 [facility] PRN Reason: Protocol Stop: 09/21/17 10:01 Last Admin: 09/16/17 10:04 Dose: 200 mls/hr Propofol (Diprivan) 1,000 mg in 100 mls @ 2.912 mls/hr IV .Q24H PRN; Protocol; 5 MCG/KG/MIN PRN Reason: TITRATE PER MD ORDER Last Admin: 09/15/17 08:52 Dose: 40 mcg/kg/min, 23.297 mls/hr Dextrose (Dextrose 5% In Water 1000 Ml) 1,000 mls @ 60 mls/hr IV .[id number] [facility] Last Admin: 09/16/17 04:50 Dose: 60 mls/hr Micafungin Sodium 100 mg/ (Dextrose) 100 mls @ 100 mls/hr IV DAILY [facility] PRN Reason: Protocol Stop: 09/22/17 10:01 Last Admin: 09/16/17 10:01 Dose: 100 mls/hr Doxycycline Hyclate 100 mg/ (Dextrose) 100 mls @ 100 mls/hr IVPB Q12 [facility] PRN Reason: Protocol Stop: 09/19/17 22:01 Last Admin: 09/16/17 10:02 Dose: 100 mls/hr Meropenem 1 gm/ Sodium (Chloride) 100 mls @ 100 mls/hr IVPB Q12 [facility] PRN Reason: Protocol Stop: 09/23/17 10:16 Last Admin: 09/16/17 10:18 Dose: 100 mls/hr Morphine Sulfate (Morphine) 4 mg IVP Q6H PRN PRN Reason: Agitation Last Admin: 09/16/17 16:13 Dose: 4 mg Nicotine (Nicoderm Cq) 1 patch TD DAILY [facility] Last Admin: 09/16/17 10:23 Dose: 1 patch Pantoprazole Sodium (Protonix Inj) 40 mg IVP BID [facility] Last Admin: 09/16/17 10:00 Dose: 40 mg Ticagrelor (Brilinta) 90 mg PO BID [facility] Last Admin: 09/12/17 10:29 Dose: 90 mg Vitamin A (Vitamin A & D Oint Ud Foilpak) 1 ea TOP Q8 PRN PRN Reason: Dry skin Last Admin: 09/16/17 10:02 Dose: 1 ea - Labs Labs: 09/16/17 06:41 09/16/17 06:41 PT 15.3 SECONDS (9.4-12.5) H 09/14/17 16:20 INR 1.33 (0.93-1.08) H 09/14/17 16:20 APTT 45.1 Seconds (25.1-36.5) H 09/15/17 08:15 Attending/Attestation - Attestation I have personally seen and examined this patient.: Yes I have fully participated in the care of the patient.: Yes I have reviewed all pertinent clinical information, including history, physical exam and plan: Yes Notes (Text): 09/16/17 18:[address] Lee
--- NOTE | 2017-09-16 12:32 | CP.PCM.PN ---
<Ana Interiano - Last Filed: 09/16/17 12:28> Subjective - Date & Time of Evaluation Date of Evaluation: 09/16/17 Time of Evaluation: 12:28 - Subjective Subjective: Ana Interiano, PGY1, Medicine Progress Note for Dr Barroso: Patient seen and examined at bedside. Pt febrile overnight 100F at 4 AM. Pt off propofol. Pt more awake, opens eyes spontaneously, follows commands. Off tube feeds. on free water and D5W. ROS unobtainable as pt is intubated. Objective - Vital Signs/Intake and Output Vital Signs (last 24 hours): Temp Pulse Resp BP Pulse Ox 100 F H 103 H 30 H 139/78 96 09/16/17 04:00 09/16/17 05:30 09/16/17 08:07 09/16/17 09:59 09/16/17 08:07 Intake and Output: 09/16/17 09/16/17 06:59 18:59 Intake Total 2755 122 Output Total 900 Balance 1855 122 - Medications Medications: Current Medications Albuterol/Ipratropium (Duoneb 3 Mg/0.5 Mg (3 Ml) Ud) 3 ml IH Q2H PRN PRN Reason: Shortness of Breath Last Admin: 09/07/17 04:25 Dose: 3 ml Albuterol/Ipratropium (Duoneb 3 Mg/0.5 Mg (3 Ml) Ud) 3 ml IH [id number] [facility] Last Admin: 09/16/17 07:02 Dose: 3 ml Artificial Tears (Artificial Tears Opht Oint) 0 gm OU Q12 [facility] Last Admin: 09/16/17 10:05 Dose: 1 gm Aspirin (Aspirin Chewable) 81 mg PO DAILY [facility] Last Admin: 09/16/17 10:05 Dose: 81 mg Bacitracin (Bacitracin) 0 gm TOP BID [facility] Calcium Acetate (Phoslo) 1,334 mg PO WM [facility] Last Admin: 09/16/17 07:50 Dose: 1,334 mg Enoxaparin Sodium (Lovenox) 100 mg SC Q24H [facility] PRN Reason: Protocol Last Admin: 09/16/17 10:01 Dose: 100 mg Furosemide (Lasix) 40 mg IVP Q12 [facility] Last Admin: 09/16/17 09:59 Dose: 40 mg Dobutamine HCl/Dextrose (Dobutamine/Dextrose 5% 500mg/250ml) 500 mg in 250 mls @ 7.327 mls/hr IV .Q24H PRN; Protocol; 2.5 MCG/KG/MIN PRN Reason: TITRATE PER PROTOCOL Last Admin: 09/16/17 05:22 Dose: 5 mcg/kg/min, 14.654 mls/hr Insulin Human Regular 100 (units/ Sodium Chloride) 100 mls @ 0.5 mls/hr IV .Q24H PRN; Protocol; 0.5 UNITS/HR PRN Reason: TITRATE PER MD ORDER Last Titration: 09/16/17 10:15 Dose: 1.5 units/hr, 1.5 mls/hr Dexmedetomidine HCl (Precedex 4 Mcg/Ml (100 Ml)) 400 mcg in 100 mls @ 4.853 mls /hr IV .[id number] PRN; Protocol; 0.2 MCG/KG/HR PRN Reason: Agitation Last Admin: 09/16/17 08:44 Dose: 1.2 mcg/kg/hr, 29.121 mls/hr Linezolid (Zyvox 600mg/300ml D5w) 600 mg in 300 mls @ 200 mls/hr IVPB Q12 [facility] PRN Reason: Protocol Stop: 09/21/17 10:01 Last Admin: 09/16/17 10:04 Dose: 200 mls/hr Propofol (Diprivan) 1,000 mg in 100 mls @ 2.912 mls/hr IV .Q24H PRN; Protocol; 5 MCG/KG/MIN PRN Reason: TITRATE PER MD ORDER Last Admin: 09/15/17 08:52 Dose: 40 mcg/kg/min, 23.297 mls/hr Dextrose (Dextrose 5% In Water 1000 Ml) 1,000 mls @ 60 mls/hr IV .[id number] [facility] Last Admin: 09/16/17 04:50 Dose: 60 mls/hr Micafungin Sodium 100 mg/ (Dextrose) 100 mls @ 100 mls/hr IV DAILY [facility] PRN Reason: Protocol Stop: 09/22/17 10:01 Last Admin: 09/16/17 10:01 Dose: 100 mls/hr Doxycycline Hyclate 100 mg/ (Dextrose) 100 mls @ 100 mls/hr IVPB Q12 [facility] PRN Reason: Protocol Stop: 09/19/17 22:01 Last Admin: 09/16/17 10:02 Dose: 100 mls/hr Meropenem 1 gm/ Sodium (Chloride) 100 mls @ 100 mls/hr IVPB Q12 [facility] PRN Reason: Protocol Stop: 09/23/17 10:16 Last Admin: 09/16/17 10:18 Dose: 100 mls/hr Morphine Sulfate (Morphine) 4 mg IVP Q6H PRN PRN Reason: Agitation Last Admin: 09/15/17 18:02 Dose: 4 mg Nicotine (Nicoderm Cq) 1 patch TD DAILY [facility] Last Admin: 09/16/17 10:23 Dose: 1 patch Pantoprazole Sodium (Protonix Inj) 40 mg IVP BID [facility] Last Admin: 09/16/17 10:00 Dose: 40 mg Ticagrelor (Brilinta) 90 mg PO BID [facility] Last Admin: 09/12/17 10:29 Dose: 90 mg Vitamin A (Vitamin A & D Oint Ud Foilpak) 1 ea TOP Q8 PRN PRN Reason: Dry skin Last Admin: 09/16/17 10:02 Dose: 1 ea - Labs Labs: 09/16/17 06:41 09/16/17 06:41 PT 15.3 SECONDS (9.4-12.5) H 09/14/17 16:20 INR 1.33 (0.93-1.08) H 09/14/17 16:20 APTT 45.1 Seconds (25.1-36.5) H 09/15/17 08:15 - Additional Findings Additional findings: - Constitutional Appears: Chronically Ill, remains intubated - Head Exam Head Exam: NORMAL INSPECTION, NORMOCEPHALIC - Eye Exam Eye Exam: Normal appearance. absent: Conjunctival injection, Scleral icterus - ENT Exam Additional comments: ET tube in place. - Respiratory Exam Additional comments: Intubated on vent PRVC TV 400, PEEP 10, RR 28, 50% FiO2 - Cardiovascular Exam Cardiovascular Exam: S1 S2 absent: Murmur - GI/Abdominal Exam GI & Abdominal Exam: Soft, Normal Bowel Sounds. absent: Firm, Guarding, Rigid, Tenderness - Extremities Exam Extremities Exam: Normal Inspection - Neurological Exam Additional comments: more awake, opens eyes spontaneously, follow simple commands. - Psychiatric Exam Additional comments: intubated - Skin Skin Exam: Dry, Intact Assessment and Plan - Assessment and Plan (Free Text) Assessment: 67 yr old male with PMH with CAD s/p 15 stents, COPD, rheumatoid arthritis found to be in hypoxic respiratory distress, ARDS, NSTEMI, community acquired pneumonia and septic shock secondary to urosepsis with positive blood cultures: Hypernatremia: - Na 155 today - C/w free water replacement and D5W at 60 ml/h. - ICU management NSTEMI - troponin elevated - Cardiology (Dr. Arias) following, recs appreciated * Unstable for Cardiac cath * Echo: dilated LV, EF 25-30%, hypokinesis of LV, trace AR, mild/mod MR, mild TR, dilated IVC - ASA - heparin drip held. Started Lovenox - Hold brilinta due to anemia, per Cardio - holding Beta blockers 2/2 hypotension - holding crestor 2/2 rhabdo and elevated LFTs Respiratory failure - pneumonia vs acute decompensated CHF vs. history of COPD - intubated and sedated on precedex. Discontinued fentanyl and propofol - on dobutamine drip, midodrine - CT chest: New alveolar and interstitial infiltrates are seen in both lower lobes as well as the right upper lobe. This is superimposed upon chronic emphysematous changes - ABG showing respiratory alkalosis - negative for MRSA - flu negative - legionella negative - duonebs [facility] and PRN - lasix 40 IV q 12h - Merrem and Doxy D7; Zyvox D3, Mycamine, Hypokalemia: - resolved - Cont to monitor EMMA - Lasix prn - will monitor - nephro on board. appreciate recs UTI - Repeat blood and urine culture negative - UA showing elevated leuk esterase and nitrate - blood cultures showing E. coli - urine culture showing E. coli - abx as above - repeat cultured and repeat procalcitonin in light of spiking temps E. coli bacteremia - blood and urine cultures positive for E. coli - Repeat blood and urine prelim negative - Sputum: + yeast - ID consulted, recs appreciated - abx as above Left inguinal hernia - CT abd/pel:There is a 5 cm diameter left inguinal hernia that contains a portion of the sigmoid colon. There is no obstruction - not causing problems at this time Hypotension - dobutamine gtt, and midodrine - Maintain MAP above 65 - holding beta adali for now Immunocompromised 2/2 RA - Bactrim for PCP ppx discontinued due to renal impairment PPX * GI protonix * DVT heparin drip Discussed with Dr. Barroso. <Gracia Barroso - Last Filed: 09/17/17 11:11> Objective - Vital Signs/Intake and Output Vital Signs (last 24 hours): Temp Pulse Resp BP Pulse Ox 99.8 F H 91 H 31 H 128/62 98 09/17/17 04:00 09/17/17 06:10 09/17/17 08:07 09/17/17 09:41 09/17/17 08:07 Intake and Output: 09/17/17 09/17/17 06:59 18:59 Intake Total 2421.5 1.5 Output Total 2650 Balance -228.5 1.5 - Medications Medications: Current Medications Albuterol/Ipratropium (Duoneb 3 Mg/0.5 Mg (3 Ml) Ud) 3 ml IH Q2H PRN PRN Reason: Shortness of Breath Last Admin: 09/07/17 04:25 Dose: 3 ml Albuterol/Ipratropium (Duoneb 3 Mg/0.5 Mg (3 Ml) Ud) 3 ml IH [id number] [facility] Last Admin: 09/17/17 08:07 Dose: 3 ml Artificial Tears (Artificial Tears Opht Oint) 0 gm OU Q12 PRN PRN Reason: Dry eyes Aspirin (Aspirin Chewable) 81 mg PO DAILY [facility] Last Admin: 09/17/17 09:42 Dose: 81 mg Bacitracin (Bacitracin) 0 gm TOP BID [facility] Last Admin: 09/17/17 10:13 Dose: 1 applic Calcium Acetate (Phoslo) 1,334 mg PO WM [facility] Last Admin: 09/17/17 09:44 Dose: Not Given Enoxaparin Sodium (Lovenox) 100 mg SC Q24H [facility] PRN Reason: Protocol Last Admin: 09/17/17 09:41 Dose: 100 mg Furosemide (Lasix) 40 mg IVP Q12 [facility] Last Admin: 09/17/17 09:41 Dose: 40 mg Dobutamine HCl/Dextrose (Dobutamine/Dextrose 5% 500mg/250ml) 500 mg in 250 mls @ 7.327 mls/hr IV .Q24H PRN; Protocol; 2.5 MCG/KG/MIN PRN Reason: TITRATE PER PROTOCOL Last Admin: 09/16/17 05:22 Dose: 5 mcg/kg/min, 14.654 mls/hr Dexmedetomidine HCl (Precedex 4 Mcg/Ml (100 Ml)) 400 mcg in 100 mls @ 4.853 mls /hr IV .[id number] PRN; Protocol; 0.2 MCG/KG/HR PRN Reason: Agitation Last Admin: 09/17/17 05:32 Dose: 1.2 mcg/kg/hr, 29.121 mls/hr Linezolid (Zyvox 600mg/300ml D5w) 600 mg in 300 mls @ 200 mls/hr IVPB Q12 [facility] PRN Reason: Protocol Stop: 09/21/17 10:01 Last Admin: 09/17/17 09:41 Dose: 200 mls/hr Propofol (Diprivan) 1,000 mg in 100 mls @ 2.912 mls/hr IV .Q24H PRN; Protocol; 5 MCG/KG/MIN PRN Reason: TITRATE PER MD ORDER Last Admin: 09/17/17 09:45 Dose: 40 mcg/kg/min, 23.297 mls/hr Dextrose (Dextrose 5% In Water 1000 Ml) 1,000 mls @ 60 mls/hr IV .[id number] [facility] Last Admin: 09/17/17 06:03 Dose: 60 mls/hr Micafungin Sodium 100 mg/ (Dextrose) 100 mls @ 100 mls/hr IV DAILY [facility] PRN Reason: Protocol Stop: 09/22/17 10:01 Last Admin: 09/17/17 09:43 Dose: 100 mls/hr Doxycycline Hyclate 100 mg/ (Dextrose) 100 mls @ 100 mls/hr IVPB Q12 [facility] PRN Reason: Protocol Stop: 09/19/17 22:01 Last Admin: 09/17/17 09:43 Dose: 100 mls/hr Meropenem 1 gm/ Dextrose 100 mls @ 100 mls/hr IVPB Q12 [facility] PRN Reason: Protocol Stop: 09/23/17 10:16 Last Admin: 09/17/17 09:43 Dose: 100 mls/hr Insulin Human Regular (Humulin R High) 0 units SC Q4H [facility] PRN Reason: Protocol Morphine Sulfate (Morphine) 4 mg IVP Q6H PRN PRN Reason: Agitation Last Admin: 09/17/17 06:00 Dose: 4 mg Nicotine (Nicoderm Cq) 1 patch TD DAILY [facility] Last Admin: 09/17/17 09:48 Dose: 1 patch Pantoprazole Sodium (Protonix Inj) 40 mg IVP BID [facility] Last Admin: 09/17/17 09:42 Dose: 40 mg Ticagrelor (Brilinta) 90 mg PO BID [facility] Last Admin: 09/12/17 10:29 Dose: 90 mg Vitamin A (Vitamin A & D Oint Ud Foilpak) 1 ea TOP Q8 PRN PRN Reason: Dry skin Last Admin: 09/16/17 10:02 Dose: 1 ea - Labs Labs: 09/17/17 05:00 09/17/17 05:00 PT 15.3 SECONDS (9.4-12.5) H 09/14/17 16:20 INR 1.33 (0.93-1.08) H 09/14/17 16:20 APTT 45.1 Seconds (25.1-36.5) H 09/15/17 08:15 Attending/Attestation - Attestation I have personally seen and examined this patient.: Yes I have fully participated in the care of the patient.: Yes I have reviewed all pertinent clinical information, including history, physical exam and plan: Yes Notes (Text): 09/17/17 11:08 Patient was seen and examined with director global medical affairs. 67 yrs old male with PMHx of CAD,SP Multiple cardiac stents,CHF with systolic dysfunction. Rheumatoid arthiristis and HTN was admitted with , NSTEMI, and gram negative bacteremia, went into respiratory failure, ARDS, septic/ cardiogenic shock, requiring vasopressors, also has AF Patient is intubated, sedated, off Levophed on Dobutamine for CHF. Patient is still hypoxic requiring high FIO2 .Chest X rays showed bilateral alevaolar infiltrates likely combination of Pneumonia with Pulmonary edema, patient is still very hypoxic on high FIO2 , X rays is mildly improved.FIO 2 requirement is still 50%,Critical care team is managing respiratory failure. Sepsis on IV antibiotics as per ID for Pneumonia and Ecoli Bacteremia.Repeat blood cultures are negative.Patient is still having low grade fever.Sputum cultures grew yeast, started on Linezolide,Meropenem and Micafungin as per ID. Renal failure, Creatinin has come down to 1.8, had good urine out put, we will monitor BUN and creatinin with diuresis. Hypernatremic, on free water via NGT Anemia,Hemoglobin is stable, on anticoagulation for AF , will monitor hemoglobin . Prognosis is guarded.
--- NOTE | 2017-09-16 13:07 | RAD ---
HISTORY: intubated, pulm edema COMPARISON: Portable chest 09/15/2017. FINDINGS: Stable positioning of endotracheal and nasogastric tubes is appreciate as well as left PICC. LUNGS: Diminishing by hilar and mid lung zone opacity may reflect improved pulmonary venous congestion with underlying infiltrates not excluded though likely improved as well. PLEURA: No significant pleural effusion identified, no pneumothorax apparent. CARDIOVASCULAR: Cardiac silhouette appears stable. OSSEOUS STRUCTURES: No significant abnormalities. VISUALIZED UPPER ABDOMEN: Normal. OTHER FINDINGS: None. IMPRESSION: Diminishing by hilar opacity suggests over diminishes CHF with underlying infiltrates not excluded bilaterally. Further clinical correlation is recommended.
--- NOTE | 2017-09-16 13:47 | PN ---
DATE: 09/16/2017 SUBJECTIVE: The patient is seen and examined at the bedside. He is on Precedex 1.2 mcg/kg per hour. He is on dobutamine 5 mcg/kg per minute. He is on insulin drip 1 unit per hour and he is on 60 mL/hour of D5W. He is on PRVC 400/28/10/50% on that setting. His oxygen saturation is 96%. His end-tidal CO2 on the monitor is 38. His pH is 7.39. PHYSICAL EXAMINATION: VITAL SIGNS: His heart rate 104 and blood pressure 144/79. ENT: Head and neck atraumatic. LUNGS: Clear auscultation bilaterally with some decrease in breath sounds in the bibasilar area. HEART: Regular rate and rhythm. S1, S2 normal. ABDOMEN: Soft, nontender, nondistended. MUSCULOSKELETAL: 1+ bilateral pedal and ankle edema. SKIN: Moist. PSYCHIATRIC: Patient is lethargic, easily arousable and following commands. LABORATORY DATA: Sodium 155, potassium 4.3, chloride 113, carbon dioxide 33, BUN 98, creatinine 1.8 up from 1.5, glucose 113, AST 97, ALT 73 (Lipitor stopped), bilirubin 0.8. ABG showed 7.39/54/66. WBC 15.9 down from 16.5, hemoglobin 8.1, platelet count 220. MEDICATIONS: DuoNeb p.r.n. and every 6 hours, aspirin, PhosLo, Precedex, D5 60 mL/hour, dobutamine, doxycycline, Lovenox 100 mg subcu q. 24, Lasix 40 mg IV q. 12, insulin drip, micafungin, nicotine patch, Protonix, Brilinta, Zyvox. Chest x-ray, right lower lobe infiltrate, looks a little bit better than yesterday. ASSESSMENT AND PLAN: This is a 67-year-old gentleman recovering from hypoxemic respiratory failure secondary to cardiogenic and noncardiogenic pulmonary edema in the setting of severe left ventricular systolic dysfunction and [id number] myocardial infarction combined with severe sepsis secondary to Escherichia coli bacteremia. Patient is off of pressors, however, still on dobutamine 5 mcg/kg per minute. Neurologic: Patient is on Precedex. He is easily arousable and following commands. He was noted to move all extremities spontaneously. He is getting morphine p.r.n. for his chronic pain related to rheumatoid arthritis, which hopefully will help with his agitation at times. He is also on nicotine patch as he is an avid smoker and nicotine patch may help with agitation by blunting nicotine withdrawal as well. Pulmonary: We will continue with protective lung ventilation strategy, tidal volume 6 mL per predicted body weight and plateau pressure less than 30 cmH20. I will continue with conservative fluid management and patient was restarted of Lasix 40 mg IV as well. We will continue with head of bed elevated more than 35 degrees. Oral hygiene, VAP bundle. We will continue with antibiotics for presumed pneumonia. At present time, I think, patient may benefit from trach which would allow further weaning his sedation drip. Consult for ENT was placed. Cardiovascular: Patient is recovering from combined cardiogenic and distributive shock. He is off of pressors, however, still requires dobutamine 5 mcg/kg per minute. We will continue with therapeutic anticoagulation. We will continue with a dual antiplatelet therapy. Statins were held since LFTs started trending up. Gastrointestinal: Once his BUN comes down a little bit more, we will restart enteral feeds. We will continue with gastrointestinal prophylaxis. Infectious disease: Patient has leukocytosis is going down; however, he still has low-grade fever. Patient is on meropenem, doxycycline, Zyvox and micafungin. Fungal serology is pending. ID service is following the patient as well. Chest x-ray looks a little bit better. Endocrine: We will maintain blood glucose within 140 to 180 range. Patient never had any episodes of hypoglycemia. Renal: Patient's renal function plateaued. He is making good urine (900 mL overnight) and as his blood urea nitrogen is somewhat decreased, we will restart Lasix. His sodium is 155 down from 157. Patient is on 400 mL free water flushes every 3 hours. That helped with blood urea nitrogen and with sodium as well. We will continue to maintain euvolemia, euglycemia, and mean arterial pressure more than 65. ccm time 40 min Kwasi Lee MD [facility]
[2017-09-16] MEDS: Morphine 5 MG/ML SYRINGE IVP PRN (16:13)
--- NOTE | 2017-09-16 19:18 | PN ---
DATE: SUBJECTIVE: The patient is still on the vent. No reported ventricular arrhythmia. PHYSICAL EXAMINATION VITAL SIGNS: Blood pressure 139/78, heart rate 103, respirations 30, temperature 100. HEENT: Pale conjunctivae. CHEST: Scattered bilateral coarse crepitations. HEART: S1, S2 regular. EXTREMITIES: 1+ pitting edema. EKG revealed atrial fibrillation at the rate of 97, anteroseptal infarct , consider lateral ischemia. Echocardiographic study revealed ejection fraction in the range of 25% to 30% with segmental hypokinesis. Chest x-ray revealed cardiomegaly with moderate CHF, consider right middle and lower lobe as well as left lower lobe alveolar infiltrate. LABORATORY DATA: Today's hemoglobin and hematocrit 8.1 and 26.7, white count 15.9, platelet count 120,000. Today's SMA-7: Sodium 155, potassium 4.3, chloride 115, CO2 of 33, glucose 115, BUN 98, creatinine 1.8. ASSESSMENT: 1. Respiratory failure. 2. Consider bilateral pneumoniae. 3. Ischemic cardiomyopathy. 4. Non-ST elevation myocardial infarction. 5. Chronic atrial fibrillation. 6. Chronic renal insufficiency. RECOMMENDATIONS: Continue current aspirin 81 mg once a day, Brilinta 90 mg twice a day, Dobutrex infusion at 5 mcg/kg/minute, Lasix at 40 mg intravenous twice a day, subcutaneous Lovenox at 100 mg daily, meropenem at 1 g daily, micafungin 100 mg intravenously daily, PhosLo mg with meals, Zyvox 600 mg intravenously twice a day. Steve Yañez MD
[2017-09-16] MEDS: Bacitracin Ointment 30 GM TUBE TOP SCH ×2 (19:32→19:33)
[2017-09-17] MEDS: Dexmedetomidine 400mcg/100mL 400 MCG/100 ML BOTTLE IV PRN ×2 (01:02→05:32)
[2017-09-17] MEDS: Albuterol-Ipratrop 3 mg / 0.5 (3 ml) UD IH SCH ×4 (01:45→19:08)
[2017-09-17] MEDS: Morphine 5 MG/ML SYRINGE IVP PRN ×3 (06:00→17:28)
[2017-09-17 06:01] LABS: BASO # 0.01 K/mm3 (0.0-2.0); BASO % 0.1 % (0.0-3.0); EOS # 0.2 (0.0-0.7); EOS % 1.6 % (1.5-5.0); GRAN # 10.8 (1.4-6.5); GRAN % 81.8 % (50.0-68.0); HEMOGLOBIN 8.7 g/dL (14.0-18.0); LYMPH # 1.7 (1.2-3.4); LYMPH % 12.6 % (22.0-35.0); MEAN CELL VOLUME 97.3 fl (80.0-105.0); MEAN CORPUSCULAR HEMOGLOBIN 29.8 pg (25.0-35.0); MEAN CORPUSCULAR HGB CONC 30.6 g/dl (31.0-37.0); MEAN PLATELET VOLUME 11.3 fl (7.0-11.0); MONO # 0.5 (0.1-0.6); MONO % 3.9 % (1.0-6.0); RBC 2.92 10^6/uL (3.5-6.1); RED CELL DISTRIBUTION WIDTH 17.1 % (11.5-14.5); WHITE BLOOD COUNT 13.2 10^3/ul (4.5-11.0)
[2017-09-17 06:13] LABS: ALBUMIN 2.8 g/dL (3.0-4.8); ALT/SGPT 69 U/L (7-56); AST/SGOT 62 U/L (17-59); BLOOD UREA NITROGEN 78 mg/dL (7-21); CALCIUM 8.8 mg/dL (8.4-10.5); GFR AFRICAN-AMERICAN > 60; GFR NON-AFRICAN AMERICAN 55
[2017-09-17 07:07] LABS: ARTERIAL BLOOD GAS HCO3 29.4 mmol/L (21-28); ARTERIAL BLOOD GAS HEMOGLOBIN 8.1 g/dL (11.7-17.4); ARTERIAL BLOOD GAS O2 CAPACITY 11.1 mL/dl (16-24); ARTERIAL BLOOD GAS O2 CONTENT 10.3 ML/dl (15-23); ARTERIAL BLOOD GAS O2 SAT 93.2 % (95-98); ARTERIAL BLOOD GAS PCO2 36 mm/Hg (35-45); ARTERIAL BLOOD GAS PH 7.52 (7.35-7.45); ARTERIAL BLOOD GAS TCO2 30.5 mmol.L (22-28)
[2017-09-17] MEDS ORDERED: Potassium Chloride 10 mEq ER Tab PO STA (07:43)
[2017-09-17] MEDS ORDERED: Potassium Chloride 40 mEq/30 ml LIQ UD PO ONE (08:10)
[2017-09-17] MEDS ORDERED: Insulin Reg-HIGH-Coverage SC SCH (09:30)
[2017-09-17] MEDS: Linezolid 600 mg in D5W 300 ml 600 MG/300 ML BAG IVPB SCH ×2 (09:41→22:33)
[2017-09-17] MEDS: Enoxaparin 100 mg Syringe SC SCH (09:41)
[2017-09-17] MEDS: DEXTROSE 5% IVPB SCH ×2 (09:43→22:33)
[2017-09-17] MEDS: DOXYCYCLINE HYCLATE IVPB SCH ×2 (09:43→22:33)
[2017-09-17] MEDS: WATER IVPB SCH ×2 (09:43→22:33)
[2017-09-17] MEDS: Meropenem 1 GM in Dextrose 5% In Water 100 ML IVPB SCH ×2 (09:43→22:33)
[2017-09-17] MEDS: Micafungin 100 MG in Dextrose 5% In Water 100 ML IV SCH (09:43)
[2017-09-17] MEDS: Mineral Oil/Petrolatum Opht Oint(3.5 gm) OU SCH (09:44)
[2017-09-17] MEDS: Propofol 10 mg/ml 1,000 MG/100 ML VIAL IV PRN ×3 (09:45→20:49)
[2017-09-17] MEDS ORDERED: Mineral Oil/Petrolatum Opht Oint(3.5 gm) OU PRN (09:48)
--- NOTE | 2017-09-17 10:06 | RAD ---
HISTORY: Intubated. Pulmonary edema. COMPARISON: Multiple serial examinations preceding the most recent study: September 16, 2017. Time of the most recent examination: 05:31. FINDINGS: LUNGS: Progressive pulmonary edema with more confluent airspace disease. PLEURA: No significant pleural effusion identified, no pneumothorax apparent. CARDIOVASCULAR: No significant interval change compared to the prior examination(s). OSSEOUS STRUCTURES: No significant abnormalities. VISUALIZED UPPER ABDOMEN: Normal. OTHER FINDINGS: Stable, satisfactory position ventilatory, vascular and nasogastric apparatus. IMPRESSION: Progressive pulmonary edema with more confluence of the alveolar component. Stable position of support apparatus.
[2017-09-17] MEDS: Bacitracin Ointment 30 GM TUBE TOP SCH ×2 (10:13→17:21)
--- NOTE | 2017-09-17 11:01 | CP.PCM.PN ---
<Ana Interiano - Last Filed: 09/17/17 10:56> Subjective - Date & Time of Evaluation Date of Evaluation: 09/17/17 Time of Evaluation: 10:56 - Subjective Subjective: Ana Interiano, PGY1, Medicine Progress Note for Dr Barroso: Patient seen and examined at bedside. No acute events overnight. Pt restarted on propofol. Pt more awake, opens eyes spontaneously. No fevers. ROS unobtainable as pt is intubated/sedated Objective - Vital Signs/Intake and Output Vital Signs (last 24 hours): Temp Pulse Resp BP Pulse Ox 99.8 F H 91 H 31 H 128/62 98 09/17/17 04:00 09/17/17 06:10 09/17/17 08:07 09/17/17 09:41 09/17/17 08:07 Intake and Output: 09/17/17 09/17/17 06:59 18:59 Intake Total 2421.5 1.5 Output Total 2650 Balance -228.5 1.5 - Medications Medications: Current Medications Albuterol/Ipratropium (Duoneb 3 Mg/0.5 Mg (3 Ml) Ud) 3 ml IH Q2H PRN PRN Reason: Shortness of Breath Last Admin: 09/07/17 04:25 Dose: 3 ml Albuterol/Ipratropium (Duoneb 3 Mg/0.5 Mg (3 Ml) Ud) 3 ml IH [id number] COUNTS INCLUDE 234 BEDS AT THE [facility] Last Admin: 09/17/17 08:07 Dose: 3 ml Artificial Tears (Artificial Tears Opht Oint) 0 gm OU Q12 PRN PRN Reason: Dry eyes Aspirin (Aspirin Chewable) 81 mg PO DAILY COUNTS INCLUDE 234 BEDS AT THE [facility] Last Admin: 09/17/17 09:42 Dose: 81 mg Bacitracin (Bacitracin) 0 gm TOP BID COUNTS INCLUDE 234 BEDS AT THE [facility] Last Admin: 09/17/17 10:13 Dose: 1 applic Calcium Acetate (Phoslo) 1,334 mg PO WM COUNTS INCLUDE 234 BEDS AT THE [facility] Last Admin: 09/17/17 09:44 Dose: Not Given Enoxaparin Sodium (Lovenox) 100 mg SC Q24H OLMAN PRN Reason: Protocol Last Admin: 09/17/17 09:41 Dose: 100 mg Furosemide (Lasix) 40 mg IVP Q12 COUNTS INCLUDE 234 BEDS AT THE [facility] Last Admin: 09/17/17 09:41 Dose: 40 mg Dobutamine HCl/Dextrose (Dobutamine/Dextrose 5% 500mg/250ml) 500 mg in 250 mls @ 7.327 mls/hr IV .Q24H PRN; Protocol; 2.5 MCG/KG/MIN PRN Reason: TITRATE PER PROTOCOL Last Admin: 09/16/17 05:22 Dose: 5 mcg/kg/min, 14.654 mls/hr Dexmedetomidine HCl (Precedex 4 Mcg/Ml (100 Ml)) 400 mcg in 100 mls @ 4.853 mls /hr IV .[id number] PRN; Protocol; 0.2 MCG/KG/HR PRN Reason: Agitation Last Admin: 09/17/17 05:32 Dose: 1.2 mcg/kg/hr, 29.121 mls/hr Linezolid (Zyvox 600mg/300ml D5w) 600 mg in 300 mls @ 200 mls/hr IVPB Q12 OLMAN PRN Reason: Protocol Stop: 09/21/17 10:01 Last Admin: 09/17/17 09:41 Dose: 200 mls/hr Propofol (Diprivan) 1,000 mg in 100 mls @ 2.912 mls/hr IV .Q24H PRN; Protocol; 5 MCG/KG/MIN PRN Reason: TITRATE PER MD ORDER Last Admin: 09/17/17 09:45 Dose: 40 mcg/kg/min, 23.297 mls/hr Dextrose (Dextrose 5% In Water 1000 Ml) 1,000 mls @ 60 mls/hr IV .[id number] OLMAN Last Admin: 09/17/17 06:03 Dose: 60 mls/hr Micafungin Sodium 100 mg/ (Dextrose) 100 mls @ 100 mls/hr IV DAILY OLMAN PRN Reason: Protocol Stop: 09/22/17 10:01 Last Admin: 09/17/17 09:43 Dose: 100 mls/hr Doxycycline Hyclate 100 mg/ (Dextrose) 100 mls @ 100 mls/hr IVPB Q12 OLMAN PRN Reason: Protocol Stop: 09/19/17 22:01 Last Admin: 09/17/17 09:43 Dose: 100 mls/hr Meropenem 1 gm/ Dextrose 100 mls @ 100 mls/hr IVPB Q12 OLMAN PRN Reason: Protocol Stop: 09/23/17 10:16 Last Admin: 09/17/17 09:43 Dose: 100 mls/hr Insulin Human Regular (Humulin R High) 0 units SC Q4H OLMAN PRN Reason: Protocol Morphine Sulfate (Morphine) 4 mg IVP Q6H PRN PRN Reason: Agitation Last Admin: 09/17/17 06:00 Dose: 4 mg Nicotine (Nicoderm Cq) 1 patch TD DAILY COUNTS INCLUDE 234 BEDS AT THE [facility] Last Admin: 09/17/17 09:48 Dose: 1 patch Pantoprazole Sodium (Protonix Inj) 40 mg IVP BID COUNTS INCLUDE 234 BEDS AT THE [facility] Last Admin: 09/17/17 09:42 Dose: 40 mg Ticagrelor (Brilinta) 90 mg PO BID COUNTS INCLUDE 234 BEDS AT THE [facility] Last Admin: 09/12/17 10:29 Dose: 90 mg Vitamin A (Vitamin A & D Oint Ud Foilpak) 1 ea TOP Q8 PRN PRN Reason: Dry skin Last Admin: 09/16/17 10:02 Dose: 1 ea - Labs Labs: 09/17/17 05:00 09/17/17 05:00 PT 15.3 SECONDS (9.4-12.5) H 09/14/17 16:20 INR 1.33 (0.93-1.08) H 09/14/17 16:20 APTT 45.1 Seconds (25.1-36.5) H 09/15/17 08:15 - Additional Findings Additional findings: - Constitutional Appears: Chronically Ill, remains intubated - Head Exam Head Exam: NORMAL INSPECTION, NORMOCEPHALIC - Eye Exam Eye Exam: Normal appearance. absent: Conjunctival injection, Scleral icterus - ENT Exam Additional comments: ET tube in place. - Respiratory Exam Additional comments: Intubated on vent PRVC settings - Cardiovascular Exam Cardiovascular Exam: S1 S2 absent: Murmur - GI/Abdominal Exam GI & Abdominal Exam: Soft, Normal Bowel Sounds. absent: Firm, Guarding, Rigid, Tenderness - Extremities Exam Extremities Exam: Normal Inspection - Neurological Exam Additional comments: moving extremities, opens eyes spontaneously. Sedated on propofol. - Psychiatric Exam Additional comments: intubated - Skin Skin Exam: Dry, Intact Assessment and Plan - Assessment and Plan (Free Text) Assessment: 67 yr old male with PMH with CAD s/p 15 stents, COPD, rheumatoid arthritis found to be in hypoxic respiratory distress, ARDS, NSTEMI, community acquired pneumonia and septic shock secondary to urosepsis with positive blood cultures: Hypernatremia: - Na 155->151 today - C/w free water replacement and D5W at 60 ml/h. - ICU management NSTEMI - troponin elevated - Cardiology (Dr. Arias) following, recs appreciated * Unstable for Cardiac cath * Echo: dilated LV, EF 25-30%, hypokinesis of LV, trace AR, mild/mod MR, mild TR, dilated IVC - ASA - C/w lovenox [address] Arias - heparin drip held. - Hold brilinta due to anemia, per Cardio - holding Beta blockers 2/2 hypotension - holding crestor 2/2 rhabdo and elevated LFTs Respiratory failure - pneumonia vs acute decompensated CHF vs. history of COPD - intubated and sedated on precedex and propofol. - on dobutamine drip, midodrine - CT chest: New alveolar and interstitial infiltrates are seen in both lower lobes as well as the right upper lobe. This is superimposed upon chronic emphysematous changes - ABG showing respiratory alkalosis - negative for MRSA - flu negative - legionella negative - duonebs OLMAN and PRN - lasix 40 IV q 12h - Merrem and Doxy D7; Zyvox D3, Mycamine, Hypokalemia: - repleted - Cont to monitor EMMA - Lasix prn - will monitor - nephro on board. appreciate recs - In negative balance today with I&Os. UO adequate. UTI - Repeat blood and urine culture negative - UA showing elevated leuk esterase and nitrate - blood cultures showing E. coli - urine culture showing E. coli - abx as above E. coli bacteremia - blood and urine cultures positive for E. coli - Repeat blood and urine prelim negative - Sputum: + yeast - ID consulted, recs appreciated - abx as above Left inguinal hernia - CT abd/pel:There is a 5 cm diameter left inguinal hernia that contains a portion of the sigmoid colon. There is no obstruction - not causing problems at this time Hypotension - dobutamine gtt, and midodrine - Maintain MAP above 65 - holding beta adali for now Immunocompromised 2/2 RA - Bactrim for PCP ppx discontinued due to renal impairment PPX * GI protonix * DVT heparin drip Dispo: Possible tracheostomy Discussed with Dr. Barroso. <Gracia Barroso - Last Filed: 09/17/17 11:18> Objective - Vital Signs/Intake and Output Vital Signs (last 24 hours): Temp Pulse Resp BP Pulse Ox 99.8 F H 91 H 31 H 128/62 98 09/17/17 04:00 09/17/17 06:10 09/17/17 08:07 09/17/17 09:41 09/17/17 08:07 Intake and Output: 09/17/17 09/17/17 06:59 18:59 Intake Total 2421.5 1.5 Output Total 2650 Balance -228.5 1.5 - Medications Medications: Current Medications Albuterol/Ipratropium (Duoneb 3 Mg/0.5 Mg (3 Ml) Ud) 3 ml IH Q2H PRN PRN Reason: Shortness of Breath Last Admin: 09/07/17 04:25 Dose: 3 ml Albuterol/Ipratropium (Duoneb 3 Mg/0.5 Mg (3 Ml) Ud) 3 ml IH [id number] COUNTS INCLUDE 234 BEDS AT THE [facility] Last Admin: 09/17/17 08:07 Dose: 3 ml Artificial Tears (Artificial Tears Opht Oint) 0 gm OU Q12 PRN PRN Reason: Dry eyes Aspirin (Aspirin Chewable) 81 mg PO DAILY COUNTS INCLUDE 234 BEDS AT THE [facility] Last Admin: 09/17/17 09:42 Dose: 81 mg Bacitracin (Bacitracin) 0 gm TOP BID COUNTS INCLUDE 234 BEDS AT THE [facility] Last Admin: 09/17/17 10:13 Dose: 1 applic Calcium Acetate (Phoslo) 1,334 mg PO WM COUNTS INCLUDE 234 BEDS AT [facility] Last Admin: 09/17/17 09:44 Dose: Not Given Enoxaparin Sodium (Lovenox) 100 mg SC Q24H OLMAN PRN Reason: Protocol Last Admin: 09/17/17 09:41 Dose: 100 mg Furosemide (Lasix) 40 mg IVP Q12 COUNTS INCLUDE 234 BEDS AT [facility] Last Admin: 09/17/17 09:41 Dose: 40 mg Dobutamine HCl/Dextrose (Dobutamine/Dextrose 5% 500mg/250ml) 500 mg in 250 mls @ 7.327 mls/hr IV .Q24H PRN; Protocol; 2.5 MCG/KG/MIN PRN Reason: TITRATE PER PROTOCOL Last Admin: 09/16/17 05:22 Dose: 5 mcg/kg/min, 14.654 mls/hr Dexmedetomidine HCl (Precedex 4 Mcg/Ml (100 Ml)) 400 mcg in 100 mls @ 4.853 mls /hr IV .[id number] PRN; Protocol; 0.2 MCG/KG/HR PRN Reason: Agitation Last Admin: 09/17/17 05:32 Dose: 1.2 mcg/kg/hr, 29.121 mls/hr Linezolid (Zyvox 600mg/300ml D5w) 600 mg in 300 mls @ 200 mls/hr IVPB Q12 OLMAN PRN Reason: Protocol Stop: 09/21/17 10:01 Last Admin: 09/17/17 09:41 Dose: 200 mls/hr Propofol (Diprivan) 1,000 mg in 100 mls @ 2.912 mls/hr IV .Q24H PRN; Protocol; 5 MCG/KG/MIN PRN Reason: TITRATE PER MD ORDER Last Admin: 09/17/17 09:45 Dose: 40 mcg/kg/min, 23.297 mls/hr Dextrose (Dextrose 5% In Water 1000 Ml) 1,000 mls @ 60 mls/hr IV .[id number] OLMAN Last Admin: 09/17/17 06:03 Dose: 60 mls/hr Micafungin Sodium 100 mg/ (Dextrose) 100 mls @ 100 mls/hr IV DAILY OLMAN PRN Reason: Protocol Stop: 09/22/17 10:01 Last Admin: 09/17/17 09:43 Dose: 100 mls/hr Doxycycline Hyclate 100 mg/ (Dextrose) 100 mls @ 100 mls/hr IVPB Q12 OLMAN PRN Reason: Protocol Stop: 09/19/17 22:01 Last Admin: 09/17/17 09:43 Dose: 100 mls/hr Meropenem 1 gm/ Dextrose 100 mls @ 100 mls/hr IVPB Q12 OLMAN PRN Reason: Protocol Stop: 09/23/17 10:16 Last Admin: 09/17/17 09:43 Dose: 100 mls/hr Insulin Human Regular (Humulin R High) 0 units SC Q4H OLMAN PRN Reason: Protocol Morphine Sulfate (Morphine) 4 mg IVP Q6H PRN PRN Reason: Agitation Last Admin: 09/17/17 06:00 Dose: 4 mg Nicotine (Nicoderm Cq) 1 patch TD DAILY COUNTS INCLUDE 234 BEDS AT THE [facility] Last Admin: 09/17/17 09:48 Dose: 1 patch Pantoprazole Sodium (Protonix Inj) 40 mg IVP BID COUNTS INCLUDE 234 BEDS AT THE [facility] Last Admin: 09/17/17 09:42 Dose: 40 mg Ticagrelor (Brilinta) 90 mg PO BID COUNTS INCLUDE 234 BEDS AT THE [facility] Last Admin: 09/12/17 10:29 Dose: 90 mg Vitamin A (Vitamin A & D Oint Ud Foilpak) 1 ea TOP Q8 PRN PRN Reason: Dry skin Last Admin: 09/16/17 10:02 Dose: 1 ea - Labs Labs: 09/17/17 05:00 09/17/17 05:00 PT 15.3 SECONDS (9.4-12.5) H 09/14/17 16:20 INR 1.33 (0.93-1.08) H 09/14/17 16:20 APTT 45.1 Seconds (25.1-36.5) H 09/15/17 08:15 Attending/Attestation - Attestation I have personally seen and examined this patient.: Yes I have fully participated in the care of the patient.: Yes I have reviewed all pertinent clinical information, including history, physical exam and plan: Yes Notes (Text): 09/17/17 11:12 Patient was seen and examined with medical physics researcher. 67 yrs old male with PMHx of CAD,SP Multiple cardiac stents,CHF with systolic dysfunction. Rheumatoid arthritis and HTN was admitted with , NSTEMI, and gram negative bacteremia, went into respiratory failure, ARDS, septic/ cardiogenic shock, requiring vasopressors, also has AF Patient is intubated, sedated, off pressor. Patient is still hypoxic requiring high FIO2 .Chest X rays showed bilateral alevaolar infiltrates likely combination of Pneumonia with Pulmonary edema, patient is still very hypoxic , .FIO 2 requirement is still 50%,Critical care team is managing respiratory failure. Sepsis on IV antibiotics as per ID for Pneumonia and Ecoli Bacteremia.Repeat blood cultures are negative.Patient is still having low grade fever.Sputum cultures grew yeast, started on Linezolide,Meropenem and Micafungin as per ID. Renal failure, improving Creatinin has come down to 1.3, had good urine out put, we will monitor BUN and creatinin with diuresis. Hypokalemia , will gave replacement. Hypernatremic, is slightly better, on free water via NGT and D 5 W Anemia,Hemoglobin is stable, on anticoagulation for AF , will monitor hemoglobin . Prognosis is guarded.
--- NOTE | 2017-09-17 11:11 | CP.PCM.PN ---
<Spring Li - Last Filed: 09/17/17 11:03> Subjective - Date & Time of Evaluation Date of Evaluation: 09/17/17 Time of Evaluation: 11:03 - Subjective Subjective: ICU Progress Note for Billy Crawley PGY2 Patient seen and examined at bedside. There were no acute overnight events as per nursing staff. Patient is intubated, sedated but arousable and following commands. ROS could not be obtained. Yesterday patient was taken off of Propofol and was agitated this am. Propofol was restarted. Objective - Vital Signs/Intake and Output Vital Signs (last 24 hours): Temp Pulse Resp BP Pulse Ox 99.8 F H 91 H 31 H 128/62 98 09/17/17 04:00 09/17/17 06:10 09/17/17 08:07 09/17/17 09:41 09/17/17 08:07 Intake and Output: 09/17/17 09/17/17 06:59 18:59 Intake Total 2421.5 1.5 Output Total 2650 Balance -228.5 1.5 - Medications Medications: Current Medications Albuterol/Ipratropium (Duoneb 3 Mg/0.5 Mg (3 Ml) Ud) 3 ml IH Q2H PRN PRN Reason: Shortness of Breath Last Admin: 09/07/17 04:25 Dose: 3 ml Albuterol/Ipratropium (Duoneb 3 Mg/0.5 Mg (3 Ml) Ud) 3 ml IH [id number] [facility] Last Admin: 09/17/17 08:07 Dose: 3 ml Artificial Tears (Artificial Tears Opht Oint) 0 gm OU Q12 PRN PRN Reason: Dry eyes Aspirin (Aspirin Chewable) 81 mg PO DAILY [facility] Last Admin: 09/17/17 09:42 Dose: 81 mg Bacitracin (Bacitracin) 0 gm TOP BID [facility] Last Admin: 09/17/17 10:13 Dose: 1 applic Calcium Acetate (Phoslo) 1,334 mg PO WM [facility] Last Admin: 09/17/17 09:44 Dose: Not Given Enoxaparin Sodium (Lovenox) 100 mg SC Q24H [facility] PRN Reason: Protocol Last Admin: 09/17/17 09:41 Dose: 100 mg Furosemide (Lasix) 40 mg IVP Q12 [facility] Last Admin: 09/17/17 09:41 Dose: 40 mg Dobutamine HCl/Dextrose (Dobutamine/Dextrose 5% 500mg/250ml) 500 mg in 250 mls @ 7.327 mls/hr IV .Q24H PRN; Protocol; 2.5 MCG/KG/MIN PRN Reason: TITRATE PER PROTOCOL Last Admin: 09/16/17 05:22 Dose: 5 mcg/kg/min, 14.654 mls/hr Dexmedetomidine HCl (Precedex 4 Mcg/Ml (100 Ml)) 400 mcg in 100 mls @ 4.853 mls /hr IV .[id number] PRN; Protocol; 0.2 MCG/KG/HR PRN Reason: Agitation Last Admin: 09/17/17 05:32 Dose: 1.2 mcg/kg/hr, 29.121 mls/hr Linezolid (Zyvox 600mg/300ml D5w) 600 mg in 300 mls @ 200 mls/hr IVPB Q12 [facility] PRN Reason: Protocol Stop: 09/21/17 10:01 Last Admin: 09/17/17 09:41 Dose: 200 mls/hr Propofol (Diprivan) 1,000 mg in 100 mls @ 2.912 mls/hr IV .Q24H PRN; Protocol; 5 MCG/KG/MIN PRN Reason: TITRATE PER MD ORDER Last Admin: 09/17/17 09:45 Dose: 40 mcg/kg/min, 23.297 mls/hr Dextrose (Dextrose 5% In Water 1000 Ml) 1,000 mls @ 60 mls/hr IV .[id number] [facility] Last Admin: 09/17/17 06:03 Dose: 60 mls/hr Micafungin Sodium 100 mg/ (Dextrose) 100 mls @ 100 mls/hr IV DAILY [facility] PRN Reason: Protocol Stop: 09/22/17 10:01 Last Admin: 09/17/17 09:43 Dose: 100 mls/hr Doxycycline Hyclate 100 mg/ (Dextrose) 100 mls @ 100 mls/hr IVPB Q12 [facility] PRN Reason: Protocol Stop: 09/19/17 22:01 Last Admin: 09/17/17 09:43 Dose: 100 mls/hr Meropenem 1 gm/ Dextrose 100 mls @ 100 mls/hr IVPB Q12 [facility] PRN Reason: Protocol Stop: 09/23/17 10:16 Last Admin: 09/17/17 09:43 Dose: 100 mls/hr Insulin Human Regular (Humulin R High) 0 units SC Q4H [facility] PRN Reason: Protocol Morphine Sulfate (Morphine) 4 mg IVP Q6H PRN PRN Reason: Agitation Last Admin: 09/17/17 06:00 Dose: 4 mg Nicotine (Nicoderm Cq) 1 patch TD DAILY [facility] Last Admin: 09/17/17 09:48 Dose: 1 patch Pantoprazole Sodium (Protonix Inj) 40 mg IVP BID [facility] Last Admin: 09/17/17 09:42 Dose: 40 mg Ticagrelor (Brilinta) 90 mg PO BID [facility] Last Admin: 09/12/17 10:29 Dose: 90 mg Vitamin A (Vitamin A & D Oint Ud Foilpak) 1 ea TOP Q8 PRN PRN Reason: Dry skin Last Admin: 09/16/17 10:02 Dose: 1 ea - Labs Labs: 09/17/17 05:00 09/17/17 05:00 PT 15.3 SECONDS (9.4-12.5) H 09/14/17 16:20 INR 1.33 (0.93-1.08) H 09/14/17 16:20 APTT 45.1 Seconds (25.1-36.5) H 09/15/17 08:15 - Constitutional Appears: No Acute Distress - Head Exam Head Exam: ATRAUMATIC, NORMAL INSPECTION, NORMOCEPHALIC - Eye Exam Eye Exam: Normal appearance, PERRL Pupil Exam: NORMAL ACCOMODATION, PERRL - ENT Exam ENT Exam: Mucous Membranes Moist - Respiratory Exam Respiratory Exam: Rhonchi (bilaterally diffuse ), NORMAL BREATHING PATTERN. absent: Rales, Wheezes - Cardiovascular Exam Cardiovascular Exam: REGULAR RHYTHM, +S1, +S2. absent: Gallop, Rubs, Murmur - GI/Abdominal Exam GI & Abdominal Exam: Soft, Normal Bowel Sounds. absent: Tenderness, Mass, Rebound - Extremities Exam Extremities Exam: Normal Inspection. absent: Pedal Edema - Neurological Exam Neurological Exam: Alert, Awake, CN II-XII Intact - Skin Skin Exam: Dry, Warm Assessment and Plan - Assessment and Plan (Free Text) Assessment: This is 67 yr old male with PMH with CAD s/p 15 stents, COPD, rheumatoid arthritis found to be in hypoxic respiratory distress, ARDS, NSTEMI, community acquired pneumonia and septic shock secondary to urosepsis with positive blood cultures. Patient is noted to have pulmonary edema as well as EMMA (improved). Plan: Neuro: Intubated, Sedated Precedex and now with Propofol Morphine prn agitation Maintain normothermia CV: NSTEMI w/ Hx of CAD and 15 stents a.fib (rate controlled) CXR showed pulmonary edema (worsening) despite urine output of 5L Continue [id number] Continue Dobutamine and Midodrine, ASA, Lipitor Cardio on consult-recs appreciated Maintain MAP >65 Monitor I&O Pulm: Hypoxic Resp failure, Community acquired pneumonia as well as pulm vasc congestion Intubated on PRVC- will wean as tolerated Continue Lasix Titrate to maintain spO2>92% Protective Vent strategy HOB elevated, aspiration precaution Continue Duoneb, Nicotine patch GI: Tube feeds on hold for fluid overload Free water flushes only for hypernatremia Heme: Anemia- Hgb stable- no overt signs of bleeding Continue ASA, and Lovenox Will continue to monitor CBC Nephro: Hypernatremia-improving - continue free water flushes and D5W@60 Hypokalemia Nephro consulted- recs appreciated Contintue to monitor electrolytes and replace as needed Maintain euvolemia and monitor I&O Continue Phoslo ID: Afebrile, leukocytosis trending down Urosepsis, Community Acquired pneumonia (improving) Blood culture and urine culture + for G- lauren. Repeat blood and urine Cultures all now negative Yeast in trach Repeat PCT 1.92 trending down ID on consult- recs appreciated Continue Merrem, Zyvox, Doxy and Micofungin Endo: Hx of DM Insulin drip d/c, started on ISS BGM q4h Maintain euglycemia (140-180) GI ppx: Protonix DVT ppx: Lovenox Dispo: Patient will be evaluated for trach and LTAC. Case seen, discussed reviewed with attending. Billy Li PGY2 <Mack Hart - Last Filed: 09/17/17 11:32> Objective - Vital Signs/Intake and Output Vital Signs (last 24 hours): Temp Pulse Resp BP Pulse Ox 99.8 F H 91 H 31 H 128/62 98 09/17/17 04:00 09/17/17 06:10 09/17/17 08:07 09/17/17 09:41 09/17/17 08:07 Intake and Output: 09/17/17 09/17/17 06:59 18:59 Intake Total 2421.5 1.5 Output Total 2650 Balance -228.5 1.5 - Medications Medications: Current Medications Albuterol/Ipratropium (Duoneb 3 Mg/0.5 Mg (3 Ml) Ud) 3 ml IH Q2H PRN PRN Reason: Shortness of Breath Last Admin: 09/07/17 04:25 Dose: 3 ml Albuterol/Ipratropium (Duoneb 3 Mg/0.5 Mg (3 Ml) Ud) 3 ml IH [id number] [facility] Last Admin: 09/17/17 08:07 Dose: 3 ml Artificial Tears (Artificial Tears Opht Oint) 0 gm OU Q12 PRN PRN Reason: Dry eyes Aspirin (Aspirin Chewable) 81 mg PO DAILY [facility] Last Admin: 09/17/17 09:42 Dose: 81 mg Bacitracin (Bacitracin) 0 gm TOP BID [facility] Last Admin: 09/17/17 10:13 Dose: 1 applic Calcium Acetate (Phoslo) 1,334 mg PO WM [facility] Last Admin: 09/17/17 09:44 Dose: Not Given Enoxaparin Sodium (Lovenox) 100 mg SC Q24H [facility] PRN Reason: Protocol Last Admin: 09/17/17 09:41 Dose: 100 mg Furosemide (Lasix) 40 mg IVP Q12 [facility] Last Admin: 09/17/17 09:41 Dose: 40 mg Dobutamine HCl/Dextrose (Dobutamine/Dextrose 5% 500mg/250ml) 500 mg in 250 mls @ 7.327 mls/hr IV .Q24H PRN; Protocol; 2.5 MCG/KG/MIN PRN Reason: TITRATE PER PROTOCOL Last Admin: 09/16/17 05:22 Dose: 5 mcg/kg/min, 14.654 mls/hr Dexmedetomidine HCl (Precedex 4 Mcg/Ml (100 Ml)) 400 mcg in 100 mls @ 4.853 mls /hr IV .[id number] PRN; Protocol; 0.2 MCG/KG/HR PRN Reason: Agitation Last Admin: 09/17/17 05:32 Dose: 1.2 mcg/kg/hr, 29.121 mls/hr Linezolid (Zyvox 600mg/300ml D5w) 600 mg in 300 mls @ 200 mls/hr IVPB Q12 [facility] PRN Reason: Protocol Stop: 09/21/17 10:01 Last Admin: 09/17/17 09:41 Dose: 200 mls/hr Propofol (Diprivan) 1,000 mg in 100 mls @ 2.912 mls/hr IV .Q24H PRN; Protocol; 5 MCG/KG/MIN PRN Reason: TITRATE PER MD ORDER Last Admin: 09/17/17 09:45 Dose: 40 mcg/kg/min, 23.297 mls/hr Dextrose (Dextrose 5% In Water 1000 Ml) 1,000 mls @ 60 mls/hr IV .[id number] [facility] Last Admin: 09/17/17 06:03 Dose: 60 mls/hr Micafungin Sodium 100 mg/ (Dextrose) 100 mls @ 100 mls/hr IV DAILY [facility] PRN Reason: Protocol Stop: 09/22/17 10:01 Last Admin: 09/17/17 09:43 Dose: 100 mls/hr Doxycycline Hyclate 100 mg/ (Dextrose) 100 mls @ 100 mls/hr IVPB Q12 [facility] PRN Reason: Protocol Stop: 09/19/17 22:01 Last Admin: 09/17/17 09:43 Dose: 100 mls/hr Meropenem 1 gm/ Dextrose 100 mls @ 100 mls/hr IVPB Q12 [facility] PRN Reason: Protocol Stop: 09/23/17 10:16 Last Admin: 09/17/17 09:43 Dose: 100 mls/hr Insulin Human Regular (Humulin R High) 0 units SC Q4H [facility] PRN Reason: Protocol Morphine Sulfate (Morphine) 4 mg IVP Q6H PRN PRN Reason: Agitation Last Admin: 09/17/17 06:00 Dose: 4 mg Nicotine (Nicoderm Cq) 1 patch TD DAILY [facility] Last Admin: 09/17/17 09:48 Dose: 1 patch Pantoprazole Sodium (Protonix Inj) 40 mg IVP BID [facility] Last Admin: 09/17/17 09:42 Dose: 40 mg Ticagrelor (Brilinta) 90 mg PO BID [facility] Last Admin: 09/12/17 10:29 Dose: 90 mg Vitamin A (Vitamin A & D Oint Ud Foilpak) 1 ea TOP Q8 PRN PRN Reason: Dry skin Last Admin: 09/16/17 10:02 Dose: 1 ea - Labs Labs: 09/17/17 05:00 09/17/17 05:00 PT 15.3 SECONDS (9.4-12.5) H 09/14/17 16:20 INR 1.33 (0.93-1.08) H 09/14/17 16:20 APTT 45.1 Seconds (25.1-36.5) H 09/15/17 08:15 Assessment and Plan - Assessment and Plan (Free Text) Plan: Patient seen and examined with resident, agree with note with following additions/exceptions: Patient is 67yo male with PMHx of CAD with 15 stents, RA on MTX, HTN, presented with NSTEMI, and gram negative bacteremia, subsequently went into respiratory failure, ARDS, septic/cardiogenic shock, requiring vasopressors. Pt was intubated, sedated, paralyzed, placed on low tidal vol (6cc/PBW). Currently intubated, sedated, off Levophed/Vasopressin/Paralytics, on Dobutamine. ECHO with EF 25%. CXR with bilateral alevaolar infiltrates likely combination of PNA with Pulm edema which is worsening, being diuresed. FiO2/PEEP requirements are downtrending, currently on FiO2 50%, PEEP 12, sat 94- 96%. Clinically improving, slowly. Respiratory failure ARDS, resolving PNA Cardiogenic Pulm edema RA on MTX NSTEMI Septic Shock, resolved Cardiogenic Shock, resolved Renal Failure Recommend: - cont with ventilatory support, low tidal vol ventilation, goal plateau<30, ABG monitoring, titrate Fio2 down, daily CPAP trials - taper IV steroids - IV diuresis, Lasix, monitor UOP, monitor electrolytes - Cont with broad spectrum antibiocs, as per ID - follow up repeat Blood culture, Procal - follow up ID - cont with Dobutamine - ASA, Plavix, Statin, heparin drip - Follow up Cardiology - Free water flushes, monitor Na - FS control - GI ppx - DVT ppx - Feeds patient at high risk for morbidity and mortality critical care time 35 minutes
[2017-09-17] MEDS: Insulin Reg-HIGH-Coverage SC SCH ×3 (12:20→20:19)
--- NOTE | 2017-09-17 16:50 | CP.PCM.PN ---
Subjective - Date & Time of Evaluation Date of Evaluation: 09/17/17 Time of Evaluation: 16:48 - Subjective Subjective: Follow up Nephrology Consultation: please call us if any qs or concerns at Assessment: critical Acute Kidney Injury (N17.9) sec to ATN from sepsis syndrome/cardiogenic shock hyperkalemia hypernatremia alkalemia azotemia combined respi and metabolic acidosis with lactic acidosis with acute hypoxic hypercapneic respi failure acute CHF with cardiogenic shock with acute FL Urosepsis DM, HTN, CAD s/p stent, COPD with emphysema and active smoker Plan Azotemia continues to improve continue free water flush thus far tolerating diuretic - continue to monitor for any worsening of na or hco3 on phoslo, phos ordered for tomorrow remains critically ill discussed w/ icu team S: seen and examined remains critically ill on vent Physical Examination: General Appearance: ill appearing, orally intubated Head; Atraumatic, normocephalic ENT: orally intubated EYES: Sclera is anicteric. Neck; supple Lungs: mechanical bs and dec at bases R > L Heart: Increased rate. s1s2 normal. No rub or gallop. Extremities: no edema. No varicose veins Neurological: Patient is sedated Skin: Warm and dry Abdomen: Abdomen is soft. Bowel sounds +. Psych: unable cxr: reviewed Objective - Vital Signs/Intake and Output Vital Signs (last 24 hours): Temp Pulse Resp BP Pulse Ox 98.1 F 97 H 31 H 144/78 98 09/17/17 11:49 09/17/17 14:00 09/17/17 08:07 09/17/17 15:23 09/17/17 08:07 Intake and Output: 09/17/17 09/17/17 06:59 18:59 Intake Total 2421.5 1.5 Output Total 2650 Balance -228.5 1.5 - Medications Medications: Current Medications Albuterol/Ipratropium (Duoneb 3 Mg/0.5 Mg (3 Ml) Ud) 3 ml IH Q2H PRN PRN Reason: Shortness of Breath Last Admin: 09/07/17 04:25 Dose: 3 ml Albuterol/Ipratropium (Duoneb 3 Mg/0.5 Mg (3 Ml) Ud) 3 ml IH [id number] [facility] Last Admin: 09/17/17 13:29 Dose: 3 ml Artificial Tears (Artificial Tears Opht Oint) 0 gm OU Q12 PRN PRN Reason: Dry eyes Aspirin (Aspirin Chewable) 81 mg PO DAILY [facility] Last Admin: 09/17/17 09:42 Dose: 81 mg Bacitracin (Bacitracin) 0 gm TOP BID [facility] Last Admin: 09/17/17 10:13 Dose: 1 applic Calcium Acetate (Phoslo) 1,334 mg PO WM [facility] Last Admin: 09/17/17 12:21 Dose: Not Given Enoxaparin Sodium (Lovenox) 100 mg SC Q24H [facility] PRN Reason: Protocol Last Admin: 09/17/17 09:41 Dose: 100 mg Furosemide (Lasix) 40 mg IVP Q12 [facility] Dobutamine HCl/Dextrose (Dobutamine/Dextrose 5% 500mg/250ml) 500 mg in 250 mls @ 7.327 mls/hr IV .Q24H PRN; Protocol; 2.5 MCG/KG/MIN PRN Reason: TITRATE PER PROTOCOL Last Admin: 09/16/17 05:22 Dose: 5 mcg/kg/min, 14.654 mls/hr Dexmedetomidine HCl (Precedex 4 Mcg/Ml (100 Ml)) 400 mcg in 100 mls @ 4.853 mls /hr IV .[id number] PRN; Protocol; 0.2 MCG/KG/HR PRN Reason: Agitation Last Admin: 09/17/17 05:32 Dose: 1.2 mcg/kg/hr, 29.121 mls/hr Linezolid (Zyvox 600mg/300ml D5w) 600 mg in 300 mls @ 200 mls/hr IVPB Q12 [facility] PRN Reason: Protocol Stop: 09/21/17 10:01 Last Admin: 09/17/17 09:41 Dose: 200 mls/hr Propofol (Diprivan) 1,000 mg in 100 mls @ 2.912 mls/hr IV .Q24H PRN; Protocol; 5 MCG/KG/MIN PRN Reason: TITRATE PER MD ORDER Last Admin: 09/17/17 09:45 Dose: 40 mcg/kg/min, 23.297 mls/hr Dextrose (Dextrose 5% In Water 1000 Ml) 1,000 mls @ 60 mls/hr IV .[id number] [facility] Last Admin: 09/17/17 14:07 Dose: 60 mls/hr Micafungin Sodium 100 mg/ (Dextrose) 100 mls @ 100 mls/hr IV DAILY [facility] PRN Reason: Protocol Stop: 09/22/17 10:01 Last Admin: 09/17/17 09:43 Dose: 100 mls/hr Doxycycline Hyclate 100 mg/ (Dextrose) 100 mls @ 100 mls/hr IVPB Q12 [facility] PRN Reason: Protocol Stop: 09/19/17 22:01 Last Admin: 09/17/17 09:43 Dose: 100 mls/hr Meropenem 1 gm/ Dextrose 100 mls @ 100 mls/hr IVPB Q12 [facility] PRN Reason: Protocol Stop: 09/23/17 10:16 Last Admin: 09/17/17 09:43 Dose: 100 mls/hr Insulin Human Regular (Humulin R High) 0 units SC Q4 [facility] PRN Reason: Protocol Last Admin: 09/17/17 12:20 Dose: 4 units Morphine Sulfate (Morphine) 4 mg IVP Q6H PRN PRN Reason: Agitation Last Admin: 09/17/17 06:00 Dose: 4 mg Nicotine (Nicoderm Cq) 1 patch TD DAILY [facility] Last Admin: 09/17/17 09:48 Dose: 1 patch Pantoprazole Sodium (Protonix Inj) 40 mg IVP BID [facility] Last Admin: 09/17/17 09:42 Dose: 40 mg Ticagrelor (Brilinta) 90 mg PO BID [facility] Last Admin: 09/12/17 10:29 Dose: 90 mg Vitamin A (Vitamin A & D Oint Ud Foilpak) 1 ea TOP Q8 PRN PRN Reason: Dry skin Last Admin: 09/16/17 10:02 Dose: 1 ea - Labs Labs: 09/17/17 05:00 09/17/17 05:00 PT 15.3 SECONDS (9.4-12.5) H 09/14/17 16:20 INR 1.33 (0.93-1.08) H 09/14/17 16:20 APTT 45.1 Seconds (25.1-36.5) H 09/15/17 08:15
[2017-09-17] MEDS: DOBUTamine 500mg/250ml D5W 500 MG/250 ML BAG IV PRN (17:22)
--- NOTE | 2017-09-17 18:45 | PN ---
DATE: SUBJECTIVE: The patient seen earlier this morning in the ICU, bed number 5, 876. The patient remains intubated on a ventilator, poor condition. PHYSICAL EXAMINATION: VITAL SIGNS: Temperature is 98, blood pressure is 114/66, respiratory rate on a vent, heart rate of 99. HEENT: Reveals ET tube in place. NECK: Supple. LUNGS: Have decreased breath sounds. HEART: Normal S1 and S2. ABDOMEN: Soft, nontender. No rebound or guarding. LABORATORY DATA: Reveals a white count of 13,200, hemoglobin of 8, platelets of 224. Chemistries reveals a BUN of 78, creatinine is 1.3. Urinalysis is noted. Serology is noted. Microbiology is noted. Review of orders reveals the patient to be on dobutamine, meropenem, micafungin, doxycycline, linezolid. The patient had yeast in the sputum, yeast in the trach. Blood cultures are negative from 09/14/2017. ASSESSMENT AND PLAN: A 67-year-old male with severe sepsis, status post septic shock, ventilator-dependent, respiratory failure, renal failure, admitted with Escherichia coli bacteremia, urine as the source, on top of acute myocardial infarction and pulmonary edema, and healthcare-associated pneumonia, history of acute cholecystitis, status post laparoscopic cholecystectomy, on day #8 of meropenem and doxycycline, day #3 of Zyvox, day #4 of Mycamine. The patient had a history of rheumatoid arthritis, and overall prognosis is poor and this patient was intubated on a ventilator who is admitted with septic shock and Escherichia coli bacteremia. Azael Lara MD
[2017-09-18] MEDS: DOBUTamine 500mg/250ml D5W 500 MG/250 ML BAG IV PRN (00:28)
[2017-09-18] MEDS: Insulin Reg-HIGH-Coverage SC SCH ×6 (00:49→20:00)
[2017-09-18] MEDS: Albuterol-Ipratrop 3 mg / 0.5 (3 ml) UD IH SCH ×4 (01:03→19:41)
[2017-09-18] MEDS: Propofol 10 mg/ml 1,000 MG/100 ML VIAL IV PRN ×2 (03:15→10:02)
[2017-09-18 04:47] LABS: ARTERIAL BLOOD GAS HCO3 30.6 mmol/L (21-28); ARTERIAL BLOOD GAS HEMOGLOBIN 8.9 g/dL (11.7-17.4); ARTERIAL BLOOD GAS O2 CAPACITY 12.1 mL/dl (16-24); ARTERIAL BLOOD GAS O2 CONTENT 11.5 ML/dl (15-23); ARTERIAL BLOOD GAS O2 SAT 94.7 % (95-98); ARTERIAL BLOOD GAS PCO2 42 mm/Hg (35-45); ARTERIAL BLOOD GAS PH 7.47 (7.35-7.45); ARTERIAL BLOOD GAS TCO2 31.9 mmol.L (22-28)
[2017-09-18 06:11] LABS: BASO # 0.01 K/mm3 (0.0-2.0); BASO % 0.1 % (0.0-3.0); EOS # 0.1 (0.0-0.7); EOS % 0.4 % (1.5-5.0); GRAN # 11.51 (1.4-6.5); GRAN % 83.9 % (50.0-68.0); HEMOGLOBIN 8.3 g/dL (14.0-18.0); LYMPH # 1.5 (1.2-3.4); LYMPH % 10.6 % (22.0-35.0); MEAN CELL VOLUME 97.5 fl (80.0-105.0); MEAN CORPUSCULAR HEMOGLOBIN 29.6 pg (25.0-35.0); MEAN CORPUSCULAR HGB CONC 30.4 g/dl (31.0-37.0); MEAN PLATELET VOLUME 10.9 fl (7.0-11.0); MONO # 0.7 (0.1-0.6); RBC 2.8 10^6/uL (3.5-6.1); RED CELL DISTRIBUTION WIDTH 17.3 % (11.5-14.5); WHITE BLOOD COUNT 13.7 10^3/ul (4.5-11.0)
[2017-09-18 06:42] LABS: ALB/GLOB RATIO 0.9 (1.1-1.8); ALBUMIN 2.8 g/dL (3.0-4.8); ALT/SGPT 108 U/L (7-56); AST/SGOT 137 U/L (17-59); BLOOD UREA NITROGEN 68 mg/dL (7-21); CALCIUM 8.2 mg/dL (8.4-10.5); GFR AFRICAN-AMERICAN > 60; GFR NON-AFRICAN AMERICAN 50
[2017-09-18] MEDS: Linezolid 600 mg in D5W 300 ml 600 MG/300 ML BAG IVPB SCH ×2 (09:51→23:17)
[2017-09-18] MEDS: WATER IVPB SCH ×2 (09:52→22:50)
[2017-09-18] MEDS: DOXYCYCLINE HYCLATE IVPB SCH ×2 (09:52→22:50)
[2017-09-18] MEDS: DEXTROSE 5% IVPB SCH ×2 (09:52→22:50)
[2017-09-18] MEDS: Meropenem 1 GM in Dextrose 5% In Water 100 ML IVPB SCH ×2 (09:52→22:27)
[2017-09-18] MEDS: Micafungin 100 MG in Dextrose 5% In Water 100 ML IV SCH (09:52)
[2017-09-18] MEDS: Enoxaparin 100 mg Syringe SC SCH (09:57)
[2017-09-18] MEDS: Bacitracin Ointment 30 GM TUBE TOP SCH ×2 (10:02→17:27)
--- NOTE | 2017-09-18 10:12 | CP.PCM.PN ---
Subjective - Date & Time of Evaluation Date of Evaluation: 09/18/17 Time of Evaluation: 07:35 - Subjective Subjective: Pt seen and examine,d remains intubated, on PRVC. Objective - Vital Signs/Intake and Output Vital Signs (last 24 hours): Temp Pulse Resp BP Pulse Ox 100.7 F H 108 H 31 H 146/70 98 09/18/17 00:00 09/18/17 08:00 09/17/17 08:07 09/18/17 09:57 09/17/17 08:07 Intake and Output: 09/18/17 09/18/17 06:59 18:59 Intake Total 450 100 Balance 450 100 - Medications Medications: Current Medications Albuterol/Ipratropium (Duoneb 3 Mg/0.5 Mg (3 Ml) Ud) 3 ml IH Q2H PRN PRN Reason: Shortness of Breath Last Admin: 09/07/17 04:25 Dose: 3 ml Albuterol/Ipratropium (Duoneb 3 Mg/0.5 Mg (3 Ml) Ud) 3 ml IH [id number] [facility] Last Admin: 09/18/17 07:48 Dose: 3 ml Artificial Tears (Artificial Tears Opht Oint) 0 gm OU Q12 PRN PRN Reason: Dry eyes Aspirin (Aspirin Chewable) 81 mg PO DAILY [facility] Last Admin: 09/18/17 09:57 Dose: 81 mg Bacitracin (Bacitracin) 0 gm TOP BID [facility] Last Admin: 09/18/17 10:02 Dose: 1 applic Calcium Acetate (Phoslo) 1,334 mg PO WM [facility] Last Admin: 09/18/17 08:16 Dose: Not Given Enoxaparin Sodium (Lovenox) 100 mg SC Q24H [facility] PRN Reason: Protocol Last Admin: 09/18/17 09:57 Dose: 100 mg Furosemide (Lasix) 60 mg IVP Q12 [facility] Dobutamine HCl/Dextrose (Dobutamine/Dextrose 5% 500mg/250ml) 500 mg in 250 mls @ 7.327 mls/hr IV .Q24H PRN; Protocol; 2.5 MCG/KG/MIN PRN Reason: TITRATE PER PROTOCOL Last Titration: 09/18/17 00:30 Dose: 2.5 mcg/kg/min, 7.327 mls/hr Dexmedetomidine HCl (Precedex 4 Mcg/Ml (100 Ml)) 400 mcg in 100 mls @ 4.853 mls /hr IV .[id number] PRN; Protocol; 0.2 MCG/KG/HR PRN Reason: Agitation Last Admin: 09/17/17 05:32 Dose: 1.2 mcg/kg/hr, 29.121 mls/hr Linezolid (Zyvox 600mg/300ml D5w) 600 mg in 300 mls @ 200 mls/hr IVPB Q12 [facility] PRN Reason: Protocol Stop: 09/21/17 10:01 Last Admin: 09/18/17 09:51 Dose: 200 mls/hr Propofol (Diprivan) 1,000 mg in 100 mls @ 2.912 mls/hr IV .Q24H PRN; Protocol; 5 MCG/KG/MIN PRN Reason: TITRATE PER MD ORDER Last Admin: 09/18/17 10:02 Dose: 40 mcg/kg/min, 23.297 mls/hr Micafungin Sodium 100 mg/ (Dextrose) 100 mls @ 100 mls/hr IV DAILY [facility] PRN Reason: Protocol Stop: 09/22/17 10:01 Last Admin: 09/18/17 09:52 Dose: 100 mls/hr Doxycycline Hyclate 100 mg/ (Dextrose) 100 mls @ 100 mls/hr IVPB Q12 [facility] PRN Reason: Protocol Stop: 09/19/17 22:01 Last Admin: 09/18/17 09:52 Dose: 100 mls/hr Meropenem 1 gm/ Dextrose 100 mls @ 100 mls/hr IVPB Q12 [facility] PRN Reason: Protocol Stop: 09/23/17 10:16 Last Admin: 09/18/17 09:52 Dose: 100 mls/hr Insulin Human Regular (Humulin R High) 0 units SC Q4 [facility] PRN Reason: Protocol Last Admin: 09/18/17 08:29 Dose: 2 units Morphine Sulfate (Morphine) 4 mg IVP Q6H PRN PRN Reason: Agitation Last Admin: 09/17/17 17:28 Dose: 4 mg Nicotine (Nicoderm Cq) 1 patch TD DAILY [facility] Last Admin: 09/18/17 09:53 Dose: 1 patch Pantoprazole Sodium (Protonix Inj) 40 mg IVP BID [facility] Last Admin: 09/18/17 09:53 Dose: 40 mg Ticagrelor (Brilinta) 90 mg PO BID [facility] Last Admin: 09/12/17 10:29 Dose: 90 mg Vitamin A (Vitamin A & D Oint Ud Foilpak) 1 ea TOP Q8 PRN PRN Reason: Dry skin Last Admin: 09/16/17 10:02 Dose: 1 ea - Labs Labs: 09/18/17 05:45 09/18/17 05:45 PT 15.3 SECONDS (9.4-12.5) H 09/14/17 16:20 INR 1.33 (0.93-1.08) H 09/14/17 16:20 APTT 45.1 Seconds (25.1-36.5) H 09/15/17 08:15 - Constitutional Appears: Non-toxic, No Acute Distress - Eye Exam Eye Exam: Normal appearance - ENT Exam ENT Exam: Mucous Membranes Moist - Respiratory Exam Respiratory Exam: Rales, NORMAL BREATHING PATTERN - Cardiovascular Exam Cardiovascular Exam: REGULAR RHYTHM, +S1, +S2 - GI/Abdominal Exam GI & Abdominal Exam: Soft, Normal Bowel Sounds - Extremities Exam Extremities Exam: Pedal Edema - Neurological Exam Neurological Exam: Altered Assessment and Plan - Assessment and Plan (Free Text) Assessment: Patient is 67yo male with PMHx of CAD with 15 stents, RA on MTX, HTN, presented with NSTEMI, and gram negative bacteremia, subsequently went into respiratory failure, ARDS, septic/cardiogenic shock, requiring vasopressors. Pt was intubated, sedated, paralyzed, placed on low tidal vol (6cc/PBW). Currently intubated, sedated, off Levophed/Vasopressin/Paralytics, on Dobutamine. ECHO with EF 25%. CXR with bilateral alevaolar infiltrates likely combination of PNA with Pulm edema which is worsening, being diuresed. FiO2/PEEP requirements are downtrending, currently on FiO2 50%, PEEP 10, sat 96- 99%. Clinically improving, slowly. Awaiting trach tomorrow Respiratory failure ARDS, resolving PNA Cardiogenic Pulm edema RA on MTX NSTEMI Septic Shock, resolved Cardiogenic Shock, resolved Renal Failure Recommend: - cont with ventilatory support, low tidal vol ventilation, goal plateau<30, ABG monitoring, titrate Fio2 down, daily CPAP trials, awaiting trach tomorrow - CXR with worsening pulm edema, increase dose of Lasix 60mg IV q12h - taper IV steroids - Cont with broad spectrum antibiocs, as per ID - follow up ID - cont with Dobutamine - ASA, Plavix, Statin, Lovenox - Follow up Cardiology - Free water flushes, monitor Na, DC D5W, Na improving - FS control - GI ppx - DVT ppx - Feeds - trach tomorrow with ENT patient at high risk for morbidity and mortality critical care time 35 minutes
[2017-09-18] MEDS ORDERED: Potassium Chloride 20 mEq/15 ml LIQ UD PO STA (10:46)
--- NOTE | 2017-09-18 10:54 | RAD ---
HISTORY: Intubated, pulmonary edema. COMPARISON: Multiple serial examinations preceding the most recent study: September 17, 2017. FINDINGS: LUNGS: Worsening pulmonary edema. PLEURA: No significant pleural effusion identified, no pneumothorax apparent. CARDIOVASCULAR: No significant interval change compared to the prior examination(s).PICC line in satisfactory position OSSEOUS STRUCTURES: No significant abnormalities. VISUALIZED UPPER ABDOMEN: Normal. OTHER FINDINGS: Stable position of support apparatus including nasogastric tube and endotracheal tube. IMPRESSION: Worsening pulmonary edema.
--- NOTE | 2017-09-18 12:10 | CP.PCM.PN ---
<Ana Interiano - Last Filed: 09/18/17 12:06> Subjective - Date & Time of Evaluation Date of Evaluation: 09/18/17 Time of Evaluation: 12:06 - Subjective Subjective: Ana Interiano, PGY1, Medicine Progress Note for Dr Barroso: Patient seen and examined at bedside. Pt had low grade fever overnight. Pt remains intubated and sedated. Responds to pain. ROS unobtainable as pt is intubated/sedated Objective - Vital Signs/Intake and Output Vital Signs (last 24 hours): Temp Pulse Resp BP Pulse Ox 100.7 F H 108 H 36 H 141/73 100 09/18/17 00:00 09/18/17 08:00 09/18/17 07:48 09/18/17 10:12 09/18/17 07:48 Intake and Output: 09/18/17 09/18/17 06:59 18:59 Intake Total 450 100 Balance 450 100 - Medications Medications: Current Medications Albuterol/Ipratropium (Duoneb 3 Mg/0.5 Mg (3 Ml) Ud) 3 ml IH Q2H PRN PRN Reason: Shortness of Breath Last Admin: 09/07/17 04:25 Dose: 3 ml Albuterol/Ipratropium (Duoneb 3 Mg/0.5 Mg (3 Ml) Ud) 3 ml IH [id number] [facility] Last Admin: 09/18/17 07:48 Dose: 3 ml Artificial Tears (Artificial Tears Opht Oint) 0 gm OU Q12 PRN PRN Reason: Dry eyes Aspirin (Aspirin Chewable) 81 mg PO DAILY [facility] Last Admin: 09/18/17 09:57 Dose: 81 mg Bacitracin (Bacitracin) 0 gm TOP BID [facility] Last Admin: 09/18/17 10:02 Dose: 1 applic Calcium Acetate (Phoslo) 1,334 mg PO WM [facility] Last Admin: 09/18/17 08:16 Dose: Not Given Enoxaparin Sodium (Lovenox) 100 mg SC Q24H [facility] PRN Reason: Protocol Last Admin: 09/18/17 09:57 Dose: 100 mg Furosemide (Lasix) 60 mg IVP Q12 [facility] Last Admin: 09/18/17 10:12 Dose: 60 mg Dobutamine HCl/Dextrose (Dobutamine/Dextrose 5% 500mg/250ml) 500 mg in 250 mls @ 7.327 mls/hr IV .Q24H PRN; Protocol; 2.5 MCG/KG/MIN PRN Reason: TITRATE PER PROTOCOL Last Titration: 09/18/17 00:30 Dose: 2.5 mcg/kg/min, 7.327 mls/hr Dexmedetomidine HCl (Precedex 4 Mcg/Ml (100 Ml)) 400 mcg in 100 mls @ 4.853 mls /hr IV .[id number] PRN; Protocol; 0.2 MCG/KG/HR PRN Reason: Agitation Last Admin: 09/17/17 05:32 Dose: 1.2 mcg/kg/hr, 29.121 mls/hr Linezolid (Zyvox 600mg/300ml D5w) 600 mg in 300 mls @ 200 mls/hr IVPB Q12 [facility] PRN Reason: Protocol Stop: 09/21/17 10:01 Last Admin: 09/18/17 09:51 Dose: 200 mls/hr Propofol (Diprivan) 1,000 mg in 100 mls @ 2.912 mls/hr IV .Q24H PRN; Protocol; 5 MCG/KG/MIN PRN Reason: TITRATE PER MD ORDER Last Admin: 09/18/17 10:02 Dose: 40 mcg/kg/min, 23.297 mls/hr Micafungin Sodium 100 mg/ (Dextrose) 100 mls @ 100 mls/hr IV DAILY [facility] PRN Reason: Protocol Stop: 09/22/17 10:01 Last Admin: 09/18/17 09:52 Dose: 100 mls/hr Doxycycline Hyclate 100 mg/ (Dextrose) 100 mls @ 100 mls/hr IVPB Q12 [facility] PRN Reason: Protocol Stop: 09/19/17 22:01 Last Admin: 09/18/17 09:52 Dose: 100 mls/hr Meropenem 1 gm/ Dextrose 100 mls @ 100 mls/hr IVPB Q12 [facility] PRN Reason: Protocol Stop: 09/23/17 10:16 Last Admin: 09/18/17 09:52 Dose: 100 mls/hr Insulin Human Regular (Humulin R High) 0 units SC Q4 [facility] PRN Reason: Protocol Last Admin: 09/18/17 08:29 Dose: 2 units Metoprolol Tartrate (Lopressor) 25 mg PO BID [facility] Morphine Sulfate (Morphine) 4 mg IVP Q6H PRN PRN Reason: Agitation Last Admin: 09/17/17 17:28 Dose: 4 mg Nicotine (Nicoderm Cq) 1 patch TD DAILY [facility] Last Admin: 09/18/17 09:53 Dose: 1 patch Pantoprazole Sodium (Protonix Inj) 40 mg IVP BID [facility] Last Admin: 09/18/17 09:53 Dose: 40 mg Ticagrelor (Brilinta) 90 mg PO BID [facility] Last Admin: 09/12/17 10:29 Dose: 90 mg Vitamin A (Vitamin A & D Oint Ud Foilpak) 1 ea TOP Q8 PRN PRN Reason: Dry skin Last Admin: 09/16/17 10:02 Dose: 1 ea - Labs Labs: 09/18/17 05:45 09/18/17 05:45 PT 15.3 SECONDS (9.4-12.5) H 09/14/17 16:20 INR 1.33 (0.93-1.08) H 09/14/17 16:20 APTT 45.1 Seconds (25.1-36.5) H 09/15/17 08:15 - Additional Findings Additional findings: - Constitutional Appears: Chronically Ill, remains intubated - Head Exam Head Exam: NORMAL INSPECTION, NORMOCEPHALIC - Eye Exam Eye Exam: Normal appearance. absent: Conjunctival injection, Scleral icterus - ENT Exam Additional comments: ET tube in place. - Respiratory Exam Additional comments: Intubated on vent PRVC settings - Cardiovascular Exam Cardiovascular Exam: S1 S2 absent: Murmur - GI/Abdominal Exam GI & Abdominal Exam: Soft, Normal Bowel Sounds. absent: Firm, Guarding, Rigid, Tenderness - Extremities Exam Extremities Exam: Normal Inspection - Neurological Exam Additional comments: responds to pain. Sedated on propofol. - Psychiatric Exam Additional comments: intubated - Skin Skin Exam: Dry, Intact Assessment and Plan - Assessment and Plan (Free Text) Assessment: 67 yr old male with PMH with CAD s/p 15 stents, COPD, rheumatoid arthritis found to be in hypoxic respiratory distress, ARDS, NSTEMI, community acquired pneumonia and septic shock secondary to urosepsis with positive blood cultures: Hypernatremia: - resolved - Na 147 today - Cont to monitor NSTEMI - troponin elevated - Cardiology (Dr. Arias) following, recs appreciated * Unstable for Cardiac cath * Echo: dilated LV, EF 25-30%, hypokinesis of LV, trace AR, mild/mod MR, mild TR, dilated IVC - ASA - C/w lovenox [address] Arias - heparin drip held. - Hold brilinta due to anemia, per Cardio - holding Beta blockers 2/2 hypotension - holding crestor 2/2 rhabdo and elevated LFTs Respiratory failure - pneumonia vs acute decompensated CHF vs. history of COPD - intubated and sedated on precedex and propofol. - on dobutamine drip, midodrine - CT chest: New alveolar and interstitial infiltrates are seen in both lower lobes as well as the right upper lobe. This is superimposed upon chronic emphysematous changes - ABG showing respiratory alkalosis - negative for MRSA - flu negative - legionella negative - duonebs [facility] and PRN - lasix 40 IV q 12h - Merrem and Doxy D7; Zyvox D3, Mycamine, Hypokalemia: - repleted - Cont to monitor EMMA - Lasix 40 IV q12 - will monitor - nephro on board. appreciate recs UTI - Repeat blood and urine culture negative - UA showing elevated leuk esterase and nitrate - blood cultures showing E. coli - urine culture showing E. coli - abx as above E. coli bacteremia - blood and urine cultures positive for E. coli - Repeat blood and urine prelim negative - Sputum: + yeast - ID consulted, recs appreciated - abx as above Left inguinal hernia - CT abd/pel:There is a 5 cm diameter left inguinal hernia that contains a portion of the sigmoid colon. There is no obstruction - not causing problems at this time Hypotension - dobutamine gtt, and midodrine - Maintain MAP above 65 - holding beta adali for now Immunocompromised 2/2 RA - Bactrim for PCP ppx discontinued due to renal impairment PPX * GI protonix * DVT heparin drip Dispo: Possible tracheostomy Discussed with Dr. Barroso. <Gracia Barroso - Last Filed: 09/18/17 16:11> Objective - Vital Signs/Intake and Output Vital Signs (last 24 hours): Temp Pulse Resp BP Pulse Ox 100.7 F H 96 H 36 H 146/81 100 09/18/17 00:00 09/18/17 14:00 09/18/17 07:48 09/18/17 12:31 09/18/17 07:48 Intake and Output: 09/18/17 09/18/17 06:59 18:59 Intake Total 450 100 Balance 450 100 - Medications Medications: Current Medications Albuterol/Ipratropium (Duoneb 3 Mg/0.5 Mg (3 Ml) Ud) 3 ml IH Q2H PRN PRN Reason: Shortness of Breath Last Admin: 09/07/17 04:25 Dose: 3 ml Albuterol/Ipratropium (Duoneb 3 Mg/0.5 Mg (3 Ml) Ud) 3 ml IH [id number] [facility] Last Admin: 09/18/17 13:47 Dose: 3 ml Artificial Tears (Artificial Tears Opht Oint) 0 gm OU Q12 PRN PRN Reason: Dry eyes Aspirin (Aspirin Chewable) 81 mg PO DAILY [facility] Last Admin: 09/18/17 09:57 Dose: 81 mg Bacitracin (Bacitracin) 0 gm TOP BID [facility] Last Admin: 09/18/17 10:02 Dose: 1 applic Calcium Acetate (Phoslo) 1,334 mg PO WM [facility] Last Admin: 09/18/17 12:27 Dose: Not Given Enoxaparin Sodium (Lovenox) 100 mg SC Q24H [facility] PRN Reason: Protocol Last Admin: 09/18/17 09:57 Dose: 100 mg Furosemide (Lasix) 60 mg IVP Q12 [facility] Last Admin: 09/18/17 10:12 Dose: 60 mg Dobutamine HCl/Dextrose (Dobutamine/Dextrose 5% 500mg/250ml) 500 mg in 250 mls @ 7.327 mls/hr IV .Q24H PRN; Protocol; 2.5 MCG/KG/MIN PRN Reason: TITRATE PER PROTOCOL Last Titration: 09/18/17 00:30 Dose: 2.5 mcg/kg/min, 7.327 mls/hr Dexmedetomidine HCl (Precedex 4 Mcg/Ml (100 Ml)) 400 mcg in 100 mls @ 4.853 mls /hr IV .[id number] PRN; Protocol; 0.2 MCG/KG/HR PRN Reason: Agitation Last Admin: 09/17/17 05:32 Dose: 1.2 mcg/kg/hr, 29.121 mls/hr Linezolid (Zyvox 600mg/300ml D5w) 600 mg in 300 mls @ 200 mls/hr IVPB Q12 [facility] PRN Reason: Protocol Stop: 09/21/17 10:01 Last Admin: 09/18/17 09:51 Dose: 200 mls/hr Propofol (Diprivan) 1,000 mg in 100 mls @ 2.912 mls/hr IV .Q24H PRN; Protocol; 5 MCG/KG/MIN PRN Reason: TITRATE PER MD ORDER Last Admin: 09/18/17 10:02 Dose: 40 mcg/kg/min, 23.297 mls/hr Micafungin Sodium 100 mg/ (Dextrose) 100 mls @ 100 mls/hr IV DAILY [facility] PRN Reason: Protocol Stop: 09/22/17 10:01 Last Admin: 09/18/17 09:52 Dose: 100 mls/hr Doxycycline Hyclate 100 mg/ (Dextrose) 100 mls @ 100 mls/hr IVPB Q12 [facility] PRN Reason: Protocol Stop: 09/19/17 22:01 Last Admin: 09/18/17 09:52 Dose: 100 mls/hr Meropenem 1 gm/ Dextrose 100 mls @ 100 mls/hr IVPB Q12 [facility] PRN Reason: Protocol Stop: 09/23/17 10:16 Last Admin: 09/18/17 09:52 Dose: 100 mls/hr Insulin Human Regular (Humulin R High) 0 units SC Q4 [facility] PRN Reason: Protocol Last Admin: 09/18/17 12:26 Dose: 4 units Metoprolol Tartrate (Lopressor) 25 mg PO BID [facility] Morphine Sulfate (Morphine) 4 mg IVP Q6H PRN PRN Reason: Agitation Last Admin: 09/17/17 17:28 Dose: 4 mg Nicotine (Nicoderm Cq) 1 patch TD DAILY [facility] Last Admin: 09/18/17 09:53 Dose: 1 patch Pantoprazole Sodium (Protonix Inj) 40 mg IVP BID [facility] Last Admin: 09/18/17 09:53 Dose: 40 mg Ticagrelor (Brilinta) 90 mg PO BID [facility] Last Admin: 09/12/17 10:29 Dose: 90 mg Vitamin A (Vitamin A & D Oint Ud Foilpak) 1 ea TOP Q8 PRN PRN Reason: Dry skin Last Admin: 09/16/17 10:02 Dose: 1 ea - Labs Labs: 09/18/17 05:45 09/18/17 05:45 PT 15.3 SECONDS (9.4-12.5) H 09/14/17 16:20 INR 1.33 (0.93-1.08) H 09/14/17 16:20 APTT 45.1 Seconds (25.1-36.5) H 09/15/17 08:15 Attending/Attestation - Attestation I have personally seen and examined this patient.: Yes I have fully participated in the care of the patient.: Yes I have reviewed all pertinent clinical information, including history, physical exam and plan: Yes Notes (Text): 09/18/17 16:08 Patient was seen and examined with biomedical engineering technologist. 67 yrs old male with PMHx of CAD,SP Multiple cardiac stents,CHF with systolic dysfunction. Rheumatoid arthritis and HTN was admitted with , NSTEMI, and gram negative bacteremia, went into respiratory failure, ARDS, septic/ cardiogenic shock, requiring vasopressors, also has atrial Fibrilation Patient is still hypoxic requiring high FIO2 .Chest X rays showed bilateral alevaolar infiltrates likely combination of Pneumonia with Pulmonary edema, patient is still very hypoxic , .FIO 2 requirement is still 50%,Critical care team is managing respiratory failure. Sepsis on IV antibiotics as per ID for Pneumonia and Ecoli Bacteremia.Repeat blood cultures are negative.Patient is still having low grade fever.Sputum cultures grew yeast, started on Linezolide,Meropenem and Micafungin as per ID..We will get right upper quadrant USG to rule out cholycystitis. Renal failure, improving Creatinin has come down to 1.4, had good urine out put, we will monitor BUN and creatinin with diuresis. Hypernatremic, is improving Anemia,Hemoglobin is stable, on eanticoagulation with lovenox for AF , will monitor hemoglobin . Prognosis is guarded.
--- NOTE | 2017-09-18 13:02 | CP.PCM.PN ---
Subjective - Date & Time of Evaluation Date of Evaluation: 09/18/17 Time of Evaluation: 13:02 - Subjective Subjective: Follow up Nephrology Consultation: please call us if any qs or concerns at Assessment: critical Acute Kidney Injury (N17.9) sec to ATN from sepsis syndrome/cardiogenic shock hyperkalemia hypernatremia alkalemia azotemia combined respi and metabolic acidosis with lactic acidosis with acute hypoxic hypercapneic respi failure acute CHF with cardiogenic shock with acute ME Urosepsis DM, HTN, CAD s/p stent, COPD with emphysema and active smoker Plan Azotemia continues to improve continue free water flush recc try to reduce some of his inputs on phoslo remains critically ill discussed w/ icu team S: seen and examined remains critically ill on vent Physical Examination: General Appearance: ill appearing, orally intubated Head; Atraumatic, normocephalic ENT: orally intubated EYES: Sclera is anicteric. Neck; supple Lungs: mechanical bs and dec at bases R > L Heart: Increased rate. s1s2 normal. No rub or gallop. Extremities: no edema. No varicose veins Neurological: Patient is sedated Skin: Warm and dry Abdomen: Abdomen is soft. Bowel sounds +. Psych: unable cxr: reviewed Objective - Vital Signs/Intake and Output Vital Signs (last 24 hours): Temp Pulse Resp BP Pulse Ox 100.7 F H 111 H 36 H 146/81 100 09/18/17 00:00 09/18/17 12:31 09/18/17 07:48 09/18/17 12:31 09/18/17 07:48 Intake and Output: 09/18/17 09/18/17 06:59 18:59 Intake Total 450 100 Balance 450 100 - Medications Medications: Current Medications Albuterol/Ipratropium (Duoneb 3 Mg/0.5 Mg (3 Ml) Ud) 3 ml IH Q2H PRN PRN Reason: Shortness of Breath Last Admin: 09/07/17 04:25 Dose: 3 ml Albuterol/Ipratropium (Duoneb 3 Mg/0.5 Mg (3 Ml) Ud) 3 ml IH [id number] [facility] Last Admin: 09/18/17 07:48 Dose: 3 ml Artificial Tears (Artificial Tears Opht Oint) 0 gm OU Q12 PRN PRN Reason: Dry eyes Aspirin (Aspirin Chewable) 81 mg PO DAILY [facility] Last Admin: 09/18/17 09:57 Dose: 81 mg Bacitracin (Bacitracin) 0 gm TOP BID [facility] Last Admin: 09/18/17 10:02 Dose: 1 applic Calcium Acetate (Phoslo) 1,334 mg PO WM [facility] Last Admin: 09/18/17 12:27 Dose: Not Given Enoxaparin Sodium (Lovenox) 100 mg SC Q24H [facility] PRN Reason: Protocol Last Admin: 09/18/17 09:57 Dose: 100 mg Furosemide (Lasix) 60 mg IVP Q12 [facility] Last Admin: 09/18/17 10:12 Dose: 60 mg Dobutamine HCl/Dextrose (Dobutamine/Dextrose 5% 500mg/250ml) 500 mg in 250 mls @ 7.327 mls/hr IV .Q24H PRN; Protocol; 2.5 MCG/KG/MIN PRN Reason: TITRATE PER PROTOCOL Last Titration: 09/18/17 00:30 Dose: 2.5 mcg/kg/min, 7.327 mls/hr Dexmedetomidine HCl (Precedex 4 Mcg/Ml (100 Ml)) 400 mcg in 100 mls @ 4.853 mls /hr IV .[id number] PRN; Protocol; 0.2 MCG/KG/HR PRN Reason: Agitation Last Admin: 09/17/17 05:32 Dose: 1.2 mcg/kg/hr, 29.121 mls/hr Linezolid (Zyvox 600mg/300ml D5w) 600 mg in 300 mls @ 200 mls/hr IVPB Q12 [facility] PRN Reason: Protocol Stop: 09/21/17 10:01 Last Admin: 09/18/17 09:51 Dose: 200 mls/hr Propofol (Diprivan) 1,000 mg in 100 mls @ 2.912 mls/hr IV .Q24H PRN; Protocol; 5 MCG/KG/MIN PRN Reason: TITRATE PER MD ORDER Last Admin: 09/18/17 10:02 Dose: 40 mcg/kg/min, 23.297 mls/hr Micafungin Sodium 100 mg/ (Dextrose) 100 mls @ 100 mls/hr IV DAILY [facility] PRN Reason: Protocol Stop: 09/22/17 10:01 Last Admin: 09/18/17 09:52 Dose: 100 mls/hr Doxycycline Hyclate 100 mg/ (Dextrose) 100 mls @ 100 mls/hr IVPB Q12 [facility] PRN Reason: Protocol Stop: 09/19/17 22:01 Last Admin: 09/18/17 09:52 Dose: 100 mls/hr Meropenem 1 gm/ Dextrose 100 mls @ 100 mls/hr IVPB Q12 [facility] PRN Reason: Protocol Stop: 09/23/17 10:16 Last Admin: 09/18/17 09:52 Dose: 100 mls/hr Insulin Human Regular (Humulin R High) 0 units SC Q4 [facility] PRN Reason: Protocol Last Admin: 09/18/17 12:26 Dose: 4 units Metoprolol Tartrate (Lopressor) 25 mg PO BID [facility] Morphine Sulfate (Morphine) 4 mg IVP Q6H PRN PRN Reason: Agitation Last Admin: 09/17/17 17:28 Dose: 4 mg Nicotine (Nicoderm Cq) 1 patch TD DAILY [facility] Last Admin: 09/18/17 09:53 Dose: 1 patch Pantoprazole Sodium (Protonix Inj) 40 mg IVP BID [facility] Last Admin: 09/18/17 09:53 Dose: 40 mg Ticagrelor (Brilinta) 90 mg PO BID [facility] Last Admin: 09/12/17 10:29 Dose: 90 mg Vitamin A (Vitamin A & D Oint Ud Foilpak) 1 ea TOP Q8 PRN PRN Reason: Dry skin Last Admin: 09/16/17 10:02 Dose: 1 ea - Labs Labs: 09/18/17 05:45 09/18/17 05:45 PT 15.3 SECONDS (9.4-12.5) H 09/14/17 16:20 INR 1.33 (0.93-1.08) H 09/14/17 16:20 APTT 45.1 Seconds (25.1-36.5) H 09/15/17 08:15
--- NOTE | 2017-09-18 14:18 | PN ---
DATE: 09/18/2017 SUBJECTIVE: The patient is in bed, in no acute distress, in ICU, remains intubated on a ventilator. PHYSICAL EXAMINATION: VITAL SIGNS: Temperature of 100.7, respiratory rate on the vent, heart rate of 108, blood pressure is 140/70. HEENT: Examination of HEENT is unremarkable. NECK: Supple. LUNGS: Decreased breath sounds. HEART: Normal S1, S2. ABDOMEN: Soft, nontender. No rebound or guarding. LABORATORY EXAMINATION: Reveals a white count of 13,700, hemoglobin of 8, platelets of 244. BUN of 68, creatinine of 1.4. AST is 137, ALT is 108. The urinalysis is noted. Influenza is noted to be negative. Microbiology is noted. Review of orders reveals the patient to be on dobutamine, meropenem, doxycycline, linezolid, and micafungin. ASSESSMENT AND PLAN: This is a 67-year-old male, admitted with severe sepsis with septic shock, ventilator-dependent respiratory failure, renal failure with Escherichia coli bacteremia, urine as the source, on top of acute myocardial infarction, pulmonary edema, healthcare-associated pneumonia, and on day #9 of meropenem and doxycycline, day #4 of Zyvox day, #5 of Mycamine now with a new fever. We will repeat blood cultures x2, urine culture, sputum culture, urinalysis, and procalcitonin. The patient did have a chest x-ray this morning, which shows worsening pulmonary and edema. May consider a CAT scan of the abdomen and pelvis, and one was done on the September 06, approximately 11 to 12 days ago. Consider the concerns about this new fever with LFT elevations with a normal alk phos. Overall prognosis is poor. Azael Lara MD
--- NOTE | 2017-09-18 23:23 | CON ---
DATE: 09/18/2017 REQUESTING PHYSICIAN: [facility] ICU. REASON FOR CONSULTATION: Ventilatory-dependent respiratory failure, tracheostomy tube placement. HISTORY OF PRESENT ILLNESS: The patient is a 67-year-old male with extensive past medical history significant for coronary artery disease, status post 15 stents in the past, rheumatoid arthritis, on methotrexate, hypertension as well as congestive heart failure, who was admitted to [facility] on 09/06/2017 with an NSTEMI, found to have also gram-negative bacteremia. He required intensive care unit stay and his stay has been complicated by pneumonia, ARDS and sepsis initially requiring vasopressor support. He was intubated 10 days prior for respiratory failure. He has been unable to be weaned from ventilatory support given his tenuous pulmonary and cardiac status. Otolaryngology service is consulted for evaluation of possible tracheostomy tube placement. At the time of consultation, the patient is unable to elicit history given his current status. History was elicited from chart review and discussion with the and son. They deny any history of neck surgeries or chronic neck issues. PAST MEDICAL HISTORY: As above. MEDICATIONS: Were reviewed, significant for aspirin, Lovenox and Brilinta. He is currently on a dobutamine drip. ALLERGIES: NO KNOWN DRUG ALLERGIES. SOCIAL HISTORY: Unable to be obtained. REVIEW OF SYSTEMS: Unable to be obtained given the patient's current status. PHYSICAL EXAMINATION: VITAL SIGNS: Temperature is 100.7, pulse is 108, blood pressure is 141/73, respiratory rate is 24. He is currently requiring ventilator support with an FiO2 of 50%, maintaining saturation of 98% and he has a PEEP of 10. GENERAL: The patient is an ill-appearing 67-year-old male. He is sedated in the ICU, lying supine on hospital bed with his head of bed elevated at 30 degrees. HEENT: Head is atraumatic, normocephalic. appears symmetrical. Ears are grossly unremarkable bilaterally. There is no mass or lesion noted. Nares are patent. Oral cavity/oropharynx: The patient has endotracheal tube in place. There is no orogastric tube in place. NECK: Supple. There is no obvious surgical scars. There are no crepitus to the neck. There is no collection. The trachea appears midline. He has palpable landmarks. LABORATORY DATA: White count is 13.7, hemoglobin is 8.7, platelets are 244. Coagulation profile reveals a PTT of 45 on 09/15/2017. Chemistries reveal an AST of 137, ALT of 108. Otherwise, relatively unremarkable. RADIOGRAPHIC STUDIES: The patient had a chest x-ray performed on 09/18/2017, which reveals worsening pulmonary edema, but no significant pleural effusion is identified or pneumothorax. The patient has stable position of nasogastric and endotracheal tube. ASSESSMENT AND PLAN: The patient is a 67-year-old male with multiple medical comorbidities inclusive of significant coronary artery disease with stenting, currently on anticoagulation, who is admitted with acute respiratory distress syndrome and sepsis. He currently has been intubated for 10 days and has ventilatory-dependent respiratory failure with inability to wean secondary to poor pulmonary and cardiac status. PLAN: Would be to proceed for with tracheostomy tube placement. This will happen likely tomorrow, 09/19/2017. We recommend holding all anticoagulation at this time for the next 24 hours. He should be n.p.o. with no tube feeds running past midnight. We will follow the patient postoperatively. Discussion was held with his son at bedside and the , Estela Russell via the telephone at [phone] regarding the tracheostomy tube placement. Purposes, risks, benefits of the procedure were discussed in detail with the and the son. Risks were detailed inclusive of but not limited to pain, infection, bleeding, scarring, possible pneumothorax, loss of airway and were all described. They both expressed clear verbal understanding of surgical plan and wished to proceed forward with planned operative intervention. Findings and plans were discussed in detail with the nursing staff and the ICU staff. Consent form was witnessed via the telephone by the nursing staff. Thank you for allowing us to participate in the patient's care. Jean Paul Edwards DO
[2017-09-19] MEDS: Insulin Reg-HIGH-Coverage SC SCH ×6 (00:43→22:01)
[2017-09-19] MEDS: Propofol 10 mg/ml 1,000 MG/100 ML VIAL IV PRN ×3 (01:24→22:21)
[2017-09-19] MEDS: Albuterol-Ipratrop 3 mg / 0.5 (3 ml) UD IH SCH ×5 (02:18→19:26)
[2017-09-19] MEDS: DOBUTamine 500mg/250ml D5W 500 MG/250 ML BAG IV PRN (06:55)
[2017-09-19 07:19] LABS: BASO # 0.02 K/mm3 (0.0-2.0); BASO % 0.2 % (0.0-3.0); EOS % 0.3 % (1.5-5.0); GRAN # 10.69 (1.4-6.5); GRAN % 83.5 % (50.0-68.0); HEMOGLOBIN 8.9 g/dL (14.0-18.0); LYMPH # 1.4 (1.2-3.4); LYMPH % 11.2 % (22.0-35.0); MEAN CELL VOLUME 96.6 fl (80.0-105.0); MEAN CORPUSCULAR HEMOGLOBIN 30.1 pg (25.0-35.0); MEAN CORPUSCULAR HGB CONC 31.1 g/dl (31.0-37.0); MEAN PLATELET VOLUME 11.2 fl (7.0-11.0); MONO # 0.6 (0.1-0.6); MONO % 4.8 % (1.0-6.0); RBC 2.96 10^6/uL (3.5-6.1); RED CELL DISTRIBUTION WIDTH 17.7 % (11.5-14.5); WHITE BLOOD COUNT 12.8 10^3/ul (4.5-11.0)
--- NOTE | 2017-09-19 07:41 | CP.CCUPN ---
<Vanna Rodríguez - Last Filed: 09/19/17 13:25> CCU Subjective - Physician Review Subjective (Free Text): 09/19/17 0700 Patient is still intubated. Responds to verbal and tactile stimulus. Following simple commands. As per nurse, patient had normal bowel movement last night. Afebrile. Critical Care Time Spent (in minutes): 45 CCU Objective - Vital Signs / Intake & Output Vital Signs (Last 4 hours): Vital Signs Temp 09/19/17 04:00 99.0 F Intake and Output (Last 8hrs): Intake & Output 09/18/17 09/19/17 09/19/17 22:59 06:59 14:59 Intake Total 2450 250 1750 Output Total 1950 1750 Balance 500 250 0 Intake: IV 850 250 550 Left Antecubital 550 Left Upper arm 850 Oral 1600 Other 1200 Output: Urine 1950 1750 Urethral (Escamilla) 1950 1750 Other: # Bowel Movements 1 - Physical Exam Head: Positive for: Atraumatic, Normocephalic Pupils: Positive for: PERRL Extroacular Muscles: Positive for: EOMI Conjunctiva: Positive for: Normal Mouth: Positive for: Moist Mucous Membranes Neck: Positive for: Normal Range of Motion Respiratory/Chest: Positive for: Clear to Auscultation, Good Air Exchange. Negative for: Respiratory Distress, Accessory Muscle Use Cardiovascular: Positive for: Regular Rate and Rhythm, Normal S1, S2. Negative for: Murmurs Abdomen: Positive for: Normal Bowel Sounds. Negative for: Tenderness, Distention, Peritoneal Signs Back: Positive for: Normal Inspection Upper Extremity: Positive for: Normal Inspection. Negative for: Cyanosis, Edema Lower Extremity: Positive for: Normal Inspection. Negative for: Edema Neurological: Positive for: GCS=15, CN II-XII Intact, Speech Normal Skin: Positive for: Warm, Dry, Normal Color. Negative for: Rashes Psychiatric: Positive for: Alert, Oriented x 3, Normal Insight, Normal Concentration - Medications Active Medications: Active Medications Generic Name Dose Route Start Last Admin Trade Name Freq PRN Reason Stop Dose Admin Albuterol/Ipratropium 3 ml 09/06/17 17:41 09/07/17 04:25 Duoneb 3 Mg/0.5 Mg (3 Ml) Ud IH 3 ml Q2H PRN Administration Shortness of Breath Albuterol/Ipratropium 3 ml 09/07/17 02:00 09/19/17 03:18 Duoneb 3 Mg/0.5 Mg (3 Ml) Ud IH 3 ml [id number] OMLAN Administration Artificial Tears 0 gm 09/17/17 09:48 Artificial Tears Opht Oint OU Q12 PRN Dry eyes Aspirin 81 mg 09/08/17 10:45 09/18/17 09:57 Aspirin Chewable PO 81 mg DAILY OLMAN Administration Bacitracin 0 gm 09/16/17 10:30 09/18/17 17:27 Bacitracin TOP 1 applic BID OLMAN Administration Calcium Acetate 1,334 mg 09/14/17 12:00 09/18/17 17:22 Phoslo PO Not Given WM OLMAN Enoxaparin Sodium 100 mg 09/15/17 10:00 09/18/17 09:57 Lovenox SC 100 mg Q24H OLMAN Administration Protocol Furosemide 60 mg 09/18/17 10:00 09/18/17 22:28 Lasix IVP 60 mg Q12 OLMAN Administration Dobutamine HCl/Dextrose 500 mg in 250 mls @ 7.327 mls/hr 09/07/17 11:42 09/19 06:55 Dobutamine/Dextrose 5% 500mg/250ml IV 2.5 mcg/kg/min .Q24H PRN 7.327 mls/hr TITRATE PER PROTOCOL Administration Protocol 2.5 MCG/KG/MIN Dexmedetomidine HCl 400 mcg in 100 mls @ 4.853 mls/hr 09/14/17 08:22 05:32 Precedex 4 Mcg/Ml (100 Ml) IV 1.2 mcg/kg/hr .[id number] PRN 29.121 mls/hr Agitation Administration Protocol 0.2 MCG/KG/HR Linezolid 600 mg in 300 mls @ 200 mls/hr 09/14/17 10:00 09/18/17 23:17 Zyvox 600mg/300ml D5w IVPB 09/21/17 10:01 200 mls/hr Q12 OLMAN Administration Protocol Propofol 1,000 mg in 100 mls @ 2.912 mls/hr 09/14/17 17:00 09/19/17 01:24 Diprivan IV 40 mcg/kg/min .Q24H PRN 23.297 mls/hr TITRATE PER MD ORDER Administration Protocol 5 MCG/KG/MIN Micafungin Sodium 100 mg/ 100 mls @ 100 mls/hr 09/16/17 10:00 09/18/17 09:52 Dextrose IV 09/22/17 10:01 100 mls/hr DAILY OLMAN Administration Protocol Doxycycline Hyclate 100 mg/ 100 mls @ 100 mls/hr 09/15/17 22:00 09/18/17 22: 50 Dextrose IVPB 09/19/17 22:01 100 mls/hr Q12 OLMAN Administration Protocol Meropenem 1 gm/ Dextrose 100 mls @ 100 mls/hr 09/17/17 07:53 09/18/17 22:27 IVPB 09/23/17 10:16 100 mls/hr Q12 OLMAN Administration Protocol Insulin Human Regular 0 units 09/17/17 12:00 09/19/17 06:58 Humulin R High SC Not Given Q4 OLMAN Protocol Metoprolol Tartrate 25 mg 09/18/17 18:00 09/18/17 17:28 Lopressor PO 25 mg BID OLMAN Administration Morphine Sulfate 4 mg 09/15/17 17:57 09/17/17 17:28 Morphine IVP 4 mg Q6H PRN Administration Agitation Nicotine 1 patch 09/15/17 11:00 09/18/17 09:53 Nicoderm Cq TD 1 patch DAILY OLMAN Administration Pantoprazole Sodium 40 mg 09/14/17 18:00 09/18/17 17:27 Protonix Inj IVP 40 mg BID OLMAN Administration Ticagrelor 90 mg 09/08/17 20:00 09/12/17 10:29 Brilinta PO 90 mg BID OLMAN Administration Vitamin A 1 ea 09/12/17 11:45 09/16/17 10:02 Vitamin A & D Oint Ud Foilpak TOP 1 ea Q8 PRN Administration Dry skin - Patient Studies Lab Studies: Microbiology Studies 09/14/17 10:30 Blood Culture - Preliminary Blood-Thru Central Line NO GROWTH AFTER 4 DAYS 09/14/17 10:00 Blood Culture - Preliminary Blood-Thru Central Line NO GROWTH AFTER 4 DAYS 09/13/17 07:00 Blood Culture - Final Blood-Venous NO GROWTH AFTER 5 DAYS Gram Stain - Final TEST NOT PERFORMED 09/13/17 06:45 Blood Culture - Final Blood-Venous NO GROWTH AFTER 5 DAYS Gram Stain - Final TEST NOT PERFORMED Lab Studies 09/19/17 09/19/17 09/19/17 Range/Units 07:32 05:30 04:14 WBC 12.8 H (4.5-11.0) 10^3/ul RBC 2.96 L (3.5-6.1) 10^6/uL Hgb 8.9 L (14.0-18.0) g/dL Hct 28.6 L (42.0-52.0) % MCV 96.6 (80.0-105.0) fl MCH 30.1 (25.0-35.0) pg MCHC 31.1 (31.0-37.0) g/dl RDW 17.7 H (11.5-14.5) % Plt Count 233 (120.0-450.0) 10^3/uL MPV 11.2 H (7.0-11.0) fl Gran % 83.5 H (50.0-68.0) % Lymph % (Auto) 11.2 L (22.0-35.0) % Hodgeman % (Auto) 4.8 (1.0-6.0) % Eos % (Auto) 0.3 L (1.5-5.0) % Baso % (Auto) 0.2 (0.0-3.0) % Gran # 10.69 H (1.4-6.5) Lymph # (Auto) 1.4 (1.2-3.4) Hodgeman # (Auto) 0.6 (0.1-0.6) Eos # (Auto) 0.0 (0.0-0.7) Baso # (Auto) 0.02 (0.0-2.0) K/mm3 POC Glucose (mg/dL) 144 H 161 H (65-110) mg/dL Procalcitonin (0.19-0.49) NG/ML 09/19/17 09/18/17 09/18/17 Range/Units 00:00 19:47 15:46 WBC (4.5-11.0) 10^3/ul RBC (3.5-6.1) 10^6/uL Hgb (14.0-18.0) g/dL Hct (42.0-52.0) % MCV (80.0-105.0) fl MCH (25.0-35.0) pg MCHC (31.0-37.0) g/dl RDW (11.5-14.5) % Plt Count (120.0-450.0) 10^3/uL MPV (7.0-11.0) fl Gran % (50.0-68.0) % Lymph % (Auto) (22.0-35.0) % Hodgeman % (Auto) (1.0-6.0) % Eos % (Auto) (1.5-5.0) % Baso % (Auto) (0.0-3.0) % Gran # (1.4-6.5) Lymph # (Auto) (1.2-3.4) Hodgeman # (Auto) (0.1-0.6) Eos # (Auto) (0.0-0.7) Baso # (Auto) (0.0-2.0) K/mm3 POC Glucose (mg/dL) 154 H 134 H 172 H (65-110) mg/dL Procalcitonin (0.19-0.49) NG/ML 09/18/17 09/18/17 09/18/17 Range/Units 13:30 12:24 08:31 WBC (4.5-11.0) 10^3/ul RBC (3.5-6.1) 10^6/uL Hgb (14.0-18.0) g/dL Hct (42.0-52.0) % MCV (80.0-105.0) fl MCH (25.0-35.0) pg MCHC (31.0-37.0) g/dl RDW (11.5-14.5) % Plt Count (120.0-450.0) 10^3/uL MPV (7.0-11.0) fl Gran % (50.0-68.0) % Lymph % (Auto) (22.0-35.0) % Hodgeman % (Auto) (1.0-6.0) % Eos % (Auto) (1.5-5.0) % Baso % (Auto) (0.0-3.0) % Gran # (1.4-6.5) Lymph # (Auto) (1.2-3.4) Hodgeman # (Auto) (0.1-0.6) Eos # (Auto) (0.0-0.7) Baso # (Auto) (0.0-2.0) K/mm3 POC Glucose (mg/dL) 215 H 181 H (65-110) mg/dL Procalcitonin 0.69 H (0.19-0.49) NG/ML Laboratory Results - last 24 hr 09/18/17 09/18/17 09/18/17 08:31 12:24 13:30 WBC RBC Hgb Hct MCV MCH MCHC RDW Plt Count MPV Gran % Lymph % (Auto) Hodgeman % (Auto) Eos % (Auto) Baso % (Auto) Gran # Lymph # (Auto) Hodgeman # (Auto) Eos # (Auto) Baso # (Auto) POC Glucose (mg/dL) 181 H 215 H Procalcitonin 0.69 H 09/18/17 09/18/17 09/19/17 15:46 19:47 00:00 WBC RBC Hgb Hct MCV MCH MCHC RDW Plt Count MPV Gran % Lymph % (Auto) Hodgeman % (Auto) Eos % (Auto) Baso % (Auto) Gran # Lymph # (Auto) Hodgeman # (Auto) Eos # (Auto) Baso # (Auto) POC Glucose (mg/dL) 172 H 134 H 154 H Procalcitonin 09/19/17 09/19/17 09/19/17 04:14 05:30 07:32 WBC 12.8 H RBC 2.96 L Hgb 8.9 L Hct 28.6 L MCV 96.6 MCH 30.1 MCHC 31.1 RDW 17.7 H Plt Count 233 MPV 11.2 H Gran % 83.5 H Lymph % (Auto) 11.2 L Hodgeman % (Auto) 4.8 Eos % (Auto) 0.3 L Baso % (Auto) 0.2 Gran # 10.69 H Lymph # (Auto) 1.4 Hodgeman # (Auto) 0.6 Eos # (Auto) 0.0 Baso # (Auto) 0.02 POC Glucose (mg/dL) 161 H 144 H Procalcitonin Fingerstick Blood Sugar Results: 166 Critical Care Progress Note - Ventilator Checklist Head of Bed 30 Degrees: Yes Daily Sedation Vacation: Yes Daily Assessment of Readiness to Wean: Yes Daily Spontaneous Breathing Trial: Yes PUD Prophalyxis: Yes DVT Prophylaxis: Yes Oral Care with Chlorhexidine Gluconate {CHG}: Yes - Vent Settings MODE:: PRVC TIDAL VOLUME:: 400 RESP RATE:: 28 FIO2:: 50 PEEP:: 10 - Extremities/Vascular Does the Patient have a Central Venous Catheter?: Yes Does the Patient need a Central Venous Catheter?: Yes Does the Patient have a Escamilla Catheter?: Yes Does the Patient need a Escamilla Catheter?: Yes Catheter Insertion Criteria: Need for accurate measurement of output in critically ill patient - Restraints Justification for Restraints: High risk for self extubation - Prophylaxis GI Prophylaxis GI: PPI - Prophylaxis DVT Prophylaxis DVT: Lovenox Assessment/Plan - Assessment and Plan (Free Text) Assessment: This is 67 yr old male with PMH with CAD s/p 15 stents, COPD, rheumatoid arthritis found to be in hypoxic respiratory distress, ARDS, NSTEMI, community acquired pneumonia and septic shock secondary to urosepsis with positive blood cultures. Patient is noted to have pulmonary edema as well as EMMA (improved). Plan: Neuro: Intubated, minimally sedated with Propofol Maintain normothermia CV: NSTEMI w/ Hx of CAD and 15 stents a.fib (rate controlled) CXR showed pulmonary edema is improving Continue [id number] Continue Dobutamine, ASA, Lipitor Cardio following Maintain MAP >65 Monitor I&O Pulm: Hypoxic Resp failure, Community acquired pneumonia as well as pulm vascular congestion Intubated on PRVC- will wean as tolerated Continue Lasix Titrate to maintain spO2>92% Protective Vent strategy HOB elevated, aspiration precaution Continue Duoneb, Nicotine patch GI: Tube feeds on hold for fluid overload PPI for gi prophylaxis Heme: Anemia- Hgb stable- no overt signs of bleeding Continue ASA, and Lovenox Will continue to monitor CBC Nephro: Hypernatremia-resolved Hypokalemia/hypomagnesemia - will replete and continue to monitor. Nephro following Maintain euvolemia and monitor I&O ID: Afebrile, leukocytosis trending down Urosepsis, Community Acquired pneumonia (improving) Blood culture and urine culture + for G- lauren. Repeat blood and urine Cultures all now negative ID following Continue Merrem, Zyvox, Doxy and Micofungin Endo: Hx of DM Continue with insulin sliding scale Maintain euglycemia (140-180) GI ppx: Protonix DVT ppx: Lovenox Dispo:Possible trach today for ltac. Patient seen, examined and case discussed with the attending. - Date & Time Date: 09/19/17 Time: 10:50 <Mack Hart - Last Filed: 09/19/17 13:43> CCU Objective - Vital Signs / Intake & Output Vital Signs (Last 4 hours): Vital Signs Temp Pulse Resp BP Pulse Ox 09/19/17 11:10 99.9 F H 97 H 100 09/19/17 11:00 100.0 F H 97 H 100 09/19/17 10:50 99.9 F H 99 H 100 09/19/17 10:46 99.9 F H 90 151/71 H 100 09/19/17 10:40 100.0 F H 102 H 100 09/19/17 10:30 100.0 F H 101 H 100 09/19/17 10:20 100.0 F H 101 H 100 09/19/17 10:11 100.0 F H 98 H 25 H 100 09/19/17 10:10 100.0 F H 102 H 100 09/19/17 10:00 100.2 F H 96 H 100 09/19/17 09:50 100.2 F H 96 H 100 09/19/17 09:46 100.2 F H 94 H 157/72 H 100 Intake and Output (Last 8hrs): Intake & Output 09/18/17 09/19/17 09/19/17 22:59 06:59 14:59 Intake Total 2450 250 1350 Output Total 1950 1750 Balance 500 250 -400 Intake: IV 850 250 550 Left Antecubital 550 Left Upper arm 850 Oral 1600 Other 800 Output: Urine 1949 1750 Urethral (Escam[place]) 1949 1750 Other: # Bowel Movements 1 - Medications Active Medications: Active Medications Generic Name Dose Route Start Last Admin Trade Name Freq PRN Reason Stop Dose Admin Albuterol/Ipratropium 3 ml 09/06/17 17:41 09/07/17 04:25 Duoneb 3 Mg/0.5 Mg (3 Ml) Ud IH 3 ml Q2H PRN Administration Shortness of Breath Albuterol/Ipratropium 3 ml 09/07/17 02:00 09/19/17 13:14 Duoneb 3 Mg/0.5 Mg (3 Ml) Ud IH 3 ml [id number] OLMAN Administration Artificial Tears 0 gm 09/17/17 09:48 Artificial Tears Opht Oint OU Q12 PRN Dry eyes Aspirin 81 mg 09/08/17 10:45 09/19/17 09:18 Aspirin Chewable PO 81 mg DAILY OLMAN Administration Bacitracin 0 gm 09/16/17 10:30 09/18/17 17:27 Bacitracin TOP 1 applic BID OLMAN Administration Calcium Acetate 1,334 mg 09/14/17 12:00 09/19/17 12:24 Phoslo PO 1,334 mg WM OLMAN Administration Enoxaparin Sodium 100 mg 09/15/17 10:00 09/18/17 09:57 Lovenox SC 100 mg Q24H OLMAN Administration Protocol Furosemide 60 mg 09/18/17 10:00 09/19/17 09:19 Lasix IVP 60 mg Q12 OLMAN Administration Dobutamine HCl/Dextrose 500 mg in 250 mls @ 7.327 mls/hr 09/07/17 11:42 09/19 06:55 Dobutamine/Dextrose 5% 500mg/250ml IV 2.5 mcg/kg/min .Q24H PRN 7.327 mls/hr TITRATE PER PROTOCOL Administration Protocol 2.5 MCG/KG/MIN Dexmedetomidine HCl 400 mcg in 100 mls @ 4.853 mls/hr 09/14/17 08:22 05:32 Precedex 4 Mcg/Ml (100 Ml) IV 1.2 mcg/kg/hr .[id number] PRN 29.121 mls/hr Agitation Administration Protocol 0.2 MCG/KG/HR Linezolid 600 mg in 300 mls @ 200 mls/hr 09/14/17 10:00 09/19/17 09:20 Zyvox 600mg/300ml D5w IVPB 09/21/17 10:01 200 mls/hr Q12 OLMAN Administration Protocol Propofol 1,000 mg in 100 mls @ 2.912 mls/hr 09/14/17 17:00 09/19/17 01:24 Diprivan IV 40 mcg/kg/min .Q24H PRN 23.297 mls/hr TITRATE PER MD ORDER Administration Protocol 5 MCG/KG/MIN Micafungin Sodium 100 mg/ 100 mls @ 100 mls/hr 09/16/17 10:00 09/19/17 10:20 Dextrose IV 09/22/17 10:01 100 mls/hr DAILY OLMAN Administration Protocol Doxycycline Hyclate 100 mg/ 100 mls @ 100 mls/hr 09/15/17 22:00 09/19/17 10: 19 Dextrose IVPB 09/19/17 22:01 100 mls/hr Q12 OLMAN Administration Protocol Meropenem 1 gm/ Dextrose 100 mls @ 100 mls/hr 09/17/17 07:53 09/19/17 10:18 IVPB 09/23/17 10:16 100 mls/hr Q12 OLMAN Administration Protocol Potassium Chloride 10 meq in 100 mls @ 50 mls/hr 09/19/17 09:45 09/19/17 12: 56 Potassium Chloride 10 Meq/100 Ml IVPB 09/19/17 14:44 50 mls/hr Q3H OLMAN Administration Insulin Human Regular 0 units 09/17/17 12:00 09/19/17 08:26 Humulin R High SC Not Given Q4 OLMAN Protocol Metoprolol Tartrate 25 mg 09/18/17 18:00 09/19/17 09:18 Lopressor PO 25 mg BID OLMAN Administration Morphine Sulfate 4 mg 09/15/17 17:57 09/17/17 17:28 Morphine IVP 4 mg Q6H PRN Administration Agitation Nicotine 1 patch 09/15/17 11:00 09/19/17 09:30 Nicoderm Cq TD 1 patch DAILY OLMAN Administration Pantoprazole Sodium 40 mg 09/14/17 18:00 09/19/17 09:18 Protonix Inj IVP 40 mg BID OLMAN Administration Ticagrelor 90 mg 09/08/17 20:00 09/12/17 10:29 Brilinta PO 90 mg BID OLMAN Administration Vitamin A 1 ea 09/12/17 11:45 09/16/17 10:02 Vitamin A & D Oint Ud Foilpak TOP 1 ea Q8 PRN Administration Dry skin - Patient Studies Lab Studies: Microbiology Studies 09/14/17 10:30 Blood Culture - Final Blood-Thru Central Line NO GROWTH AFTER 5 DAYS Gram Stain - Final TEST NOT PERFORMED 09/14/17 10:00 Blood Culture - Final Blood-Thru Central Line NO GROWTH AFTER 5 DAYS Gram Stain - Final TEST NOT PERFORMED Lab Studies 09/19/17 09/19/17 09/19/17 Range/Units 11:44 07:32 05:30 WBC (4.5-11.0) 10^3/ul RBC (3.5-6.1) 10^6/uL Hgb (14.0-18.0) g/dL Hct (42.0-52.0) % MCV (80.0-105.0) fl MCH (25.0-35.0) pg MCHC (31.0-37.0) g/dl RDW (11.5-14.5) % Plt Count (120.0-450.0) 10^3/uL MPV (7.0-11.0) fl Gran % (50.0-68.0) % Lymph % (Auto) (22.0-35.0) % Hodgeman % (Auto) (1.0-6.0) % Eos % (Auto) (1.5-5.0) % Baso % (Auto) (0.0-3.0) % Gran # (1.4-6.5) Lymph # (Auto) (1.2-3.4) Hodgeman # (Auto) (0.1-0.6) Eos # (Auto) (0.0-0.7) Baso # (Auto) (0.0-2.0) K/mm3 Sodium 142 (132-148) mmol/L Potassium 3.3 L (3.6-5.0) mmol/L Chloride 101 (98-107) mmol/L Carbon Dioxide 28 (21-33) mmol/L Anion Gap 17 (10-20) BUN 65 H (7-21) mg/dL Creatinine 1.3 (0.8-1.5) mg/dl Est GFR ( Amer) > 60 Est GFR (Non-Af Amer) 55 POC Glucose (mg/dL) 196 H 144 H (65-110) mg/dL Random Glucose 135 H (70-110) mg/dL Calcium 8.0 L (8.4-10.5) mg/dL Phosphorus 4.4 (2.5-4.5) mg/dL Magnesium 1.6 L (1.7-2.2) mg/dL Total Bilirubin 1.2 (0.2-1.3) mg/dL AST 102 H D (17-59) U/L ALT 111 H (7-56) U/L Alkaline Phosphatase 62 (38-126) U/L Total Protein 5.7 L (5.8-8.3) g/dL Albumin 2.7 L (3.0-4.8) g/dL Globulin 3.0 gm/dL Albumin/Globulin Ratio 0.9 L (1.1-1.8) Procalcitonin (0.19-0.49) NG/ML 09/19/17 09/19/17 09/19/17 Range/Units 05:30 04:14 00:00 WBC 12.8 H (4.5-11.0) 10^3/ul RBC 2.96 L (3.5-6.1) 10^6/uL Hgb 8.9 L (14.0-18.0) g/dL Hct 28.6 L (42.0-52.0) % MCV 96.6 (80.0-105.0) fl MCH 30.1 (25.0-35.0) pg MCHC 31.1 (31.0-37.0) g/dl RDW 17.7 H (11.5-14.5) % Plt Count 233 (120.0-450.0) 10^3/uL MPV 11.2 H (7.0-11.0) fl Gran % 83.5 H (50.0-68.0) % Lymph % (Auto) 11.2 L (22.0-35.0) % Hodgeman % (Auto) 4.8 (1.0-6.0) % Eos % (Auto) 0.3 L (1.5-5.0) % Baso % (Auto) 0.2 (0.0-3.0) % Gran # 10.69 H (1.4-6.5) Lymph # (Auto) 1.4 (1.2-3.4) Hodgeman # (Auto) 0.6 (0.1-0.6) Eos # (Auto) 0.0 (0.0-0.7) Baso # (Auto) 0.02 (0.0-2.0) K/mm3 Sodium (132-148) mmol/L Potassium (3.6-5.0) mmol/L Chloride (98-107) mmol/L Carbon Dioxide (21-33) mmol/L Anion Gap (10-20) BUN (7-21) mg/dL Creatinine (0.8-1.5) mg/dl Est GFR ( Amer) Est GFR (Non-Af Amer) POC Glucose (mg/dL) 161 H 154 H (65-110) mg/dL Random Glucose (70-110) mg/dL Calcium (8.4-10.5) mg/dL Phosphorus (2.5-4.5) mg/dL Magnesium (1.7-2.2) mg/dL Total Bilirubin (0.2-1.3) mg/dL AST (17-59) U/L ALT (7-56) U/L Alkaline Phosphatase (38-126) U/L Total Protein (5.8-8.3) g/dL Albumin (3.0-4.8) g/dL Globulin gm/dL Albumin/Globulin Ratio (1.1-1.8) Procalcitonin (0.19-0.49) NG/ML 09/18/17 09/18/17 09/18/17 Range/Units 19:47 15:46 13:30 WBC (4.5-11.0) 10^3/ul RBC (3.5-6.1) 10^6/uL Hgb (14.0-18.0) g/dL Hct (42.0-52.0) % MCV (80.0-105.0) fl MCH (25.0-35.0) pg MCHC (31.0-37.0) g/dl RDW (11.5-14.5) % Plt Count (120.0-450.0) 10^3/uL MPV (7.0-11.0) fl Gran % (50.0-68.0) % Lymph % (Auto) (22.0-35.0) % Hodgeman % (Auto) (1.0-6.0) % Eos % (Auto) (1.5-5.0) % Baso % (Auto) (0.0-3.0) % Gran # (1.4-6.5) Lymph # (Auto) (1.2-3.4) Hodgeman # (Auto) (0.1-0.6) Eos # (Auto) (0.0-0.7) Baso # (Auto) (0.0-2.0) K/mm3 Sodium (132-148) mmol/L Potassium (3.6-5.0) mmol/L Chloride (98-107) mmol/L Carbon Dioxide (21-33) mmol/L Anion Gap (10-20) BUN (7-21) mg/dL Creatinine (0.8-1.5) mg/dl Est GFR ( Amer) Est GFR (Non-Af Amer) POC Glucose (mg/dL) 134 H 172 H (65-110) mg/dL Random Glucose (70-110) mg/dL Calcium (8.4-10.5) mg/dL Phosphorus (2.5-4.5) mg/dL Magnesium (1.7-2.2) mg/dL Total Bilirubin (0.2-1.3) mg/dL AST (17-59) U/L ALT (7-56) U/L Alkaline Phosphatase (38-126) U/L Total Protein (5.8-8.3) g/dL Albumin (3.0-4.8) g/dL Globulin gm/dL Albumin/Globulin Ratio (1.1-1.8) Procalcitonin 0.69 H (0.19-0.49) NG/ML Laboratory Results - last 24 hr 09/18/17 09/18/17 09/18/17 13:30 15:46 19:47 WBC RBC Hgb Hct MCV MCH MCHC RDW Plt Count MPV Gran % Lymph % (Auto) Hodgeman % (Auto) Eos % (Auto) Baso % (Auto) Gran # Lymph # (Auto) Hodgeman # (Auto) Eos # (Auto) Baso # (Auto) Sodium Potassium Chloride Carbon Dioxide Anion Gap BUN Creatinine Est GFR ( Amer) Est GFR (Non-Af Amer) POC Glucose (mg/dL) 172 H 134 H Random Glucose Calcium Phosphorus Magnesium Total Bilirubin AST ALT Alkaline Phosphatase Total Protein Albumin Globulin Albumin/Globulin Ratio Procalcitonin 0.69 H 09/19/17 09/19/17 09/19/17 00:00 04:14 05:30 WBC 12.8 H RBC 2.96 L Hgb 8.9 L Hct 28.6 L MCV 96.6 MCH 30.1 MCHC 31.1 RDW 17.7 H Plt Count 233 MPV 11.2 H Gran % 83.5 H Lymph % (Auto) 11.2 L Hodgeman % (Auto) 4.8 Eos % (Auto) 0.3 L Baso % (Auto) 0.2 Gran # 10.69 H Lymph # (Auto) 1.4 Hodgeman # (Auto) 0.6 Eos # (Auto) 0.0 Baso # (Auto) 0.02 Sodium Potassium Chloride Carbon Dioxide Anion Gap BUN Creatinine Est GFR ( Amer) Est GFR (Non-Af Amer) POC Glucose (mg/dL) 154 H 161 H Random Glucose Calcium Phosphorus Magnesium Total Bilirubin AST ALT Alkaline Phosphatase Total Protein Albumin Globulin Albumin/Globulin Ratio Procalcitonin 09/19/17 09/19/17 09/19/17 05:30 07:32 11:44 WBC RBC Hgb Hct MCV MCH MCHC RDW Plt Count MPV Gran % Lymph % (Auto) Hodgeman % (Auto) Eos % (Auto) Baso % (Auto) Gran # Lymph # (Auto) Hodgeman # (Auto) Eos # (Auto) Baso # (Auto) Sodium 142 Potassium 3.3 L Chloride 101 Carbon Dioxide 28 Anion Gap 17 BUN 65 H Creatinine 1.3 Est GFR ( Amer) > 60 Est GFR (Non-Af Amer) 55 POC Glucose (mg/dL) 144 H 196 H Random Glucose 135 H Calcium 8.0 L Phosphorus 4.4 Magnesium 1.6 L Total Bilirubin 1.2 AST 102 H D ALT 111 H Alkaline Phosphatase 62 Total Protein 5.7 L Albumin 2.7 L Globulin 3.0 Albumin/Globulin Ratio 0.9 L Procalcitonin Assessment/Plan - Assessment and Plan (Free Text) Plan: Pt seen and examined with resident on rounds, agree with note with following additions/exceptions: Patient is 67yo male with PMHx of CAD with 15 stents, RA on MTX, HTN, presented with NSTEMI, and gram negative bacteremia, subsequently went into respiratory failure, ARDS, septic/cardiogenic shock, requiring vasopressors. Pt was intubated, sedated, paralyzed, placed on low tidal vol (6cc/PBW). Currently intubated, sedated, off Levophed/Vasopressin/Paralytics, on Dobutamine. ECHO with EF 25%. CXR with bilateral alevaolar infiltrates likely combination of PNA with Pulm edema, being diuresed. FiO2/PEEP requirements are downtrending, currently on FiO2 50%, PEEP 10, sat 96- 99%. Clinically improving, slowly. Awaiting trach today Respiratory failure ARDS, resolved PNA Cardiogenic Pulm edema RA on MTX NSTEMI Septic Shock, resolved Cardiogenic Shock, resolved Renal Failure Recommend: - cont with ventilatory support, low tidal vol ventilation, goal plateau<30, ABG monitoring, titrate Fio2 down, daily CPAP trials, awaiting trach today - CXR with worsening pulm edema, continue with Lasix 60mg IV q12h - taper IV steroids - Cont with broad spectrum antibiocs, as per ID - follow up ID - cont with Dobutamine - HOLD ASA, Brillinta, Statin, Lovenox for trach today - Follow up Cardiology - Free water flushes, monitor Na - FS control - GI ppx - DVT ppx - NPO - trach today with ENT
[2017-09-19 07:45] LABS: ALBUMIN 2.7 g/dL (3.0-4.8); BLOOD UREA NITROGEN 65 mg/dL (7-21); GFR AFRICAN-AMERICAN > 60; GFR NON-AFRICAN AMERICAN 55; MAGNESIUM 1.6 mg/dL (1.7-2.2)
[2017-09-19 07:46] LABS: ALB/GLOB RATIO 0.9 (1.1-1.8); ALT/SGPT 111 U/L (7-56); AST/SGOT 102 U/L (17-59)
--- NOTE | 2017-09-19 09:04 | RAD ---
HISTORY: intubated, pulm edema COMPARISON: 09/18/2017. FINDINGS: The endotracheal tube terminates 6.5 cm proximal to the geetha. The nasogastric tube terminates in the stomach. The left PICC line terminates in the SVC. LUNGS: The lungs are well inflated. There is interval improvement in pulmonary edema with improved aeration in both upper lobes. PLEURA: Stable pleural effusions, no pneumothorax apparent. CARDIOVASCULAR: Normal. OSSEOUS STRUCTURES: No significant abnormalities. VISUALIZED UPPER ABDOMEN: Normal. OTHER FINDINGS: None. IMPRESSION: Interval mild improvement in pulmonary edema with improved aeration in the upper lobes. Stable pleural effusions. Stable position of support line and tubes.
--- NOTE | 2017-09-19 09:05 | PN ---
DATE: 09/18/2017 REASON FOR CONSULTATION AND FOLLOWUP: [id number]-elevation myocardial infarction, respiratory failure, cardiomyopathy, rhabdomyolysis, vent dependent, Gram-negative sepsis, septic shock, multiorgan dysfunction . SUBJECTIVE: The patient weaned from the vent, on dobutamine and sedation. PHYSICAL EXAMINATION: GENERAL: Not in apparent distress. VITAL SIGNS: Temperature 100.7, heart rate 100, and blood pressure 141/73. HEENT: PERRLA, intact. NECK: Supple. No carotid bruit or thyromegaly. CHEST: Clear to auscultation. HEART: S1 and S2, regular. ABDOMEN: Soft. EXTREMITIES: Clubbing and cyanosis negative. LABORATORY DATA: Blood workup as follows: WBC 13, hemoglobin , hematocrit 27.3, platelet count 244. Chemistry shows sodium 147, potassium 3.6, chloride 104, carbon dioxide 30, anion gap of 16. BUN 68, creatinine 1.4. Total protein 5.7, albumin 2.8, albumin-globulin ratio 0.9. IMPRESSION: Gram-negative sepsis, septic shock, cardiogenic, status post ischemic cardiomyopathy, status post nwx-[id number]-elevation myocardial infarction, chronic atrial fibrillation, chronic renal insufficiency, respiratory failure. RECOMMENDATION: Continue aspirin. Brilinta is on hold because of bleeding. Heparin was changed to Lovenox. Continue vent management. We will put low-dose beta-adali at 25 b.i.d. Continue antibiotic. Try to wean vent as tolerated. Overall long-term prognosis is guarded. Continue Dobutrex. A prolong intubation is expected. Consider PEG and trach. We will supplement potassium. Continue IV Lasix. Renal function is improving. Overall, patient's condition is slowly improving. We will check mag and phos in the morning as well. Thank you, for providing us the opportunity in taking care of patient, Blanco Russell. We will follow with you. Gracia Arias MD
[2017-09-19] MEDS: Linezolid 600 mg in D5W 300 ml 600 MG/300 ML BAG IVPB SCH ×2 (09:20→21:57)
[2017-09-19] MEDS ORDERED: Magnesium Sulfate 2 GM in Sodium Chloride 0.9% 100 ML IVPB ONE (09:43)
--- NOTE | 2017-09-19 09:54 | PN ---
DATE: 09/17/2017 SUBJECTIVE: The patient is sedated on a ventilator. PHYSICAL EXAMINATION: GENERAL: The patient is in atrial fibrillation on a monitor. VITAL SIGNS: Blood pressure 139/77, heart rate 98, temperature 99.8. HEENT: Normocephalic. CHEST: Bilateral rhonchi. HEART: Sounds are regular. EXTREMITIES: 1+ pitting edema. LABORATORY DATA: SMA-7: Sodium 161, potassium 3.3, chloride 108, CO2 is 31, glucose 130, BUN 78, creatinine 1.3. Today's hemoglobin and hematocrit 8.7 and 28.4, white count 15.2, platelet count . ASSESSMENT: 1. Respiratory failure. 2. Ischemic cardiomyopathy. 3. Bilateral pneumonia. 4. Non ST elevation myocardial infarction. 5. Chronic atrial fibrillation. 6. Worsening prerenal azotemia. 7. Hypernatremia and hypokalemia, consider dehydration. RECOMMENDATIONS: Discontinue IV Lasix. Continue IV Zyvox, IV micafungin and IV meropenem. Continue IV doxycycline. Continue current aspirin. Brilinta is on hold. Optimize hydration. Steve Yañez MD
--- NOTE | 2017-09-19 10:17 | US ---
HISTORY: r/o acalculous dustin; elevated LFTs COMPARISON: None. TECHNIQUE: Grayscale imaging was performed. FINDINGS: LIVER: Measures 18.7 cm. There is diffuse increased echogenicity of the liver parenchyma. No mass. No intrahepatic bile duct dilatation. GALLBLADDER: Surgically absent. COMMON BILE DUCT: Measures 5.4 mm. No stones. No dilatation. PANCREAS: Unremarkable as visualized. No mass. No ductal dilatation. RIGHT KIDNEY: Measures 12.4cm. Normal echogenicity. No calculus, mass, or hydronephrosis. Are 2.9 x 2.6 x 2.6 cm and 1.4 x 0.9 x 1.4 cm simple cysts in the interpolar region. LEFT KIDNEY: Measures 15.3cm. Normal echogenicity. No calculus, mass, or hydronephrosis. SPLEEN: Normal in size and contour. No mass. AORTA: No aneurysmal dilatation. IVC: Unremarkable. OTHER FINDINGS: There are moderate bilateral pleural effusions. IMPRESSION: 1. Mild hepatomegaly. Diffuse increased echogenicity in the liver may reflect hepatic steatosis however parenchymal infectious/ inflammatory etiologies cannot be entirely excluded. Clinical and laboratory correlation is advised. 2. Bilateral moderate pleural effusions.
[2017-09-19] MEDS: Meropenem 1 GM in Dextrose 5% In Water 100 ML IVPB SCH ×2 (10:18→21:37)
[2017-09-19] MEDS: DOXYCYCLINE HYCLATE IVPB SCH ×2 (10:19→21:48)
[2017-09-19] MEDS: DEXTROSE 5% IVPB SCH ×2 (10:19→21:48)
[2017-09-19] MEDS: WATER IVPB SCH ×2 (10:19→21:48)
[2017-09-19] MEDS: Micafungin 100 MG in Dextrose 5% In Water 100 ML IV SCH (10:20)
--- NOTE | 2017-09-19 11:54 | CP.PCM.PN ---
<Ana Interiano - Last Filed: 09/19/17 11:44> Subjective - Date & Time of Evaluation Date of Evaluation: 09/19/17 Time of Evaluation: 11:44 - Subjective Subjective: Ana Interiano, PGY1, Medicine Progress Note for Dr Barroso: Patient seen and examined at bedside. Pt febrile overnight, 101.3F at 12 midnight. Pt remains intubated and sedated. Responds to pain. ROS unobtainable as pt is intubated/sedated Objective - Vital Signs/Intake and Output Vital Signs (last 24 hours): Temp Pulse Resp BP Pulse Ox 99.9 F H 97 H 25 H 151/71 H 100 09/19/17 11:10 09/19/17 11:10 09/19/17 10:11 09/19/17 10:46 09/19/17 11:10 Intake and Output: 09/19/17 09/19/17 06:59 18:59 Intake Total 250 1350 Output Total 1750 Balance 250 -400 - Medications Medications: Current Medications Albuterol/Ipratropium (Duoneb 3 Mg/0.5 Mg (3 Ml) Ud) 3 ml IH Q2H PRN PRN Reason: Shortness of Breath Last Admin: 09/07/17 04:25 Dose: 3 ml Albuterol/Ipratropium (Duoneb 3 Mg/0.5 Mg (3 Ml) Ud) 3 ml IH [id number] [facility] Last Admin: 09/19/17 07:49 Dose: 3 ml Artificial Tears (Artificial Tears Opht Oint) 0 gm OU Q12 PRN PRN Reason: Dry eyes Aspirin (Aspirin Chewable) 81 mg PO DAILY [facility] Last Admin: 09/19/17 09:18 Dose: 81 mg Bacitracin (Bacitracin) 0 gm TOP BID [facility] Last Admin: 09/18/17 17:27 Dose: 1 applic Calcium Acetate (Phoslo) 1,334 mg PO WM [facility] Last Admin: 09/19/17 09:18 Dose: 1,334 mg Enoxaparin Sodium (Lovenox) 100 mg SC Q24H [facility] PRN Reason: Protocol Last Admin: 09/18/17 09:57 Dose: 100 mg Furosemide (Lasix) 60 mg IVP Q12 [facility] Last Admin: 09/19/17 09:19 Dose: 60 mg Dobutamine HCl/Dextrose (Dobutamine/Dextrose 5% 500mg/250ml) 500 mg in 250 mls @ 7.327 mls/hr IV .Q24H PRN; Protocol; 2.5 MCG/KG/MIN PRN Reason: TITRATE PER PROTOCOL Last Admin: 09/19/17 06:55 Dose: 2.5 mcg/kg/min, 7.327 mls/hr Dexmedetomidine HCl (Precedex 4 Mcg/Ml (100 Ml)) 400 mcg in 100 mls @ 4.853 mls /hr IV .[id number] PRN; Protocol; 0.2 MCG/KG/HR PRN Reason: Agitation Last Admin: 09/17/17 05:32 Dose: 1.2 mcg/kg/hr, 29.121 mls/hr Linezolid (Zyvox 600mg/300ml D5w) 600 mg in 300 mls @ 200 mls/hr IVPB Q12 [facility] PRN Reason: Protocol Stop: 09/21/17 10:01 Last Admin: 09/19/17 09:20 Dose: 200 mls/hr Propofol (Diprivan) 1,000 mg in 100 mls @ 2.912 mls/hr IV .Q24H PRN; Protocol; 5 MCG/KG/MIN PRN Reason: TITRATE PER MD ORDER Last Admin: 09/19/17 01:24 Dose: 40 mcg/kg/min, 23.297 mls/hr Micafungin Sodium 100 mg/ (Dextrose) 100 mls @ 100 mls/hr IV DAILY [facility] PRN Reason: Protocol Stop: 09/22/17 10:01 Last Admin: 09/19/17 10:20 Dose: 100 mls/hr Doxycycline Hyclate 100 mg/ (Dextrose) 100 mls @ 100 mls/hr IVPB Q12 [facility] PRN Reason: Protocol Stop: 09/19/17 22:01 Last Admin: 09/19/17 10:19 Dose: 100 mls/hr Meropenem 1 gm/ Dextrose 100 mls @ 100 mls/hr IVPB Q12 [facility] PRN Reason: Protocol Stop: 09/23/17 10:16 Last Admin: 09/19/17 10:18 Dose: 100 mls/hr Potassium Chloride (Potassium Chloride 10 Meq/100 Ml) 10 meq in 100 mls @ 50 mls/hr IVPB Q3H [facility] Stop: 09/19/17 14:44 Last Admin: 09/19/17 10:24 Dose: 50 mls/hr Insulin Human Regular (Humulin R High) 0 units SC Q4 [facility] PRN Reason: Protocol Last Admin: 09/19/17 08:26 Dose: Not Given Metoprolol Tartrate (Lopressor) 25 mg PO BID [facility] Last Admin: 09/19/17 09:18 Dose: 25 mg Morphine Sulfate (Morphine) 4 mg IVP Q6H PRN PRN Reason: Agitation Last Admin: 09/17/17 17:28 Dose: 4 mg Nicotine (Nicoderm Cq) 1 patch TD DAILY [facility] Last Admin: 09/18/17 09:53 Dose: 1 patch Pantoprazole Sodium (Protonix Inj) 40 mg IVP BID [facility] Last Admin: 09/19/17 09:18 Dose: 40 mg Ticagrelor (Brilinta) 90 mg PO BID [facility] Last Admin: 09/12/17 10:29 Dose: 90 mg Vitamin A (Vitamin A & D Oint Ud Foilpak) 1 ea TOP Q8 PRN PRN Reason: Dry skin Last Admin: 09/16/17 10:02 Dose: 1 ea - Labs Labs: 09/19/17 05:30 09/19/17 05:30 PT 15.3 SECONDS (9.4-12.5) H 09/14/17 16:20 INR 1.33 (0.93-1.08) H 09/14/17 16:20 APTT 45.1 Seconds (25.1-36.5) H 09/15/17 08:15 - Additional Findings Additional findings: - Constitutional Appears: Chronically Ill, remains intubated - Head Exam Head Exam: NORMAL INSPECTION, NORMOCEPHALIC - Eye Exam Eye Exam: Normal appearance. absent: Conjunctival injection, Scleral icterus - ENT Exam Additional comments: ET tube in place. - Respiratory Exam Additional comments: Intubated on vent PRVC settings - Cardiovascular Exam Cardiovascular Exam: S1 S2 absent: Murmur - GI/Abdominal Exam GI & Abdominal Exam: Soft, Normal Bowel Sounds. absent: Firm, Guarding, Rigid, Tenderness - Extremities Exam Extremities Exam: Normal Inspection - Neurological Exam Additional comments: responds to pain. Sedated on propofol. - Psychiatric Exam Additional comments: intubated - Skin Skin Exam: Dry, Intact Assessment and Plan - Assessment and Plan (Free Text) Assessment: 67 yr old male with PMH with CAD s/p 15 stents, COPD, rheumatoid arthritis found to be in hypoxic respiratory distress, ARDS, NSTEMI, community acquired pneumonia and septic shock secondary to urosepsis with positive blood cultures: Respiratory failure - pneumonia vs acute decompensated CHF vs. history of COPD - intubated and sedated on precedex and propofol. - on dobutamine drip, midodrine - CT chest: New alveolar and interstitial infiltrates are seen in both lower lobes as well as the right upper lobe. This is superimposed upon chronic emphysematous changes - ABG showing respiratory alkalosis - negative for MRSA - flu negative - legionella negative - duonebs [facility] and PRN - increased lasix 60 IV q 12h - Merrem and Doxy D10; Zyvox D6, Mycamine Elevated LFTs: - LfTs rising - Abd US 09/18 showed mild hepatomegaly. Diffuse increased echogenicity in the liver may reflect hepatic steatosis - Consider hep panel - Cont to monitor NSTEMI - troponin elevated - Cardiology (Dr. Arias) following, recs appreciated * Unstable for Cardiac cath * Echo: dilated LV, EF 25-30%, hypokinesis of LV, trace AR, mild/mod MR, mild TR, dilated IVC - ASA - C/w lovenox [address] Arias - heparin drip held. - Hold brilinta due to anemia, per Cardio - holding Beta blockers 2/2 hypotension - holding crestor 2/2 rhabdo and elevated LFTs Hypernatremia: - resolved - Cont to monitor Hypokalemia: - repleted - Cont to monitor EMMA - Lasix 60 IV q12 - UO adequate, in negative fluid balance. - will monitor - nephro on board. appreciate recs UTI - Repeat blood and urine culture negative - UA showing elevated leuk esterase and nitrate - blood cultures showing E. coli - urine culture showing E. coli - abx as above E. coli bacteremia - blood and urine cultures positive for E. coli - Repeat blood and urine prelim negative - Sputum: + yeast - ID consulted, recs appreciated - abx as above Left inguinal hernia - CT abd/pel:There is a 5 cm diameter left inguinal hernia that contains a portion of the sigmoid colon. There is no obstruction - not causing problems at this time Hypotension - dobutamine gtt, and midodrine - Maintain MAP above 65 - holding beta adali for now Immunocompromised 2/2 RA - Bactrim for PCP ppx discontinued due to renal impairment PPX * GI protonix * DVT heparin drip Dispo: Possible tracheostomy, LTAC? Discussed with Dr. Poole. <Susan Poole - Last Filed: 09/19/17 12:10> Objective - Vital Signs/Intake and Output Vital Signs (last 24 hours): Temp Pulse Resp BP Pulse Ox 99.9 F H 97 H 25 H 151/71 H 100 09/19/17 11:10 09/19/17 11:10 09/19/17 10:11 09/19/17 10:46 09/19/17 11:10 Intake and Output: 09/19/17 09/19/17 06:59 18:59 Intake Total 250 1350 Output Total 1750 Balance 250 -400 - Medications Medications: Current Medications Albuterol/Ipratropium (Duoneb 3 Mg/0.5 Mg (3 Ml) Ud) 3 ml IH Q2H PRN PRN Reason: Shortness of Breath Last Admin: 09/07/17 04:25 Dose: 3 ml Albuterol/Ipratropium (Duoneb 3 Mg/0.5 Mg (3 Ml) Ud) 3 ml IH [id number] [facility] Last Admin: 09/19/17 07:49 Dose: 3 ml Artificial Tears (Artificial Tears Opht Oint) 0 gm OU Q12 PRN PRN Reason: Dry eyes Aspirin (Aspirin Chewable) 81 mg PO DAILY [facility] Last Admin: 09/19/17 09:18 Dose: 81 mg Bacitracin (Bacitracin) 0 gm TOP BID [facility] Last Admin: 09/18/17 17:27 Dose: 1 applic Calcium Acetate (Phoslo) 1,334 mg PO WM [facility] Last Admin: 09/19/17 09:18 Dose: 1,334 mg Enoxaparin Sodium (Lovenox) 100 mg SC Q24H [facility] PRN Reason: Protocol Last Admin: 09/18/17 09:57 Dose: 100 mg Furosemide (Lasix) 60 mg IVP Q12 [facility] Last Admin: 09/19/17 09:19 Dose: 60 mg Dobutamine HCl/Dextrose (Dobutamine/Dextrose 5% 500mg/250ml) 500 mg in 250 mls @ 7.327 mls/hr IV .Q24H PRN; Protocol; 2.5 MCG/KG/MIN PRN Reason: TITRATE PER PROTOCOL Last Admin: 09/19/17 06:55 Dose: 2.5 mcg/kg/min, 7.327 mls/hr Dexmedetomidine HCl (Precedex 4 Mcg/Ml (100 Ml)) 400 mcg in 100 mls @ 4.853 mls /hr IV .[id number] PRN; Protocol; 0.2 MCG/KG/HR PRN Reason: Agitation Last Admin: 09/17/17 05:32 Dose: 1.2 mcg/kg/hr, 29.121 mls/hr Linezolid (Zyvox 600mg/300ml D5w) 600 mg in 300 mls @ 200 mls/hr IVPB Q12 [facility] PRN Reason: Protocol Stop: 09/21/17 10:01 Last Admin: 09/19/17 09:20 Dose: 200 mls/hr Propofol (Diprivan) 1,000 mg in 100 mls @ 2.912 mls/hr IV .Q24H PRN; Protocol; 5 MCG/KG/MIN PRN Reason: TITRATE PER MD ORDER Last Admin: 09/19/17 01:24 Dose: 40 mcg/kg/min, 23.297 mls/hr Micafungin Sodium 100 mg/ (Dextrose) 100 mls @ 100 mls/hr IV DAILY [facility] PRN Reason: Protocol Stop: 09/22/17 10:01 Last Admin: 09/19/17 10:20 Dose: 100 mls/hr Doxycycline Hyclate 100 mg/ (Dextrose) 100 mls @ 100 mls/hr IVPB Q12 [facility] PRN Reason: Protocol Stop: 09/19/17 22:01 Last Admin: 09/19/17 10:19 Dose: 100 mls/hr Meropenem 1 gm/ Dextrose 100 mls @ 100 mls/hr IVPB Q12 [facility] PRN Reason: Protocol Stop: 09/23/17 10:16 Last Admin: 09/19/17 10:18 Dose: 100 mls/hr Potassium Chloride (Potassium Chloride 10 Meq/100 Ml) 10 meq in 100 mls @ 50 mls/hr IVPB Q3H [facility] Stop: 09/19/17 14:44 Last Admin: 09/19/17 10:24 Dose: 50 mls/hr Insulin Human Regular (Humulin R High) 0 units SC Q4 [facility] PRN Reason: Protocol Last Admin: 09/19/17 08:26 Dose: Not Given Metoprolol Tartrate (Lopressor) 25 mg PO BID [facility] Last Admin: 09/19/17 09:18 Dose: 25 mg Morphine Sulfate (Morphine) 4 mg IVP Q6H PRN PRN Reason: Agitation Last Admin: 09/17/17 17:28 Dose: 4 mg Nicotine (Nicoderm Cq) 1 patch TD DAILY [facility] Last Admin: 09/18/17 09:53 Dose: 1 patch Pantoprazole Sodium (Protonix Inj) 40 mg IVP BID [facility] Last Admin: 09/19/17 09:18 Dose: 40 mg Ticagrelor (Brilinta) 90 mg PO BID [facility] Last Admin: 09/12/17 10:29 Dose: 90 mg Vitamin A (Vitamin A & D Oint Ud Foilpak) 1 ea TOP Q8 PRN PRN Reason: Dry skin Last Admin: 09/16/17 10:02 Dose: 1 ea - Labs Labs: 09/19/17 05:30 09/19/17 05:30 PT 15.3 SECONDS (9.4-12.5) H 09/14/17 16:20 INR 1.33 (0.93-1.08) H 09/14/17 16:20 APTT 45.1 Seconds (25.1-36.5) H 09/15/17 08:15 Attending/Attestation - Attestation I have personally seen and examined this patient.: Yes I have fully participated in the care of the patient.: Yes I have reviewed all pertinent clinical information, including history, physical exam and plan: Yes Notes (Text): 09/19/17 12:04 67 year old male with past medical history of CAD s/p stents, systolic CHF, rheumatoid arthritis, and hypertension who initially presented with chest pain and chills. Hospital course was complicated with respiratory failure / ARDS. He was also found to have NSTEMI, afib, E coli bacteremia, pneumonia and UTI. He is currently on aspirin, metoprolol, lasix and lovenox. Statin is on hold due to elevated LFTs. Brilinta is on hold due to recent bleeding. Cardiology is following. Continue with vent management as per information tech. ?Possible trach this week. Continue with iv antibiotics as per ID for pneumonia, UTI and E coli bacteremia. He continues to have fever although repeat cultures were negative. Continue with monitor creatinine and LFTs closely. US abdomen was reviewed as above. Overall prognosis is poor. Susan Poole MD Hospitalist.
[2017-09-19 13:46] LABS: INR 1.69 (0.93-1.08); PROTHROMBIN TIME 19.7 SECONDS (9.4-12.5)
[2017-09-19] MEDS ORDERED: Lidocaine 1% w Epi 1:100,000 Inj ONE (14:03)
[2017-09-19] MEDS ORDERED: Rocuronium 10 mg/ml (5 ml) ONE ×2 (14:42→15:42)
[2017-09-19] MEDS ORDERED: Potassium Chloride 20 mEq/15 ml LIQ UD PO STA (15:08)
[2017-09-19] MEDS ORDERED: Sevoflurane - Inhalation Anesthetic Liq (250 ml) ONE (15:28)
--- NOTE | 2017-09-19 15:30 | CP.PCM.PN ---
Subjective - Date & Time of Evaluation Date of Evaluation: 09/19/17 Time of Evaluation: 15:28 - Subjective Subjective: Follow up Nephrology Consultation: Assessment: critical Acute Kidney Injury (N17.9) likely due to shock (sepsis + cardiogenic) combined respi and metabolic acidosis with lactic acidosis with acute hypoxic hypercapnic respi failure acute CHF with cardiogenic shock with acute MT UTI with sepsis and shock DM, HTN, CAD s/p stent, COPD with emphysema and active smoker hypokalemia and hypomagnesemia Plan no acute need for renal replacement therapy at this time continue with lasix and free water supplementation No ACEI/ARB due to EMMA Monitor Input/Output, daily weights and renal function with basic metabolic panel supplement electrolytes as needed Dose meds/antibiotics for reduced GFR. Avoid fleets enema/magnesium based laxatives. Avoid nephrotoxins/NSAIDs/ iodinated contrast (unless needed emergently) Glycemic control Further work up/management as per primary team overall prognosis guarded. Thanks for allowing me to participate in care of your patient. Will follow patient with you. Please call if any Qs. d/w team Dr Hema Driscoll Office: [phone] Chief Complaint; unable reason for consult: EMMA HPI: Pt is a 67 M with hx of diabetes Mellitus ( years), hypertension (years), CAD s/p stent, COPD with emphysema, active smoker initially presented with complaints of nausea/vomitting but had UTI sepsis and shock complicated by Acute MT and cardiogenic shock, pneumonia and pulmonary edema, respi failure renal consult for EMMA No recent iodinated contrast exposure. had obvious episodes of low BP. ROS: unable Physical Examination: General Appearance: ill appearing, orally intubated. Vitals reviewed and noted as below Head; Atraumatic, normocephalic ENT: orally intubated EYES: Sclera is anicteric. Neck; supple no lymphadenopathy, no thyromegaly or bruit Lungs: normal respiratory rate/effort. Breath sounds bilateral decreased at bases anteriorly. he is mechanically ventilated Heart: normal rate. s1s2 normal. No rub or gallop. Extremities: 1+ edema. No varicose veins Neurological: Patient is sedated Skin: Warm and dry. Normal turgor. No rash. Palpitation: Normal elasticity for age Abdomen: Abdomen is soft. Bowel sounds +. There is no abdominal tenderness, no guarding/rigidity no organomegaly Psych: unable MSK: no joint tenderness or swelling. Digits and nails normal, no deformity : kidney or bladder not palpable. has berumen Labs/imaging reviewed. Past medical history, past surgical history, family history, social history, allergy reviewed and noted as below Family hx: no hx of CKD. Rest non-contributory Objective - Vital Signs/Intake and Output Vital Signs (last 24 hours): Temp Pulse Resp BP Pulse Ox 99.9 F H 95 H 25 H 136/64 98 09/19/17 14:20 09/19/17 14:20 09/19/17 10:11 09/19/17 13:46 09/19/17 14:20 Intake and Output: 09/19/17 09/19/17 06:59 18:59 Intake Total 250 1350 Output Total 1750 Balance 250 -400 - Medications Medications: Current Medications Albuterol/Ipratropium (Duoneb 3 Mg/0.5 Mg (3 Ml) Ud) 3 ml IH Q2H PRN PRN Reason: Shortness of Breath Last Admin: 09/07/17 04:25 Dose: 3 ml Albuterol/Ipratropium (Duoneb 3 Mg/0.5 Mg (3 Ml) Ud) 3 ml IH [id number] [facility] Last Admin: 09/19/17 13:14 Dose: 3 ml Artificial Tears (Artificial Tears Opht Oint) 0 gm OU Q12 PRN PRN Reason: Dry eyes Aspirin (Aspirin Chewable) 81 mg PO DAILY [facility] Last Admin: 09/19/17 09:18 Dose: 81 mg Bacitracin (Bacitracin) 0 gm TOP BID [facility] Last Admin: 09/18/17 17:27 Dose: 1 applic Calcium Acetate (Phoslo) 1,334 mg PO WM [facility] Last Admin: 09/19/17 12:24 Dose: 1,334 mg Enoxaparin Sodium (Lovenox) 100 mg SC Q24H [facility] PRN Reason: Protocol Last Admin: 09/18/17 09:57 Dose: 100 mg Furosemide (Lasix) 60 mg IVP Q12 [facility] Last Admin: 09/19/17 09:19 Dose: 60 mg Dobutamine HCl/Dextrose (Dobutamine/Dextrose 5% 500mg/250ml) 500 mg in 250 mls @ 7.327 mls/hr IV .Q24H PRN; Protocol; 2.5 MCG/KG/MIN PRN Reason: TITRATE PER PROTOCOL Last Admin: 09/19/17 06:55 Dose: 2.5 mcg/kg/min, 7.327 mls/hr Dexmedetomidine HCl (Precedex 4 Mcg/Ml (100 Ml)) 400 mcg in 100 mls @ 4.853 mls /hr IV .[id number] PRN; Protocol; 0.2 MCG/KG/HR PRN Reason: Agitation Last Admin: 09/17/17 05:32 Dose: 1.2 mcg/kg/hr, 29.121 mls/hr Linezolid (Zyvox 600mg/300ml D5w) 600 mg in 300 mls @ 200 mls/hr IVPB Q12 [facility] PRN Reason: Protocol Stop: 09/21/17 10:01 Last Admin: 09/19/17 09:20 Dose: 200 mls/hr Propofol (Diprivan) 1,000 mg in 100 mls @ 2.912 mls/hr IV .Q24H PRN; Protocol; 5 MCG/KG/MIN PRN Reason: TITRATE PER MD ORDER Last Admin: 09/19/17 01:24 Dose: 40 mcg/kg/min, 23.297 mls/hr Micafungin Sodium 100 mg/ (Dextrose) 100 mls @ 100 mls/hr IV DAILY [facility] PRN Reason: Protocol Stop: 09/22/17 10:01 Last Admin: 09/19/17 10:20 Dose: 100 mls/hr Doxycycline Hyclate 100 mg/ (Dextrose) 100 mls @ 100 mls/hr IVPB Q12 [facility] PRN Reason: Protocol Stop: 09/19/17 22:01 Last Admin: 09/19/17 10:19 Dose: 100 mls/hr Meropenem 1 gm/ Dextrose 100 mls @ 100 mls/hr IVPB Q12 [facility] PRN Reason: Protocol Stop: 09/23/17 10:16 Last Admin: 09/19/17 10:18 Dose: 100 mls/hr Insulin Human Regular (Humulin R High) 0 units SC Q4 [facility] PRN Reason: Protocol Last Admin: 09/19/17 08:26 Dose: Not Given Metoprolol Tartrate (Lopressor) 25 mg PO BID [facility] Last Admin: 09/19/17 09:18 Dose: 25 mg Morphine Sulfate (Morphine) 4 mg IVP Q6H PRN PRN Reason: Agitation Last Admin: 09/17/17 17:28 Dose: 4 mg Nicotine (Nicoderm Cq) 1 patch TD DAILY [facility] Last Admin: 09/19/17 09:30 Dose: 1 patch Pantoprazole Sodium (Protonix Inj) 40 mg IVP BID [facility] Last Admin: 09/19/17 09:18 Dose: 40 mg Ticagrelor (Brilinta) 90 mg PO BID [facility] Last Admin: 09/12/17 10:29 Dose: 90 mg Vitamin A (Vitamin A & D Oint Ud Foilpak) 1 ea TOP Q8 PRN PRN Reason: Dry skin Last Admin: 09/16/17 10:02 Dose: 1 ea - Labs Labs: 09/19/17 05:30 09/19/17 05:30 PT 19.7 SECONDS (9.4-12.5) H 09/19/17 13:28 INR 1.69 (0.93-1.08) H 09/19/17 13:28 APTT 45.1 Seconds (25.1-36.5) H 09/15/17 08:15
--- NOTE | 2017-09-19 16:10 | CP.PCM.PN ---
Subjective - Date & Time of Evaluation Date of Evaluation: 09/19/17 Time of Evaluation: 08:40 - Subjective Subjective: Patient is still spiking fevers, still on the ventilator. Objective - Vital Signs/Intake and Output Vital Signs (last 24 hours): Temp Pulse Resp BP Pulse Ox 101.3 F H 98 H 36 H 142/86 100 09/19/17 00:00 09/18/17 17:28 09/18/17 07:48 09/18/17 22:28 09/18/17 07:48 Intake and Output: 09/18/17 09/19/17 18:59 06:59 Intake Total 2650 Output Total 1950 Balance 700 - Medications Medications: Current Medications Albuterol/Ipratropium (Duoneb 3 Mg/0.5 Mg (3 Ml) Ud) 3 ml IH Q2H PRN PRN Reason: Shortness of Breath Last Admin: 09/07/17 04:25 Dose: 3 ml Albuterol/Ipratropium (Duoneb 3 Mg/0.5 Mg (3 Ml) Ud) 3 ml IH [id number] [facility] Last Admin: 09/19/17 03:18 Dose: 3 ml Artificial Tears (Artificial Tears Opht Oint) 0 gm OU Q12 PRN PRN Reason: Dry eyes Aspirin (Aspirin Chewable) 81 mg PO DAILY [facility] Last Admin: 09/18/17 09:57 Dose: 81 mg Bacitracin (Bacitracin) 0 gm TOP BID [facility] Last Admin: 09/18/17 17:27 Dose: 1 applic Calcium Acetate (Phoslo) 1,334 mg PO WM [facility] Last Admin: 09/18/17 17:22 Dose: Not Given Enoxaparin Sodium (Lovenox) 100 mg SC Q24H [facility] PRN Reason: Protocol Last Admin: 09/18/17 09:57 Dose: 100 mg Furosemide (Lasix) 60 mg IVP Q12 [facility] Last Admin: 09/18/17 22:28 Dose: 60 mg Dobutamine HCl/Dextrose (Dobutamine/Dextrose 5% 500mg/250ml) 500 mg in 250 mls @ 7.327 mls/hr IV .Q24H PRN; Protocol; 2.5 MCG/KG/MIN PRN Reason: TITRATE PER PROTOCOL Last Titration: 09/18/17 00:30 Dose: 2.5 mcg/kg/min, 7.327 mls/hr Dexmedetomidine HCl (Precedex 4 Mcg/Ml (100 Ml)) 400 mcg in 100 mls @ 4.853 mls /hr IV .[id number] PRN; Protocol; 0.2 MCG/KG/HR PRN Reason: Agitation Last Admin: 09/17/17 05:32 Dose: 1.2 mcg/kg/hr, 29.121 mls/hr Linezolid (Zyvox 600mg/300ml D5w) 600 mg in 300 mls @ 200 mls/hr IVPB Q12 [facility]MAN PRN Reason: Protocol Stop: 09/21/17 10:01 Last Admin: 09/18/17 23:17 Dose: 200 mls/hr Propofol (Diprivan) 1,000 mg in 100 mls @ 2.912 mls/hr IV .Q24H PRN; Protocol; 5 MCG/KG/MIN PRN Reason: TITRATE PER MD ORDER Last Admin: 09/19/17 01:24 Dose: 40 mcg/kg/min, 23.297 mls/hr Micafungin Sodium 100 mg/ (Dextrose) 100 mls @ 100 mls/hr IV DAILY [facility] PRN Reason: Protocol Stop: 09/22/17 10:01 Last Admin: 09/18/17 09:52 Dose: 100 mls/hr Doxycycline Hyclate 100 mg/ (Dextrose) 100 mls @ 100 mls/hr IVPB Q12 [facility] PRN Reason: Protocol Stop: 09/19/17 22:01 Last Admin: 09/18/17 22:50 Dose: 100 mls/hr Meropenem 1 gm/ Dextrose 100 mls @ 100 mls/hr IVPB Q12 [facility] PRN Reason: Protocol Stop: 09/23/17 10:16 Last Admin: 09/18/17 22:27 Dose: 100 mls/hr Insulin Human Regular (Humulin R High) 0 units SC Q4 [facility] PRN Reason: Protocol Last Admin: 09/19/17 00:43 Dose: Not Given Metoprolol Tartrate (Lopressor) 25 mg PO BID [facility] Last Admin: 09/18/17 17:28 Dose: 25 mg Morphine Sulfate (Morphine) 4 mg IVP Q6H PRN PRN Reason: Agitation Last Admin: 09/17/17 17:28 Dose: 4 mg Nicotine (Nicoderm Cq) 1 patch TD DAILY [facility] Last Admin: 09/18/17 09:53 Dose: 1 patch Pantoprazole Sodium (Protonix Inj) 40 mg IVP BID [facility] Last Admin: 09/18/17 17:27 Dose: 40 mg Ticagrelor (Brilinta) 90 mg PO BID [facility] Last Admin: 09/12/17 10:29 Dose: 90 mg Vitamin A (Vitamin A & D Oint Ud Foilpak) 1 ea TOP Q8 PRN PRN Reason: Dry skin Last Admin: 09/16/17 10:02 Dose: 1 ea - Labs Labs: 09/18/17 05:45 09/18/17 05:45 PT 15.3 SECONDS (9.4-12.5) H 09/14/17 16:20 INR 1.33 (0.93-1.08) H 09/14/17 16:20 APTT 45.1 Seconds (25.1-36.5) H 09/15/17 08:15 - Constitutional Appears: Chronically Ill, Other (intubated and sedated) - ENT Exam Additional comments: ET tube in place - Respiratory Exam Respiratory Exam: Decreased Breath Sounds - Cardiovascular Exam Cardiovascular Exam: +S1, +S2 - GI/Abdominal Exam GI & Abdominal Exam: Soft. absent: Tenderness Assessment and Plan - Assessment and Plan (Free Text) Plan: Assessment severe sepsis S/P shock with VDRF and renal failure due to E. coli bacteremia, consider urine as the source, on top of possible myocardial infarction and possible pneumonia, now also with pulmonary edema, slowly decreasing - new onset fever R/O worsening pneumonia history of acute cholecystitis, S/P laparoscopic cholecystectomy HTN atrial fibrillation with history of cardioversion rheumatoid arthritis COPD dyslipidemia history of pancreatitis S/P left ACL repair CAD S/P PCI S/P left toe amputation Plan continue Merrem day 10 and Doxycycline (for pneumonia) and continue Zyvox (day 6 ) and added Mycamine day 6 as well since he is on chronic immunosuppression for his rheumatoid arthritis; MRSA nares is negative; urine Legionella Ag is negative; rapid flu test is negative; repeat blood cx from the central line are negative, will repeat Fungitell; Galactomannan test is negative will continue to monitor clinically overall prognosis is poor
[2017-09-19] MEDS: Bacitracin Ointment 30 GM TUBE TOP SCH (17:37)
--- NOTE | 2017-09-19 18:29 | RAD ---
HISTORY: Tracheostomy conversion COMPARISON: 02/16/2018. Time of the most recent examination: 05:37 FINDINGS: LUNGS: Stable multifocal and bilateral infiltrates. PLEURA: No significant pleural effusion identified, no pneumothorax apparent. CARDIOVASCULAR: No significant interval change compared to the prior examination(s).PICC line in satisfactory position OSSEOUS STRUCTURES: No significant abnormalities. VISUALIZED UPPER ABDOMEN: Normal. OTHER FINDINGS: Satisfactory position of tracheostomy device. IMPRESSION: Satisfactory position of recently placed tracheostomy device replacing endotracheal tube.
--- NOTE | 2017-09-19 19:24 | PN ---
DATE: 09/19/2017 REASON FOR CONSULTATION AND FOLLOWUP: Non-ST segment elevation myocardial infarction, respiratory failure, cardiomyopathy, gram-negative sepsis, rhabdomyolysis, vent-dependent. SUBJECTIVE: Not in distress, on sedation, on Dobutrex. OBJECTIVE: GENERAL: Not in distress. VITAL SIGNS: As follows: Temperature low-grade fever of 99.9, heart rate 95, blood pressure 120/80. HEENT: PERRLA, intact. NECK: Supple. No carotid bruit or thyromegaly. CHEST: Clear to auscultation. HEART: S1, S2 regular. ABDOMEN: Soft. EXTREMITIES: Clubbing and cyanosis negative. LABORATORY DATA: Blood workup as follows: WBC , hemoglobin 8.9, hematocrit 28.6, platelet count 233. Chemistry shows sodium 140, potassium 3.3, chloride 101, carbon dioxide 28, anion gap of 17, BUN 65, creatinine 1.3, total protein , albumin 2.7. IMPRESSION: Protein-calorie malnutrition, not present on admission; gram-negative sepsis; acute kidney injury, improved; respiratory failure, ventilator-dependent; rheumatoid arthritis; rule out Rogelio syndrome; chronic atrial fibrillation, status post percutaneous transluminal coronary angioplasty; non-ST segment elevation myocardial infarction; cardiomyopathy, ischemic. RECOMMENDATIONS: Continue Dobutrex, continue 1 mg/kg q.24 Lovenox for AFib, Brilinta on hold, continue aspirin, continue gentle diuretics. If prolonged intubation expected, consider trach. We will follow with you. Overall, patient's condition is critical. Long-term prognosis is guarded. Supplement potassium. Keep negative fluid balance. Gracia Arias MD
[2017-09-19] MEDS: Metoprolol 1 mg/ml Inj IVP PRN (20:29)
[2017-09-20] MEDS: Albuterol-Ipratrop 3 mg / 0.5 (3 ml) UD IH SCH ×4 (01:22→20:40)
[2017-09-20] MEDS: Insulin Reg-HIGH-Coverage SC SCH ×6 (01:47→21:11)
[2017-09-20 05:48] LABS: ARTERIAL BLOOD GAS HCO3 29.8 mmol/L (21-28); ARTERIAL BLOOD GAS O2 CAPACITY 12.3 mL/dl (16-24); ARTERIAL BLOOD GAS O2 CONTENT 12.2 ML/dl (15-23); ARTERIAL BLOOD GAS O2 SAT 98.9 % (95-98); ARTERIAL BLOOD GAS PCO2 40 mm/Hg (35-45); ARTERIAL BLOOD GAS PH 7.48 (7.35-7.45)
--- NOTE | 2017-09-20 06:50 | OP ---
PROCEDURE DATE: 09/19/2017 PREOPERATIVE DIAGNOSIS: Ventilatory dependant respiratory failure. POSTOPERATIVE DIAGNOSIS: Ventilatory dependant respiratory failure. PROCEDURE: Tracheostomy with David flap and partial isthmusectomy. SURGEON: Jean Paul Edwards D.O. [employer] PROFESSOR: Cristy Hall D.O. TYPE OF ANESTHESIA: General endotracheal. ANESTHESIA ADMINISTERED BY: FLUIDS: Crystalloid. ESTIMATED BLOOD LOSS: 10 mL COMPLICATIONS: None. SPECIMEN: None. CONDITION: Stable, back to the ICU. INDICATION FOR PROCEDURE: This is a 67-year-old patient, who was admitted to [facility] and was found to have an NSTEMI. Also found to have gram-negative bacteremia. He has required intensive care unit stay and his hospitalization has been complicated by pneumonia, ARDS and sepsis, which initially required vasopressor support. He has been intubated now for over 10 days and has been unable to be weaned from the ventilator. Therefore we bring him here today for tracheostomy. Risk and benefit of the procedure including but not limited to bleeding, infection, scarring, pain, loss of airway, potential damage to the airway and the lung, as well as potential were discussed with the patient's family at the bedside. They understood the risks and wished to proceed and informed consent was signed. DESCRIPTION OF PROCEDURE: Afterwards the patient was brought into the operating room and placed supine on the operating room table. General anesthesia was induced. The time-out was called confirming the patient and procedure. A shoulder roll was placed and the skin was marked overlying the cricoid and the sternal notch. The patient was then sterilely prepped and draped. 1% lidocaine with 1:100,000 epinephrine was injected along the incision line. A horizontal incision was made with a #15 blade through the skin and dermis. Subcutaneous fat was dissected down to the strap. The midline raphe was identified and they were divided in a vertical fashion using Bovie electrocautery and are to retract to see laterally. At this point, the thyroid and the trachea came into view. Further tissue was dissected from along the anterior trachea using Kittner's, until the tracheal rims were clearly seen. As the part of the thyroid was in the way of the trachea, it was partially resected on the inferior side using Bovie. At this point, a #11 blade was used to make a horizontal incision between a second and third tracheal ring and a Metzenbaum scissors was used to widen the incision laterally and also create a small inferior flap along the tracheal ring inferiorly. A 3-0 silk suture was used to put a stitch through this inferior tracheal flap, which was then secured to the anterior chest wall. A Trousseau dilator was used to dilate the opening. Afterwards, a previously tested #6 cuffed Shiley was passed with an obturator into the trachea. The obturator was removed and then a suction catheter was used to pass through the trach to confirm the placement. Afterwards the catheter was removed and inner cannula was replaced. The tracheostomy apparatus was hooked up to the ventilator and tidal CO2 was confirmed. The tracheostomy apparatus was then secured with four cornered 2-0 silk sutures and a trach tie. Care of the patient was transferred to the anesthesia team, who transferred him back to the ICU in stable condition. The patient tolerated the procedure well. No complications. Dr. Jean Paul Edwards was present and scrubbed for the entirety of the procedure. Jean Paul Edwards DO
[2017-09-20 07:37] LABS: EOS % 0.2 % (1.5-5.0); GRAN # 9.67 (1.4-6.5); LYMPH # 1.4 (1.2-3.4); LYMPH % 12.1 % (22.0-35.0); MEAN CELL VOLUME 97.3 fl (80.0-105.0); MEAN CORPUSCULAR HEMOGLOBIN 30.3 pg (25.0-35.0); MEAN CORPUSCULAR HGB CONC 31.1 g/dl (31.0-37.0); MEAN PLATELET VOLUME 10.7 fl (7.0-11.0); MONO # 0.8 (0.1-0.6); MONO % 6.7 % (1.0-6.0); RBC 2.97 10^6/uL (3.5-6.1); WHITE BLOOD COUNT 11.9 10^3/ul (4.5-11.0)
--- NOTE | 2017-09-20 07:51 | CP.CCUPN ---
<Vanna Rodríguez - Last Filed: 09/20/17 10:07> CCU Subjective - Physician Review Subjective (Free Text): 09/19/17 0700 Patient is still intubated. Responds to verbal and tactile stimulus. Following simple commands. As per nurse, patient had normal bowel movement last night. 09/20/17 09:39 No acute overnight events. patient remains stable. Had trach yesterday. minimally sedated, follows simple commands. febrile, however temp improving. Critical Care Time Spent (in minutes): 45 CCU Objective - Vital Signs / Intake & Output Intake and Output (Last 8hrs): Intake & Output 09/19/17 09/20/17 09/20/17 22:59 06:59 14:59 Intake Total 690 1120 Output Total 1475 Balance -785 1120 Intake: IV 690 1120 Left Hand 560 Left Upper arm 690 560 Output: Urine 1475 Urethral ([place]) 1475 Other: # Bowel Movements 1 - Physical Exam Head: Positive for: Atraumatic, Normocephalic Pupils: Positive for: PERRL Extroacular Muscles: Positive for: EOMI Conjunctiva: Positive for: Normal Mouth: Positive for: Moist Mucous Membranes Neck: Positive for: Normal Range of Motion Respiratory/Chest: Positive for: Clear to Auscultation, Good Air Exchange, Other (coarse breath sound.). Negative for: Respiratory Distress, Accessory Muscle Use Cardiovascular: Positive for: Regular Rate and Rhythm, Normal S1, S2. Negative for: Murmurs Abdomen: Positive for: Normal Bowel Sounds. Negative for: Tenderness, Distention, Peritoneal Signs Back: Positive for: Normal Inspection Upper Extremity: Positive for: Normal Inspection. Negative for: Cyanosis, Edema Lower Extremity: Positive for: Normal Inspection. Negative for: Edema Neurological: Positive for: Other (Minimally sedated) Skin: Positive for: Warm, Dry, Normal Color. Negative for: Rashes Psychiatric: Positive for: Normal Affect - Medications Active Medications: Active Medications Generic Name Dose Route Start Last Admin Trade Name Freq PRN Reason Stop Dose Admin Albuterol/Ipratropium 3 ml 09/06/17 17:41 09/07/17 04:25 Duoneb 3 Mg/0.5 Mg (3 Ml) Ud IH 3 ml Q2H PRN Administration Shortness of Breath Albuterol/Ipratropium 3 ml 09/07/17 02:00 09/20/17 06:59 Duoneb 3 Mg/0.5 Mg (3 Ml) Ud IH 3 ml [id number] OLMAN Administration Artificial Tears 0 gm 09/17/17 09:48 Artificial Tears Opht Oint OU Q12 PRN Dry eyes Aspirin 81 mg 09/08/17 10:45 09/19/17 09:18 Aspirin Chewable PO 81 mg DAILY OLMAN Administration Bacitracin 0 gm 09/16/17 10:30 09/19/17 17:37 Bacitracin TOP 1 applic BID OLMAN Administration Calcium Acetate 1,334 mg 09/14/17 12:00 09/19/17 19:04 Phoslo PO Not Given OLMAN Enoxaparin Sodium 100 mg 09/15/17 10:00 09/18/17 09:57 Lovenox SC 100 mg Q24H OLMAN Administration Protocol Furosemide 60 mg 09/18/17 10:00 09/19/17 21:29 Lasix IVP 60 mg Q12 OLMAN Administration Dobutamine HCl/Dextrose 500 mg in 250 mls @ 7.327 mls/hr 09/07/17 11:42 09/19 06:55 Dobutamine/Dextrose 5% 500mg/250ml IV 2.5 mcg/kg/min .Q24H PRN 7.327 mls/hr TITRATE PER PROTOCOL Administration Protocol 2.5 MCG/KG/MIN Dexmedetomidine HCl 400 mcg in 100 mls @ 4.853 mls/hr 09/14/17 08:22 05:32 Precedex 4 Mcg/Ml (100 Ml) IV 1.2 mcg/kg/hr .[id number] PRN 29.121 mls/hr Agitation Administration Protocol 0.2 MCG/KG/HR Linezolid 600 mg in 300 mls @ 200 mls/hr 09/14/17 10:00 09/19/17 21:57 Zyvox 600mg/300ml D5w IVPB 09/21/17 10:01 200 mls/hr Q12 OLMAN Administration Protocol Propofol 1,000 mg in 100 mls @ 2.912 mls/hr 09/14/17 17:00 09/19/17 22:21 Diprivan IV 40 mcg/kg/min .Q24H PRN 23.297 mls/hr TITRATE PER MD ORDER Administration Protocol 5 MCG/KG/MIN Micafungin Sodium 100 mg/ 100 mls @ 100 mls/hr 09/16/17 10:00 09/19/17 10:20 Dextrose IV 09/22/17 10:01 100 mls/hr DAILY OLMAN Administration Protocol Meropenem 1 gm/ Dextrose 100 mls @ 100 mls/hr 09/17/17 07:53 09/19/17 21:37 IVPB 09/23/17 10:16 100 mls/hr Q12 OLMAN Administration Protocol Insulin Human Regular 0 units 09/17/17 12:00 09/20/17 01:47 Humulin R High SC Not Given Q4 OLMAN Protocol Metoprolol Tartrate 25 mg 09/18/17 18:00 09/19/17 19:04 Lopressor PO Not Given BID OLMAN Metoprolol Tartrate 2.5 mg 09/19/17 19:45 09/19/17 20:29 Lopressor IVP 2.5 mg Q4H PRN Administration Heart rate Nicotine 1 patch 09/15/17 11:00 09/19/17 09:30 Nicoderm Cq TD 1 patch DAILY OLMAN Administration Pantoprazole Sodium 40 mg 09/14/17 18:00 09/19/17 19:27 Protonix Inj IVP 40 mg BID OLMAN Administration Ticagrelor 90 mg 09/08/17 20:00 09/12/17 10:29 Brilinta PO 90 mg BID OLMAN Administration Vitamin A 1 ea 09/12/17 11:45 09/16/17 10:02 Vitamin A & D Oint Ud Foilpak TOP 1 ea Q8 PRN Administration Dry skin - Patient Studies Lab Studies: Microbiology Studies 09/18/17 13:30 Blood Culture - Preliminary Blood NO GROWTH AFTER 24 HOURS 09/18/17 13:00 Blood Culture - Preliminary Blood NO GROWTH AFTER 24 HOURS 09/14/17 10:30 Blood Culture - Final Blood-Thru Central Line NO GROWTH AFTER 5 DAYS Gram Stain - Final TEST NOT PERFORMED 09/14/17 10:00 Blood Culture - Final Blood-Thru Central Line NO GROWTH AFTER 5 DAYS Gram Stain - Final TEST NOT PERFORMED Lab Studies 09/20/17 09/20/17 09/20/17 Range/Units 07:00 05:32 04:11 WBC 11.9 H (4.5-11.0) 10^3/ul RBC 2.97 L (3.5-6.1) 10^6/uL Hgb 9.0 L (14.0-18.0) g/dL Hct 28.9 L (42.0-52.0) % MCV 97.3 (80.0-105.0) fl MCH 30.3 (25.0-35.0) pg MCHC 31.1 (31.0-37.0) g/dl RDW 18.0 H (11.5-14.5) % Plt Count 205 (120.0-450.0) 10^3/uL MPV 10.7 (7.0-11.0) fl Gran % 81.0 H (50.0-68.0) % Lymph % (Auto) 12.1 L (22.0-35.0) % [place] % (Auto) 6.7 H (1.0-6.0) % Eos % (Auto) 0.2 L (1.5-5.0) % Baso % (Auto) 0.0 (0.0-3.0) % Gran # 9.67 H (1.4-6.5) Lymph # (Auto) 1.4 (1.2-3.4) [place] # (Auto) 0.8 H (0.1-0.6) Eos # (Auto) 0.0 (0.0-0.7) Baso # (Auto) 0.00 (0.0-2.0) K/mm3 PT (9.4-12.5) SECONDS INR (0.93-1.08) pCO2 40 (35-45) mm/Hg pO2 80.0 (80-100) mm/Hg HCO3 29.8 H (21-28) mmol/L ABG pH 7.48 H (7.35-7.45) ABG Total CO2 31.0 H (22-28) mmol.L ABG O2 Saturation 98.9 H (95-98) % ABG O2 Content 12.2 L (15-23) ML/dl ABG Base Excess 5.8 H (-2.0-3.0) mmol/L ABG Hemoglobin 9.0 L (11.7-17.4) g/dL ABG Carboxyhemoglobin 2.9 H (0.5-1.5) % POC ABG HHb (Measured) 1.1 (0-5) % ABG Methemoglobin 0.7 (0.0-3.0) % ABG O2 Capacity 12.3 L (16-24) mL/dl Hgb O2 Saturation 95.4 (95.0-98.0) % FiO2 50.0 % POC Glucose (mg/dL) 150 H (65-110) mg/dL 09/19/17 09/19/17 09/19/17 Range/Units 23:59 19:46 16:03 WBC (4.5-11.0) 10^3/ul RBC (3.5-6.1) 10^6/uL Hgb (14.0-18.0) g/dL Hct (42.0-52.0) % MCV (80.0-105.0) fl MCH (25.0-35.0) pg MCHC (31.0-37.0) g/dl RDW (11.5-14.5) % Plt Count (120.0-450.0) 10^3/uL MPV (7.0-11.0) fl Gran % (50.0-68.0) % Lymph % (Auto) (22.0-35.0) % [place] % (Auto) (1.0-6.0) % Eos % (Auto) (1.5-5.0) % Baso % (Auto) (0.0-3.0) % Gran # (1.4-6.5) Lymph # (Auto) (1.2-3.4) [place] # (Auto) (0.1-0.6) Eos # (Auto) (0.0-0.7) Baso # (Auto) (0.0-2.0) K/mm3 PT (9.4-12.5) SECONDS INR (0.93-1.08) pCO2 (35-45) mm/Hg pO2 (80-100) mm/Hg HCO3 (21-28) mmol/L ABG pH (7.35-7.45) ABG Total CO2 (22-28) mmol.L ABG O2 Saturation (95-98) % ABG O2 Content (15-23) ML/dl ABG Base Excess (-2.0-3.0) mmol/L ABG Hemoglobin (11.7-17.4) g/dL ABG Carboxyhemoglobin (0.5-1.5) % POC ABG HHb (Measured) (0-5) % ABG Methemoglobin (0.0-3.0) % ABG O2 Capacity (16-24) mL/dl Hgb O2 Saturation (95.0-98.0) % FiO2 % POC Glucose (mg/dL) 196 H 198 H 194 H (65-110) mg/dL 09/19/17 09/19/17 Range/Units 13:28 11:44 WBC (4.5-11.0) 10^3/ul RBC (3.5-6.1) 10^6/uL Hgb (14.0-18.0) g/dL Hct (42.0-52.0) % MCV (80.0-105.0) fl MCH (25.0-35.0) pg MCHC (31.0-37.0) g/dl RDW (11.5-14.5) % Plt Count (120.0-450.0) 10^3/uL MPV (7.0-11.0) fl Gran % (50.0-68.0) % Lymph % (Auto) (22.0-35.0) % [place] % (Auto) (1.0-6.0) % Eos % (Auto) (1.5-5.0) % Baso % (Auto) (0.0-3.0) % Gran # (1.4-6.5) Lymph # (Auto) (1.2-3.4) [place] # (Auto) (0.1-0.6) Eos # (Auto) (0.0-0.7) Baso # (Auto) (0.0-2.0) K/mm3 PT 19.7 H (9.4-12.5) SECONDS INR 1.69 H (0.93-1.08) pCO2 (35-45) mm/Hg pO2 (80-100) mm/Hg HCO3 (21-28) mmol/L ABG pH (7.35-7.45) ABG Total CO2 (22-28) mmol.L ABG O2 Saturation (95-98) % ABG O2 Content (15-23) ML/dl ABG Base Excess (-2.0-3.0) mmol/L ABG Hemoglobin (11.7-17.4) g/dL ABG Carboxyhemoglobin (0.5-1.5) % POC ABG HHb (Measured) (0-5) % ABG Methemoglobin (0.0-3.0) % ABG O2 Capacity (16-24) mL/dl Hgb O2 Saturation (95.0-98.0) % FiO2 % POC Glucose (mg/dL) 196 H (65-110) mg/dL Laboratory Results - last 24 hr 09/19/17 09/19/17 09/19/17 11:44 13:28 16:03 WBC RBC Hgb Hct MCV MCH MCHC RDW Plt Count MPV Gran % Lymph % (Auto) [place] % (Auto) Eos % (Auto) Baso % (Auto) Gran # Lymph # (Auto) [place] # (Auto) Eos # (Auto) Baso # (Auto) PT 19.7 H INR 1.69 H pCO2 pO2 HCO3 ABG pH ABG Total CO2 ABG O2 Saturation ABG O2 Content ABG Base Excess ABG Hemoglobin ABG Carboxyhemoglobin POC ABG HHb (Measured) ABG Methemoglobin ABG O2 Capacity Hgb O2 Saturation FiO2 POC Glucose (mg/dL) 196 H 194 H 09/19/17 09/19/17 09/20/17 19:46 23:59 04:11 WBC RBC Hgb Hct MCV MCH MCHC RDW Plt Count MPV Gran % Lymph % (Auto) [place] % (Auto) Eos % (Auto) Baso % (Auto) Gran # Lymph # (Auto) [place] # (Auto) Eos # (Auto) Baso # (Auto) PT INR pCO2 pO2 HCO3 ABG pH ABG Total CO2 ABG O2 Saturation ABG O2 Content ABG Base Excess ABG Hemoglobin ABG Carboxyhemoglobin POC ABG HHb (Measured) ABG Methemoglobin ABG O2 Capacity Hgb O2 Saturation FiO2 POC Glucose (mg/dL) 198 H 196 H 150 H 09/20/17 09/20/17 05:32 07:00 WBC 11.9 H RBC 2.97 L Hgb 9.0 L Hct 28.9 L MCV 97.3 MCH 30.3 MCHC 31.1 RDW 18.0 H Plt Count 205 MPV 10.7 Gran % 81.0 H Lymph % (Auto) 12.1 L [place] % (Auto) 6.7 H Eos % (Auto) 0.2 L Baso % (Auto) 0.0 Gran # 9.67 H Lymph # (Auto) 1.4 [place] # (Auto) 0.8 H Eos # (Auto) 0.0 Baso # (Auto) 0.00 PT INR pCO2 40 pO2 80.0 HCO3 29.8 H ABG pH 7.48 H ABG Total CO2 31.0 H ABG O2 Saturation 98.9 H ABG O2 Content 12.2 L ABG Base Excess 5.8 H ABG Hemoglobin 9.0 L ABG Carboxyhemoglobin 2.9 H POC ABG HHb (Measured) 1.1 ABG Methemoglobin 0.7 ABG O2 Capacity 12.3 L Hgb O2 Saturation 95.4 FiO2 50.0 POC Glucose (mg/dL) Fingerstick Blood Sugar Results: 138 Results Reviewed to Date: Yes Critical Care Progress Note - Ventilator Checklist Head of Bed 30 Degrees: Yes Daily Sedation Vacation: Yes Daily Assessment of Readiness to Wean: Yes Daily Spontaneous Breathing Trial: Yes PUD Prophalyxis: Yes DVT Prophylaxis: Yes Oral Care with Chlorhexidine Gluconate {CHG}: Yes - Vent Settings MODE:: PRVC - Extremities/Vascular Does the Patient have a Central Venous Catheter?: No Does the Patient need a Central Venous Catheter?: No Does the Patient have a [place] Catheter?: No Does the Patient need a [place] Catheter?: No Catheter Insertion Criteria: Need for accurate measurement of output in critically ill patient - Prophylaxis GI Prophylaxis GI: PPI - Prophylaxis DVT Prophylaxis DVT: Lovenox Assessment/Plan - Assessment and Plan (Free Text) Assessment: This is 67 yr old male with PMH with CAD s/p 15 stents, COPD, rheumatoid arthritis found to be in hypoxic respiratory distress, ARDS, NSTEMI, community acquired pneumonia and septic shock secondary to urosepsis with positive blood cultures. Patient is noted to have pulmonary edema as well as EMMA (improved). Plan: Neuro: Intubated, minimally sedated with Propofol Maintain normothermia CV: NSTEMI w/ Hx of CAD and 15 stents a.fib (rate controlled) CXR showed pulmonary edema is improving Continue [id number] Continue Dobutamine, ASA, Lipitor, resumed brilinta Cardio following Maintain MAP >65 Monitor I&O Pulm: Hypoxic Resp failure, Community acquired pneumonia as well as pulm vascular congestion s/p trach yesterday, repeat x-ray with vascular congestion- not much of an improvement Continue Lasix Titrate to maintain spO2>92% Protective Vent strategy, with high peep and TV of 6-8 ml/kg of predicted body weight HOB elevated, aspiration precaution Continue Duoneb, Nicotine patch GI: pending peg PPI for gi prophylaxis Heme: Anemia- Hgb stable- no overt signs of bleeding Continue to monitor Nephro: Hypernatremia-resolved Hypokalemia/hypomagnesemia - will replete and continue to monitor. Nephro following Maintain euvolemia and monitor I&O ID: Afebrile, leukocytosis trending down Urosepsis, Community Acquired pneumonia Blood culture and urine culture + for G- lauren. Repeat blood and urine Cultures all now negative ID following Continue Merrem, Zyvox, Doxy and Micofungin as per ID Endo: Hx of DM Continue with insulin sliding scale Maintain euglycemia (140-180) DVT ppx: Lovenox Dispo:Possible LTAC Patient seen, examined and case discussed with the attending. - Date & Time Date: 09/20/17 Time: 09:00 <Mack Hart - Last Filed: 09/20/17 10:43> CCU Objective - Vital Signs / Intake & Output Intake and Output (Last 8hrs): Intake & Output 09/19/17 09/20/17 09/20/17 22:59 06:59 14:59 Intake Total 690 1220 Output Total 1475 Balance -785 1220 Intake: IV 690 1220 Left Hand 560 Left Upper arm 690 560 Output: Urine 1475 Urethral ([place]) 1475 Other: # Bowel Movements 1 - Medications Active Medications: Active Medications Generic Name Dose Route Start Last Admin Trade Name Freq PRN Reason Stop Dose Admin Albuterol/Ipratropium 3 ml 09/06/17 17:41 09/07/17 04:25 Duoneb 3 Mg/0.5 Mg (3 Ml) Ud IH 3 ml Q2H PRN Administration Shortness of Breath Albuterol/Ipratropium 3 ml 09/07/17 02:00 09/20/17 06:59 Duoneb 3 Mg/0.5 Mg (3 Ml) Ud IH 3 ml [id number] OLMAN Administration Artificial Tears 0 gm 09/17/17 09:48 Artificial Tears Opht Oint OU Q12 PRN Dry eyes Aspirin 81 mg 09/08/17 10:45 09/20/17 10:09 Aspirin Chewable PO Not Given DAILY OLMAN Bacitracin 0 gm 09/16/17 10:30 09/19/17 17:37 Bacitracin TOP 1 applic BID OLMAN Administration Calcium Acetate 1,334 mg 09/14/17 12:00 09/20/17 09:09 Phoslo PO Not Given WM OLMAN Enoxaparin Sodium 100 mg 09/15/17 10:00 09/18/17 09:57 Lovenox SC 100 mg Q24H OLMAN Administration Protocol Furosemide 60 mg 09/18/17 10:00 09/19/17 21:29 Lasix IVP 60 mg Q12 OLMAN Administration Dobutamine HCl/Dextrose 500 mg in 250 mls @ 7.327 mls/hr 09/07/17 11:42 09/19 06:55 Dobutamine/Dextrose 5% 500mg/250ml IV 2.5 mcg/kg/min .Q24H PRN 7.327 mls/hr TITRATE PER PROTOCOL Administration Protocol 2.5 MCG/KG/MIN Dexmedetomidine HCl 400 mcg in 100 mls @ 4.853 mls/hr 09/14/17 08:22 05:32 Precedex 4 Mcg/Ml (100 Ml) IV 1.2 mcg/kg/hr .[id number] PRN 29.121 mls/hr Agitation Administration Protocol 0.2 MCG/KG/HR Linezolid 600 mg in 300 mls @ 200 mls/hr 09/14/17 10:00 09/19/17 21:57 Zyvox 600mg/300ml D5w IVPB 09/21/17 10:01 200 mls/hr Q12 OLMAN Administration Protocol Propofol 1,000 mg in 100 mls @ 2.912 mls/hr 09/14/17 17:00 09/20/17 08:58 Diprivan IV 40 mcg/kg/min .Q24H PRN 23.297 mls/hr TITRATE PER MD ORDER Administration Protocol 5 MCG/KG/MIN Micafungin Sodium 100 mg/ 100 mls @ 100 mls/hr 09/16/17 10:00 09/19/17 10:20 Dextrose IV 09/22/17 10:01 100 mls/hr DAILY OLMAN Administration Protocol Meropenem 1 gm/ Dextrose 100 mls @ 100 mls/hr 09/17/17 07:53 09/19/17 21:37 IVPB 09/23/17 10:16 100 mls/hr Q12 OLMAN Administration Protocol Potassium Chloride 10 meq in 100 mls @ 50 mls/hr 09/20/17 09:15 Potassium Chloride 10 Meq/100 Ml IVPB 09/20/17 11:14 Q1H OLMAN Insulin Human Regular 0 units 09/17/17 12:00 09/20/17 09:05 Humulin R High SC 2 units Q4 OLMAN Administration Protocol Metoprolol Tartrate 25 mg 09/18/17 18:00 09/20/17 10:09 Lopressor PO Not Given BID OLMAN Metoprolol Tartrate 2.5 mg 09/19/17 19:45 09/19/17 20:29 Lopressor IVP 2.5 mg Q4H PRN Administration Heart rate Nicotine 1 patch 09/15/17 11:00 09/19/17 09:30 Nicoderm Cq TD 1 patch DAILY OLMAN Administration Pantoprazole Sodium 40 mg 09/14/17 18:00 09/19/17 19:27 Protonix Inj IVP 40 mg BID OLMAN Administration Ticagrelor 90 mg 09/08/17 20:00 09/20/17 10:09 Brilinta PO Not Given BID [facility] Vitamin A 1 ea 09/12/17 11:45 09/16/17 10:02 Vitamin A & D Oint Ud Foilpak TOP 1 ea Q8 PRN Administration Dry skin - Patient Studies Lab Studies: Microbiology Studies 09/18/17 13:30 Blood Culture - Preliminary Blood NO GROWTH AFTER 24 HOURS 09/18/17 13:00 Blood Culture - Preliminary Blood NO GROWTH AFTER 24 HOURS 09/14/17 10:30 Blood Culture - Final Blood-Thru Central Line NO GROWTH AFTER 5 DAYS Gram Stain - Final TEST NOT PERFORMED 09/14/17 10:00 Blood Culture - Final Blood-Thru Central Line NO GROWTH AFTER 5 DAYS Gram Stain - Final TEST NOT PERFORMED Lab Studies 02/13/18 02/13/18 02/13/18 Range/Units 07:49 07:00 07:00 WBC 11.9 H (4.5-11.0) 10^3/ul RBC 2.97 L (3.5-6.1) 10^6/uL Hgb 9.0 L (14.0-18.0) g/dL Hct 28.9 L (42.0-52.0) % MCV 97.3 (80.0-105.0) fl MCH 30.3 (25.0-35.0) pg MCHC 31.1 (31.0-37.0) g/dl RDW 18.0 H (11.5-14.5) % Plt Count 205 (120.0-450.0) 10^3/uL MPV 10.7 (7.0-11.0) fl Gran % 81.0 H (50.0-68.0) % Lymph % (Auto) 12.1 L (22.0-35.0) % [place] % (Auto) 6.7 H (1.0-6.0) % Eos % (Auto) 0.2 L (1.5-5.0) % Baso % (Auto) 0.0 (0.0-3.0) % Gran # 9.67 H (1.4-6.5) Lymph # (Auto) 1.4 (1.2-3.4) [place] # (Auto) 0.8 H (0.1-0.6) Eos # (Auto) 0.0 (0.0-0.7) Baso # (Auto) 0.00 (0.0-2.0) K/mm3 PT (9.4-12.5) SECONDS INR (0.93-1.08) pCO2 (35-45) mm/Hg pO2 (80-100) mm/Hg HCO3 (21-28) mmol/L ABG pH (7.35-7.45) ABG Total CO2 (22-28) mmol.L ABG O2 Saturation (95-98) % ABG O2 Content (15-23) ML/dl ABG Base Excess (-2.0-3.0) mmol/L ABG Hemoglobin (11.7-17.4) g/dL ABG Carboxyhemoglobin (0.5-1.5) % POC ABG HHb (Measured) (0-5) % ABG Methemoglobin (0.0-3.0) % ABG O2 Capacity (16-24) mL/dl Hgb O2 Saturation (95.0-98.0) % FiO2 % Sodium 148 (132-148) mmol/L Potassium 3.5 L (3.6-5.0) mmol/L Chloride 104 (98-107) mmol/L Carbon Dioxide 29 (21-33) mmol/L Anion Gap 18 (10-20) BUN 65 H (7-21) mg/dL Creatinine 1.4 (0.8-1.5) mg/dl Est GFR ( Amer) > 60 Est GFR (Non-Af Amer) 50 POC Glucose (mg/dL) 162 H (65-110) mg/dL Random Glucose 159 H (70-110) mg/dL Calcium 8.0 L (8.4-10.5) mg/dL Total Bilirubin 1.1 (0.2-1.3) mg/dL AST 96 H (17-59) U/L ALT 119 H (7-56) U/L Alkaline Phosphatase 68 (38-126) U/L Total Protein 5.8 (5.8-8.3) g/dL Albumin 2.9 L (3.0-4.8) g/dL Globulin 3.0 gm/dL Albumin/Globulin Ratio 1.0 L (1.1-1.8) 09/20/17 09/20/17 09/19/17 Range/Units 05:32 04:11 23:59 WBC (4.5-11.0) 10^3/ul RBC (3.5-6.1) 10^6/uL Hgb (14.0-18.0) g/dL Hct (42.0-52.0) % MCV (80.0-105.0) fl MCH (25.0-35.0) pg MCHC (31.0-37.0) g/dl RDW (11.5-14.5) % Plt Count (120.0-450.0) 10^3/uL MPV (7.0-11.0) fl Gran % (50.0-68.0) % Lymph % (Auto) (22.0-35.0) % [place] % (Auto) (1.0-6.0) % Eos % (Auto) (1.5-5.0) % Baso % (Auto) (0.0-3.0) % Gran # (1.4-6.5) Lymph # (Auto) (1.2-3.4) [place] # (Auto) (0.1-0.6) Eos # (Auto) (0.0-0.7) Baso # (Auto) (0.0-2.0) K/mm3 PT (9.4-12.5) SECONDS INR (0.93-1.08) pCO2 40 (35-45) mm/Hg pO2 80.0 (80-100) mm/Hg HCO3 29.8 H (21-28) mmol/L ABG pH 7.48 H (7.35-7.45) ABG Total CO2 31.0 H (22-28) mmol.L ABG O2 Saturation 98.9 H (95-98) % ABG O2 Content 12.2 L (15-23) ML/dl ABG Base Excess 5.8 H (-2.0-3.0) mmol/L ABG Hemoglobin 9.0 L (11.7-17.4) g/dL ABG Carboxyhemoglobin 2.9 H (0.5-1.5) % POC ABG HHb (Measured) 1.1 (0-5) % ABG Methemoglobin 0.7 (0.0-3.0) % ABG O2 Capacity 12.3 L (16-24) mL/dl Hgb O2 Saturation 95.4 (95.0-98.0) % FiO2 50.0 % Sodium (132-148) mmol/L Potassium (3.6-5.0) mmol/L Chloride (98-107) mmol/L Carbon Dioxide (21-33) mmol/L Anion Gap (10-20) BUN (7-21) mg/dL Creatinine (0.8-1.5) mg/dl Est GFR ( Amer) Est GFR (Non-Af Amer) POC Glucose (mg/dL) 150 H 196 H (65-110) mg/dL Random Glucose (70-110) mg/dL Calcium (8.4-10.5) mg/dL Total Bilirubin (0.2-1.3) mg/dL AST (17-59) U/L ALT (7-56) U/L Alkaline Phosphatase (38-126) U/L Total Protein (5.8-8.3) g/dL Albumin (3.0-4.8) g/dL Globulin gm/dL Albumin/Globulin Ratio (1.1-1.8) 09/19/17 09/19/17 09/19/17 Range/Units 19:46 16:03 13:28 WBC (4.5-11.0) 10^3/ul RBC (3.5-6.1) 10^6/uL Hgb (14.0-18.0) g/dL Hct (42.0-52.0) % MCV (80.0-105.0) fl MCH (25.0-35.0) pg MCHC (31.0-37.0) g/dl RDW (11.5-14.5) % Plt Count (120.0-450.0) 10^3/uL MPV (7.0-11.0) fl Gran % (50.0-68.0) % Lymph % (Auto) (22.0-35.0) % [place] % (Auto) (1.0-6.0) % Eos % (Auto) (1.5-5.0) % Baso % (Auto) (0.0-3.0) % Gran # (1.4-6.5) Lymph # (Auto) (1.2-3.4) [place] # (Auto) (0.1-0.6) Eos # (Auto) (0.0-0.7) Baso # (Auto) (0.0-2.0) K/mm3 PT 19.7 H (9.4-12.5) SECONDS INR 1.69 H (0.93-1.08) pCO2 (35-45) mm/Hg pO2 (80-100) mm/Hg HCO3 (21-28) mmol/L ABG pH (7.35-7.45) ABG Total CO2 (22-28) mmol.L ABG O2 Saturation (95-98) % ABG O2 Content (15-23) ML/dl ABG Base Excess (-2.0-3.0) mmol/L ABG Hemoglobin (11.7-17.4) g/dL ABG Carboxyhemoglobin (0.5-1.5) % POC ABG HHb (Measured) (0-5) % ABG Methemoglobin (0.0-3.0) % ABG O2 Capacity (16-24) mL/dl Hgb O2 Saturation (95.0-98.0) % FiO2 % Sodium (132-148) mmol/L Potassium (3.6-5.0) mmol/L Chloride (98-107) mmol/L Carbon Dioxide (21-33) mmol/L Anion Gap (10-20) BUN (7-21) mg/dL Creatinine (0.8-1.5) mg/dl Est GFR ( Amer) Est GFR (Non-Af Amer) POC Glucose (mg/dL) 198 H 194 H (65-110) mg/dL Random Glucose (70-110) mg/dL Calcium (8.4-10.5) mg/dL Total Bilirubin (0.2-1.3) mg/dL AST (17-59) U/L ALT (7-56) U/L Alkaline Phosphatase (38-126) U/L Total Protein (5.8-8.3) g/dL Albumin (3.0-4.8) g/dL Globulin gm/dL Albumin/Globulin Ratio (1.1-1.8) 09/19/17 Range/Units 11:44 WBC (4.5-11.0) 10^3/ul RBC (3.5-6.1) 10^6/uL Hgb (14.0-18.0) g/dL Hct (42.0-52.0) % MCV (80.0-105.0) fl MCH (25.0-35.0) pg MCHC (31.0-37.0) g/dl RDW (11.5-14.5) % Plt Count (120.0-450.0) 10^3/uL MPV (7.0-11.0) fl Gran % (50.0-68.0) % Lymph % (Auto) (22.0-35.0) % [place] % (Auto) (1.0-6.0) % Eos % (Auto) (1.5-5.0) % Baso % (Auto) (0.0-3.0) % Gran # (1.4-6.5) Lymph # (Auto) (1.2-3.4) [place] # (Auto) (0.1-0.6) Eos # (Auto) (0.0-0.7) Baso # (Auto) (0.0-2.0) K/mm3 PT (9.4-12.5) SECONDS INR (0.93-1.08) pCO2 (35-45) mm/Hg pO2 (80-100) mm/Hg HCO3 (21-28) mmol/L ABG pH (7.35-7.45) ABG Total CO2 (22-28) mmol.L ABG O2 Saturation (95-98) % ABG O2 Content (15-23) ML/dl ABG Base Excess (-2.0-3.0) mmol/L ABG Hemoglobin (11.7-17.4) g/dL ABG Carboxyhemoglobin (0.5-1.5) % POC ABG HHb (Measured) (0-5) % ABG Methemoglobin (0.0-3.0) % ABG O2 Capacity (16-24) mL/dl Hgb O2 Saturation (95.0-98.0) % FiO2 % Sodium (132-148) mmol/L Potassium (3.6-5.0) mmol/L Chloride (98-107) mmol/L Carbon Dioxide (21-33) mmol/L Anion Gap (10-20) BUN (7-21) mg/dL Creatinine (0.8-1.5) mg/dl Est GFR ( Amer) Est GFR (Non-Af Amer) POC Glucose (mg/dL) 196 H (65-110) mg/dL Random Glucose (70-110) mg/dL Calcium (8.4-10.5) mg/dL Total Bilirubin (0.2-1.3) mg/dL AST (17-59) U/L ALT (7-56) U/L Alkaline Phosphatase (38-126) U/L Total Protein (5.8-8.3) g/dL Albumin (3.0-4.8) g/dL Globulin gm/dL Albumin/Globulin Ratio (1.1-1.8) Laboratory Results - last 24 hr 09/19/17 09/19/17 09/19/17 11:44 13:28 16:03 WBC RBC Hgb Hct MCV MCH MCHC RDW Plt Count MPV Gran % Lymph % (Auto) [place] % (Auto) Eos % (Auto) Baso % (Auto) Gran # Lymph # (Auto) [place] # (Auto) Eos # (Auto) Baso # (Auto) PT 19.7 H INR 1.69 H pCO2 pO2 HCO3 ABG pH ABG Total CO2 ABG O2 Saturation ABG O2 Content ABG Base Excess ABG Hemoglobin ABG Carboxyhemoglobin POC ABG HHb (Measured) ABG Methemoglobin ABG O2 Capacity Hgb O2 Saturation FiO2 Sodium Potassium Chloride Carbon Dioxide Anion Gap BUN Creatinine Est GFR ( Amer) Est GFR (Non-Af Amer) POC Glucose (mg/dL) 196 H 194 H Random Glucose Calcium Total Bilirubin AST ALT Alkaline Phosphatase Total Protein Albumin Globulin Albumin/Globulin Ratio 09/19/17 09/19/17 09/20/17 19:46 23:59 04:11 WBC RBC Hgb Hct MCV MCH MCHC RDW Plt Count MPV Gran % Lymph % (Auto) [place] % (Auto) Eos % (Auto) Baso % (Auto) Gran # Lymph # (Auto) [place] # (Auto) Eos # (Auto) Baso # (Auto) PT INR pCO2 pO2 HCO3 ABG pH ABG Total CO2 ABG O2 Saturation ABG O2 Content ABG Base Excess ABG Hemoglobin ABG Carboxyhemoglobin POC ABG HHb (Measured) ABG Methemoglobin ABG O2 Capacity Hgb O2 Saturation FiO2 Sodium Potassium Chloride Carbon Dioxide Anion Gap BUN Creatinine Est GFR ( Amer) Est GFR (Non-Af Amer) POC Glucose (mg/dL) 198 H 196 H 150 H Random Glucose Calcium Total Bilirubin AST ALT Alkaline Phosphatase Total Protein Albumin Globulin Albumin/Globulin Ratio 09/20/17 09/20/17 09/20/17 05:32 07:00 07:00 WBC 11.9 H RBC 2.97 L Hgb 9.0 L Hct 28.9 L MCV 97.3 MCH 30.3 MCHC 31.1 RDW 18.0 H Plt Count 205 MPV 10.7 Gran % 81.0 H Lymph % (Auto) 12.1 L [place] % (Auto) 6.7 H Eos % (Auto) 0.2 L Baso % (Auto) 0.0 Gran # 9.67 H Lymph # (Auto) 1.4 [place] # (Auto) 0.8 H Eos # (Auto) 0.0 Baso # (Auto) 0.00 PT INR pCO2 40 pO2 80.0 HCO3 29.8 H ABG pH 7.48 H ABG Total CO2 31.0 H ABG O2 Saturation 98.9 H ABG O2 Content 12.2 L ABG Base Excess 5.8 H ABG Hemoglobin 9.0 L ABG Carboxyhemoglobin 2.9 H POC ABG HHb (Measured) 1.1 ABG Methemoglobin 0.7 ABG O2 Capacity 12.3 L Hgb O2 Saturation 95.4 FiO2 50.0 Sodium 148 Potassium 3.5 L Chloride 104 Carbon Dioxide 29 Anion Gap 18 BUN 65 H Creatinine 1.4 Est GFR ( Amer) > 60 Est GFR (Non-Af Amer) 50 POC Glucose (mg/dL) Random Glucose 159 H Calcium 8.0 L Total Bilirubin 1.1 AST 96 H ALT 119 H Alkaline Phosphatase 68 Total Protein 5.8 Albumin 2.9 L Globulin 3.0 Albumin/Globulin Ratio 1.0 L 09/20/17 07:49 WBC RBC Hgb Hct MCV MCH MCHC RDW Plt Count MPV Gran % Lymph % (Auto) [place] % (Auto) Eos % (Auto) Baso % (Auto) Gran # Lymph # (Auto) [place] # (Auto) Eos # (Auto) Baso # (Auto) PT INR pCO2 pO2 HCO3 ABG pH ABG Total CO2 ABG O2 Saturation ABG O2 Content ABG Base Excess ABG Hemoglobin ABG Carboxyhemoglobin POC ABG HHb (Measured) ABG Methemoglobin ABG O2 Capacity Hgb O2 Saturation FiO2 Sodium Potassium Chloride Carbon Dioxide Anion Gap BUN Creatinine Est GFR ( Amer) Est GFR (Non-Af Amer) POC Glucose (mg/dL) 162 H Random Glucose Calcium Total Bilirubin AST ALT Alkaline Phosphatase Total Protein Albumin Globulin Albumin/Globulin Ratio Assessment/Plan - Assessment and Plan (Free Text) Plan: Pt seen and examined with resident on rounds, agree with note with following additions/exceptions: Patient is 67yo male with PMHx of CAD with 15 stents, RA on MTX, HTN, presented with NSTEMI, and gram negative bacteremia, subsequently went into respiratory failure, ARDS, septic/cardiogenic shock, requiring vasopressors. Pt was intubated, sedated, paralyzed, placed on low tidal vol (6cc/PBW). Currently s/p trach yesterday, tolerated procedure well. Continues to be on PRVC 50%, PEEP 10, adequate oxygenation. ECHO with EF 25%. CXR with bilateral alevaolar infiltrates likely combination of PNA with Pulm edema, on IV Lasix Clinically improving Respiratory failure s/p trach ARDS, resolved PNA Cardiogenic Pulm edema RA on MTX NSTEMI Septic Shock, resolved Cardiogenic Shock, resolved Renal Failure, resolved Recommend: - cont with ventilatory support, low tidal vol ventilation, goal plateau<30, ABG monitoring, titrate Fio2 down, daily CPAP trials, s/p trach - CXR with worsening pulm edema, decrease Lasix to 40mg IV q12h - Cont with broad spectrum antibiocs, as per ID - follow up ID - cont with Dobutamine - resume ASA, Brillinta, Statin, Lovenox - Follow up Cardiology - Free water flushes, monitor Na - FS control - GI ppx - DVT ppx - resume feeds, NGT - stable, awaiting Ltach transfer
--- NOTE | 2017-09-20 08:42 | RAD ---
HISTORY: intubated, pulm edema COMPARISON: 09/19/2017. FINDINGS: The tracheostomy tube remains in stable position. LUNGS: There is redemonstration of confluent multifocal airspace disease in the lungs without significant interval change. PLEURA: Suspect small pleural effusion on the right, no pneumothorax apparent. CARDIOVASCULAR: Persistent mild cardiomegaly and prominent central vasculature with mild pulmonary venous congestion and interstitial pulmonary edema. OSSEOUS STRUCTURES: No significant abnormalities. VISUALIZED UPPER ABDOMEN: Normal. OTHER FINDINGS: None. IMPRESSION: No significant interval change in presumable pulmonary edema and right pleural effusion. Persistent cardiomegaly, pulmonary venous congestion and interstitial pulmonary edema. Constellation of findings most compatible with congestive heart failure.
[2017-09-20 08:43] LABS: ALBUMIN 2.9 g/dL (3.0-4.8); ALT/SGPT 119 U/L (7-56); AST/SGOT 96 U/L (17-59); BLOOD UREA NITROGEN 65 mg/dL (7-21); GFR AFRICAN-AMERICAN > 60; GFR NON-AFRICAN AMERICAN 50
[2017-09-20] MEDS: Propofol 10 mg/ml 1,000 MG/100 ML VIAL IV PRN ×2 (08:58→18:30)
[2017-09-20] MEDS: Enoxaparin 100 mg Syringe SC SCH (10:59)
[2017-09-20] MEDS: Linezolid 600 mg in D5W 300 ml 600 MG/300 ML BAG IVPB SCH ×2 (11:00→21:21)
[2017-09-20] MEDS: Meropenem 1 GM in Dextrose 5% In Water 100 ML IVPB SCH ×2 (11:02→21:56)
[2017-09-20] MEDS: Micafungin 100 MG in Dextrose 5% In Water 100 ML IV SCH (11:02)
[2017-09-20] MEDS: Vitamins A & D Oint UD Foilpak TOP PRN (11:03)
[2017-09-20] MEDS: Bacitracin Ointment 30 GM TUBE TOP SCH ×2 (11:04→17:19)
[2017-09-20] MEDS: Metoprolol 1 mg/ml Inj IVP PRN (11:05)
[2017-09-20] MEDS ORDERED: Potassium Chloride 20 mEq/15 ml LIQ UD PO STA (11:48)
[2017-09-20] MEDS ORDERED: Digoxin 500 mcg/2ml (0.5 mg/2ml) Inj IVP ONE ×2 (11:49→16:00)
--- NOTE | 2017-09-20 12:37 | CP.PCM.PN ---
Subjective - Date & Time of Evaluation Date of Evaluation: 09/20/17 Time of Evaluation: 12:36 - Subjective Subjective: Follow up Nephrology Consultation: Assessment: critical Acute Kidney Injury (N17.9) likely due to shock (sepsis + cardiogenic) combined respi and metabolic acidosis with lactic acidosis with acute hypoxic hypercapnic respi failure acute CHF with cardiogenic shock with acute [place] UTI with sepsis and shock DM, HTN, CAD s/p stent, COPD with emphysema and active smoker hypokalemia and hypomagnesemia Plan no acute need for renal replacement therapy at this time continue with lasix IV and free water supplementation No ACEI/ARB due to EMMA. may increase lopressor if BP stays high Monitor Input/Output, daily weights and renal function with basic metabolic panel supplement electrolytes as needed Dose meds/antibiotics for reduced GFR. Avoid fleets enema/magnesium based laxatives. Avoid nephrotoxins/NSAIDs/ iodinated contrast (unless needed emergently) Glycemic control Further work up/management as per primary team overall prognosis guarded. Thanks for allowing me to participate in care of your patient. Please call if any Qs. Dr Hema Driscoll Office: [phone] Chief Complaint; unable reason for consult: EMMA HPI: Pt is a 67 M with hx of diabetes Mellitus ( years), hypertension (years), CAD s/p stent, COPD with emphysema, active smoker initially presented with complaints of nausea/vomitting but had UTI sepsis and shock complicated by Acute [place] and cardiogenic shock, pneumonia and pulmonary edema, respi failure renal consult for EMMA No recent iodinated contrast exposure. had obvious episodes of low BP. ROS: unable Physical Examination: General Appearance: ill appearing, s/p trach Vitals reviewed and noted as below Head; Atraumatic, normocephalic ENT: s/p trach EYES: Sclera is anicteric. Neck; supple no lymphadenopathy, no thyromegaly or bruit Lungs: normal respiratory rate/effort. Breath sounds bilateral decreased at bases anteriorly. he is mechanically ventilated Heart: normal rate. s1s2 normal. No rub or gallop. Extremities: 2+ edema. No varicose veins Neurological: Patient is sedated Skin: Warm and dry. Normal turgor. No rash. Palpitation: Normal elasticity for age Abdomen: Abdomen is soft. Bowel sounds +. There is no abdominal tenderness, no guarding/rigidity no organomegaly Psych: unable MSK: no joint tenderness or swelling. Digits and nails normal, no deformity : kidney or bladder not palpable. has berumen Labs/imaging reviewed. Past medical history, past surgical history, family history, social history, allergy reviewed and noted as below Family hx: no hx of CKD. Rest non-contributory Objective - Vital Signs/Intake and Output Vital Signs (last 24 hours): Temp Pulse Resp BP Pulse Ox 100.2 F H 128 H 11 L 135/79 95 09/20/17 04:00 09/20/17 11:05 09/19/17 15:59 09/20/17 11:05 09/19/17 18:50 Intake and Output: 09/20/17 09/20/17 06:59 18:59 Intake Total 1220 Balance 1220 - Medications Medications: Current Medications Albuterol/Ipratropium (Duoneb 3 Mg/0.5 Mg (3 Ml) Ud) 3 ml IH Q2H PRN PRN Reason: Shortness of Breath Last Admin: 09/07/17 04:25 Dose: 3 ml Albuterol/Ipratropium (Duoneb 3 Mg/0.5 Mg (3 Ml) Ud) 3 ml IH [id number] [facility] Last Admin: 09/20/17 06:59 Dose: 3 ml Apixaban (Eliquis) 5 mg PO BID [facility] PRN Reason: Protocol Artificial Tears (Artificial Tears Opht Oint) 0 gm OU Q12 PRN PRN Reason: Dry eyes Aspirin (Aspirin Chewable) 81 mg PO DAILY [facility] Last Admin: 09/20/17 10:09 Dose: Not Given Bacitracin (Bacitracin) 0 gm TOP BID [facility] Last Admin: 09/20/17 11:04 Dose: 1 applic Calcium Acetate (Phoslo) 1,334 mg PO WM [facility] Last Admin: 09/20/17 09:09 Dose: Not Given Digoxin (Lanoxin) 0.25 mg IVP ONCE ONE Stop: 09/20/17 16:01 Furosemide (Lasix) 60 mg IVP Q12 [facility] Last Admin: 09/20/17 10:50 Dose: 60 mg Dobutamine HCl/Dextrose (Dobutamine/Dextrose 5% 500mg/250ml) 500 mg in 250 mls @ 7.327 mls/hr IV .Q24H PRN; Protocol; 2.5 MCG/KG/MIN PRN Reason: TITRATE PER PROTOCOL Stop: 09/21/17 06:00 Last Admin: 09/19/17 06:55 Dose: 2.5 mcg/kg/min, 7.327 mls/hr Dexmedetomidine HCl (Precedex 4 Mcg/Ml (100 Ml)) 400 mcg in 100 mls @ 4.853 mls /hr IV .[id number] PRN; Protocol; 0.2 MCG/KG/HR PRN Reason: Agitation Last Admin: 09/17/17 05:32 Dose: 1.2 mcg/kg/hr, 29.121 mls/hr Linezolid (Zyvox 600mg/300ml D5w) 600 mg in 300 mls @ 200 mls/hr IVPB Q12 [facility] PRN Reason: Protocol Stop: 09/21/17 10:01 Last Admin: 09/20/17 11:00 Dose: 200 mls/hr Propofol (Diprivan) 1,000 mg in 100 mls @ 2.912 mls/hr IV .Q24H PRN; Protocol; 5 MCG/KG/MIN PRN Reason: TITRATE PER MD ORDER Last Admin: 09/20/17 08:58 Dose: 40 mcg/kg/min, 23.297 mls/hr Micafungin Sodium 100 mg/ (Dextrose) 100 mls @ 100 mls/hr IV DAILY [facility] PRN Reason: Protocol Stop: 09/22/17 10:01 Last Admin: 09/20/17 11:02 Dose: 100 mls/hr Meropenem 1 gm/ Dextrose 100 mls @ 100 mls/hr IVPB Q12 [facility] PRN Reason: Protocol Stop: 09/23/17 10:16 Last Admin: 09/20/17 11:02 Dose: 100 mls/hr Insulin Human Regular (Humulin R High) 0 units SC Q4 [facility] PRN Reason: Protocol Last Admin: 09/20/17 09:05 Dose: 2 units Metoprolol Tartrate (Lopressor) 2.5 mg IVP Q4H PRN PRN Reason: Heart rate Last Admin: 09/20/17 11:05 Dose: 2.5 mg Metoprolol Tartrate (Lopressor) 50 mg PO BID [facility] Nicotine (Nicoderm Cq) 1 patch TD DAILY [facility] Last Admin: 09/20/17 11:00 Dose: 1 patch Pantoprazole Sodium (Protonix Inj) 40 mg IVP BID [facility] Last Admin: 09/20/17 10:50 Dose: 40 mg Ticagrelor (Brilinta) 90 mg PO BID [facility] Last Admin: 09/20/17 10:09 Dose: Not Given Vitamin A (Vitamin A & D Oint Ud Foilpak) 1 ea TOP Q8 PRN PRN Reason: Dry skin Last Admin: 09/20/17 11:03 Dose: 1 ea - Labs Labs: 09/20/17 07:00 09/20/17 07:00 PT 19.7 SECONDS (9.4-12.5) H 09/19/17 13:28 INR 1.69 (0.93-1.08) H 09/19/17 13:28 APTT 45.1 Seconds (25.1-36.5) H 09/15/17 08:15
--- NOTE | 2017-09-20 13:05 | RAD ---
HISTORY: post OGT placement COMPARISON: 09/20/2017 at 5:24 a.m. FINDINGS: LUNGS: Extensive diffuse bilateral pulmonary opacity common nonspecific. Infectious versus inflammatory versus pulmonary edema. Please note that the examination is limited due to an artifactual pattern overlaid on the image, possibly from cooling blanket. PLEURA: There is opacification of both costophrenic angles consistent with pulmonary edema. CARDIOVASCULAR: Normal heart size. Tracheostomy tube. Top of feeding tube. OSSEOUS STRUCTURES: No significant abnormalities. VISUALIZED UPPER ABDOMEN: Normal. OTHER FINDINGS: None. IMPRESSION: Diffuse bilateral pulmonary opacity, nonspecific. Accounting for artifact on the current image, no gross change from earlier examination.
--- NOTE | 2017-09-20 15:24 | CP.PCM.PN ---
<Ana Interiano - Last Filed: 09/20/17 15:21> Subjective - Date & Time of Evaluation Date of Evaluation: 09/20/17 Time of Evaluation: 15:21 - Subjective Subjective: Ana Interiano, PGY1, Medicine Progress Note for Dr Poole: Patient seen and examined at bedside. Pt had low grade fever overnight, 100.6F. Pt had trach placed yesterday by ENT. Pt remains on PRVC settings. Pt more awake , alert, following simple commands. Remains on propofol and Dobutamine drips. ROS unobtainable as pt is sedated Objective - Vital Signs/Intake and Output Vital Signs (last 24 hours): Temp Pulse Resp BP Pulse Ox 100.2 F H 128 H 11 L 135/79 95 09/20/17 04:00 09/20/17 11:05 09/19/17 15:59 09/20/17 11:05 09/19/17 18:50 Intake and Output: 09/20/17 09/20/17 06:59 18:59 Intake Total 1220 Balance 1220 - Medications Medications: Current Medications Albuterol/Ipratropium (Duoneb 3 Mg/0.5 Mg (3 Ml) Ud) 3 ml IH Q2H PRN PRN Reason: Shortness of Breath Last Admin: 09/07/17 04:25 Dose: 3 ml Albuterol/Ipratropium (Duoneb 3 Mg/0.5 Mg (3 Ml) Ud) 3 ml IH [id number] [facility] Last Admin: 09/20/17 13:51 Dose: 3 ml Apixaban (Eliquis) 5 mg PO BID [facility] PRN Reason: Protocol Artificial Tears (Artificial Tears Opht Oint) 0 gm OU Q12 PRN PRN Reason: Dry eyes Aspirin (Aspirin Chewable) 81 mg PO DAILY [facility] Last Admin: 09/20/17 13:42 Dose: 81 mg Bacitracin (Bacitracin) 0 gm TOP BID [facility] Last Admin: 09/20/17 11:04 Dose: 1 applic Calcium Acetate (Phoslo) 1,334 mg PO WM [facility] Last Admin: 09/20/17 12:50 Dose: Not Given Digoxin (Lanoxin) 0.25 mg IVP ONCE ONE Stop: 09/20/17 16:01 Furosemide (Lasix) 60 mg IVP Q12 [facility] Last Admin: 09/20/17 10:50 Dose: 60 mg Dobutamine HCl/Dextrose (Dobutamine/Dextrose 5% 500mg/250ml) 500 mg in 250 mls @ 7.327 mls/hr IV .Q24H PRN; Protocol; 2.5 MCG/KG/MIN PRN Reason: TITRATE PER PROTOCOL Stop: 09/21/17 06:00 Last Admin: 09/19/17 06:55 Dose: 2.5 mcg/kg/min, 7.327 mls/hr Dexmedetomidine HCl (Precedex 4 Mcg/Ml (100 Ml)) 400 mcg in 100 mls @ 4.853 mls /hr IV .[id number] PRN; Protocol; 0.2 MCG/KG/HR PRN Reason: Agitation Last Admin: 09/17/17 05:32 Dose: 1.2 mcg/kg/hr, 29.121 mls/hr Linezolid (Zyvox 600mg/300ml D5w) 600 mg in 300 mls @ 200 mls/hr IVPB Q12 [facility] PRN Reason: Protocol Stop: 09/21/17 10:01 Last Admin: 09/20/17 11:00 Dose: 200 mls/hr Propofol (Diprivan) 1,000 mg in 100 mls @ 2.912 mls/hr IV .Q24H PRN; Protocol; 5 MCG/KG/MIN PRN Reason: TITRATE PER MD ORDER Last Admin: 09/20/17 08:58 Dose: 40 mcg/kg/min, 23.297 mls/hr Micafungin Sodium 100 mg/ (Dextrose) 100 mls @ 100 mls/hr IV DAILY [facility] PRN Reason: Protocol Stop: 09/22/17 10:01 Last Admin: 09/20/17 11:02 Dose: 100 mls/hr Meropenem 1 gm/ Dextrose 100 mls @ 100 mls/hr IVPB Q12 [facility] PRN Reason: Protocol Stop: 09/23/17 10:16 Last Admin: 09/20/17 11:02 Dose: 100 mls/hr Insulin Human Regular (Humulin R High) 0 units SC Q4 [facility] PRN Reason: Protocol Last Admin: 09/20/17 12:27 Dose: 2 units Metoprolol Tartrate (Lopressor) 2.5 mg IVP Q4H PRN PRN Reason: Heart rate Last Admin: 09/20/17 11:05 Dose: 2.5 mg Metoprolol Tartrate (Lopressor) 50 mg PO BID [facility] Nicotine (Nicoderm Cq) 1 patch TD DAILY [facility] Last Admin: 09/20/17 11:00 Dose: 1 patch Pantoprazole Sodium (Protonix Inj) 40 mg IVP BID [facility] Last Admin: 09/20/17 10:50 Dose: 40 mg Ticagrelor (Brilinta) 90 mg PO BID [facility] Last Admin: 09/20/17 10:09 Dose: Not Given Vitamin A (Vitamin A & D Oint Ud Foilpak) 1 ea TOP Q8 PRN PRN Reason: Dry skin Last Admin: 09/20/17 11:03 Dose: 1 ea - Labs Labs: 09/20/17 07:00 09/20/17 07:00 PT 19.7 SECONDS (9.4-12.5) H 09/19/17 13:28 INR 1.69 (0.93-1.08) H 09/19/17 13:28 APTT 45.1 Seconds (25.1-36.5) H 09/15/17 08:15 - Constitutional Appears: Non-toxic, No Acute Distress, Older Than Stated Age, Chronically Ill - Head Exam Head Exam: ATRAUMATIC, NORMOCEPHALIC - Eye Exam Eye Exam: PERRL. absent: Conjunctival injection, Periorbital swelling, Scleral icterus Pupil Exam: PERRL. absent: Fixed, Irregular, Miosis, Unequal - ENT Exam ENT Exam: Mucous Membranes Dry - Neck Exam Neck Exam: Normal Inspection - Respiratory Exam Respiratory Exam: Decreased Breath Sounds, Rhonchi. absent: Accessory Muscle Use, Chest Wall Tenderness, Wheezes, Stridor - Cardiovascular Exam Cardiovascular Exam: Tachycardia, Irregular Rhythm - GI/Abdominal Exam GI & Abdominal Exam: Soft, Normal Bowel Sounds. absent: Distended, Guarding, Tenderness, Organomegaly, Rebound - Extremities Exam Extremities Exam: Normal Inspection, Pedal Edema. absent: Calf Tenderness - Back Exam Back Exam: NORMAL INSPECTION - Neurological Exam Neurological Exam: Altered - Psychiatric Exam Psychiatric exam: Flat Affect - Skin Skin Exam: Dry, Normal Color, Warm Assessment and Plan - Assessment and Plan (Free Text) Assessment: 67 yr old male with PMH with CAD s/p 15 stents, COPD, rheumatoid arthritis found to be in hypoxic respiratory distress, ARDS, NSTEMI, community acquired pneumonia and septic shock secondary to urosepsis with positive blood cultures. Repeat blood/urine cultures negative. Pt continues to have low grade fevers overnight, on Merrem, Doxy, Zyvox, Mycamine. Pt had trach placement yesterday per ENT. Pt likely to go to LTAC. ICU team to discuss with family regarding PEG placement: Respiratory failure - pneumonia vs acute decompensated CHF vs. history of COPD - intubated and sedated on propofol. - on dobutamine drip, midodrine - CT chest: New alveolar and interstitial infiltrates are seen in both lower lobes as well as the right upper lobe. This is superimposed upon chronic emphysematous changes - ABG showing respiratory alkalosis - negative for MRSA - flu negative - legionella negative - duonebs [facility] and PRN - increased lasix 60 IV q 12h - Merrem and Doxy; Zyvox, Mycamine Elevated LFTs: 2/2 NAFLD - LfTs downtrending - Abd US 09/18 showed mild hepatomegaly. Diffuse increased echogenicity in the liver may reflect hepatic steatosis - Consider hep panel - Cont to monitor NSTEMI - troponin elevated - Cardiology (Dr. Arias) following, recs appreciated * Unstable for Cardiac cath * Echo: dilated LV, EF 25-30%, hypokinesis of LV, trace AR, mild/mod MR, mild TR, dilated IVC - ASA - C/w lovenox [address] Arias - heparin drip held. - Hold brilinta due to anemia, per Cardio - holding Beta blockers 2/2 hypotension - holding crestor 2/2 rhabdo and elevated LFTs Hypernatremia: - resolved - Cont to monitor Hypokalemia: - repleted - Cont to monitor EMMA - Lasix 60 IV q12 - UO adequate, in negative fluid balance. - will monitor - nephro on board. appreciate recs UTI - Repeat blood and urine culture negative - UA showing elevated leuk esterase and nitrate - blood cultures showing E. coli - urine culture showing E. coli - abx as above E. coli bacteremia - blood and urine cultures positive for E. coli - Repeat blood and urine prelim negative - Sputum: + yeast - ID consulted, recs appreciated - abx as above Left inguinal hernia - CT abd/pel:There is a 5 cm diameter left inguinal hernia that contains a portion of the sigmoid colon. There is no obstruction - not causing problems at this time Hypotension - dobutamine gtt, and midodrine - Maintain MAP above 65 - holding beta adali for now Immunocompromised 2/2 RA - Bactrim for PCP ppx discontinued due to renal impairment PPX * GI protonix * DVT heparin drip Dispo: LTAC placement, possibly tomorrow? Discussed with Dr. Poole. <Susan Poole - Last Filed: 09/20/17 17:27> Objective - Vital Signs/Intake and Output Vital Signs (last 24 hours): Temp Pulse Resp BP Pulse Ox 98.7 F 133 H 11 L 135/79 95 09/20/17 16:00 09/20/17 14:00 09/19/17 15:59 09/20/17 11:05 09/19/17 18:50 Intake and Output: 09/20/17 09/20/17 06:59 18:59 Intake Total 1220 Balance 1220 - Medications Medications: Current Medications Acetaminophen (Tylenol 325mg Tab) 650 mg PO Q6H PRN PRN Reason: Fever >100.4 F Albuterol/Ipratropium (Duoneb 3 Mg/0.5 Mg (3 Ml) Ud) 3 ml IH Q2H PRN PRN Reason: Shortness of Breath Last Admin: 09/07/17 04:25 Dose: 3 ml Albuterol/Ipratropium (Duoneb 3 Mg/0.5 Mg (3 Ml) Ud) 3 ml IH [id number] [facility] Last Admin: 09/20/17 13:51 Dose: 3 ml Apixaban (Eliquis) 5 mg PO BID [facility] PRN Reason: Protocol Artificial Tears (Artificial Tears Opht Oint) 0 gm OU Q12 PRN PRN Reason: Dry eyes Aspirin (Aspirin Chewable) 81 mg PO DAILY [facility] Last Admin: 09/20/17 13:42 Dose: 81 mg Bacitracin (Bacitracin) 0 gm TOP BID [facility] Last Admin: 09/20/17 11:04 Dose: 1 applic Calcium Acetate (Phoslo) 1,334 mg PO WM [facility] Last Admin: 09/20/17 16:16 Dose: 1,334 mg Furosemide (Lasix) 60 mg IVP Q12 [facility] Last Admin: 09/20/17 10:50 Dose: 60 mg Dobutamine HCl/Dextrose (Dobutamine/Dextrose 5% 500mg/250ml) 500 mg in 250 mls @ 7.327 mls/hr IV .Q24H PRN; Protocol; 2.5 MCG/KG/MIN PRN Reason: TITRATE PER PROTOCOL Stop: 09/21/17 06:00 Last Admin: 09/19/17 06:55 Dose: 2.5 mcg/kg/min, 7.327 mls/hr Dexmedetomidine HCl (Precedex 4 Mcg/Ml (100 Ml)) 400 mcg in 100 mls @ 4.853 mls /hr IV .[id number] PRN; Protocol; 0.2 MCG/KG/HR PRN Reason: Agitation Last Admin: 09/17/17 05:32 Dose: 1.2 mcg/kg/hr, 29.121 mls/hr Linezolid (Zyvox 600mg/300ml D5w) 600 mg in 300 mls @ 200 mls/hr IVPB Q12 [facility] PRN Reason: Protocol Stop: 09/21/17 10:01 Last Admin: 09/20/17 11:00 Dose: 200 mls/hr Propofol (Diprivan) 1,000 mg in 100 mls @ 2.912 mls/hr IV .Q24H PRN; Protocol; 5 MCG/KG/MIN PRN Reason: TITRATE PER MD ORDER Last Admin: 09/20/17 08:58 Dose: 40 mcg/kg/min, 23.297 mls/hr Micafungin Sodium 100 mg/ (Dextrose) 100 mls @ 100 mls/hr IV DAILY [facility] PRN Reason: Protocol Stop: 09/22/17 10:01 Last Admin: 09/20/17 11:02 Dose: 100 mls/hr Meropenem 1 gm/ Dextrose 100 mls @ 100 mls/hr IVPB Q12 [facility] PRN Reason: Protocol Stop: 09/23/17 10:16 Last Admin: 09/20/17 11:02 Dose: 100 mls/hr Insulin Human Regular (Humulin R High) 0 units SC Q4 [facility] PRN Reason: Protocol Last Admin: 09/20/17 16:15 Dose: 7 units Metoprolol Tartrate (Lopressor) 2.5 mg IVP Q4H PRN PRN Reason: Heart rate Last Admin: 09/20/17 11:05 Dose: 2.5 mg Metoprolol Tartrate (Lopressor) 50 mg PO BID [facility] Nicotine (Nicoderm Cq) 1 patch TD DAILY [facility] Last Admin: 09/20/17 11:00 Dose: 1 patch Pantoprazole Sodium (Protonix Inj) 40 mg IVP BID [facility] Last Admin: 09/20/17 10:50 Dose: 40 mg Ticagrelor (Brilinta) 90 mg PO BID [facility] Last Admin: 09/20/17 10:09 Dose: Not Given Vitamin A (Vitamin A & D Oint Ud Foilpak) 1 ea TOP Q8 PRN PRN Reason: Dry skin Last Admin: 09/20/17 11:03 Dose: 1 ea - Labs Labs: 09/20/17 07:00 09/20/17 07:00 PT 19.7 SECONDS (9.4-12.5) H 09/19/17 13:28 INR 1.69 (0.93-1.08) H 09/19/17 13:28 APTT 45.1 Seconds (25.1-36.5) H 09/15/17 08:15 Attending/Attestation - Attestation I have personally seen and examined this patient.: Yes I have fully participated in the care of the patient.: Yes I have reviewed all pertinent clinical information, including history, physical exam and plan: Yes Notes (Text): 09/20/17 17:26 67 year old male with past medical history of CAD s/p stents, systolic CHF, rheumatoid arthritis, and hypertension who initially presented with chest pain and chills. Hospital course was complicated with respiratory failure / ARDS. He was also found to have NSTEMI, afib, E coli bacteremia, pneumonia and UTI. He is currently on aspirin, metoprolol, lasix and eliquis. Statin is on hold due to elevated LFTs. Cardiology is following. Patient is s/p trach POD #1. Continue with iv antibiotics as per ID for pneumonia, UTI and E coli bacteremia. Continue with monitor creatinine and LFTs closely. US abdomen was reviewed as above. Son is at bedside and questions were answered. Susan Poole MD Hospitalist.
[2017-09-20 16:37] VITALS: PULSE 130
--- NOTE | 2017-09-20 17:43 | PN ---
DATE: 09/20/2017 REASON FOR CONSULTATION AND FOLLOWUP: Reg-[id number]-[id number] elevation myocardial infarction, respiratory failure, gram-negative sepsis, septic shock, rhabdomyolysis, vent dependent, status post tracheostomy yesterday. SUBJECTIVE: The patient in vent through the trach, obviously not in apparent distress. I discussed with the . OBJECTIVE VITAL SIGNS: Temperature 100.2, heart rate 112, blood pressure 178/79. HEENT: PERRLA. Extraocular muscles intact. NECK: Supple. No carotid bruit or thyromegaly. CHEST: Clear to auscultation. HEART: S1 and S2 regular. ABDOMEN: Soft. EXTREMITIES: Clubbing and cyanosis negative. Generalized anasarca. LABORATORY DATA: Blood workup as follows: WBC 11.9, hemoglobin 9, hematocrit 28.9, platelet count 206. Chemistry shows sodium 148, potassium 3.2, chloride 104, carbon dioxide 29, anion gap of 18, BUN 65, creatinine 1.4. Troponin 5.8, albumin 2.9, albumin and globulin ratio 1. IMPRESSION: Atrial fibrillation with rapid ventricular rate; status post respiratory failure, vent dependent; status post tracheostomy; gram-negative sepsis; [id number] elevation myocardial infarction; rheumatoid arthritis, rule out Rogelio syndrome; pneumonia; cardiomyopathy, ischemic; status post multiple percutaneous transluminal coronary angioplasty. RECOMMENDATIONS: Not in position to go for cardiac intervention at this time. We will treat medically. We will wean off the Dobutrex. We will start Eliquis 5 mg p.o. b.i.d. Discontinue Dobutrex. We will put atenolol back again to control the heart rate and prepare to transfer to LTAC. Discussed with the family. We will supplement potassium. Continue baby aspirin. We will increase metoprolol to 50 b.i.d. and discontinue Dobutrex. The patient was on Eliquis at home before he came in because of atrial fibrillation, chronic; had failed SURAJ cardioversion in the past. So we will resume back Eliquis and getting ready prepare to discharge to LTAC facility. Since the patient has a normal kidney function, age is 67 and body mass index 35.3, we will start 5 p.o. b.i.d. We will give a dose of digoxin to slow the heart rate and wean off dopamine by tomorrow. I will give one dose of digoxin now, another dose at 4 p.m. and wean off dopamine by tomorrow 7 a.m. No cardiac invasive at this time. Otherwise, the patient end up in multiorgan dysfunction because of the history of recent acute kidney injury. Gracia Arias MD
--- NOTE | 2017-09-20 21:03 | PN ---
DATE: SUBJECTIVE: The patient is in bed, in no acute distress, nontoxic. PHYSICAL EXAMINATION: VITAL SIGNS: On exam, temperature is 98, T-max is of 100.8, blood pressure is 130/70, respiratory rate on the vent, the patient's trached, and heart rate of 100. HEENT: Unremarkable. NECK: Supple. LUNGS: Have decreased breath sounds. HEART: Normal S1, S2. ABDOMEN: Soft, nontender LABORATORY DATA: Reveals a white count of 11,900, and a hemoglobin of 9, platelets of 205. Chemistries reveals a BUN of 65, creatinine of 1.4, AST is 96, ALT is 119, procalcitonin 0.69. Urinalysis is noted. Microbiology is reviewed, yeast in the sputum. Blood cultures are negative. Review of orders reveals the patient to be on micafungin and meropenem, linezolid. The patient had a chest x-ray with extensive diffuse bilateral pulmonary opacity, nonspecific. ASSESSMENT AND PLAN: This is a 67-year-old male with severe sepsis, status post shock, with vent dependent respiratory failure and renal failure due to Escherichia coli bacteremia urine as the source on top of possible myocardial infarction and possible pneumonia, pulmonary edema, hypertension, atrial fibrillation and cardioversion by history, rheumatoid arthritis, COPD, dyslipidemia, history of pancreatitis, and day #11 of meropenem and doxycycline for pneumonia, day #7 of Zyvox and day #7 of Mycamine. The patient on immunosuppressive medications for rheumatoid arthritis and we will continue present course. Overall, prognosis is poor. Azael Lara MD
[2017-09-21] MEDS: Insulin Reg-HIGH-Coverage SC SCH ×2 (00:17→09:51)
[2017-09-21] MEDS: DOBUTamine 500mg/250ml D5W 500 MG/250 ML BAG IV PRN (00:26)
[2017-09-21] MEDS: Albuterol-Ipratrop 3 mg / 0.5 (3 ml) UD IH SCH ×2 (02:30→07:04)
[2017-09-21] MEDS: Propofol 10 mg/ml 1,000 MG/100 ML VIAL IV PRN (03:35)
[2017-09-21 07:11] VITALS: RESP 28
[2017-09-21 07:17] LABS: BASO # 0.01 K/mm3 (0.0-2.0); BASO % 0.1 % (0.0-3.0); EOS % 0.2 % (1.5-5.0); GRAN # 8.61 (1.4-6.5); GRAN % 77.9 % (50.0-68.0); HEMOGLOBIN 8.6 g/dL (14.0-18.0); LYMPH # 1.5 (1.2-3.4); LYMPH % 13.7 % (22.0-35.0); MEAN CELL VOLUME 97.9 fl (80.0-105.0); MEAN CORPUSCULAR HGB CONC 30.6 g/dl (31.0-37.0); MEAN PLATELET VOLUME 11.3 fl (7.0-11.0); MONO # 0.9 (0.1-0.6); MONO % 8.1 % (1.0-6.0); RBC 2.87 10^6/uL (3.5-6.1); RED CELL DISTRIBUTION WIDTH 18.2 % (11.5-14.5); WHITE BLOOD COUNT 11.1 10^3/ul (4.5-11.0)
[2017-09-21 07:36] LABS: ALB/GLOB RATIO 0.9 (1.1-1.8); ALBUMIN 2.5 g/dL (3.0-4.8); ALT/SGPT 95 U/L (7-56); AST/SGOT 62 U/L (17-59); BLOOD UREA NITROGEN 60 mg/dL (7-21); GFR AFRICAN-AMERICAN > 60; GFR NON-AFRICAN AMERICAN 55
[2017-09-21] MEDS ORDERED: Potassium Chloride 20 mEq/15 ml LIQ UD PO STA (07:38)
--- NOTE | 2017-09-21 08:16 | RAD ---
HISTORY: intubated, pulm edema COMPARISON: Portable chest radiographs 09/20/2017 12:31 a.m.. FINDINGS: Endotracheal tube is unchanged in position with nasogastric tube further advanced into the abdomen. Tip of the feeding tube is off the image. LUNGS: Prior: Leg and appears to been removed or other artifact. There is likely a slight improvement in left-sided perihilar infiltrate with basilar atelectasis or infiltrate persisting. Right sided infiltrate persists at the mid to inferior right lung zone. Overall, the pattern is slightly improved but remains difficult to differentiate between pulmonary edema and pneumonia. PLEURA: No interval pneumothorax once again. Limited right pleural effusion is not excluded, borderline at the left. CARDIOVASCULAR: Cardiac silhouette is stable with pulmonary vascular pattern likely somewhat diminished. OSSEOUS STRUCTURES: No significant abnormalities. VISUALIZED UPPER ABDOMEN: Normal. OTHER FINDINGS: None. IMPRESSION: Mild interval improvement in bilateral pulmonary opacity which remain somewhat greater the right than left sides nevertheless a trace right and borderline left pleural effusions evident. Continued clinical and radiographic monitor advised. Overall pattern remains nonspecific.
--- NOTE | 2017-09-21 09:14 | CP.CCUPN ---
CCU Subjective - Physician Review Subjective (Free Text): 09/21/17 09:12 Minimally sedated on propofol. No acute overnight events. No residue on tube feeding. Patient remains febrile. Unable to obtain ROS due to mental status. CCU Objective - Vital Signs / Intake & Output Vital Signs (Last 4 hours): Vital Signs Pulse Resp Pulse Ox 09/21/17 07:10 28 H 99 09/21/17 06:00 104 H Intake and Output (Last 8hrs): Intake & Output 09/20/17 09/21/17 09/21/17 22:59 06:59 14:59 Intake Total 2058 1000 Output Total 1950 1600 Balance 108 -600 Weight 233 lb Intake: IV 1338 400 Left Hand 103 Left Upper arm 785 400 Oral 600 Tube Feeding 120 Other 600 Output: Urine 1950 1600 Urethral ([place]) 1950 1600 Emesis 0 Other: # Bowel Movements 1 1 - Physical Exam Head: Positive for: Atraumatic, Normocephalic Pupils: Positive for: PERRL Extroacular Muscles: Positive for: EOMI Conjunctiva: Positive for: Normal Mouth: Positive for: Moist Mucous Membranes Neck: Positive for: Normal Range of Motion Respiratory/Chest: Positive for: Clear to Auscultation, Good Air Exchange, Other (coarse breath sound.). Negative for: Respiratory Distress, Accessory Muscle Use Cardiovascular: Positive for: Regular Rate and Rhythm, Normal S1, S2. Negative for: Murmurs Abdomen: Positive for: Normal Bowel Sounds. Negative for: Tenderness, Distention, Peritoneal Signs Back: Positive for: Normal Inspection Upper Extremity: Positive for: Normal Inspection. Negative for: Cyanosis, Edema Lower Extremity: Positive for: Normal Inspection. Negative for: Edema Neurological: Positive for: Other (Minimally sedated) Skin: Positive for: Warm, Dry, Normal Color. Negative for: Rashes Psychiatric: Positive for: Normal Affect - Medications Active Medications: Active Medications Generic Name Dose Route Start Last Admin Trade Name Freq PRN Reason Stop Dose Admin Acetaminophen 650 mg 09/20/17 16:12 Tylenol 325mg Tab PO Q6H PRN Fever >100.4 F Albuterol/Ipratropium 3 ml 09/06/17 17:41 09/07/17 04:25 Duoneb 3 Mg/0.5 Mg (3 Ml) Ud IH 3 ml Q2H PRN Administration Shortness of Breath Albuterol/Ipratropium 3 ml 09/07/17 02:00 09/21/17 07:04 Duoneb 3 Mg/0.5 Mg (3 Ml) Ud IH 3 ml [id number] OLMAN Administration Apixaban 5 mg 09/20/17 18:00 09/20/17 17:08 Eliquis PO 5 mg BID OLMAN Administration Protocol Artificial Tears 0 gm 09/17/17 09:48 Artificial Tears Opht Oint OU Q12 PRN Dry eyes Aspirin 81 mg 09/08/17 10:45 09/20/17 13:42 Aspirin Chewable PO 81 mg DAILY OLMAN Administration Bacitracin 0 gm 09/16/17 10:30 09/20/17 17:19 Bacitracin TOP 1 applic BID OLMAN Administration Calcium Acetate 1,334 mg 09/14/17 12:00 09/21/17 08:04 Phoslo PO 1,334 mg WM OLMAN Administration Famotidine 40 mg 09/21/17 22:00 Pepcid PO HS OLMAN Furosemide 60 mg 09/18/17 10:00 09/20/17 21:20 Lasix IVP 60 mg Q12 OLMAN Administration Dexmedetomidine HCl 400 mcg in 100 mls @ 4.853 mls/hr 09/14/17 08:22 05:32 Precedex 4 Mcg/Ml (100 Ml) IV 1.2 mcg/kg/hr .[id number] PRN 29.121 mls/hr Agitation Administration Protocol 0.2 MCG/KG/HR Linezolid 600 mg in 300 mls @ 200 mls/hr 09/14/17 10:00 09/20/17 21:21 Zyvox 600mg/300ml D5w IVPB 09/21/17 10:01 200 mls/hr Q12 OLMAN Administration Protocol Propofol 1,000 mg in 100 mls @ 2.912 mls/hr 09/14/17 17:00 09/21/17 03:35 Diprivan IV 40 mcg/kg/min .Q24H PRN 23.297 mls/hr TITRATE PER MD ORDER Administration Protocol 5 MCG/KG/MIN Micafungin Sodium 100 mg/ 100 mls @ 100 mls/hr 09/16/17 10:00 09/20/17 11:02 Dextrose IV 09/22/17 10:01 100 mls/hr DAILY OLMAN Administration Protocol Meropenem 1 gm/ Dextrose 100 mls @ 100 mls/hr 09/17/17 07:53 09/20/17 21:56 IVPB 09/23/17 10:16 100 mls/hr Q12 LOMAN Administration Protocol Insulin Human Regular 0 units 09/17/17 12:00 09/21/17 00:17 Humulin R High SC Not Given Q4 OLMAN Protocol Metoprolol Tartrate 2.5 mg 09/19/17 19:45 09/20/17 11:05 Lopressor IVP 2.5 mg Q4H PRN Administration Heart rate Metoprolol Tartrate 50 mg 09/20/17 11:48 09/20/17 17:14 Lopressor PO 50 mg BID OLMAN Administration Nicotine 1 patch 09/15/17 11:00 09/20/17 11:00 Nicoderm Cq TD 1 patch DAILY OLMAN Administration Pantoprazole Sodium 40 mg 09/14/17 18:00 09/20/17 17:19 Protonix Inj IVP 40 mg BID OLMAN Administration Potassium Chloride 40 meq 09/21/17 10:00 Potassium Chloride Oral Soln PO 09/21/17 10:01 ONCE ONE Ticagrelor 90 mg 09/08/17 20:00 09/20/17 17:08 Brilinta PO 90 mg BID OLMAN Administration Vitamin A 1 ea 09/12/17 11:45 09/20/17 11:03 Vitamin A & D Oint Ud Foilpak TOP 1 ea Q8 PRN Administration Dry skin - Patient Studies Lab Studies: Microbiology Studies 09/18/17 13:30 Blood Culture - Preliminary Blood NO GROWTH AFTER 48 HOURS 09/18/17 13:00 Blood Culture - Preliminary Blood NO GROWTH AFTER 48 HOURS Lab Studies 09/21/17 09/21/17 09/21/17 Range/Units 07:48 05:48 05:30 WBC (4.5-11.0) 10^3/ul RBC (3.5-6.1) 10^6/uL Hgb (14.0-18.0) g/dL Hct (42.0-52.0) % MCV (80.0-105.0) fl MCH (25.0-35.0) pg MCHC (31.0-37.0) g/dl RDW (11.5-14.5) % Plt Count (120.0-450.0) 10^3/uL MPV (7.0-11.0) fl Gran % (50.0-68.0) % Lymph % (Auto) (22.0-35.0) % Piatt % (Auto) (1.0-6.0) % Eos % (Auto) (1.5-5.0) % Baso % (Auto) (0.0-3.0) % Gran # (1.4-6.5) Lymph # (Auto) (1.2-3.4) Piatt # (Auto) (0.1-0.6) Eos # (Auto) (0.0-0.7) Baso # (Auto) (0.0-2.0) K/mm3 Sodium 148 (132-148) mmol/L Potassium 3.1 L (3.6-5.0) mmol/L Chloride 105 (98-107) mmol/L Carbon Dioxide 32 (21-33) mmol/L Anion Gap 15 (10-20) BUN 60 H (7-21) mg/dL Creatinine 1.3 (0.8-1.5) mg/dl Est GFR ( Amer) > 60 Est GFR (Non-Af Amer) 55 POC Glucose (mg/dL) 173 H 151 H (65-110) mg/dL Random Glucose 159 H (70-110) mg/dL Calcium 8.0 L (8.4-10.5) mg/dL Total Bilirubin 0.8 (0.2-1.3) mg/dL AST 62 H D (17-59) U/L ALT 95 H (7-56) U/L Alkaline Phosphatase 66 (38-126) U/L Total Protein 5.5 L (5.8-8.3) g/dL Albumin 2.5 L (3.0-4.8) g/dL Globulin 2.9 gm/dL Albumin/Globulin Ratio 0.9 L (1.1-1.8) 09/21/17 09/20/17 09/20/17 Range/Units 05:30 23:58 20:05 WBC 11.1 H (4.5-11.0) 10^3/ul RBC 2.87 L (3.5-6.1) 10^6/uL Hgb 8.6 L (14.0-18.0) g/dL Hct 28.1 L (42.0-52.0) % MCV 97.9 (80.0-105.0) fl MCH 30.0 (25.0-35.0) pg MCHC 30.6 L (31.0-37.0) g/dl RDW 18.2 H (11.5-14.5) % Plt Count 171 (120.0-450.0) 10^3/uL MPV 11.3 H (7.0-11.0) fl Gran % 77.9 H (50.0-68.0) % Lymph % (Auto) 13.7 L (22.0-35.0) % Piatt % (Auto) 8.1 H (1.0-6.0) % Eos % (Auto) 0.2 L (1.5-5.0) % Baso % (Auto) 0.1 (0.0-3.0) % Gran # 8.61 H (1.4-6.5) Lymph # (Auto) 1.5 (1.2-3.4) Piatt # (Auto) 0.9 H (0.1-0.6) Eos # (Auto) 0.0 (0.0-0.7) Baso # (Auto) 0.01 (0.0-2.0) K/mm3 Sodium (132-148) mmol/L Potassium (3.6-5.0) mmol/L Chloride (98-107) mmol/L Carbon Dioxide (21-33) mmol/L Anion Gap (10-20) BUN (7-21) mg/dL Creatinine (0.8-1.5) mg/dl Est GFR ( Amer) Est GFR (Non-Af Amer) POC Glucose (mg/dL) 175 H 151 H (65-110) mg/dL Random Glucose (70-110) mg/dL Calcium (8.4-10.5) mg/dL Total Bilirubin (0.2-1.3) mg/dL AST (17-59) U/L ALT (7-56) U/L Alkaline Phosphatase (38-126) U/L Total Protein (5.8-8.3) g/dL Albumin (3.0-4.8) g/dL Globulin gm/dL Albumin/Globulin Ratio (1.1-1.8) 09/20/17 09/20/17 Range/Units 16:02 11:43 WBC (4.5-11.0) 10^3/ul RBC (3.5-6.1) 10^6/uL Hgb (14.0-18.0) g/dL Hct (42.0-52.0) % MCV (80.0-105.0) fl MCH (25.0-35.0) pg MCHC (31.0-37.0) g/dl RDW (11.5-14.5) % Plt Count (120.0-450.0) 10^3/uL MPV (7.0-11.0) fl Gran % (50.0-68.0) % Lymph % (Auto) (22.0-35.0) % Piatt % (Auto) (1.0-6.0) % Eos % (Auto) (1.5-5.0) % Baso % (Auto) (0.0-3.0) % Gran # (1.4-6.5) Lymph # (Auto) (1.2-3.4) Piatt # (Auto) (0.1-0.6) Eos # (Auto) (0.0-0.7) Baso # (Auto) (0.0-2.0) K/mm3 Sodium (132-148) mmol/L Potassium (3.6-5.0) mmol/L Chloride (98-107) mmol/L Carbon Dioxide (21-33) mmol/L Anion Gap (10-20) BUN (7-21) mg/dL Creatinine (0.8-1.5) mg/dl Est GFR ( Amer) Est GFR (Non-Af Amer) POC Glucose (mg/dL) 259 H 182 H (65-110) mg/dL Random Glucose (70-110) mg/dL Calcium (8.4-10.5) mg/dL Total Bilirubin (0.2-1.3) mg/dL AST (17-59) U/L ALT (7-56) U/L Alkaline Phosphatase (38-126) U/L Total Protein (5.8-8.3) g/dL Albumin (3.0-4.8) g/dL Globulin gm/dL Albumin/Globulin Ratio (1.1-1.8) Laboratory Results - last 24 hr 09/20/17 09/20/17 09/20/17 11:43 16:02 20:05 WBC RBC Hgb Hct MCV MCH MCHC RDW Plt Count MPV Gran % Lymph % (Auto) Piatt % (Auto) Eos % (Auto) Baso % (Auto) Gran # Lymph # (Auto) Piatt # (Auto) Eos # (Auto) Baso # (Auto) Sodium Potassium Chloride Carbon Dioxide Anion Gap BUN Creatinine Est GFR ( Amer) Est GFR (Non-Af Amer) POC Glucose (mg/dL) 182 H 259 H 151 H Random Glucose Calcium Total Bilirubin AST ALT Alkaline Phosphatase Total Protein Albumin Globulin Albumin/Globulin Ratio 09/20/17 09/21/17 09/21/17 23:58 05:30 05:30 WBC 11.1 H RBC 2.87 L Hgb 8.6 L Hct 28.1 L MCV 97.9 MCH 30.0 MCHC 30.6 L RDW 18.2 H Plt Count 171 MPV 11.3 H Gran % 77.9 H Lymph % (Auto) 13.7 L Piatt % (Auto) 8.1 H Eos % (Auto) 0.2 L Baso % (Auto) 0.1 Gran # 8.61 H Lymph # (Auto) 1.5 Piatt # (Auto) 0.9 H Eos # (Auto) 0.0 Baso # (Auto) 0.01 Sodium 148 Potassium 3.1 L Chloride 105 Carbon Dioxide 32 Anion Gap 15 BUN 60 H Creatinine 1.3 Est GFR ( Amer) > 60 Est GFR (Non-Af Amer) 55 POC Glucose (mg/dL) 175 H Random Glucose 159 H Calcium 8.0 L Total Bilirubin 0.8 AST 62 H D ALT 95 H Alkaline Phosphatase 66 Total Protein 5.5 L Albumin 2.5 L Globulin 2.9 Albumin/Globulin Ratio 0.9 L 09/21/17 09/21/17 05:48 07:48 WBC RBC Hgb Hct MCV MCH MCHC RDW Plt Count MPV Gran % Lymph % (Auto) Piatt % (Auto) Eos % (Auto) Baso % (Auto) Gran # Lymph # (Auto) Piatt # (Auto) Eos # (Auto) Baso # (Auto) Sodium Potassium Chloride Carbon Dioxide Anion Gap BUN Creatinine Est GFR ( Amer) Est GFR (Non-Af Amer) POC Glucose (mg/dL) 151 H 173 H Random Glucose Calcium Total Bilirubin AST ALT Alkaline Phosphatase Total Protein Albumin Globulin Albumin/Globulin Ratio Fingerstick Blood Sugar Results: 151 Assessment/Plan - Assessment and Plan (Free Text) Assessment: This is 67 yr old male with PMH with CAD s/p 15 stents, COPD, rheumatoid arthritis found to be in hypoxic respiratory distress, ARDS, NSTEMI, community acquired pneumonia and septic shock secondary to urosepsis with positive blood cultures. Patient is noted to have pulmonary edema as well as EMMA (improved). Plan: Neuro: Intubated, minimally sedated with Propofol Maintain normothermia CV: NSTEMI w/ Hx of CAD and 15 stents a.fib (rate controlled) CXR showed pulmonary edema is improving Continue Lasix q12 Continue Dobutamine, ASA, Lipitor, resumed brilinta Cardio following On eliquis for afib. Maintain MAP >65 Monitor I&O Pulm: Hypoxic Resp failure, Community acquired pneumonia as well as pulm vascular congestion s/p trach yesterday, repeat x-ray with vascular congestion- not much of an improvement Continue Lasix Titrate to maintain spO2>92% Protective Vent strategy, with high peep and TV of 6-8 ml/kg of predicted body weight HOB elevated, aspiration precaution Continue Duoneb, Nicotine patch GI: pending peg PPI for gi prophylaxis Heme: Anemia- Hgb stable- no overt signs of bleeding Continue to monitor Nephro: Hypernatremia-resolved Hypokalemia/hypomagnesemia - will replete and continue to monitor. Nephro following Maintain euvolemia and monitor I&O ID: Septic shock with UTI and CAP as the possible sourse febrile, leukocytosis trending down Blood culture and urine culture + for G- lauren. Repeat blood and urine Cultures all now negative ID following Continue Merrem, Zyvox, Doxy and Micofungin as per ID Endo: Hx of DM Continue with insulin sliding scale Maintain euglycemia (140-180) DVT ppx: Lovenox Dispo:Possible LTAC Patient seen, examined and case discussed with the attending.
[2017-09-21 09:27] VITALS: TEMP 99.4
[2017-09-21] MEDS: Micafungin 100 MG in Dextrose 5% In Water 100 ML IV SCH (09:52)
[2017-09-21] MEDS: Meropenem 1 GM in Dextrose 5% In Water 100 ML IVPB SCH (09:52)
[2017-09-21] MEDS ORDERED: Potassium Chloride 20 mEq/15 ml LIQ UD PO ONE (10:00)
[2017-09-21] MEDS: Linezolid 600 mg in D5W 300 ml 600 MG/300 ML BAG IVPB SCH (10:08)
[2017-09-21] MEDS: Bacitracin Ointment 30 GM TUBE TOP SCH (10:58)
--- NOTE | 2017-09-21 12:20 | CP.PCM.DIS ---
<Ana Interiano - Last Filed: 09/22/17 16:59> Provider - Provider Date of Admission: 09/06/17 14:54 Attending physician: Susan Poole MD Consults: Cardio: Hugo ID: Jane Nephro: Marilyn Time Spent in preparation of Discharge (in minutes): 60 Diagnosis - Discharge Diagnosis (1) NSTEMI (non-ST elevated myocardial infarction) Status: Acute (2) EMMA (acute kidney injury) Status: Acute (3) Pneumonia Status: Acute (4) Rhabdomyolysis Status: Acute (5) ACS (acute coronary syndrome) Status: Acute (6) Sepsis Status: Acute (7) UTI (urinary tract infection) Status: Acute Hospital Course - Lab Results Lab Results: Micro Results 09/18/17 13:30 Blood Blood Culture - Preliminary NO GROWTH AFTER 48 HOURS 09/18/17 13:00 Blood Blood Culture - Preliminary NO GROWTH AFTER 48 HOURS 09/14/17 10:30 Blood-Thru Central Line Blood Culture - Final NO GROWTH AFTER 5 DAYS 09/14/17 10:30 Blood-Thru Central Line Gram Stain - Final TEST NOT PERFORMED 09/14/17 10:00 Blood-Thru Central Line Blood Culture - Final NO GROWTH AFTER 5 DAYS 09/14/17 10:00 Blood-Thru Central Line Gram Stain - Final TEST NOT PERFORMED 09/13/17 07:00 Blood-Venous Blood Culture - Final NO GROWTH AFTER 5 DAYS 09/13/17 07:00 Blood-Venous Gram Stain - Final TEST NOT PERFORMED 09/13/17 06:45 Blood-Venous Blood Culture - Final NO GROWTH AFTER 5 DAYS 09/13/17 06:45 Blood-Venous Gram Stain - Final TEST NOT PERFORMED 09/14/17 21:34 Sputum Gram Stain - Final 09/14/17 21:34 Sputum Sputum Culture - Final Yeast Species 09/09/17 11:15 Blood-Venous Blood Culture - Final NO GROWTH AFTER 5 DAYS 09/09/17 11:15 Blood-Venous Gram Stain - Final TEST NOT PERFORMED 09/09/17 11:00 Blood-Venous Blood Culture - Final NO GROWTH AFTER 5 DAYS 09/09/17 11:00 Blood-Venous Gram Stain - Final TEST NOT PERFORMED 09/10/17 10:00 Trachasp Gram Stain - Final 09/10/17 10:00 Trachasp Sputum Culture - Final Yeast Species 09/10/17 10:20 Urine,[place] Urine Culture - Final No Growth (<1,000 CFU/ML) 09/07/17 07:00 Naris MRSA Culture (Admit) - Final MRSA NOT DETECTED Most Recent Lab Values WBC 11.1 10^3/ul (4.5-11.0) H 09/21/17 05:30 RBC 2.87 10^6/uL (3.5-6.1) L 09/21/17 05:30 Hgb 8.6 g/dL (14.0-18.0) L 09/21/17 05:30 Hct 28.1 % (42.0-52.0) L 09/21/17 05:30 MCV 97.9 fl (80.0-105.0) 09/21/17 05:30 MCH 30.0 pg (25.0-35.0) 09/21/17 05:30 MCHC 30.6 g/dl (31.0-37.0) L 09/21/17 05:30 RDW 18.2 % (11.5-14.5) H 09/21/17 05:30 Plt Count 171 10^3/uL (120.0-450.0) 09/21/17 05:30 MPV 11.3 fl (7.0-11.0) H 09/21/17 05:30 Gran % 77.9 % (50.0-68.0) H 09/21/17 05:30 Lymph % (Auto) 13.7 % (22.0-35.0) L 09/21/17 05:30 Woodward % (Auto) 8.1 % (1.0-6.0) H 09/21/17 05:30 Eos % (Auto) 0.2 % (1.5-5.0) L 09/21/17 05:30 Baso % (Auto) 0.1 % (0.0-3.0) 09/21/17 05:30 Gran # 8.61 (1.4-6.5) H 09/21/17 05:30 Lymph # (Auto) 1.5 (1.2-3.4) 09/21/17 05:30 [place] # (Auto) 0.9 (0.1-0.6) H 09/21/17 05:30 Eos # (Auto) 0.0 (0.0-0.7) 09/21/17 05:30 Baso # (Auto) 0.01 K/mm3 (0.0-2.0) 09/21/17 05:30 Neutrophils % (Manual) 91 % (50.0-70.0) H 09/06/17 06:45 Band Neutrophils % 5 % (0-2) H 09/06/17 06:45 Lymphocytes % (Manual) 3 % (22.0-35.0) L 09/06/17 06:45 Monocytes % (Manual) 1 % (1.0-6.0) 09/06/17 06:45 Platelet Evaluation Normal (NORMAL) 09/06/17 06:45 PT 19.7 SECONDS (9.4-12.5) H 09/19/17 13:28 INR 1.69 (0.93-1.08) H 09/19/17 13:28 APTT 45.1 Seconds (25.1-36.5) H 09/15/17 08:15 pCO2 40 mm/Hg (35-45) 09/20/17 05:32 pO2 80.0 mm/Hg (80-100) 09/20/17 05:32 HCO3 29.8 mmol/L (21-28) H 09/20/17 05:32 ABG pH 7.48 (7.35-7.45) H 09/20/17 05:32 ABG Total CO2 31.0 mmol.L (22-28) H 09/20/17 05:32 ABG O2 Saturation 98.9 % (95-98) H 09/20/17 05:32 ABG O2 Content 12.2 ML/dl (15-23) L 09/20/17 05:32 ABG Base Excess 5.8 mmol/L (-2.0-3.0) H 09/20/17 05:32 ABG Hemoglobin 9.0 g/dL (11.7-17.4) L 09/20/17 05:32 ABG Carboxyhemoglobin 2.9 % (0.5-1.5) H 09/20/17 05:32 POC ABG HHb (Measured) 1.1 % (0-5) 09/20/17 05:32 ABG Methemoglobin 0.7 % (0.0-3.0) 09/20/17 05:32 ABG O2 Capacity 12.3 mL/dl (16-24) L 09/20/17 05:32 ABG Potassium 6.1 mmol/L (3.6-5.2) H 09/12/17 06:00 VBG pH 7.25 (7.32-7.43) L 09/06/17 10:40 VBG pCO2 42.0 (40-60) 09/06/17 10:40 VBG HCO3 18.4 mmol/l (21-28) L 09/06/17 10:40 VBG Total CO2 19.7 mmol.L (22-28) L 09/06/17 10:40 VBG O2 Sat (Calc) 62.7 % (40-65) 09/06/17 10:40 VBG Base Excess -8.5 mmol/L (0.0-2.0) L 09/06/17 10:40 VBG Potassium 5.0 mmol/L (3.6-5.2) 09/06/17 10:40 Hgb O2 Saturation 95.4 % (95.0-98.0) 09/20/17 05:32 Sodium 146.0 mmol/L (132-148) 09/12/17 06:00 Chloride 115.0 mmol/L (98-107) H 09/12/17 06:00 Glucose 262 mg/dl (75-110) H 09/12/17 06:00 Lactate 1.2 mmol/L (0.7-2.1) 09/12/17 06:00 Mechanical Rate 22 09/10/17 10:25 FiO2 50.0 % 09/20/17 05:32 Tidal Volume 420 09/10/17 10:25 PEEP 12 09/10/17 10:25 Sodium 148 mmol/L (132-148) 09/21/17 05:30 Potassium 3.1 mmol/L (3.6-5.0) L 09/21/17 05:30 Chloride 105 mmol/L (98-107) 09/21/17 05:30 Carbon Dioxide 32 mmol/L (21-33) 09/21/17 05:30 Anion Gap 15 (10-20) 09/21/17 05:30 BUN 60 mg/dL (7-21) H 09/21/17 05:30 Creatinine 1.3 mg/dl (0.8-1.5) 09/21/17 05:30 Est GFR ( Amer) > 60 09/21/17 05:30 Est GFR (Non-Af Amer) 55 09/21/17 05:30 POC Glucose (mg/dL) 173 mg/dL (65-110) H 09/21/17 07:48 Random Glucose 159 mg/dL (70-110) H 09/21/17 05:30 Hemoglobin A1c 6.9 % (4.2-6.5) H 09/06/17 06:45 Lactic Acid 5.3 mmol/L (0.7-2.1) H* 09/06/17 02:40 Calcium 8.0 mg/dL (8.4-10.5) L 09/21/17 05:30 Phosphorus 4.4 mg/dL (2.5-4.5) 09/19/17 05:30 Magnesium 1.7 mg/dL (1.7-2.2) 09/21/17 05:30 Total Bilirubin 0.8 mg/dL (0.2-1.3) 09/21/17 05:30 AST 62 U/L (17-59) H D 09/21/17 05:30 ALT 95 U/L (7-56) H 09/21/17 05:30 Alkaline Phosphatase 66 U/L (38-126) 09/21/17 05:30 Lactate Dehydrogenase 2508 U/L (333-699) H 09/10/17 05:00 Total Creatine Kinase 381 U/L (35-230) H 09/10/17 05:00 CK-MB (CK-2) 2.3 ng/mL (0.0-3.6) 09/10/17 05:00 CK-MB (CK-2) % 1.4 % (2.5-3.0) L 09/08/17 06:40 Troponin I 45.90 ng/mL H* 09/10/17 05:00 NT-Pro-B Natriuret Pep 2600 pg/mL (0-450) H 09/06/17 08:30 Total Protein 5.5 g/dL (5.8-8.3) L 09/21/17 05:30 Albumin 2.5 g/dL (3.0-4.8) L 09/21/17 05:30 Globulin 2.9 gm/dL 09/21/17 05:30 Albumin/Globulin Ratio 0.9 (1.1-1.8) L 09/21/17 05:30 Triglycerides 143 mg/dL (35-160) 09/06/17 08:30 Cholesterol 124 mg/dL (130-200) L 09/06/17 08:30 LDL Cholesterol Direct 69 mg/dL (0-129) 09/06/17 08:30 HDL Cholesterol 31 mg/dL (29-60) 09/06/17 08:30 Lipase 48 U/L (23-300) 09/05/17 21:45 Prostate Specific Ag 1.9 ng/mL (0.00-2.5) 09/11/17 09:30 TSH 3rd Generation 1.15 mIU/mL (0.46-4.68) 09/06/17 06:45 Procalcitonin 0.69 NG/ML (0.19-0.49) H 09/18/17 13:30 Prolactin 9.1 ng/mL (3.7-17.9) 09/08/17 11:10 Venous Blood Potassium 5.0 mmol/L (3.6-5.2) 09/06/17 10:40 Arterial Blood Potassium 6.1 mmol/L (3.6-5.2) H 09/12/17 06:00 Urine Color Yellow (YELLOW) 09/05/17 23:00 Urine Appearance Sl cloudy (CLEAR) 09/05/17 23:00 Urine pH 6.0 (4.7-8.0) 09/05/17 23:00 Ur Specific [place] 1.025 (1.005-1.035) 09/05/17 23:00 Urine Protein Trace mg/dL (<30 mg/dL) H 09/05/17 23:00 Urine Glucose (UA) Negative mg/dL (NEGATIVE) 09/05/17 23:00 Urine Ketones Negative mg/dL (NEGATIVE) 09/05/17 23:00 Urine Blood Negative (NEGATIVE) 09/05/17 23:00 Urine Nitrate Positive (NEGATIVE) H 09/05/17 23:00 Urine Bilirubin Negative (NEGATIVE) 09/05/17 23:00 Urine Urobilinogen 0.2 E.U./dL (<1 E.U./dL) 09/05/17 23:00 Ur Leukocyte Esterase Small Barbi/uL (NEGATIVE) H 09/05/17 23:00 Urine RBC 0 - 2 /hpf (0-2) 09/05/17 23:00 Urine WBC 10 - 15 /hpf (0-6) 09/05/17 23:00 Ur Epithelial Cells 0 - 2 /hpf (0-5) 09/05/17 23:00 Urine Bacteria Many (NEG) 09/05/17 23:00 Digoxin < 0.4 ng/mL (0.8-2.0) L 09/05/17 23:00 Influenza Typ A,B (EIA) Negative for flu a/b (NEGATIVE) 09/06/17 01:50 Ur L.pneumophila Ag Negative (NEGATIVE) 09/07/17 09:00 Aspergillus Antigen Not detected (Not Detected) 09/14/17 11:30 Aspergillus Index Value 0.16 (<0.50) 09/14/17 11:30 Ur Strep pneumoniae Ag Not detected 09/07/17 09:00 Beta-(1,3)-D-Glucan pg/mL (()) 09/14/17 11:30 B-(1,3)-D-Glucan Intrp See note 09/14/17 11:30 - Hospital Course Hospital Course: 66 year old male with past medical hx of HTN, afib with hx of SURAJ/cardioversion , rheumatoid arthritis, COPD, hypercholesterolemia, presents to ED for chills. Pt was mildly hypotensive, lactate elevated. Code sepsis called in ED, pt then complained of chest pain. EKG did not show any ST/T wave changes, however, troponins were elevated. Pt admitted for NSTEMI, and E. coli bacteremia from UTI (also found to be E coli). Statin was held due to elevated LFTs. Rapid response was then called on patient as he was tachypneic with low oxygen saturation, requiring intubation and management in ICU. Pt then went into ARDS, septic/cardiogenic shock reqiuring vasopressors. Pt remained intubated, paralyzed. On Dobutamine drip. Echocardiogram showed EF 25%. CXR with bilateral alevaolar infiltrates likely combination of PNA with pulm edema. Pt considered not a good candidate for cardiac cath currently due to patient's condition. Pt' s repeat blood, urine, sputum cultures negative. Pt went through courses of antibiotics/antimicrobials, including Merrem, Doxycycline, Zyvox, Mycamine. Pt underwent trach placement and pt tolerating tube feeds well with no residuals. Despite the above management and repeat cultures negative, pt maintained a low grade fever. Pt to obtain an abdominal CT at LT[facility] in 2-3 days, to continue with Merrem and Mycamine for 4 days. Pt to continue IV lasix 60 mg IV BID for 3 days , then switch to 60 mg PO BID. Discussed the above course/regimen with family, and all questions answered. Discharge Exam - Additional Findings Additional findings: - Constitutional Appears: Non-toxic, No Acute Distress, Older Than Stated Age, Chronically Ill - Head Exam Head Exam: ATRAUMATIC, NORMOCEPHALIC - Eye Exam Eye Exam: PERRL. absent: Conjunctival injection, Periorbital swelling, Scleral icterus Pupil Exam: PERRL. absent: Fixed, Irregular, Miosis, Unequal - ENT Exam ENT Exam: Mucous Membranes Moist - Neck Exam Neck Exam: Normal Inspection - Respiratory Exam Respiratory Exam: CTA bilaterally. absent: Accessory Muscle Use, Chest Wall Tenderness, Wheezes, Stridor - Cardiovascular Exam Cardiovascular Exam: Irregular Rhythm - GI/Abdominal Exam GI & Abdominal Exam: Soft, Normal Bowel Sounds. absent: Distended, Guarding, Tenderness, Organomegaly, Rebound - Extremities Exam Extremities Exam: Normal Inspection, Pedal Edema. absent: Calf Tenderness - Back Exam Back Exam: NORMAL INSPECTION - Neurological Exam Neurological Exam: awake, opens eyes spontaneously, follows simple commands. - Psychiatric Exam Psychiatric exam: Normal affect. - Skin Skin Exam: Dry, Normal Color, Warm Discharge Plan - Follow Up Plan Condition: STABLE Disposition: [facility] Instructions: Chest Pain (DC), Chest Pain (GEN), Acute Kidney Injury (DC), Urinary Tract Infection in Men (DC), Rhabdomyolysis (DC), Sepsis (GEN), Dysuria (GEN) Additional Instructions: 1) take prescribed meds as ordered. Complete 4 more days of Merrem and Mycamin (as ordered). 2) follow up with doctor. 3) Obtain CT Abd/pelvis in 1-3 days 4) After finishing IV lasix 60mg q12 x3 days, start on 60mg PO Lasix BID 5) Statin held due to elevated LFTs. Monitor at LTAC. If downtrending/normal LFTs, reconsider restarting statin. <Susan Poole - Last Filed: 09/22/17 18:31> Provider - Provider Date of Admission: 09/06/17 14:54 Attending physician: Susan Poole MD Hospital Course - Lab Results Lab Results: Micro Results 09/18/17 13:30 Blood Blood Culture - Preliminary NO GROWTH AFTER 4 DAYS 09/18/17 13:00 Blood Blood Culture - Preliminary NO GROWTH AFTER 4 DAYS 09/14/17 10:30 Blood-Thru Central Line Blood Culture - Final NO GROWTH AFTER 5 DAYS 09/14/17 10:30 Blood-Thru Central Line Gram Stain - Final TEST NOT PERFORMED 09/14/17 10:00 Blood-Thru Central Line Blood Culture - Final NO GROWTH AFTER 5 DAYS 09/14/17 10:00 Blood-Thru Central Line Gram Stain - Final TEST NOT PERFORMED 09/13/17 07:00 Blood-Venous Blood Culture - Final NO GROWTH AFTER 5 DAYS 09/13/17 07:00 Blood-Venous Gram Stain - Final TEST NOT PERFORMED 09/13/17 06:45 Blood-Venous Blood Culture - Final NO GROWTH AFTER 5 DAYS 09/13/17 06:45 Blood-Venous Gram Stain - Final TEST NOT PERFORMED 09/14/17 21:34 Sputum Gram Stain - Final 09/14/17 21:34 Sputum Sputum Culture - Final Yeast Species 09/09/17 11:15 Blood-Venous Blood Culture - Final NO GROWTH AFTER 5 DAYS 09/09/17 11:15 Blood-Venous Gram Stain - Final TEST NOT PERFORMED 09/09/17 11:00 Blood-Venous Blood Culture - Final NO GROWTH AFTER 5 DAYS 09/09/17 11:00 Blood-Venous Gram Stain - Final TEST NOT PERFORMED 09/10/17 10:00 Trachasp Gram Stain - Final 09/10/17 10:00 Trachasp Sputum Culture - Final Yeast Species 09/10/17 10:20 Urine,[place] Urine Culture - Final No Growth (<1,000 CFU/ML) 09/07/17 07:00 Naris MRSA Culture (Admit) - Final MRSA NOT DETECTED Most Recent Lab Values WBC 11.1 10^3/ul (4.5-11.0) H 09/21/17 05:30 RBC 2.87 10^6/uL (3.5-6.1) L 09/21/17 05:30 Hgb 8.6 g/dL (14.0-18.0) L 09/21/17 05:30 Hct 28.1 % (42.0-52.0) L 09/21/17 05:30 MCV 97.9 fl (80.0-105.0) 09/21/17 05:30 MCH 30.0 pg (25.0-35.0) 09/21/17 05:30 MCHC 30.6 g/dl (31.0-37.0) L 09/21/17 05:30 RDW 18.2 % (11.5-14.5) H 09/21/17 05:30 Plt Count 171 10^3/uL (120.0-450.0) 09/21/17 05:30 MPV 11.3 fl (7.0-11.0) H 09/21/17 05:30 Gran % 77.9 % (50.0-68.0) H 09/21/17 05:30 Lymph % (Auto) 13.7 % (22.0-35.0) L 09/21/17 05:30 [place] % (Auto) 8.1 % (1.0-6.0) H 09/21/17 05:30 Eos % (Auto) 0.2 % (1.5-5.0) L 09/21/17 05:30 Baso % (Auto) 0.1 % (0.0-3.0) 09/21/17 05:30 Gran # 8.61 (1.4-6.5) H 09/21/17 05:30 Lymph # (Auto) 1.5 (1.2-3.4) 09/21/17 05:30 [place] # (Auto) 0.9 (0.1-0.6) H 09/21/17 05:30 Eos # (Auto) 0.0 (0.0-0.7) 09/21/17 05:30 Baso # (Auto) 0.01 K/mm3 (0.0-2.0) 09/21/17 05:30 Neutrophils % (Manual) 91 % (50.0-70.0) H 09/06/17 06:45 Band Neutrophils % 5 % (0-2) H 09/06/17 06:45 Lymphocytes % (Manual) 3 % (22.0-35.0) L 09/06/17 06:45 Monocytes % (Manual) 1 % (1.0-6.0) 09/06/17 06:45 Platelet Evaluation Normal (NORMAL) 09/06/17 06:45 PT 19.7 SECONDS (9.4-12.5) H 09/19/17 13:28 INR 1.69 (0.93-1.08) H 09/19/17 13:28 APTT 45.1 Seconds (25.1-36.5) H 09/15/17 08:15 pCO2 40 mm/Hg (35-45) 09/20/17 05:32 pO2 80.0 mm/Hg (80-100) 09/20/17 05:32 HCO3 29.8 mmol/L (21-28) H 09/20/17 05:32 ABG pH 7.48 (7.35-7.45) H 09/20/17 05:32 ABG Total CO2 31.0 mmol.L (22-28) H 09/20/17 05:32 ABG O2 Saturation 98.9 % (95-98) H 09/20/17 05:32 ABG O2 Content 12.2 ML/dl (15-23) L 09/20/17 05:32 ABG Base Excess 5.8 mmol/L (-2.0-3.0) H 09/20/17 05:32 ABG Hemoglobin 9.0 g/dL (11.7-17.4) L 09/20/17 05:32 ABG Carboxyhemoglobin 2.9 % (0.5-1.5) H 09/20/17 05:32 POC ABG HHb (Measured) 1.1 % (0-5) 09/20/17 05:32 ABG Methemoglobin 0.7 % (0.0-3.0) 09/20/17 05:32 ABG O2 Capacity 12.3 mL/dl (16-24) L 09/20/17 05:32 ABG Potassium 6.1 mmol/L (3.6-5.2) H 09/12/17 06:00 VBG pH 7.25 (7.32-7.43) L 09/06/17 10:40 VBG pCO2 42.0 (40-60) 09/06/17 10:40 VBG HCO3 18.4 mmol/l (21-28) L 09/06/17 10:40 VBG Total CO2 19.7 mmol.L (22-28) L 09/06/17 10:40 VBG O2 Sat (Calc) 62.7 % (40-65) 09/06/17 10:40 VBG Base Excess -8.5 mmol/L (0.0-2.0) L 09/06/17 10:40 VBG Potassium 5.0 mmol/L (3.6-5.2) 09/06/17 10:40 Hgb O2 Saturation 95.4 % (95.0-98.0) 09/20/17 05:32 Sodium 146.0 mmol/L (132-148) 09/12/17 06:00 Chloride 115.0 mmol/L (98-107) H 09/12/17 06:00 Glucose 262 mg/dl (75-110) H 09/12/17 06:00 Lactate 1.2 mmol/L (0.7-2.1) 09/12/17 06:00 Mechanical Rate 22 09/10/17 10:25 FiO2 50.0 % 09/20/17 05:32 Tidal Volume 420 09/10/17 10:25 PEEP 12 09/10/17 10:25 Sodium 148 mmol/L (132-148) 09/21/17 05:30 Potassium 3.1 mmol/L (3.6-5.0) L 09/21/17 05:30 Chloride 105 mmol/L (98-107) 09/21/17 05:30 Carbon Dioxide 32 mmol/L (21-33) 09/21/17 05:30 Anion Gap 15 (10-20) 09/21/17 05:30 BUN 60 mg/dL (7-21) H 09/21/17 05:30 Creatinine 1.3 mg/dl (0.8-1.5) 09/21/17 05:30 Est GFR ( Amer) > 60 09/21/17 05:30 Est GFR (Non-Af Amer) 55 09/21/17 05:30 POC Glucose (mg/dL) 173 mg/dL (65-110) H 09/21/17 07:48 Random Glucose 159 mg/dL (70-110) H 09/21/17 05:30 Hemoglobin A1c 6.9 % (4.2-6.5) H 09/06/17 06:45 Lactic Acid 5.3 mmol/L (0.7-2.1) H* 09/06/17 02:40 Calcium 8.0 mg/dL (8.4-10.5) L 09/21/17 05:30 Phosphorus 4.4 mg/dL (2.5-4.5) 09/19/17 05:30 Magnesium 1.7 mg/dL (1.7-2.2) 09/21/17 05:30 Total Bilirubin 0.8 mg/dL (0.2-1.3) 09/21/17 05:30 AST 62 U/L (17-59) H D 09/21/17 05:30 ALT 95 U/L (7-56) H 09/21/17 05:30 Alkaline Phosphatase 66 U/L (38-126) 09/21/17 05:30 Lactate Dehydrogenase 2508 U/L (333-699) H 09/10/17 05:00 Total Creatine Kinase 381 U/L (35-230) H 09/10/17 05:00 CK-MB (CK-2) 2.3 ng/mL (0.0-3.6) 09/10/17 05:00 CK-MB (CK-2) % 1.4 % (2.5-3.0) L 09/08/17 06:40 Troponin I 45.90 ng/mL H* 09/10/17 05:00 NT-Pro-B Natriuret Pep 2600 pg/mL (0-450) H 09/06/17 08:30 Total Protein 5.5 g/dL (5.8-8.3) L 09/21/17 05:30 Albumin 2.5 g/dL (3.0-4.8) L 09/21/17 05:30 Globulin 2.9 gm/dL 09/21/17 05:30 Albumin/Globulin Ratio 0.9 (1.1-1.8) L 09/21/17 05:30 Triglycerides 143 mg/dL (35-160) 09/06/17 08:30 Cholesterol 124 mg/dL (130-200) L 09/06/17 08:30 LDL Cholesterol Direct 69 mg/dL (0-129) 09/06/17 08:30 HDL Cholesterol 31 mg/dL (29-60) 09/06/17 08:30 Lipase 48 U/L (23-300) 09/05/17 21:45 Prostate Specific Ag 1.9 ng/mL (0.00-2.5) 09/11/17 09:30 TSH 3rd Generation 1.15 mIU/mL (0.46-4.68) 09/06/17 06:45 Procalcitonin 0.69 NG/ML (0.19-0.49) H 09/18/17 13:30 Prolactin 9.1 ng/mL (3.7-17.9) 09/08/17 11:10 Venous Blood Potassium 5.0 mmol/L (3.6-5.2) 09/06/17 10:40 Arterial Blood Potassium 6.1 mmol/L (3.6-5.2) H 09/12/17 06:00 Urine Color Yellow (YELLOW) 09/05/17 23:00 Urine Appearance Sl cloudy (CLEAR) 09/05/17 23:00 Urine pH 6.0 (4.7-8.0) 09/05/17 23:00 Ur Specific [place] 1.025 (1.005-1.035) 09/05/17 23:00 Urine Protein Trace mg/dL (<30 mg/dL) H 09/05/17 23:00 Urine Glucose (UA) Negative mg/dL (NEGATIVE) 09/05/17 23:00 Urine Ketones Negative mg/dL (NEGATIVE) 09/05/17 23:00 Urine Blood Negative (NEGATIVE) 09/05/17 23:00 Urine Nitrate Positive (NEGATIVE) H 09/05/17 23:00 Urine Bilirubin Negative (NEGATIVE) 09/05/17 23:00 Urine Urobilinogen 0.2 E.U./dL (<1 E.U./dL) 09/05/17 23:00 Ur Leukocyte Esterase Small Barbi/uL (NEGATIVE) H 09/05/17 23:00 Urine RBC 0 - 2 /hpf (0-2) 09/05/17 23:00 Urine WBC 10 - 15 /hpf (0-6) 09/05/17 23:00 Ur Epithelial Cells 0 - 2 /hpf (0-5) 09/05/17 23:00 Urine Bacteria Many (NEG) 09/05/17 23:00 Digoxin < 0.4 ng/mL (0.8-2.0) L 09/05/17 23:00 Influenza Typ A,B (EIA) Negative for flu a/b (NEGATIVE) 09/06/17 01:50 Ur L.pneumophila Ag Negative (NEGATIVE) 09/07/17 09:00 Aspergillus Antigen Not detected (Not Detected) 09/14/17 11:30 Aspergillus Index Value 0.16 (<0.50) 09/14/17 11:30 Ur Strep pneumoniae Ag Not detected 09/07/17 09:00 Beta-(1,3)-D-Glucan <31 pg/mL 09/19/17 10:30 B-(1,3)-D-Glucan Intrp Negative 09/19/17 10:30 Attending/Attestation - Attestation I have personally seen and examined this patient.: Yes I have fully participated in the care of the patient.: Yes I have reviewed all pertinent clinical information, including history, physical exam and plan: Yes Notes (Text): 09/22/17 18:27 67 year old male with past medical history of CAD s/p stents, systolic CHF, rheumatoid arthritis, and hypertension who initially presented with chest pain and chills. Hospital course was complicated with respiratory failure / ARDS. He was also found to have NSTEMI and Afib for which he was on aspirin, metoprolol, lasix and eliquis. Statin was on hold due to elevated LFTs. He also had E coli bacteremia, pneumonia and UTI for which he was on antibiotics. He is now s/p trach. Patient is discharged to [facility]. Follow up with pmd and child support specialist. Continue with iv antibiotics. Repeat CT abd/pelvis in 3-4 days. Continue with iv diuresis for 2-3 days and switch to po lasix. Monitor LFTs as outpatient; consider starting statin once LFTs improve to normal. Susan Poole MD Hospitalist.
[2017-09-21 12:48] VITALS: PULSE 88
[2017-09-21 12:49] VITALS: BP 139/72; O2SAT 98
--- NOTE | 2017-09-21 13:33 | PN ---
DATE: 09/21/2017 REASON FOR CONSULTATION AND FOLLOWUP: [id number]-AP-[id number] elevation myocardial infarction, respiratory failure, Gram-negative sepsis, septic shock, rhabdomyolysis, vent dependent, status post tracheostomy day before yesterday. SUBJECTIVE: The patient is still on the vent. PHYSICAL EXAMINATION: GENERAL: Not in apparent distress, on vent. VITAL SIGNS: Temperature 99.8, heart rate 104, blood pressure 124/72. HEENT: PERRLA. Extraocular muscles intact. NECK: Supple. No carotid bruit or thyromegaly. CHEST: Clear to auscultation. HEART: S1 and S2, regular. ABDOMEN: Soft. EXTREMITIES: Clubbing and cyanosis negative. LABORATORY DATA: Blood workup as follows: WBC 11.1, hemoglobin 8.6, hematocrit 28.1, platelet count 171. Chemistry shows sodium 148, potassium 3.1, chloride 105, carbon dioxide 32, anion gap of 15, BUN 60, creatinine 1.3. Total protein 5.5, albumin 2.5, albumin-globulin ratio 0.9. IMPRESSION: Protein-calorie malnutrition, not present on admission; hypokalemia; anemia; Gram-negative sepsis; respiratory failure, status post tracheostomy, vent dependent; [id number]-elevation myocardial infarction; rheumatoid arthritis; and rhabdomyolysis. RECOMMENDATION: Off Dobutrex. Continue Lasix. Supplement aggressively potassium, two doses, we will give one stat now and one at 10:00 a.m. As the patient has been afebrile, can be discharged to LTAC. Continue metoprolol 50. We will start gastric prophylaxis with Pepcid. We started Eliquis 5 mg b.i.d. for AFib. We will follow with you. Overall, the patient's condition is critical. Long-term prognosis is guarded. Thank you, Dr. Poole, for providing us the opportunity in taking care of the patient, Blanco Russell. Gracia Arias MD
--- NOTE | 2017-09-21 15:04 | PN ---
DATE: SUBJECTIVE: Patient is in bed, in no acute distress, was seen this morning who was in trach and a vent. He appears to be comfortable this morning. PHYSICAL EXAMINATION: VITAL SIGNS: He has a temperature of 98 and T max is 99.4 to 100 and blood pressure is 128/60, respiratory rate is on the vent, heart rate of 93. HEENT: Examination of HEENT is unremarkable. NECK: Supple. The patient is in a trach. HEART: Normal S1, S2. ABDOMEN: Soft, nontender. LABORATORY EXAMINATION: Reveals a white count of 11,100, hemoglobin of 8, platelets of 171. Chemistries reveals a BUN of 60, creatinine of 1.3, AST is 62, ALT is 95. Urinalysis is noted. Serology is noted. Microbiology reveals the blood cultures are negative. Patient's chest x-ray from today is reviewed. ASSESSMENT AND PLAN: This is a 67-year-old male seen early this morning in 128, bed 5 with severe sepsis, status post shock and dependent respiratory failure, renal failure due to Escherichia coli bacteremia on top of a myocardial infarction, possible healthcare-associated pneumonia, pulmonary edema, hypertension, atrial fibrillation. Patient has rheumatoid arthritis by history, chronic obstructive lung disease, dyslipidemia, history of pancreatitis on day #12 of meropenem and doxycycline and day #8 of Zyvox and 8 of Mycamine. We will follow him closely with you. Patient's last procalcitonin is 0.69, which is improving. We will repeat another procalcitonin. Review of orders reveals the patient to be on meropenem, micafungin. Doxycycline has been discontinued by pharmacy. The nebulizer has also been discontinued by pharmacy. We will follow with you. Azael Lara MD
== END 2017-09-21 13:51 | DRG 3 ==
LOC: ED 21:07 → ERH 09-06 00:42 → 3RSO 09-06 02:57 → OBSVTOIN 09-06 14:54 → ICU 09-07 05:08
PROVIDERS: ADMIT Internal Medicine; ATTEND Internal Medicine
PROC: 5A1955Z Respiratory Ventilation, Greater than 96 Consecutive Hours (ICD-10-PCS; 2017-09-07)
PROC: 0BH18EZ Insertion of Endotracheal Airway into Trachea, Via Natural or Artificial Opening Endoscopic (ICD-10-PCS; 2017-09-07)
PROC: 06HY33Z Insertion of Infusion Device into Lower Vein, Percutaneous Approach (ICD-10-PCS; 2017-09-07)
PROC: B54BZZA Ultrasonography of Right Lower Extremity Veins, Guidance (ICD-10-PCS; 2017-09-07)
PROC: 03H533Z Insertion of Infusion Device into Right Axillary Artery, Percutaneous Approach (ICD-10-PCS; 2017-09-07)
PROC: 06HY33Z Insertion of Infusion Device into Lower Vein, Percutaneous Approach (ICD-10-PCS; 2017-09-07)
PROC: 0GBJ0ZZ Excision of Thyroid Gland Isthmus, Open Approach (ICD-10-PCS; 2017-09-19)
PROC: 0B110F4 Bypass Trachea to Cutaneous with Tracheostomy Device, Open Approach (ICD-10-PCS; principal; 2017-09-19 14:00)
DX: A41.51 Sepsis due to Escherichia coli [E. coli] (principal); I21.4 Non-ST elevation (NSTEMI) myocardial infarction; N17.0 Acute kidney failure with tubular necrosis; K72.00 Acute and subacute hepatic failure without coma; E46 Unspecified protein-calorie malnutrition; R57.0 Cardiogenic shock; R65.21 Severe sepsis with septic shock; J84.9 Interstitial pulmonary disease, unspecified; J18.9 Pneumonia, unspecified organism; G93.41 Metabolic encephalopathy; I50.43 Acute on chronic combined systolic (congestive) and diastolic (congestive) heart failure; J96.01 Acute respiratory failure with hypoxia; E87.4 Mixed disorder of acid-base balance; I13.0 Hypertensive heart and chronic kidney disease with heart failure and stage 1 through stage 4 chronic kidney disease, or unspecified chronic kidney disease; I50.22 Chronic systolic (congestive) heart failure; E87.0 Hyperosmolality and hypernatremia; G25.9 Extrapyramidal and movement disorder, unspecified; M62.82 Rhabdomyolysis; N39.0 Urinary tract infection, site not specified; Z99.11 Dependence on respirator [ventilator] status; E11.22 Type 2 diabetes mellitus with diabetic chronic kidney disease; I48.2 Chronic atrial fibrillation; D64.9 Anemia, unspecified; E78.00 Pure hypercholesterolemia, unspecified; E78.5 Hyperlipidemia, unspecified; E83.42 Hypomagnesemia; E87.5 Hyperkalemia; E87.6 Hypokalemia; F17.290 Nicotine dependence, other tobacco product, uncomplicated; G89.29 Other chronic pain; I25.10 Atherosclerotic heart disease of native coronary artery without angina pectoris; I25.5 Ischemic cardiomyopathy; I34.0 Nonrheumatic mitral (valve) insufficiency; J43.9 Emphysema, unspecified; K06.8 Other specified disorders of gingiva and edentulous alveolar ridge; K21.9 Gastro-esophageal reflux disease without esophagitis; K40.90 Unilateral inguinal hernia, without obstruction or gangrene, not specified as recurrent; K76.0 Fatty (change of) liver, not elsewhere classified; M06.9 Rheumatoid arthritis, unspecified; N18.9 Chronic kidney disease, unspecified; Y95 Nosocomial condition; Z79.01 Long term (current) use of anticoagulants; Z79.82 Long term (current) use of aspirin; Z79.84 Long term (current) use of oral hypoglycemic drugs; Z79.899 Other long term (current) drug therapy; Z82.49 Family history of ischemic heart disease and other diseases of the circulatory system; Z87.01 Personal history of pneumonia (recurrent); Z89.422 Acquired absence of other left toe(s); Z90.49 Acquired absence of other specified parts of digestive tract; Z95.5 Presence of coronary angioplasty implant and graft